=== PATIENT | female | born 1965 | race Caucasian/White ===

== ENCOUNTER 2018-03-20 07:45 | Outpatient (RCR) | payer SELFPAY ==
--- NOTE | 2018-03-21 08:28 | HP.OTFCE_ITS ---
HP OT Functional Capacity Eval - Task Lift Floor (Occasional 1-33% of Day): 30# Floor (Frequent 34-66% of Day): 15# Floor (Constant 67-100% of Day): 6# Floor PDL: Light-Medium Knee (Occasional 1-33% of Day): 30# Knee (Frequent 34-66% of Day): 15# Knee (Constant 67-100% of Day): 6# Knee PDL: Light-Medium Waist (Occasional 1-33% of Day): 30# Waist (Frequent 34-66% of Day): 15# Waist (Constant 67-100% of Day): 6# Waist PDL: Light-Medium Shoulder (Occasional 1-33% of Day): 20# Shoulder (Frequent 34-66% of Day): 10# Shoulder (Constant 67-100% of Day): NA Shoulder PDL: Light Overhead (Occasional 1-33% of Day): 15# Overhead (Frequent 34-66% of Day): 10# Overhead (Constant 67-100% of Day): NA Overhead PDL: Light Comments: pt demo with poor lifting mechanics, small base of support, and curved back while lifting from lower levels. - Work Activity/Posture Bending: Occasional Ability (1-33% of day) Squatting: Occasional Ability (1-33% of day) Kneeling: Occasional Ability (1-33% of day) Reaching out: Occasional Ability (1-33% of day) Reaching up: Occasional Ability (1-33% of day) Sitting: Frequent Ability (34-66% of day) Walking: Occasional Ability (1-33% of day) Standing: Occasional Ability (1-33% of day) - Reference Duration Sedentary Sedentary Light Light Light Medium Medium Medium Heavy Very Heavy Heavy Occasional (0-33% of day) Frequent (34-66% of day) Constant (67-100% of day) 10 # Negligible Negligible 15 # 8 # Negligible 20 # 10# Negli. 35 # 18 # 7 # 50 # 25 # 10 # 75 # 100 # >100 # 38 # 50 # >50 # 15 # 20 # >20 # - Patient Information Height: 1.57 m Weight:: 90.718 kg Hand Dominance: Right - Medical History Medical History Including Restrictions: Pt states 2013 she had a rotator cuff sx followed with physical therapy. Pt states she could not return to work- Pt states she was dx in 2015 Fibromyalgia. 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 Pt states she was seeing pain mtg from [id number] for injection for neck and back pain. Pt states she lost her medical insurance throught the school and could no longer get her pain injections. Pts pain is mtg by family doctor Dr. Murillo. Pt states her pain mtg dr. mcdowell put her on a lift restriction of no more than 25#. pt does not exercise on a regular basis. - Diagnoses Diagnoses: Lumbago M54.5. Cirvicalgia M54.2 dx. 2012. Fibromyalgia M79.7 - Symptoms Symptoms: LE swelling. Back pain. Neck pain. Bilateral shoulder pain. Dizzy. Tired. Sore muscles - Pain Pain: Pt reports her current pain is 7/10 with pain medication. 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 Pt states she was driving buses for eight and half years. pt states she was unable to return to driving bus following a right shoulder sx. Pt states she was unable to open the bus doors following sx. 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 - Behavioral Behavioral: pt was cooroperative throughout assessment- demo flat affect throughout. - ADLS ADLS: Pt states she lives with her spouse and two sons (ages 18 &16) in a ranch home with a basement. Pt states she has two entry steps. Pt states she can go up and down the basement steps but rarly does because it it such a challenge.Pt states she drives ind. Pt states she is ind. with bathing. pt states she does have trouble getting shirts over her head that required her dtr to help her. Pt states in the last two weeks she has needed her dtrs help about 6 times with dressing. Pt states her family helps with laundry and she will sit and fold the laundry. Pt states her 16 and 18 year old sons and help her with cooking. pt states dtr does the cleaning. Pt states her spouse does the grocery shopping. - Physical Examination ROM: Pt demo with all ROM WFL grossly throughout. Strength: Pt was inconsistan with MMT- testing same UB/LB between 4-/5 and 4+/5 Right Property Assistant Strength Average: 24.00 Right Property Assistant Strength Percentile: <.2% Left Property Assistant Strength Average: 13.33 Left Property Assistant Strength Percentile: <.2% Right Lateral Pinch Average: 4.00 Right Lateral Pinch Percentile: <10% Left Lateral Pinch Average: 3.33 Left Lateral Pinch Percentile: <10% Right Tripod Pinch Average: 4.66 Right Tripod Pinch Percentile: <10% Left Tripod Pinch Average: 4.66 Left Tripod Pinch Percentile: <10% Comments: pt demo a weak delivery associate and pinch strength Sensation: Did not report sensation deficit Fine Motor: right 9 hole peg 30 sec,. left 9 hole peg 28 sec. Balance: No loss of balance. - Non Material Handling Activities Bending: Pt demo the ability to bend forward three times, ten times and ten times rapidly. pt states she felt sore in her legs and back. Pt reported 7/ 10.pt can bend forward on a occasional basis. Squatting: pt demo the ability to squat three times with external support- pt did completed ten times and ten times rapidly (no increase in pace) with poor tyler. and utilized UB more than LE- pt can squat on a low occasional basis. Kneeling: pt demo the ability to kneel three times, ten times and ten times rapidly. pt did use external support to perform this task. Pt also switched LE with task. pt can kneel on a occasional basis with use of external support. Reaching out/up: Pt demo the ability to reach out/up three times, ten times and ten times rapidly. pt performed task sitting. pt can reach up/out on a occasional basis. Pt reported she felt exhausted following. Walking: Pt demo the abilty to ambulate for 9 min. with a slow antalgic gait. Pt reported body hurts everywhere, 8/10 pain. Pt demo the ability to amb on a occasional basis. Standing: PT demo the ability to stand for 4 min using counter top to lean on. pt can stand on a low occasional basis. Sitting: Pt demo the ability to sit for 45 min with no expressed or apparent discomfort. pt can sit on a frequent basis. Climbing Stairs: pt demo the ability to ascend/descend ten steps using bilateral hand rails and a reciprical step pattern. - Dynamic Occasional Lifting Capacity Floor Lift: pt demo the ability to lift 30# maximally from this level. Knee Lift: pt demo the ability to lift 30# maximally from this level. Waist Lift: pt demo the ability to lift 30# maximally from this level. Shoulder Lift: pt demo the ability to lift 20# maximally from this level. Overhead Lift: pt demo the ability to lift 15# maximally from this level. Carrying: pt demo the ability to carry 15 # for 40 feet. 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 Pt stated her back was killling her following the lifting tasks. Pt reported back pain 03/30.
== END 2018-03-20 19:00 | disposition home or self-care (01) ==
LOC: OT 07:45
PROVIDERS: Family Provider Internal Medicine; PCP Internal Medicine; Visit Provider Internal Medicine
DX: M54.5 Low back pain (principal); M54.2 Cervicalgia; M79.7 Fibromyalgia
CPT/HCPCS: 97750

== ENCOUNTER 2019-04-28 21:00 | Emergency (ER) | payer SELFPAY ==
[2019-04-28 21:00] VITALS: BP 112/82; PULSE 88; RESP 16; TEMP 36.6; O2SAT 97; BMI 38.6
[2019-04-28 21:14] VITALS: BP 112/82; PULSE 88; RESP 16; O2SAT 97
--- NOTE | 2019-04-28 21:17 | ED.DCSUM_ITS ---
- ER Visit Summary Date of Service: 04/28/19 Chief Complaint: Back pain History of Present Illness: The patient is a 53 F with history of chronic back pain. She has back pain in her lower left lumbar region that radiates down her leg. This has been going on for 3 days. Worse with gardening. Nothing seemed to make it better. She normally is prescribed fentanyl patches, but she says she ran out because sweat makes them fall off. Denies any urinary or bowel symptoms. Denies any weakness. Denies fevers or recent illness. Denies any direct trauma. Physical Examination: Afebrile and vital signs unremarkable. Left lower lumbar region is tender to palpation. Straight leg raise negative. Good strength and sensation. Legs unremarkable. Abdomen soft and nontender. Test Results: None indicated Emergency Department Course and Treatment: There is no indication for imaging or diagnostic testing. I advised that I cannot refill her fentanyl patches. She needs to follow-up with her physician if there is a problem with her prescriptions. We will treat her with Littcarr and a shot of Kenalog here today. She may use aead-owk-jkubvop remedies at home. We will not prescribe controlled substances. Treatment Plan: As above Disposition: Discharge Impression: 1. Left sciatica This note was generated with [employer] dictation software. It may contain incorrect words, spelling, and punctuation that were not noted in review of the chart prior to signing ED Disposition - Plan for ED Patient: Referrals: Jabari Murillo MD [Primary Care Provider] -
--- NOTE | 2019-04-28 21:18 | ED.DEP ---
ED Disposition - Plan for ED Patient: Instructions: BACK PAIN w/ SCIATICA Referrals: Jabari Murillo MD [Primary Care Provider] -
[2019-04-28] MEDS: Triamcinolone Acetonide 40 MG/ML Vial IM (21:28)
[2019-04-28] MEDS: HYDROcodone Bitartrate/Apap 5/325 Tablet PO (21:28)
== END 2019-04-28 21:47 | disposition home or self-care (01) ==
LOC: ED 21:27
PROVIDERS: Emergency Provider Emergency Medicine; Family Provider Internal Medicine; PCP Internal Medicine
DX: M54.42 Lumbago with sciatica, left side (principal)
CPT/HCPCS: 96372; 99283

== ENCOUNTER → 2020-05-11 12:05 | Outpatient (CLI) | payer MEDICAID, SELFPAY ==
[2020-05-11 12:35] LABS: Hematocrit 35.3 % (37-47); Hemoglobin 10.4 g/dL (12.0-15.0); Mean Corp Hgb Conc 29.5 g/dL (32-36); Mean Corpuscular Volume 81.5 fL (81-99); Mean Platelet Vol. 9.1 fl (6.2-12.0); Platelet Count 288 K/mm3 (150-450); RBC Distribution Width CV 15.1 % (11.6-14.6); RBC Distribution Width SD 44.5 fl (35.1-43.9); Red Blood Count 4.33 M/mm3 (4.2-5.4); White Blood Count 9.5 K/mm3 (4.4-11.0)
[2020-05-11 12:53] LABS: ALB/GLOB Ratio 0.9 RATIO (0.9-2.4); AST(SGOT) 43 U/L (15-37); Alanine Aminotransfer ALT/SGPT 40 U/L (13-56); Albumin, Serum 3.4 g/dL (3.2-5.0); Alkaline Phosphatase 185 U/L (45-117); Amylase 25 U/L (25-115); Anion Gap 7 (5-15); BUN 11 mg/dL (7-18); BUN/Creat Ratio 11.9 RATIO (10-20); Calcium,Total 9.5 mg/dL (8.5-10.1); Chloride 107 mmol/L (98-107); Creatinine, Serum 0.93 mg/dL (0.55-1.02); EST Glomerular Filtration Rate 67 mL/min (>60); Est Glom Filt Rate - Afr Amer 81 mL/min (>60); Globulin 3.8 g/dL (2.2-4.2); Glucose 155 mg/dL (74-106); Lipase 42 U/L (73-393); Potassium 3.9 mmol/L (3.5-5.1); Protein, Total 7.2 g/dL (6.4-8.2); Sodium Level 141 mmol/L (136-145)
== END ==
PROVIDERS: PCP Internal Medicine; Visit Provider Nurse Practitioner
DX: R10.11 Right upper quadrant pain (principal)
CPT/HCPCS: 36415; 80053; 82150; 83690; 85027

== ENCOUNTER → 2020-06-10 17:47 | Outpatient (CLI) | payer MEDICAID, SELFPAY ==
[2020-05-19 10:08] VITALS: BMI 38.6
== END ==
PROVIDERS: PCP Internal Medicine; Referring Provider Internal Medicine; Visit Provider Internal Medicine
DX: R68.89 Other general symptoms and signs (principal)
CPT/HCPCS: 87635; 87804; C9803; U0003

== ENCOUNTER 2020-06-17 14:15 | Emergency (ER) | payer MEDICAID, SELFPAY ==
[2020-05-19 10:08] VITALS: BMI 38.6
[2020-06-17 14:15] VITALS: BP 155/110; PULSE 90; RESP 18; TEMP 36.5; O2SAT 96; BMI 38.9
--- NOTE | 2020-06-17 14:41 | ED.DCSUM_ITS ---
- ER Visit Summary Date of Service: 06/17/20 Chief Complaint: Shortness of breath History of Present Illness: The patient is a 55 F who presents with shortness of breath that has been getting worse over the past 9 days. Patient states her breathing is worse with any exertion. Patient admits to a cough with some brown sputum. Patient also admits to a sore throat, rhinorrhea, and right ear pain. Patient states she was diagnosed with COVID-19 1 week ago. Patient admits to a fever of 102 at home. Patient admits to loss of taste and smell. Patient denies any chest pain. Patient does admit to some myalgias and back pain. Patient admits to some mild nausea but denies any vomiting. Physical Examination: Vital signs are stable. Patient is afebrile. Patient is in no acute distress. Oral mucosa is pink and moist. Neck is supple. Trachea is midline. There is no JVD noted. Heart was regular rate and rhythm. Lungs showed rales in the left base. Abdomen is soft. Bowel sounds are normal. There is no tenderness. There is no rebound or guarding noted. Skin is warm d ry. Cranial nerves II through XII are intact. There are no focal motor or sensory deficits noted. Extremities are intact. There is no calf tenderness or edema. Test Results: CBC and comprehensive metabolic profile were essentially within normal limits. Portable chest x-ray shows diffuse pulmonary infiltrates with consolidation in the left lung base consistent with pneumonia. Emergency Department Course and Treatment: Patient was given albuterol inhaler here. Patient was feeling better on reevaluation. Patient was given her first dose of Zithromax here. Patient was given a prescription for Zithromax. Patient was instructed to follow-up with her primary care physician in 5 to 7 days. Patient was instructed to return if worse in any way. Patient understood and was agreeable with the plan. All questions were answered. Disposition: Discharge home Impression: 1. Pneumonia 2. COVID-19 This note was generated with [employer] dictation software. It may contain incorrect words, spelling, and punctuation that were not noted in review of the chart prior to signing ED Disposition - Plan for ED Patient: Disposition: Home or Assisted Living Diagnosis: Pneumonia, COVID-19 Instructions: ED PNEUMONITIS Adult Prescriptions: Azithromycin [Zithromax] 250 mg PO DAILY #4 tab Transmission Status: Pending to As Seen on TV #30 Referrals: Jabari Murillo MD [Primary Care Provider] - 5-7 Days
[2020-06-17 14:51] VITALS: O2SAT 100
--- NOTE | 2020-06-17 14:55 | RAD_ITS ---
STUDY: X-RAY CHEST REASON FOR EXAM: Female, 55 years old. Worsening shortness of breath. Diagnosed with COVID 19 10 days ago. TECHNIQUE: Single AP portable view of the chest. COMPARISON: None. FINDINGS: The lungs are hypoexpanded. There is diffuse interstitial changes in both lungs were evidence of consolidation in the lateral left lung base. There is no demonstrated pleural abnormality. Normal size heart. Normal mediastinum and kristy. Normal visualized pulmonary arteries. Normal visualized aortic arch and descending thoracic aorta. There is mild dextroscoliosis and degenerative changes of the thoracic spine. Normal visualized ribs, clavicles, and shoulders. There is no demonstrated abnormality of the visualized soft tissue structures of the upper abdomen. RAD/Chest 1 View (Portable) IMPRESSION: Diffuse pulmonary infiltrates with consolidation at the left lung base consistent with pneumonia. Electronically Signed: Nitin Rushing DO at 16:32 EDT Tel [phone], Service support ,
[2020-06-17 15:09] LABS: Absolute Lymphocyte Count 0.71 X10^3/uL (0.83-4.51); Absolute Neutrophil Count 3.7 X10^3/uL (2.0-7.7); Basophil# 0.01 X10^3/uL; Basophil% 0.2 % (0-1); Eosinophil# 0.04 X10^3/uL; Eosinophils% 0.8 % (0-5); Hematocrit 33.8 % (37-47); Hemoglobin 10.1 g/dL (12.0-15.0); Lymphocyte # 0.71 X10^3/ul (4.0); Lymphocyte % 14.4 % (19-41); Mean Corp Hgb Conc 29.9 g/dL (32-36); Mean Corpuscular Hgb 24.3 pg (27.0-32.0); Mean Corpuscular Volume 81.4 fL (81-99); Mean Platelet Vol. 8.7 fl (6.2-12.0); Monocyte# 0.44 X10^3/uL; Monocyte% 8.9 % (0-10); NRBC Flagged by Analyzer 0 % (0-5); Neutrophil # 3.69 X10^3/uL (2.7-7.7); Neutrophil % 74.7 % (47-70); Platelet Count 226 K/mm3 (150-450); Red Blood Count 4.15 M/mm3 (4.2-5.4); White Blood Count 4.9 K/mm3 (4.4-11.0)
[2020-06-17 15:19] LABS: ALB/GLOB Ratio 0.7 RATIO (0.9-2.4); AST(SGOT) 29 U/L (15-37); Alanine Aminotransfer ALT/SGPT 29 U/L (13-56); Albumin, Serum 2.9 g/dL (3.2-5.0); Alkaline Phosphatase 199 U/L (45-117); Anion Gap 6 (5-15); BUN 8 mg/dL (7-18); BUN/Creat Ratio 10.3 RATIO (10-20); Chloride 108 mmol/L (98-107); Creatinine, Serum 0.78 mg/dL (0.55-1.02); EST Glomerular Filtration Rate 82 mL/min (>60); Est Glom Filt Rate - Afr Amer 99 mL/min (>60); Globulin 4.4 g/dL (2.2-4.2); Glucose 143 mg/dL (74-106); Potassium 4.1 mmol/L (3.5-5.1); Protein, Total 7.3 g/dL (6.4-8.2); Sodium Level 141 mmol/L (136-145)
[2020-06-17 16:16] VITALS: BP 111/71; PULSE 103; RESP 21; TEMP 36.6; O2SAT 95
[2020-06-17 17:06] VITALS: BP 111/72; PULSE 106; RESP 18; TEMP 36.7; O2SAT 97
[2020-06-17 17:07] VITALS: BP 111/72; PULSE 106; RESP 18; O2SAT 97
[2020-06-17] MEDS: Azithromycin 250 MG Tablet 500 MG PO (17:11)
== END 2020-06-17 17:12 | disposition home or self-care (01) ==
PROVIDERS: Emergency Provider Emergency Medicine; PCP Internal Medicine
DX: U07.1 COVID-19 (principal); J12.89 Other viral pneumonia
CPT/HCPCS: 71045; 80053; 83605; 85025; 87040; 99283; A4216

== ENCOUNTER → 2020-07-30 13:27 | Outpatient (CLI) | payer MEDICAID, SELFPAY ==
--- NOTE | 2020-07-30 13:33 | RAD_ITS ---
STUDY: X-RAY - LUMBAR SPINE REASON FOR EXAM: Female, 55 years old. CHRONIC PAIN TECHNIQUE: 3 view(s) of the lumbar spine were obtained. COMPARISON: None FINDINGS: Normal lumbar lordosis. There is no substantial scoliosis. There is multilevel endplate spondylosis of the lumbar vertebrae. There is multi-level degenerative disc disease with multi-level disc space narrowing. RAD/Lumbar Spine 2 or 3 Views IMPRESSION: Multi-level degenerative disc disease with multi-level disc space narrowing. Electronically Signed: Megha Andres MD at 11:06 EST Tel , Service support ,
--- NOTE | 2020-07-30 13:33 | RAD_ITS ---
STUDY: X-RAY - CERVICAL SPINE REASON FOR EXAM: Female, 55 years old. Chronic pain. Fall this morning. TECHNIQUE: 3 view(s) of the cervical spine were obtained. COMPARISON: None FINDINGS: Normal anterior atlantoaxial articulation. Normal odontoid process. Normal cervical lordosis. Diffuse uncovertebral and facet sclerosis. Diffuse intervertebral disc space narrowing with osteophyte formation most marked at C3-4, C5-6 and C6-7. The soft tissue structures are unremarkable. RAD/Cerv Spine 2 or 3 Views IMPRESSION: Diffuse moderate to marked cervical spondylosis as described. No acute finding. Electronically Signed: Marin Landaverde MD at 13:22 EST , Service support ,
== END ==
PROVIDERS: PCP Internal Medicine; Referring Provider Anesthesiology Pain Medicine; Visit Provider Anesthesiology Pain Medicine
DX: M54.9 Dorsalgia, unspecified (principal); M54.2 Cervicalgia
CPT/HCPCS: 72040; 72100

== ENCOUNTER → 2024-09-11 | Outpatient (CLI) | payer OTHER, SELFPAY ==
--- NOTE | 2024-09-11 12:36 | RAD_ITS ---
EXAM: XR CERVICAL SPINE, 2 OR 3 VIEWS CLINICAL INDICATION: PAIN TECHNIQUE: Frontal and lateral views of the cervical spine. COMPARISON: 07/30/2020. FINDINGS: VERTEBRAE: No acute or remote fractures of the vertebral bodies and posterior osseous elements. No lytic or blastic lesions. DISC SPACES: More pronounced degenerative disc space narrowing with increased vertebral endplate sclerosis at C3-C4 disc space level. Moderate disc space narrowing at C5-C6 and C6-C7 disc space levels with anterior marginal spurs are unchanged. Moderate C7-T1 disc space narrowing is a new finding. No acute fractures. SOFT TISSUES: Unremarkable. No prevertebral soft tissue widening. LUNG APICES: Clear. RAD/Cerv Spine 2 or 3 Views IMPRESSION: 1. More pronounced degenerative disc space with increased endplate sclerosis at C3-C4 disc space level. 2. Moderate C7-T1 disc space height narrowing is a new finding. 3. Moderate C5-C6 and C6-C7 disc space narrowing are unchanged. Electronically Signed: Deangelo Conn MD at 16:09 EST ,
--- NOTE | 2024-09-11 12:36 | RAD_ITS ---
EXAM: XR THORACIC SPINE, 3 VIEWS CLINICAL INDICATION: PAIN TECHNIQUE: Frontal, lateral and swimmer''s views of the thoracic spine. COMPARISON: 02/13/2012. FINDINGS: VERTEBRAE: Mild old anterior wedge compression fractures involving T7, T8 and T9 vertebral bodies are unchanged. No spondylolisthesis. Preservation of the normal thoracic kyphosis. No significant facet arthropathy. DISC SPACES: Unremarkable. Disc spaces are maintained. RAD/Thoracic Spine 3 Views IMPRESSION: 1. No suspicious acute fractures of the thoracic spine. 2. Mild old anterior wedge compression fractures involving T7, T8 and T9 are unchanged. Electronically Signed: Deangelo Conn MD at 16:11 EST ,
== END | disposition home or self-care (01) ==
LOC: RAD 12:32
PROVIDERS: PCP Internal Medicine; Referring Provider Anesthesiology Pain Medicine; Visit Provider Anesthesiology Pain Medicine
DX: M54.9 Dorsalgia, unspecified (principal)
CPT/HCPCS: 72040; 72072

== ENCOUNTER 2025-03-20 10:30 | Outpatient (RCR) | payer OTHER, SELFPAY ==
--- NOTE | 2025-02-03 09:12 | HP.PTEVAL_ITS ---
Patient's Visit Information Visit Information Visit Information: CHICA SHAH is a 59 year old F referred to Physical Therapy by Dr. Hemalatha Negro MD with a diagnosis of Back pain, neck pain. Date of Evaluation: 02/03/25 Physical Therapist: Schuyler Conway, DPT, OCS, CSCS Visit Plan Frequency: 2x /Week Duration: 4-6 Weeks Plan: 2x/weeek for 4-6 for aquatic based therapy for: core , postural and UE/LE strength to I pool or HEP. ext bias lumbar ROM, postural correction. IE: pool intro and policies, postural education, activitiy modification with position in car and overdoing gardening at home. Subjective Subjective: Neck and cervical and b/w shoulder blades and into LB. They have hurt for years. [place] up [place] Lots of work. Neck shoulder blade pain to 10 and some days 0, took pain pills this am. Pulling weeds makes it worse. somebody's got to do it. LB 0-9/10 and keeps her up at night, was in garden a lot yesterday. Weak in legs. Feet an get numb. These are worse later in day. 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 No regular ex. Basic ADLs, all I sometimes hurt. Pain Neck, shoulder baldes.: Pain Intensity (Out of 10): 1 Pain Intensity Range: 0 and 10 LBP: Pain Intensity (Out of 10): 1 Pain Intensity Range: 0 and 10 Objective Objective: Walks back to PT slow but I. Trasnfers with UE I chair and table. Lumb ar aROM ext mod limtid and painful centrally, flexiona dn SB fulla nd painfree today. cervical aROM 45 rotation B without pain, ext 40 . Posture is forward head and protractd scap B, postural kyphosis. reflexes 1/3 patella and achilles and bi and tri sensation UE and LE WNL to gross light touch B UE and L. strength UE 3+ shoulder elbow, shoulder rotations and wrist, LE strngth 3 flexion abd, ext hips, ext knees and 3+ HS, ankles 4-. no pain just not hard contraactions. core strength flexion 3 and ext 3. Obvious instability with seated testing. 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 Goal Time Frame: 4-6 Weeks Goal 5:: 14 or less oswestry Goal Time Frame: 4-6 Weeks Rehabilitation Potential Physical Therapy Diagnosis: back and nec weeakness and pain limiting comfortable funciton Rehabilitation Potential: Fair Anticipated Interventions Patient/Client Instruction: Educate patient on: Condition and Plan of Care For the Purpose of:: To decrease pain, To increase ROM, To improve nutrient delivery to tissue and To improve muscle performance and motor function Therapeutic Exercise to Include: Strength training, In an aquatic setting, Passive ROM, Active ROM and Dynamic Lumbar Stabilization For the Purpose of:: To decrease pain, To increase ROM, To improve muscle performance and motor function, To increase tolerance to activity/condition/position and To improve ability of physical actions for home/community/work/leisure Text: Thank you for the opportunity to evaluate your patient. For Medicare and Medicare HMO plans, please review the plan of care and approve it. It will need to be FAXED BACK to us at [phone] for Medicare purposes. For Medicare only, by signing this I certify the plan of care. Please let me know if there are questions or concerns regarding this plan of care. Physician Signature: Date:
--- NOTE | 2025-03-20 10:48 | HP.PTDCSUM ---
Discharge Summary D/C summary: It has been my pleasure to treat CHICA SHAH referred by Dr. Hemalatha Negro MD, with the diagnosis of Back pain, neck pain for a total of 6 visit(s). Discharge Date: 03/20/25 Please see the following information for a summary of their discharge status. Subjective Subjective: Not doing much better pain lorenzo, saw Gavinoantony last week adn is putting in for injections in neck and LB. Pain is about the same 5-8/10. LB is killer 9/10 at times. Was daniel last night sitting and it was hurting pretty good. Did up to 8 hours worth. HEP at counter: hurt a little. Pool can hurt LB but feeels better in the water. Pain Neck, shoulder baldes.: Pain Intensity (Out of 10): 5 LBP: Pain Intensity (Out of 10): 5 Overall Improvement % Improvement: 0 Objective Objective/Function: Lumb ar AROM ext min limited and painful. SB without increaseed pain, flexion slow but not painful, just stretchy. Walks into PT without antalgia and stiff but I with gait and transfers. 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 d/c sentence: If there are questions or concerns regarding this patient's physical therapy, please feel free to call me at [phone]. Thank you for the referral of this patient. Sincerely, Schuyler Conway, DPT, OCS, CSCS Balance/Gait/Functional tests Balance/Special Test Scores Oswestry Low Back Score: 25 Improvement % Improvement: 0
== END 2025-03-20 12:26 | disposition home or self-care (01) ==
LOC: PT 10:30
PROVIDERS: PCP Internal Medicine; Referring Provider Anesthesiology Pain Medicine; Visit Provider Anesthesiology Pain Medicine
DX: M54.2 Cervicalgia (principal)
CPT/HCPCS: 97113; 97161; 97164

== ENCOUNTER → 2025-05-12 | Outpatient (CLI) | payer OTHER, SELFPAY ==
[2025-05-12 11:19] LABS: AST(SGOT) 27 U/L (<=31); Alanine Aminotransfer ALT/SGPT 24 U/L (<=34); Albumin, Serum 4.3 g/dL (3.4-4.8); Alkaline Phosphatase 157 U/L (35-104); Anion Gap 12 (5-15); BUN 11 mg/dL (4-19); BUN/Creat Ratio 15.6 RATIO (10-20); Calcium,Total 9.3 mg/dL (7.6-11.0); Carbon Dioxide 23.1 mmol/L (21.0-32.0); Chloride 108 mmol/L (98-108); Globulin 2.4 g/dL (2.2-4.2); Glucose 81 mg/dL (70-99); Potassium 4.0 mmol/L (3.3-5.1)
== END | disposition home or self-care (01) ==
PROVIDERS: PCP Internal Medicine; Referring Provider Nurse Practitioner; Visit Provider Nurse Practitioner
DX: E11.69 Type 2 diabetes mellitus with other specified complication (principal); E66.9 Obesity, unspecified; E03.9 Hypothyroidism, unspecified
CPT/HCPCS: 36415; 80053; 83036; 84443

== ENCOUNTER → 2025-05-15 | Outpatient (CLI) | payer OTHER, SELFPAY ==
--- NOTE | 2025-05-15 15:09 | MRI_ITS ---
PROCEDURE: SPINE CERVICAL (ROUTINE) 05/15/2025 REASON FOR EXAM: RADICULOPATHY CERVICAL REGION TECHNIQUE: Procedure Code: MRISPC Modality: MR Procedure: SPINE CERVICAL (ROUTINE) Multiplanar and multisequence images were obtained without IV contrast administration. COMPARISON: None available. FINDINGS: The visualized posterior fossa contents appear within normal limits. The normal cervical lordosis is maintained. The atlantooccipital and atlantoaxial joints appear normally aligned. The cervical vertebral bodies are normal in height. The cervical vertebral bodies are normal in alignment. The cervical bone marrow signal is within normal limits. Multilevel disc desiccation and intervertebral disc space height loss. There is questionable trace T2/STIR hyperintensity of the cord at C3-C4. The remaining cervical spinal cord signal is otherwise within normal limits. C2-C3: No significant spinal canal stenosis. Facet arthrosis and uncovertebral spurring contribute to moderate left neural foraminal narrowing. Intact right neural foramen. C3-C4: Posterior disc osteophyte complex formation, bilateral facet arthrosis, uncovertebral spurring and ligamentum flavum hypertrophy contribute to moderate to severe spinal canal stenosis with indentation of the cord. Moderate bilateral neural foraminal narrowing. C4-C5: Posterior disc osteophyte complex formation, bilateral facet arthrosis, uncovertebral spurring, and ligamentum flavum hypertrophy contribute to moderate spinal canal stenosis with indentation of the ventral cord. Moderate right and severe left neural foraminal narrowing. C5-C6: Central disc protrusion, bilateral facet arthrosis, uncovertebral spurring, and ligamentum flavum hypertrophy contribute to moderate spinal canal stenosis. Moderate bilateral neural foraminal narrowing. C6-C7: Central disc protrusion, bilateral facet arthrosis, and uncovertebral spurring contribute to moderate spinal canal stenosis. Moderate bilateral neural foraminal narrowing. C7-T1: Central disc protrusion, bilateral facet arthrosis, and uncovertebral spurring contribute to mild spinal canal stenosis. Mild bilateral neural foraminal narrowing. MRI/Spine Cervical (Routine) IMPRESSION: Advanced multilevel cervical spondylosis most marked at C3-C4 where there is mo [id number] spinal canal stenosis with impingement of the cord. Questionable trace edematous cord signal change at th is level. The remaining cervical spinal cord signal is within normal limits. In compliance with [place] State Law Act 112, an automated letter has been sent to this patient notifying them that there are findings on this exam that warrant further discussion with their healthcare provider. Communication Alert The findings in the impression above were relayed directly by Dr. America Goddard by telephone to Dr. Hemalatha Negro on 05/19/2025 at 9:37 am with readback verification. Reading Location: [id number]
== END | disposition home or self-care (01) ==
LOC: MRI 15:00
PROVIDERS: PCP Internal Medicine; Referring Provider Anesthesiology Pain Medicine; Visit Provider Anesthesiology Pain Medicine
DX: M54.12 Radiculopathy, cervical region (principal)
CPT/HCPCS: 72141

== ENCOUNTER → 2025-06-30 | Outpatient (CLI) | payer OTHER, SELFPAY ==
--- NOTE | 2025-06-30 12:45 | RAD_ITS ---
PROCEDURE: CERV SPINE 4 OR 5 VIEWS 06/30/2025 REASON FOR EXAM: NECK PAIN TECHNIQUE: Procedure Code: [facility] Modality: DX Procedure: CERV SPINE 4 OR 5 VIEWS COMPARISON: 05/15/2025. 09/11/2024. FINDINGS: No evidence of acute fracture or dislocation. Severe degenerative changes of the visualized spine. Vertebral body heights are maintained. Normal alignment. RAD/Cerv Spine 4 or 5 Views IMPRESSION: Severe spondylosis. Disclaimer: Reading Location: [id number]
== END | disposition home or self-care (01) ==
LOC: RAD 12:19
PROVIDERS: PCP Internal Medicine; Referring Provider Student in an Organized Health Care Education/Training Program; Visit Provider Student in an Organized Health Care Education/Training Program
DX: M54.2 Cervicalgia (principal)
CPT/HCPCS: 72050

== ENCOUNTER 2025-07-30 14:44 | Observation (INO) | payer OTHER, SELFPAY ==
--- NOTE | 2025-07-29 12:36 | EKG12_ITS ---
Test Reason : PREOP Blood Pressure : */* mmHG Vent. Rate : 100 BPM Atrial Rate : 100 BPM P-R Int : 118 ms QRS Dur : 76 ms QT Int : 340 ms P-R-T Axes : 59 22 20 degrees QTcB Int : 438 ms Normal sinus rhythm Normal ECG Confirmed by Elpidio Norman ([id number]), society editor AMANDEEP MANN ([id number]) on 07/30/2025 11:39:13 AM Referred By: Frank Hong Confirmed By: Elpidio Norman
[2025-07-29 13:36] LABS: Hematocrit 36.7 % (37-47); Hemoglobin 11.9 g/dL (12.0-15.0); Immature Granulocytes Count 0.030 X10^3/uL (0.0-0.0); Mean Corp Hgb Conc 32.4 g/dL (32-36); Mean Corpuscular Volume 85.3 fL (81-99); Mean Platelet Vol. 9.1 fl (6.2-12.0); NRBC Flagged by Analyzer 0 % (0-5); Platelet Count 266 K/mm3 (150-450); RBC Distribution Width CV 13.6 % (11.6-14.6); RBC Distribution Width SD 42.2 fl (35.1-43.9); Red Blood Count 4.30 M/mm3 (4.2-5.4); White Blood Count 8.0 K/mm3 (4.4-11.0)
[2025-07-29 14:07] LABS: Anion Gap 11 (5-15); BUN 9 mg/dL (4-19); BUN/Creat Ratio 12.3 RATIO (10-20); Calcium,Total 10.0 mg/dL (7.6-11.0); Carbon Dioxide 26.5 mmol/L (21.0-32.0); Chloride 105 mmol/L (98-108); Glucose 112 mg/dL (70-99); Potassium 4.2 mmol/L (3.3-5.1)
[2025-07-29 14:52] LABS: Magnesium 2.1 mg/dL (1.5-2.2)
[2025-07-30] VITALS (15 sets, daily range): BP systolic 117–175; BP diastolic 66–115; PULSE 73–125; RESP 16–18; TEMP 36–37.3; O2SAT 95–100; BMI 27.1
--- OUTSIDE RECORDS SUMMARY | 2025-07-30 05:52 | XMS RPT_ITS | CCD ---
Author Organization [facility] Care Team Providers Care Umbrella Mender Name Role Phone Jabari Murillo MD Primary Care Provider [phone] CHIDI BLUM, DR SMITH Primary Care Physician Jabari Murillo MD Primary Care Provider SUKHDEV BURRELL, AUDELIA Dejesus Attending Unavailable PHYSICIAN, NONE Primary Care Unavailable SUKHDEV BURRELL, AUDELIA Dejesus Attending Unavailable DR JABARI MURILLO MD Primary Care Unavailjennifer SANTIZO DPM, AUDELIA Dejesus Attending Unavailable DR JABARI MURILLO MD Primary Care Unavailjennifer Soni MD, Yrn Unavailable Zachariah BLUM, Yrn Unavailable Zachariah BLUM, Yrn Unavailable Jabari Murillo MD Primary Care Provider [phone] LIZ LECHUGA Attending Unavailable ALYCIA ROJAS Referring Unavailable Chad MRI MANAGER.Cecilia VOGEL Unavailable [phone] Dr. Jabari Murillo MD Primary Care Provider Dr. Hemalatha Negro MD Attending Provider Dr. Hemalatha Negro MD Referring Provider JABARI MURILLO Referring Unavailable JABARI MURILLO Primary Care Unavailable CECILIA WHITLOCK Attending Unavailable JABARI MURILLO Referring Unavailable JABARI MURILLO Primary Care Unavailable CECILIA WHITLOCK Referring Unavailable JABARI MURILLO Primary Care Unavailable CECLIIA WHITLOCK Attending Unavailable JABARI MURILLO Referring Unavailable JABARI MURILLO Primary Care Unavailable MURILLO, LUBNA Attending Unavailable MURILLO, LUBNA Referring Unavailable MURILLO, LUBNA Primary Care Unavailable MURILLO, LUBNA Referring Unavailable MURILLO, LUBNA Primary Care Unavailable Murillo, Jabari Primary Care Unavailable Murillo, Jabari Referring Unavailable Juliet, Didi Attending Unavailable Murillo, Jabari Primary Care Unavailable Basali, Ayman Attending Unavailable Basali, Ayman Referring Unavailable Chad GEOSPATIAL SCIENTIST, Cecilia Attending Unavailable Chad GEOSPATIAL SCIENTIST, Cecilia Referring Unavailable Murillo, Jabari Primary Care Unavailable Murillo, Jabari Primary Care Unavailable Basali, Ayman Attending Unavailable Basali, Ayman Referring Unavailable Murillo, Jabari Primary Care Unavailable Basali, Ayman Attending Unavailable Basali, Ayman Referring Unavailable Murillo, Jabari Primary Care Unavailable Juliet, Didi Attending Unavailable Juliet, Didi Referring Unavailable Allergies Allergy Classification Reported Allergen(s) Allergy Type Date of Onset Reaction(s) Facility (20 sources) celecoxib; Translations: [CELECOXIB] Drug Allergy 1 Rash [facility] (20 sources) Latex; Translations: [LATEX] Propensity to adverse reactions 0 Intolerance [facility] Work Phone: (19 sources) Non-steroidal anti-inflammato ry agent; Translations: [NSAIDS (NON-STEROIDAL ANTI-INFLAMMATO RY DRUG)] Propensity to adverse reactions to drug 4 Other: See Comments [facility] (20 sources) Non-steroidal anti-inflammato ry agent Propensity to adverse reactions to drug 4 Other: See Comments [facility] (1 source) ALLERGIES NOT ON FILE; Translations: [ALLERGIES NOT ON FILE] Propensity to adverse reactions (disorder) [facility] 2 Repository Medications Current Medications Medication Drug Class(es) Dates Sig (Normalized) Sig (Original) amLODIPine 5 mg oral tablet (20 sources) Dihydropyridine Calcium Channel Diana Start: 12-06-2023 End: 11-20-2024 take 1 tablet by mouth once daily amLODIPine (NORVASC) 5 mg tablet Indications: Primary hypertension Take 1 tablet by mouth once daily. 90 tablet 1 11/20/2024 Active Start: 11-06-2023 End: 12-06-2023 take 1 tablet by mouth once daily amLODIPine (NORVASC) 2.5 mg tablet Take 1 tablet by mouth once daily. 30 tablet 1 11/06/2023 12/06/2023 Discontinued Comment on above: Take 1 tablet by mayelin once daily. amoxicillin 500 mg / clavulanate 125 mg oral tablet (3 sources) Penicillin-class Antibacterial Start: End: take 1 tablet by mouth every twelve hours amoxicillin-clavul anate potassium (AUGMENTIN) 500-125 mg per tablet Take 1 tablet by mouth every 12 hours for 7 days. 14 tablet 11/01/2024 11/08/2024 Active Start: 06-24-2020 End: 07-01-2020 take 1 tablet by mouth twice daily amoxicillin-clavulanic acid (AUGMENTIN) 875-125 mg per tablet Take 1 tablet by mouth twice daily for 7 days. 14 tablet 06/24/2020 07/01/2020 atorvastatin 20 mg oral tablet (20 sources) HMG-CoA Reductase Inhibitor Start: 09-27-2021 End: 04-02-2024 take 1 tablet by mouth three times weekly atorvastatin (LIPITOR) 20 mg tablet Indications: Hyperlipidemia, unspecified hyperlipidemia type Take 1 tablet by mouth three times a week. 36 tablet 3 04/02/2024 Active Comment on above: Take 1 tablet by mayelin three times a week. azithromycin 250 mg oral tablet (1 source) Macrolide Antimicrobial Start: 06-17-2020 take 1 tablet by mouth once daily Azithromycin 250 MG tablet Active 250 mg PO DAILY 4 0 June 17, 2020 12:00am biotin 5 mg oral capsule (20 sources) Start: 05-28-2014 take 1 capsule by mouth once daily Biotin 5 MG capsule Active 5 mg PO DAILY May 28, 2014 12:00am End: 04-27-2023 take 1 tablet by mouth once daily Biotin 1 mg tab Take 1 tablet by mouth once daily. 04/27/2023 Discontinued Comment on above: Take 1 tablet by mayelin once daily. calcium citrate 1500 mg / cholecalciferol 250 unt oral tablet (1 source) Vitamin D Start: 2013 Calcium Citrate-Vitamin D3 1 EACH tablet Active 1 NMA PO DAILY May 28, 2014 12:00am cholecalciferol 0.05 mg oral tablet (1 source) Vitamin D Start: 2013 Cholecalciferol (Vitamin D3) (Vitamin D) 2,000 UNIT tablet Active 5000 U PO DAILY May 28, 2014 12:00am dextromethorphan hydrobromide 30 mg / pyrilamine maleate 30 mg oral tablet (10 sources) Uncompetitive K-dvyrkf-K-aspartate Receptor Antagonist, Sigma-1 Agonist Start: 2024 take 1 tablet by mouth every six hours as needed pyrilamine-dextrometh orphan (CAPRON DMT) 30-30 mg tab Take 1 tablet by mouth every 6 hours as needed. 30 tablet 11/01/2024 Active diclofenac sodium 0.01 mg/mg topical gel (20 sources) Nonsteroidal Anti-inflammatory Drug Start: 2019 apply 2 g topically four times daily as needed for pain diclofenac sodium (VOLTAREN) 1 % topical gel Indications: Cervicalgia , Chronic low back pain, unspecified back pain laterality, unspecified whether sciatica present Apply 2 g to affected area four times daily as needed (pain.). 100 g 2 12/11/2019 Active Comment on above: Apply 2 g to affecte d area four times daily as needed (pain.). diphenhydrAMINE (20 sources) Histamine-1 Receptor Antagonist take 2 capsules by mouth once daily at bedtime diphenhydramine HCl (BENADRYL ALLERGY ORAL) Take 2 capsules by mouth daily at bedtime. Active take 2 capsules by m outh once daily at bedtime diphenhydramine HCl (BENADRYL ALLERGY OR AL) Take 2 capsules by mouth daily at bedtime. 0 Active Comment on above: Take 2 capsules by m outh daily at bedtime. docusate sodium 100 mg oral capsule (2 sources) Start: 06-10-20 take 1 capsule by mouth twice daily as needed for constipation Docusate Sodium (Colace) 100 MG capsule Active 100 mg PO TWICE DAILY NEEDED as needed for Constipation 10 September 09, 2014 1:00am doxycycline hyclate 100 mg oral tablet (4 sources) Tetracycline-clas s Drug Start: 08-03-20 End: 08-10-20 23 take 1 tablet by mouth twice daily doxycycline (VIBRA-TABS) 100 mg tablet Indications: Cellulitis of back except buttock Take 1 tablet by mouth two times a day for 7 days. 14 tablet 0 08/03/2023 08/10/2023 Active Start: 06-20-2023 End: 07-04-2023 take 1 tablet by mouth twice daily doxycycline (VIBRA-TABS) 100 mg tablet Take 1 tablet by mouth two times a day for 14 days. 28 tablet 0 06/20/2023 07/04/2023 Active Comment on above: Take 1 tablet by mayelin th two times a day for 14 days. Take 1 tablet by mayelin th two times a day for 7 days. dulaglutide (TRULICITY) 4.5 mg/0.5 mL pen injector (20 sources) Start: 02-26-20 inject 4.5 mg by subcutaneous injection every week dulaglutide (TRULICITY) 4.5 mg/0.5 mL pen injector Inject 4.5 mg subcutaneously one time a week. 2 mL 11 02/25/2025 Active Start: 04-23-2024 End: 02-25-2025 inject 4.5 mg by subcutaneous injection every week dulaglutide (TRULICITY) 4.5 mg/0.5 mL pen injector Inject 4.5 mg subcutaneously one time a week. 2 mL 04/23/2024 02/25/2025 Discontinued Start: 04-23-2024 inject 4.5 mg by sub cutaneous injection every week dulaglutide (TRULICITY) 4.5 mg/0.5 mL pen injector Inject 4.5 mg subcutaneously one time a week. 2 mL 11 04/23/2024 Active Start: 02-12-2024 End: 04-23-2024 inject 4.5 mg by subcutaneous injection every week dulaglutide (TRULICITY) 4.5 mg/0.5 mL pen injector Inject 4.5 mg subcutaneously one time a week. 4 mL 2 02/12/2024 04/23/2024 Discontinued Start: 02-12-2024 inject 4.5 mg by sub cutaneous injection every week dulaglutide (TRULICITY) 4.5 mg/0.5 mL pen injector Inject 4.5 mg subcutaneously one time a week. 4 mL 2 02/12/2024 Active Start: 09-15-2023 End: 11-22-2023 inject 4.5 mg by subcutaneous injection every week dulaglutide (TRULICITY) 4.5 mg/0.5 mL pen injector Inject 4.5 mg subcutaneously one time a week. 2 mL 5 09/15/2023 11/22/2023 Discontinued (Availability) Start: 09-15-2023 inject 4.5 mg by sub cutaneous injection every week dulaglutide (TRULICITY) 4.5 mg/0.5 mL pen injector Inject 4.5 mg subcutaneously one time a week. 2 mL 5 09/15/2023 Active Start: 06-30-2023 inject 4.5 mg by sub cutaneous injection every week dulaglutide (TRULICITY) 4.5 mg/0.5 mL pen injector Inject 4.5 mg subcutaneously one time a week. 2 mL 2 06/30/2023 Active Start: 04-04-2023 inject 4.5 mg by sub cutaneous injection every week dulaglutide (TRULICITY) 4.5 mg/0.5 mL pen injector Inject 4.5 mg subcutaneously one time a week. 2 mL 2 04/04/2023 Active Comment on above: Inject 4.5 mg subcut aneously one time a week. DULoxetine 20 mg delayed release oral capsule (20 sources) Serotonin and Norepinephrine Reuptake Inhibitor Start: 11-21-19 take 1 capsule by mouth once daily DULoxetine (CYMBALTA) 20 mg capsule Indications: Fibromyalgia Take 1 capsule by mouth once daily. Added to 60 mg capsule. 90 capsule 1 11/20/2024 Active Start: 11-17-2021 End: 11-20-2024 take 1 capsule by mouth once daily DULoxetine (CYMBALTA) 60 mg capsule Indications: Fibromyalgia Take 1 capsule by mouth once daily. 90 capsule 1 11/20/2024 Active Start: 02-17-2020 End: 08-17-2020 take 1 capsule by mouth once daily DULoxetine (CYMBALTA) 60 mg capsule Indications: Fibromyalgia Take 1 capsule by mouth once daily. 90 capsule 1 02/17/2020 08/17/2020 Discontinued Comment on above: Take 1 capsule by [facility] once daily. 2 ml dupilumab 150 mg/ml prefilled syringe (20 sources) Interleukin-4 Receptor alpha Antagonist dupilumab 300 mg/2 m L subcutaneous syringe (DUPIXENT) Inject subcutaneously. Active ergocalciferol 1.25 mg oral capsule (20 sources) Provitamin D2 Compound Start: 04-04-20 End: 11-02-19 take 1 capsule by mouth every week ergocalciferol 50,000 unit capsule (VITAMIN D2, DRISDOL) Take 1 capsule by mouth one time a week. 12 capsule 11/01/2024 Active Comment on above: Take 1 capsule by mo [facility] one time a week. 72 hr fentaNYL 0.05 mg/hr transdermal system (2 sources) Opioid Agonist Start: 06-10-20 Fentanyl 50 MCG patch Active 50 ug TRANSDERM. Q72H 7 0 June 10, 2014 12:00am Start: 05-28-2014 Fentanyl 25 MC G patch Active 25 ug TRANSDERM. Q72H May 28, 2014 12:00am gabapentin 300 mg oral capsule (20 sources) Anti-epileptic Agent Start: 02-12-2024 End: 08-13-2025 take 3 capsules by mouth twice daily gabapentin (NEURONTIN) 300 mg capsule Indications: Fibromyalgia , Cervicalgia Take 3 capsules by mouth two times a day for 180 days. 180 capsule 5 02/14/2025 08/13/2025 Active Start: 10-19-2023 End: 04-16-2024 take 2 capsules by mouth twice daily gabapentin (NEURONTIN) 300 mg capsule Indications: Fibromyalgia , Cervicalgia , Chronic low back pain, unspecified back pain laterality, unspecified whether sciatica present Take 2 capsules by mouth two times a day for 180 days. 360 capsule 1 10/19/2023 02/12/2024 Discontinued Start: 04-04-2023 End: 10-17-2023 take 2 capsules by mouth twice daily gabapentin (NEURONTIN) 300 mg capsule Indications: Fibromyalgia , Cervicalgia , Chronic low back pain, unspecified back pain laterality, unspecified whether sciatica present Take 2 capsules by mouth twice daily for 180 days. 360 capsule 1 04/04/2023 10/17/2023 Discontinued Start: 05-28-2021 End: 05-08-2023 gabapentin (NEURONTIN) 300 m g capsule Indications: Cervicalgia , Fibromyalgia , Chronic low back pain, unspecified back pain laterality, unspecified whether sciatica present One capsule in AM. Two capsules at bedtime. 90 capsule 5 12/03/2021 06/13/2022 Discontinued Start: 05-08-2020 End: 11-12-2020 gabapentin (NEURONTIN) 300 m g capsule Indications: Cervicalgia , Fibromyalgia , Chronic low back pain, unspecified back pain laterality, unspecified whether sciatica present One capsule in AM. Two capsules at bedtime. 90 capsule 5 05/08/2020 11/12/2020 Discontinued Comment on above: One capsule in AM. T wo capsules at bedtime. Take 2 capsules by m outh twice daily for 180 days. Take 2 capsules by m outh two times a day for 180 days. HYDROmorphone hydrochloride 2 mg oral tablet (1 source) Opioid Agonist Start: 09-09-19 take 1 tablet by mouth every six hours as needed for pain Hydromorphone 2 MG tablet Active 2 mg PO EVERY 6 HOURS as needed for Pain 60 September 09, 2014 1:00am levothyroxine sodium 0.088 mg oral tablet (20 sources) l-Thyroxine Start: 09-06-19 take 1 tablet by mouth once daily before breakfast levothyroxine 88 mcg (0.088 mg) oral tablet Take 1 tablet by mouth daily before breakfast. Start Date: 09/06/22 Status: Ordered Start: 11-17-2021 End: 11-20-2024 take 1 tablet by mouth once daily before breakfast levothyroxine (SYNTHROID) 88 mcg tablet Indications: Hypothyroidism, unspecified type Take 1 tablet by mouth daily before breakfast. 90 tablet 1 11/20/2024 Active Start: 05-28-2014 End: 10-23-2020 take 1 tablet by mouth once daily before breakfast levothyroxine (SYNTHROID) 88 mcg tablet Take 1 tablet by mouth daily before breakfast. 90 tablet 3 10/09/2019 10/23/2020 Discontinued Comment on above: Take 1 tablet by mayelin th daily before breakfast. losartan potassium 25 mg oral tablet (19 sources) Angiotensin 2 Receptor Diana Start: 2023 End: 2023 take 1 tablet by mouth once daily losartan (COZAAR) 25 mg tablet Take 1 tablet by mouth once daily. 90 tablet 3 05/21/2024 Active methylPREDNISolone 4 mg oral tablet (1 source) Corticosteroid Start: 2014 Methylprednisolone 4 MG tablet Active 4 mg PO DIRECTED 1 September 09, 2014 1:00am miglitol 25 mg oral tablet (20 sources) alpha-Glucosidase Inhibitor Start: 2022 End: 2024 take 1 tablet by mouth every eight hours as needed miglitol (GLYSET) 25 mg tablet Take 1 tablet by mouth three times a day as needed (with meals as directed.). 90 tablet 11/01/2024 Active Comment on above: Take 1 tablet by mayelin three times daily as needed (with meals as directed.). Multivitamin With Folic Acid (Thera) 1 TABLET tablet (1 source) Start: 2013 take 1 tablet by mouth once daily Multivitamin With Folic Acid (Thera) 1 TABLET tablet Active 1 {tbl} PO DAILY May 28, 2014 12:00am nirmatrelvir tablet 300 mg (150 mg x 2) and ritonavir tablet 100 mg in a dose pack (PAXLOVID) (1 source) Start: 2022 End: 2022 nirmatrelvir tablet 300 mg (150 mg x 2) and ritonavir tablet 100 mg in a dose pack (PAXLOVID) Indications: COVID Administer TWO pink nirmatrelvir 150 mg tablets and ONE white ritonavir 100 mg tablet for a total of three tablets twice daily. 30 tablet 0 05/08/2023 05/13/2023 Active Comment on above: Administer TWO pink nirmatrelvir 150 mg tablets and ONE white ritonavir 100 mg tablet for a total of three tablets twice daily. nortriptyline 50 mg oral capsule (20 sources) Tricyclic Antidepressant Start: 2021 End: 2022 take 1 capsule by mouth once daily at bedtime nortriptyline (PAMELOR) 50 mg capsule Indications: Fibromyalgia , Cervicalgia , Chronic low back pain, unspecified back pain laterality, unspecified whether sciatica present , Insomnia due to medical condition Take 1 capsule by mouth daily at bedtime. 90 capsule 1 10/24/2022 11/23/2022 Discontinued (Clinical Decision) Start: 03-26-2020 End: 09-23-2020 take 1 capsule by mouth once daily at bedtime nortriptyline (PAMELOR) 50 mg capsule Indications: Cervicalgia , Fibromyalgia , Chronic low back pain, unspecified back pain laterality, unspecified whether sciatica present , Insomnia due to medical condition Take 1 capsule by mouth daily at bedtime. 30 capsule 5 03/26/2020 09/23/2020 Discontinued Comment on above: Take 1 capsule by mo [facility] daily at bedtime. nystatin 100 unt/mg / triamcinolone acetonide 0.001 mg/mg topical ointment (20 sources) Polyene Antifungal, Corticosteroid Start: 10-07-19 End: 07-26-20 nystatin-triamcino lone (MYCOLOG) ointment Indications: Intertrigo Apply sparingly to skin area with rash twice daily as needed. 60 g 1 10/24/2022 Active Comment on above: Apply sparingly to s kin area with rash twice daily as needed. omeprazole 40 mg delayed release oral capsule (20 sources) Proton Pump Inhibitor Start: 08-09-20 End: 11-21-19 take 1 capsule by mouth once daily for obesity omeprazole (PRILOSEC) 40 mg capsule Indications: Gastric bypass status for obesity Take 1 capsule by mouth once daily. 90 capsule 1 11/20/2024 Active Start: 11-03-2021 End: 09-29-2022 take 1 capsule by mouth once daily omeprazole (PRILOSEC) 40 mg capsule Take 1 capsule by mouth once daily. 30 capsule 11 11/03/2021 09/29/2022 Discontinued Start: 05-22-2020 End: 11-12-2020 take 1 capsule by mouth once daily omeprazole (PRILOSEC) 40 mg capsule Take 1 capsule by mouth once daily. 30 capsule 2 07/09/2020 11/12/2020 Discontinued Comment on above: Take 1 capsule by [facility] once daily. promethazine hydrochloride 25 mg oral tablet (1 source) Phenothiazine Start: 09-09-19 15 take 1 tablet by mouth every four hours as needed for nausea Promethazine 25 MG tablet Active 25 mg PO EVERY 4 HOURS NEEDED as needed for Nausea 10 September 09, 2014 1:00am tiZANidine 4 mg oral tablet (20 sources) Central alpha-2 Adrenergic Agonist Start: 04-15-20 take 2 tablets by mouth every eight hours as needed for muscle spasms tiZANidine (ZANAFLEX) 4 mg tablet Indications: Fibromyalgia , Cervicalgia Take 2 tablets by mouth every 8 hours as needed (muscle spasms). 180 tablet 2 04/15/2025 Active Start: 02-12-2024 End: 04-14-2025 take 2 tablets by mouth every eight hours as needed for muscle spasms tiZANidine (ZANAFLEX) 4 mg tablet Indications: Fibromyalgia , Cervicalgia Take 2 tablets by mouth every 8 hours as needed (muscle spasms). 180 tablet 1 02/14/2025 04/14/2025 Discontinued Start: 12-06-2023 End: 02-12-2024 take 1 tablet by mouth every six hours as needed for muscle spasms tiZANidine (ZANAFLEX) 4 mg tablet Indications: Fibromyalgia , Cervicalgia , Chronic low back pain, unspecified back pain laterality, unspecified whether sciatica present Take 1 tablet by mouth every 6 hours as needed (muscle spasms). Patient should start on December 06, 2023. 120 tablet 5 12/06/2023 02/12/2024 Discontinued Start: 12-06-2023 take 1 tablet by mayelin th every six hours as needed for muscle spasms tiZANidine (ZANAFLEX) 4 mg tablet Indications: Fibromyalgia , Cervicalgia , Chronic low back pain, unspecified back pain laterality, unspecified whether sciatica present Take 1 tablet by mouth every 6 hours as needed (muscle spasms). Patient should start on December 06, 2023. 120 tablet 5 12/06/2023 Active Start: 12-06-2023 take 1 tablet by mayelin th every six hours as needed for muscle spasms tiZANidine (ZANAFLEX) 4 mg tablet Indications: Fibromyalgia , Cervicalgia , Chronic low back pain, unspecified back pain laterality, unspecified whether sciatica present Take 1 tablet by mouth every 6 hours as needed (muscle spasms). Patient should start on December 06, 2023. 120 tablet 5 12/06/2023 Active Start: 12-06-2023 take 1 tablet by mayelin th every six hours as needed for muscle spasms tiZANidine (ZANAFLEX) 4 mg tablet Indications: Fibromyalgia , Cervicalgia , Chronic low back pain, unspecified back pain laterality, unspecified whether sciatica present Take 1 tablet by mouth every 6 hours as needed (muscle spasms). Patient should start on December 06, 2023. 120 tablet 5 12/06/2023 Active Start: 09-11-2023 End: 12-05-2023 take 1 tablet by mouth every six hours as needed for muscle spasms tiZANidine (ZANAFLEX) 4 mg tablet Indications: Cervicalgia , Chronic low back pain, unspecified back pain laterality, unspecified whether sciatica present , Fibromyalgia Take 1 tablet by mouth every 6 hours as needed (muscle spasms). Patient should start on November 05, 2023. 120 tablet 0 11/05/2023 11/06/2023 Discontinued Start: 04-27-2023 take 1 tablet by mayelin th every six hours as needed for muscle spasms tiZANidine (ZANAFLEX) 4 mg tablet Indications: Cervicalgia , Chronic low back pain, unspecified back pain laterality, unspecified whether sciatica present , Fibromyalgia Take 1 tablet by mouth every 6 hours as needed (muscle spasms). 120 tablet 5 04/27/2023 Active Start: 06-13-2022 End: 04-27-2023 take 1 tablet by mouth every eight hours as needed for muscle spasms tiZANidine (ZANAFLEX) 4 mg tablet Indications: Fibromyalgia Take 1 tablet by mouth every 8 hours as needed (muscle spasms). 270 tablet 1 04/04/2023 04/27/2023 Discontinued Start: 10-18-2021 End: 06-13-2022 take 1 tablet by mouth twice daily as needed for muscle spasms tiZANidine (ZANAFLEX) 4 mg tablet Indications: Fibromyalgia Take 1 tablet by mouth twice daily as needed (muscle spasms). 180 tablet 1 04/11/2022 06/13/2022 Discontinued Comment on above: Take 1 tablet by mayelin th twice daily as needed (muscle spasms). Take 1 tablet by mayelin th every 8 hours as needed (muscle spasms). Take 1 tablet by mayelin th every 6 hours as needed (muscle spasms). Take 1 tablet by mayelin th every 6 hours as needed (muscle spasms). Patient should start on November 05, 2023. Take 1 tablet by mayelin th every 6 hours as needed (muscle spasms). Patient should start on December 06, 2023. triamcinolone acetonide 0.001 mg/mg topical ointment (20 sources) Corticosteroid Start: 06-22-2023 triamcinolone acetonide (KENALOG) 0.1 % ointment Indications: Impetiginization of other dermatoses Apply to affected area two times a day. 454 g 06/22/2023 Active Comment on above: Apply to affected ar ea two times a day. vitamin b12 1 mg/ml injectable solution (20 sources) Vitamin B12 Start: 04-04-2023 End: 11-20-2024 cyanocobalamin 1,000 mcg/mL Indications: Vitamin B12 deficiency Inject once a week on Tuesdays for 3 weeks, then once a month 4 mL 3 11/20/2024 Active Start: 04-04-2023 End: 04-04-2023 cyanocobalamin 1,000 mcg inj ection Start: 04-04-2023 End: 04-04-2023 cyanocobalamin 1,000 mcg inj ection Comment on above: Inject once a week o n Tuesdays for 3 weeks, then once a month Zinc Oxide (20 sources) ZINC OXIDE TOPIC AL Apply to affected area. Active ZINC OXIDE TOPIC AL Apply to affected area. 0 Active Completed/Discontinued Medications Medication Drug Class(es) Dates Sig (Normalized) Sig (Original) [id number] 200 actuat albuterol 0.09 mg/actuat metered dose inhaler (2 sources) beta2-Adrenergic Agonist Start: 0 End: 2 take 2 puff(s) by inhalation every six hours as needed albuterol HFA (PROVENTIL HFA, VENTOLIN HFA) 90 mcg/actuation inhaler Inhale 2 Puffs as instructed every 6 hours as needed. 18 g 07/09/2020 10/27/2021 Discontinued bisacodyl 5 mg delayed release oral tablet (1 source) Stimulant Laxative Start: 0 End: 0 Bisacodyl (DULCOLAX) 5 mg tab Use as directed for Miralax / Gatorade Bowel Prep Kit 4 tablet 06/23/2020 07/09/2020 Discontinued celecoxib 100 mg oral capsule (3 sources) Nonsteroidal Anti-inflammatory Drug Start: 0 End: 1 take 1 capsule by mouth twice daily celecoxib (CELEBREX) 100 mg capsule Indications: Cervicalgia , Fibromyalgia , Chronic low back pain, unspecified back pain laterality, unspecified whether sciatica present Take 1 capsule by mouth twice daily. 60 capsule 5 03/26/2020 09/23/2020 Discontinued cetirizine hydrochloride 10 mg oral tablet (2 sources) Histamine-1 Receptor Antagonist Start: 3 End: 3 take 1 tablet by mouth once daily cetirizine (ZYRTEC) 10 mg tablet Indications: Impetiginization of other dermatoses Take 1 tablet by mouth once daily. 30 tablet 0 06/22/2023 08/03/2023 Discontinued (Discontinued by Patient) Comment on above: Take 1 tablet by mayelin once daily. cyclobenzaprine hydrochloride 10 mg oral tablet (3 sources) Muscle Relaxant Start: 0 End: 1 take 1 tablet by mouth twice daily as needed cyclobenzaprine (FLEXERIL) 10 mg tablet Indications: Cervicalgia , Fibromyalgia Take 1 tablet by mouth twice daily as needed. 60 tablet 5 07/09/2020 02/26/2021 Discontinued dicyclomine hydrochloride 10 mg oral capsule (3 sources) Anticholinergic Start: 0 End: 1 take 1 capsule by mouth at bedtime dicyclomine (BENTYL) 10 mg capsule Indications: Chronic RUQ pain Take 1 capsule by mouth before meals and at bedtime. 120 capsule 1 06/23/2020 01/21/2021 Discontinued (Course of therapy completed) 0.5 ml dulaglutide 3 mg/ml auto-injector (20 sources) GLP-1 Receptor Agonist Start: 4 End: 4 dulaglutide (TRULICITY) 1.5 mg/0.5 mL pen injector Inject 1.5 mg subcutaneously one time a week. Take with Trulicity 3 mg to= 4.5 mg weekly 2 mL 5 11/22/2023 01/08/2024 Discontinued Start: 09-06-2022 inject 3 mg by subcu taneous injection every week Trulicity Pen 3 mg/0.5 mL subcutaneous solution Inject 3 mg subcutaneously one time a week. Start Date: 09/06/22 Status: Ordered Start: 09-08-2021 End: 09-02-2022 inject 1.5 mg by subcutaneous injection every week dulaglutide (TRULICITY) 1.5 mg/0.5 mL pen injector Indications: Diabetes mellitus type 2 in obese Inject 1.5 mg subcutaneously one time a week. 4 Each 5 09/08/2021 09/02/2022 Discontinued (Dosage adjustment) Comment on above: Inject 1.5 mg subcut aneously one time a week. Inject 1.5 mg subcut aneously one time a week. Take with Trulicity 3 mg to= 4.5 mg weekly dulaglutide (TRULICITY) 3 mg/0.5 mL pen injector (9 sources) Start: 023 inject 3 mg by subcutaneous injection every week dulaglutide (TRULICITY) 3 mg/0.5 mL pen injector Inject 3 mg subcutaneously one time a week. 2 mL 5 10/24/2022 Active Start: 09-02-2022 End: 10-24-2022 inject 3 mg by subcutaneous injection every week dulaglutide (TRULICITY) 3 mg/0.5 mL pen injector Inject 3 mg subcutaneously one time a week. 2 mL 2 09/02/2022 10/24/2022 Discontinued Start: 09-02-2022 inject 3 mg by subcu taneous injection every week dulaglutide (TRULICITY) 3 mg/0.5 mL pen injector Inject 3 mg subcutaneously one time a week. 2 mL 2 09/02/2022 Active Start: 06-13-2022 End: 09-01-2022 inject 3 mg by subcutaneous injection every week dulaglutide (TRULICITY) 3 mg/0.5 mL pen injector Inject 3 mg subcutaneously one time a week. 2 mL 2 06/13/2022 09/01/2022 Discontinued Start: 06-13-2022 inject 3 mg by subcu taneous injection every week dulaglutide (TRULICITY) 3 mg/0.5 mL pen injector Inject 3 mg subcutaneously one time a week. 2 mL 2 06/13/2022 Active Comment on above: Inject 3 mg subcutan eously one time a week. dulaglutide (TRULICITY) 3 mg/0.5 mL pen injector (15 sources) Start: 01-08-2024 End: 04-02-2024 dulaglutide (TRULICITY) 3 mg/0.5 mL pen injector Inject 3 mg subcutaneously one time a week. Take with Trulicity 1.5 mg to= 4.5 mg weekly 2 mL 5 01/08/2024 04/02/2024 Discontinued (Duplicate Entry) Start: 01-08-2024 dulaglutide (T RULICITY) 3 mg/0.5 mL pen injector Inject 3 mg subcutaneously one time a week. Take with Trulicity 1.5 mg to= 4.5 mg weekly 2 mL 5 01/08/2024 Active Start: 11-22-2023 End: 01-08-2024 dulaglutide (TRULICITY) 3 mg /0.5 mL pen injector Inject 3 mg subcutaneously one time a week. Take with Trulicity 1.5 mg to= 4.5 mg weekly 2 mL 5 11/22/2023 01/08/2024 Discontinued Start: 11-22-2023 dulaglutide (T RULICITY) 3 mg/0.5 mL pen injector Inject 3 mg subcutaneously one time a week. Take with Trulicity 1.5 mg to= 4.5 mg weekly 2 mL 5 11/22/2023 Active Comment on above: Inject 3 mg subcutan eously one time a week. Take with Trulicity 1.5 mg to= 4.5 mg weekly ferrous sulfate 325 mg oral tablet (1 source) Start: 05-22-20 End: 07-09-20 take 1 tablet by mouth every other day ferrous sulfate 325 mg (65 mg iron) tablet Take 1 tablet by mouth every other day. 15 tablet 2 05/22/2020 07/09/2020 Discontinued fexofenadine hydrochloride 180 mg oral tablet (1 source) Histamine-1 Receptor Antagonist Start: 12-06-19 End: 07-09-20 take 1 tablet by mouth once daily fexofenadine (DEIRDRE) 180 mg tablet Indications: Urticaria Take 1 tablet by mouth once daily. 30 tablet 0 12/05/2012 07/09/2020 Discontinued Gatorade Sports Drink (1 source) Start: 06-23-20 End: 07-09-20 Gatorade Sports Drink Use as directed for Miralax / Gatorade Bowel Prep Kit 64 oz 06/23/2020 07/09/2020 Discontinued Inhalational Spacing Device (1 source) Start: 07-09-20 End: 07-09-20 Inhalational Spacing Device 1 Device one time only for 1 dose. 1 Each 07/09/2020 07/09/2020 meloxicam 15 mg oral tablet (20 sources) Nonsteroidal Anti-inflammatory Drug Start: 04-04-20 23 End: 03-01-20 24 take 1 tablet by mouth once daily meloxicam (MOBIC) 15 mg tablet Take 1 tablet by mouth once daily. 30 tablet 1 11/06/2023 01/01/2024 Discontinued End: 04-04-2023 take 1 tablet by mouth once daily meloxicam (MOBIC) 7.5 mg tablet Take 7.5 mg by mouth once daily. 0 04/04/2023 Discontinued Comment on above: Take 1 tablet by mayelin th once daily. Take 7.5 mg by mouth once daily. metFORMIN hydrochloride 500 mg oral tablet (20 sources) Biguanide Start: 07-02-20 End: 04-27-20 take 2 tablets by mouth twice daily at mealtime metFORMIN (GLUCOPHAGE) 500 mg tablet Indications: Diabetes mellitus type 2 in obese Take 2 tablets by mouth twice daily with meals. . 120 tablet 5 12/03/2021 06/13/2022 Discontinued Comment on above: Take 2 tablets by mo [facility] twice daily with meals. . naproxen 500 mg oral tablet (7 sources) Nonsteroidal Anti-inflammatory Drug Start: 05-15-20 End: 08-03-20 take 1 tablet by mouth twice daily as needed for pain naproxen (NAPROSYN) 500 mg tablet Indications: Olecranon bursitis of right elbow Take 1 tablet by mouth twice daily as needed (for pain/inflammation). Take with food. 15 tablet 0 05/15/2023 08/03/2023 Discontinued Comment on above: Take 1 tablet by mayelin twice daily as needed (for pain/inflammation). Take with food. oxyCODONE hydrochloride 5 mg oral tablet (3 sources) Opioid Agonist Start: 07-04-20 End: 07-30-20 take 1 tablet by mouth every six hours as needed for pain oxyCODONE IR (ROXICODONE) 5 mg immediate release tablet Indications: Cervicalgia , Fibromyalgia , Chronic low back pain, unspecified back pain laterality, unspecified whether sciatica present Take 1 tablet by mouth every 6 hours as needed for Pain (Not more than 4 tablets per day.) for up to 30 days. Do not start before July 04, 2020. 120 tablet 07/04/2020 07/30/2020 Discontinued Start: 06-04-2020 End: 06-26-2020 take 1 tablet by mouth every six hours as needed for pain, then take 4 tablets by mouth once daily as needed for pain oxyCODONE IR (ROXICODONE) 5 mg immediate release tablet Indications: Cervicalgia , Fibromyalgia , Chronic low back pain, unspecified back pain laterality, unspecified whether sciatica present Take 1 tablet by mouth every 6 hours as needed for Pain (Not more than 4 tablets per day.) for up to 30 days. 120 tablet 06/04/2020 06/26/2020 Discontinued pediatric multivitamins with iron (FLINTSTONES PLUS IRON) chewable tablet (1 source) Start: 01-25-2012 End: 07-09-2020 pediatric multivitamins with iron (FLINTSTONES PLUS IRON) chewable tablet 1 tablet by OROGASTRIC route once daily. 0 01/25/2012 07/09/2020 Discontinued polyethylene glycol 3350 19318 mg powder for oral solution (1 source) Osmotic Laxative Start: 06-23-2020 End: 07-09-2020 polyethylene glycol 3350 (MIRALAX, GLYCOLAX) 17 gram/dose powder Use as directed for Miralax / Gatorade Bowel Prep Kit 238 g 06/23/2020 07/09/2020 Discontinued predniSONE 20 mg oral tablet (2 sources) Start: 06-22-2023 End: 08-03-2023 predniSONE (DELTASONE) 20 mg tablet Indications: Impetiginization of other dermatoses Take 40 mg (2 tabs) daily x5 days, then 20 mg (1 tab) daily x5 days. 15 tablet 0 06/22/2023 08/03/2023 Discontinued (Course of therapy completed) Comment on above: Take 40 mg (2 tabs) daily x5 days, then 20 mg (1 tab) daily x5 days. TRULICITY 3 mg/0.5 mL pen injector (5 sources) Start: 11-23-2022 End: 04-04-2023 inject 1 mL by subcutaneous injection every week TRULICITY 3 mg/0.5 mL pen injector INJECT THE CONTENTS OF 1 PEN UNDER THE SKIN ONCE A WEEK. 2 mL 2 11/23/2022 04/04/2023 Discontinued (Dosage adjustment) Start: 11-23-2022 inject 1 mL by subcu taneous injection every week TRULICITY 3 mg/0.5 mL pen injector INJECT THE CONTENTS OF 1 PEN UNDER THE SKIN ONCE A WEEK. 2 mL 2 11/23/2022 Active Comment on above: INJECT THE CONTENTS OF 1 PEN UNDER THE SKIN ONCE A WEEK. Problems Active Problems Problem Classification Problem Date Documented Da te Episodic/Chronic Aortic; peripheral; and visceral artery aneurysms (20 sources) Ascending aorta dilatation; Translations: [Thoracic aortic ectasia] Onset: 08-19-2023 08-19-2023 Chronic Complications of surgical procedures or medical care (20 sources) Menopausal flushing; Translations: [Symptomatic postprocedural ovarian failure] Onset: 11-17-2010 Resolved: 12-02-2011 01-25-2012 Chronic Diabetes mellitus with complications (20 sources) Type 2 diabetes mellitus in obese; Translations: [Type 2 diabetes mellitus with other specified complication] Onset: 07-20-2011 Chronic Disorders of lipid metabolism (20 sources) Hyperlipidemia; Translations: [Hyperlipidemia, unspecified] Onset: 07-20-2011 Chronic Essential hypertension (20 sources) Essential hypertension; Translations: [Essential (primary) hypertension] Onset: 12-17-2007 11-06-2023 Chronic Genitourinary symptoms and ill-defined conditions (20 sources) Female stress incontinence; Translations: [Stress incontinence (female) (male)] Onset: 12-02-2011 12-02-2011 Chronic Immunizations and screening for infectious disease (10 sources) Patient encounter status; Translations: [Encounter for immunization] Episodic Nutritional deficiencies (20 sources) Vitamin D deficiency; Translations: [Vitamin D deficiency, unspecified] Onset: 02-17-2011 02-17-2011 Chronic Other and unspecified benign neoplasm (3 sources) Lipoma of back; Translations: [Benign lipomatous neoplasm of skin and subcutaneous tissue of trunk] Episodic Other and unspecified benign neoplasm (1 source) Lipoma of trunk; Translations: [Benign lipomatous neoplasm of skin and subcutaneous tissue of trunk] Episodic Other circulatory disease (2 sources) Orthostatic hypotension; Translations: [Orthostatic hypotension] 04-10-2023 Episodic Other connective tissue disease (20 sources) Fibromyalgia; Translations: [Fibromyalgia] Onset: 06-03-2014 Episodic Other connective tissue disease (2 sources) Pain in finger of right hand; Translations: [Pain in right finger(s)] Episodic Other connective tissue disease (2 sources) Pain in hallux; Translations: [Pain in right toe(s)] 02-12-2024 Episodic Other gastrointestinal disorders (20 sources) History of bypass of stomach; Translations: [Bariatric surgery status] 08-24-2011 Episodic Other injuries and conditions due to external causes (2 sources) Injury of toe of right foot; Translations: [Unspecified injury of right foot, initial encounter] 02-12-2024 Episodic Other liver diseases (20 sources) Steatosis of liver; Translations: [Fatty (change of) liver, not elsewhere classified] Onset: 07-20-2011 07-20-2011 Chronic Other liver diseases (1 source) Alkaline phosphatase raised; Translations: [Abnormal levels of other serum enzymes] 11-06-2023 Episodic Other lower respiratory disease (1 source) Cough; Translations: [Acute cough] 11-01-2024 Episodic Other nervous system disorders (1 source) Other chronic pain; Translations: [Chronic neck pain] Onset: 05-12-2025 Chronic Other nervous system disorders (2 sources) Abnormal sensation; Translations: [Other disturbances of skin sensation] Episodic Other nervous system disorders (2 sources) Paresthesia of upper limb; Translations: [Anesthesia of skin] 12-06-2023 Episodic Other nervous system disorders (2 sources) Numbness of upper limb; Translations: [Anesthesia of skin] 01-08-2024 Episodic Other nutritional; endocrine; and metabolic disorders (12 sources) Obese class II; Translations: [Obesity, unspecified] Onset: 05-28-2021 05-28-2021 Chronic Other nutritional; endocrine; and metabolic disorders (20 sources) Obese class I; Translations: [Obesity, unspecified] Onset: 06-13-2022 Chronic Other nutritional; endocrine; and metabolic disorders (1 source) Obesity, unspecified; Translations: [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)] Onset: 04-23-2024 Chronic Other screening for suspected conditions (not mental disorders or infectious disease) (1 source) Encounter for screening mammogram for malignant neoplasm of breast; Translations: [Encounter for screening mammogram for breast cancer] Onset: 05-12-2025 Episodic Other skin disorders (2 sources) Mass of subcutaneous tissue; Translations: [Localized swelling, mass and lump, unspecified] Episodic Other skin disorders (1 source) Eruption; Translations: [Rash and other nonspecific skin eruption] 06-20-2023 Episodic Other upper respiratory disease (1 source) Pain of nose; Translations: [Other specified disorders of nose and nasal sinuses] 11-06-2023 Episodic Other upper respiratory infections (1 source) Acute maxillary sinusitis; Translations: [Acute maxillary sinusitis, unspecified] 11-01-2024 Episodic Pneumonia (except that caused by tuberculosis or sexually transmitted disease) (2 sources) Pneumonia; Translations: [Pneumonia, unspecified organism] 06-29-2020 Episodic Residual codes; unclassified (20 sources) Insomnia co-occurrent and due to medical condition; Translations: [Insomnia due to medical condition] Onset: 08-10-2018 08-10-2018 Chronic Residual codes; unclassified (2 sources) Treatment not available; Translations: [Procedure and treatment not carried out for other reasons] 05-05-2023 Episodic Skin and subcutaneous tissue infections (3 sources) Cellulitis; Translations: [Cellulitis, unspecified] Onset: 05-12-2025 06-20-2023 Episodic Spondylosis; intervertebral disc disorders; other back problems (20 sources) Neck pain; Translations: [Cervicalgia] Onset: 12-22-2008 Resolved: 06-12-2012 Episodic Superficial injury; contusion (1 source) Contusion of face; Translations: [Contusion of other part of head, initial encounter] 11-20-2024 Episodic Thyroid disorders (20 sources) Hypothyroidism; Translations: [Hypothyroidism, unspecified] Onset: 06-10-2008 Resolved: 11-17-2010 05-01-2017 Chronic Unclassified (1 source) Low back pain, unspecified; Translations: [Low back pain, unspecified] Onset: 03-20-2025 Past or Other Problems Problem Classification Problem Date Documented Da te Episodic/Chronic Administrative/social admission (20 sources) Adopted; Translations: [Encounter for adoption services] Onset: 11-17-2010 Resolved: 11-09-2018 11-09-2018 Episodic Biliary tract disease (20 sources) Biliary calculus; Translations: [Calculus of gallbladder without cholecystitis without obstruction] Onset: 07-20-2011 Resolved: 11-09-2018 11-09-2018 Episodic Cardiac dysrhythmias (20 sources) Multiple premature ventricular complexes; Translations: [Ventricular premature depolarization] Onset: 07-20-2011 Resolved: 04-23-2015 04-23-2015 Chronic Cardiac dysrhythmias (20 sources) Palpitations; Translations: [Palpitations] Onset: 08-03-2023 Resolved: 11-20-2024 Episodic Fracture of upper limb (20 sources) Fracture of base of fifth metacarpal; Translations: [Displaced fracture of base of fifth metacarpal bone, right hand, subsequent encounter for fracture with routine healing] Onset: 02-11-2016 Resolved: 12-08-2016 12-08-2016 Episodic Gastrointestinal hemorrhage (20 sources) Rectal hemorrhage; Translations: [Hemorrhage of anus and rectum] Onset: 11-17-2010 Resolved: 12-02-2011 12-02-2011 Episodic Headache; including migraine (20 sources) Refractory migraine without aura; Translations: [Migraine without aura, intractable, without status migrainosus] Onset: 09-02-2008 Resolved: 01-29-2010 01-29-2010 Chronic Headache; including migraine (20 sources) Generalized headache; Translations: [Generalized headaches] Onset: 01-29-2010 Resolved: 12-02-2011 12-02-2011 Episodic Nonmalignant breast conditions (20 sources) Pain of breast; Translations: [Mastodynia] Onset: 11-17-2010 Resolved: 12-02-2011 12-02-2011 Episodic Nutritional deficiencies (11 sources) Cobalamin deficiency; Translations: [Deficiency of other specified B group vitamins] Onset: 11-20-2024 04-04-2023 Episodic Other circulatory disease (20 sources) Elevated blood pressure; Translations: [Elevated blood-pressure reading, without diagnosis of hypertension] Onset: 08-03-2023 06-20-2023 Episodic Other connective tissue disease (20 sources) Muscle weakness; Translations: [Muscle weakness (generalized)] Onset: 05-28-2021 Resolved: 11-20-2024 05-28-2021 Episodic Other connective tissue disease (20 sources) Recurrent falls ; Translations: [Repeated falls] Onset: 05-28-2021 05-28-2021 Episodic Other connective tissue disease (20 sources) Intersection syndrome; Translations: [Other synovitis and tenosynovitis, unspecified forearm] Onset: 12-30-2013 Resolved: 04-23-2015 04-23-2015 Episodic Other connective tissue disease (20 sources) Swelling of left upper limb; Translations: [Other specified soft tissue disorders] Onset: 12-30-2013 Resolved: 04-23-2015 04-23-2015 Episodic Other connective tissue disease (20 sources) Pain in left arm; Translations: [Pain in left arm] Onset: 12-30-2013 Resolved: 04-23-2015 04-23-2015 Episodic Other connective tissue disease (1 source) Fibromyalgia; Translations: [Fibromyalgia] Onset: 06-03-2014 Episodic Other gastrointestinal disorders (1 source) Bariatric surgery status; Translations: [Gastric bypass status for obesity] Onset: 08-24-2011 Episodic Other inflammatory condition of skin (20 sources) Intertrigo; Translations: [Erythema intertrigo] Onset: 10-24-2022 Episodic Other non-traumatic joint disorders (20 sources) Arthralgia of the pelvic region and thigh; Translations: [Pain in unspecified hip] Onset: 03-14-2008 Resolved: 04-23-2015 04-23-2015 Episodic Other non-traumatic joint disorders (20 sources) Pain in unspecified knee; Translations: [Pain in joint, lower leg] Onset: 12-06-2010 Resolved: 06-12-2012 06-12-2012 Episodic Other nutritional; endocrine; and metabolic disorders (20 sources) Obesity; Translations: [Obesity, unspecified] Onset: 12-17-2007 Resolved: 07-25-2012 07-25-2012 Chronic Other nutritional; endocrine; and metabolic disorders (20 sources) Metabolic syndrome X; Translations: [Dysmetabolic syndrome X] Onset: 03-14-2008 Resolved: 12-03-2021 12-03-2021 Chronic Other nutritional; endocrine; and metabolic disorders (20 sources) Morbid obesity; Translations: [Morbid (severe) obesity due to excess calories] Onset: 02-15-2011 Resolved: 07-25-2012 07-25-2012 Chronic Other nutritional; endocrine; and metabolic disorders (20 sources) Body mass index 40+ - severely obese; Translations: [Morbid (severe) obesity due to excess calories] Onset: 09-23-2020 Resolved: 05-28-2021 05-28-2021 Chronic Other skin disorders (20 sources) Acne; Translations: [Acne, unspecified] Onset: 01-29-2010 Resolved: 12-02-2011 12-02-2011 Episodic Residual codes; unclassified (20 sources) Edema; Translations: [Edema, unspecified] Onset: 12-17-2007 Resolved: 12-22-2008 12-22-2008 Episodic Spondylosis; intervertebral disc disorders; other back problems (20 sources) Cervical spondylosis without myelopathy; Translations: [Spondylosis without myelopathy or radiculopathy, cervical region] Onset: 05-19-2015 Resolved: 02-12-2018 02-12-2018 Chronic Sprains and strains (20 sources) Sprain of left shoulder; Translations: [Unspecified sprain of left shoulder joint, initial encounter] Onset: 12-06-2010 Resolved: 12-02-2011 12-02-2011 Episodic Syncope (20 sources) Syncope; Translations: [Syncope and collapse] Onset: 08-03-2023 Episodic Viral infection (20 sources) Disease caused by 2019-nCoV; Translations: [COVID-19] Onset: 06-12-2020 Resolved: 05-28-2021 05-08-2023 Episodic Results Test Name Value Interpretation Reference Range Facility Cerv Spine 4 or 5 Viewson Cerv Spine 4 or [address] [facility] Imaging Services [address] [place] [address] [id number] Cerv Spine 4 or 5 Views MR#: [id number] Acct: [id number] Name: CHICA SHAH Rep #: [id number] : 1965 F 60 From: Alexander Eagle MD PCP: Dr. Jabari Murillo MD Status: REG CLI Study: Cerv Spine 4 or 5 Views Date of Exam: 06/30/25 Exam# [id number] Ordering Dr: Didi Chung PROCEDURE: CERV SPINE 4 OR 5 VIEWS 06/30/2025 REASON FOR EXAM: NECK PAIN TECHNIQUE: Procedure Code: RADSP Modality: DX Procedure: CERV SPINE 4 OR 5 VIEWS COMPARISON: 05/15/2025. 09/11/2024. FINDINGS: No evidence of acute fracture or dislocation. Severe degenerative changes of the visualized spine. Vertebral body heights are maintained. Normal alignment. RAD/Cerv Spine 4 or 5 Views IMPRESSION: Severe spondylosis. Disclaimer: Reading Location: [id number] CC: ALEX Dee; Dr. Jabari Murillo MD Shift Engineer: Signed Normal [facility] 06-24-2025 [facility] Telephone (INTMWS) CHICA SHAH ([id number]) 1965 F T Date Time Provider Department 06/24/25 JABARI MURILLO INTMWS During your visit today, we recorded the following information about you: Jaime HarrisViviana 06/24/2025 8:56 AM Signed Chica is calling Jabari Murillo MD today with concern regarding Medication Problem (tizanidine) Patient called yesterday for a refill as she is completely out. A refill to begin 07-15-25 was sent, but patient needs it now. When speaking to her she relayed she has been using more than prescribed. Please call patient to discuss. Patient has been identified by name and birthdate. Duration of symptoms: N/A Person calling: self Call patient at: at home [phone] (home) [phone] (cell) Was an appointment scheduled: No Closing statement: Viviana Wilson [facility] Azalia Haas LPN 06/24/2025 10:17 AM Signed Chica is taking 2 tablets every 4-5 hours for back pain, it's the only thing that helps with the back pain, I did not sleep at all last night. Patient sees Dr. Negro, he is recommending back surgery. Amparo Hui LPN, LPN 06/24/2025 4:02 PM Signed Patient calling back she is out of medication. Aware PCP is out this afternoon. Patient said she it is the only thing getting her through with her back pain until she can have back surgery. Jabari Murillo MD 06/25/2025 1:13 PM Signed Early refill not appropriate. Taking more than prescribed, which I recall was discussed in the past. Consider having her pain management take over this medication. . Lauryn Alvarenga MA 06/25/2025 1:20 PM Signed Patient was notified Lauryn Alvarenga MA Allergies As of Date: 06/24/2025 Noted Allergy Reaction CELEBREX (CELECOXIB) 12/02/2020 2 - Rash LATEX 01/29/2010 5 - Intolerance Comments: burning feeling NSAIDS (NON-STEROIDAL ANTI-INFLAM*12/31/19 14 14 - Other: See Comments Comments: Avoid due to Gastric Bypass Date Reviewed: 05/12/2025 Reviewed by: Cecilia Whitlock APRN.BOBTAIL DRIVER - Fully Assessed Reason for Visit: Medication Problem [65] Cmt: tizanidine Prescriptions as of 06/25/2025 - tiZANidine (ZANAFLEX) 4 mg tablet Take 2 tablets by mouth every 8 hours as needed (muscle spasms). Patient should start on July 15, 2025. - amLODIPine (NORVASC) 5 mg tablet Take 1 tablet by mouth once daily. - atorvastatin (LIPITOR) 20 mg tablet Take 1 tablet by mouth three times a week. - DULoxetine DR (CYMBALTA) 20 mg capsule Take 1 capsule by mouth once daily. Added to 60 mg capsule. - DULoxetine DR (CYMBALTA) 60 mg capsule Take 1 capsule by mouth once daily. - ergocalciferol 50,000 unit capsule (VITAMIN D2, DRISDOL) Take 1 capsule by mouth one time a week. - levothyroxine (SYNTHROID) 88 mcg tablet Take 1 tablet by mouth daily before breakfast. - losartan (COZAAR) 25 mg tablet Take 1 tablet by mouth once daily. - omeprazole (PRILOSEC) 40 mg capsule Take 1 capsule by mouth once daily. - dulaglutide (TRULICITY) 4.5 mg/0.5 mL pen injector Inject 4.5 mg subcutaneously one time a week. - gabapentin (NEURONTIN) 300 mg capsule Take 3 capsules by mouth two times a day for 180 days. - blood sugar diagnostic (BLOOD GLUCOSE TEST) test strip Test blood sugar(s) 2 times daily. Dx: Type 2 DM - Uncontrolled E11.65 Insulin: No - cyanocobalamin 1,000 mcg/mL Inject once a week on Tuesdays for 3 weeks, then once a month - Lancets Test 3 times weekly, Insulin Dep? No E11.9 DM 2 - Syringe with Needle, Disp, (SYRINGE 3CC/25GX1) 3 mL 25 gauge x 1 For B12 injections - dupilumab 300 mg/2 mL subcutaneous syringe ([employer]) Inject subcutaneously. - ZINC OXIDE TOPICAL Apply to affected area. - triamcinolone acetonide (KENALOG) 0.1 % ointment Apply to affected area two times a day. - diclofenac sodium (VOLTAREN) 1 % topical gel Apply 2 g to affected area four times daily as needed (pain.). - diphenhydramine HCl (BENADRYL ALLERGY ORAL) Take 2 capsules by mouth daily at bedtime. Problem List As Of Date 06/24/2025 Noted Resolved EDEMA [R60.9] 12/17/2007 12/22/2008 Routine general medical examination at [facility]12/17/2007 02/28/2012 Primary hypertension [I10] 12/17/2007 Obesity, unspecified [E66.9] 12/17/2007 07/25/2012 Dysmetabolic syndrome X [E88.810] 03/14/2008 12/03/2021 PAIN HIP JOINT [M25.559] 03/14/2008 04/23/2015 Hypothyroidism [E03.9] 06/10/2008 Mgrn Wo Aura w Intrc Mgrn [G43.019] 09/02/2008 01/29/2010 Chronic low back pain [M54.50, G89.29] 12/22/2008 Generalized headaches [R51.9] 01/29/2010 12/02/2011 Acne [L70.9] 01/29/2010 12/02/2011 Hypothyroidism [E03.9] 11/17/2010 Rectal bleeding [K62.5] 11/17/2010 12/02/2011 Hot flashes due to surgical menopause [E89.41] 11/17/2010 12/02/2011 Mastalgia [N64.4] 11/17/2010 12/02/2011 Adopted [Z78.9] 11/17/2010 11/09/2018 Knee pain [M25.569] 12/06/201005/22 (more content not included)... Normal [facility] Spine Cervical (Routine)on 0 05-15-2025 Spine Cervical (Routine) [facility] Imaging Services [address] [place] [address] Spine Cervical (Routine) MR#: [id number] Acct: [id number] Name: CHICA SHAH Rep #: [id number] : 1965 F 59 From: America Goddard MD PCP: Dr. Jabari Murillo MD Status: REG CLI Study: Spine Cervical (Routine) Date of Exam: Exam# [id number] Ordering Dr: Hemalatha Negro MD PROCEDURE: SPINE CERVICAL (ROUTINE) 05/15/2025 REASON FOR EXAM: RADICULOPATHY CERVICAL REGION TECHNIQUE: Procedure Code: MRISP Modality: MR Procedure: SPINE CERVICAL (ROUTINE) Multiplanar and multisequence images were obtained without IV contrast administration. COMPARISON: None available. FINDINGS: The visualized posterior fossa contents appear within normal limits. The normal cervical lordosis is maintained. The atlantooccipital and atlantoaxial joints appear normally aligned. The cervical vertebral bodies are normal in height. The cervical vertebral bodies are normal in alignment. The cervical bone marrow signal is within normal limits. Multilevel disc desiccation and intervertebral disc space height loss. There is questionable trace T2/STIR hyperintensity of the cord at C3-C4. The remaining cervical spinal cord signal is otherwise within normal limits. C2-C3: No significant spinal canal stenosis. Facet arthrosis and uncovertebral spurring contribute to moderate left neural foraminal narrowing. Intact right neural foramen. C3-C4: Posterior disc osteophyte complex formation, bilateral facet arthrosis, uncovertebral spurring and ligamentum flavum hypertrophy contribute to moderate to severe spinal canal stenosis with indentation of the cord. Moderate bilateral neural foraminal narrowing. C4-C5: Posterior disc osteophyte complex formation, bilateral facet arthrosis, uncovertebral spurring, and ligamentum flavum hypertrophy contribute to moderate spinal canal stenosis with indentation of the ventral cord. Moderate right and severe left neural foraminal narrowing. C5-C6: Central disc protrusion, bilateral facet arthrosis, uncovertebral spurring, and ligamentum flavum hypertrophy contribute to moderate spinal canal stenosis. Moderate bilateral neural foraminal narrowing. C6-C7: Central disc protrusion, bilateral facet arthrosis, and uncovertebral spurring contribute to moderate spinal canal stenosis. Moderate bilateral neural foraminal narrowing. C7-T1: Central disc protrusion, bilateral facet arthrosis, and uncovertebral spurring contribute to mild spinal canal stenosis. Mild bilateral neural foraminal narrowing. MRI/Spine Cervical (Routine) IMPRESSION: Advanced multilevel cervical spondylosis most marked at C3-C4 where there is gwxuwnth-uf-yrwrck spinal canal stenosis with impingement of the cord. Questionable trace edematous cord signal change at this level. The remaining cervical spinal cord signal is within normal limits. In compliance with [place] State Law Act 112, an automated letter has been sent to this patient notifying them that there are findings on this exam that warrant further discussion with their healthcare provider. Communication Alert The findings in the impression above were relayed directly by Dr. America Goddard by telephone to Dr. Hemalatha Negro on 05/19/2025 at 9:37 am with readback verification. Reading Location: [facility] CC: Dr. Hemalatha Negro MD; Dr. Jabari Murillo MD Shift Engineer: Signed [facility] 05-13-2025 [facility] Telephone (INTMWS) CHICA SHAH ([id number]) 1965 F T Date Time Provider Department 05/13/25 JABARI MURILLO INTWS During your visit today, we recorded the following information about you: Lauryn Alvarenga MA 05/13/2025 5:26 PM Signed Please see lab results you ordered View External Labs - Chemistry [ID [id number]] View External Labs - Chemistry [ID [id number]] VICTORINA Black Naz M, APRN.BOBTAIL DRIVER 05/14/2025 7:32 AM Signed Please let the patient know her HgbA1c was 6.3, diabetes well controlled. TSH and chemistry profile were normal. Cecilia Whitlock APRN.Azalia Galloway LPN 05/14/2025 9:36 AM Signed Patient notified, verbalized understanding. Azalia Haas LPN Allergies As of Date: 05/13/2025 Noted Allergy Reaction CELEBREX (CELECOXIB) 12/02/2020 2 - Rash LATEX 01/29/2010 5 - Intolerance Comments: burning feeling NSAIDS (NON-STEROIDAL ANTI-INFLAM*12/31/19 14 14 - Other: See Comments Comments: Avoid due to Gastric Bypass Date Reviewed: 05/12/2025 Reviewed by: Cecilia Whitlock APRN.BOBTAIL DRIVER - Fully Assessed Reason for Visit: Order(s):HEMOGLOBIN A1C (EXTERNAL) [9943260] Order #: [id number] CMP (EXTERNAL) [[id number]] Order #: [id number] TSH (EXTERNAL) [[id number]] Order #: [id number] Prescriptions as of 05/14/2025 - amLODIPine (NORVASC) 5 mg tablet Take 1 tablet by mouth once daily. - atorvastatin (LIPITOR) 20 mg tablet Take 1 tablet by mouth three times a week. - DULoxetine DR (CYMBALTA) 20 mg capsule Take 1 capsule by mouth once daily. Added to 60 mg capsule. - DULoxetine DR (CYMBALTA) 60 mg capsule Take 1 capsule by mouth once daily. - ergocalciferol 50,000 unit capsule (VITAMIN D2, DRISDOL) Take 1 capsule by mouth one time a week. - levothyroxine (SYNTHROID) 88 mcg tablet Take 1 tablet by mouth daily before breakfast. - losartan (COZAAR) 25 mg tablet Take 1 tablet by mouth once daily. - omeprazole (PRILOSEC) 40 mg capsule Take 1 capsule by mouth once daily. - doxycycline monohydrate 100 mg tablet Take 1 tablet by mouth two times a day for 5 days. - tiZANidine (ZANAFLEX) 4 mg tablet Take 2 tablets by mouth every 8 hours as needed (muscle spasms). - dulaglutide (TRULICITY) 4.5 mg/0.5 mL pen injector Inject 4.5 mg subcutaneously one time a week. - gabapentin (NEURONTIN) 300 mg capsule Take 3 capsules by mouth two times a day for 180 days. - blood sugar diagnostic (BLOOD GLUCOSE TEST) test strip Test blood sugar(s) 2 times daily. Dx: Type 2 DM - Uncontrolled E11.65 Insulin: No - cyanocobalamin 1,000 mcg/mL Inject once a week on Tuesdays for 3 weeks, then once a month - Lancets Test 3 times weekly, Insulin Dep? No E11.9 DM 2 - Syringe with Needle, Disp, (SYRINGE 3CC/25GX1) 3 mL 25 gauge x 1 For B12 injections - dupilumab 300 mg/2 mL subcutaneous syringe ([employer]) Inject subcutaneously. - ZINC OXIDE TOPICAL Apply to affected area. - triamcinolone acetonide (KENALOG) 0.1 % ointment Apply to affected area two times a day. - diclofenac sodium (VOLTAREN) 1 % topical gel Apply 2 g to affected area four times daily as needed (pain.). - diphenhydramine HCl (BENADRYL ALLERGY ORAL) Take 2 capsules by mouth daily at bedtime. Problem List As Of Date 05/13/2025 Noted Resolved EDEMA [R60.9] 12/17/2007 12/22/2008 [facility] at [facility]12/17/2007 02/28/2012 Primary hypertension [I10] 12/17/2007 Obesity, unspecified [E66.9] 12/17/2007 07/25/2012 Dysmetabolic syndrome X [E88.810] 03/14/2008 12/03/2021 PAIN HIP JOINT [M25.559] 03/14/2008 04/23/2015 Hypothyroidism [E03.9] 06/10/2008 Mgrn Wo Aura w Intrc Mgrn [G43.019] 09/02/2008 01/29/2010 Chronic low back pain [M54.50, G89.29] 12/22/2008 Generalized headaches [R51.9] 01/29/2010 12/02/2011 Acne [L70.9] 01/29/2010 12/02/2011 Hypothyroidism [E03.9] 11/17/2010 Rectal bleeding [K62.5] 11/17/2010 12/02/2011 Hot flashes due to surgical menopause [E89.41] 11/17/2010 12/02/2011 Mastalgia [N64.4] 11/17/2010 12/02/2011 Adopted [Z78.9] 11/17/2010 11/09/2018 Knee pain [M25.569] 12/06/2010 06/12/2012 Sprain of left shoulder [S43.402A] 12/06/2010 12/02/2011 Morbid obesity [E66.01] 02/15/2011 07/25/2012 Vitamin D deficiency [E55.9] 02/17/2011 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) (H*07/20/2011 Hyperlipidemia [E78.5] 07/20/2011 Fatty liver [K76.0] 07/20/2011 Cholelithiasis [K80.20] 07/20/2011 11/09/2018 PVC (premature ventricular contraction) [I49.3] 07/20/2011 04/23/2015 Gastric bypass status for obesity [Z98.84] Urine, incontinence, stress female [N39.3] 12/02/2011 Hot flashes due to surgical menopause [E89.41] 01/25/2012 Upper back pain on right side [M54.9] 02/11/2012 06/12/2012 Extensor intersection syndrome [M65.839] 12/30/2013 04/23/2015 Left arm swelling [M79.89] 12/30/2013 04/23/2015 Left arm pain [M79.602] 12/30/2013 04/23/2015 Fi (more content not included)... Normal [facility] CNOVon 05-12-2025 CNOV Office Visit (INTMWS) CHICA SHAH ([id number]) 1965 F CHT Date Time Provider Department 05/12/25 8:20 AM CECILIA WHITLOCK INTMWS During your visit today, we recorded the following information about you: Pulse Respiration Blood pressure Weight 84/minute 12/minute 122/72 64.4 kg Cecilia Whitlock, MRI MANAGER.BOBTAIL DRIVER 05/12/2025 8:59 AM Signed CC: Patient presents with: Follow Up: 6 months HPI Recording using ambient Dragon Army software for draft documentation of the visit was discussed with the patient/authorized customer engagement representative; all questions welcomed and answered. Patient/authorized customer engagement representative agreed to proceed The patient is a 59-year-old female with HTN, T2DM, hyperlipidemia, fibromyalgia, hypothyroidism, and GERD, presenting for medication refills and evaluation of an infected abdominal cat scratch. Abdominal Wound: - Sustained a scratch on the abdomen near her belly button from a cat, which has become infected. - Reports malodor and drainage from the wound. - Describes the wound as kind of painful but not severe. - Applying triple antibiotic ointment to the wound. Hypertension: - Managed with amlodipine and losartan. - Denies checking blood pressure at home. - Denies side effects of medication Hyperlipidemia: - Managed with atorvastatin; denies side effects. - Last cholesterol check in November. Fibromyalgia: - Managed with Cymbalta 60 mg daily; previously took an additional 20 mg daily, which provided additional relief. - Reports persistent neck pain. - Dissatisfied with current pain management provider, Dr. Negro - Uses tizanidine PRN for shoulder pain and leg cramps, which also aids sleep. Hypothyroidism: - Managed with levothyroxine; taking daily on an empty stomach. GERD: - Managed with omeprazole; denies heartburn, reflux, abdominal pain or dysphagia. Diabetes Mellitus: - Managed with Trulicity; denies side effects. - Previously took Glyset 25 mg PRN, but no longer uses it. - Monitors blood glucose at home; readings range from 60 to 152 mg/dL. - Experiences occasional hypoglycemia around 60 mg/dL, managed with candy intake. Review of Systems Constitutional: Negative for chills, diaphoresis, fatigue, fever and unexpected weight change. Respiratory: Negative for cough, shortness of breath and wheezing. Cardiovascular: Negative for chest pain, palpitations and leg swelling. Neurological: Negative for dizziness, syncope, weakness, light-headedness and headaches. PAST MEDICAL HISTORY Diagnosis Date Ascending aorta dilation 08/19/2023 COVID-19 virus infection 06/12/2020 Diabetes mellitus type 2 in obese 06/01/2011 Displaced fracture of base of fifth metacarpal bone of right hand with routine healing 02/11/2016 DJD (degenerative joint disease) left knee, hips Dysmetabolic syndrome X 03/14/2008 impaired fasting glucose Extensor intersection syndrome 12/30/2013 Fatty liver 07/20/2011 VIRGEN Fibromyalgia 06/03/2014 Gastric bypass status for obesity 07/2011 Hot flashes due to surgical menopause 11/17/2010 Hyperlipidemia 07/20/2011 Hypothyroidism Knee pain 12/06/2010 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 05/19/2015 Syncope 08/03/2023 Unspecified essential hypertension Urine, incontinence, stress female 12/02/2011 Vitamin D deficiency PAST SURGICAL HISTORY Procedure Laterality Date BUNIONECTOMY, LAPIDUS-TYPE Right 09/16/2022 Dr. Santizo DELIVERY ONLY 08/21/2000 , low transverse COLONOSCOPY - DIAGNOSTIC 10/29/2020 EGD 10/29/2020 GASTRIC BYPASS, SHASHA-EN-Y 08/16/2011 laparoscopic, [facility] HYSTERECTOMY HX 08/21/2007 Menorrhagia, Vaginal hysterectomy LAPAROSCOPIC CHOLECYSTECTOMY 12/02/2020 ROTATOR CUFF REPAIR 06/10/2014 Dr. Hansen, Right shoulder ROTATOR CUFF REPAIR 09/09/2014 Redo, right shoulder. SALPINGO-OOPHORECTOM Y COMPL/PRTL UNI/BI SPX 08/21/2008 b/l due to pain TONSILLECTOMY HX 08/21/2005 ALLERGIES Celebrex [Celecoxib], Latex, and Nsaids (Non-Steroidal Anti-Inflammatory Drug) MEDICATIONS amLODIPine (NORVASC) 5 mg tablet Take 1 tablet by mouth once daily. atorvastatin (LIPITOR) 20 mg tablet Take 1 tablet by mouth three times a week. DULoxetine DR (CYMBALTA) 20 mg capsule Take 1 capsule by mouth once daily. Added to [address] (CYMBALTA) 60 mg capsule Take 1 capsule by mouth once daily. ergocalciferol 50,000 unit capsule (VITAMIN D2, DRISDOL) Take 1 capsule by mouth one time a week. levothyroxine (SYNTHROID) 88 mcg tablet Take 1 tablet by mouth daily before breakfast. losartan (COZAAR) 25 mg tablet Take 1 tablet by mouth once daily. omeprazole (PRILOSEC) 40 mg capsule Take 1 capsule by mouth once daily. doxycycline monohydrate 100 mg tablet Take 1 tablet by mouth two times a day for 5 days. tiZANidine (ZANAFLEX) 4 mg tablet Take 2 tablets by mouth every 8 hour (more content not included)... Normal [facility] Metabolic Prof ruthie 05-12-2025 Albumin [Mass/Vol] 4.3 g/dL Normal 3.4-4.8 [place] Comment on above: Performed By: #### L 501.9942, L501.9520, L500.4050 #### [facility] [address] [place], [address] Albumin/Globulin [Mass ratio] 1.8 {ratio} Normal 0.9-2.4 [facility] Comment on above: Performed By: #### L 501.9985, L501.9520, L500.4050 #### [facility] [address] [place], [address] ALK PHOS 157 U/L High 35-104 [facility] Comment on above: Performed By: #### L 501.9985, L501.9520, L500.4050 #### [facility] [address] [place], [address] ALT [Catalytic activity/Vol] 24 U/L Normal <=34 [facility] Comment on above: Performed By: #### L 501.9985, L501.9520, L500.4050 #### [facility] [address] [place], [address] AST [Catalytic activity/Vol] 27 U/L Normal <=31 [facility] Comment on above: Performed By: #### L 501.9985, L501.9520, L500.4050 #### [facility] [address] [place], [address] Bilirubin [Mass/Vol] 0.24 mg/dL Normal 0.00-1.30 [facility] Comment on above: Performed By: #### L 501.9985, L501.9520, L500.4050 #### [facility] [address] [place], [address] BUN/CRE 15.6 RATIO Normal 10-20 [facility] Comment on above: Performed By: #### L 501.9985, L501.9520, L500.4050 #### [facility] [address] [place], [address] Calcium [Mass/Vol] 9.3 mg/dL Normal 7.6-11.0 [place] Comment on above: Performed By: #### L 501.9985, L501.9520, L500.4050 #### [facility] [address] [place], [address] Chloride [Moles/Vol] 108 mmol/L Normal 98-108 [facility] Comment on above: Performed By: #### L 501.9985, L501.9520, L500.4050 #### [facility] [address] [place], [address] CO2 [Moles/Vol] 23.1 mmol/L Normal 21.0-32.0 [facility] Comment on above: Performed By: #### L 501.9985, L501.9520, L500.4050 #### [facility] [address] [place], [address] Creatinine [Mass/Vol] 0.68 mg/dL Low 0.70-1.20 [facility] Comment on above: Performed By: #### L 501.9985, L501.9520, L500.4050 #### [facility] [address] [place], [address] GAP 12 Normal 5-15 [facility] Comment on above: Performed By: #### L 501.9985, L501.9520, L500.4050 #### [facility] [address] [place], [address] GFR/1.73 sq M.predicted among non-blacks MDRD (S/P/Bld) [Vol rate/Area] 100 mL/min/{1.73_m2} Normal >60 [facility] Comment on above: Result Comment: mL/m in/1.73m2 CKD-EPI Creatinine Equation (2020) Performed By: #### L 501.9985, L501.9520, L500.4050 #### [facility] [address] [place], [address] Globulin (S) [Mass/Vol] 2.4 g/dL Normal 2.2-4.2 [facility] Comment on above: Performed By: #### L 501.9985, L501.9520, L500.4050 #### [facility] [address] [place], [address] Glucose [Mass/Vol] 81 mg/dL Normal 70-99 [place] Comment on above: Performed By: #### L 501.9985, L501.9520, L500.4050 #### [facility] [address] [place], [address] Potassium [Moles/Vol] 4.0 mmol/L Normal 3.3-5.1 [facility] Comment on above: Performed By: #### L 501.9985, L501.9520, L500.4050 #### [facility] [address] [place], [address] Sodium [Moles/Vol] 142 mmol/L Normal 133-145 [place] Comment on above: Performed By: #### L 501.9985, L501.9520, L500.4050 #### [facility] [address] [place], [address] T PROT 6.8 g/dL Normal 5.9-8.4 [facility] Comment on above: Performed By: #### L 501.9985, L501.9520, L500.4050 #### [facility] [address] [place], [address] Urea nitrogen [Mass/Vol] 11 mg/dL Normal 4-19 [facility] Comment on above: Performed By: #### L 501.9985, L501.9520, L500.4050 #### [facility] [address] [place], [address] Hemoglobin A1con 05-12-2025 HbA1c (Bld) [Mass fraction] 6.3 % High <=5.6 [facility] Comment on above: Result Comment: Norm al < 5.7 % Prediabetic 5.7 - 6.4 % Diabetic >or= 6.5 % Please note range changes. Performed By: #### L 501.9985, L501.9520, L500.4050 #### [facility] [address] [place], [address] Thyroid Stim Hormone (TSH)on 05-12-2025 TSH 0.352 uIU/mL Normal 0.300-4.200 [facility] Comment on above: Performed By: #### L 501.9985, L501.9520, L500.4050 #### [facility] [address] [place], [address] PT D/C Summary (1)on 025 PT D/C Summary (1) [facility] [place] [address] / REHABILITATION SERVICES DISCHARGE SUMMARY MR#: [id number] Acct: [id number] Name: CHICA SHAH Rep #: [id number] : 1965 59 From: Schuyler Conway DPT, OCS, CSCS Referring Dr.: Dr. Hemalatha Negro MD Status: REG R Insurance: [employer] SEL[employer] PAY INSURANCE Discharge Summary D/C summary: It has been my pleasure to treat CHICA SHAH referred by Dr. Hemalatha Negro MD, with the diagnosis of Back pain, neck pain for a total of 6 visit(s). Discharge Date: 03/20/25 Please see the following information for a summary of their discharge status. Subjective Subjective: Not doing much better pain lorenzo, saw Sruthi last week adn is putting in for injections in neck and LB. Pain is about the same 5-8/10. LB is killer 9/10 at times. Was daniel last night sitting and it was hurting pretty good. Did up to 8 hours worth. HEP at counter: hurt a little. Pool can hurt LB but feeels better in the water. Pain Neck, shoulder baldes.: Pain Intensity (Out of 10): 5 LBP: Pain Intensity (Out of 10): 5 Overall Improvement % Improvement: 0 Objective Objective/Function: Lumb ar AROM ext min limited and painful. SB without increaseed pain, flexion slow but not painful, just stretchy. Walks into PT without antalgia and stiff but I with gait and transfers. 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 d/c sentence: If there are questions or concerns regarding this patient's physical therapy, please feel free to call me at [phone]. Thank you for the referral of this patient. Sincerely, Schuyler Conway, DPT, OCS, CSCS Balance/Gait/Functio nal tests Balance/Special Test Scores Oswestry Low Back Score: 25 Improvement % Improvement: 0 03/20/25 1048 CC: Dr. Hemalatha Negro MD; Dr. Jabrai Murillo MD EBG Signed Normal [facility] Inital Evaluation (1) - PTon 02-03-2025 Inital Evaluation (1) - PT [facility] [place] [address] / REHABILITATION SERVICES INITIAL EVALUATION MR#: [id number] Acct: [id number] Name: CHICA SHAH Rep #: [id number] : 1965 59 From: Schuyler Conway DPT, OCS, CSCS Referring Dr.: Dr. Hemalatha Negro MD Status: REG RCR Insurance: [employer] SELF PAY INSURANCE Patient's Visit Information Visit Information Visit Information: CHICA SHAH is a 59 year old F referred to Physical Therapy by Dr. Hemalatha Negro MD with a diagnosis of Back pain, neck pain. Date of Evaluation: 02/03/25 Physical Therapist: Schuyler Conway DPT, OCS, CSCS Visit Plan Frequency: 2x /Week Duration: 4-6 Weeks Plan: 2x/weeek for 4-6 for aquatic based therapy for: core , postural and UE/LE strength to I pool or HEP. ext bias lumbar ROM, postural correction. IE: pool intro and policies, postural education, activitiy modification with position in car and overdoing gardening at home. Subjective Subjective: Neck and cervical and b/w shoulder blades and into LB. They have hurt for years. [place] Lots of work. Neck shoulder blade pain to 10 and some days 0, took pain pills this am. Pulling weeds makes it worse. somebody's got to do it. LB 0-9/10 and keeps her up at night, was in garden a lot yesterday. Weak in legs. Feet an get numb. These are worse later in day. 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 No regular ex. Basic ADLs, all I sometimes hurt. Pain Neck, shoulder baldes.: Pain Intensity (Out of 10): 1 Pain Intensity Range: 0 and 10 LBP: Pain Intensity (Out of 10): 1 Pain Intensity Range: 0 and 10 Objective Objective: Walks back to PT slow but I. Trasnfers with UE I chair and table. Lumb ar aROM ext mod limtid and painful centrally, flexiona dn SB fulla nd painfree today. cervical aROM 45 rotation B without pain, ext 40 . Posture is forward head and protractd scap B, postural kyphosis. reflexes 1/3 patella and achilles and bi and tri sensation UE and LE WNL to gross light touch B UE and L. strength UE 3+ shoulder elbow, shoulder rotations and wrist, LE strngth 3 flexion abd, ext hips, ext knees and 3+ HS, ankles 4-. no pain just not hard contraactions. core strength flexion 3 and ext 3. Obvious instability with seated testing. 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 Goal Time Frame: 4-6 Weeks Goal 5:: 14 or less oswestry Goal Time Frame: 4-6 Weeks Rehabilitation Potential Physical Therapy Diagnosis: back and nec weeakness and pain limiting comfortable funciton Rehabilitation Potential: Fair Anticipated Interventions Patient/Client Instruction: Educate patient on: Condition and Plan of Care For the Purpose of:: To decrease pain, To increase ROM, To improve nutrient delivery to tissue and To improve muscle performance and motor function Therapeutic Exercise to Include: Strength training, In an aquatic setting, Passive ROM, Active ROM and Dynamic Lumbar Stabilization For the Purpose of:: To decrease pain, To increase ROM, To improve muscle performance and motor function, To increase tolerance to activity/condition/p osition and To improve ability of physical actions for home/community/work/ leisure Text: Thank you for the opportunity to evaluate your patient. For Medicare and Medicare HMO plans, please review the plan of care and approve it. It will need to be FAXED BACK to us at [phone] for Medicare purposes. For Medicare only, by signing this I certify the plan of care. Please let me know if there are questions or concerns regarding this plan of care. Physician Signature: D ate: 02/03/25 0912 CC: Dr. Hemalatha Negro MD; Dr. Jabari Murillo MD EBG Signed Normal [facility] ECHOon 12-03-2024 Echocardiography Echocardiography Report: Transthoracic Echo [facility] Date of service: 12/03/2024 7:53:48 AM COUNSEL Ordering physician: JABARI MURILLO Indication: Syncope Technologist: Christianne Goode [facility] Interpreting physician: Bre Carlos MD PATIENT: Name: MRS. CHICA SHAH : 1965 Age: 59 years Gender: F History of diabetes mellitus and dyslipidemia. Primary rhythm: sinus. Height: 157.50 cm BSA: 1.72 m Weight: 67.80 kg BMI: 27.3 kg/m Heart rate 75 bpm Blood pressure 119/81 mmHg Color Doppler was utilized to interrogate the cardiac valves assessed and spectral Doppler was utilized to determine the flow velocities and pressure gradients reported in this exam. Myocardial strain analysis was performed in this exam to aid in the assessment of cardiac function. MEASUREMENTS: Value Indexed Normal Max aortic dimension 3.3 cm Ao < 3.8 Left atrial volume 34 ml (4ch A-L) 20 ml/m Jonathan <= 34 LV ID (diastole) 4.2 cm (2D) 2.45 cm/m LV ID (systole) 2.8 cm (2D) 1.61 cm/m IVS, leaflet tips 0.8 cm (2D) Posterior wall thickness 1.0 cm (2D) Left ventricular mass 124 g (2D) 72 g/m Global peak long strain -17.5 % LV stroke volume 50 ml (2D biplane) LV end diastolic volume 89 ml (2D biplane) 51.9 ml/m 29<=EDVi<62 LV end systolic volume 39 ml (2D biplane) 22.8 ml/m Ejection Fraction 56 % (2D biplane) EF > 54 FINDINGS: LEFT VENTRICLE The left ventricle is normal in size. Left ventricular systolic function is normal. Global LV myocardial strain is normal. Grade I left ventricular diastolic dysfunction. Mitral annular lateral E/e': 4.5. Mitral annular septal E/e': 7.1. Wall Motion: All scored segments are normal. RIGHT VENTRICLE The right ventricle is normal in size. Right ventricular systolic function is normal. RV systolic tissue Doppler velocity is 10.0 cm/s. Tricuspid annular displacement is 1.7 cm. Estimated right ventricular systolic pressure is not reported due to an insufficient tricuspid regurgitation signal. Estimated right atrial pressure is 3 mmHg (although IVC not seen). LEFT ATRIUM The left atrial cavity is normal in size. RIGHT ATRIUM The right atrial cavity is normal in size. Inferior Vena Cava: The inferior vena cava appears normal measuring 1.3 cm. MITRAL VALVE The mitral valve leaflets are structurally normal. There is no mitral valve regurgitation. The pressure half time is 47 msec. The peak mitral E/A ratio is 0.66. The average mitral E/e' ratio is 5.8. The mitral flow deceleration time is 164 msec. TRICUSPID VALVE The tricuspid valve leaflets are structurally normal. There is trace tricuspid valve regurgitation. AORTIC VALVE The aortic valve cusps are structurally normal. There is no aortic valve regurgitation. Tricuspid aortic valve. The peak gradient is 5 mmHg (peak velocity = 113.1 cm/s). PULMONIC VALVE The pulmonic valve cusps are structurally normal. There is trace (trace - 1+) pulmonic valve regurgitation. AORTA The visualized aorta is normal in size. Measurements - Mid ascending aorta 3.3 cm. INTERATRIAL SEPTUM There is no evidence of intracardiac shunting as detected by Doppler. PERICARDIUM There is no pericardial effusion. CONCLUSIONS: - Exam indication: Syncope - The left ventricle is normal in size. Left ventricular systolic function is normal. EF = 56 5% (2D biplane) Grade I left ventricular diastolic dysfunction. - The right ventricle is normal in size. Right ventricular systolic function is normal. - There are no significant valvular abnormalities. - Exam was compared with the prior echocardiographic exam performed on 08/18/2023, no significant change. * * * Final * * * [employer] : [id number]. [id number] DynamicsSISUID Normal [facility] Dee 11-26-2024 AME Telephone (INTMWS) CHICA SHAH ([id number]) 1965 F T Date Time Provider Department 11/26/24 JABARI MURILLO During your visit today, we recorded the following information about you: Brooke Ramos RN 11/26/2024 1:00 PM Signed WHOOP phoned to report Prior Auth of Heart has been approved from 11-25-24 to 12-24-24. Authorization # [id number] Allergies As of Date: 11/26/2024 Noted Allergy Reaction CELEBREX (CELECOXIB) 12/02/2020 2 - Rash LATEX 01/29/2010 5 - Intolerance Comments: burning feeling NSAIDS (NON-STEROIDAL ANTI-INFLAM*12/31/19 14 14 - Other: See Comments Comments: Avoid due to Gastric Bypass Date Reviewed: 11/20/2024 Reviewed by: Azalia Haas LPN - Fully Assessed Reason for Visit: of [facility] approved [Other] Prescriptions as of 12/26/2024 - tiZANidine (ZANAFLEX) 4 mg tablet Take 2 tablets by mouth every 8 hours as needed (muscle spasms). - amLODIPine (NORVASC) 5 mg tablet Take 1 tablet by mouth once daily. - blood sugar diagnostic (BLOOD GLUCOSE TEST) test strip Test blood sugar(s) 2 times daily. Dx: Type 2 DM - Uncontrolled E11.65 Insulin: No - cyanocobalamin 1,000 mcg/mL Inject once a week on Tuesdays for 3 weeks, then once a month - DULoxetine (CYMBALTA) 60 mg capsule Take 1 capsule by mouth once daily. - Lancets Test 3 times weekly, Insulin Dep? No E11.9 DM 2 - levothyroxine (SYNTHROID) 88 mcg tablet Take 1 tablet by mouth daily before breakfast. - omeprazole (PRILOSEC) 40 mg capsule Take 1 capsule by mouth once daily. - Syringe with Needle, Disp, (SYRINGE 3CC/25GX1) 3 mL 25 gauge x 1 For B12 injections - DULoxetine (CYMBALTA) 20 mg capsule Take 1 capsule by mouth once daily. Added to 60 mg capsule. - miglitol (GLYSET) 25 mg tablet Take 1 tablet by mouth three times a day as needed (with meals as directed.). - ergocalciferol 50,000 unit capsule (VITAMIN D2, DRISDOL) Take 1 capsule by mouth one time a week. - pyrilamine-dextromet horphan (CAPRON DMT) 30-30 mg tab Take 1 tablet by mouth every 6 hours as needed. - gabapentin (NEURONTIN) 300 mg capsule Take 3 capsules by mouth two times a day for 180 days. - losartan (COZAAR) 25 mg tablet Take 1 tablet by mouth once daily. - dulaglutide (TRULICITY) 4.5 mg/0.5 mL pen injector Inject 4.5 mg subcutaneously one time a week. - atorvastatin (LIPITOR) 20 mg tablet Take 1 tablet by mouth three times a week. - dupilumab 300 mg/2 mL subcutaneous syringe (DUPIXENT) Inject subcutaneously. - ZINC OXIDE TOPICAL Apply to affected area. - triamcinolone acetonide (KENALOG) 0.1 % ointment Apply to affected area two times a day. - nystatin-triamcinolo ne (MYCOLOG) ointment Apply sparingly to skin area with rash twice daily as needed. - diclofenac sodium (VOLTAREN) 1 % topical gel Apply 2 g to affected area four times daily as needed (pain.). - diphenhydramine HCl (BENADRYL ALLERGY ORAL) Take 2 capsules by mouth daily at bedtime. Problem List As Of Date 11/26/2024 Noted Resolved EDEMA [R60.9] 12/17/2007 12/22/2008 Routine general medical examination at [facility]*12/17/2007 02/28/2012 Primary hypertension [I10] 12/17/2007 Obesity, unspecified [E66.9] 12/17/2007 07/25/2012 Dysmetabolic syndrome X [E88.810] 03/14/2008 12/03/2021 PAIN HIP JOINT [M25.559] 03/14/2008 04/23/2015 Hypothyroidism [E03.9] 06/10/2008 Mgrn Wo Aura w Intrc Mgrn [G43.019] 09/02/2008 01/29/2010 Chronic low back pain [M54.50, G89.29] 12/22/2008 Generalized headaches [R51.9] 01/29/2010 12/02/2011 Acne [L70.9] 01/29/2010 12/02/2011 Hypothyroidism [E03.9] 11/17/2010 Rectal bleeding [K62.5] 11/17/2010 12/02/2011 Hot flashes due to surgical menopause [E89.41] 11/17/2010 12/02/2011 Mastalgia [N64.4] 11/17/2010 12/02/2011 Adopted [Z78.9] 11/17/2010 11/09/2018 Knee pain [M25.569] 12/06/2010 06/12/2012 Sprain of left shoulder [S43.402A] 12/06/2010 12/02/2011 Morbid obesity [E66.01] 02/15/2011 07/25/2012 Vitamin D deficiency [E55.9] 02/17/2011 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) (H*07/20/2011 Hyperlipidemia [E78.5] 07/20/2011 Fatty liver [K76.0] 07/20/2011 Cholelithiasis [K80.20] 07/20/2011 11/09/2018 PVC (premature ventricular contraction) [I49.3] 07/20/2011 04/23/2015 Gastric bypass status for obesity [Z98.84] Urine, incontinence, stress female [N39.3] 12/02/2011 Hot flashes due to surgical menopause [E89.41] 01/25/2012 Upper back pain on right side [M54.9] 02/11/2012 06/12/2012 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 Normal [facility] 25(OH)D3 [facility]on 2024 25-hydroxyvitamin D3 [Mass/Vol] 65.8 ng/mL Normal 31.0-80.0 [facility] Comment on above: Order Comment: Luma pineda Type: BLOOD SPECIMEN Ordering Facility: [facility] Address: [address] [place] [address] Result Comment: Clas sification of 25 OH Vitamin D status: Deficiency/Insufficiency: < or = 30 ng/ml. Sufficiency/Optimal Levels: 31-80 ng/mL Toxicity: > 100 ng/mL. Test performed by chemiluminescent immunoassay. Performed By: #### 1 989-3 #### [facility] CLIA [id number] [address] [place] [address] OF [place] ALBUMIN/CREATININE RATIO, INE 11-20-2024 Albumin DL <= 20 mg/L (U) [Mass/Vol] mg/dL Normal [facility] Comment on above: Order Comment: Luma pineda Type: BLOOD SPECIMEN Ordering Facility: [facility] Address: [address] [place] [address] Performed By: #### 2 4323-8, 59079-1, 2132-04, 6-3 #### [facility] CLIA [id number] [address] [place] [address] [place] Albumin/Creatinine (U) [Mass ratio] <7 Normal <30 [facility] Comment on above: Order Comment: Luma pineda Type: BLOOD SPECIMEN Ordering Facility: [facility] Address: [address] [place] [address] Result Comment: Adul t Male and Female Nephrotic Criteria: <30 mg/g is considered normal to mildly increased 30-300 mg/g is considered moderately increased >300 mg/g is considered severely increased KDIGO. (2013). KDIGO 2012 Clinical Practice Guideline for the Evaluation and Management of Chronic Kidney Disease. Official Journal of the International Society of Nephrology, 3(1), 1-150. Performed By: #### 2 4323-8, 95133-5, 9, 6-3 #### [facility] CLIA [id number] [address] [place], [place] [id number] [place] Creatinine (U) [Mass/Vol] 169.3 mg/dL Normal 20.0-300.0 [facility] Comment on above: Order Comment: Speci men Type: BLOOD SPECIMEN Ordering Facility: [facility] Address: [address] [place] [address] Performed By: #### 2 4323-8, 28715-2, 2132-04, 6-3 #### [facility] CLIA [id number] [address] [place], [place] [id number] [place] CBC panel Auto (Bld)on 11-20 Erythrocyte distribution width (RBC) [Ratio] 13.6 % Normal 11.5-15.0 [facility] Comment on above: Order Comment: Speci men Type: BLOOD SPECIMEN Ordering Facility: [facility] Address: [address] [place] [address] Performed By: #### 2 4323-8, 66768-1, 2132-04, 6-3 #### [facility] CLIA [id number] [address] [place] [address] [place] Hematocrit (Bld) [Volume fraction] 36.4 % Normal 36.0-46.0 [facility] Comment on above: Order Comment: Speci men Type: BLOOD SPECIMEN Ordering Facility: [facility] Address: [address] [place] [address] Performed By: #### 2 4323-8, 43354-5, 2132-04, 6-3 #### [facility] CLIA [id number] [address] [place], [place] [id number] [place] Hemoglobin (Bld) [Mass/Vol] 11.4 g/dL Low 11.5-15.5 [facility] Comment on above: Order Comment: Speci men Type: BLOOD SPECIMEN Ordering Facility: [facility] Address: [address] [place] [address] Performed By: #### 2 4323-8, 07601-5, 2132-04, 3015-3 #### [facility] CLIA [id number] [address] [place] [address] [place] MCH (RBC) [Entitic mass] 27.3 pg Normal 26.0-34.0 [facility] Comment on above: Order Comment: Speci men Type: BLOOD SPECIMEN Ordering Facility: [facility] Address: [address] [place] [address] Performed By: #### 2 4323-8, 47953-8, 2132-04, 3015-3 #### [facility] CLIA [id number] [address] [place] [address] [place] MCHC (RBC) [Mass/Vol] 31.3 g/dL Normal 30.5-36.0 [facility] Comment on above: Order Comment: Speci men Type: BLOOD SPECIMEN Ordering Facility: [facility] Address: [address] [place] [address] Performed By: #### 2 4323-8, 26172-4, 2132-04, 3 #### [facility] CLIA [id number] [address] [place] [address] [place] MCV (RBC) [Entitic vol] 87.1 fL Normal 80.0-100.0 [facility] Comment on above: Order Comment: Speci men Type: BLOOD SPECIMEN Ordering Facility: [facility] Address: [address] [place] [address] Performed By: #### 2 4323-8, 50669-4, 2132-04, 3 #### [facility] CLIA [id number] [address] [place] [address] [place] Nucleated RBC (Bld) [#/Vol] 10*3/uL Normal <0.01 [facility] Comment on above: Order Comment: Speci men Type: BLOOD SPECIMEN Ordering Facility: [facility] Address: [address] [place] [address] Performed By: #### 2 4323-8, 20761-9, 9, 6-3 #### [facility] CLIA [id number] [address] [place] [address] [place] Platelet mean volume (Bld) [Entitic vol] 9.8 fL Normal 9.0-12.7 [facility] Comment on above: Order Comment: Speci men Type: BLOOD SPECIMEN Ordering Facility: [facility] Address: [address] [place] [address] Performed By: #### 2 4323-8, 15535-5, 2132-04, 6-3 #### [facility] CLIA [id number] [address] [place] [address] [place] Platelets (Bld) [#/Vol] 301 10*3/uL Normal 150-400 [facility] Comment on above: Order Comment: Speci men Type: BLOOD SPECIMEN Ordering Facility: [facility] Address: [address] [place] [address] Performed By: #### 2 4323-8, 51592-4, 2132-04, 6-3 #### [facility] CLIA [id number] [address] [place] [address] [place] RBC (Bld) [#/Vol] 4.18 10*6/uL Normal 3.90-5.20 [facility] Comment on above: Order Comment: Speci men Type: BLOOD SPECIMEN Ordering Facility: [facility] Address: [address] [place] [address] Performed By: #### 2 4323-8, 16895-1, 9, 6-3 #### [facility] CLIA [id number] [address] [place] [address] [place] WBC (Bld) [#/Vol] 7.32 10*3/uL Normal 3.70-11.00 [facility] Comment on above: Order Comment: Speci men Type: BLOOD SPECIMEN Ordering Facility: [facility] Address: [address] [place] [address] Performed By: #### 2 4323-8, 08970-1, 2132-9, 3016-3 #### [facility] CLIA [id number] [address] [place] [address] [place] [address] [place] CNOVon 11-20-2024 CNOV Office Visit (INTMWS) CHICA SHAH ([id number]) 1965 F CHT Date Time Provider Department 11/20/24 8:40 AM JABARI MURILLO INTMWS During your visit today, we recorded the following information about you: Temperature Pulse Respiration Blood pressure 97.6 degrees 80/minute 16/minute 122/72 Weight 67.8 kg Jabari Murillo MD 11/20/2024 9:30 AM Signed This note was created using [employer]. Subjective Chica Shah is a 59 year old female. She was here for follow up. She was having more chronic pains, especially of her right hip and leg. She was interested in a higher dose of duloxetine, which was effective for her chronic pains and fibromyalgia. She used tizanidine on a regular basis, and we reviewed the risks of this medication. She was asking for a refill, but I informed her she still had refills. She had another syncope 1 week ago, and was here with a bruised left periorbital area. She denied domestic abuse. She had been referred for tilt table testing in the past but was unable to do the test. She was due for labs. Her diabetes mellitus, hypertension and lipids were historically controlled. Review of Systems Constitutional: Negative for fatigue, fever and unexpected weight change. HENT: Negative for congestion. Eyes: Negative for visual disturbance. Respiratory: Negative for chest tightness and shortness of breath. Cardiovascular: Positive for leg swelling. Negative for chest pain and palpitations. Genitourinary: Negative. Musculoskeletal: Positive for arthralgias and myalgias. Negative for gait problem. Skin: Negative for wound. Neurological: Positive for syncope. Negative for dizziness, weakness, numbness and headaches. Psychiatric/Behavior al: Negative. 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) Hyperlipidemia Fatty Liver Gastric Bypass Status for Obesity Urine, Incontinence, Stress Female Hot Flashes Due to Surgical Menopause Fibromyalgia Cervicalgia Insomnia Due to Medical Condition Muscular Weakness Falls Frequently Obesity, Class I, Bmi 30-34.9 Intertrigo Syncope Tachycardia Ascending Aorta Dilation Social History Tobacco Use Smoking status: Never Passive exposure: Current Smokeless tobacco: Never Vaping Use Vaping status: Never Used Substance Use Topics Alcohol use: No Drug use: No Current Outpatient Medications Medication Sig miglitol (GLYSET) 25 mg tablet Take 1 tablet by mouth three times a day as needed (with meals as directed.). ergocalciferol 50,000 unit capsule (VITAMIN D2, DRISDOL) Take 1 capsule by mouth one time a week. pyrilamine-dextromet horphan (CAPRON DMT) 30-30 mg tab Take 1 tablet by mouth every 6 hours as needed. tiZANidine (ZANAFLEX) 4 mg tablet Take 2 tablets by mouth every 8 hours as needed (muscle spasms). gabapentin (NEURONTIN) 300 mg capsule Take 3 capsules by mouth two times a day for 180 days. DULoxetine (CYMBALTA) 60 mg capsule Take 1 capsule by mouth once daily. omeprazole (PRILOSEC) 40 mg capsule Take 1 capsule by mouth once daily. amLODIPine (NORVASC) 5 mg tablet Take 1 tablet by mouth once daily. levothyroxine (SYNTHROID) 88 mcg tablet Take 1 tablet by mouth daily before breakfast. losartan (COZAAR) 25 mg tablet Take 1 tablet by mouth once daily. cyanocobalamin 1,000 mcg/mL Inject once a week on Tuesdays for 3 weeks, then once a month Syringe with Needle, Disp, (SYRINGE 3CC/25GX1) 3 mL 25 gauge x 1 For B12 injections dulaglutide (TRULICITY) 4.5 mg/0.5 mL pen injector Inject 4.5 mg subcutaneously one time a week. atorvastatin (LIPITOR) 20 mg tablet Take 1 tablet by mouth three times a week. dupilumab 300 mg/2 mL subcutaneous syringe ([employer]) Inject subcutaneously. ZINC OXIDE TOPICAL Apply to affected area. triamcinolone acetonide (KENALOG) 0.1 % ointment Apply to affected area two times a day. blood sugar diagnostic (BLOOD GLUCOSE TEST) test strip Test blood sugar(s) 2 times daily. Dx: Type 2 DM - Uncontrolled E11.65 Insulin: No Lancets lancets Test 3 times weekly, Insulin Dep? No E11.9 DM 2 nystatin-triamcinolo ne (MYCOLOG) ointment Apply sparingly to skin area with rash twice daily as needed. diclofenac sodium (VOLTAREN) 1 % topical gel Apply 2 g to affected area four times daily as needed (pain.). diphenhydramine HCl (BENADRYL ALLERGY ORAL) Take 2 capsules by mouth daily at bedtime. No current facility-administere d medications for this visit. Objective BP 122/72 (BP Site: Left Arm, BP Position: Sitting, BP Cuff Size: Large Adult) Pulse 80 Temp 36.4 ?C (97.6 ?F) (Temporal) Resp 16 Wt 67.8 kg (149 lb 7.6 oz) LMP 11/21/2007 BMI 27.34 kg/m? Physical Exam Constitutional: General: She is not in acute distress. HENT: Nose: Nose normal. Eyes: (more content not included)... Normal [facility] Comprehensive metabolic 2000 panelon 11-20-2024 Albumin [Mass/Vol] 4.4 g/dL Normal 3.9-4.9 [facility] Comment on above: Order Comment: Luma pineda Type: BLOOD SPECIMEN Ordering Facility: [facility] Address: [address] [place] [address] Performed By: #### 2 4323-8, 53446-3, 2132-9, 3016-3 #### [facility] CLIA [id number] [address] [place] [address] [place] [address] [place] ALP [Catalytic activity/Vol] 180 U/L High 34-123 [facility] Comment on above: Order Comment: Luma pineda Type: BLOOD SPECIMEN Ordering Facility: [facility] Address: [address] [place] [address] Performed By: #### 2 4323-8, 97473-1, 2132-04, 3015-3 #### [facility] CLIA [id number] [address] [place] [address] [place] ALT [Catalytic activity/Vol] 53 U/L High 7-38 [facility] Comment on above: Order Comment: Speci men Type: BLOOD SPECIMEN Ordering Facility: [facility] Address: [address] [place] [address] Performed By: #### 2 4323-8, 96205-4, 2132-04, 3015-3 #### [facility] CLIA [id number] [address] [place] [address] [place] Anion gap [Moles/Vol] 8 mmol/L Normal 8-15 [facility] Comment on above: Order Comment: Speci men Type: BLOOD SPECIMEN Ordering Facility: [facility] Address: [address] [place] [address] Performed By: #### 2 4323-8, 40173-7, 2132-04, 3015-3 #### [facility] CLIA [id number] [address] [place] [address] [place] AST [Catalytic activity/Vol] 39 U/L High 13-35 [facility] Comment on above: Order Comment: Speci men Type: BLOOD SPECIMEN Ordering Facility: [facility] Address: [address] [place] [address] Performed By: #### 2 4323-8, 93174-4, 2132-04, 3015-3 #### [facility] CLIA [id number] [address] [place] [address] [place] Bilirubin [Mass/Vol] 0.3 mg/dL Normal 0.2-1.3 [facility] Comment on above: Order Comment: Speci men Type: BLOOD SPECIMEN Ordering Facility: [facility] Address: [address] [place], [place] [address] Performed By: #### 2 4323-8, 71713-6, 2132-04, 6-3 #### [facility] CLIA [id number] [address] [place], [place] [id number] [place] Calcium [Mass/Vol] 9.6 mg/dL Normal 8.5-10.2 [facility] Comment on above: Order Comment: Speci men Type: BLOOD SPECIMEN Ordering Facility: [facility] Address: [address] [place], [place] [address] Performed By: #### 2 4323-8, 69022-7, 2132-04, 3015-3 #### [facility] CLIA [id number] [address] [place] [address] [place] Chloride [Moles/Vol] 102 mmol/L Normal 98-107 [facility] Comment on above: Order Comment: Speci men Type: BLOOD SPECIMEN Ordering Facility: [facility] Address: [address] [place] [address] Performed By: #### 2 4323-8, 25148-1, 2132-04, 3015-3 #### [facility] CLIA [id number] [address] [place] [address] [place] CO2 [Moles/Vol] 27 mmol/L Normal 22-30 [facility] Comment on above: Order Comment: Speci men Type: BLOOD SPECIMEN Ordering Facility: [facility] Address: [address] [place], [place] [address] Performed By: #### 2 4323-8, 18099-4, 2132-04, 3015-3 #### [facility] CLIA [id number] [address] [place], [place] [id number] [place] Creatinine [Mass/Vol] 0.71 mg/dL Normal 0.58-0.96 [facility] Comment on above: Order Comment: Speci men Type: BLOOD SPECIMEN Ordering Facility: [facility] Address: [address] [place], [place] [address] Performed By: #### 2 4323-8, 67993-0, 2-9, 6-3 #### [facility] CLIA [id number] [address] [place] [address] [place] Creatinine and Glomerular filtration rate.predicted panel (S/P/Bld) 97 mL/min/1.73m??? Normal >=60 [facility] Comment on above: Order Comment: Luma pineda Type: BLOOD SPECIMEN Ordering Facility: [facility] Address: [address] [place] [address] Result Comment: Jayne mated Glomerular Filtration Rate (eGFR) is calculated using the 2020 CKD-EPI creatinine equation. This equation utilizes serum creatinine, sex, and age as parameters. The creatinine assay has traceable calibration to isotope dilution-mass spectrometry. Refer to KDIGO guidelines for clinical interpretation. In patients with unstable renal function, e.g. those with acute kidney injury, the eGFR may not accurately reflect actual GFR. Performed By: #### 2 4323-8, 19766-5, 2-9, 6-3 #### [facility] CLIA [id number] [address] [place], [place] [address] [place] Glucose [Mass/Vol] 88 mg/dL Normal 74-99 [facility] Comment on above: Order Comment: Luma pineda Type: BLOOD SPECIMEN Ordering Facility: [facility] Address: [address] [place] [address] Result Comment: The [place] Diabetes Association (ADA) provides guidance for cutoff values for fasting glucose and random glucose. The ADA defines fasting as no caloric intake for at least 8 hours. Fasting plasma glucose results between 100 to 125 mg/dL indicate increased risk for diabetes (prediabetes). Fasting plasma glucose results greater than or equal to 126 mg/dL meet the criteria for diagnosis of diabetes. In the absence of unequivocal hyperglycemia, results should be confirmed by repeat testing. In a patient with classic symptoms of hyperglycemia or hyperglycemic crisis, random plasma glucose results greater than or equal to 200 mg/dL meet the criteria for diagnosis of diabetes. Reference: Standards of Medical Care in Diabetes 2016, [place] Diabetes Association. Diabetes Care. 2016.39(Suppl 1). Performed By: #### 2 4323-8, 81715-3, 2132-04, 3015-3 #### [facility] CLIA [id number] [address] [place] [address] [place] Potassium [Moles/Vol] 4.4 mmol/L Normal 3.7-5.1 [facility] Comment on above: Order Comment: Speci men Type: BLOOD SPECIMEN Ordering Facility: [facility] Address: [address] [place], [place] [address] Performed By: #### 2 4323-8, 84412-7, 2132-04, 3015-3 #### [facility] CLIA [id number] [address] [place], [place] [address] [place] Protein [Mass/Vol] 6.7 g/dL Normal 6.3-8.0 [facility] Comment on above: Order Comment: Speci men Type: BLOOD SPECIMEN Ordering Facility: [facility] Address: [address] [place], [place] [address] Performed By: #### 2 4323-8, 75393-8, 2132-04, 3015-3 #### [facility] CLIA [id number] [address] [place] [address] [place] Sodium [Moles/Vol] 137 mmol/L Normal 136-144 [facility] Comment on above: Order Comment: Speci men Type: BLOOD SPECIMEN Ordering Facility: [facility] Address: [address] [place] [address] Performed By: #### 2 4323-8, 94008-7, 2132-04, 3015-3 #### [facility] CLIA [id number] [address] [place] [address] [place] Urea nitrogen [Mass/Vol] 11 mg/dL Normal 7-21 [facility] Comment on above: Order Comment: Speci men Type: BLOOD SPECIMEN Ordering Facility: [facility] Address: [address] [place] [address] Performed By: #### 2 4323-8, 15646-4, 2132-04, 3 #### [facility] CLIA [id number] [address] [place] [address] [place] HbA1c (Bld)on 11-20-2024 Average glucose Estimated from glycated hemoglobin (Bld) [Mass/Vol] 137 mg/dL Normal [facility] Comment on above: Order Comment: Luma pineda Type: BLOOD SPECIMEN Ordering Facility: [facility] Address: [address] [place] [address] Result Comment: eAG: (Estimated average glucose) is a calculated value from HgbA1c and is customer engagement representative of the average blood glucose level in the last 2-3 month period. Performed By: #### 2 4323-8, 78262-2, 2132-04, 3 #### [facility] CLIA [id number] [address] [place] [address] [place] HbA1c (Bld) [Mass fraction] 6.4 % High 4.3-5.6 [facility] Comment on above: Order Comment: Luma pineda Type: BLOOD SPECIMEN Ordering Facility: [facility] Address: [address] [place] [address] Result Comment: [place] Diabetes Association guidelines indicate that patients with HgbA1c in the range 5.7-6.4% are at increased risk for development of diabetes, and intervention by lifestyle modification may be beneficial. HgbA1c greater or equal to 6.5% is considered diagnostic of diabetes. Performed By: #### 2 4323-8, 34989-4, 2132-04, 3 #### [facility] CLIA [id number] [address] [place] [address] [place] Lipid 1996 panelon 5 Cholesterol [Mass/Vol] 151 mg/dL Normal <200 [facility] Comment on above: Order Comment: Luma pineda Type: BLOOD SPECIMEN Ordering Facility: [facility] Address: [address] [place], [place] [address] Result Comment: <200 mg/dL, Desirable 200-239 mg/dL, Borderline high >239 mg/dL, High Performed By: #### 2 4323-8, 92476-2, 2132-04, 3015-3 #### [facility] CLIA [id number] [address] [place], [place] [address] [place] Cholesterol in HDL [Mass/Vol] 49 mg/dL Normal >39 [facility] Comment on above: Order Comment: Luma pineda Type: BLOOD SPECIMEN Ordering Facility: [facility] Address: [address] [place] [address] Result Comment: 40-5 9 mg/dL, Acceptable >59 mg/dL, High: Negative risk factor for coronary heart disease <40 mg/dL, Low: Positive risk factor for coronary heart disease Performed By: #### 2 4323-8, 04969-0, 2132-04, 3015-3 #### [facility] CLIA [id number] [address] [place], [place] [address] [place] Cholesterol in LDL [Mass/Vol] 80 mg/dL Normal <100 [facility] Comment on above: Order Comment: Luma pineda Type: BLOOD SPECIMEN Ordering Facility: [facility] Address: [address] [place] [address] Result Comment: <100 mg/dL, Optimal 100-129 mg/dL, Near optimal/above optimal 130-159 mg/dL, Borderline high 160-189 mg/dL, High >189 mg/dL, Very high Secondary prevention optimal LDL Cholesterol levels are recommended to be < 70 mg/dL Performed By: #### 2 4323-8, 61436-5, 2132-04, 6-3 #### [facility] CLIA [id number] [address] [place], [place] [address] [place] Cholesterol in LDL/Cholesterol in HDL [Mass ratio] 1.63 {ratio} Normal <2.54 [facility] Comment on above: Order Comment: Luma men Type: BLOOD SPECIMEN Ordering Facility: [facility] Address: [address] [place] [address] Result Comment: Chelle ruano: 1. National Cholesterol Education Program ATP III Guideline At-A-Glance Quick Desk Reference: National Heart, Lung, and Blood [place]. National Institutes of Health. 2001: NIH Publication No. 01-3305. 2. An International Atherosclerosis Society position paper: global recommendations for the management of dyslipidemia: executive summary, Atherosclerosis. 2014: 232(2):410-413. Performed By: #### 2 4323-8, 31795-5, 2132-04, 3015-3 #### [facility] CLIA [id number] [address] [place] [address] [place] Cholesterol in VLDL [Mass/Vol] 22 mg/dL Normal <30 [facility] Comment on above: Order Comment: Speci men Type: BLOOD SPECIMEN Ordering Facility: [facility] Address: [address] [place] [address] Performed By: #### 2 4323-8, 16830-7, 2132-04, 3015-3 #### [facility] CLIA [id number] [address] [place] [address] [place] Cholesterol non HDL [Mass/Vol] 102 mg/dL Normal <130 [facility] Comment on above: Order Comment: Speci men Type: BLOOD SPECIMEN Ordering Facility: [facility] Address: [address] [place] [address] Result Comment: <130 mg/dL, Optimal 130-159 mg/dL, Near optimal/above optimal 160-189 mg/dL, Borderline high 190-219 mg/dL, High >219 mg/dL, Very high Secondary prevention optimal non HDL Cholesterol levels are recommended to be <100 mg/dL Performed By: #### 2 4323-8, 57441-9, 2132-04, 6-3 #### [facility] CLIA [id number] [address] [id number] [place] Cholesterol.total/Cho lesterol in HDL [Mass ratio] 3.08 {ratio} Normal <5.10 [facility] Comment on above: Order Comment: Speci men Type: BLOOD SPECIMEN Ordering Facility: [facility] Address: [address] [place] [address] Performed By: #### 2 4323-8, 05957-0, 2132-04, 3 #### [facility] CLIA [id number] [address] [place] [address] [place] FASTING TIME 12 hrs Normal [facility] Comment on above: Order Comment: Speci men Type: BLOOD SPECIMEN Ordering Facility: [facility] Address: [address] [place] [address] Performed By: #### 2 4323-8, 83011-4, 2132-04, 3 #### [facility] CLIA [id number] [address] [place] [address] [place] Triglyceride [Mass/Vol] 109 mg/dL Normal <150 [facility] Comment on above: Order Comment: Speci men Type: BLOOD SPECIMEN Ordering Facility: [facility] Address: [address] [place] [address] Result Comment: <150 mg/dL, Normal 150-199 mg/dL, Borderline high 200-499 mg/dL, High >499 mg/dL, Very high Performed By: #### 2 4323-8, 86012-8, 2132-04, 3 #### [facility] CLIA [id number] [address] [place] [address] [place] TSH SerPl-aCncon 11-20-2024 TSH Qn 0.840 m[IU]/L Normal 0.270-4.200 [facility] Comment on above: Order Comment: Speci men Type: BLOOD SPECIMEN [facility]ing Facility: [facility] Address: [address] [place] [address] Performed By: #### 2 4323-8, 70413-3, 2132-04, 3 #### [facility] CLIA [id number] [address] [place] [address] [place] Vit B12 SerPl-mCncon 025 Cobalamin (Vitamin B12) [Mass/Vol] 540 pg/mL Normal 232-1245 [facility] Comment on above: Order Comment: Speci men Type: BLOOD SPECIMEN Ordering Facility: [facility] Address: [address] [place] [address] Performed By: #### 2 4323-8, 63027-6, 2132-9, 3016-3 #### [facility] CLIA [id number] [address] [place] [address] [place] CNOVon 11-01-2024 CNOV Office Visit (INTMWS) CHICA SHAH ([id number]) 1965 F T Date Time Provider Department 11/01/24 8:00 AM CECILIA WHITLOCK INTMWS During your visit today, we recorded the following information about you: Temperature Pulse Respiration Blood pressure 97.9 degrees 100/minute 14/minute 120/78 Weight 67.7 kg Cecilia Whitlock, MRI MANAGER.BOBTAIL DRIVER 11/01/2024 8:27 AM Signed CC: Patient presents with: URI: X 1 month HPI Chica is a 59-year-old female presenting for evaluation of a respiratory infection with associated symptoms. The patient consented to the use of [employer] software for draft documentation of the visit consistent with [facility]?s Notice of Privacy Practices. Respiratory Infection: - Symptoms x1 month, including: - Persistent cough, productive of green-yellow sputum. - Dyspnea, especially with exertion (e.g., climbing stairs). - Wheezing. - Chills, no fever. - Headache. - Facial pain/pressure localized to cheekbones - Sore throat. - Rhinorrhea and nasal congestion, with green-yellow discharge and occasional blood tinged - Symptoms initially improved but worsened on Monday. - Taking OTC cold and sinus medication with temporary relief. - Denies dental pain. - History of pneumonia. - Seasonal/environment al allergies, managed with Benadryl 2 tablets nightly. - Negative COVID-19 test at symptom onset. - Denies smoking history. Review of Systems See HPI PAST MEDICAL HISTORY Diagnosis Date Ascending aorta dilation (HCC) 08/19/2023 COVID-19 virus infection 06/12/2020 Diabetes mellitus type 2 in obese 06/01/2011 Displaced fracture of base of fifth metacarpal bone of right hand with routine healing 02/11/2016 DJD (degenerative joint disease) left knee, hips Dysmetabolic syndrome X 03/14/2008 impaired fasting glucose Extensor intersection syndrome 12/30/2013 Fatty liver 07/20/2011 VIRGEN Fibromyalgia 06/03/2014 Gastric bypass status for obesity 07/2011 Hot flashes due to surgical menopause 11/17/2010 Hyperlipidemia 07/20/2011 Hypothyroidism Knee pain 12/06/2010 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 05/19/2015 Unspecified essential hypertension Urine, incontinence, stress female 12/02/2011 Vitamin D deficiency PAST SURGICAL HISTORY Procedure Laterality Date BUNIONECTOMY, LAPIDUS-TYPE Right 09/16/2022 Dr. Santizo DELIVERY ONLY 08/21/2000 , low transverse COLONOSCOPY - DIAGNOSTIC 10/29/2020 EGD 10/29/2020 GASTRIC BYPASS, SHASHA-EN-Y 08/16/2011 laparoscopic, [facility] HYSTERECTOMY HX 08/21/2007 Menorrhagia, Vaginal hysterectomy LAPAROSCOPIC CHOLECYSTECTOMY 12/02/2020 ROTATOR CUFF REPAIR 06/10/2014 Dr. Hansen, Right shoulder ROTATOR CUFF REPAIR 09/09/2014 Redo, right shoulder. SALPINGO-OOPHORECTOM Y COMPL/PRTL UNI/BI SPX 08/21/2008 b/l due to pain TONSILLECTOMY HX 08/21/2005 ALLERGIES Celebrex [Celecoxib], Latex, and Nsaids (Non-Steroidal Anti-Inflammatory Drug) MEDICATIONS tiZANidine (ZANAFLEX) 4 mg tablet Take 2 tablets by mouth every 8 hours as needed (muscle spasms). gabapentin (NEURONTIN) 300 mg capsule Take 3 capsules by mouth two times a day for 180 days. DULoxetine (CYMBALTA) 60 mg capsule Take 1 capsule by mouth once daily. omeprazole (PRILOSEC) 40 mg capsule Take 1 capsule by mouth once daily. amLODIPine (NORVASC) 5 mg tablet Take 1 tablet by mouth once daily. levothyroxine (SYNTHROID) 88 mcg tablet Take 1 tablet by mouth daily before breakfast. losartan (COZAAR) 25 mg tablet Take 1 tablet by mouth once daily. cyanocobalamin 1,000 mcg/mL Inject once a week on Tuesdays for 3 weeks, then once a month dulaglutide (TRULICITY) 4.5 mg/0.5 mL pen injector Inject 4.5 mg subcutaneously one time a week. atorvastatin (LIPITOR) 20 mg tablet Take 1 tablet by mouth three times a week. dupilumab 300 mg/2 mL subcutaneous syringe ([employer]) Inject subcutaneously. ZINC OXIDE TOPICAL Apply to affected area. triamcinolone acetonide (KENALOG) 0.1 % ointment Apply to affected area two times a day. blood sugar diagnostic (BLOOD GLUCOSE TEST) test strip Test blood sugar(s) 2 times daily. Dx: Type 2 DM - Uncontrolled E11.65 Insulin: No Lancets lancets Test 3 times weekly, Insulin Dep? No E11.9 DM 2 diclofenac sodium (VOLTAREN) 1 % topical gel Apply 2 g to affected area four times daily as needed (pain.). diphenhydramine HCl (BENADRYL ALLERGY ORAL) Take 2 capsules by mouth daily at bedtime. miglitol (GLYSET) 25 mg tablet Take 1 tablet by mouth three times a day as needed (with meals as directed.). ergocalciferol 50,000 unit capsule (VITAMIN D2, DRISDOL) Take 1 capsule by mouth one time a week. amoxicillin-clavulan ate potassium (AUGMENTIN) 500-125 mg per tablet Take 1 tablet by mouth every 12 hours for 7 days. pyrilamine-dextromet horphan (CAPRON DMT) 30-30 mg tab Take 1 tablet by mouth (more content not included)... Normal [facility] Cerv Spine 2 or 3 Viewson Cerv Spine 2 or [address] [facility] Imaging Services [address] [place] [address] Cerv Spine 2 or 3 Views MR#: [id number] Acct: [id number] Name: CHICA SHAH Rep #: [id number] : 1965 F 59 From: Deangelo Conn MD PCP: Dr. Jabari Murillo MD Status: REG CLI Study: Cerv Spine 2 or 3 Views Date of Exam: 09/11/24 Exam# [id number] Ordering Dr: Hemalatha Negro MD [id number] EXAM: XR CERVICAL SPINE, 2 OR 3 VIEWS CLINICAL INDICATION: PAIN TECHNIQUE: Frontal and lateral views of the cervical spine. COMPARISON: 07/30/2020. FINDINGS: VERTEBRAE: No acute or remote fractures of the vertebral bodies and posterior osseous elements. No lytic or blastic lesions. DISC SPACES: More pronounced degenerative disc space narrowing with increased vertebral endplate sclerosis at C3-C4 disc space level. Moderate disc space narrowing at C5-C6 and C6-C7 disc space levels with anterior marginal spurs are unchanged. Moderate C7-T1 disc space narrowing is a new finding. No acute fractures. SOFT TISSUES: Unremarkable. No prevertebral soft tissue widening. LUNG APICES: Clear. RAD/Cerv Spine 2 or 3 Views IMPRESSION: 1. More pronounced degenerative disc space with increased endplate sclerosis at C3-C4 disc space level. 2. Moderate C7-T1 disc space height narrowing is a new finding. 3. Moderate C5-C6 and C6-C7 disc space narrowing are unchanged. Electronically Signed: Deangelo Conn MD at 16:09 EST Reading Location ID and State: [id number] , Service support , CC: Dr. Hemalatha Negro MD; Dr. Jabari Murillo MD Shift Engineer: Signed Normal [facility] Thoracic Spine 3 Viewson Thoracic Spine [address] [facility] Imaging Services [address] [place] [address] Thoracic Spine 3 Views MR#: [id number] Acct: [id number] Name: CHICA SHAH Rep #: [id number] : 1965 F 59 From: Deangelo Conn MD PCP: Dr. Jabari Murillo MD Status: REG CLI Study: Thoracic Spine 3 Views Date of Exam: 09/11/24 Exam# [id number] Ordering Dr: Hemalatha Negro MD [id number] EXAM: XR THORACIC SPINE, 3 VIEWS CLINICAL INDICATION: PAIN TECHNIQUE: Frontal, lateral and swimmer''s views of the thoracic spine. COMPARISON: 02/13/2012. FINDINGS: VERTEBRAE: Mild old anterior wedge compression fractures involving T7, T8 and T9 vertebral bodies are unchanged. No spondylolisthesis. Preservation of the normal thoracic kyphosis. No significant facet arthropathy. DISC SPACES: Unremarkable. Disc spaces are maintained. RAD/Thoracic Spine 3 Views IMPRESSION: 1. No suspicious acute fractures of the thoracic spine. 2. Mild old anterior wedge compression fractures involving T7, T8 and T9 are unchanged. Electronically Signed: Deangelo Conn MD at 16:11 EST , CC: Dr. Hemalatha Negro MD; Dr. Jabari Murillo MD Shift Engineer: Signed Normal [facility] JORDAN SCREENING W TOMOon 08-08 JORDAN SCREENING W DENEEN * * *Final Report* * * DATE OF EXAM: Aug 08 2024 7:48AM [id number] - JORDAN SCREENING W DENEEN / PROCEDURE REASON: Encounter for screening mammogram for breast cancer * * * * Physician Interpretation * * * * RESULT: [place] [address] #[id number] - JORDAN SCREENING W DENEEN HISTORY: Patient is 59 years old and is seen for screening and is asymptomatic in both breasts. Patient states no personal history of breast cancer. Patient states no personal history of other cancers. COMPARISON STUDIES: The present examination has been compared to prior imaging studies dated 01/11/2016 (mammogram), 10/20/2020 (ultrasound) and 10/20/2020 (mammogram). MAMMOGRAM TECHNIQUE: The study was acquired using full field digital technology and interpreted from soft copy. Digital Breast Tomosynthesis (DBT) images were obtained and used to assist in the interpretation of this examination. Computer-aided detection was utilized by the radiologist in the interpretation of this examination. MAMMOGRAM FINDINGS: There are scattered areas of fibroglandular density. No suspicious masses, calcifications or other abnormalities are seen in either breast. There are no significant interval changes. IMPRESSION: There is no mammographic evidence of malignancy in either breast. Routine screening mammogram is recommended. Annual mammogram will be due in 1 year. BI-RADS Category 1: Negative RISK: Based on the Tyrer-Cuzick (TC) risk assessment model, this patient has a 4.0% lifetime risk of developing breast cancer, meaning they are at average risk for developing breast cancer. However, this is only an estimate based on available history provided on the patient's questionnaire. We encourage all patients to talk with their providers about these results, further recommendations for managing breast health, and appropriate supplemental screening options if the patient has dense breast tissue. Interpreting Radiologist: Omid Alba M.D. Electronically signed on: 08/09/2024 Shift Engineer: DAMIAN Transcribe Date/Time: Aug 08 2024 7:38A Dictated by: OMID ALBA MD This examination was interpreted and the report reviewed and electronically signed by: OMID ALBA MD on Aug 09 2024 7:22AM EST [id number] Normal [facility] HEMOGLOBIN A1C (POC)on 04-23 HbA1c (Bld) [Mass fraction] 5.8 % Abnormal 4.3 - 5.6 % [facility] Comment on above: Location:[address], [address] Point of care (POC) Hemoglobin A1c (HGBA1C) testing is intended to assess glucose control and provide a management tool for patients known to have diabetes and their healthcare providers. Target HGBA1C levels may depend on specific clinical circumstances. POC HGBA1C is not intended for use as a diagnostic or screening test; laboratory-based testing should be used for diagnostic purposes. The following information is supplemental and may not be applicable to specific diabetes management situations: The POC device ditching machine engineer provides a normal range of 4.2% to 6.5% for the HGBA1C POC test. However, the [place] [employer] guidelines indicate that patients with HGBA1C in the range of 5.7% to 6.4% are at increased risk for development of diabetes and that intervention by lifestyle modification may be beneficial. A HGBA1C level greater than or equal to 6.5% is considered diagnostic of diabetes, pending confirmatory testing. Use of HGBA1C testing to evaluate glucose control may not be appropriate for patients with hemoglobin variants or other conditions (e.g. anemia) that alter red blood cell lifespan. Interpretation and review of laboratory results Abnormal [facility] EMG(NEURO/NI)on 02-14-2024 Results can be seen in attached scanned documents. If you are a patient reviewing this test result, call the doctor who ordered the test with any questions. [facility] XR Toes - right 3 Viewson IMPRESSION: Possible nondisplaced fracture of the base of the distal phalanx of the right first Shift Engineer: MIAH Transcribe Date/Time: Feb 12 2024 9:13A Dictated by : ZOË ABDUL MD This examination was interpreted and the report reviewed and electronically signed by: ZOË ABDUL MD on Feb 12 2024 9:17AM [facility] DIVISION OF RADIOLOGY * * *Final Report* * * DATE OF EXAM: Feb 12 2024 9:08AM WOX 5269 - XR TOE 3V AP/LAT/OBL RT / PROCEDURE REASON: multiple diagnoses * * * * Physician Interpretation * * * * EXAMINATION: XR TOE 3V AP/LAT/OBL RT CLINICAL HISTORY: Right first toe pain after trauma Technique: XR TOE 3V AP/LAT/OBL RT -- RIGHT with 3 views on 3 images Comparison: None RESULT: Postoperative changes from right first metatarsal osteotomy and bunionectomy. Possible nondisplaced fracture of the base of the distal phalanx of the right first toe. No dislocation. Joint spaces are maintained. DIVISION OF RADIOLOGY Provider, [facility] [place] - 02/12/2024 * * *Final Report* * * DATE OF EXAM: Feb 12 2024 9:08AM WOX 5269 - XR TOE 3V AP/LAT/OBL RT / PROCEDURE REASON: multiple diagnoses * * * * Physician Interpretation * * * * EXAMINATION: XR TOE 3V AP/LAT/OBL RT CLINICAL HISTORY: Right first toe pain after trauma Technique: XR TOE 3V AP/LAT/OBL RT -- RIGHT with 3 views on 3 images Comparison: None RESULT: Postoperative changes from right first metatarsal osteotomy and bunionectomy. Possible nondisplaced fracture of the base of the distal phalanx of the right first toe. No dislocation. Joint spaces are maintained. IMPRESSION IMPRESSION: Possible nondisplaced fracture of the base of the distal phalanx of the right first Shift Engineer: PSCB Transcribe Date/Time: Feb 12 2024 9:13A Dictated by : ZOË ABDUL MD This examination was interpreted and the report reviewed and electronically signed by: ZOË ABDUL MD on Feb 12 2024 9:17AM EST [facility] Radiology Study observation (narrative) [facility] XR Toes - right 3 ViewsOrder ed By: [facility] Provider on 02-12-2024 [facility] XR Cervical spine AP and Lat eralon 12-06-2023 IMPRESSION: MODERATE DEGENERATIVE CHANGE AND DISC SPACE NARROWING. SIMILAR TO PREVIOUS. Shift Engineer: PSCB Transcribe Date/Time: Dec 06 2023 2:42P Dictated by : GENARO MAYA MD This examination was interpreted and the report reviewed and electronically signed by: GENARO MAYA MD on Dec 06 2023 2:44PM [facility] DIVISION OF RADIOLOGY * * *Final Report* * * DATE OF EXAM: Dec 05 2023 11:51AM WOX 5308 - XR CERVICAL 2V AP/LAT / PROCEDURE REASON: M54.12 * * * * Physician Interpretation * * * * Examination: XR CERVICAL 2V AP/LAT History: M54.12 . Left arm numbness Technique: XR CERVICAL 2V AP/LAT Comparison: 10/14/2019 RESULT: Moderate degenerative change and osteophytosis throughout the cervical spine. Most pronounced at C3-4, C5-6 and C6-7. Moderate disc space narrowing at these same levels. No fracture or prevertebral swelling. Normal lordosis. Alignment is normal. DIVISION OF RADIOLOGY Provider, [facility] [place] - 12/06/2023 * * *Final Report* * * DATE OF EXAM: Dec 05 2023 11:51AM WOX 5308 - XR CERVICAL 2V AP/LAT / PROCEDURE REASON: M54.12 * * * * Physician Interpretation * * * * Examination: XR CERVICAL 2V AP/LAT History: M54.12 . Left arm numbness Technique: XR CERVICAL 2V AP/LAT Comparison: 10/14/2019 RESULT: Moderate degenerative change and osteophytosis throughout the cervical spine. Most pronounced at C3-4, C5-6 and C6-7. Moderate disc space narrowing at these same levels. No fracture or prevertebral swelling. Normal lordosis. Alignment is normal. IMPRESSION IMPRESSION: MODERATE DEGENERATIVE CHANGE AND DISC SPACE NARROWING. SIMILAR TO PREVIOUS. Shift Engineer: PSCB Transcribe Date/Time: Dec 06 2023 2:42P Dictated by : GENARO MAYA MD This examination was interpreted and the report reviewed and electronically signed by: GENARO MAYA MD on Dec 06 2023 2:44PM EST [facility] XR Cervical spine AP and Lat eralOrdered By: [facility] Provider on 12-06-2023 [facility] XR Cervical spine AP and Lat eralon 12-05-2023 Radiology Study observation (narrative) [facility] US ABD RIGHT UPPER QUADRANTo n 06-28-2023 [facility] EPIL EEG ROUTINEon [facility], [facility] EPIL EEG Routine [[id number]] Patient name: CHICA SHAH Date of test: 12/14/2022 Duration: 0 hr 23 min Requested By: JABARI MURILLO Staff Physician: Trever Casanova EEG Fellow or [place]: Simon Mcmullen History: 57 year old female presents with episodes of Syncope. Onset: a year ago. Frequency : sporadic. Duration from one to two minutes.. Description: LOC , urinary incontinence, confusion after.. Last episode: November. EEG to evaluate. Conditions: Awake Sleep Photic Stimulation Auditory Stimulation Diagnosis: Primary: R55 Syncope and collapse Classifications: Abnormal I (10-20 Scalp Electrodes, Anterior Temporal Electrodes, Awake, Sleep, Photic Stimulation, Auditory Stimulation) Interictal: Intermittent Slow, Generalized, Impression: This EEG is suggestive of mild diffuse encephalopathy. No epileptiform discharges or EEG seizures were seen during this recording. Interpreted and electronically signed by Trever Casanova Date of signin12/14/2022 00:00 NEUROLOGY [facility] Basic metabolic 2000 panelon 10-24-2022 Anion gap [Moles/Vol] 12 mmol/L 9 - 18 mmol/L [facility] Calcium [Mass/Vol] 10.0 mg/dL 8.5 - 10. 2 mg/dL [facility] Chloride [Moles/Vol] 101 mmol/L 97 - 10 5 mmol/L [facility] CO2 [Moles/Vol] 24 mmol/L 22 - 30 mmol/L [facility] Creatinine [Mass/Vol] 0.78 mg/dL 0.58 - 0.96 mg/dL [facility] Estimated Glomerular Filtration Rate 88 mL/min/1.73m >=60 mL/min/1.73m [facility] Glucose [Mass/Vol] 95 mg/dL 74 - 99 mg/dL [facility] Potassium [Moles/Vol] 4.5 mmol/L 3.7 - 5.1 mmol/L [facility] Sodium [Moles/Vol] 137 mmol/L 136 - 144 mmol/L [facility] Urea nitrogen [Mass/Vol] 6 mg/dL Low 7 - 21 mg/dL [facility] CBC panel Auto (Bld)on 10-24 Erythrocyte distribution width (RBC) [Ratio] 13.9 % 11.5 - 15.0 % [facility] Hematocrit (Bld) [Volume fraction] 41.1 % 36.0 - 46.0 % [facility] Hemoglobin (Bld) [Mass/Vol] 13.3 g/dL 11.5 - 15.5 g/dL [facility] MCH (RBC) [Entitic mass] 28.7 pg 26.0 - 34.0 pg [facility] MCHC (RBC) [Mass/Vol] 32.4 g/dL 30.5 - 36.0 g/dL [facility] MCV (RBC) [Entitic vol] 88.8 fL 80.0 - 100.0 fL [facility] Nucleated RBC (Bld) [#/Vol] <0.01 k/uL [facility] Platelet mean volume (Bld) [Entitic vol] 9.5 fL 9.0 - 12.7 fL [facility] Platelets (Bld) [#/Vol] 331 10*3/uL 150 - 400 k/uL [facility] RBC (Bld) [#/Vol] 4.63 10*6/uL 3.90 - 5.2 0 m/uL [facility] WBC (Bld) [#/Vol] 11.70 10*3/uL High 3.70 - 11 .00 k/uL [facility] Cholesterol in LDL Direct as say [Mass/Vol]on 10-24-2022 Cholesterol in LDL [Mass/Vol] 75 mg/dL <100 mg/dL [facility] HbA1c (Bld)on 10-24-2022 Average glucose Estimated from glycated hemoglobin (Bld) [Mass/Vol] 120 mg/dL [facility] HbA1c (Bld) [Mass fraction] 5.8 % High 4.3 - 5.6 % [facility] TSH BLDon 10-24-2022 TSH Qn 1.200 m[IU]/L 0.270 - 4.200 mIU/L [facility] LABORATORYOrdered By: Bradly clark on 09-16-2022 Glucose [Mass/Vol] 86 mg/dL Invalid Interpretation Code 70 - 110 mg/dL [facility] XR FOOT MINIMUM 3 VIEWS LEFT on 09-16-2022 XR FOOT MINIMUM 3 VIEWS LEFT ORIGINAL EXAMINATION: THREE XRAY VIEWS OF THE LEFT FOOT09/16/2022 11:51 am COMPARISON: None HISTORY: ORDERING SYSTEM PROVIDED HISTORY: Reason for Exam: fall/injury at home FINDINGS: There is no acute fracture or dislocation. There is moderate soft tissue swelling dorsally over the metatarsals. There is slight flattening of the 2nd metatarsal head, which can be seen with Freiberg's infraction. There is no radiopaque foreign body. The articulations are intact. IMPRESSION: Soft tissue swelling, without acute fracture or dislocation. Interpreted by: Elpidio Carter DO Preliminary Report By: Elpidio Carter DO Electronically signed By Elpidio Carter DO Dictated Date: 09/16/2022 12:21:52 PM Prelim Date: 09/16/2022 12:23:59 PM Sign Date: 09/16/2022 12:23:59 PM Ordering Provider: AUDELIA SANTIZO Normal [facility] ([place]) .GFRon 08-30-2022 GFR 102 ml/min/1.73sqm Normal [facility] ([place]) Comment on above: Result Comment: GFR Population mean for , Non- Americans Ages 20-29 = 116 mL/min/1.73 sq.m. Ages 30-39 = 107 mL/min/1.73 sq.m. Ages 40-49 = 99 mL/min/1.73 sq.m. Ages 50-59 = 93 mL/min/1.73 sq.m. Ages 60-69 = 85 mL/min/1.73 sq.m. Ages 70+ = 75 mL/min/1.73 sq.m. Chronic Kidney Disease: Less than 60 mL/min/1.73 square meters End Stage Renal Disease: Less than 15 mL/min/1.73 square meters Performed By: #### B MP, GFR, A1C #### [address] [address] GFR Non- 85 ml/min/1.73sqm Normal [facility] ([place]) Comment on above: Result Comment: GFR Population mean for , Non- Americans Ages 20-29 = 116 mL/min/1.73 sq.m. Ages 30-39 = 107 mL/min/1.73 sq.m. Ages 40-49 = 99 mL/min/1.73 sq.m. Ages 50-59 = 93 mL/min/1.73 sq.m. Ages 60-69 = 85 mL/min/1.73 sq.m. Ages 70+ = 75 mL/min/1.73 sq.m. Chronic Kidney Disease: Less than 60 mL/min/1.73 square meters End Stage Renal Disease: Less than 15 mL/min/1.73 square meters Performed By: #### B MP, GFR, A1C #### [address] [address] A1Con 08-30-2022 HbA1c (Bld) [Mass fraction] 5.9 % Normal 4.3-6.4 [facility] ([place]) Comment on above: Performed By: #### B MP, GFR, A1C #### [address] [address] BMPon 08-30-2022 BUN/Creatinine Ratio 13 ratio Normal 7-27 [facility] ([place]) Comment on above: Performed By: #### B MP, GFR, A1C #### [address] [address] Calcium [Mass/Vol] 9.6 mg/dL Normal 8.4-10.2 [facility] ([place]) Comment on above: Performed By: #### B MP, GFR, A1C #### [address] [address] Chloride [Moles/Vol] 103 mmol/L Normal 98-107 [facility] ([place]) Comment on above: Performed By: #### B MP, GFR, A1C #### [address] [address] CO2 [Moles/Vol] 31 mmol/L High 22-29 [facility] ([place]) Comment on above: Performed By: #### B MP, GFR, A1C #### [address] [address] Creatinine [Mass/Vol] 0.71 mg/dL Normal 0.55-1.02 [facility] ([place]) Comment on above: Performed By: #### B MP, GFR, A1C #### [address] [address] Electrolyte Balance 6.0 mEq/L Normal 4.0-15.0 [facility] ([place]) Comment on above: Performed By: #### B MP, GFR, A1C #### [address] [address] Glucose [Mass/Vol] 89 mg/dL Normal 70-105 [facility] ([place]) Comment on above: Performed By: #### B MP, GFR, A1C #### [address] [address] Potassium [Moles/Vol] 5.0 mmol/L Normal 3.5-5.1 [facility] ([place]) Comment on above: Performed By: #### B MP, GFR, A1C #### [address] [address] Sodium [Moles/Vol] 140 mmol/L Normal 136-145 [facility] ([place]) Comment on above: Performed By: #### B MP, GFR, A1C #### [facility] [address] [place], [place] [address] Urea nitrogen [Mass/Vol] 9 mg/dL Normal 7-18 [facility] ([place]) Comment on above: Performed By: #### B MP, GFR, A1C #### [facility] [address] [place], [place] [address] SURGICAL PATHOLOGYon 022 Case Report Surgical Pathology Report Case: [id number] Authorizing Provider: Kera Richmond MD Collected: 02/23/2022 01:17 PM Ordering Location: General Surgery Received: 02/23/2022 01:56 PM Pathologist: Sayra Morales MD Specimen: SKIN EXCISION [facility] Clinical History Subcutaneous Mass of Mid Back [facility] FINAL DIAGNOSIS Skin, mid back, excision: - Angiolipoma. SR/CK/rw 02/25/2022 [facility] Gross Description A. SKIN EXCISION. Received in formalin, labeled as skin excision is a single white-gonzales, lobulated segment of tissue measuring 1.5 x 1.1 x 1.1 cm. Serially sectioning reveals homogenous white-gonzales surfaces. The specimen is entirely submitted in one cassette. CG/MLG February 24, 2022 9:46 AM Gross examination performed at [facility], [address] [place] [address] Performing Lab Diagnostic interpretation performed at [facility], [address] [place] [address] CLIA# [id number] Electronics Engineer: Julito Hall M.D. [facility] XR HAND GENERAL 3V PA/LAT/OB L RIGHTon 01-06-2022 [facility] XR Hand - right PA and Later al and Obliqueon 01-06-2022 * * *Final Report* * * DATE OF EXAM: Jan 06 2022 10:52AM WOX 5346 - XR HAND 3V PA/LAT/OBL RT / PROCEDURE REASON: Finger pain, right * * * * Physician Interpretation * * * * Indication: Right hand middle finger pain Comparison: None PA, lateral and oblique views of the right hand are obtained. There is normal architecture and mineralization of the bones. There is no acute fracture or dislocation. Joint spaces are maintained. No destructive osseous lesion. No radiodense foreign body. Impression: 1. No acute fracture or dislocation. Shift Engineer: [facility] Transcribe Date/Time: Jan 06 2022 10:57A Dictated by : ZËO ABDUL MD This examination was interpreted and the report reviewed and electronically signed by: ZOË ABDUL MD on Jan 06 2022 10:59AM EST [id number]_ DIVISION OF RADIOLOGY Provider, [facility] [place] - 01/06/2022 * * *Final Report* * * DATE OF EXAM: Jan 06 2022 10:52AM WOX 5346 - XR HAND 3V PA/LAT/OBL RT / PROCEDURE REASON: Finger pain, right * * * * Physician Interpretation * * * * Indication: Right hand middle finger pain Comparison: None PA, lateral and oblique views of the right hand are obtained. There is normal architecture and mineralization of the bones. There is no acute fracture or dislocation. Joint spaces are maintained. No destructive osseous lesion. No radiodense foreign body. Impression: 1. No acute fracture or dislocation. Shift Engineer: [facility] Transcribe Date/Time: Jan 06 2022 10:57A Dictated by : ZOË ABDUL MD This examination was interpreted and the report reviewed and electronically signed by: ZOË ABDUL MD on Jan 06 2022 10:59AM EST [facility] Radiology Study observation (narrative) [facility] XR Hand - right PA and Later al and ObliqueOrdered By: [facility] Provider on 01-06-2022 [facility] HEMOGLOBIN A1C (POC)on 12-03 HbA1c (Bld) [Mass fraction] 5.8 % 4.2 - 5.6 % [facility] SURGICAL PATHOLOGYon 022 CASE REPORT Normal [facility] Comment on above: Order Comment: Speci men Type: TISSUE SPECIMEN Ordering Facility: [facility] Address: [address] [place] [address] [place] [address] Result Comment: Surg ica Pathology Report Case: [id number] Authorizing Provider: Kera Richmond MD Collected: 10/21/2021 10:35 AM Ordering Location: [facility] SURGERY Received: 10/21/2021 11:17 AM Pathologist: Fernando Mayers MD Specimen: LIPOMA, upper back Performed By: #### S #### [facility] CLIA [id number] [address] [place] [address] FINAL DIAGNOSIS Normal [facility] Comment on above: Order Comment: Speci men Type: TISSUE SPECIMEN Ordering Facility: [facility] Address: [address] [place] [address] Result Comment: A. S oft tissue, upper back, excision: -Mature adipose tissue consistent with lipoma. Performed By: #### S #### [facility] CLIA [id number] [address] [place] [address] FINAL PERFORMING LAB Normal [facility] Comment on above: Order Comment: Speci men Type: TISSUE SPECIMEN Ordering Facility: [facility] Address: [address] [place] [address] Result Comment: Diag nostic interpretation performed at [facility], [address] [place] [address] CLIA# [id number] Electronics Engineer: Schuyler Marin M.D. Performed By: #### S #### [facility] CLIA [id number] [address] [place] [address] GROSS DESCRIPTION A. LIPOMA. Normal [facility] Comment on above: Order Comment: Speci men Type: TISSUE SPECIMEN Ordering Facility: [facility] Address: [address] [place] [address] Result Comment: A. R eceived in form labeled lipoma upper back are multiple yellow fatty segments of tissue aggregating to 4.0 x 3.4 x 1.2 cm. Upon sectioning the specimen is display a yellow fatty cut surface. Insurance Follow Up Representative sections are submitted in formalin in 3 cassettes. Gross examination performed at [facility], [address] [place] [address] KVB October 22, 2021 10:19 AM Performed By: #### S #### [facility] [id number] [address] OF [facility] ANES POSTPROC EVALon 021 ANES POSTPROC EVAL HNO ID: [id number] Author: Schuyler Hoang Service: Anesthesiology Author Type: Anesthesiologist Type: Anesthesia Postprocedure Evaluation Filed: 12/02/2020 2:40 PM Note Text: POST ANESTHESIA EVALUATION NOTE : 1965 Procedure Summary Date: 12/02/20 Room / Location: [facility] OR / [facility] OR Anesthesia Start: 910 Anesthesia Stop: 1047 Procedure: LAPAROSCOPIC CHOLECYSTECTOMY WITH GRAMS (N/A Gallbladder) Diagnosis: Abnormal ultrasound of gallbladder RUQ abdominal pain Surgeons: Julio Rae Responsible Provider: Schuyler Hoang Anesthesia Type: general ASA Status: 3 Anesthesia Type: general Last vitals Vitals Value Taken Time BP 105/50 12/02/20 1315 Temp 36.2 ?C (97.2 ?F) 12/02/20 1235 Pulse 73 12/02/20 1319 Resp 18 12/02/20 1319 SpO2 99 % 12/02/20 1319 Vitals shown include unvalidated device data. Post Anesthesia Patient Status Patient Evaluation: PACU. PACU/ICU Patient Condition: stable. Anticipated Disposition: phase 2 then home. Neurological Status: aware and responsive. Pulmonary Status: breathing comfortably on room air Airway Control: returned to baseline unsupported. Cardiovascular Status: stable. Pain Management: clinically adequate - multimodal analgesia pain management approach Postoperative Hydration: acceptable. Intraoperative Events: no significant anesthesia events Recommendation: continue current plan of care. No complications documented. SIGNATURE: Schuyler Hoang MD PATIENT NAME: Chica Shah DATE: December 02, 2020 TIME: 2:40 PM CSN: [id number] [facility] ANES PRE-OPon 12-02-2020 ANES PRE-OP HNO ID: [id number] Author: Schuyler Hoang Service: Anesthesiology Author Type: Anesthesiologist Type: Anesthesia Preprocedure Evaluation Filed: 12/02/2020 9:00 AM Note Text: ANESTHESIOLOGY DAY OF SURGERY NOTE : 1965 Procedure(s) (LRB): LAPAROSCOPIC CHOLECYSTECTOMY WITH GRAMS (N/A) Surgeon(s): Julio Rae Estimated body mass index is 40.97 kg/m? as calculated from the following: Height as of 11/16/20: 157.5 cm (5' 2). Weight as of 11/16/20: 101.6 kg (224 lb). Most recent hematocrit and potassium results: Hematocrit 38.0 11/12/2020 Potassium 4.7 09/23/2020 Relevant Problems ENDO (+) Hypothyroidism -RENAL (+) Fatty liver I - PHYSICAL EVALUATION AIRWAY Patient intubated: No. Mallampati: III. TM distance: >3 FB. Neck ROM: full ROM without neurological symptoms. Mouth opening: adequate. Short neck: no. Thick neck: no DENTAL Dental findings: teeth intact. Dentures, upper: complete. Dentures, lower: complete. Additional exam findings: no II - ANESTHESIA PLAN ASA Score: 3 Anesthetic Plan: general Airway type: ETT NPO Status: adequate Monitoring plan: Standard ASA. Postoperative analgesic plan: parenteral or oral opioids and multimodal analgesia. Anesthetic Risks, Benefits, Alternatives, Personnel Discussed. Consent obtained from: patient.Patient / Surrogate agrees to blood products: yes DNR status not reviewed with patient and/or family prior to surgery. Significant changes in the patient condition since the History and Physical, not otherwise documented in primary service progress note: no. Potential Anesthesia issues that may suggest increased risk of complications or contraindication to planned procedure: none. Vitals Value Taken Time BP 122/73 12/02/20 0833 Pulse Resp 16 12/02/20 0833 Temp 36.2 ?C (97.2 ?F) 12/02/20 0833 SpO2 97 % 12/02/20 0833 Facility-Administere d Medications as of 12/02/2020 Medication Dose Route Frequency - lactated ringers iv infusion 30 mL/hr INTRAVENOUS CONTINUOUS - ceFAZolin iv piggyback 2 g in D5W (iso-osmotic) 100 mL (ANCEF) 2 g INTRAVENOUS Pre-Op Once Outpatient Medications as of 12/02/2020 Medication Sig - gabapentin (NEURONTIN) 300 mg capsule One capsule in AM. Two capsules at bedtime. - omeprazole (PRILOSEC) 40 mg capsule Take 1 capsule by mouth once daily. - levothyroxine (SYNTHROID) 88 mcg tablet Take 1 tablet by mouth daily before breakfast. - nortriptyline (PAMELOR) 50 mg capsule Take 1 capsule by mouth daily at bedtime. - DULoxetine (CYMBALTA) 60 mg capsule Take 1 capsule by mouth once daily. - cyclobenzaprine (FLEXERIL) 10 mg tablet Take 1 tablet by mouth twice daily as needed. - diphenhydramine HCl (BENADRYL ALLERGY ORAL) Take 2 capsules by mouth daily at bedtime. - meloxicam (MOBIC) 7.5 mg tablet Take 7.5 mg by mouth once daily. - albuterol HFA (PROVENTIL HFA, VENTOLIN HFA) 90 mcg/actuation inhaler Inhale 2 Puffs as instructed every 6 hours as needed. - dicyclomine (BENTYL) 10 mg capsule Take 1 capsule by mouth before meals and at bedtime. - diclofenac sodium (VOLTAREN) 1 % topical gel Apply 2 g to affected area four times daily as needed (pain.). - nystatin-triamcinolo ne (MYCOLOG) ointment Apply sparingly to skin area with rash twice daily as needed. - BIOTIN ORAL Take by mouth once daily. (Patient not taking: Reported on 11/12/2020 ) I have interviewed and examined the patient. I have reviewed the medical record and/or the pre-anesthesia evaluation, pertinent labs, and test results. This contains updated information obtained within 48 hours of Surgery/Procedure. SIGNATURE: Schuyler Hoang MD PATIENT NAME: Chica Shah DATE: December 02, 2020 TIME: 8:59 AM CSN: [id number] [facility] BRIEF OP NOTon 12-02-2020 BRIEF OP NOT HNO ID: [id number] Author: Julio Rae Service: General Surgery Author Type: Physician Type: Brief Op Note Filed: 12/02/2020 10:45 AM Note Text: BRIEF OPERATIVE NOTATION FOR SURGICAL PROCEDURE. Chica Shah 1965 [id number] female LOG ID: [id number] Surgery/Procedure Date: 12/02/2020 Incision/Procedure Start Time: 9:36 AM Incision Close/Procedure End Time: 10:38 AM Surgeon(s)/Procedura list(s) and Training Intern(s): Surgeon(s) and Role: * Julio Rae - Primary Physician Training Intern: Martha Snowden (Pa) REFERRING PHYSICIAN: Outpatient DEPT: [facility] PROVIDER: Minor POS: [id number] ANESTHESIA: General ASA CLASS: 3 - Severe DIAGNOSIS: RUQ pain PROCEDURE: LAPAROSCOPIC CHOLECYSTECTOMY WITH INTRAOPERATIVE CHOLEANGIOGRAM - [id number] IVF: 800 EBL: 10 Specimens: gallbladder ADDITIONAL DIAGNOSES: FINDINGS: fatty liver, normal IOC COMPLICATIONS: None PMHx - PAST MEDICAL HISTORY Diagnosis Date - COVID-19 virus infection 06/12/2020 - Displaced fracture of base of fifth metacarpal bone of right hand with routine healing 02/11/2016 - DJD (degenerative joint disease) left knee, hips - Dysmetabolic syndrome X 03/14/2008 impaired fasting glucose - 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 - [id number] Julio Rae MD [facility] HISTORY PHYSICALon HISTORY PHYSICAL HNO ID: [id number] Author: Julio Rae Service: General Surgery Author Type: Physician Type: HANDP Filed: 12/02/2020 8:47 AM Note Text: HISTORY AND PHYSICAL ? Chica Shah 1965 ? ? REFERRING PHYSICIAN: Malena Patel APRN.C* ? CHIEF COMPLAINT: Consult and Abdominal Pain ? HPI: The patient is a 55 year old female she presents with complaint of severe RUQ abdominal pain She has noted this in the past, but it as intermittent and fleeting However, in the past few weeks, the pain has been more frequent and more severe in intensity. She had undergone upper and lower endoscopy on 10/29/2020 with no major findings causing her pain. She feels that this is gallbladder pain. She is s/p bariatric gastric surgery ? US gallbladder 05/12/2020 IMPRESSION: Fatty liver. ?Focal fatty sparing. Gallbladder sludge. ?Common duct is normal in caliber. ?No gallbladder distention, wall thickening or pericholecystic fluid. ? HIDA scan 05/21/2020 IMPRESSION: NO SCINTIGRAPHIC EVIDENCE OF ACUTE CHOLECYSTITIS. NORMAL GALLBLADDER RESPONSE TO CCK WITHOUT SCINTIGRAPHIC EVIDENCE FOR CHRONIC CHOLECYSTITIS. ? ? PAST MEDICAL HISTORY Diagnosis Date - COVID-19 virus infection 06/12/2020 - Displaced fracture of base of fifth metacarpal bone of right hand with routine healing 02/11/2016 - DJD (degenerative joint disease) ? ? left knee, hips - Dysmetabolic syndrome X 03/14/2008 ? impaired fasting glucose - Extensor intersection syndrome 12/30/2013 - Fatty liver 07/20/2011 ? VIRGEN - Fibromyalgia 06/03/2014 - Gastric bypass status for obesity 07/2011 - Hot flashes due to surgical menopause 11/17/2010 - Hyperlipidemia 07/20/2011 - Hypothyroidism ? - Knee pain 12/06/2010 - 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 05/19/2015 - Unspecified essential hypertension ? - Urine, incontinence, stress female 12/02/2011 - Vitamin D deficiency ? ? PAST SURGICAL HISTORY Procedure Laterality Date - DELIVERY ONLY ? 08/21/2000 ? , low transverse - COLONOSCOPY - DIAGNOSTIC ? 10/29/2020 - EGD ? 10/29/2020 - GASTRIC BYPASS, SHASHA-EN-Y ? 08/16/2011 ? laparoscopic, [facility] - HYSTERECTOMY HX ? 08/21/2007 ? Menorrhagia, Vaginal hysterectomy - REMOVAL OF OVARY/TUBE(S) ? 08/21/2008 ? b/l due to pain - ROTATOR CUFF REPAIR ? 06/10/2014 ? Dr. Hansen, Right shoulder - ROTATOR CUFF REPAIR ? 09/09/2014 ? Redo, right shoulder. - TONSILLECTOMY HX ? 08/21/2005 ? ? Current Outpatient Medications Medication Sig - gabapentin (NEURONTIN) 300 mg capsule One capsule in AM. Two capsules at bedtime. - omeprazole (PRILOSEC) 40 mg capsule Take 1 capsule by mouth once daily. - levothyroxine (SYNTHROID) 88 mcg tablet Take 1 tablet by mouth daily before breakfast. - meloxicam (MOBIC) 7.5 mg tablet Take 7.5 mg by mouth once daily. - nortriptyline (PAMELOR) 50 mg capsule Take 1 capsule by mouth daily at bedtime. - DULoxetine (CYMBALTA) 60 mg capsule Take 1 capsule by mouth once daily. - cyclobenzaprine (FLEXERIL) 10 mg tablet Take 1 tablet by mouth twice daily as needed. - albuterol HFA (PROVENTIL HFA, VENTOLIN HFA) 90 mcg/actuation inhaler Inhale 2 Puffs as instructed every 6 hours as needed. - dicyclomine (BENTYL) 10 mg capsule Take 1 capsule by mouth before meals and at bedtime. - diclofenac sodium (VOLTAREN) 1 % topical gel Apply 2 g to affected area four times daily as needed (pain.). - nystatin-triamcinolo ne (MYCOLOG) ointment Apply sparingly to skin area with rash twice daily as needed. - diphenhydramine HCl (BENADRYL ALLERGY ORAL) Take 2 capsules by mouth daily at bedtime. - BIOTIN ORAL Take by mouth once daily. (Patient not taking: Reported on 11/12/2020 ? ? ALLERGIES: Cymbalta [Duloxetine], Latex, and Nsaids (Non-Steroidal Anti-Inflammatory Drug) ? PERSONAL HISTORY: Social History ? Tobacco Use - Smoking status: Never Smoker - Smokeless tobacco: Never Used Vaping Use - Vaping Use: Never used Substance Use Topics - Alcohol use: No - Drug use: No ? FAMILY HISTORY Adopted: Yes Problem Relation Age of Onset - Diabetes Father ? ? at age 46 - Diabetes Sister ? - Diabetes Sister ? - Hypertension Sister ? - Hypertension Sister ? ? ? REVIEW OF SYSTEMS: GENERAL:?No weight loss, malaise or fevers RESPIRATORY:?Pneumon ia + COVID, SOB CARDIOVASCULAR:?Hype rtension GI:?History of gastric bypass.?The patient states that?her?appetite has been fair.??She?does not?get hungry. There has been some?nausea, no?vomiting. She?denies?dysphagia and denies?odynophagia. There has partially?been indigestion without?heartburn. There has not?been regurgitation. Bowel habits have been irregular. There?has partially?been diarrhea. There has not?been constipation. The patient denies?rectal bleeding. There has not?been melena. No?new or worsening?abdominal pain. MUSCULOSKELETAL:?Pos itive for joint pain or swel (more content not included)... Normal [facility] OPERATIVE NOon 12-02-2020 OPERATIVE NO HNO ID: [id number] Author: Julio Rae Service: General Surgery Author Type: Physician Type: Operative Report Filed: 12/04/2020 7:45 AM Note Text: [facility] - Operative Report CHICA SHAH : 1965 AGE: 55. SEX: F PATIENT TYPE: A HOSP C: [facility] LOCATION: [facility] ATTENDING PHYSICIAN: Julio Rae M.D. CSN NUMBER: [id number] DATE OF SURGERY/PROCEDURE: 12/02/2020 INCISION/PROCEDURE START TIME: 9:36 a.m. INCISION CLOSE/PROCEDURE END TIME: 10:38 a.m. PREOPERATIVE DIAGNOSIS: Right upper quadrant pain, equivocal studies. POSTOPERATIVE DIAGNOSIS: Right upper quadrant pain, normal cholangiogram, few adhesions to the liver likely from her previous gastric bypass surgery. SURGEON: Julio Rae M.D. VETERINARY DENTIST: Martha Snowden PA-C. SURGERY/PROCEDURE: Laparoscopic cholecystectomy with intraoperative cholangiogram. ANESTHESIA: General endotracheal. LOG ID#: [id number]. ASA: 3. INTRAVENOUS FLUIDS: 800 mL. ESTIMATED BLOOD LOSS: 10 mL. URINE OUTPUT: No catheter. FINDINGS: As described above. SPECIMENS: Gallbladder. DRAINS: None. COMPLICATIONS: None. DISPOSITION: Patient taken to PACU in stable condition. DESCRIPTION OF PROCEDURE: The patient was brought to the operative suite. Sign-in was performed verifying patient, site, procedure, position, critical nursing information, VTE and antibiotic prophylaxis. Patient received 2 g of Ancef. Sequential compression devices were placed. Following induction of general anesthetic, patient's abdomen was prepped and draped in usual sterile fashion. Time- out was performed verifying patient, site, procedure, position. Local anesthetic was injected above the umbilicus. Incision was made, dissection was carried down to the fascia, 2 stay sutures were placed in the fascia, incision was made through the fascia and peritoneum was entered under direct visualization. Jahaira trocar was inserted through a stay suture. Pneumoperitoneum with 15 mmHg was insufflated. Two 5 mm ports were placed in position. Visual inspection revealed adhesions to the liver and of the transverse colon. These were taken down sharply. At this point, the gallbladder was grasped, retracted upward outward. There were additional adhesions not actually to the gallbladder but to the liver. These were taken down using electrocautery. Once this was completed, the gallbladder was retracted upward outward and dissection was carried out in Calot triangle. As dissection was continued, a critical view of the neck of the gallbladder performed and the cystic duct with no signs of aberrant structures seen. A clip was placed in the gallbladder cystic junction and a partial ductotomy was made. Percutaneous cholangiocath was inserted with a clip. Intraoperative cholangiogram showed filling of the cystic duct, filling of the common bile duct, filling of the secondary biliary radicals and emptying into the duodenum without obstruction. Clip and catheter were removed from the cystic duct, the cystic duct divided. Dissection was continued. The cystic artery was identified, double clipped proximally, singly distally, and divided. The gallbladder was dissected free from gallbladder fossa, placed in the bag, and removed through the port site. 0 PDS [id number] suture was placed on the umbilical port site defect. The gallbladder fossa was checked for hemostasis. With good hemostasis, the area was irrigated and aspirated until clear. 5 ports were removed under direct visualization. No signs of bleeding. Pneumoperitoneum was released. The umbilical trocar was removed. The umbilical fascia was secured. Skin was closed with interrupted 4-0 Monocryl subcu sutures. Steri-Strips dressings were applied. The patient tolerated procedure well and brought to recovery room in stable condition. Martha Snowden was my tax accounting assistant. She assisted in visualization, retraction, help from subcuticular closure. There were no surgeons or qualified residents available. Julio Rae M.D. RG:[id number] /[id number] [facility] SURGICAL PATHOLOGYon 14-2 021 SURGICAL PATHOLOGY Specimen originated from [facility] Specimen #: [id number] Submitting Physician: Julio Rae M.D. FINAL DIAGNOSIS Gallbladder, cholecystectomy - Mild chronic cholecystitis. SR/RB/rw 12/04/2020 Jesse Kruse MD, Ph.D. (Electronic Signature) SPECIMEN SUBMITTED A: GALLBLADDER CLINICAL DATA ABNORMAL ULTRASOUND OF GALLBLADDER, LMP: HISTORY HYSTERECTOMY GROSS DESCRIPTION A. Received is a 7 x 5 x 5 cm intact gallbladder with an attached 0.7 cm segment of cystic duct. There is no attached lymph node. The serosa is pink to pandey and smooth. The hepatic bed demonstrates minimal attached soft, gonzales tissue. The gallbladder contains bile and no calculi. The wall measures 0.2 cm in uniform thickness and the mucosa is bile-stained and velvety. Insurance Follow Up Representative sections including the cystic duct margin are submitted in one cassette. STS/km 12/03/2020 Gross examination performed at [facility], [address] [place] [address] Date of Report: 12/04/2020 Date of Procedure: 12/02/2020 Date of Receipt: 12/02/2020 Submitted by: Julio Rae M.D. Location: [facility] Diagnostic interpretation performed at [facility], [address] [place] [address]. IA Number: [id number] [facility] XR CHOLANGIOGRAM INTRAOPon 0 12-02-2020 XR CHOLANGIOGRAM INTRAOP * * *Final Report* * * DATE OF EXAM: Dec 02 2020 10:05AM MDR [id number] - XR CHOLANGIOGRAM INTRAOP / PROCEDURE REASON: PAIN * * * * Physician Interpretation * * * * INDICATION: PAIN TECHNIQUE: Cine run(s) performed in the operating room by the surgeon. Fluoroscopic Radiation Summary: Plane A, Air Kerma: 4.6 mGy Plane B, Air Kerma: 0.0 mGy Dose Area Product (DAP): 1495.6 mGy*cm^2 Fluoro time: 0:14 min:sec FINDINGS: There is satisfactory opacification of the extrahepatic biliary tree. No persistent filling defects, strictures, or obstruction are seen. Contrast drains freely into the duodenum. IMPRESSION: Negative Shift Engineer: MIAH Transcribe Date/Time: Dec 02 2020 11:17A Dictated by : LAURYN HUSSEIN MD This examination was interpreted and the report reviewed and electronically signed by: LAURYN HUSSEIN MD on Dec 02 2020 11:18AM EST [id number] Normal [facility] SURGICAL PATHOLOGYon CASE REPORT Normal [facility] Comment on above: Order Comment: Speci men Type: TISSUE SPECIMEN Result Comment: Surg ica Pathology Report Case: [id number] Authorizing Provider: Kera Richmond Collected: 10/29/2020 10:23 AM Ordering Location: SURGERY Received: 10/30/2020 07:34 AM Pathologist: Janine Purdy Specimens: A) - STOMACH BIOPSY, s/p bariatric surgery B) - COLON BIOPSY, random mucosal colon biopsy Performed By: #### S #### [facility] CLIA [id number] [address] [place] [address] FINAL DIAGNOSIS Normal [facility] Comment on above: Order Comment: Speci men Type: TISSUE SPECIMEN Result Comment: Nayan jordan, biopsy - Gastric mucosa with no pathologic diagnosis. - No morphologic evidence of Helicobacter pylori. B. Colon, random, biopsy - Benign colonic mucosa with no pathologic diagnosis. - No active colitis, collagenous colitis, or lymphocytic colitis is seen. Performed By: #### S #### [facility] CLIA [id number] [address] [place] [address] FINAL PERFORMING LAB Normal [facility] Comment on above: Order Comment: Speci men Type: TISSUE SPECIMEN Result Comment: Diag nostic interpretation performed at [facility], [address] [place] [address] CLIA# [id number] Electronics Engineer: Schuyler Marin M.D. Performed By: #### S #### [facility] CLIA [id number] [address] [place] [address] GROSS DESCRIPTION Normal [facility] Comment on above: Order Comment: Speci men Type: TISSUE SPECIMEN Result Comment: A. S TOMACH BIOPSY. Received in formalin labeled stomach biopsy is a gonzales soft segment of tissue measuring 0.3 x 0.2 x 0.1 cm. The specimen is totally submitted in formalin in 1 cassette. B. COLON BIOPSY. Received in formalin labeled random mucosal colon biopsy are multiple gonzales soft segments of tissue aggregating to 0.8 x 0.5 x 0.1 cm. The specimens are totally submitted in formalin in 1 cassette. KVB/nguyễn Gross examination performed at [facility], [address] [place] [address] CLIA# [id number] Performed By: #### S #### [facility] CLIA [id number] [address] [place] [address] No Panel Informationon 07-31 Radiology Study observation (narrative) [facility] XR Pelvis and Hip - right AP and Lateral frogon 07-31-2020 IMPRESSION: Unremarkable hip. No acute fracture or dislocation. Shift Engineer: [facility] Transcribe Date/Time: Jul 31 2020 12:38P Dictated by : AMPARO JENKINS MD This examination was interpreted and the report reviewed and electronically signed by: AMPARO JENKINS MD on Jul 31 2020 12:39PM [facility] DIVISION OF RADIOLOGY * * *Final Report* * * DATE OF EXAM: Jul 31 2020 12:32PM WOX 5352 - XR HIP 3V PELV+ AP/LAT RT / PROCEDURE REASON: Hip injury, right, initial encounter * * * * Physician Interpretation * * * * EXAMINATION: XR HIP 3V PELV+ AP/LAT RT HISTORY: Pt fell last night. Right lateral hip pain. Hip injury, right, initial encounter. TECHNIQUE: XR HIP 3V PELV+ AP/LAT RT Laterality: RIGHT Number of different views (projections): 3 M: XB_1 COMPARISON: Comparison is made to prior hip study dated 03/14/2008 RESULT: Supine radiograph of the pelvis as well as AP and frogleg views of the right hip demonstrate the bony pelvic ring intact. The hips are bilaterally symmetric without fracture or dislocation. Mild degenerative change of both SI joints again noted. No acute bony process is noted. The soft tissues are unremarkable. DIVISION OF RADIOLOGY Provider, [facility] [place] - 07/31/2020 * * *Final Report* * * DATE OF EXAM: Jul 31 2020 12:32PM WOX 5352 - XR HIP 3V PELV+ AP/LAT RT / PROCEDURE REASON: Hip injury, right, initial encounter * * * * Physician Interpretation * * * * EXAMINATION: XR HIP 3V PELV+ AP/LAT RT HISTORY: Pt fell last night. Right lateral hip pain. Hip injury, right, initial encounter. TECHNIQUE: XR HIP 3V PELV+ AP/LAT RT Laterality: RIGHT Number of different views (projections): 3 M: XB_1 COMPARISON: Comparison is made to prior hip study dated 03/14/2008 RESULT: Supine radiograph of the pelvis as well as AP and frogleg views of the right hip demonstrate the bony pelvic ring intact. The hips are bilaterally symmetric without fracture or dislocation. Mild degenerative change of both SI joints again noted. No acute bony process is noted. The soft tissues are unremarkable. IMPRESSION IMPRESSION: Unremarkable hip. No acute fracture or dislocation. Shift Engineer: [facility] Transcribe Date/Time: Jul 31 2020 12:38P Dictated by : AMPARO JENKINS MD This examination was interpreted and the report reviewed and electronically signed by: AMPARO JENKINS MD on Jul 31 2020 12:39PM [facility] XR Shoulder - right 3 Viewso n 07-31-2020 IMPRESSION: No acute fracture or dislocation. Shift Engineer: [facility] Transcribe Date/Time: Jul 31 2020 12:34P Dictated by : AMPARO JENKINS MD This examination was interpreted and the report reviewed and electronically signed by: AMPARO JENKINS MD on Jul 31 2020 12:38PM [facility] DIVISION OF RADIOLOGY * * *Final Report* * * DATE OF EXAM: Jul 31 2020 12:32PM WOX 5253 - XR SHLDR >/=3V AP/EVIE AP/OTHR RT / PROCEDURE REASON: Shoulder injury, right, initial encounter * * * * Physician Interpretation * * * * EXAMINATION: XR SHLDR >/=3V AP/EVIE AP/OTHR RT HISTORY: Pt fell last night. Anterior and proximal right humeral pain. Shoulder injury, right, initial encounter. TECHNIQUE: XR SHLDR >/=3V AP/EVIE AP/OTHR RT Laterality: RIGHT Number of different views (projections): 3 M: XB_1 COMPARISON: Comparison is made to right shoulder dated 04 March 2010 RESULT: 3 views of the right shoulder show no acute osseous, articular or soft tissue process. Joint spaces are preserved. Chronic well-corticated subtle defect near the greater tuberosity may represent sequela of prior trauma to include dislocation. It is unchanged from 2009. DIVISION OF RADIOLOGY Provider, [facility] [place] - 07/31/2020 * * *Final Report* * * DATE OF EXAM: Jul 31 2020 12:32PM WOX 5253 - XR SHLDR >/=3V AP/EVIE AP/OTHR RT / PROCEDURE REASON: Shoulder injury, right, initial encounter * * * * Physician Interpretation * * * * EXAMINATION: XR SHLDR >/=3V AP/EVIE AP/OTHR RT HISTORY: Pt fell last night. Anterior and proximal right humeral pain. Shoulder injury, right, initial encounter. TECHNIQUE: XR SHLDR >/=3V AP/EVIE AP/OTHR RT Laterality: RIGHT Number of different views (projections): 3 M: XB_1 COMPARISON: Comparison is made to right shoulder dated 04 March 2010 RESULT: 3 views of the right shoulder show no acute osseous, articular or soft tissue process. Joint spaces are preserved. Chronic well-corticated subtle defect near the greater tuberosity may represent sequela of prior trauma to include dislocation. It is unchanged from 2009. IMPRESSION IMPRESSION: No acute fracture or dislocation. Shift Engineer: MIAH Transcribe Date/Time: Jul 31 2020 12:34P Dictated by : AMPARO JENKINS MD This examination was interpreted and the report reviewed and electronically signed by: AMPARO JENKINS MD on Jul 31 2020 12:38PM EST [facility] XR Shoulder - right 3 ViewsO rdered By: [facility] Provider on 07-31-2020 [facility] XR Chest PA and Lateralon IMPRESSION: Interval improvement of patchy and nodular opacities in the bilateral lungs. Shift Engineer: MIAH Transcribe Date/Time: Jul 09 2020 12:24P Dictated by : MARTIN PATINO MD This examination was interpreted and the report reviewed and electronically signed by: MARTIN PATINO MD on Jul 09 2020 12:25PM [facility] DIVISION OF RADIOLOGY * * *Final Report* * * DATE OF EXAM: Jul 09 2020 11:04AM WOX 5291 - XR CHEST 2V FRONTAL/LAT / PROCEDURE REASON: multiple diagnoses * * * * Physician Interpretation * * * * EXAMINATION: CHEST RADIOGRAPH (2 VIEW FRONTAL & LATERAL) CLINICAL HISTORY: Pneumonia due to COVID-19 virus Pneumonia due to COVID-19 virus MQ: XC2_6 EXAM DATE/TIME: 07/09/2020 11:04 AM COMPARISON: Chest x-ray on 06/29/2020. RESULT: Lines, tubes, and devices: None. Lungs and pleura: Interval improvement of patchy and nodular opacities in bilateral lungs. No mass lesions seen. No pleural effusions or pneumothorax. Cardiomediastinal silhouette: Stable cardiac silhouette and mediastinal contour. Bones and soft tissues: There are degenerative changes in the spine. DIVISION OF RADIOLOGY Provider, [facility] - 07/09/2020 * * *Final Report* * * DATE OF EXAM: Jul 09 2020 11:04AM WOX 5291 - XR CHEST 2V FRONTAL/LAT / PROCEDURE REASON: multiple diagnoses * * * * Physician Interpretation * * * * EXAMINATION: CHEST RADIOGRAPH (2 VIEW FRONTAL & LATERAL) CLINICAL HISTORY: Pneumonia due to COVID-19 virus Pneumonia due to COVID-19 virus MQ: XC2_6 EXAM DATE/TIME: 07/09/2020 11:04 AM COMPARISON: Chest x-ray on 06/29/2020. RESULT: Lines, tubes, and devices: None. Lungs and pleura: Interval improvement of patchy and nodular opacities in bilateral lungs. No mass lesions seen. No pleural effusions or pneumothorax. Cardiomediastinal silhouette: Stable cardiac silhouette and mediastinal contour. Bones and soft tissues: There are degenerative changes in the spine. IMPRESSION IMPRESSION: Interval improvement of patchy and nodular opacities in the bilateral lungs. Shift Engineer: MIAH Transcribe Date/Time: Jul 09 2020 12:24P Dictated by : MARTIN PATINO MD This examination was interpreted and the report reviewed and electronically signed by: MARTIN PATINO MD on Jul 09 2020 12:25PM [facility] Radiology [facility]ative[facility] and LateralOrder ed By: [facility] Provider on 07-09-2020 [facility] XR Chest PA and Lateralon IMPRESSION: Bilateral patchy pulmonary densities, nonspecific, but possibly pneumonia. Shift Engineer: MIAH Transcribe Date/Time: Jun 29 2020 2:22P Dictated by : VINNY SILVESTRE MD This examination was interpreted and the report reviewed and electronically signed by: VINNY SILVESTRE MD on Jun 29 2020 2:23PM [facility] DIVISION OF RADIOLOGY * * *Final Report* * * DATE OF EXAM: Jun 29 2020 2:17PM WOX 5291 - XR CHEST 2V FRONTAL/LAT / PROCEDURE REASON: Pneumonia of left lung due to infectious organism, unspecified part of lung * * * * Physician Interpretation * * * * EXAMINATION: CHEST RADIOGRAPH (2 VIEW FRONTAL & LATERAL), 06/29/2020 CLINICAL HISTORY: Pneumonia of left lung due to infectious organism, unspecified part of lung MQ: XC2_6 EXAM DATE/TIME: 06/29/2020 2:17 PM COMPARISON: PA and lateral chest 11/15/2013. RESULT: Lines, tubes, and devices: None. Lungs and pleura: Suboptimal inspiration. Bilateral patchy pulmonary densities. No pleural fluid or pneumothorax. Cardiomediastinal silhouette: Normal cardiomediastinal silhouette. Bones and soft tissues: Mild curvature in the lower thoracic spine, convex to the right. Degenerative changes in the spine. Other: Surgical clips in the included abdomen. DIVISION OF RADIOLOGY Provider, [facility] [place] - 06/29/2020 * * *Final Report* * * DATE OF EXAM: Jun 29 2020 2:17PM WOX [id number] - XR CHEST 2V FRONTAL/LAT / PROCEDURE REASON: Pneumonia of left lung due to infectious organism, unspecified part of lung * * * * Physician Interpretation * * * * EXAMINATION: CHEST RADIOGRAPH (2 VIEW FRONTAL & LATERAL), 06/29/2020 CLINICAL HISTORY: Pneumonia of left lung due to infectious organism, unspecified part of lung MQ: [id number] EXAM DATE/TIME: 06/29/2020 2:17 PM COMPARISON: PA and lateral chest 11/15/2013. RESULT: Lines, tubes, and devices: None. Lungs and pleura: Suboptimal inspiration. Bilateral patchy pulmonary densities. No pleural fluid or pneumothorax. Cardiomediastinal silhouette: Normal cardiomediastinal silhouette. Bones and soft tissues: Mild curvature in the lower thoracic spine, convex to the right. Degenerative changes in the spine. Other: Surgical clips in the included abdomen. IMPRESSION IMPRESSION: Bilateral patchy pulmonary densities, nonspecific, but possibly pneumonia. Shift Engineer: MIAH Transcribe Date/Time: Jun 29 2020 2:22P Dictated by : VINNY SILVESTRE MD This examination was interpreted and the report reviewed and electronically signed by: VINNY SILVESTRE MD on Jun 29 2020 2:23PM EST [facility] Radiology Study observation (narrative) [facility] XR Chest PA and LateralOrder ed By: [facility] Provider on 06-29-2020 [facility] CNPNon 05-08-2020 CNPN Telephone (AGSPHWG) CHICA SHAH ([id number]) 1965 F Date Time Provider Department 05/08/20 STEVENSON CABAN AGSP[facility] During your visit today, we recorded the following information about you: Jazmin Santana 05/08/2020 10:46 AM Signed LVM TO CALL BACK AND SCHEDULE NEW PATIENT SPOT WITH DR MEE Santana Allergies As of Date: 05/08/2020 Noted Allergy Reaction LATEX 01/29/2010 5 - Intolerance Comments: burning feeling NSAIDS (NON-STEROIDAL ANTI-INFLAM*12/31/19 14 14 - Other: See Comments Comments: Avoid due to Gastric Bypass Date Reviewed: 03/26/2020 Reviewed by: Azalia Haas LPN - Fully Assessed Reason for Visit: New Patient [172] Prescriptions as of 05/08/2020 Sig: OXYCODONE 5 MG TABLET Take 1 tablet by mouth every * NORTRIPTYLINE 50 MG CAPSULE Take 1 capsule by mouth daily* CELECOXIB 100 MG CAPSULE Take 1 capsule by mouth twice* CYCLOBENZAPRINE 10 MG TABLET Take 1 tablet by mouth twice * DULOXETINE 60 MG CAPSULE,LAURA* Take 1 capsule by mouth once * DICLOFENAC 1 % TOPICAL GEL Apply 2 g to affected area fo* GABAPENTIN 300 MG CAPSULE One capsule in AM. Two capsu* LEVOTHYROXINE 88 MCG TABLET Take 1 tablet by mouth daily * NYSTATIN-TRIAMCINOLO NE 100,00* Apply sparingly to skin area * BENADRYL ALLERGY ORAL Take 2 capsules by mouth jossy* FEXOFENADINE 180 MG TABLET Take 1 tablet by mouth once d* * PEDIATRIC MULTIVITAMIN-IRON C* 1 tablet by OROGASTRIC route * Patient not taking: Reported on 03/26/2020 * BIOTIN ORAL Take by mouth once daily. Problem List As Of Date 05/08/2020 Noted Resolved EDEMA [R60.9] 12/17/2007 12/22/2008 Routine general medical examination at [facility]*12/17/2007 02/28/2012 Unspecified essential hypertension [I10] 12/17/2007 06/12/2012 Obesity, unspecified [E66.9] 12/17/2007 07/25/2012 DYSMETABOLIC SYNDROME X [E88.81] 03/14/2008 PAIN HIP JOINT [M25.559] 03/14/2008 04/23/2015 More... Hypothyroidism [E03.9] 06/10/2008 More... Mgrn Wo Aura w [facility] Mgrn [G43.019] 09/02/2008 01/29/2010 PAIN BACK, LOW [M54.5] 12/22/2008 More... 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 Diabetes mellitus type 2 in obese [E11.69, E66.*07/20/2011 06/12/2012 More... Hyperlipidemia [E78.5] 07/20/2011 Fatty liver [K76.0] 07/20/2011 Cholelithiasis [K80.20] 07/20/2011 11/09/2018 PVC (premature ventricular contraction) [I49.3] 07/20/2011 04/23/2015 Gastric bypass status for obesity [Z98.84] More... 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 myelopath*05/19/2015 02/12/2018 Displaced fracture of base of fifth metacarpal *02/11/2016 12/08/2016 Insomnia due to medical condition [G47.01] 08/10/2018 Obesity, Class II, BMI 35-39.9 [E66.9] 11/09/2018 Encounter Status:Closed by JAZMIN SANTANA on 05/08/20 Normal [facility] 04-16-2020 CNCO Letter Text Normal [facility] 03-26-2020 CNCO Letter Text Normal [facility] Vital Signs Date Time Vital Sign Value Performing Clinician Facility 11-20-2024 08:37-0400 Body mass index (BMI) [Ratio] 27.34 kg/m2 Jabari Murillo MD Work Phone: [facility] 11-20-2024 08:37-0400 Body temperature 97.59 [degF] Jabari Murillo MD Work Phone: [facility] 11-20-2024 08:37-0400 Body weight 67.8 kg Jabari Murillo MD Work Phone: [facility] 11-20-2024 08:37-0400 Diastolic blood pressure 72 mm[Hg] Jabari Murillo MD Work Phone: [facility] 11-20-2024 08:37-0400 Heart rate 80 /min Jabari Murillo MD Work Phone: [facility] 11-20-2024 08:37-0400 Respiratory rate 16 /min Jabari Murillo MD Work Phone: [facility] 11-20-2024 08:37-0400 Systolic blood pressure 122 mm[Hg] Jabari Murillo MD Work Phone: [facility] 11-01-2024 08:06-0400 Body mass index (BMI) [Ratio] 27.3 kg/m2 Cecilia Whitlock MRI MANAGER.BOBTAIL DRIVER Work Phone: [facility] 11-01-2024 08:06-0400 Body temperature 97.9 [degF] Cecilia RaymondChad MRI MANAGER.BOBTAIL DRIVER Work Phone: [facility] 11-01-2024 08:06-0400 Body weight 67.7 kg Cecilia Whitlock MRI MANAGER.BOBTAIL DRIVER Work Phone: [facility] 11-01-2024 08:06-0400 Diastolic blood pressure 78 mm[Hg] Cecilia RaymondChad MRI MANAGER.BOBTAIL DRIVER Work Phone: [facility] 11-01-2024 08:06-0400 Heart rate 100 /min Cecilia RaymondChad MRI MANAGER.BOBTAIL DRIVER Work Phone: [facility] 11-01-2024 08:06-0400 Respiratory rate 14 /min Cecilia RaymondChad MRI MANAGER.BOBTAIL DRIVER Work Phone: [facility] 11-01-2024 08:06-0400 SaO2% (BldA) [Mass fraction] 100 % Cecilia Chad MRI MANAGER.BOBTAIL DRIVER Work Phone: [facility] 11-01-2024 08:06-0400 Systolic blood pressure 120 mm[Hg] Cecilia Chad MRI MANAGER.BOBTAIL DRIVER Work Phone: [facility] 05-21-2024 08:02-0400 Body mass index (BMI) [Ratio] 26.69 kg/m2 Cecilia Chad MRI MANAGER.BOBTAIL DRIVER Work Phone: [facility] 05-21-2024 08:02-0400 Body weight 66.2 kg Cecilia RaymondChad MRI MANAGER.BOBTAIL DRIVER Work Phone: [facility] 05-21-2024 08:02-0400 Diastolic blood pressure 72 mm[Hg] Cecilia Chad MRI MANAGER.BOBTAIL DRIVER Work Phone: [facility] 05-21-2024 08:02-0400 Heart rate 83 /min Cecilia ArmentaChad MRI MANAGER.BOBTAIL DRIVER Work Phone: [facility] 05-21-2024 08:02-0400 Respiratory rate 16 /min Cecilia RaymondChad MRI MANAGER.BOBTAIL DRIVER Work Phone: [facility] 05-21-2024 08:02-0400 SaO2% (BldA) [Mass fraction] 100 % Cecilia RaymondChad MRI MANAGER.BOBTAIL DRIVER Work Phone: [facility] 05-21-2024 08:02-0400 Systolic blood pressure 106 mm[Hg] Cecilia Chad MRI MANAGER.BOBTAIL DRIVER Work Phone: [facility] 04-23-2024 12:05-0400 Diastolic blood pressure 106 mm[Hg] Cecilia Chad MRI MANAGER.BOBTAIL DRIVER Work Phone: [facility] Comment on above: bp evie average 04-23-2024 12:05-0400 Heart rate 92 /min Cecilia ArmentaChad MRI MANAGER.BOBTAIL DRIVER Work Phone: [facility] 04-23-2024 12:05-0400 Systolic blood pressure 152 mm[Hg] Cecilia Chad MRI MANAGER.BOBTAIL DRIVER Work Phone: [facility] Comment on above: bp evie average 04-23-2024 11:27-0400 Body mass index (BMI) [Ratio] 27.06 kg/m2 Cecilia Chad MRI MANAGER.BOBTAIL DRIVER Work Phone: [facility] 04-23-2024 11:27-0400 Body weight 67.1 kg Cecliia Chad MRI MANAGER.BOBTAIL DRIVER Work Phone: [facility] 04-23-2024 11:27-0400 Respiratory rate 16 /min Cecilia Chad MRI MANAGER.BOBTAIL DRIVER Work Phone: [facility] 03-13-2024 12:44-0400 Body height 157.5 cm Alycia Rojas MRI MANAGER.BOBTAIL DRIVER Work Phone: [facility] 03-13-2024 12:44-0400 Body mass index (BMI) [Ratio] 27.42 kg/m2 Alycia Rojas MRI MANAGER.BOBTAIL DRIVER Work Phone: [facility] 03-13-2024 12:44-0400 Body weight 68 kg Alycia Rojas MRI MANAGER.BOBTAIL DRIVER Work Phone: [facility] 02-12-2024 08:50-0400 Diastolic blood pressure 90 mm[Hg] Cecilia Chad MRI MANAGER.BOBTAIL DRIVER Work Phone: [facility] 02-12-2024 08:50-0400 Systolic blood pressure 138 mm[Hg] Cecilia Chad MRI MANAGER.BOBTAIL DRIVER Work Phone: [facility] 02-12-2024 08:14-0400 Body mass index (BMI) [Ratio] 27.8 kg/m2 Cecilia Chad MRI MANAGER.BOBTAIL DRIVER Work Phone: [facility] 02-12-2024 08:14-0400 Body weight 68.95 kg Cecilia Chad MRI MANAGER.BOBTAIL DRIVER Work Phone: [facility] 02-12-2024 08:14-0400 Heart rate 98 /min Cecilia Chad MRI MANAGER.BOBTAIL DRIVER Work Phone: [facility] 02-12-2024 08:14-0400 Respiratory rate 14 /min Cecilia Chad MRI MANAGER.BOBTAIL DRIVER Work Phone: [facility] 02-12-2024 08:14-0400 SaO2% (BldA) [Mass fraction] 100 % Cecilia Chad MRI MANAGER.BOBTAIL DRIVER Work Phone: [facility] 01-08-2024 08:40-0400 Body mass index (BMI) [Ratio] 28.17 kg/m2 Marimar Villar MRI MANAGER.ELECTROLYSIS INVESTIGATOR Work Phone: [facility] 01-08-2024 08:40-0400 Body weight 69.85 kg Marimar Villar MRI MANAGER.ELECTROLYSIS INVESTIGATOR Work Phone: [facility] 01-08-2024 08:40-0400 Diastolic blood pressure 74 mm[Hg] Marimar Villar MRI MANAGER.ELECTROLYSIS INVESTIGATOR Work Phone: [facility] 01-08-2024 08:40-0400 Heart rate 79 /min Marimar Villar MRI MANAGER.ELECTROLYSIS INVESTIGATOR Work Phone: [facility] 01-08-2024 08:40-0400 Respiratory rate 16 /min Marimar Villar MRI MANAGER.ELECTROLYSIS INVESTIGATOR Work Phone: [facility] 01-08-2024 08:40-0400 Systolic blood pressure 113 mm[Hg] Marimar Villar MRI MANAGER.ELECTROLYSIS INVESTIGATOR Work Phone: [facility] 12-06-2023 08:32-0400 Body weight 70.76 kg Cecilia Chad MRI MANAGER.BOBTAIL DRIVER Work Phone: [facility] 12-06-2023 08:32-0400 Diastolic blood pressure 90 mm[Hg] Cecilia Chad MRI MANAGER.BOBTAIL DRIVER Work Phone: [facility] 12-06-2023 08:32-0400 Heart rate 86 /min Cecilia Chad MRI MANAGER.BOBTAIL DRIVER Work Phone: [facility] 12-06-2023 08:32-0400 Respiratory rate 14 /min Cecilia Chad MRI MANAGER.BOBTAIL DRIVER Work Phone: [facility] 12-06-2023 08:32-0400 SaO2% (BldA) [Mass fraction] 97 % Cecilia Whitlock MRI MANAGER.BOBTAIL DRIVER Work Phone: [facility] 12-06-2023 08:32-0400 Systolic blood pressure 132 mm[Hg] Cecilia RaymondChad MRI MANAGER.BOBTAIL DRIVER Work Phone: [facility] 11-06-2023 09:52-0400 Diastolic blood pressure 98 mm[Hg] Cecilia RaymondChad MRI MANAGER.BOBTAIL DRIVER Work Phone: [facility] 11-06-2023 09:52-0400 Heart rate 94 /min Cecilia Whitlock MRI MANAGER.BOBTAIL DRIVER Work Phone: [facility] 11-06-2023 09:52-0400 Systolic blood pressure 147 mm[Hg] Cecilia Whitlock MRI MANAGER.BOBTAIL DRIVER Work Phone: [facility] 11-06-2023 09:26-0400 Body weight 70.31 kg Cecilia Whitlock MRI MANAGER.BOBTAIL DRIVER Work Phone: [facility] 11-06-2023 09:26-0400 Respiratory rate 14 /min Cecilia Whitlock MRI MANAGER.BOBTAIL DRIVER Work Phone: [facility] 08-03-2023 10:21-0500 Diastolic blood pressure 104 mm[Hg] Jabari Murillo MD Work Phone: [facility] 08-03-2023 10:21-0500 Systolic blood pressure 147 mm[Hg] Jabari Murillo MD Work Phone: [facility] 08-03-2023 10:11-0500 Body temperature 98.1 [degF] Jabari Murillo MD Work Phone: [facility] 08-03-2023 10:11-0500 Body weight 71.76 kg Jabari Murillo MD Work Phone: [facility] 08-03-2023 10:11-0500 Heart rate 113 /min Jabari Murillo MD Work Phone: [facility] 08-03-2023 10:11-0500 Respiratory rate 18 /min Jabari Murillo MD Work Phone: [facility] 08-03-2023 10:11-0500 SaO2% (BldA) [Mass fraction] 98 % Jabari Murillo MD Work Phone: [facility] 06-20-2023 10:54-0400 Diastolic blood pressure 127 mm[Hg] Cecilia Older MRI MANAGER.BOBTAIL DRIVER Work Phone: [facility] 06-20-2023 10:54-0400 Heart rate 95 /min Cecilia Older MRI MANAGER.BOBTAIL DRIVER Work Phone: [facility] 06-20-2023 10:54-0400 Systolic blood pressure 171 mm[Hg] Cecilia Older MRI MANAGER.BOBTAIL DRIVER Work Phone: [facility] 06-20-2023 10:45-0400 Body temperature 98.4 [degF] Cecilia Older MRI MANAGER.BOBTAIL DRIVER Work Phone: [facility] 06-20-2023 10:45-0400 Body weight 71.22 kg Cecilia Older MRI MANAGER.BOBTAIL DRIVER Work Phone: [facility] 06-20-2023 10:45-0400 Respiratory rate 14 /min Cecilia Older MRI MANAGER.BOBTAIL DRIVER Work Phone: [facility] 06-07-2023 08:16-0400 Diastolic blood pressure 93 mm[Hg] Yrn Soni MD Work Phone: [facility] 06-07-2023 08:16-0400 Heart rate 74 /min Yrn Soni MD Work Phone: [facility] 06-07-2023 08:16-0400 Systolic blood pressure 130 mm[Hg] Yrn Soni MD Work Phone: [facility] 04-04-2023 08:50-0400 Diastolic blood pressure 100 mm[Hg] Cecilia Older MRI MANAGER.BOBTAIL DRIVER Work Phone: [facility] 04-04-2023 08:50-0400 Systolic blood pressure 148 mm[Hg] Cecilia Older MRI MANAGER.BOBTAIL DRIVER Work Phone: [facility] 04-04-2023 08:33-0400 Body weight 73.94 kg Cecilia Older MRI MANAGER.BOBTAIL DRIVER Work Phone: [facility] 04-04-2023 08:33-0400 Heart rate 87 /min Cecilia Older MRI MANAGER.BOBTAIL DRIVER Work Phone: [facility] 04-04-2023 08:33-0400 Respiratory rate 14 /min Cecilia Older MRI MANAGER.BOBTAIL DRIVER Work Phone: [facility] 11-23-2022 08:06-0400 Body weight 77.56 kg Jabari Murillo MD Work Phone: [facility] 11-23-2022 08:06-0400 Diastolic blood pressure 82 mm[Hg] Jabari Murillo MD Work Phone: [facility] 11-23-2022 08:06-0400 Heart rate 100 /min Jabari Murillo MD Work Phone: [facility] 11-23-2022 08:06-0400 Respiratory rate 16 /min Jabari Murillo MD Work Phone: [facility] 11-23-2022 08:06-0400 Systolic blood pressure 120 mm[Hg] Jabari Murillo MD Work Phone: [facility] 10-24-2022 13:49-0500 Body weight 77.56 kg Jabari Murillo MD Work Phone: [facility] 10-24-2022 13:49-0500 Diastolic blood pressure 82 mm[Hg] Jabari Murillo MD Work Phone: [facility] 10-24-2022 13:49-0500 Heart rate 88 /min Jabari Murillo MD Work Phone: [facility] 10-24-2022 13:49-0500 Respiratory rate 16 /min Jabari Murillo MD Work Phone: [facility] 10-24-2022 13:49-0500 Systolic blood pressure 130 mm[Hg] Jabari Murillo MD Work Phone: [facility] 09-16-2022 13:36-0500 Diastolic Blood Pressure Non-Invasive 86 1 AUDELIA SUPPAN DPM [facility] 09-16-2022 13:36-0500 Heart rate 85 /min AUDELIA SUPPAN DPM [facility] 09-16-2022 13:36-0500 Respiratory rate 16 /min AUDELIA SUPPAN DPM [facility] 09-16-2022 13:36-0500 Systolic Blood Pressure Non-Invasive 125 1 AUDELIA SUPPAN DPM [facility] 09-16-2022 13:23-0500 Diastolic Blood Pressure Non-Invasive 82 1 AUDELIA SUPPAN DPM [facility] 09-16-2022 13:23-0500 Heart rate 89 /min AUDELIA SUPPAN DPM [facility] 09-16-2022 13:23-0500 Respiratory rate 17 /min AUDELIA SUPPAN DPM [facility] 09-16-2022 13:23-0500 Systolic Blood Pressure Non-Invasive 113 1 AUDELIA SUPPAN DPM [facility] 09-16-2022 13:20-0500 Respiratory Rate - Anes 0 br/min AUDELIA SUPPAN DPM [facility] 09-16-2022 13:15-0500 Diastolic Blood Pressure Non-Invasive 63 1 AUDELIA SUPPAN DPM [facility] 09-16-2022 13:15-0500 Heart rate 90 /min AUDELIA SUPPAN DPM [facility] 09-16-2022 13:15-0500 Respiratory Rate - Anes 12 br/min AUDELIA SUPPAN DPM [facility] 09-16-2022 13:15-0500 Systolic Blood Pressure Non-Invasive 88 1 AUDELIA SUPPAN DPM [facility] 09-16-2022 13:10-0500 Respiratory Rate - Anes 13 br/min AUDELIA SUPPAN DPM [facility] 09-16-2022 11:11-0500 Body height 157.5 cm AUDELIA SUPPAN DPM [facility] 09-16-2022 11:11-0500 Body weight 78.8 kg AUDELIA SUPPAN DPM [facility] 09-16-2022 11:09-0500 Body temperature 97.34 [degF] AUDELIA SUPPAN DPM [facility] 09-16-2022 11:09-0500 Heart rate 95 /min AUDELIA SUPPAN DPM [facility] 09-16-2022 11:09-0500 Respiratory rate 18 /min AUDELIA SUPPAN DPM [facility] 09-06-2022 11:31-0500 Blood Pressure Cuff Size AUDELIA SUPPAN DPM [facility] 09-06-2022 11:31-0500 Blood Pressure Location AUDELIA SUPPAN DPM [facility] 09-06-2022 11:31-0500 Blood Pressure Method AUDELIA SUPPAN DPM [facility] 09-06-2022 11:31-0500 Body height 157.5 cm AUDELIA SUPPAN DPM [facility] 09-06-2022 11:31-0500 Body weight 78.8 kg AUDELIA SUPPAN DPM [facility] 09-06-2022 11:31-0500 Body weight 31.77 kg/m2 AUDELIA SUPPAN DPM [facility] 09-06-2022 11:31-0500 Diastolic Blood Pressure Non-Invasive 90 1 AUDELIA SUPPAN DPM [facility] 09-06-2022 11:31-0500 Heart rate 104 /min AUDELIA SUPPAN DPM [facility] 09-06-2022 11:31-0500 Systolic Blood Pressure Non-Invasive 158 1 AUDELIA SUPPAN DPM [facility] 06-13-2022 13:23-0400 Diastolic blood pressure 84 mm[Hg] Cecilia Older MRI MANAGER.BOBTAIL DRIVER Work Phone: [facility] 06-13-2022 13:23-0400 Systolic blood pressure 122 mm[Hg] Cecilia Older MRI MANAGER.BOBTAIL DRIVER Work Phone: [facility] 06-13-2022 13:04-0400 Body weight 81.19 kg Cecilia Older MRI MANAGER.BOBTAIL DRIVER Work Phone: [facility] 06-13-2022 13:04-0400 Heart rate 94 /min Cecilia Older MRI MANAGER.BOBTAIL DRIVER Work Phone: [facility] 06-13-2022 13:04-0400 Respiratory rate 18 /min Cecilia Older MRI MANAGER.BOBTAIL DRIVER Work Phone: [facility] 03-14-2022 08:16-0400 Body height 157.5 cm Kera Richmond MD Work Phone: [facility] 03-14-2022 08:16-0400 Body weight 79.83 kg Kera Richmond MD Work Phone: [facility] 01-06-2022 10:12-0400 Body temperature 97.81 [degF] Filomena Praisler-Wood MRI MANAGER.BOBTAIL DRIVER Work Phone: [facility] 01-06-2022 10:12-0400 Body weight 82.28 kg Filomena Praisler-Wood MRI MANAGER.BOBTAIL DRIVER Work Phone: [facility] 01-06-2022 10:12-0400 Diastolic blood pressure 84 mm[Hg] Filomena Praisler-Wood MRI MANAGER.BOBTAIL DRIVER Work Phone: [facility] 01-06-2022 10:12-0400 Heart rate 90 /min Filomena Praisler-Wood MRI MANAGER.BOBTAIL DRIVER Work Phone: [facility] 01-06-2022 10:12-0400 Respiratory rate 18 /min Filomena Praisler-Wood MRI MANAGER.BOBTAIL DRIVER Work Phone: [facility] 01-06-2022 10:12-0400 SaO2% (BldA) [Mass fraction] 98 % Filomena Praisler-Wood MRI MANAGER.BOBTAIL DRIVER Work Phone: [facility] 01-06-2022 10:12-0400 Systolic blood pressure 136 mm[Hg] Filomena Praisler-Wood MRI MANAGER.BOBTAIL DRIVER Work Phone: [facility] 12-03-2021 08:18-0400 Body temperature 97 [degF] Jabari Murillo MD Work Phone: [facility] 12-03-2021 08:18-0400 Body weight 81.65 kg Jabari Murillo MD Work Phone: [facility] 12-03-2021 08:18-0400 Diastolic blood pressure 68 mm[Hg] Jabari Murillo MD Work Phone: [facility] 12-03-2021 08:18-0400 Heart rate 72 /min Jabari Murillo MD Work Phone: [facility] 12-03-2021 08:18-0400 Respiratory rate 18 /min Jabari Murillo MD Work Phone: [facility] 12-03-2021 08:18-0400 SaO2% (BldA) [Mass fraction] 100 % Jabari Murillo MD Work Phone: [facility] 12-03-2021 08:18-0400 Systolic blood pressure 122 mm[Hg] Jabari Murillo MD Work Phone: [facility] Encounters Encounter Date Encounter Type Care Provider Facility Start: 07-04-2025 ambulatory Jabari Arce ty:[facility] [place] [place] Start: 06-30-2025 ambulatory Jabari Arce ty:[facility] Start: 05-15-2025 End: 05-15-2025 ambulatory Jabari Murillo Facility:[facility] Start: 05-12-2025 End: 05-12-2025 ambulatory CECILIA WHITLOCK Facility:[facility] Start: 05-12-2025 End: 05-12-2025 ambulatory Cecilia Whitlock GEOSPATIAL SCIENTIST Facility:[facility] Start: 04-14-2025 End: 04-15-2025 Refill Jabari Murillo MD Work Phone: [facility] Comment on above: Refill Request Start: 03-20-2025 End: 03-20-[address] Jabari Murillo MD Work Phone: -Physical Therapy Start: 03-20-2025 End: 03-20-[address] Hemalatha Negro MD -Physical Therapy Work Phone: Start: 02-25-2025 End: 02-25-2025 Refill Jabari Murillo MD Work Phone: [facility] Comment on above: Refill Request Start: 02-13-2025 End: 02-14-2025 Refill Jabari Murillo MD Work Phone: [address] [place] [address] Comment on above: Refill Request Start: 01-22-2025 End: 01-22-2025 Refill Jabari Murillo MD Work Phone: Internal Medicine [place] Comment on above: Refill Request Start: 12-23-2024 End: 12-23-2024 Refill Jabari Murillo MD Work Phone: Internal Medicine [place] Comment on above: Refill Request Start: 12-03-2024 End: 12-03-2024 ambulatory JABARI MURILLO Facility:[facility] Start: 11-26-2024 End: 12-26-2024 Telephone encounter Jabari Murillo MD Work Phone: Internal Medicine [place] Comment on above: US of heart approved Start: 11-23-2024 End: 11-23-2024 Follow-up encounter Jabari Murillo MD Work Phone: Internal Medicine [place] Start: 11-20-2024 End: 11-20-2024 ambulatory JABARI MURILLO Facility:[facility] Start: 11-20-2024 End: 11-20-2024 Patient encounter procedure Jabari Murillo MD Work Phone: Internal Medicine [place] Comment on above: Syncope, unspecified syncope type (Primary Dx); Fibromyalgia; Screening for depression; Encounter for screening examination for other mental health and behavioral disorders; Contusion of face, initial encounter; 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); Vitamin D deficiency; Primary hypertension; Hypothyroidism, unspecified type; Vitamin B12 deficiency; Ascending aorta dilation; Need for COVID-19 vaccine; Gastric bypass status for obesity Start: 11-01-2024 End: 11-01-2024 Refill Cecilia Whitlock APRN.BOBTAIL DRIVER Work Phone: Internal Medicine [place] Comment on above: Med Change Request Start: 11-01-2024 End: 11-01-2024 ambulatory CECILIA WHITLOCK Facility:[facility] Start: 11-01-2024 End: 11-01-2024 Patient encounter procedure Cecilia Whitlock MRI MANAGER.BOBTAIL DRIVER Work Phone: Internal Medicine [place] Comment on above: Acute non-recurrent maxillary sinusitis (Primary Dx); Acute cough; Hypothyroidism, unspecified type; Diabetes mellitus type 2 in obese (HCC) Start: 10-29-2024 End: 10-29-2024 Refill Jabari Murillo MD Work Phone: [address] [place] [address] Comment on above: Refill Request Start: 09-11-2024 End: 09-11-2024 ambulatory Jabari Murillo Facility:[facility] Start: 08-30-2024 End: 08-30-2024 Refill Jabari Murillo MD Work Phone: Internal [facility] Comment on above: Refill Request Start: 08-08-2024 End: 08-08-2024 ambulatory CECILIA WHITLOCK Facility:[facility] Start: 08-08-2024 End: 08-08-2024 Subsequent hospital visit by physician Screen Mammo [facility] Comment on above: Encounter for screen ing mammogram for breast cancer [Z12.31] Start: 07-02-2024 End: 07-03-2024 Refill Jabari Murillo MD Work Phone: [facility] Comment on above: Refill Request Start: 05-21-2024 End: 05-21-2024 Patient encounter procedure Cecilia Whitlock MRI MANAGER.BOBTAIL DRIVER Work Phone: Internal [facility] Comment on above: Primary hypertension (Primary Dx); Encounter for screening mammogram for breast cancer; Encounter for immunization Start: 04-30-2024 End: 05-06-2024 Telephone encounter Jabari Murillo MD Work Phone: Internal [facility] Comment on above: Trulicity 4.5 Prior Auth Start: 04-29-2024 End: 04-30-2024 Refill Jabari Murillo MD Work Phone: Internal Medicine [place] Comment on above: Refill Request Start: 04-23-2024 End: 04-23-2024 Patient encounter procedure Cecilia Whitlock MRI MANAGER.BOBTAIL DRIVER Work Phone: Internal Medicine [place] Comment on above: Primary hypertension (Primary Dx); 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) (HCC) Start: 04-09-2024 End: 04-09-2024 Telephone encounter Lara Rosales MRI MANAGER.BOBTAIL DRIVER Work Phone: Neurology Comment on above: Outpatient Testing Denial Letter <9> Start: 04-02-2024 Refill Jabari blake MD Work Phone: Internal Medicine [place] Comment on above: Refill Request Start: 03-25-2024 End: 03-25-2024 ambulatory LIZ Dejesus [facility] Start: 03-13-2024 End: 03-13-2024 Patient encounter procedure Alycia Rojas MRI MANAGER.BOBTAIL DRIVER Work Phone: [facility] [place] Comment on above: Cervicalgia (Primary Dx); Cervical radiculopathy; DDD (degenerative disc disease), cervical Start: 03-01-2024 Refill Jabari blake MD Work Phone: Internal Medicine [place] Start: 02-26-2024 Telephone encounter Chas martin MD Work Phone: Pain Management Comment on above: Appointment Start: 02-14-2024 End: 02-14-2024 ambulatory Emg 400) Neurology Start: 02-14-2024 End: 02-14-2024 Patient encounter procedure Emg 2 Neur [facility] (Max Weight: 400) Neurology Start: 02-12-2024 End: 02-12-2024 Patient encounter procedure Cecilia Whitlock MRI MANAGER.BOBTAIL DRIVER Work Phone: Internal Medicine [place] Comment on above: Cervicalgia (Primary Dx); Injury of toe on right foot, initial encounter; Fibromyalgia; Great toe pain, right Refill Request Start: 02-12-2024 End: 02-12-2024 Subsequent hospital visit by physician Xr [facility] [place] Work Phone: Radiology Comment on above: Injury of toe on rig ht foot, initial encounter [S99.921A] Start: 01-08-2024 End: 01-08-2024 Office outpatient visit 25 minutes Marimar Villar MRI MANAGER.ELECTROLYSIS INVESTIGATOR Work Phone: Internal Medicine [place] Comment on above: Left arm numbness (P rimary Dx); Primary hypertension; Cervicalgia; Numbness and tingling of left upper extremity Start: 12-18-2023 Telephone encounter Jabari townsend MD Work Phone: Family Medicine [place] Comment on above: Medication Problem ( Trulicity 1.5 mg) Start: 12-13-2023 Refill Jabari blake MD Work Phone: Internal Medicine [place] Comment on above: Rx Refills Start: 12-06-2023 End: 12-06-2023 Patient encounter procedure Cecilia Whitlock APRN.BOBTAIL DRIVER Work Phone: Internal Medicine [place] Comment on above: Primary hypertension (Primary Dx); Numbness and tingling of left upper extremity; Cervicalgia Start: 12-05-2023 End: 12-05-2023 Subsequent hospital visit by physician Xr [facility] [place] Work Phone: Radiology Comment on above: M54.12 Start: 11-21-2023 Telephone encounter Jabari townsend MD Work Phone: Internal Medicine [place] Comment on above: Medication Problem Start: 11-07-2023 ambulatory Lara De La Garza i, APRN.BOBTAIL DRIVER Work Phone: Neurology Comment on above: Tilt table test with cardiology Start: 11-06-2023 End: 11-06-2023 Patient encounter procedure Cecilia Whitlock APRN.BOBTAIL DRIVER Work Phone: Internal Medicine [place] Comment on above: Primary hypertension (Primary Dx); Nasal pain; Fibromyalgia; Cervicalgia; Chronic low back pain, unspecified back pain laterality, unspecified whether sciatica present; Syncope, unspecified syncope type; Hypothyroidism, unspecified type; Elevated alkaline phosphatase level; Hyperlipidemia, unspecified hyperlipidemia type Start: 11-03-2023 Orders Only Lara De La Garza i, APRN.BOBTAIL DRIVER Work Phone: Neurology Comment on above: Transient loss of co nsciousness (Primary Dx); Orthostatic intolerance Tilt table test with cardiology Start: 10-30-2023 Refill Jabari blake MD Work Phone: Internal Medicine [place] Comment on above: Refill Request Start: 10-17-2023 Refill Jabari blake MD Work Phone: Family [facility] Comment on above: Refill Request Start: 10-04-2023 Refill Jabari blake MD Work Phone: Family [facility] [place] Comment on above: Refill Request Start: 09-20-2023 Telephone encounter Jabari townsend MD Work Phone: Internal Medicine [place] Comment on above: Medication Request Start: 08-03-2023 End: 08-03-2023 Patient encounter procedure Jabari Murillo MD Work Phone: Internal Medicine [place] Comment on above: Syncope, unspecified syncope type (Primary Dx); Tachycardia; Elevated blood pressure reading; Cellulitis of back except buttock; Need for COVID-19 vaccine; Hypothyroidism, unspecified type; Diabetes mellitus type 2 in obese (HCC) Start: 06-28-2023 End: 06-28-2023 Subsequent hospital visit by physician [facility] [place] [place] [facility] Work Phone: Radiology Comment on above: Fatty liver [K76.0] Start: 06-21-2023 ambulatory Cecilia Older MRI MANAGER .BOBTAIL DRIVER Work Phone: Internal Medicine [place] Comment on above: lab results Start: 06-21-2023 E-mail encounter isabelle m caregiver Cecilia Older MRI MANAGER.BOBTAIL DRIVER Work Phone: [facility] Start: 06-20-2023 End: 06-20-2023 Patient encounter procedure Cecilia Older MRI MANAGER.BOBTAIL DRIVER Work Phone: Internal Medicine [place] Comment on above: Rash and nonspecific skin eruption (Primary Dx); Cellulitis, unspecified cellulitis site; Elevated blood pressure reading; Fatty liver Start: 06-07-2023 End: 06-07-2023 Patient encounter procedure Yrn Soni MD Work Phone: Pain Management Comment on above: Fibromyalgia (Primar y Dx); Cervicalgia; Chronic low back pain, unspecified back pain laterality, unspecified whether sciatica present Start: 06-06-2023 Telephone encounter Yrn valle MD Work Phone: Pain Management Comment on above: Appointment Start: 05-19-2023 E-mail encounter isabelle wilson caregiver [facility] Provider [facility] Start: 05-19-2023 Patient encounter procedure [facility] Pain Management Comment on above: Instructions for [facility] Appointment Start: 05-08-2023 Telephone encounter Jabari townsend MD Work Phone: Internal Medicine [place] Comment on above: Covid Positive Start: 05-08-2023 End: 05-08-2023 ambulatory Yani Charlton MRI MANAGER.BOBTAIL DRIVER Work Phone: Internal Medicine [place] Comment on above: COVID (Primary Dx); Diabetes mellitus type 2 in obese (HCC) Start: 05-08-2023 End: 05-08-2023 Telemedicine consultation with patient Yani Charlton MRI MANAGER.BOBTAIL DRIVER Work Phone: [facility] Start: 05-05-2023 End: 05-05-2023 ambulatory Rohit Kumar MRI MANAGER.BOBTAIL DRIVER Work Phone: Telemedicine Comment on above: Treatment not availa ble (Primary Dx) Start: 05-05-2023 End: 05-05-2023 ambulatory Debby Maxwell MRI MANAGER.BOBTAIL DRIVER Work Phone: Telemedicine Comment on above: Treatment not availa ble (Primary Dx) Start: 04-27-2023 End: 04-27-2023 Patient encounter procedure Jabari Murillo MD Work Phone: Internal Medicine [place] Comment on above: Diabetes mellitus ty pe 2 in obese (HCC) (Primary Dx); Encounter for screening mammogram for malignant neoplasm of breast; Syncope, unspecified syncope type; Cervicalgia; Chronic low back pain, unspecified back pain laterality, unspecified whether sciatica present; Fibromyalgia Start: 04-17-2023 Telephone encounter Jabari townsend MD Work Phone: Family Medicine [place] Comment on above: Patient Question Start: 04-04-2023 Telephone encounter Jabari townsend MD Work Phone: Internal Medicine [place] Comment on above: Insurance Authorizat ion Start: 04-04-2023 End: 04-04-2023 Patient encounter procedure Cecilia Barry MRI MANAGER.BOBTAIL DRIVER Work Phone: Internal Medicine [place] Comment on above: Cervicalgia (Primary Dx); Chronic low back pain, unspecified back pain laterality, unspecified whether sciatica present; Vitamin B12 deficiency; Vitamin D deficiency; Fibromyalgia Start: 03-01-2023 Orders Only Laratai De La Garza i MRI MANAGER.BOBTAIL DRIVER Work Phone: Neurology Comment on above: Orthostatic intolera nce (Primary Dx); Neck pain Start: 02-15-2023 Refill Jabari blake MD Work Phone: Internal Medicine [place] Comment on above: Refill Request Start: 12-16-2022 ambulatory [facility] Provider Internal M edicine [place] Comment on above: results Start: 12-16-2022 E-mail encounter fro m caregiver [facility] Start: 12-14-2022 End: 12-14-2022 Patient encounter procedure Neur [facility] Work Phone: Neurology Comment on above: Syncope, unspecified syncope type Start: 11-25-2022 Orders Only Cecilia Barry APRN .BOBTAIL DRIVER Work Phone: Internal Medicine [place] Comment on above: Syncope, unspecified syncope type (Primary Dx) Start: 11-23-2022 End: 11-23-2022 Patient encounter procedure Jabari Murillo MD Work Phone: Internal Medicine [place] Comment on above: Syncope, unspecified syncope type (Primary Dx); Fibromyalgia; Cervicalgia; Chronic low back pain, unspecified back pain laterality, unspecified whether sciatica present; Insomnia due to medical condition Start: 11-17-2022 Telephone encounter Jabari townsend MD Work Phone: Internal Medicine [place] Comment on above: patient update with happenings; Patient Question Start: 10-24-2022 End: 10-24-2022 Patient encounter procedure Jabari Murillo MD Work Phone: Internal Medicine [place] Comment on above: Syncope, unspecified syncope type (Primary Dx); Hypothyroidism, unspecified type; Fibromyalgia; Hyperlipidemia, unspecified hyperlipidemia type; Diabetes mellitus type 2 in obese (HCC); Cervicalgia; Chronic low back pain, unspecified back pain laterality, unspecified whether sciatica present; Insomnia due to medical condition; Intertrigo; Palpitations Start: 09-29-2022 Telephone encounter Jabari townsend MD Work Phone: Internal Medicine [place] Comment on above: Insurance Authorizat ion Start: 09-16-2022 End: 09-16-2022 ambulatory AUDELIA N SUPPAN DPM Facility:B Start: 09-16-2022 End: 09-16-2022 SAME DAY STAY AUDELIA N SUPPAN DPM [facility] Start: 09-06-2022 End: 09-07-2022 ambulatory AUDELIA N SUPPAN DPM Facility:[facility] Start: 09-06-2022 End: 09-06-2022 Admission to establishment AUDELIA N SUPPAN DPM [facility] Start: 09-01-2022 Refill Cecilia Older MRI MANAGER .BOBTAIL DRIVER Work Phone: Internal Medicine [place] Comment on above: Refill Request Start: 08-30-2022 End: 08-31-2022 ambulatory AUDELIA N SUPPAN DPM Facility:[facility] Start: 07-28-2022 ambulatory Jabari blake MD Work Phone: Internal Medicine [place] Start: 07-22-2022 Refill [facility](Historical) I nternal Medicine [place] Comment on above: Refill Request Start: 06-13-2022 End: 06-13-2022 Patient encounter procedure Cecilia Older MRI MANAGER.BOBTAIL DRIVER Work Phone: Internal Medicine [place] Comment on above: Diabetes mellitus ty pe 2 in obese (HCC) (Primary Dx); Hypothyroidism, unspecified type; Fibromyalgia; Hyperlipidemia, unspecified hyperlipidemia type; Chronic low back pain, unspecified back pain laterality, unspecified whether sciatica present; Cervicalgia; Encounter for immunization; Obesity, Class I, BMI 30-34.9 Start: 04-26-2022 End: 04-26-2022 Patient encounter procedure Kera Richmond MD Work Phone: General Surgery Comment on above: Lipoma of back (Prim dawn Dx); Dysesthesia Start: 04-19-2022 End: 04-19-2022 Patient encounter procedure Kera Richmond MD Work Phone: General Surgery Comment on above: Subcutaneous mass (P rimary Dx) Start: 03-14-2022 End: 03-14-2022 Patient encounter procedure Kera Richmond MD Work Phone: General Surgery Comment on above: Subcutaneous mass (P rimary Dx) Start: 03-10-2022 Telephone encounter Jabari townsend MD Work Phone: Internal Medicine [place] Comment on above: Appointment Start: 02-23-2022 End: 02-23-2022 Patient encounter procedure Kera Richmond MD Work Phone: General Surgery Comment on above: Lipoma of torso (Jemima ludwin Dx) Start: 01-06-2022 End: 01-06-2022 Subsequent hospital visit by physician Xr [facility] [place] Work Phone: Radiology Comment on above: Finger pain, right [ M79.644] Start: 01-06-2022 End: 01-06-2022 Patient encounter procedure Filomena Couch APRN.CNP Work Phone: [place] [facility] Comment on above: Finger pain, right ( Primary Dx) Start: 12-20-2021 Telephone encounter Jabari townsend MD Work Phone: Family [facility] Comment on above: Results Start: 12-08-2021 End: 12-08-2021 Patient encounter procedure Kera Richmond MD Work Phone: General Surgery Comment on above: Lipoma of back (Prim dawn Dx); Dysesthesia Refill Request Start: 12-03-2021 End: 12-03-2021 Patient encounter procedure Kera Richmond MD Work Phone: General Surgery Comment on above: Lipoma of back (Prim dawn Dx) Start: 12-03-2021 End: 12-03-2021 Patient encounter procedure Jabari Murillo MD Work Phone: Internal Medicine [place] Comment on above: Hyperlipidemia, unsp ecified hyperlipidemia type; Diabetes mellitus type 2 in obese (HCC); Cervicalgia; Fibromyalgia; Chronic low back pain, unspecified back pain laterality, unspecified whether sciatica present Start: 01-26-2021 ambulatory Jabari blake MD Work Phone: Internal Medicine [place] Comment on above: Covid19 Concern Start: 07-31-2020 End: 07-31-2020 Subsequent hospital visit by physician Xr [facility] [place] Work Phone: Radiology Comment on above: Shoulder injury, rig ht, initial encounter [S49.91XA] Start: 07-09-2020 End: 07-09-2020 Subsequent hospital visit by physician Xr [facility] [place] Work Phone: Radiology Comment on above: Pneumonia due to COV ID-19 virus [U07.1, J12.89] Start: 06-29-2020 End: 06-29-2020 Subsequent hospital visit by physician Xr [facility] [place] Work Phone: Radiology Comment on above: Pneumonia of left boston ng due to infectious organism, unspecified part of lung [J18.9] Start: 12-17-2007 End: 02-28-2012 Patient encounter status Neur Testing Work Phone: [facility] Work Phone: Procedures Date Procedure Procedure Detail Performing Clinician Start: 11-20-2024 PFIZER-BIONTECH COVI D-19 VACCINE AGE 12+ YR (COMIRNATY) Jabari Murillo MD Work Phone: Start: 11-20-2024 Adult depression scr eening assessment Jabari Murillo MD Work Phone: Start: 04-23-2024 Hemoglobin A1c/Hemoglobin.total in Blood Cecilia Whitlock MRI MANAGER.BOBTAIL DRIVER Work Phone: Start: 02-14-2024 Nerve conduction may dies 5-6 studies Marimar Villar MRI MANAGER.ELECTROLYSIS INVESTIGATOR Work Phone: Start: 02-12-2024 Radex toe minimum 2 views Cecilia Whitlock MRI MANAGER.BOBTAIL DRIVER Work Phone: Start: 12-05-2023 Radex spine cervical 2 or 3 views [facility] Start: 11-06-2023 Adult depression scr eening assessment Jabari Murillo MD Work Phone: Start: 06-28-2023 Us abdominal real ti me w/image limited Cecilia Older MRI MANAGER.BOBTAIL DRIVER Work Phone: Start: 12-14-2022 Electroencephalogram w/rec awake&drowsy Jabari Murillo MD Work Phone: Start: 10-24-2022 Ecg routine ecg w/le ast 12 lds i&r only [facility] Provider Start: 06-13-2022 [employer] COVI D-19 BIVALENT BOOSTER VACCINE, AGE 12+ YR Cecilia Older MRI MANAGER.BOBTAIL DRIVER Work Phone: Start: 02-23-2022 SURGICAL PATHOLOGY Michael Richmond MD Work Phone: Start: 01-06-2022 Radex hand minimum 3 views Filomena Couch MRI MANAGER.BOBTAIL DRIVER Work Phone: Start: 12-03-2021 Hemoglobin A1c/Hemoglobin.total in Blood Jabari Murillo MD Work Phone: Start: 05-28-2021 Adult depression scr eening assessment Jabari Murillo MD Work Phone: Start: 10-29-2020 Colonoscopy Jabari Amaya MD Work Phone: Start: 07-31-2020 Radex shoulder compl ete minimum 2 views Jeff Selby MRI MANAGER.BOBTAIL DRIVER Work Phone: Start: 07-09-2020 Radiologic exam chest 2 views Jabari Murillo MD Work Phone: Start: 06-29-2020 Radiologic exam chest 2 views Cecilia Whitlock MRI MANAGER.BOBTAIL DRIVER Work Phone: Start: 02-16-2017 Mammography Jabari Amaya MD Work Phone: Cholecystectomy AUDELIA SANTIZO DPM Esophagogastrostomy, antesternal or antethoracic AUDELIA SANTIZO DPM Comment on above: 2010 Excision of bunion AUDELIA SOFIA TOTH DPM Comment on above: BILATERAL Hysterectomy AUDELIA SANTIZO DP M Neoplasm (morphologi c abnormality) AUDELIA SANTIZO DPM Comment on above: FATTY TUMORS TO NECK REMOVED Plan of Treatment Date Care Activity Detail Author Start: 2039 RSV Vaccine (1 - 1-dose 75+ series) RSV Vaccine (1 - 1-dose 75+ series) [facility] Start: 05-21-2034 Urine microalbumin profile DTaP,Tdap,Td Vaccine (2 - Td or Tdap) [facility] Start: 10-29-2030 Colonoscopy COLONOSCOPY [facility] Start: 10-29-2030 COLORECTAL CANCER SCREENING COLORECTAL CANCER SCREENING [facility] Start: 10-29-2030 Screening for malignant neoplasm of colon [facility] Start: 11-20-2025 Annual PCP Team Chronic Disease Visit Annual PCP Team Chronic Disease Visit [facility] Start: 11-20-2025 Anxiety Screening Anxiety Screening [facility] Start: 11-20-2025 BP Controlled (<130/80) BP Controlled (<130/80) [facility] Start: 11-20-2025 Depression Screening Depression Screening [facility] Start: 11-20-2025 Diabetic foot examination Diabetic Foot Exam [facility] Start: 11-20-2025 Hepatitis B screening Urine Albumin:Creatinine Ratio [facility] Start: 11-20-2025 Hepatitis B surface antibody level LDL Cholesterol [facility] Start: 11-01-2025 Annual PCP Team Chronic Disease Visit Annual PCP Team Chronic Disease Visit [facility] Start: 11-01-2025 BP Controlled (<130/80) BP Controlled (<130/80) [facility] Start: 08-08-2025 Screening for malignant neoplasm of breast Mammogram Screening [facility] Start: 05-22-2025 Hemoglobin A1c measurement HbA1C [facility] Start: 05-21-2025 Annual PCP Team Chronic Disease Visit Annual PCP Team Chronic Disease Visit [facility] Start: 05-21-2025 BP Controlled (<130/80) BP Controlled (<130/80) [facility] Start: 05-12-2025 End: 05-12-2025 Patient encounter procedure 05/12/2025 8:20 AM EDT Office Visit [facility] [place] [address] [place] [id number] Cecilia Whitlock, MRI MANAGER.BOBTAIL DRIVER [address] [place] [id number] 6 month follow up [facility] [place] Comment on above: 6 month follow up Start: 04-23-2025 Annual PCP Team Chronic Disease Visit Annual PCP Team Chronic Disease Visit [facility] Start: 02-11-2025 Annual PCP Team Chronic Disease Visit Annual PCP Team Chronic Disease Visit [facility] Start: 01-31-2025 End: 05-02-2025 CBC panel - Blood by Automated count COMPLETE BLOOD COUNT Lab Routine Diabetes mellitus type 2 in obese (HCC) Expected: 01/31/2025, Expires: 05/02/2025 [facility] Comment on above: Expected: 01/31/2025, Expires: Start: 01-31-2025 End: 05-02-2025 Comprehensive metabolic 2000 panel - Serum or Plasma COMPREHENSIVE METABOLIC PANEL Lab Routine Diabetes mellitus type 2 in obese (HCC) Expected: 01/31/2025, Expires: 05/02/2025 [facility] Comment on above: Expected: 01/31/2025, Expires: Start: 01-31-2025 End: 05-02-2025 Hemoglobin A1c in Blood HEMOGLOBIN A1C Lab Routine Diabetes mellitus type 2 in obese (HCC) Expected: 01/31/2025, Expires: 05/02/2025 [facility] Comment on above: Expected: 01/31/2025, Expires: Start: 01-31-2025 End: 05-02-2025 Lipid 1996 panel - Serum or Plasma LIPID PANEL BASIC Lab Routine Diabetes mellitus type 2 in obese (HCC) Expected: 01/31/2025, Expires: 05/02/2025 [facility] Comment on above: Expected: 01/31/2025, Expires: Start: 01-31-2025 End: 05-02-2025 Microalbumin/Creatinine [Mass Ratio] in Urine ALBUMIN/CREATININE RATIO, URINE Lab Routine Diabetes mellitus type 2 in obese (HCC) Expected: 01/31/2025, Expires: 05/02/2025 [facility] Comment on above: Expected: 01/31/2025, Expires: Start: 01-31-2025 End: 05-02-2025 Thyrotropin [Units/volume] in Serum or Plasma THYROID STIMULATING HORMONE Lab Routine Hypothyroidism, unspecified type Expected: 01/31/2025, Expires: 05/02/2025 [facility] Work Phone: Comment on above: Expected: 01/31/2025, Expires: Start: 01-07-2025 BP Controlled (<130/80) BP Controlled (<130/80) [facility] Start: 12-10-2024 End: 12-10-2024 Patient encounter procedure 12/10/2024 8:30 AM EDT Office Visit [facility] [address] [place] [address] Inderjit Gomez MD [address] [place] [id number] 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) [E11.69, E66.9] Ophthalmology Comment on above: Type 2 diabetes mellitus with obesity (H CC) [E11.69, E66.9] Start: 12-05-2024 Annual PCP Team Chronic Disease Visit Annual PCP Team Chronic Disease Visit [facility] Start: 12-03-2024 End: 12-03-2024 Patient encounter procedure 12/03/2024 8:00 AM EDT Office Visit Cardiology [address] [place] [address] Ascending aorta dilation [I77.810] Cardiology Comment on above: Ascending aorta dilation [I77.810] Start: 11-20-2024 End: 02-19-2025 25-hydroxyvitamin D3 [Mass/volume] in Serum or Plasma [facility] Comment on above: Expected: 11/20/2024, Expires: Start: 11-20-2024 End: 02-19-2025 CBC panel - Blood by Automated count [facility] Comment on above: Expected: 11/20/2024, Expires: Start: 11-20-2024 End: 02-19-2025 Cobalamin (Vitamin B12) [Mass/volume] in Serum or Plasma [facility] Comment on above: Expected: 11/20/2024, Expires: Start: 11-20-2024 End: 02-19-2025 Comprehensive metabolic 2000 panel - Serum or Plasma [facility] Comment on above: Expected: 11/20/2024, Expires: Start: 11-20-2024 End: 02-19-2025 Hemoglobin A1c in Blood [facility] Comment on above: Expected: 11/20/2024, Expires: Start: 11-20-2024 End: 02-19-2025 Lipid 1996 panel - Serum or Plasma [facility] Comment on above: Expected: 11/20/2024, Expires: Start: 11-20-2024 End: 02-19-2025 Microalbumin/Creatinine [Mass Ratio] in Urine [facility] Work Phone: Comment on above: Expected: 11/20/2024, Expires: Start: 11-20-2024 End: 02-19-2025 Thyrotropin [Units/volume] in Serum or Plasma [facility] Comment on above: Expected: 11/20/2024, Expires: Start: 11-19-2024 End: 11-19-2024 Patient encounter procedure 11/19/2024 8:40 AM EDT Office Visit Internal Medicine [place] [address] [place] [address] Jabari Murillo MD [address] [place] [address] 6 month follow up Internal Medicine [facility] Comment on above: 6 month follow up Start: 11-05-2024 Annual PCP Team Chronic Disease Visit Annual PCP Team Chronic Disease Visit [facility] Start: 11-05-2024 Anxiety Screening Anxiety Screening [facility] Start: 11-05-2024 Depression Screening Depression Screening [facility] Start: 11-05-2024 Diabetic foot examination Diabetic Foot Exam [facility] Start: 10-21-2024 Hemoglobin A1c measurement HbA1C [facility] Start: 10-06-2024 Hepatitis B screening Urine Albumin:Creatinine Ratio [facility] Start: 10-06-2024 Hepatitis B surface antibody level LDL Cholesterol [facility] Start: 08-08-2024 End: 08-08-2024 Patient encounter procedure 08/08/2024 8:10 AM EST Appointment Mammogram [address] [place] [address] Encounter for screening mammogram for breast cancer Mammogram Comment on above: Encounter for screening mammogram for br east cancer Start: 08-03-2024 Annual PCP Team Chronic Disease Visit Annual PCP Team Chronic Disease Visit [facility] Start: 08-03-2024 Screening for malignant neoplasm of breast Mammogram Screening [facility] Start: 06-20-2024 Annual PCP Team Chronic Disease Visit Annual PCP Team Chronic Disease Visit [facility] Start: 05-21-2024 End: 05-21-2024 Patient encounter procedure 05/21/2024 8:00 AM EDT Office Visit Internal Medicine [place] [address] [place] [address] Cecilia Whitlock, MRI MANAGER.BOBTAIL DRIVER [address] [place] [address] bp check [facility] [place] Comment on above: bp check Start: 05-15-2024 End: 05-15-2024 Patient encounter procedure Pain Management Comment on above: follow up [employer]IOSK FLAG - SEE FYI AND REFERRAL NOTES Start: 05-08-2024 Annual PCP Team Chronic Disease Visit Annual PCP Team Chronic Disease Visit [facility] Start: 04-27-2024 ANNUAL PCP TEAM CHRONIC DISEASE VISIT ANNUAL PCP TEAM CHRONIC DISEASE VISIT [facility] Start: 04-25-2024 Hepatitis B surface antibody level LDL CHOLESTEROL [facility] Start: 04-21-2024 Covid-19 Vaccine ( season) Covid-19 Vaccine () [facility] Start: 04-21-2024 Covid-19 Vaccine () Covid-19 Vaccine () [facility] Start: 04-15-2024 End: 04-15-2024 Patient encounter procedure 04/15/2024 8:40 AM EDT Office Visit Internal Medicine [place] [address] [place], [place] [id number] Cecilia Whitlock, MRI MANAGER.BOBTAIL DRIVER [address] [place] [address] 2 month follow up Internal Medicine [place] Comment on above: 2 month follow up Start: 04-05-2024 Hemoglobin A1c measurement HbA1C [facility] Start: 04-04-2024 ANNUAL PCP TEAM CHRONIC DISEASE VISIT ANNUAL PCP TEAM CHRONIC DISEASE VISIT [facility] Start: 03-13-2024 End: 03-13-2024 Patient encounter procedure 03/13/2024 12:45 PM EDT Office Visit [facility] [address] [place] [address] [address] [place], [place] [id number] Alycia Rojas, MRI MANAGER.BOBTAIL DRIVER [address] [place] [address] Cervicalgia [M54.2] [facility] Comment on above: Cervicalgia [M54.2] Start: 02-14-2024 End: 02-14-2024 ambulatory 02/14/2024 9:25 AM EDT Procedure Neurology [address] [place] [address] r L UE Neurology Comment on above: r L UE Start: 02-12-2024 End: 02-12-2024 Patient encounter procedure 02/12/2024 8:40 AM EDT Office Visit Internal Medicine [place] [address] [place] [address] Cecilia Whitlock, MRI MANAGER.BOBTAIL DRIVER [address] [place] [address] follow up Internal Medicine [facility] Comment on above: follow up Start: 02-01-2024 End: 02-01-2024 Patient encounter procedure 02/01/2024 8:00 AM EDT Appointment Cardiology Lab [address] [place] [address] Dx: Transient loss of consciousness [R55 (ICD-10-CM)]; Orthostatic intolerance [I95.1 (ICD-10-CM)] Cardiology Lab Comment on above: Dx: Transient loss of consciousness [R55 (ICD-10-CM)]; Orthostatic intolerance [I95.1 (ICD-10-CM)] Start: 01-29-2024 End: 01-29-2024 ambulatory 01/29/2024 8:15 AM EDT Procedure Neurology [address] [place] [address] Left arm numbness [R20.0] Neurology Comment on above: Left arm numbness [R20.0] Start: 01-23-2024 End: 01-23-2024 Patient encounter procedure 01/23/2024 9:30 AM EDT Office Visit Dermatology [address] [place], [place] [id number] Janine Mendes V, MD [address] [place], [place] [id number] Rash and nonspecific skin eruption [R21] follow up Dermatology Comment on above: Rash and nonspecific skin eruption [R21] follow up Start: 01-18-2024 End: 01-18-2024 Patient encounter procedure 01/18/2024 8:45 AM EDT Office Visit Otolaryngology [address] [address] Alexander High MD [address] [address] Nasal pain [J34.89] Otolaryngology Comment on above: Nasal pain [J34.89] Start: 01-08-2024 End: 01-08-2024 Patient encounter procedure 01/08/2024 8:00 AM EDT Office Visit Internal Medicine [place] [address] [place] [address] Cecilia Whitlock, MRI MANAGER.BOBTAIL DRIVER [address] [place] [address] 4 week follow up Internal Medicine [place] Comment on above: 4 week follow up Start: 12-27-2023 Hemoglobin A1c measurement HbA1C [facility] Start: 12-27-2023 Hemoglobin A1c/Hemoglobin.total in Blood HbA1C [facility] Start: 11-24-2023 ANNUAL PCP TEAM CHRONIC DISEASE VISIT ANNUAL PCP TEAM CHRONIC DISEASE VISIT [facility] Start: 11-02-2023 End: 02-01-2024 ALBUMIN/CREAT RATIO RND UR ALBUMIN/CREAT RATIO RND UR Lab Routine Diabetes mellitus type 2 in obese (HCC) Expected: 11/02/2023, Expires: 02/01/2024 [facility] Work Phone: Comment on above: Expected: 11/02/2023, Expires: Start: 11-02-2023 End: 02-01-2024 CBC panel - Blood by Automated count CBC Lab Routine Tachycardia Expected: 11/02/2023, Expires: 02/01/2024 [facility] Work Phone: Comment on above: Expected: 11/02/2023, Expires: Start: 11-02-2023 End: 02-01-2024 Comprehensive metabolic 2000 panel - Serum or Plasma COMP METABOLIC PANEL Lab Routine Diabetes mellitus type 2 in obese (HCC) Expected: 11/02/2023, Expires: 02/01/2024 [facility] Work Phone: Comment on above: Expected: 11/02/2023, Expires: Start: 11-02-2023 End: 02-01-2024 Hemoglobin A1c in Blood HGB A1C Lab Routine Diabetes mellitus type 2 in obese (HCC) Expected: 11/02/2023, Expires: 02/01/2024 [facility] Work Phone: Comment on above: Expected: 11/02/2023, Expires: Start: 11-02-2023 End: 02-01-2024 Lipid 1996 panel - Serum or Plasma LIPID PANEL BASIC Lab Routine Diabetes mellitus type 2 in obese (HCC) Expected: 11/02/2023, Expires: 02/01/2024 [facility] Work Phone: Comment on above: Expected: 11/02/2023, Expires: 4 Start: 11-02-2023 End: 02-01-2024 Thyrotropin [Units/volume] in Serum or Plasma TSH BLD Lab Routine Hypothyroidism, unspecified type Expected: 11/02/2023, Expires: 02/01/2024 [facility] Work Phone: Comment on above: Expected: 11/02/2023, Expires: 4 Start: 10-25-2023 3 comp foot exam completed DIABETIC FOOT EXAM [facility] Start: 10-25-2023 ANNUAL PCP TEAM CHRONIC DISEASE VISIT ANNUAL PCP TEAM CHRONIC DISEASE VISIT [facility] Start: 10-25-2023 Diabetic foot examination Diabetic Foot Exam [facility] Start: 10-25-2023 Hepatitis B screening URINE ALBUMIN:CREATININE RATIO [facility] Start: 10-25-2023 Hepatitis B surface antibody level LDL CHOLESTEROL [facility] Start: 10-24-2023 Hemoglobin A1c/Hemoglobin.total in Blood HBA1C [facility] Start: 08-21-2023 Behavioral Health Screening Behavioral Health Screening [facility] Start: 08-21-2023 Depression Assessment Depression Assessment [facility] Start: 07-27-2023 End: 09-26-2023 Basic metabolic 2000 panel - Serum or Plasma BASIC METABOLIC PNL Lab Routine Diabetes mellitus type 2 in obese (HCC) Expected: 07/27/2023, Expires: 09/26/2023 [facility] Work Phone: Comment on above: Expected: 07/27/2023, Expires: 4 Start: 07-27-2023 End: 09-26-2023 Hemoglobin A1c in Blood HGB A1C Lab Routine Diabetes mellitus type 2 in obese (HCC) Expected: 07/27/2023, Expires: 09/26/2023 [facility] Work Phone: Comment on above: Expected: 07/27/2023, Expires: 4 Start: 07-05-2023 End: 09-04-2023 25-hydroxyvitamin D3 [Mass/volume] in Serum or Plasma VITAMIN D 25 HYDROXY Lab Routine Vitamin D deficiency Expected: 07/05/2023 (Approximate), Expires: 09/04/2023 [facility] Work Phone: Comment on above: Expected: 07/05/2023 (Approximate), Expi res: 09/04/2023 Start: 07-05-2023 End: 09-04-2023 Cobalamin (Vitamin B12) [Mass/volume] in Serum or Plasma VITAMIN B12 BLOOD Lab Routine Vitamin B12 deficiency Expected: 07/05/2023 (Approximate), Expires: 09/04/2023 [facility] Work Phone: Comment on above: Expected: 07/05/2023 (Approximate), Expi res: 09/04/2023 Start: 06-20-2023 End: 09-19-2023 Comprehensive metabolic 2000 panel - Serum or Plasma [facility] Work Phone: Comment on above: Expected: 06/20/2023, Expires: Start: 06-20-2023 End: 09-19-2023 Gamma glutamyl transferase [Enzymatic activity/volume] in Serum or Plasma [facility] Work Phone: Comment on above: Expected: 06/20/2023, Expires: Start: 06-13-2023 ANNUAL PCP TEAM CHRONIC DISEASE VISIT ANNUAL PCP TEAM CHRONIC DISEASE VISIT [facility] Start: 06-13-2023 HEPATITIS B (1 of 3 - 3-dose series) HEPATITIS B (1 of 3 - 3-dose series) [facility] Comment on above: Postponed from 1964 (Declined at t his time) Start: 06-13-2023 Hepatitis B surface antibody level LDL CHOLESTEROL [facility] Start: 06-13-2023 Hepatitis B Vaccine (1 of 3 - 3-dose series) Hepatitis B Vaccine (1 of 3 - 3-dose series) [facility] Comment on above: Postponed from 1964 (Declined at t his time) Start: 06-13-2023 SHINGRIX VACCINE (1 of 2) SHINGRIX VACCINE (1 of 2) [facility] Comment on above: Postponed from 2014 (Declined at t his time) Start: 06-13-2023 Urine microalbumin profile [facility] Comment on above: Postponed from 07/07/2009 (Declined at t his time) Start: 05-06-2023 Glaucoma screening Dilated Retinal Exam [facility] Start: 05-06-2023 Hepatitis C antibody, confirmatory test DILATED RETINAL EXAM [facility] Start: 04-26-2023 Hemoglobin A1c/Hemoglobin.total in Blood HBA1C [facility] Start: 04-21-2023 Covid-19 Vaccine () Covid-19 Vaccine () [facility] Start: 12-12-2022 Hemoglobin A1c/Hemoglobin.total in Blood HBA1C [facility] Start: 12-03-2022 ANNUAL PCP TEAM CHRONIC DISEASE VISIT ANNUAL PCP TEAM CHRONIC DISEASE VISIT [facility] Start: 10-24-2022 End: 12-24-2022 ALBUMIN/CREAT RATIO RND UR [facility] Work Phone: Comment on above: Expected: 10/24/2022, Expires: Start: 09-08-2022 3 comp foot exam completed DIABETIC FOOT EXAM [facility] Start: 09-08-2022 Hepatitis B surface antibody level LDL CHOLESTEROL [facility] Start: 09-08-2022 ONE PNEUMOVAX PRIOR TO AGE 65 ONE PNEUMOVAX PRIOR TO AGE 65 [facility] Comment on above: Postponed from 1980 (Declined at t his time) Start: 09-08-2022 PNEUMOCOCCAL (1 - PCV) PNEUMOCOCCAL (1 - PCV) [facility] Comment on above: Postponed from 1970 (Declined at t his time) Start: 09-02-2022 Hepatitis B screening URINE ALBUMIN:CREATININE RATIO [facility] Start: 08-21-2022 DEPRESSION ASSESSMENT DEPRESSION ASSESSMENT [facility] Start: 06-04-2022 End: 08-04-2022 Comprehensive metabolic 2000 panel - Serum or Plasma COMP METABOLIC PANEL Lab Routine Diabetes mellitus type 2 in obese (HCC) Expected: 06/04/2022, Expires: 08/04/2022 [facility] Work Phone: Comment on above: Expected: 06/04/2022, Expires: Start: 06-04-2022 End: 08-04-2022 Hemoglobin A1c/Hemoglobin.total in Blood [facility] Work Phone: Comment on above: Expected: 06/04/2022, Expires: 2 Start: 06-04-2022 End: 08-04-2022 LIPID PANEL BASIC LIPID PANEL BASIC Lab Routine Hyperlipidemia, unspecified hyperlipidemia type Expected: 06/04/2022, Expires: 08/04/2022 [facility] Work Phone: Comment on above: Expected: 06/04/2022, Expires: 2 Start: 05-28-2022 Adult depression screening assessment DEPRESSION SCREENING [facility] Start: 05-19-2022 Hepatitis C antibody, confirmatory test DILATED RETINAL EXAM [facility] Start: 03-22-2022 COVID-19 VACCINE (3 - Booster for Pfizer series) COVID-19 VACCINE (3 - Booster for Pfizer series) [facility] Start: 05-24-2021 FECAL OCCULT BLOOD FECAL OCCULT BLOOD [facility] Start: 05-24-2021 Screening for malignant neoplasm of colon Fecal Occult Blood [facility] Start: 02-16-2018 Mammography [facility] Start: 02-16-2018 Screening for malignant neoplasm of breast Mammogram Screening [facility] Start: 2014 SHINGRIX VACCINE (1 of 2) SHINGRIX VACCINE (1 of 2) [facility] Start: 07-07-2009 Urine microalbumin profile [facility] Start: 2009 COLOGUARD (FIT-DNA) COLOGUARD (FIT-DNA) [facility] Start: [address] COLONOGRAPHY [facility] Start: 2009 Screening for malignant neoplasm of colon [facility] Start: 2009 SIGMOIDOSCOPY SIGMOIDOSCOPY [facility] Start: 1983 HEPATITIS B (1 of 3 - Risk 3-dose series) HEPATITIS B (1 of 3 - Risk 3-dose series) [facility] Start: 1983 Pneumococcal Vaccine: 50+ (1 of 2 - PCV) Pneumococcal Vaccine: 50+ (1 of 2 - PCV) [facility] Start: 1982 Anxiety Screening Anxiety Screening [facility] Start: 1982 BP Controlled (<130/80) BP Controlled (<130/80) [facility] Start: 1982 Depression Screening Depression Screening [facility] Start: 1970 PNEUMOCOCCAL (1 - PCV) PNEUMOCOCCAL (1 - PCV) [facility] Start: 1964 HEPATITIS B (1 of 3 - 3-dose series) HEPATITIS B (1 of 3 - 3-dose series) [facility] Start: 1964 Hepatitis B Vaccine (1 of 3 - 3-dose series) Hepatitis B Vaccine (1 of 3 - 3-dose series) [facility] Cardiovascular funct ion eval w/tilt table w/mntr TILT TABLE EVALUATION Cardiology Routine Orthostatic intolerance 1 Occurrences starting 04/10/2023 [facility] Work Phone: Comment on above: 1 Occurrences starting 04/10/2023 Cardiovascular funct ion eval w/tilt table w/mntr TILT TABLE EVALUATION Cardiology Routine Transient loss of consciousness Orthostatic intolerance 1 Occurrences starting 11/03/2023 [facility] Work Phone: Comment on above: 1 Occurrences starting 11/03/2023 End: 06-20-2025 DBT Breast - bilateral screening JORDAN SCREENING W DENEEN Radiology Routine Encounter for screening mammogram for breast cancer 1 Occurrences starting 05/21/2024 until 06/20/2025 [facility] Work Phone: Comment on above: 1 Occurrences starting 05/21/2024 until 06/20/2025 DBT Breast - bilater al screening JORDAN SCREENING W DENEEN Radiology Routine Encounter for screening mammogram for breast cancer 08/08/2024 7:48 AM EST [facility] Work Phone: End: 10-25-2023 ECG COMPLETE ECG COMPLETE ECG Routine Syncope, unspecified syncope type Palpitations 1 Occurrences starting 10/24/2022 until 10/25/2023 [facility] Work Phone: Comment on above: 1 Occurrences starting 10/24/2022 until 10/25/2023 ECG COMPLETE ECG COMPLETE ECG 10/24/2022 2:11 PM EST [facility] ECG COMPLETE ECG COMPLETE ECG Routine Syncope, unspecified syncope type Tachycardia Ordered: 08/03/2023 [facility] Work Phone: Comment on above: Ordered: 08/03/2023 End: 08-03-2024 Echocardiography ECHO Cardiology Routine Syncope, unspecified syncope type 1 Occurrences starting 08/03/2023 until 08/03/2024 [facility] Work Phone: Comment on above: 1 Occurrences starting 08/03/2023 until 08/03/2024 End: 11-20-2025 Echocardiography ECHO Cardiology Routine Ascending aorta dilation 1 Occurrences starting 11/20/2024 until 11/20/2025 [facility] Comment on above: 1 Occurrences starting 11/20/2024 until 11/20/2025 Eeg w/o vid tech ea incr 12-26 hr cont r-t mntr EEG W/O VID TECH EA INCR 12-26 HR CONT R-T MNTR Procedures Routine Syncope, unspecified syncope type Ordered: 11/23/2022 [facility] Work Phone: Comment on above: Ordered: 11/23/2022 Eeg w/o vid tech ea incr 12-26 hr cont r-t mntr EEG W/O VID TECH EA INCR 12-26 HR CONT R-T MNTR Procedures Routine Syncope, unspecified syncope type Ordered: 11/25/2022 [facility] Work Phone: Comment on above: Ordered: 11/25/2022 End: 01-07-2025 EMG(NEURO/NI) EMG(NEURO/NI) EMG Routine Left arm numbness 1 Occurrences starting 01/08/2024 until 01/07/2025 [facility] Work Phone: Comment on above: 1 Occurrences starting 01/08/2024 until 01/07/2025 End: 04-10-2024 EPIL EEG W PROCEDURE EPIL EEG W PROCEDURE NEUROLOGY Routine Orthostatic intolerance 1 Occurrences starting 04/10/2023 until 04/10/2024 [facility] Work Phone: Comment on above: 1 Occurrences starting 04/10/2023 until 04/10/2024 End: 11-02-2024 EPIL EEG W PROCEDURE EPIL EEG W PROCEDURE NEUROLOGY Routine Transient loss of consciousness Orthostatic intolerance 1 Occurrences starting 11/03/2023 until 11/02/2024 [facility] Work Phone: Comment on above: 1 Occurrences starting 11/03/2023 until 11/02/2024 End: 08-27-2023 JORDAN SCREENING JORDAN SCREENING Radiology Routine Encounter for screening mammogram for breast cancer 1 Occurrences starting 07/28/2022 until 08/27/2023 [facility] Work Phone: Comment on above: 1 Occurrences starting 07/28/2022 until 08/27/2023 End: 05-26-2024 JORDAN SCREENING W DENEEN JORDAN SCREENING W DENEEN Radiology Routine Encounter for screening mammogram for malignant neoplasm of breast 1 Occurrences starting 04/27/2023 until 05/26/2024 [facility] Work Phone: Comment on above: 1 Occurrences starting 04/27/2023 until 05/26/2024 OUTSIDE VENDOR CARDI AC OUTPATIENT EXTENDED RHYTHM RECORDING (WITHOUT TELEMETRY) OUTSIDE VENDOR CARDIAC OUTPATIENT EXTENDED RHYTHM RECORDING (WITHOUT TELEMETRY) Holter Routine Syncope, unspecified syncope type Palpitations Ordered: 10/24/2022 [facility] Work Phone: Comment on above: Ordered: 10/24/2022 [employer] COVI D-19 VACCINE ( SEASON) AGE 12+ YR PFIZER-BIONTECH COVID-19 VACCINE ( SEASON) AGE 12+ YR Immunization/Injection Routine Need for COVID-19 vaccine Ordered: 08/03/2023 [facility] Work Phone: Comment on above: Ordered: 08/03/2023 SURGICAL PATHOLOGY SURGICAL PATH OLOGY Lab Routine Lipoma of back 12/03/2021 2:06 PM EDT [facility] Work Phone: SURGICAL PATHOLOGY SURGICAL PATH OLOGY Lab Routine Lipoma of back 12/08/2021 3:47 PM EDT [facility] Work Phone: SURGICAL PATHOLOGY SURGICAL PATH OLOGY Lab Routine Subcutaneous mass 03/14/2022 8:36 AM EDT [facility] Work Phone: SURGICAL PATHOLOGY SURGICAL PATH OLOGY Lab Routine Subcutaneous mass 04/19/2022 8:32 AM EDT [facility] Work Phone: SURGICAL PATHOLOGY SURGICAL PATH OLOGY Lab Routine Lipoma of back 04/26/2022 8:19 AM EDT [facility] Work Phone: End: 07-20-2024 US ABD RIGHT UPPER QUADRANT US ABD RIGHT UPPER QUADRANT Radiology Routine Fatty liver 1 Occurrences starting 06/21/2023 until 07/20/2024 [facility] Work Phone: Comment on above: 1 Occurrences starting 06/21/2023 until 07/20/2024 End: 02-05-2023 XR DIGIT GENERAL 3V FRONTAL/LAT/OBL RIGHT XR DIGIT GENERAL 3V FRONTAL/LAT/OBL RIGHT Radiology STAT Finger pain, right 1 Occurrences starting 01/06/2022 until 02/05/2023 [facility] Work Phone: Comment on above: 1 Occurrences starting 01/06/2022 until 02/05/2023 [facility] Immunizations Immunization Date Immunization Notes Care Provider [facility] 11-20-2024 COVID-19 vaccine, ag e 12+ yr (PFIZER-BIONTECH [facility]) Jabari Murillo MD Work Phone: [facility] 05-21-2024 tetanus toxoid, reduced diphtheria toxoid, and acellular pertussis vaccine, adsorbed Cecilia Chad MRI MANAGER.BOBTAIL DRIVER Work Phone: [facility] 06-13-2022 COVID-19 booster vaccine, age 12+ yr, bivalent (PFIZER-BIONTECH) Cecilia Asha MRI MANAGER.BOBTAIL DRIVER Work Phone: [facility] 10-20-2021 COVID-19 vaccine, ag e 12+ yr (PFIZER-BIONTECH - SIMS TOP) Jabari Murillo MD Work Phone: [facility] Work Phone: 01-21-2021 COVID-19 vaccine, ag e 12+ yr (PFIZER-BIONTECH - PURPLE TOP) Jabari Murillo MD Work Phone: [facility] 07-06-2009 tetanus and diphtheria toxoids, adsorbed, preservative free, for adult use (2 Lf of tetanus toxoid and 2 Lf of diphtheria toxoid) Jabari Murillo MD Work Phone: [facility] Work Phone: NEGATED: Highlighted row has not occurred!08-03-2023 COVID-19 vaccine, age 12+ yr, season (PFIZER-BIONTECH) Jabari Murillo MD Work Phone: [facility] Work Phone: Comment on above: Deferred: Postponed Payers Date Payer Category Payer Self-pay [address] [facility] ROLY JOHNSON [facility] Address: [address] [place] [address] [id number] 2024 Unknown [id number] 2024 Unknown [id number] 2022 Unknown [id number] 2022 Unknown [id number] 2020 Medicaid [place] [employer] [employer] [id number] 2020-Present [phone] [address] [place] [address] Medicaid [id number] 2020 Medicaid [id number] 1965 Unknown [id number]. 627 1965 Unknown [id number]. 627 1965 Unknown [id number]. 627 1964 Unknown [id number]. 1243 Unknown [id number]. 462 Unknown [id number]. 462 Unknown [id number] [id number]. 462 Unknown [id number]. 462 Unknown [id number]. 462 Unknown [id number] 462 Social History Date Type Detail Facility Start: 01-03-2011 End: 02-28-2023 Tobacco smoking status PAIS Never smoked tobacco [facility] Start: 12-03-2021 End: 11-20-2024 Alcohol intake Current non-drinker of alcohol (finding) [facility] Start: 1965 Sex Assigned At Not on file [facility] Start: 05-30-2020 End: 12-14-2022 Exposure to SARS-CoV-2 (event) Not sure [facility] Start: 02-26-2022 End: 04-15-2022 Exposure to SARS-CoV-2 (event) Unable to assess [facility] Work Phone: Start: 01-03-2011 End: 02-28-2023 Tobacco use and exposure Smokeless tobacco non-user [facility] Work Phone: Start: 1965 Sex Assigned At Female A [facility] History of tobacco use Passive smoker [facility] Start: 04-04-2023 End: 08-08-2024 [facility] Work Phone: Start: 04-04-2023 End: 08-08-2024 Tobacco use panel [facility] Work Phone: Start: 07-22-2012 Adult Depression Scr eening Assessment 0 [facility] Work Phone: Has the [place], or [place] threatened to shut off services in your home in past 12Mo No [facility] Do you belong to any clubs or organizations such as druze groups, unions, fraternal or athletic groups, or school groups? Yes [facility] Are you now , , , , never or living with a partner? [facility] How often to you hav e a drink containing alcohol? Never [facility] How hard is it for y ou to pay for the very basics like food, housing, medical care, and heating Somewhat hard [facility] (I/We) worried wheth er (my/our) food would run out before (I/we) got money to buy more. Never true [facility] Medical Equipment Procedure Code Equipment Code Equipment Original Text Equipment Identifier Dates Wire Екатерина .045in Stainless Steel 5.5in Fixation Trocar Smooth Guide - [id number] Start: 01-05-2016 [id number], [id number], [id number], [id number], [id number], [id number], [id number], [id number], [id number] Start: 06-23-2021 End: 11-20-2024 Comment on above: Test blood sugar(s) 2 times daily. Dx: Type 2 DM - Uncontrolled E11.65 Insulin: No Test 3 times weekly, Insulin Dep? No E11.9 DM 2 For B12 injections Functional Status Date Assessment Result Facility 09-16-2022 Functional Status ice chips and sips take n [facility] 09-16-2022 Functional Status [facility] 09-06-2022 Functional Status Sensory Deficits None A [facility] 09-10-2014 Are you deaf, or do you have serious difficulty hearing No 09/10/2014 11:33 AM Monica Nicolas LPN No [facility] 09-10-2014 Are you blind, or do you have serious difficulty seeing, even when wearing glasses No 09/10/2014 11:33 AM Monica Nicolas LPN No [facility] 09-10-2014 Do you have serious difficulty walking or climbing stairs No 09/10/2014 11:33 AM Monica Nicolas LPN No [facility] 09-10-2014 Do you have difficul ty dressing or bathing No 09/10/2014 11:33 AM Monica Nicolas LPN No [facility] 09-10-2014 Because of a physica l, mental, or emotional condition, do you have difficulty doing errands alone such as visiting a physician's office or shopping No 09/10/2014 11:33 AM Monica Nicolas LPN No [facility] Mental Status Date Assessment Result Facility 09-16-2022 Mental Status Oriented x 4 [facility] 09-16-2022 Mental Status [facility] 09-10-2014 Because of a physica l, mental, or emotional condition, do you have serious difficulty concentrating, remembering, or making decisions Yes 09/10/2014 11:33 AM Monica Nicolas LPN Yes [facility] Clinical Notes 06-29-2020 to 05-12-2025 Telephone Encounter - Winifred Gallego - 04/14/2025 9:26 AM EDTTelephone Encounter - Chico Gallegodi - 04/14/2025 9:26 AM EDT Note Date & Type Note Facility 05-12-2025 Note HNO ID: [id number] Author: CECILIA WHITLOCK APRN.BOBTAIL DRIVER Service: ? Author Type: Nurse Practitioner Type: Progress Notes Filed: 05/12/2025 08:59 Note Text: CC: Patient presents with: Follow Up: 6 months HPI Recording using [employer] software for draft documentation of the visit was discussed with the patient/authorized customer engagement representative; all questions welcomed and answered. Patient/authorized customer engagement representative agreed to proceed The patient is a 59-year-old female with HTN, T2DM, hyperlipidemia, fibromyalgia, hypothyroidism, and GERD, presenting for medication refills and evaluation of an infected abdominal cat scratch. Abdominal Wound: - Sustained a scratch on the abdomen near her belly button from a cat, which has become infected. - Reports malodor and drainage from the wound. - Describes the wound as kind of painful but not severe. - Applying triple antibiotic ointment to the wound. Hypertension: - Managed with amlodipine and losartan. - Denies checking blood pressure at home. - Denies side effects of medication Hyperlipidemia: - Managed with atorvastatin; denies side effects. - Last cholesterol check in November. Fibromyalgia: - Managed with Cymbalta 60 mg daily; previously took an additional 20 mg daily, which provided additional relief. - Reports persistent neck pain. - Dissatisfied with current pain management provider, Dr. Negro - Uses tizanidine PRN for shoulder pain and leg cramps, which also aids sleep. Hypothyroidism: - Managed with levothyroxine; taking daily on an empty stomach. GERD: - Managed with omeprazole; denies heartburn, reflux, abdominal pain or dysphagia. Diabetes Mellitus: - Managed with Trulicity; denies side effects. - Previously took Glyset 25 mg PRN, but no longer uses it. - Monitors blood glucose at home; readings range from 60 to 152 mg/dL. - Experiences occasional hypoglycemia around 60 mg/dL, managed with candy intake. Review of Systems Constitutional: Negative for chills, diaphoresis, fatigue, fever and unexpected weight change. Respiratory: Negative for cough, shortness of breath and wheezing. Cardiovascular: Negative for chest pain, palpitations and leg swelling. Neurological: Negative for dizziness, syncope, weakness, light-headedness and headaches. PAST MEDICAL HISTORY Diagnosis Date Ascending aorta dilation 08/19/2023 COVID-19 virus infection 06/12/2020 Diabetes mellitus type 2 in obese 06/01/2011 Displaced fracture of base of fifth metacarpal bone of right hand with routine healing 02/11/2016 DJD (degenerative joint disease) left knee, hips Dysmetabolic syndrome X 03/14/2008 impaired fasting glucose Extensor intersection syndrome 12/30/2013 Fatty liver 07/20/2011 VIRGEN Fibromyalgia 06/03/2014 Gastric bypass status for obesity 07/2011 Hot flashes due to surgical menopause 11/17/2010 Hyperlipidemia 07/20/2011 Hypothyroidism Knee pain 12/06/2010 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 05/19/2015 Syncope 08/03/2023 Unspecified essential hypertension Urine, incontinence, stress female 12/02/2011 Vitamin D deficiency PAST SURGICAL HISTORY Procedure Laterality Date BUNIONECTOMY, LAPIDUS-TYPE Right 09/16/2022 Dr. Santizo DELIVERY ONLY 08/21/2000 , low transverse COLONOSCOPY - DIAGNOSTIC 10/29/2020 EGD 10/29/2020 GASTRIC BYPASS, SHASHA-EN-Y 08/16/2011 laparoscopic, [facility] HYSTERECTOMY HX 08/21/2007 Menorrhagia, Vaginal hysterectomy LAPAROSCOPIC CHOLECYSTECTOMY 12/02/2020 ROTATOR CUFF REPAIR 06/10/2014 Dr. Hansen, Right shoulder ROTATOR CUFF REPAIR 09/09/2014 Redo, right shoulder. SALPINGO-OOPHORECTOMY COMPL/PRTL UNI/BI SPX 08/21/2008 b/l due to pain TONSILLECTOMY HX 08/21/2005 ALLERGIES Celebrex [Celecoxib], Latex, and Nsaids (Non-Steroidal Anti-Inflammatory Drug) MEDICATIONS amLODIPine (NORVASC) 5 mg tablet Take 1 tablet by mouth once daily. atorvastatin (LIPITOR) 20 mg tablet Take 1 tablet by mouth three times a week. DULoxetine DR (CYMBALTA) 20 mg capsule Take 1 capsule by mouth once daily. Added to [address] (CYMBALTA) 60 mg capsule Take 1 capsule by mouth once daily. ergocalciferol 50,000 unit capsule (VITAMIN D2, DRISDOL) Take 1 capsule by mouth one time a week. levothyroxine (SYNTHROID) 88 mcg tablet Take 1 tablet by mouth daily before breakfast. losartan (COZAAR) 25 mg tablet Take 1 tablet by mouth once daily. omeprazole (PRILOSEC) 40 mg capsule Take 1 capsule by mouth once daily. doxycycline monohydrate 100 mg tablet Take 1 tablet by mouth two times a day for 5 days. tiZANidine (ZANAFLEX) 4 mg tablet Take 2 tablets by mouth every 8 hours as needed (muscle spasms). dulaglutide (TRULICITY) 4.5 mg/0.5 mL pen injector Inject 4.5 mg subcutaneously one time a week. gabapentin (NEURONTIN) 300 mg capsule Take 3 capsules by mouth two times a day for 180 days. blood sugar diagnostic (BLOOD GLUCOSE TRICE (more content not included)... [facility] 04-14-2025 Miscellaneous Notes Prescription Refill Information The patient has been identified by name and date of : Yes Caregiver verified no other encounters exist for this prescription request: Yes Caregiver confirmed with patient/requestor that no other refills are due, in the near future, with this provider at this time: Yes The last office visit in the department: 11/20/2024 Does the patient have a future office visit with this provider/department: Yes Requested Prescriptions Pending Prescriptions Disp Refills tiZANidine (ZANAFLEX) 4 mg tablet 180 tablet 1 Sig: Take 2 tablets by mouth every 8 hours as needed (muscle spasms). Winifred Doyle April 14, 2025 9:26 AM documented in this encounter [facility] 04-14-2025 Telephone encounter Note Prescription Refill Information The patient has been identified by name and date of : Yes Caregiver verified no other encounters exist for this prescription request: Yes Caregiver confirmed with patient/requestor that no other refills are due, in the near future, with this provider at this time: Yes The last office visit in the department: 11/20/2024 Does the patient have a future office visit with this provider/department: Yes Requested Prescriptions Pending Prescriptions Disp Refills tiZANidine (ZANAFLEX) 4 mg tablet 180 tablet 1 Sig: Take 2 tablets by mouth every 8 hours as needed (muscle spasms). Winifred Doyle April 14, 2025 9:26 AM [facility] 03-20-2025 Discharge summary [facility] 03-20-2025 Discharge summary Note Date/Time March 20, 2025 12:26pm [facility] [address] [place] [address] / REHABILITATION SERVICES DISCHARGE SUMMARY MR#: [id number] Acct: [id number] Name: CHICA SHAH Rep #: [id number] : 1965 59 From: Schuyler Conway DPT, OCS, CSCS Referring Dr.: Dr. Hemalatha Negro MD Status: REG RCR Insurance: [employer] INSURANCE Discharge Summary D/C summary: It has been my pleasure to treat CHICA SHAH referred by Dr. Hemalatha Negro MD, with the diagnosis of Back pain, neck pain for a total of 6 visit(s). Discharge Date: 03/20/25 Please see the following information for a summary of their discharge status. Subjective Subjective: Not doing much better pain lorenzo, saw Sruthi last week adn is puttingin for injections in neck and LB. Pain is about the same 5-8/10. LB is killer 9/10 at times. Was daniel last night sitting and it was hurting pretty good. Did up to 8 hours worth. HEP at counter: hurt a little. Pool can hurt LB but feeels better in the water. Pain Neck, shoulder baldes.: Pain Intensity (Out of 10): 5 LBP: Pain Intensity (Out of 10): 5 Overall Improvement % Improvement: 0 Objective Objective/Function: Lumb ar AROM ext min limited and painful. SB without increaseed pain, flexion slow but not painful, just stretchy. Walks into PT without antalgia and stiff but I with gait and transfers. 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 d/c sentence: If there are questions or concerns regarding this patient's physical therapy, please feel free to call me at [phone]. Thank you for the referral of thispatient. Sincerely, Schuyler Conway, DPT, OCS, CSCS Balance/Gait/Functional tests Balance/Special Test Scores Oswestry Low Back Score: 25 Improvement % Improvement: 0 <Electronically signed by Schuyler JACKSONT, OCS, CSCS> 03/20/25 1048 CC: Dr. Hemalatha Negro MD; Dr. Jabari Murillo MD ~ EBG Signed [facility] Work Phone: [phone]) 919-525407-08-2025 Telephone encounter Note* Telephone Encounter - Kimmie Braswell LPN - 02/25/2025 12:24 PM EDT Pt calls to report that insurance is requiring the rx to trulicity to be sent to [facility] in order for it to be covered. Prescription Refill Information The patient has been identified by name and date of : Yes Caregiver verified no other encounters exist for this prescription request: Yes Caregiver confirmed with patient/requestor that no other refills are due, in the near future, with this provider at this time: Yes The last office visit in the department: 11/20/24 Does the patient have a future office visit with this provider/department: Yes 05/12/25 Requested Prescriptions Pending Prescriptions Disp Refills dulaglutide (TRULICITY) 4.5 mg/0.5 mL pen injector 2 mL 11 Sig: Inject 4.5 mg subcutaneously one time a week. Kimmie Braswell LPN February 25, 2025 12:26 PM [facility]07-08-2025 Miscellaneous Notes* Telephone Encounter - Kimmie Braswell LPN - 02/25/2025 12:24 PM EDT Pt calls to report that insurance is requiring the rx to trulicity to be sent to [facility] in order for it to be covered. Prescription Refill Information The patient has been identified by name and date of : Yes Caregiver verified no other encounters exist for this prescription request: Yes Caregiver confirmed with patient/requestor that no other refills are due, in the near future, with this provider at this time: Yes The last office visit in the department: 11/20/24 Does the patient have a future office visit with this provider/department: Yes 05/12/25 Requested Prescriptions Pending Prescriptions Disp Refills dulaglutide (TRULICITY) 4.5 mg/0.5 mL pen injector 2 mL 11 Sig: Inject 4.5 mg subcutaneously one time a week. Kimmie Braswell LPN February 25, 2025 12:26 PM [facility] Telephone encounter Note * Telephone Encounter - Azalia Haas LPN - 02/13/2025 10:25 AM EDT Patient has refill for Omeprazole. Patient has been identified by name and date of : Yes Patient phones for refill(s): Requested Prescriptions Pending Prescriptions Disp Refills gabapentin (NEURONTIN) 300 mg capsule 180 capsule 5 Sig: Take 3 capsules by mouth two times a day for 180 days. tiZANidine (ZANAFLEX) 4 mg tablet 180 tablet 1 Sig: Take 2 tablets by mouth every 8 hours as needed (muscle spasms). Date of last office visit in primary care: 11/20/2024 Date of next office visit in primary care: 05/12/2025 Please advise. Thank you. Azalia Haas LPN. [facility]06-26-2025 Miscellaneous Notes* Telephone Encounter - Azalia Haas LPN - 02/13/2025 10:25 AM EDT Patient has refill for Omeprazole. Patient has been identified by name and date of : Yes Patient phones for refill(s): Requested Prescriptions Pending Prescriptions Disp Refills gabapentin (NEURONTIN) 300 mg capsule 180 capsule 5 Sig: Take 3 capsules by mouth two times a day for 180 days. tiZANidine (ZANAFLEX) 4 mg tablet 180 tablet 1 Sig: Take 2 tablets by mouth every 8 hours as needed (muscle spasms). Date of last office visit in primary care: 11/20/2024 Date of next office visit in primary care: 05/12/2025 Please advise. Thank you. Azalia Haas LPN. * Telephone Encounter - Zoë Rincon - 02/13/2025 10:05 AM EDT Prescription Refill Information The patient has been identified by name and date of : Yes Caregiver verified no other encounters exist for this prescription request: Yes Caregiver confirmed with patient/requestor that no other refills are due, in the near future, with this provider at this time: Yes The last office visit in the department: 11/20/24 Does the patient have a future office visit with this provider/department: Yes Requested Prescriptions Pending Prescriptions Disp Refills omeprazole (PRILOSEC) 40 mg capsule 90 capsule 1 Sig: Take 1 capsule by mouth once daily. gabapentin (NEURONTIN) 300 mg capsule 180 capsule 5 Sig: Take 3 capsules by mouth two times a day for 180 days. tiZANidine (ZANAFLEX) 4 mg tablet 180 tablet 1 Sig: Take 2 tablets by mouth every 8 hours as needed (muscle spasms). Zoë Rincon February 13, 2025 10:06 AM documented in [facility] Telephone encounter Note * Telephone Encounter - Zoë Rincon - 02/13/2025 10:05 AM EDT Prescription Refill Information The patient has been identified by name and date of : Yes Caregiver verified no other encounters exist for this prescription request: Yes Caregiver confirmed with patient/requestor that no other refills are due, in the near future, with this provider at this time: Yes The last office visit in the department: 11/20/24 Does the patient have a future office visit with this provider/department: Yes Requested Prescriptions Pending Prescriptions Disp Refills omeprazole (PRILOSEC) 40 mg capsule 90 capsule 1 Sig: Take 1 capsule by mouth once daily. gabapentin (NEURONTIN) 300 mg capsule 180 capsule 5 Sig: Take 3 capsules by mouth two times a day for 180 days. tiZANidine (ZANAFLEX) 4 mg tablet 180 tablet 1 Sig: Take 2 tablets by mouth every 8 hours as needed (muscle spasms). Zoë Rincon February 13, 2025 10:06 AM [facility]06-04-2025 Telephone encounter Note* Telephone Encounter - Azalia Haas LPN - 01/22/2025 2:33 PM EDT Patient does have RX on file at [facility], pharmacy will get ready for pickup. Azalia Haas LPN [facility]06-04-2025 Miscellaneous Notes* Telephone Encounter - Azalia Haas LPN - 01/22/2025 2:33 PM EDT Patient does have RX on file at [facility], pharmacy will get ready for pickup. Azalia Haas LPN * Telephone Encounter - Cassie Soriano - 01/22/2025 2:10 PM EDT Prescription Refill Information The patient has been identified by name and date of : Yes Caregiver verified no other encounters exist for this prescription request: Yes Caregiver confirmed with patient/requestor that no other refills are due, in the near future, with this provider at this time: Yes The last office visit in the department: 11-20-24 Does the patient have a future office visit with this provider/department: Yes Requested Prescriptions Pending Prescriptions Disp Refills DULoxetine (CYMBALTA) 20 mg capsule 90 capsule 1 Sig: Take 1 capsule by mouth once daily. Added to 60 mg capsule. Cassie Harris January 22, 2025 2:12 PM documented in [facility] Telephone encounter Note * Telephone Encounter - Cassie Soriano - 01/22/2025 2:10 PM EDT Prescription Refill Information The patient has been identified by name and date of : Yes Caregiver verified no other encounters exist for this prescription request: Yes Caregiver confirmed with patient/requestor that no other refills are due, in the near future, with this provider at this time: Yes The last office visit in the department: 11-20-24 Does the patient have a future office visit with this provider/department: Yes Requested Prescriptions Pending Prescriptions Disp Refills DULoxetine (CYMBALTA) 20 mg capsule 90 capsule 1 Sig: Take 1 capsule by mouth once daily. Added to 60 mg capsule. Cassie Harris January 22, 2025 2:12 PM [facility]05-05-2025 Telephone encounter Note* Telephone Encounter - Lauryn Alvarenga MA - 12/23/2024 11:37 AM EDT Patient has been identified by name and date of : yes Patient phones for refill(s): Requested Prescriptions Pending Prescriptions Disp Refills tiZANidine (ZANAFLEX) 4 mg tablet 180 tablet 1 Sig: Take 2 tablets by mouth every 8 hours as needed (muscle spasms). Date of last office visit in primary care: 11/20/2024 Date of next office visit in primary care: 05/12/2025 Please advise. Thank you. Lauryn Alvarenga MA. [facility]05-05-2025 Miscellaneous Notes* Telephone Encounter - Lauryn Alvarenga MA - 12/23/2024 11:37 AM EDT Patient has been identified by name and date of : yes Patient phones for refill(s): Requested Prescriptions Pending Prescriptions Disp Refills tiZANidine (ZANAFLEX) 4 mg tablet 180 tablet 1 Sig: Take 2 tablets by mouth every 8 hours as needed (muscle spasms). Date of last office visit in primary care: 11/20/2024 Date of next office visit in primary care: 05/12/2025 Please advise. Thank you. Lauryn Alvarenga MA. * Telephone Encounter - Christianne Liu - 12/23/2024 9:10 AM EDT Patient has been identified by name and date of : Yes, Provider Dr. Murillo Date 12/23/24 [id number] Patient phones for refill(s): Requested Prescriptions Pending Prescriptions Disp Refills tiZANidine (ZANAFLEX) 4 mg tablet 180 tablet 1 Sig: Take 2 tablets by mouth every 8 hours as needed (muscle spasms). Date of last office visit in primary care: 11/20/2024 Date of next office visit in primary care: 05/12/2025 Please advise. Thank you. Christianne Liu. documented in this encounter[facility] Telephone encounter Note * Telephone Encounter - Christianne Liu - 12/23/2024 9:10 AM EDT Patient has been identified by name and date of : Yes, Provider Dr. Murillo Date 12/23/24 [id number] Patient phones for refill(s): Requested Prescriptions Pending Prescriptions Disp Refills tiZANidine (ZANAFLEX) 4 mg tablet 180 tablet 1 Sig: Take 2 tablets by mouth every 8 hours as needed (muscle spasms). Date of last office visit in primary care: 11/20/2024 Date of next office visit in primary care: 05/12/2025 Please advise. Thank you. Christianne Liu. [facility]04-08-2025 Telephone encounter Note* Telephone Encounter - Brooke Ramos RN - 11/26/2024 12:59 PM EDT [facility] [employer] phoned to report Prior Auth of [place] [employer] has been approved from 11-25-24 to 12-24-24. Authorization # [id number] [facility]04-08-2025 Miscellaneous Notes* Telephone Encounter - Brooke Ramos RN - 11/26/2024 12:59 PM EDT [facility] [employer] phoned to report Prior Auth of [employer] has been approved from 11-25-24 to 12-24-24. Authorization # [id number] documented in [facility] NoteHNO ID: [id number] Author: JABARI MURILLO MD Service: ? Author Type: Physician Type: Progress Notes Filed: 11/20/2024 09:30 Note Text: This note was created using [employer]. Subjective Chica Shah is a 59 year old female. She was here for follow up. She was having more chronic pains, especially of her right hip and leg. She was interested in a higher dose of duloxetine, which was effective for her chronic pains and fibromyalgia. She used tizanidine on a regular basis, and we reviewed the risks of this medication. She was asking for a refill, but I informed her she still had refills. She had another syncope 1 week ago, and was here with a bruised left periorbital area. She denied domestic abuse. She had been referred for tilt table testing in the past but was unable to do the test. She was due for labs. Her diabetes mellitus, hypertension and lipids were historically controlled. Review of Systems Constitutional: Negative for fatigue, fever and unexpected weight change. HENT: Negative for congestion. Eyes: Negative for visual disturbance. Respiratory: Negative for chest tightness and shortness of breath. Cardiovascular: Positive for leg swelling. Negative for chest pain and palpitations. Genitourinary: Negative. Musculoskeletal: Positive for arthralgias and myalgias. Negative for gait problem. Skin: Negative for wound. Neurological: Positive for syncope. Negative for dizziness, weakness, numbness and headaches. Psychiatric/Behavioral: Negative. 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) Hyperlipidemia Fatty Liver Gastric Bypass Status for Obesity Urine, Incontinence, Stress Female Hot Flashes Due to Surgical Menopause Fibromyalgia Cervicalgia Insomnia Due to Medical Condition Muscular Weakness Falls Frequently Obesity, Class I, Bmi 30-34.9 Intertrigo Syncope Tachycardia Ascending Aorta Dilation Social History Tobacco Use Smoking status: Never Passive exposure: Current Smokeless tobacco: Never Vaping Use Vaping status: Never Used Substance Use Topics Alcohol use: No Drug use: No Current Outpatient Medications Medication Sig miglitol (GLYSET) 25 mg tablet Take 1 tablet by mouth three times a day as needed (with meals as directed.). ergocalciferol 50,000 unit capsule (VITAMIN D2, DRISDOL) Take 1 capsule by mouth one time a week. pyrilamine-dextromethorphan (CAPRON DMT) 30-30 mg tab Take 1 tablet by mouth every 6 hours as needed. tiZANidine (ZANAFLEX) 4 mg tablet Take 2 tablets by mouth every 8 hours as needed (muscle spasms). gabapentin (NEURONTIN) 300 mg capsule Take 3 capsules by mouth two times a day for 180 days. DULoxetine (CYMBALTA) 60 mg capsule Take 1 capsule by mouth once daily. omeprazole (PRILOSEC) 40 mg capsule Take 1 capsule by mouth once daily. amLODIPine (NORVASC) 5 mg tablet Take 1 tablet by mouth once daily. levothyroxine (SYNTHROID) 88 mcg tablet Take 1 tablet by mouth daily before breakfast. losartan (COZAAR) 25 mg tablet Take 1 tablet by mouth once daily. cyanocobalamin 1,000 mcg/mL Inject once a week on Tuesdays for 3 weeks, then once a month Syringe with Needle, Disp, (SYRINGE 3CC/25GX1) 3 mL 25 gauge x 1 For B12 injections dulaglutide (TRULICITY) 4.5 mg/0.5 mL pen injector Inject 4.5 mg subcutaneously one time a week. atorvastatin (LIPITOR) 20 mg tablet Take 1 tablet by mouth three times a week. dupilumab 300 mg/2 mL subcutaneous syringe ([employer]) Inject subcutaneously. ZINC OXIDE TOPICAL Apply to affected area. triamcinolone acetonide (KENALOG) 0.1 % ointment Apply to affected area two times a day. blood sugar diagnostic (BLOOD GLUCOSE TEST) test strip Test blood sugar(s) 2 times daily. Dx: Type 2 DM - Uncontrolled E11.65 Insulin: No Lancets lancets Test 3 times weekly, Insulin Dep? No E11.9 DM 2 nystatin-triamcinolone (MYCOLOG) ointment Apply sparingly to skin area with rash twice daily as needed. diclofenac sodium (VOLTAREN) 1 % topical gel Apply 2 g to affected area four times daily as needed (pain.). diphenhydramine HCl (BENADRYL ALLERGY ORAL) Take 2 capsules by mouth daily at bedtime. No current facility-administered medications for this visit. Objective BP 122/72 (BP Site: Left Arm, BP Position: Sitting, BP Cuff Size: Large Adult) Pulse 80 Temp 36.4 ?C (97.6 ?F) (Temporal) Resp 16 Wt 67.8 kg (149 lb 7.6 oz) LMP 11/21/2007 BMI 27.34 kg/m? Physical Exam Constitutional: General: She is not in acute distress. HENT: Nose: Nose normal. Eyes: Extraocular Movements: Extraocular movements intact. Conjunctiva/sclera: Conjunctivae normal. Comments: Ecchymosis left periorbital area. Cardiovascular: Rate and Rhythm: Normal rate and regular rhythm. Heart sounds: No murmur heard. No gallop. Pulmonary: Breath sounds: Normal breath sound (more content not included)...[facility]04-02-2025 History of Present illness Narrative* Jabari Murillo MD - 11/20/2024 8:45 AM EDT This note was created using NoteWriter. Subjective Chica Shah is a 59 year old female. She was here for follow up. She was having more chronic pains, especially of her right hip and leg.She was interested in a higher dose of duloxetine, which was effective for her chronic pains and fibromyalgia. She used tizanidine on a regular basis, and we reviewed the risks of this medication. She was asking for a refill, but I informed her she still had refills. She had another syncope 1 week ago, and was here with a bruised left periorbital area. She denied domestic abuse. She had been referred for tilt table testing in the past but was unable to do the test. She was due for labs. Her diabetes mellitus, hypertension and lipids were historically controlled. Review of Systems Constitutional: Negative for fatigue, fever and unexpected weight change. HENT: Negative for congestion. Eyes: Negative for visual disturbance. Respiratory: Negative for chest tightness and shortness of breath. Cardiovascular: Positive for leg swelling. Negative for chest pain and palpitations. Genitourinary: Negative. Musculoskeletal: Positive for arthralgias and myalgias. Negative for gait problem. Skin: Negative for wound. Neurological: Positive for syncope. Negative for dizziness, weakness, numbness and headaches. Psychiatric/Behavioral: Negative. 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) Hyperlipidemia Fatty Liver Gastric Bypass Status for Obesity Urine, Incontinence, Stress Female Hot Flashes Due to Surgical Menopause Fibromyalgia Cervicalgia Insomnia Due to Medical Condition Muscular Weakness Falls Frequently Obesity, Class I, Bmi 30-34.9 Intertrigo Syncope Tachycardia Ascending Aorta Dilation Social History Tobacco Use Smoking status: Never Passive exposure: Current Smokeless tobacco: Never Vaping Use Vaping status: Never Used Substance Use Topics Alcohol use: No Drug use: No Current Outpatient Medications Medication Sig miglitol (GLYSET) 25 mg tablet Take 1 tablet by mouth three times a day as needed (with meals as directed.). ergocalciferol 50,000 unit capsule (VITAMIN D2, DRISDOL) Take 1 capsule by mouth one time a week. pyrilamine-dextromethorphan (CAPRON DMT) 30-30 mg tab Take 1 tablet by mouth every 6 hours as needed. tiZANidine (ZANAFLEX) 4 mg tablet Take 2 tablets by mouth every 8 hours as needed (muscle spasms). gabapentin (NEURONTIN) 300 mg capsule Take 3 capsules by mouth two times a day for 180 days. DULoxetine (CYMBALTA) 60 mg capsule Take 1 capsule by mouth once daily. omeprazole (PRILOSEC) 40 mg capsule Take 1 capsule by mouth once daily. amLODIPine (NORVASC) 5 mg tablet Take 1 tablet by mouth once daily. levothyroxine (SYNTHROID) 88 mcg tablet Take 1 tablet by mouth daily before breakfast. losartan (COZAAR) 25 mg tablet Take 1 tablet by mouth once daily. cyanocobalamin 1,000 mcg/mL Inject once a week on Tuesdays for 3 weeks, then once a month Syringe with Needle, Disp, (SYRINGE 3CC/25GX1) 3 mL 25 gauge x 1 For B12 injections dulaglutide (TRULICITY) 4.5 mg/0.5 mL pen injector Inject 4.5 mg subcutaneously one time a week. atorvastatin (LIPITOR) 20 mg tablet Take 1 tablet by mouth three times a week. dupilumab 300 mg/2 mL subcutaneous syringe ([employer]) Inject subcutaneously. ZINC OXIDE TOPICAL Apply to affected area. triamcinolone acetonide (KENALOG) 0.1 % ointment Apply to affected area two times a day. blood sugar diagnostic (BLOOD GLUCOSE TEST) test strip Test blood sugar(s) 2 times daily. Dx: Type 2 DM - Uncontrolled E11.65 Insulin: No Lancets lancets Test 3 times weekly, Insulin Dep? No E11.9 DM 2 nystatin-triamcinolone (MYCOLOG) ointment Apply sparingly to skin area with rash twice daily as needed. diclofenac sodium (VOLTAREN) 1 % topical gel Apply 2 g to affected area four times daily as needed (pain.). diphenhydramine HCl (BENADRYL ALLERGY ORAL) Take 2 capsules by mouth daily at bedtime. No current facility-administered medications for this visit. Objective BP 122/72 (BP Site: Left Arm, BP Position: Sitting, BP Cuff Size: Large Adult) Pulse 80 Temp 36.4 C (97.6 F) (Temporal) Resp 16 Wt 67.8 kg (149 lb 7.6 oz) LMP 11/21/2007 BMI 27.34 kg/m Physical Exam Constitutional: General: She is not in acute distress. HENT: Nose: Nose normal. Eyes: Extraocular Movements: Extraocular movements intact. Conjunctiva/sclera: Conjunctivae normal. Comments: Ecchymosis left periorbital area. Cardiovascular: Rate and Rhythm: Normal rate and regular rhythm. Heart sounds: No murmur heard. No gallop. Pulmonary: Breath sounds: Normal breath sounds. Abdominal: Tenderness: There is no abdominal tenderness. Musculoskeletal: General: No tenderness. Right lower leg: No edema. Left lower leg: No edema. Neurological: General: No focal deficit present. Mental Status: She is alert. Gait: Gait normal. Feet:Shoes and socks removed, No deformities, ulcers, calluses, normal distal pulses, and sensitiveto 10 gm monofilament. Assessment and Plan 1. Syncope, unspecified syncope type - ICD9: 780.2, ICD10: R55 (primary diagnosis) Intermittent. She was unable to do - COMPRESSION STOCKINGS. We agreed to trial compression and see if these can be prevented. She needs to use this daily. 2. Fibromyalgia - ICD9: 729.1, ICD10: M79.7 Shared medical decision making was done. Dose increased to 80 mg daily total. - DULOXETINE 60 MG CAPSULE,DELAYED RELEASE - DULOXETINE 20 MG CAPSULE,DELAYED RELEASE 3. Screening for depression - ICD9: V79.0, ICD10: Z13.31 - DEPRESSION SCREENING 4. Encounter for screening examination for other mental health and behavioral disorders - ICD9: V79.8, ICD10: Z13.39 - ANXIETY SCREENING 5. Contusion of face, initial encounter - ICD9: 920, ICD10: S00.83XA - Resolving. 6. 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) - ICD9: 250.00, 278.00, ICD10: E11.69, E66.9 - Control undetermined, due for labs - Continue current medications - BLOOD SUGAR DIAGNOSTIC STRIPS - LANCETS - ALBUMIN/CREATININE RATIO, URINE - COMPREHENSIVE METABOLIC PANEL - LIPID PANEL, FASTING - HEMOGLOBIN A1C - CONSULT TO OPHTHALMOLOGY 7. Vitamin D deficiency - ICD9: 268.9, ICD10: E55.9 Recheck. - VITAMIN D 25 HYDROXY 8. Primary hypertension - ICD9: 401.9, ICD10: I10 - Controlled - Continue current medications - AMLODIPINE 5 MG TABLET 9. Hypothyroidism, unspecified type - ICD9: 244.9, ICD10: E03.9 - continue current dose of Synthroid - LEVOTHYROXINE 88 MCG TABLET - THYROID STIMULATING HORMONE 10. Vitamin B12 deficiency - ICD9: 266.2, ICD10: E53.8 Recheck. - CYANOCOBALAMIN (VIT B-12) 1,000 MCG/ML INJECTION SOLUTION - SYRINGE 3 ML 25 GAUGE X 1 - COMPLETE BLOOD COUNT - VITAMIN B12 11. Ascending aorta dilation - ICD9: 447.71, ICD10: I77.810 Recheck. Patient indicated understanding and willingness to follow recommendations. - ECHO - PERFLUTREN LIPID MICROSPHERES 1.1 MG/ML INJECTION IN NS 10 ML - SODIUM CHLORIDE 0.9 % (FLUSH) INJECTION SYRINGE 12. Need for COVID-19 vaccine - ICD9: V04.89, ICD10: Z23 - PFIZER-BIONTECH COVID-19 VACCINE AGE 12+ YR (COMIRNATY) 13. Gastric bypass status for obesity - ICD9: V45.86, ICD10: Z98.84 - OMEPRAZOLE 40 MG CAPSULE,DELAYED RELEASE Jabari Murillo MD documented in this encounterMet[facility] NoteHNO ID: [id number] Author: CECILIA WHITLOCK APRN.BOBTAIL DRIVER Service: ? Author Type: Nurse Practitioner Type: Progress Notes Filed: 11/01/2024 08:27 Note Text: CC: Patient presents with: URI: X 1 month HPI Chica is a 59-year-old female presenting for evaluation of a respiratory infection with associated symptoms. The patient consented to the use of [employer] software for draft documentation of the visit consistent with [facility]?s Notice of Privacy Practices. Respiratory Infection: - Symptoms x1 month, including: - Persistent cough, productive of green-yellow sputum. - Dyspnea, especially with exertion (e.g., climbing stairs). - Wheezing. - Chills, no fever. - Headache. - Facial pain/pressure localized to cheekbones - Sore throat. - Rhinorrhea and nasal congestion, with green-yellow discharge and occasional blood tinged - Symptoms initially improved but worsened on Monday. - Taking OTC cold and sinus medication with temporary relief. - Denies dental pain. - History of pneumonia. - Seasonal/environmental allergies, managed with Benadryl 2 tablets nightly. - Negative COVID-19 test at symptom onset. - Denies smoking history. Review of Systems See HPI PAST MEDICAL HISTORY Diagnosis Date Ascending aorta dilation (HCC) 08/19/2023 COVID-19 virus infection 06/12/2020 Diabetes mellitus type 2 in obese 06/01/2011 Displaced fracture of base of fifth metacarpal bone of right hand with routine healing 02/11/2016 DJD (degenerative joint disease) left knee, hips Dysmetabolic syndrome X 03/14/2008 impaired fasting glucose Extensor intersection syndrome 12/30/2013 Fatty liver 07/20/2011 VIRGEN Fibromyalgia 06/03/2014 Gastric bypass status for obesity 07/2011 Hot flashes due to surgical menopause 11/17/2010 Hyperlipidemia 07/20/2011 Hypothyroidism Knee pain 12/06/2010 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 05/19/2015 Unspecified essential hypertension Urine, incontinence, stress female 12/02/2011 Vitamin D deficiency PAST SURGICAL HISTORY Procedure Laterality Date BUNIONECTOMY, LAPIDUS-TYPE Right 09/16/2022 Dr. Santizo DELIVERY ONLY 08/21/2000 , low transverse COLONOSCOPY - DIAGNOSTIC 10/29/2020 EGD 10/29/2020 GASTRIC BYPASS, SHASHA-EN-Y 08/16/2011 laparoscopic, [facility] HYSTERECTOMY HX 08/21/2007 Menorrhagia, Vaginal hysterectomy LAPAROSCOPIC CHOLECYSTECTOMY 12/02/2020 ROTATOR CUFF REPAIR 06/10/2014 Dr. Hansen, Right shoulder ROTATOR CUFF REPAIR 09/09/2014 Redo, right shoulder. SALPINGO-OOPHORECTOMY COMPL/PRTL UNI/BI SPX 08/21/2008 b/l due to pain TONSILLECTOMY HX 08/21/2005 ALLERGIES Celebrex [Celecoxib], Latex, and Nsaids (Non-Steroidal Anti-Inflammatory Drug) MEDICATIONS tiZANidine (ZANAFLEX) 4 mg tablet Take 2 tablets by mouth every 8 hours as needed (muscle spasms). gabapentin (NEURONTIN) 300 mg capsule Take 3 capsules by mouth two times a day for 180 days. DULoxetine (CYMBALTA) 60 mg capsule Take 1 capsule by mouth once daily. omeprazole (PRILOSEC) 40 mg capsule Take 1 capsule by mouth once daily. amLODIPine (NORVASC) 5 mg tablet Take 1 tablet by mouth once daily. levothyroxine (SYNTHROID) 88 mcg tablet Take 1 tablet by mouth daily before breakfast. losartan (COZAAR) 25 mg tablet Take 1 tablet by mouth once daily. cyanocobalamin 1,000 mcg/mL Inject once a week on Tuesdays for 3 weeks, then once a month dulaglutide (TRULICITY) 4.5 mg/0.5 mL pen injector Inject 4.5 mg subcutaneously one time a week. atorvastatin (LIPITOR) 20 mg tablet Take 1 tablet by mouth three times a week. dupilumab 300 mg/2 mL subcutaneous syringe ([employer]) Inject subcutaneously. ZINC OXIDE TOPICAL Apply to affected area. triamcinolone acetonide (KENALOG) 0.1 % ointment Apply to affected area two times a day. blood sugar diagnostic (BLOOD GLUCOSE TEST) test strip Test blood sugar(s) 2 times daily. Dx: Type 2 DM - Uncontrolled E11.65 Insulin: No Lancets lancets Test 3 times weekly, Insulin Dep? No E11.9 DM 2 diclofenac sodium (VOLTAREN) 1 % topical gel Apply 2 g to affected area four times daily as needed (pain.). diphenhydramine HCl (BENADRYL ALLERGY ORAL) Take 2 capsules by mouth daily at bedtime. miglitol (GLYSET) 25 mg tablet Take 1 tablet by mouth three times a day as needed (with meals as directed.). ergocalciferol 50,000 unit capsule (VITAMIN D2, DRISDOL) Take 1 capsule by mouth one time a week. amoxicillin-clavulanate potassium (AUGMENTIN) 500-125 mg per tablet Take 1 tablet by mouth every 12 hours for 7 days. pyrilamine-dextromethorphan (CAPRON DMT) 30-30 mg tab Take 1 tablet by mouth every 6 hours as needed. Syringe with Needle, Disp, (SYRINGE 3CC/25GX1) 3 mL 25 gauge x 1 For B12 injections nystatin-triamcinolone (MYCOLOG) ointment Apply sparingly to skin area with rash twice daily as needed. FAMILY HISTORY Adopted: Yes Problem Relation Age of Onset Diabetes Mot (more content not included)...[facility]03-14-2025 History of Present illness Narrative* Cecilia Whitlock, MRI MANAGER.BOBTAIL DRIVER - 11/01/2024 8:22 AM EDT CC: Patient presents with: URI: X 1 month HPI Chica is a 59-year-old female presenting for evaluation of a respiratory infection with associated symptoms. The patient consented to the use of [employer] software for draft documentation of the visit consistent with [facility] s Notice of Privacy Practices. Respiratory Infection: - Symptoms x1 month, including: - Persistent cough, productive of green-yellow sputum. - Dyspnea, especially with exertion (e.g., climbing stairs). - Wheezing. - Chills, no fever. - Headache. - Facial pain/pressure localized to cheekbones - Sore throat. - Rhinorrhea and nasal congestion, with green-yellow discharge and occasional blood tinged - Symptoms initially improved but worsened on Monday. - Taking OTC cold and sinus medication with temporary relief. - Denies dental pain. - History of pneumonia. - Seasonal/environmental allergies, managed with Benadryl 2 tablets nightly. - Negative COVID-19 test at symptom onset. - Denies smoking history. Review of Systems See HPI PAST MEDICAL HISTORY Diagnosis Date Ascending aorta dilation (HCC) 08/19/2023 COVID-19 virus infection 06/12/2020 Diabetes mellitus type 2 in obese 06/01/2011 Displaced fracture of base of fifth metacarpal bone of right hand with routine healing 02/11/2016 DJD (degenerative joint disease) left knee, hips Dysmetabolic syndrome X 03/14/2008 impaired fasting glucose Extensor intersection syndrome 12/30/2013 Fatty liver 07/20/2011 VIRGEN Fibromyalgia 06/03/2014 Gastric bypass status for obesity 07/2011 Hot flashes due to surgical menopause 11/17/2010 Hyperlipidemia 07/20/2011 Hypothyroidism Knee pain 12/06/2010 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 05/19/2015 Unspecified essential hypertension Urine, incontinence, stress female 12/02/2011 Vitamin D deficiency PAST SURGICAL HISTORY Procedure Laterality Date BUNIONECTOMY, LAPIDUS-TYPE Right 09/16/2022 Dr. Santizo DELIVERY ONLY 08/21/2000 , low transverse COLONOSCOPY - DIAGNOSTIC 10/29/2020 EGD 10/29/2020 GASTRIC BYPASS, SHASHA-EN-Y 08/16/2011 laparoscopic, [facility] HYSTERECTOMY HX 08/21/2007 Menorrhagia, Vaginal hysterectomy LAPAROSCOPIC CHOLECYSTECTOMY 12/02/2020 ROTATOR CUFF REPAIR 06/10/2014 Dr. Hansen, Right shoulder ROTATOR CUFF REPAIR 09/09/2014 Redo, right shoulder. SALPINGO-OOPHORECTOMY COMPL/PRTL UNI/BI SPX 08/21/2008 b/l due to pain TONSILLECTOMY HX 08/21/2005 ALLERGIES Celebrex [Celecoxib], Latex, and Nsaids (Non-Steroidal Anti- Inflammatory Drug) MEDICATIONS tiZANidine (ZANAFLEX) 4 mg tablet Take 2 tablets by mouth every 8 hours as needed (muscle spasms). gabapentin (NEURONTIN) 300 mg capsule Take 3 capsules by mouth two times a day for 180 days. DULoxetine (CYMBALTA) 60 mg capsule Take 1 capsule by mouth once daily. omeprazole (PRILOSEC) 40 mg capsule Take 1 capsule by mouth once daily. amLODIPine (NORVASC) 5 mg tablet Take 1 tablet by mouth once daily. levothyroxine (SYNTHROID) 88 mcg tablet Take 1 tablet by mouth daily before breakfast. losartan (COZAAR) 25 mg tablet Take 1 tablet by mouth once daily. cyanocobalamin 1,000 mcg/mL Inject once a week on Tuesdays for 3 weeks, then once a month dulaglutide (TRULICITY) 4.5 mg/0.5 mL pen injector Inject 4.5 mg subcutaneously one time a week. atorvastatin (LIPITOR) 20 mg tablet Take 1 tablet by mouth three times a week. dupilumab 300 mg/2 mL subcutaneous syringe ([employer]) Inject subcutaneously. ZINC OXIDE TOPICAL Apply to affected area. triamcinolone acetonide (KENALOG) 0.1 % ointment Apply to affected area two times a day. blood sugar diagnostic (BLOOD GLUCOSE TEST) test strip Test blood sugar(s) 2 times daily. Dx: Type 2 DM - Uncontrolled E11.65 Insulin: No Lancets lancets Test 3 times weekly, Insulin Dep? No E11.9 DM 2 diclofenac sodium (VOLTAREN) 1 % topical gel Apply 2 g to affected area four times daily as needed (pain.). diphenhydramine HCl (BENADRYL ALLERGY ORAL) Take 2 capsules by mouth daily at bedtime. miglitol (GLYSET) 25 mg tablet Take 1 tablet by mouth three times a day as needed (with meals as directed.). ergocalciferol 50,000 unit capsule (VITAMIN D2, DRISDOL) Take 1 capsule by mouth one time a week. amoxicillin-clavulanate potassium (AUGMENTIN) 500-125 mg per tablet Take 1 tablet by mouth every 12hours for 7 days. pyrilamine-dextromethorphan (CAPRON DMT) 30-30 mg tab Take 1 tablet by mouth every 6 hours as needed. Syringe with Needle, Disp, (SYRINGE 3CC/25GX1) 3 mL 25 gauge x 1 For B12 injections nystatin-triamcinolone (MYCOLOG) ointment Apply sparingly to skin area with rash twice daily as needed. FAMILY HISTORY Adopted: Yes Problem Relation Age of Onset Diabetes Mother Cancer Mother Stroke Mother Diabetes Father at age 46 Diabetes Sister Diabetes Sister Hypertension Sister Hypertension Sister Social History Tobacco Use Smoking status: Never Passive exposure: Current Smokeless tobacco: Never Vaping Use Vaping status: Never Used Substance Use Topics Alcohol use: No Drug use: No BP 120/78 Pulse 100 Temp 36.6 C (97.9 F) Resp 14 Wt 67.7 kg (149 lb 4 oz) LMP 11/21/2007 SpO2 100% BMI 27.30 kg/m Physical Exam Vitals reviewed. Constitutional: General: She is not in acute distress. Appearance: She is ill-appearing. She is not toxic-appearing. HENT: Head: Normocephalic and atraumatic. Right Ear: Tympanic membrane normal. Left Ear: Tympanic membrane normal. Nose: Right Sinus: Maxillary sinus tenderness present. No frontal sinus tenderness. Left Sinus: Maxillary sinus tenderness present. No frontal sinus tenderness. Mouth/Throat: Mouth: Mucous membranes are moist. Pharynx: Oropharynx is clear. Eyes: Conjunctiva/sclera: Conjunctivae normal. Cardiovascular: Rate and Rhythm: Normal rate and regular rhythm. Heart sounds: Normal heart sounds. No murmur heard. Pulmonary: Effort: Pulmonary effort is normal. Breath sounds: Normal breath sounds. No wheezing, rhonchi or rales. Lymphadenopathy: Cervical: No cervical adenopathy. Skin: General: Skin is warm and dry. 1. Acute non-recurrent maxillary sinusitis (J01.00) - Prescribed Augmentin 875 mg orally twice daily for 7 days; advised to complete the full course even if symptoms improve. - Prescribed [place] DM, 1 tablet every 6 hours as needed for cough. - Discussed that cough and sinus symptoms may persist but should improve with treatment. - Advised on low contagiousness at this stage; recommended covering cough and considering mask use if concerned about transmission. - follow-up in 2-3 days if no improvement or sooner if worsening 2. Acute cough (R05.1) As above 3. Hypothyroidism, unspecified type (E03.9) Labs ordered 4. 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) (HCC) (E11.69) - Routine follow-up scheduled with Dr. Edmond on 11/19. - Ordered fasting blood work to be done a few days before the appointment to check cholesterol levels. Prescription instructions reviewed with patient as applicable. Potential red flag symptoms discussed with the patient. Reviewed appropriate action plan to take if red flag symptoms occur. Patient agreeable to treatment plan. Cecilia Whitlock APRN.CNP Medical Decision Making: Problems: Moderate: Acute illness with systemic symptoms Data: Unique test(s) ordered: 1 Risk: Low: Low risk from testing/treatment Moderate: Drug management Medical Decision Making Level: 4 - Moderate documented in [facility] encounter[facility] Instructions* Patient Instructions* Cecilia Whitlock APRN.CNP - 11/01/2024 8:22 AM EDT - Take Augmentin 1 tablet twice a day for 7 days; make sure to complete the full course even if youstart feeling better. - Take [place] 1 tablet every 6 hours as needed for cough. - Continue taking Benadryl 2 tablets every night for allergies. - Keep your routine follow-up appointment with Dr. Edmond on 11/19. - Complete fasting blood work a few days before your appointment with Dr. Edmond. documented in this encounterMet[facility]03-11-2025 Telephone encounter Note * Telephone Encounter - Qian Light - 10/29/2024 3:26 PM EDT Prescription Refill Information The patient has been identified by name and date of : Yes Caregiver verified no other encounters exist for this prescription request: Yes Caregiver confirmed with patient/requestor that no other refills are due, in the near future, with this provider at this time: Yes The last office visit in the department: Does the patient have a future office visit with this provider/department: Yes Requested Prescriptions Pending Prescriptions Disp Refills tiZANidine (ZANAFLEX) 4 mg tablet 180 tablet 1 Sig: Take 2 tablets by mouth every 8 hours as needed (muscle spasms). Qian Harris October 29, 2024 3:26 PM [facility]03-11-2025 Miscellaneous Notes* Telephone Encounter - Qian Light - 10/29/2024 3:26 PM EDT Prescription Refill Information The patient has been identified by name and date of : Yes Caregiver verified no other encounters exist for this prescription request: Yes Caregiver confirmed with patient/requestor that no other refills are due, in the near future, with this provider at this time: Yes The last office visit in the department: Does the patient have a future office visit with this provider/department: Yes Requested Prescriptions Pending Prescriptions Disp Refills tiZANidine (ZANAFLEX) 4 mg tablet 180 tablet 1 Sig: Take 2 tablets by mouth every 8 hours as needed (muscle spasms). Qian Harris October 29, 2024 3:26 PM documented in this encounterMet[facility]01-10-2025 Telephone encounter Note * Telephone Encounter - Viviana Richardson - 08/30/2024 11:36 AM EST Prescription Refill Information The patient has been identified by name and date of : Yes Caregiver verified no other encounters exist for this prescription request: Yes Caregiver confirmed with patient/requestor that no other refills are due, in the near future, with this provider at this time: Yes The last office visit in the department: 05-21-24 Does the patient have a future office visit with this provider/department: Yes Requested Prescriptions Pending Prescriptions Disp Refills gabapentin (NEURONTIN) 300 mg capsule 180 capsule 5 Sig: Take 3 capsules by mouth two times a day for 180 days. tiZANidine (ZANAFLEX) 4 mg tablet 180 tablet 1 Sig: Take 2 tablets by mouth every 8 hours as needed (muscle spasms). Viviana Harris August 30, 2024 11:37 AM [facility]01-10-2025 Miscellaneous Notes* Telephone Encounter - Viviana Richardson - 08/30/2024 11:36 AM EST Prescription Refill Information The patient has been identified by name and date of : Yes Caregiver verified no other encounters exist for this prescription request: Yes Caregiver confirmed with patient/requestor that no other refills are due, in the near future, with this provider at this time: Yes The last office visit in the department: 05-21-24 Does the patient have a future office visit with this provider/department: Yes Requested Prescriptions Pending Prescriptions Disp Refills gabapentin (NEURONTIN) 300 mg capsule 180 capsule 5 Sig: Take 3 capsules by mouth two times a day for 180 days. tiZANidine (ZANAFLEX) 4 mg tablet 180 tablet 1 Sig: Take 2 tablets by mouth every 8 hours as needed (muscle spasms). Viviana Harris August 30, 2024 11:37 AM documented in this encounterMet[facility]12-19-2024 History of Present illness Narrative* Snehal Clark Mammo Tech - 08/08/2024 8:10 AM EST Radiology Service Progress Note PATIENT NAME: Chica Shah DATE OF SERVICE: August 08, 2024 TIME: 7:54 AM PATIENT IDENTITY VERIFICATION COMPLETED USING TWO (2) IDENTIFIERS: Name and Date of confirmedby patient verbally. FALL SCREENING: Has the patient had 2 falls in the last year or 1 fall with injury or currently using an Ambulatory Assistive Device (Walker, Cane, Wheelchair, Crutches, etc.)? No PATIENT GENDER DATA: Female. status: : No status: NO. PATIENT RELEVANT IMPLANT DATA REVIEWED: Not Applicable PATIENT PRESENTS WITH AN IMPLANTABLE OR ATTACHED RADIOLOGY THERAPIST: No RADIOLOGY DEPARTMENT: Mammography PERIPHERAL IV DATA: Not applicable SIGNED BY: Alysia Son August 08, 2024 7:54 AM documented in this encounterMet[facility]12-19-2024 NoteHNO ID: [id number] Author: SNEHAL CLARK Mammo Tech Service: ? Author Type: District Administrator Type: Progress Notes Filed: 08/08/2024 07:54 Note Text: Radiology Service Progress Note PATIENT NAME: Chica Shah DATE OF SERVICE: August 08, 2024 TIME: 7:54 AM PATIENT IDENTITY VERIFICATION COMPLETED USING TWO (2) IDENTIFIERS: Name and Date of confirmed by patient verbally. FALL SCREENING: Has the patient had 2 falls in the last year or 1 fall with injury or currently using an Ambulatory Assistive Device (Walker, Cane, Wheelchair, Crutches, etc.)? No PATIENT GENDER DATA: Female. status: : No status: NO. PATIENT RELEVANT IMPLANT DATA REVIEWED: Not Applicable PATIENT PRESENTS WITH AN IMPLANTABLE OR ATTACHED RADIOLOGY THERAPIST: No RADIOLOGY DEPARTMENT: Mammography PERIPHERAL IV DATA: Not applicable SIGNED BY: Alysia Son August 08, 2024 7:54 [facility]11-12-2024 Telephone encounter Note* Telephone Encounter - Adele Esteves - 07/02/2024 9:21 AM EST Patient aware some listed have 1 refill left, but would like refills sent in again on them. Patient has been identified by name and date of : Yes, Patient phones for refill(s): Requested Prescriptions Pending Prescriptions Disp Refills tiZANidine (ZANAFLEX) 4 mg tablet 180 tablet 2 Sig: Take 2 tablets by mouth every 8 hours as needed (muscle spasms). DULoxetine (CYMBALTA) 60 mg capsule 90 capsule 1 Sig: Take 1 capsule by mouth once daily. omeprazole (PRILOSEC) 40 mg capsule 30 capsule 11 Sig: Take 1 capsule by mouth once daily. amLODIPine (NORVASC) 5 mg tablet 90 tablet 1 Sig: Take 1 tablet by mouth once daily. levothyroxine (SYNTHROID) 88 mcg tablet 90 tablet 1 Sig: Take 1 tablet by mouth daily before breakfast. Date of last office visit in primary care: 05/21/2024 Date of next office visit in primary care: 11/19/2024 Please advise. Thank you. Adele Esteves. [facility]11-12-[facility] Miscellaneous Notes* Telephone Encounter - Adele Esteves - 07/02/2024 9:21 AM EST Patient aware some listed have 1 refill left, but would like refills sent in again on them. Patient has been identified by name and date of : Yes, Patient phones for refill(s): Requested Prescriptions Pending Prescriptions Disp Refills tiZANidine (ZANAFLEX) 4 mg tablet 180 tablet 2 Sig: Take 2 tablets by mouth every 8 hours as needed (muscle spasms). DULoxetine (CYMBALTA) 60 mg capsule 90 capsule 1 Sig: Take 1 capsule by mouth once daily. omeprazole (PRILOSEC) 40 mg capsule 30 capsule 11 Sig: Take 1 capsule by mouth once daily. amLODIPine (NORVASC) 5 mg tablet 90 tablet 1 Sig: Take 1 tablet by mouth once daily. levothyroxine (SYNTHROID) 88 mcg tablet 90 tablet 1 Sig: Take 1 tablet by mouth daily before breakfast. Date of last office visit in primary care: 05/21/2024 Date of next office visit in primary care: 11/19/2024 Please advise. Thank you. Adele Esteves. documented in this encounterMet[facility]10-01-2024 History of Present illness Narrative* Cecilia Whitlock, MRI MANAGER.BOBTAIL DRIVER - 05/21/2024 8:00 AM EDT CC Patient presents with: Blood Pressure HPI Chica Shah is a 58 year old female who presents to the office for blood pressure. Her visit today is for follow-up. Patient was last seen for this approximately 1 month ago. Medication changes: Yes she was started on Losartan 25 mg daily. Norvasc 5 mg daily was not increased due to intermittent ankle edema Taking all medications as prescribed: Yes Side effects: No Home BP's: No Denies: headache, chest pain, palpitations, dyspnea, and peripheral edema. Last 4 Encounter BP Readings: Date: BP: 04/23/2024 152/106[bp evie average[ 02/12/2024 138/90 01/08/2024 113/74 12/06/2023 132/90 Last 3 Encounter Wt Readings: Date: Wt: 04/23/2024 67.1 kg (147 lb 14.9 oz) 03/13/2024 68 kg (149 lb 14.6 oz) 02/12/2024 68.9 kg (152 lb) Review of Systems See HPI PAST MEDICAL HISTORY Diagnosis Date Ascending aorta dilation (HCC) 08/19/2023 COVID-19 virus infection 06/12/2020 Diabetes mellitus type 2 in obese 06/01/2011 Displaced fracture of base of fifth metacarpal bone of right hand with routine healing 02/11/2016 DJD (degenerative joint disease) left knee, hips Dysmetabolic syndrome X 03/14/2008 impaired fasting glucose Extensor intersection syndrome 12/30/2013 Fatty liver 07/20/2011 VIRGEN Fibromyalgia 06/03/2014 Gastric bypass status for obesity 07/2011 Hot flashes due to surgical menopause 11/17/2010 Hyperlipidemia 07/20/2011 Hypothyroidism Knee pain 12/06/2010 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 05/19/2015 Unspecified essential hypertension Urine, incontinence, stress female 12/02/2011 Vitamin D deficiency PAST SURGICAL HISTORY Procedure Laterality Date BUNIONECTOMY, LAPIDUS-TYPE Right 09/16/2022 Dr. Santizo DELIVERY ONLY 08/21/2000 , low transverse COLONOSCOPY - DIAGNOSTIC 10/29/2020 EGD 10/29/2020 GASTRIC BYPASS, SHASHA-EN-Y 08/16/2011 laparoscopic, [facility] HYSTERECTOMY HX 08/21/2007 Menorrhagia, Vaginal hysterectomy LAPAROSCOPIC CHOLECYSTECTOMY 12/02/2020 ROTATOR CUFF REPAIR 06/10/2014 Dr. Hansen, Right shoulder ROTATOR CUFF REPAIR 09/09/2014 Redo, right shoulder. SALPINGO-OOPHORECTOMY COMPL/PRTL UNI/BI SPX 08/21/2008 b/l due to pain TONSILLECTOMY HX 08/21/2005 ALLERGIES Celebrex [Celecoxib], Latex, and Nsaids (Non-Steroidal Anti- Inflammatory Drug) MEDICATIONS DULoxetine (CYMBALTA) 60 mg capsule Take 1 capsule by mouth once daily. dulaglutide (TRULICITY) 4.5 mg/0.5 mL pen injector Inject 4.5 mg subcutaneously one time a week. ergocalciferol 50,000 unit capsule (VITAMIN D2, DRISDOL) Take 1 capsule by mouth one time a week. levothyroxine (SYNTHROID) 88 mcg tablet Take 1 tablet by mouth daily before breakfast. losartan (COZAAR) 25 mg tablet Take 1 tablet by mouth once daily. tiZANidine (ZANAFLEX) 4 mg tablet Take 2 tablets by mouth every 8 hours as needed (muscle spasms). atorvastatin (LIPITOR) 20 mg tablet Take 1 tablet by mouth three times a week. gabapentin (NEURONTIN) 300 mg capsule Take 3 capsules by mouth two times a day for 180 days. dupilumab 300 mg/2 mL subcutaneous syringe (DUPIXMitomics) Inject subcutaneously. ZINC OXIDE TOPICAL Apply to affected area. amLODIPine (NORVASC) 5 mg tablet Take 1 tablet by mouth once daily. cyanocobalamin 1,000 mcg/mL Inject once a week on Tuesdays for 3 weeks, then once a month Syringe with Needle, Disp, (SYRINGE 3CC/25GX1) 3 mL 25 gauge x 1 For B12 injections omeprazole (PRILOSEC) 40 mg capsule Take 1 capsule by mouth once daily. triamcinolone acetonide (KENALOG) 0.1 % ointment Apply to affected area two times a day. miglitol (GLYSET) 25 mg tablet Take 1 tablet by mouth three times daily as needed (with meals as directed.). blood sugar diagnostic (BLOOD GLUCOSE TEST) test strip Test blood sugar(s) 2 times daily. Dx: Type 2 DM - Uncontrolled E11.65 Insulin: No Lancets lancets Test 3 times weekly, Insulin Dep? No E11.9 DM 2 nystatin-triamcinolone (MYCOLOG) ointment Apply sparingly to skin area with rash twice daily as needed. diclofenac sodium (VOLTAREN) 1 % topical gel Apply 2 g to affected area four times daily as needed (pain.). diphenhydramine HCl (BENADRYL ALLERGY ORAL) Take 2 capsules by mouth daily at bedtime. FAMILY HISTORY Adopted: Yes Problem Relation Age of Onset Diabetes Mother Cancer Mother Stroke Mother Diabetes Father at age 46 Diabetes Sister Diabetes Sister Hypertension Sister Hypertension Sister Social History Tobacco Use Smoking status: Never Passive exposure: Current Smokeless tobacco: Never Vaping Use Vaping status: Never Used Substance Use Topics Alcohol use: No Drug use: No BP 106/72 Pulse 83 Resp 16 Wt 66.2 kg (145 lb 15.1 oz) LMP 11/21/2007 SpO2 100% BMI 26.69 kg/m Physical Exam Vitals reviewed. Constitutional: Appearance: Normal appearance. Cardiovascular: Rate and Rhythm: Normal rate and regular rhythm. Pulmonary: Effort: Pulmonary effort is normal. Breath sounds: Normal breath sounds. Neurological: Mental Status: She is alert. Psychiatric: Mood and Affect: Mood normal. ASSESSMENT/PLAN: 1. Primary hypertension - ICD9: 401.9, ICD10: I10 (primary diagnosis) - Controlled - Continue current medications - Recommend home blood pressure monitoring, to bring results to next visit - Encouraged sodium restriction, DASH or Mediterranean diet - Recommend regular aerobic exercise 2. Encounter for screening mammogram for breast cancer - ICD9: V76.12, ICD10: Z12.31 - JORDAN SCREENING W DENEEN 3. Encounter for immunization - ICD9: V03.89, ICD10: Z23 - TDAP VACCINE, AGE 7+ YR (ADACEL, BOOSTRIX) Prescription instructions reviewed with patient as applicable. Potential red flag symptoms discussed with the patient. Reviewed appropriate action plan to take if red flag symptoms occur. Patient agreeable to treatment plan Cecilia Whitlock APRN.BOBTAIL DRIVER documented in this encounterMet[facility]09-16-2024 Telephone encounter Note * Telephone Encounter - Faye Lewis LPN - 05/06/2024 9:51 AM EDT Fax rec'd Appeal reviewed and the trulicity 4.5mg has been approved from 05/06/24 to 05/06/25. Pt notified via my chart. [facility] Miscellaneous Notes* Telephone Encounter - Faye Lewis LPN - 05/06/2024 9:51 AM EDT Fax rec'd Appeal reviewed and the trulicity 4.5mg has been approved from 05/06/24 to 05/06/25. Pt notified via my chart. * Telephone Encounter - Faye Lewis LPN - 05/03/2024 2:09 PM EDT Pt has been taking trulicity since 2020. Appeal requested for review. * Telephone Encounter - Faye Lewis LPN - 05/03/2024 8:16 AM EDT Confidential UM Information for: Member Name: CHICA SHAH Date of : 1965 Date Created:05/01/2024 Reference Number: [id number] Medication: TRULICITY 4.5 MG/0.5 ML PEN Provider: Cecilia Whitlock Denial Reason: Medical Necessity Important information about the request you or your doctor asked us to review. [employer] provides utilization management services for [facility]. Dear Cecilia Whitlock: Recently, you or your doctor asked us to review a request for medication. We reviewed the request and it is not approved. We d like to explain why. We denied your request because we did not see what we need to approve the drug you asked for, (Trulicity). We may be able to approve this drug when we see certain records (if documentation is provided that your diagnosis has been verified by history of at least one of the following: hemoglobin A1c [A1C] greaterthan or equal to 6.5%; fasting plasma glucose [FPG] greater than or equal to 126 milligrams per deciliter [mg/dL] after fasting for at least 8 hours; two hour plasma glucose greater than or equal to 200 mg/dL as part of an oral glucose tolerance test [75 grams oral glucose after fasting for at least 8 hours];or symptoms of hyperglycemia [including polyuria, polydipsia, polyphagia] and a random plasma glucose greater than or equal to 200 mg/dL). We based this decision on your health plan s prior authorization clinical criteria named Glucagon-Like Peptide-1 (GLP-1) Receptor Agonist * Telephone Encounter - Faye Lewis LPN - 05/01/2024 9:22 AM EDT PA completed and waiting for review. * Telephone Encounter - Faye Lewis LPN - 05/01/2024 8:34 AM EDT Electronic PA requested. * Telephone Encounter - Brooke Ramos RN - 04/30/2024 11:43 AM EDT Prior Authorization Documentation Prior authorization requested for the following medication: Medication: Trulicity 4.5 Provider: [place] Name: [email or web address] Phone number: [phone] Patient ID number: [id number] Pharmacy Name: [facility] Telephone number: [phone] documented in this encounterMet[facility]09-13-2024 Telephone encounter Note * Telephone Encounter - Faye Lewis LPN - 05/03/2024 2:09 PM EDT Pt has been taking trulicity since 2020. Appeal requested for review. [facility]09-13-[facility] Telephone encounter Note* Telephone Encounter - Faye Lewis LPN - 05/03/2024 8:16 AM EDT Confidential UM Information for: Member Name: CHICA SHAH Date of : 1965 Date Created:05/01/2024 Reference Number: [id number] Medication: TRULICITY 4.5 MG/0.5 ML PEN Provider: Cecilia Whitlock Denial Reason: Medical Necessity Important information about the request you or your doctor asked us to review. [employer] provides utilization management services for [facility]. Dear Cecilia Whitlcok: Recently, you or your doctor asked us to review a request for medication. We reviewed the request and it is not approved. We d like to explain why. We denied your request because we did not see what we need to approve the drug you asked for, (Trulicity). We may be able to approve this drug when we see certain records (if documentation is provided that your diagnosis has been verified by history of at least one of the following: hemoglobin A1c [A1C] greaterthan or equal to 6.5%; fasting plasma glucose [FPG] greater than or equal to 126 milligrams per deciliter [mg/dL] after fasting for at least 8 hours; two hour plasma glucose greater than or equal to 200 mg/dL as part of an oral glucose tolerance test [75 grams oral glucose after fasting for at least 8 hours];or symptoms of hyperglycemia [including polyuria, polydipsia, polyphagia] and a random plasma glucose greater than or equal to 200 mg/dL). We based this decision on your health plan s prior authorization clinical criteria named Glucagon-Like Peptide-1 (GLP-1) Receptor Agonist T [facility]09-11-2024 Telephone encounter Note* Telephone Encounter - Faye Lewis LPN - 05/01/2024 9:22 AM EDT PA completed and waiting for review. [facility] Telephone encounter Note* Telephone Encounter - Faye Lewis LPN - 05/01/2024 8:34 AM EDT Electronic PA requested. T [facility]09-10-2024 Telephone encounter Note* Telephone Encounter - Brooke Ramos RN - 04/30/2024 11:43 AM EDT Prior Authorization Documentation Prior authorization requested for the following medication: Medication: Trulicity 4.5 Provider: [employer] Company Name: [email or web address] Phone number: [phone] Patient ID number: [id number] Pharmacy Name: [facility] Telephone number: [phone] [facility] Telephone encounter Note* Telephone Encounter - Caridad Palacios - 04/29/2024 1:26 PM EDT Prescription Refill Information The patient has been identified by name and date of : Yes Caregiver verified no other encounters exist for this prescription request: Yes Caregiver confirmed with patient/requestor that no other refills are due, in the near future, with this provider at this time: Yes The last office visit in the department: 04/23/2025 Does the patient have a future office visit with this provider/department: Yes Requested Prescriptions Pending Prescriptions Disp Refills DULoxetine (CYMBALTA) 60 mg capsule 90 capsule 1 Sig: Take 1 capsule by mouth once daily. Caridad Palacios April 29, 2024 1:27 PM [facility] Miscellaneous Notes* Telephone Encounter - Caridad Palacios - 04/29/2024 1:26 PM EDT Prescription Refill Information The patient has been identified by name and date of : Yes Caregiver verified no other encounters exist for this prescription request: Yes Caregiver confirmed with patient/requestor that no other refills are due, in the near future, with this provider at this time: Yes The last office visit in the department: 04/23/2025 Does the patient have a future office visit with this provider/department: Yes Requested Prescriptions Pending Prescriptions Disp Refills DULoxetine (CYMBALTA) 60 mg capsule 90 capsule 1 Sig: Take 1 capsule by mouth once daily. Caridad Palacios April 29, 2024 1:27 PM documented in this encounterMetro[facility]09-03-2024 History of Present illness Narrative* Cecilia Whitlock APRN.[facility] - 04/23/2024 11:38 AM EDT CC: Patient presents with: 2 month follow up HPI Chica Shah is a 58 year old female who presents today for above. HTN-Medication changes:Yes Norvasc increased to 5 mg daily Taking all medications as prescribed: Yes Side effects: yes, intermittent swelling in the ankles Home BP's: No Denies: headache, chest pain, palpitations, dyspnea Last 3 Encounter BP Readings: Date: BP: 04/23/2024 155/108 02/12/2024 138/90 01/08/2024 113/74 Review of Systems See HPI PAST MEDICAL HISTORY 08/19/2023: Ascending aorta dilation (HCC) 06/12/2020: COVID-19 virus infection 06/01/2011: Diabetes mellitus type 2 in obese 02/11/2016: Displaced fracture of base of fifth metacarpal bone of right hand with routine healing No date: DJD (degenerative joint disease) Comment: left knee, hips 03/14/2008: Dysmetabolic syndrome X Comment: impaired fasting glucose 12/30/2013: Extensor intersection syndrome 07/20/2011: Fatty liver Comment: VIRGEN 06/03/2014: Fibromyalgia 07/2011: Gastric bypass status for obesity 11/17/2010: Hot flashes due to surgical menopause 07/20/2011: Hyperlipidemia No date: Hypothyroidism 12/06/2010: Knee pain 05/19/2015: 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 No date: Unspecified essential hypertension 12/02/2011: Urine, incontinence, stress female No date: Vitamin D deficiency PAST SURGICAL HISTORY 09/16/2022: BUNIONECTOMY, LAPIDUS-TYPE; Right Comment: Dr. Santizo 08/21/2000: DELIVERY ONLY Comment: , low transverse 10/29/2020: COLONOSCOPY - DIAGNOSTIC 10/29/2020: EGD 08/16/2011: GASTRIC BYPASS, SHASHA-EN-Y Comment: laparoscopic, [facility] 08/21/2007: HYSTERECTOMY HX Comment: Menorrhagia, Vaginal hysterectomy 12/02/2020: LAPAROSCOPIC CHOLECYSTECTOMY Comment: 06/10/2014: ROTATOR CUFF REPAIR Comment: Dr. Hansen, Right shoulder 09/09/2014: ROTATOR CUFF REPAIR Comment: Redo, right shoulder. 08/21/2008: SALPINGO-OOPHORECTOMY COMPL/PRTL UNI/BI SPX Comment: b/l due to pain 08/21/2005: TONSILLECTOMY HX ALLERGIES Celebrex [Celecoxib], Latex, and Nsaids (Non-Steroidal Anti- Inflammatory Drug) MEDICATIONS tiZANidine (ZANAFLEX) 4 mg tablet Take 2 tablets by mouth every 8 hours as needed (muscle spasms). atorvastatin (LIPITOR) 20 mg tablet Take 1 tablet by mouth three times a week. gabapentin (NEURONTIN) 300 mg capsule Take 3 capsules by mouth two times a day for 180 days. dulaglutide (TRULICITY) 4.5 mg/0.5 mL pen injector Inject 4.5 mg subcutaneously one time a week. dupilumab 300 mg/2 mL subcutaneous syringe (DUPIXENT) Inject subcutaneously. ZINC OXIDE TOPICAL Apply to affected area. amLODIPine (NORVASC) 5 mg tablet Take 1 tablet by mouth once daily. DULoxetine (CYMBALTA) 60 mg capsule Take 1 capsule by mouth once daily. levothyroxine (SYNTHROID) 88 mcg tablet Take 1 tablet by mouth daily before breakfast. ergocalciferol 50,000 unit capsule (VITAMIN D2, DRISDOL) Take 1 capsule by mouth one time a week. cyanocobalamin 1,000 mcg/mL Inject once a week on Tuesdays for 3 weeks, then once a month Syringe with Needle, Disp, (SYRINGE 3CC/25GX1) 3 mL 25 gauge x 1 For B12 injections omeprazole (PRILOSEC) 40 mg capsule Take 1 capsule by mouth once daily. triamcinolone acetonide (KENALOG) 0.1 % ointment Apply to affected area two times a day. miglitol (GLYSET) 25 mg tablet Take 1 tablet by mouth three times daily as needed (with meals as directed.). blood sugar diagnostic (BLOOD GLUCOSE TEST) test strip Test blood sugar(s) 2 times daily. Dx: Type 2 DM - Uncontrolled E11.65 Insulin: No Lancets lancets Test 3 times weekly, Insulin Dep? No E11.9 DM 2 nystatin-triamcinolone (MYCOLOG) ointment Apply sparingly to skin area with rash twice daily as needed. diclofenac sodium (VOLTAREN) 1 % topical gel Apply 2 g to affected area four times daily as needed (pain.). diphenhydramine HCl (BENADRYL ALLERGY ORAL) Take 2 capsules by mouth daily at bedtime. FAMILY HISTORY Adopted: Yes Problem Relation Age of Onset Diabetes Mother Cancer Mother Stroke Mother Diabetes Father at age 46 Diabetes Sister Diabetes Sister Hypertension Sister Hypertension Sister Social History Tobacco Use Smoking status: Never Passive exposure: Current Smokeless tobacco: Never Vaping Use Vaping status: Never Used Substance Use Topics Alcohol use: No Drug use: No BP 152/106 Pulse 92 Resp 16 Wt 67.1 kg (147 lb 14.9 oz) LMP 11/21/2007 BMI 27.06 kg/m Physical Exam Vitals reviewed. Cardiovascular: Rate and Rhythm: Normal rate and regular rhythm. Pulmonary: Effort: Pulmonary effort is normal. Breath sounds: Normal breath sounds. No wheezing, rhonchi or rales. Musculoskeletal: Right lower leg: No edema. Left lower leg: No edema. Neurological: Mental Status: She is alert. Health maintenance reviewed with patient: Depression Screening Never done Anxiety Screening Never done BP Controlled (<130/80) Never done DTaP,Tdap,Td Vaccine(1 - Tdap) due on 07/07/2009 Shingrix Vaccine(1 of 2) Never done Dilated Retinal Exam due on 05/06/2023 HbA1C due on 04/05/2024 Covid-19 Vaccine() due on 04/21/2024 Mammogram Screening due on 08/03/2024 Urine Albumin:Creatinine Ratio due on 10/06/2024 LDL Cholesterol due on 10/06/2024 Diabetic Foot Exam due on 11/05/2024 Annual PCP Team Chronic Disease Visit due on 02/11/2025 Colorectal Cancer Screening due on 10/29/2030 Hepatitis C Screening Completed HIV Screening Completed Cervical Cancer Screening Discontinued Influenza Vaccine Discontinued Pneumococcal Vaccine Discontinued DATA REVIEWED: Most recent labs ASSESSMENT/PLAN: 1. Primary hypertension - ICD9: 401.9, ICD10: I10 (primary diagnosis) - Uncontrolled. Factors affecting control include chronic pain and she also just had an argument with her daughter before coming to the appointment - Continue current medications, will avoid increasing Norvasc to 10 mg due to swelling - Start Losartan 25 mg daily - Recommend home blood pressure monitoring, to bring results to next visit - Encouraged sodium restriction, DASH or Mediterranean diet - Follow up in 4 weeks for hypertension visit 2. 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) (HCC) - ICD9: 250.00, 278.00, ICD10: E11.69, E66.9 - Controlled - Continue current medications - HEMOGLOBIN A1C (POC) today 5.8 Prescription instructions reviewed with patient as applicable. Potential red flag symptoms discussed with the patient. Reviewed appropriate action plan to take if red flag symptoms occur. Patient agreeable to treatment plan. Cecilia Whitlock APRN.BOBTAIL DRIVER [facility] Telephone encounter Note * Telephone Encounter - No Conway - 04/09/2024 3:46 PM EDT Received Medication denial letter for Outpatient Testing from [facility]. In scanned documents for review. [facility] Miscellaneous Notes* Telephone Encounter - No Conway - 04/09/2024 3:46 PM EDT Received Medication denial letter for Outpatient Testing from [facility]. In scanned documents for review. documented in this [facility] Telephone encounter Note * Telephone Encounter - Jabari Murillo MD - 04/02/2024 11:04 AM EDT The following approved medication requests have been transmitted electronically. Requested Prescriptions Signed Prescriptions Disp Refills tiZANidine (ZANAFLEX) 4 mg tablet 180 tablet 2 Sig: Take 2 tablets by mouth every 8 hours as needed (muscle spasms). Authorizing Provider: JABARI MURILLO atorvastatin (LIPITOR) 20 mg tablet 36 tablet 3 Sig: Take 1 tablet by mouth three times a week. Authorizing Provider: JABARI MURILLO MD [facility]08-13-[facility]24 Miscellaneous Notes* Telephone Encounter - Jabari Murillo MD - 04/02/2024 11:04 AM EDT The following approved medication requests have been transmitted electronically. Requested Prescriptions Signed Prescriptions Disp Refills tiZANidine (ZANAFLEX) 4 mg tablet 180 tablet 2 Sig: Take 2 tablets by mouth every 8 hours as needed (muscle spasms). Authorizing Provider: JABARI MURILLO atorvastatin (LIPITOR) 20 mg tablet 36 tablet 3 Sig: Take 1 tablet by mouth three times a week. Authorizing Provider: JABARI MURILLO MD * Telephone Encounter - Cassie Soriano - 04/02/2024 8:07 AM EDT Prescription Refill Information The patient has been identified by name and date of : Yes Caregiver verified no other encounters exist for this prescription request: Yes Caregiver confirmed with patient/requestor that no other refills are due, in the near future, with this provider at this time: Yes The last office visit in the department: 02-12-24 Does the patient have a future office visit with this provider/department: Yes Requested Prescriptions Pending Prescriptions Disp Refills tiZANidine (ZANAFLEX) 4 mg tablet 120 tablet 0 Sig: Take 2 tablets by mouth every 8 hours as needed (muscle spasms). atorvastatin (LIPITOR) 20 mg tablet 15 tablet 5 Sig: Take 1 tablet by mouth three times a week. Cassie Harris April 02, 2024 8:09 AM documented in this encounter[facility] Telephone encounter Note * Telephone Encounter - Cassie Soriano - 04/02/2024 8:07 AM EDT Prescription Refill Information The patient has been identified by name and date of : Yes Caregiver verified no other encounters exist for this prescription request: Yes Caregiver confirmed with patient/requestor that no other refills are due, in the near future, with this provider at this time: Yes The last office visit in the department: 02-12-24 Does the patient have a future office visit with this provider/department: Yes Requested Prescriptions Pending Prescriptions Disp Refills tiZANidine (ZANAFLEX) 4 mg tablet 120 tablet 0 Sig: Take 2 tablets by mouth every 8 hours as needed (muscle spasms). atorvastatin (LIPITOR) 20 mg tablet 15 tablet 5 Sig: Take 1 tablet by mouth three times a week. Cassie Harris April 02, 2024 8:09 AM [facility] Instructions* Patient Instructions* Alycia Rojas APRN.BOBTAIL DRIVER - 03/13/2024 1:04 PM EDT Images from the original note were not included. Acute Neck Pain Overview: Neck pain is common - about 3 out of 4 [place] adults will experience an episode of neck pain. Neck pain is also common after motor vehicle accidents ( whiplash ). The exact cause of acute neck pain is often not identified but most people recover with simple treatment in a few weeks. Serious (cancer, fracture, infection) causes of neck pain are rare and can be detected by a carefulexamination. X-rays or scans (MR or CT) are not recommended in most people with acute neck pain unless significant trauma has occurred. Treatment: Acute neck pain without severe trauma is almost always successfully treated with conservative (non-surgical) measures Brief use of a cervical collar (less than 72 hours) may be helpful in relieving pain but prolonged use may delay healing. Simple pain relievers are recommended - acetaminophen (Tylenol) or medications such as ibuprofen ornaproxen. Muscle relaxants may be helpful for up to two weeks. Stronger opioid (narcotic) pain relievers are not recommended and may delay recovery. Simple home exercises are recommended to speed recovery and restore normal neck motion. Remaining as active as possible and resuming normal activities as soon as tolerated is recommended. Follow Up: See your health care provider if: The pain doesn't improve or worsens within 2 weeks The pain moves from your neck into your arm You notice difficulty using your hands (buttoning, picking up coins) You notice weakness in your arms or legs You experience problems with balance or walking You notice difficulty passing your urine or controlling your bowels You develop fever Alycia Rojas APRN.[facility] Chica Shah, [id number] March 13, 2024 Chronic Cervical Radiculopathy (Arm Pain) Overview: Symptoms of a pinched nerve in the neck (cervical radiculopathy) include arm pain, numbness, tingling and even weakness. Arm pain is usually worse than neck pain. The cause of nerve impingement may include a protruding (herniated) disc, bony or joint overgrowth or both. Chronic cervical radiculopathy refers to symptoms that have been present longer than 12 weeks. The prognosis for a full recovery with conservative (non-surgical) treatment is good in most persons. X-rays or scans (MRI or CT) are not required in most patients before starting treatment but may be performed if symptoms aren't improving after about 6 weeks despite medical treatment. Surgical treatment is reserved for persons with intolerable arm pain despite good medical treatmentor when increasing weakness is developing in the arm. Surgery is also considered when spinal cord compression is suspected. Treatment: Pain-relieving anti-inflammatory medications such as ibuprofen or naproxen are recommended. Acetaminophen (Tylenol) is recommended if you cannot take anti- inflammatory medications. Medications effective for nerve pain such as gabapentin (Neurontin), pregabalin (Lyrica) or some antidepressants may be helpful for arm pain. A short course of oral steroids (prednisone or Medrol) may help alleviate severe, acute inflammation. For persistent pain despite oral medications and physical therapy, an epidural corticosteroid injection (block) may be recommended if an MRI or CT scan confirms nerve impingement (pinched nerve). Remaining as active as possible and resuming normal activities are recommended to speed recovery. Physical therapy is recommended for development of an active exercise treatment program. If weakness is developing in the affected arm or if pain is severe despite medical treatment, a surgical consultation may be recommended if an MRI or CT scan confirms nerve impingement. Spinal manipulation is not recommended for cervical radiculopathy and rarely causes severe injury. Follow Up See your health care provider if: The pain doesn't improve or worsens You notice increasing weakness in the arm You notice difficulty using your hands (buttoning, picking up coins) You experience problems with balance or walking You notice numbness or tingling below your waist or in your legs You notice difficulty passing urine or controlling your bowels These are warning signs or red flags that require prompt, urgent medical attention. SIGNATURE: Alycia Rojas APRN.CNP PATIENT NAME: Chica Shah DATE: March 13, 2024 TIME: 1:04 PM documented in this encounterMet[facility] History of Present illness Narrative* Alycia Rojas APRN.CNP - 03/13/2024 12:45 PM EDT Images from the original note were not included. [facility] Path Neck Pain - Chronic (> 12 weeks) Initial Exam SUBJECTIVE HISTORY OF PRESENT ILLNESS: Chica Shah is a 58 year old female who presents with a chief complaint of neck and arm pain and is seen in consultation requested by Dr. Marimar Villar for an opinion regarding cervicalgia. My final recommendations will be communicated back to the requesting physician by way of shared medical record or letter via US mail. Patient presents with neck and arm pain for months even years. Denies accident/injury Patients mother in law present with patient consent Prior to today's appointment she has been evaluated by her internal medicine provider with x-ray cervical spine and EMG testing completed. She has also been evaluated by pain management in the past with referral to chronic pain and rehabilitation program ordered at most recent evaluation. 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 Pain rated 8/10 Pain worse with driving, holding the stearing wheel, gardening Pain improved with Rest,heat Interventions: medications, heat, ice , chiropractor - in [place] - twice- spinal decompression therapy, Medications: Cymbalta, gabapentin, tizanidine , dual action tylenol/ aleve Past medications: meloxicam, diclofenac gel, naproxen, Physical Therapy: None Treating Physicians: Dr Murillo - PCP Marimar Villar [facility] - Internal Medicine - Referring Provider Dr Soni - Pain Management - 2022 - [facility] - did not scheduled Dr Webber - Pain Management - 2019 Lara Rosales [facility] - Neurology Dr Richmond -General Surgery Dr. Gan - Pain management - 2014 History of Spine Injections/Surgery: Cervical spine injections years ago not effective 2013 Rt shoulder surgery Gastric bypass Other Issues Addressed at the Visit Today: None. Precipitating Event: None PAIN EVALUATION 03/06/2024 1500 03/13/2024 1245 Pain Level: 7 8 Pain Location: -- Neck radiates to L arm Description: Aching;Burning;Dull;Itching Aching;Numbness;Tingling Duration Units: Weeks Months getting worse Frequency: Continuous Continuous Intervention/Comfort measure: Heat;Pillow support -- Comments: Neck constant burning aches -- Litigation: No Workers' Compensation: No YELLOW & BLUE FLAGS No-Neg Attitude; Back Pain is Disabling No-Avoiding Activity (for Fear of Pain) No-Depression or Anxiety Disorders No-Social Problems No-Substance Use Disorder No-Job Dissatisfaction No-Financial Disincentives Patient Entered Questionnaires 03/06/2024 Spine Questions Pain Location: Neck Pain Duration: More than 5 years Pain over last 6 months: Every day or nearly every day in the past 6 months Symptoms from neck/cervical spine: Yes Employment Status: Disabled due to back pain, permanently or temporarily Off work 1 month or more due to back/neck pain: Yes Applied for/receive disability/WC due to low back/neck pain No Involved in law suit/legal claim: No 03/06/2024 Spine Red Flags Any type of cancer: No Unexplained fever: No Bowel or bladder disfunction: No Unintentional weight loss: No Osteoporosis: No 03/06/2024 Neck Questionnaires Benzel Modified BRIAN Score 15 (Mild Myelopathy Symptoms) PROMIS Score Percentiles 03/06/2024 Physical Health Physical Function Percentile 7 Sleep Percentile 0 Fatigue Percentile 4 Pain Interference Percentile 4 03/06/2024 PROMIS SOCIAL ROLE SCORE Social Role Satisfaction Percentile 2 05/08/2023 01/08/2024 PROMIS Global Health Scale Physical Health Percentile 15 10 10 Mental Health Percentile 63 43 43 Percentiles provide an indication of how the patient's score ranks in relation to the general population. Higher percentile rankings indicate better function/quality of life. 50th percentile is the average of the general population and indicates half of respondents had a worse score. Depression Screenin04/10/2013 10/14/2019 03/06/2024 PHQ-9 Score 8 14 12 04/10/2013 10/14/2019 03/06/2024 PHQ-9 Self-harm Question Question 9 Not at all Not at all Not at all PHQ-9 Self-Harm (Item 9) response options: 0 Not at all 1 Several days 2 More than half the days 3 Nearly every day PHQ-9 Levels: 0-4 No - mild depression 5-9 Mild depression 10-14 Moderate depression 15-19 Moderately severe depression 20-27 Severe depression ACTIVE PROBLEM LIST Primary Hypertension Hypothyroidism Chronic Low Back Pain Vitamin D Deficiency Diabetes mellitus type 2 in obese (HCC) Hyperlipidemia Fatty Liver Gastric Bypass Status for Obesity Urine, Incontinence, Stress Female Hot Flashes Due to Surgical Menopause Fibromyalgia Cervicalgia Insomnia Due to Medical Condition Muscular Weakness Falls Frequently Obesity, Class I, Bmi 30-34.9 Intertrigo Syncope Elevated Blood Pressure Reading Tachycardia Ascending Aorta Dilation (Hcc) PAST MEDICAL HISTORY Diagnosis Date Ascending aorta dilation (HCC) 08/19/2023 COVID-19 virus infection 06/12/2020 Diabetes mellitus type 2 in obese 06/01/2011 Displaced fracture of base of fifth metacarpal bone of right hand with routine healing 02/11/2016 DJD (degenerative joint disease) left knee, hips Dysmetabolic syndrome X 03/14/2008 impaired fasting glucose Extensor intersection syndrome 12/30/2013 Fatty liver 07/20/2011 VIRGEN Fibromyalgia 06/03/2014 Gastric bypass status for obesity 07/2011 Hot flashes due to surgical menopause 11/17/2010 Hyperlipidemia 07/20/2011 Hypothyroidism Knee pain 12/06/2010 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 05/19/2015 Unspecified essential hypertension Urine, incontinence, stress female 12/02/2011 Vitamin D deficiency PAST SURGICAL HISTORY Procedure Laterality Date BUNIONECTOMY, LAPIDUS-TYPE Right 09/16/2022 Dr. Santizo DELIVERY ONLY 08/21/2000 , low transverse COLONOSCOPY - DIAGNOSTIC 10/29/2020 EGD 10/29/2020 GASTRIC BYPASS, SHASHA-EN-Y 08/16/2011 laparoscopic, [facility] HYSTERECTOMY HX 08/21/2007 Menorrhagia, Vaginal hysterectomy LAPAROSCOPIC CHOLECYSTECTOMY 12/02/2020 ROTATOR CUFF REPAIR 06/10/2014 Dr. Hansen, Right shoulder ROTATOR CUFF REPAIR 09/09/2014 Redo, right shoulder. SALPINGO-OOPHORECTOMY COMPL/PRTL UNI/BI SPX 08/21/2008 b/l due to pain TONSILLECTOMY HX 08/21/2005 Social History Tobacco Use Smoking status: Never Passive exposure: Current Smokeless tobacco: Never Vaping Use Vaping Use: Never used Substance Use Topics Alcohol use: No Drug use: No FAMILY HISTORY Adopted: Yes Problem Relation Age of Onset Diabetes Mother Cancer Mother Stroke Mother Diabetes Father at age 46 Diabetes Sister Diabetes Sister Hypertension Sister Hypertension Sister ALLERGIES Allergen Reactions Celebrex [Celecoxib] Rash Latex Intolerance burning feeling Nsaids (Non-Steroid* Other: See Comments Avoid due to Gastric Bypass CURRENT MEDICATIONS: gabapentin (NEURONTIN) 300 mg capsule Take 3 capsules by mouth two times a day for 180 days. tiZANidine (ZANAFLEX) 4 mg tablet Take 2 tablets by mouth every 8 hours as needed (muscle spasms). dulaglutide (TRULICITY) 4.5 mg/0.5 mL pen injector Inject 4.5 mg subcutaneously one time a week. dupilumab 300 mg/2 mL subcutaneous syringe (DUPIXENT) Inject subcutaneously. ZINC OXIDE TOPICAL Apply to affected area. dulaglutide (TRULICITY) 3 mg/0.5 mL pen injector Inject 3 mg subcutaneously one time a week. Take with Trulicity 1.5 mg to= 4.5 mg weekly dulaglutide (TRULICITY) 1.5 mg/0.5 mL pen injector Inject 1.5 mg subcutaneously one time a week. Take with Trulicity 3 mg to= 4.5 mg weekly amLODIPine (NORVASC) 5 mg tablet Take 1 tablet by mouth once daily. DULoxetine (CYMBALTA) 60 mg capsule Take 1 capsule by mouth once daily. levothyroxine (SYNTHROID) 88 mcg tablet Take 1 tablet by mouth daily before breakfast. atorvastatin (LIPITOR) 20 mg tablet Take 1 tablet by mouth three times a week. ergocalciferol 50,000 unit capsule (VITAMIN D2, DRISDOL) Take 1 capsule by mouth one time a week. cyanocobalamin 1,000 mcg/mL Inject once a week on Tuesdays for 3 weeks, then once a month Syringe with Needle, Disp, (SYRINGE 3CC/25GX1) 3 mL 25 gauge x 1 For B12 injections omeprazole (PRILOSEC) 40 mg capsule Take 1 capsule by mouth once daily. triamcinolone acetonide (KENALOG) 0.1 % ointment Apply to affected area two times a day. miglitol (GLYSET) 25 mg tablet Take 1 tablet by mouth three times daily as needed (with meals as directed.). blood sugar diagnostic (BLOOD GLUCOSE TEST) test strip Test blood sugar(s) 2 times daily. Dx: Type 2 DM - Uncontrolled E11.65 Insulin: No Lancets lancets Test 3 times weekly, Insulin Dep? No E11.9 DM 2 nystatin-triamcinolone (MYCOLOG) ointment Apply sparingly to skin area with rash twice daily as needed. diclofenac sodium (VOLTAREN) 1 % topical gel Apply 2 g to affected area four times daily as needed (pain.). diphenhydramine HCl (BENADRYL ALLERGY ORAL) Take 2 capsules by mouth daily at bedtime. REVIEW OF SYSTEMS: PAIN ASSESSMENT: See HPI. GENERAL: Denies fever, chills malaise and weight loss. HEENT: No recent change in vision or hearing. CARDIOVASCULAR: Hypertension AAA, hyperlipidemia RESPIRATORY: Denies SOB, sputum production, and hemoptysis. GI: Fatty Liver : Denies change in frequency or urgency, kidney disease, and burning with urination. MUSCULOSKELETAL: Positive for See HPI SKIN: Denies rash or itching. PSYCHOLOGICAL: Denies uncontrolled depression or anxiety. NEURO: Numbness ENDOCRINE: Positive for on trulicity, hypothyroid HEMATOLOGY/LYMPHOLOGY: Denies cancer, bleeding or clotting disorders, anemia,and DVT's. ALLERGIC/IMMUNOLOGICAL: Denies risks for infection, or recent MRSA infections. OBJECTIVE: PHYSICAL EXAM Ht 157.5 cm (5' 2) Wt 68 kg (149 lb 14.6 oz) LMP 11/21/2007 BMI 27.42 kg/m GENERAL APPEARANCE: Well appearing, well-hydrated, well nourished and alert SKIN: Head, neck, trunk, and extremities dry, multiple scabs t/o bilateral upper extremities - follows with dermatology outside [facility], is on dupexia for treatment LUNGS: even and non-labored breathing, normal chest excursion NEURO/PSYCH: oriented to time, place, and person, speech normal, mental status intact GAIT: normal, toe walking normal, heel walking normal, able to tandem gait POSTURE: Posture and spinal curves are normal PALPATION: no palpable masses, tenderness, or spasm, no palpable subluxation or step-off, no point tenderness over the spine MUSCULOSKELETAL: Extended Low Back & Leg Exam Lumbar Range of Motion Flexion To knees Extension Restricted RIGHT LEFT Lateral Bending Limited Limited Oblique Extension Decreased Decreased DTRs Knee Normal Normal Ankle Normal Normal Babinski normal normal Strength of Lower Extremities Extensor Hallux Longus 5/5 5/5 Ankle Dorsiflexion 5/5 5/5 Ankle Plantarflexion 5/5 5/5 Knee Extension 5/5 5/5 Saranya's Exam: Superficial non-anatomic tenderness: Yes Overreaction: Yes Pain on simulated maneuvers: Yes Straight Leg Raise test discrepancy: No Give-way weakness: No Non-dermatomal sensory loss: No @[id number]@ Cervical Range of Motion Flexion Restricted With pain Extension Normal With pain RIGHT LEFT Rotation Limited ROM with pain Limited ROM with pain Lateral Bend Limited ROM with pain Limited ROM with pain Upper Body Reflex Exam RIGHT LEFT Reflex Status Reflex Status Biceps 2+ Normal 2+ Normal Triceps 2+ Normal 2+ Normal Brachioradialis 2+ Normal 2+ Normal Inverted Radial 2+ Normal 2+ Normal Yin's Sign absent absent Upper Extremity Strength RIGHT LEFT Strength (MMT) Strength (MMT) Shoulder Abduction 5/5 5/5 Biceps 5/5 5/5 Triceps 5/5 5/5 Resisted Suppination 5/5 5/5 Wrist Extension 5/5 5/5 Interossei 5/5 5/5 Shoulder Range of Motion RIGHT LEFT Flexion Normal Normal Extension Normal Normal Abduction Normal Normal Adduction Normal Normal Internal Rotation Normal Normal External Rotation Normal Normal Shoulder Tests Neer Impingement Sign - Negative Empty Can Test - Negative Hawkin's-Stephan Test - Negative Speed's Test - Negative NEUROSENSORY: Soft touch; Within Normal Limits Lhermitte's test: Negative Spurling test: Negative Tinel's test: Negative Phalen's test: Negative Neuro Tests: None Data Review: [facility] reviewed Images independently reviewed with the patient Hemoglobin A1C (%) Date Value 10/06/2023 6.3 06/28/2023 6.4 04/25/2023 6.1 10/24/2022 5.8 06/13/2022 6.0 09/02/2021 7.8 05/28/2021 9.3 10/07/2019 7.8 04/04/2014 5.6 06/29/2013 5.4 Hemoglobin A1C (POCT) (%) Date Value 12/03/2021 5.8 EMG 02/14/2024: Extensive electrodiagnostic examination of the left upper extremity reveals the following changes: 1, Left median, ulnar and radial studies are normal. 2. Chronic motor axon loss changes consistent with intraspinal canal lesions/process affecting the left C5 root or segment (i.e, motor radiculopathy), mild in degree electrically, without being accompanied by evidence of active or ongoing motor fiber loss. Limited contralateral limb NEE reveals similar changes affecting the right C5 root/segment. XR CERVICAL - 12/05/2023 Moderate degenerative change and osteophytosis throughout the cervical spine. Most pronounced at C3-4, C5-6 and C6-7. Moderate disc space narrowing at these same levels. No fracture or prevertebral swelling. Normal lordosis. Alignment is normal. XR CERVICAL - 10/14/2019 Diffuse osteopenia. Endplate osteophyte formation at multiple levels in the cervical spine. Multilevel bilateral neural foraminal stenosis, more prominent on the right compared to the left. Facet hypertrophy is seen at multiple levels. No fracture. Prevertebral soft tissues are within normal limits. Imaged lung apices are clear. ASSESSMENT/PLAN Cervicalgia (primary encounter diagnosis) Cervical radiculopathy Ddd (degenerative disc disease), cervical Chica Shah is a 58 year old female with chronic neck and arm pain with numbness and tingling. HX Fibromyalgia: HTN, DM type II, AAA, fatty liver disease, hyperlipidemia, gastric bypass. EMG 02/14/2024: Extensive electrodiagnostic examination of the left upper extremity reveals the following changes: 1, Left median, ulnar and radial studies are normal. 2. Chronic motor axon loss changes consistent with intraspinal canal lesions/process affecting the left C5 root or segment (i.e, motor radiculopathy), mild in degree electrically, without being accompanied by evidence of active or ongoing motor fiber loss. Limited contralateral limb NEE reveals similar changes affecting the right C5 root/segment. XR CERVICAL - 12/05/2023: Moderate degenerative change and osteophytosis throughout the cervical spine. Most pronounced at C3-4, C5-6 and C6-7. Recently completed EMG and most recent cervical spine x-ray reviewed at time of today's appointmentalong with treatment considerations. Reviewed attending physical therapy with [facility] she has not attended recent physical therapy. She was agreeable. Order was signed and given as patient will be attending at [facility] as facility is closer to her residence. Chronic pain and rehabilitation program consultation was previously ordered by pain management, shehas not attended. Program was reviewed in detail and she is encouraged to attend. Medications indicated for use reviewed, no changes made to current regimen. At end of today's appointment patient states that she would like to return to the care of Dr. Webber and pain management. She was assisted at end of appointment with scheduling. She is aware that she will need to request release of care from Dr. Soni prior to Dr. Webber appointment. Medications indicated for use reviewed, no changes made to current regimen. 1. Imaging: None 2. Physical Therapy: Consult to w/ [facility] - signed and given 3. Medication:No changes 4. Referrals: PT 5. Considerations: MRI Cervical 6. Follow up: Request to follow up with Pain management - Dr. Webber Imaging Ordered: None SIGNATURE: Alycia Rojas APRN.CNP PATIENT NAME: Chica Shah DATE:March 13, 2024 TIME: 12:43 PM documented in this encounter[facility] Telephone encounter Note * Telephone Encounter - Jabari Murillo MD - 03/01/2024 10:13 AM EDT Patient requested MELOXICAM refill (at 's appointment). I explained risk of marginal ulceration due to her gastric bypass. Any oral NSAID is not recommended (ibuprofen, naproxen, meloxicam, etc.). Patient indicated understanding and willingness to follow recommendations. [facility]07-12-[facility] Miscellaneous Notes* Telephone Encounter - Jabari Murillo MD - 03/01/2024 10:13 AM EDT Patient requested MELOXICAM refill (at 's appointment). I explained risk of marginal ulceration due to her gastric bypass. Any oral NSAID is not recommended (ibuprofen, naproxen, meloxicam, etc.). Patient indicated understanding and willingness to follow recommendations. documented in this encounterMet[facility]-08-2024 Telephone encounter Note * Telephone Encounter - Viviana Christina - 02/26/2024 4:20 PM EDT Pt is scheduled on 03/13/24 with Spine [facility] Miscellaneous Notes* Telephone Encounter - Viviana Christina - 02/26/2024 4:20 PM EDT Pt is scheduled on 03/13/24 with Spine * Telephone Encounter - Frida Engle LPN - 02/26/2024 2:22 PM EDT Call patient and schedule with spine * Telephone Encounter - Frida Engle LPN - 02/26/2024 2:19 PM EDT Called patient name and confirmed regarding upcoming appt. Per patient I want to see spine not pain my appt is suppose to be with spine not pain management. Patient aware previously treated by pain mgmt Dr. Soni 05/2023 Patient aware appt with Dr Giang will be cancelled. documented in this encounterMet[facility] Telephone encounter Note * Telephone Encounter - Frida Engle LPN - 02/26/2024 2:22 PM EDT Call patient and schedule with spine [facility] Telephone encounter Note* Telephone Encounter - Frida Engle LPN - 02/26/2024 2:19 PM EDT Called patient name and confirmed regarding upcoming appt. Per patient I want to see spine not pain my appt is suppose to be with spine not pain management. Patient aware previously treated by pain mgmt Dr. Soni 05/2023 Patient aware appt with Dr Giang will be cancelled. [facility] History of Present illness Narrative* Wilder Rahman MD - 02/14/2024 10:05 AM EDT UNIVERSAL PROTOCOL / SAFETY CHECKLIST Procedure to be Performed: EMG Sign In: A Moment of CARE was completed. Personnel directly involved with the procedure wore the appropriate PPE (Personal Protective Equipment). Patient/Surrogate Stated/Verified: PATIENT VERIFIED(optional for EMERGENT procedures): Patient name, Date of , Relevant allergies, and The intended procedure Time Out Communication: Intended patient and procedure match the source documents. Correct side/site marked and visible. Sign Out: SIGN OUT (optional for EMERGENT procedures): Post-procedure follow-up management communicated and Plan of Care Visit completed when applicable. Danielle Levin EMG Tech Wilder Ramhan MD documented in this encounterMet[facility]06-24-[facility]24 Telephone encounter Note * Telephone Encounter - Jaimie Shah LPN - 02/12/2024 12:06 PM EDT Left a detailed message that medication was called to the pharmacy. Jaimie Shah LPN [facility] Miscellaneous Notes* Telephone Encounter - Jaimie Shah LPN - 02/12/2024 12:06 PM EDT Left a detailed message that medication was called to the pharmacy. Jaimie Shah LPN * Telephone Encounter - Brooke Ramos RN - 02/12/2024 10:30 AM EDT Patient reports [facility] has 2 boxes of 4.5 mg trulicity and that is all they can get. Asking Cecilia to send new Rx toña, so she can get these. Pended but unsure what ml's to order. Last ov: 02-12-24. documented in this encounterMet[facility]06-24-2024 Telephone encounter Note * Telephone Encounter - Brooke Ramos RN - 02/12/2024 10:30 AM EDT Patient reports [facility] has 2 boxes of 4.5 mg trulicity and that is all they can get. Asking Cecilia to send new Rx toña, so she can get these. Pended but unsure what ml's to order. Last ov: 02-12-24. [facility] History of Present illness Narrative* Urszula Hassan, RT(R) - 02/12/2024 9:00 AM EDT Radiology Service Progress Note PATIENT NAME: Chica Shah DATE OF SERVICE: February 12, 2024 TIME: 8:59 AM PATIENT IDENTITY VERIFICATION COMPLETED USING TWO (2) IDENTIFIERS: Name and Date of confirmedby patient verbally. FALL SCREENING: Has the patient had 2 falls in the last year or 1 fall with injury or currently using an Ambulatory Assistive Device (Walker, Cane, Wheelchair, Crutches, etc.)? No PATIENT GENDER DATA: Female. status: : No status: NO. PATIENT RELEVANT IMPLANT DATA REVIEWED: Yes PATIENT PRESENTS WITH AN IMPLANTABLE OR ATTACHED RADIOLOGY THERAPIST: No RADIOLOGY DEPARTMENT: General X-ray: Exam(s) Completed: Lower Extremity X- Ray(s): Toes, Right great PERIPHERAL IV DATA: Not applicable SIGNED BY: RT Antonia(R) February 12, 2024 8:59 AM documented in this encounterMet[facility]06-24-2024 History of Present illness Narrative* Cecilia Whitlock, MRI MANAGER.[facility] - 02/12/2024 8:18 AM EDT CC: Patient presents with: Follow Up HPI Chica Shah is a 58 year old female who presents today for above. Patient is requesting to increase doses of Gabapentin and Zanaflex which she takes for radicular neck pain and fibromyalgia. Neckpain is worsening along with numbness and tingling sensations in the left arm. She is scheduled forEMG this week. Denies any new symptoms. [place] right [place] Occurred during a syncopal episode so she is unclear on the mechanics of the injury. Reports swelling and pain of the entire toe down into the foot that is gradually improving. She is currently being worked up for syncopal episodes by cardiology. Review of Systems See HPI PAST MEDICAL HISTORY Diagnosis Date Ascending aorta dilation (HCC) 08/19/2023 COVID-19 virus infection 06/12/2020 Diabetes mellitus type 2 in obese 06/01/2011 Displaced fracture of base of fifth metacarpal bone of right hand with routine healing 02/11/2016 DJD (degenerative joint disease) left knee, hips Dysmetabolic syndrome X 03/14/2008 impaired fasting glucose Extensor intersection syndrome 12/30/2013 Fatty liver 07/20/2011 VIRGEN Fibromyalgia 06/03/2014 Gastric bypass status for obesity 07/2011 Hot flashes due to surgical menopause 11/17/2010 Hyperlipidemia 07/20/2011 Hypothyroidism Knee pain 12/06/2010 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 05/19/2015 Unspecified essential hypertension Urine, incontinence, stress female 12/02/2011 Vitamin D deficiency PAST SURGICAL HISTORY Procedure Laterality Date BUNIONECTOMY, LAPIDUS-TYPE Right 09/16/2022 Dr. Santizo DELIVERY ONLY 08/21/2000 , low transverse COLONOSCOPY - DIAGNOSTIC 10/29/2020 EGD 10/29/2020 GASTRIC BYPASS, SHASHA-EN-Y 08/16/2011 laparoscopic, [facility] HYSTERECTOMY HX 08/21/2007 Menorrhagia, Vaginal hysterectomy LAPAROSCOPIC CHOLECYSTECTOMY 12/02/2020 ROTATOR CUFF REPAIR 06/10/2014 Dr. Hansen, Right shoulder ROTATOR CUFF REPAIR 09/09/2014 Redo, right shoulder. SALPINGO-OOPHORECTOMY COMPL/PRTL UNI/BI SPX 08/21/2008 b/l due to pain TONSILLECTOMY HX 08/21/2005 ALLERGIES Celebrex [Celecoxib], Latex, and Nsaids (Non-Steroidal Anti- Inflammatory Drug) MEDICATIONS dupilumab 300 mg/2 mL subcutaneous syringe ([employer]) Inject subcutaneously. ZINC OXIDE TOPICAL Apply to affected area. dulaglutide (TRULICITY) 3 mg/0.5 mL pen injector Inject 3 mg subcutaneously one time a week. Take with Trulicity 1.5 mg to= 4.5 mg weekly dulaglutide (TRULICITY) 1.5 mg/0.5 mL pen injector Inject 1.5 mg subcutaneously one time a week. Take with Trulicity 3 mg to= 4.5 mg weekly meloxicam (MOBIC) 15 mg tablet Take 1 tablet by mouth once daily. amLODIPine (NORVASC) 5 mg tablet Take 1 tablet by mouth once daily. DULoxetine (CYMBALTA) 60 mg capsule Take 1 capsule by mouth once daily. levothyroxine (SYNTHROID) 88 mcg tablet Take 1 tablet by mouth daily before breakfast. atorvastatin (LIPITOR) 20 mg tablet Take 1 tablet by mouth three times a week. ergocalciferol 50,000 unit capsule (VITAMIN D2, DRISDOL) Take 1 capsule by mouth one time a week. cyanocobalamin 1,000 mcg/mL Inject once a week on Tuesdays for 3 weeks, then once a month Syringe with Needle, Disp, (SYRINGE 3CC/25GX1) 3 mL 25 gauge x 1 For B12 injections tiZANidine (ZANAFLEX) 4 mg tablet Take 1 tablet by mouth every 6 hours as needed (muscle spasms). Patient should start on December 06, 2023. gabapentin (NEURONTIN) 300 mg capsule Take 2 capsules by mouth two times a day for 180 days. omeprazole (PRILOSEC) 40 mg capsule Take 1 capsule by mouth once daily. triamcinolone acetonide (KENALOG) 0.1 % ointment Apply to affected area two times a day. miglitol (GLYSET) 25 mg tablet Take 1 tablet by mouth three times daily as needed (with meals as directed.). blood sugar diagnostic (BLOOD GLUCOSE TEST) test strip Test blood sugar(s) 2 times daily. Dx: Type 2 DM - Uncontrolled E11.65 Insulin: No Lancets lancets Test 3 times weekly, Insulin Dep? No E11.9 DM 2 nystatin-triamcinolone (MYCOLOG) ointment Apply sparingly to skin area with rash twice daily as needed. diclofenac sodium (VOLTAREN) 1 % topical gel Apply 2 g to affected area four times daily as needed (pain.). diphenhydramine HCl (BENADRYL ALLERGY ORAL) Take 2 capsules by mouth daily at bedtime. FAMILY HISTORY Adopted: Yes Problem Relation Age of Onset Diabetes Mother Cancer Mother Stroke Mother Diabetes Father at age 46 Diabetes Sister Diabetes Sister Hypertension Sister Hypertension Sister Social History Tobacco Use Smoking status: Never Passive exposure: Current Smokeless tobacco: Never Vaping Use Vaping Use: Never used Substance Use Topics Alcohol use: No Drug use: No BP 138/90 Pulse 98 Resp 14 Wt 68.9 kg (152 lb) LMP 11/21/2007 SpO2 100% BMI 27.80 kg/m Physical Exam Vitals reviewed. Constitutional: Appearance: Normal appearance. Cardiovascular: Rate and Rhythm: Normal rate and regular rhythm. Pulmonary: Effort: Pulmonary effort is normal. Breath sounds: Normal breath sounds. Musculoskeletal: Comments: Right great toe ecchymotic and swollen, tender with palpation. Skin: General: Skin is warm and dry. Neurological: Mental Status: She is alert. Psychiatric: Mood and Affect: Mood normal. ASSESSMENT/PLAN: 1. Cervicalgia - ICD9: 723.1, ICD10: M54.2 (primary diagnosis) Worsening symptoms, pain is not well controlled with current doses. Okay to increase Gabapentin to 900 mg BID and Tizanidine to 8 mg every hours as needed. Follow-up pending results of EMG - GABAPENTIN 300 MG CAPSULE - TIZANIDINE 4 MG TABLET 2. Injury of toe on right foot, initial encounter - ICD9: 959.7, ICD10: S99.921A Possible fracture - XR TOE AP/LAT/OBL RIGHT 3. Fibromyalgia - ICD9: 729.1, ICD10: M79.7 See #1 - GABAPENTIN 300 MG CAPSULE - TIZANIDINE 4 MG TABLET 4. Great toe pain, right - ICD9: 729.5, ICD10: M79.674 See #2 - XR TOE AP/LAT/OBL RIGHT Prescription instructions reviewed with patient as applicable. Potential red flag symptoms discussed with the patient. Reviewed appropriate action plan to take if red flag symptoms occur. Patient agreeable to treatment plan. Cecilia Whitlock APRN.BOBTAIL DRIVER documented in this encounterMet[facility]05-20-[facility]24 History of Present illness Narrative* Marimar Villar APRN.ELECTROLYSIS INVESTIGATOR - 01/08/2024 9:03 AM EDT SUBJECTIVE: DTaP,Tdap,Td Vaccine(1 - Tdap) due on 07/07/2009 Shingrix Vaccine(1 of 2) Never done Covid-19 Vaccine(4 - season) due on 04/21/2023 Dilated Retinal Exam due on 05/06/2023 Behavioral Health Screening Never done HPI Chica Shah is a 58 year old female. PMH significant for ACTIVE PROBLEM LIST Primary Hypertension Hypothyroidism Chronic Low Back Pain Vitamin D Deficiency Diabetes mellitus type 2 in obese (HCC) Hyperlipidemia Fatty Liver Gastric Bypass Status for Obesity Urine, Incontinence, Stress Female Hot Flashes Due to Surgical Menopause Fibromyalgia Cervicalgia Insomnia Due to Medical Condition Muscular Weakness Falls Frequently Obesity, Class I, Bmi 30-34.9 Intertrigo Syncope Elevated Blood Pressure Reading Tachycardia Ascending Aorta Dilation (Hcc) Presents today for recheck. HTN: Without report of headache, chest pain, palpitations, dyspnea, peripheral edema, orthopnea, fatigue, and PND.No AEs noted with amlodipine. Last 3 Encounter BP Readings: Date: BP: 01/08/2024 113/74 12/06/2023 132/90 11/06/2023 147/98[bp evie average[ She notes getting workup for syncopal episodes. She continues to note numbness in the left arm unchanged. Present for greater than 3 weeks. Seeing chiropractor for neck pain. Prior imaging and chiropractor without concerning findings. She notes seeing progressive care manager, being treated with Dupixent. She reports pharmacy will only fill prescription for dulaglutide if sent in monthly. Review of Systems Constitutional: Negative. Musculoskeletal: Positive for neck pain. Neurological: Positive for numbness (left arm). Objective BP 113/74 Pulse 79 Resp 16 Wt 69.9 kg (154 lb) LMP 11/21/2007 BMI 28.17 kg/m Physical Exam Vitals and nursing note reviewed. Constitutional: Appearance: Normal appearance. HENT: Head: Normocephalic and atraumatic. Eyes: Conjunctiva/sclera: Conjunctivae normal. Neck: Thyroid: No thyromegaly. Cardiovascular: Rate and Rhythm: Normal rate and regular rhythm. Heart sounds: Normal heart sounds. Pulmonary: Effort: Pulmonary effort is normal. Breath sounds: Normal breath sounds. Musculoskeletal: Cervical back: Tenderness present. Right lower leg: No edema. Left lower leg: No edema. Skin: General: Skin is warm and dry. Neurological: General: No focal deficit present. Mental Status: She is alert and oriented to person, place, and time. ALLERGIES Allergen Reactions Celebrex [Celecoxib] Rash Latex Intolerance burning feeling Nsaids (Non-Steroid* Other: See Comments Avoid due to Gastric Bypass Medications dupilumab 300 mg/2 mL subcutaneous syringe ([employer]) Inject subcutaneously. ZINC OXIDE TOPICAL Apply to affected area. meloxicam (MOBIC) 15 mg tablet Take 1 tablet by mouth once daily. amLODIPine (NORVASC) 5 mg tablet Take 1 tablet by mouth once daily. DULoxetine (CYMBALTA) 60 mg capsule Take 1 capsule by mouth once daily. levothyroxine (SYNTHROID) 88 mcg tablet Take 1 tablet by mouth daily before breakfast. atorvastatin (LIPITOR) 20 mg tablet Take 1 tablet by mouth three times a week. ergocalciferol 50,000 unit capsule (VITAMIN D2, DRISDOL) Take 1 capsule by mouth one time a week. cyanocobalamin 1,000 mcg/mL Inject once a week on Tuesdays for 3 weeks, then once a month Syringe with Needle, Disp, (SYRINGE 3CC/25GX1) 3 mL 25 gauge x 1 For B12 injections tiZANidine (ZANAFLEX) 4 mg tablet Take 1 tablet by mouth every 6 hours as needed (muscle spasms). Patient should start on December 06, 2023. gabapentin (NEURONTIN) 300 mg capsule Take 2 capsules by mouth two times a day for 180 days. omeprazole (PRILOSEC) 40 mg capsule Take 1 capsule by mouth once daily. triamcinolone acetonide (KENALOG) 0.1 % ointment Apply to affected area two times a day. miglitol (GLYSET) 25 mg tablet Take 1 tablet by mouth three times daily as needed (with meals as directed.). blood sugar diagnostic (BLOOD GLUCOSE TEST) test strip Test blood sugar(s) 2 times daily. Dx: Type 2 DM - Uncontrolled E11.65 Insulin: No Lancets lancets Test 3 times weekly, Insulin Dep? No E11.9 DM 2 nystatin-triamcinolone (MYCOLOG) ointment Apply sparingly to skin area with rash twice daily as needed. diclofenac sodium (VOLTAREN) 1 % topical gel Apply 2 g to affected area four times daily as needed (pain.). diphenhydramine HCl (BENADRYL ALLERGY ORAL) Take 2 capsules by mouth daily at bedtime. dulaglutide (TRULICITY) 3 mg/0.5 mL pen injector Inject 3 mg subcutaneously one time a week. Take with Trulicity 1.5 mg to= 4.5 mg weekly dulaglutide (TRULICITY) 1.5 mg/0.5 mL pen injector Inject 1.5 mg subcutaneously one time a week. Take with Trulicity 3 mg to= 4.5 mg weekly PAST MEDICAL HISTORY Diagnosis Date Ascending aorta dilation (HCC) 08/19/2023 COVID-19 virus infection 06/12/2020 Diabetes mellitus type 2 in obese 06/01/2011 Displaced fracture of base of fifth metacarpal bone of right hand with routine healing 02/11/2016 DJD (degenerative joint disease) left knee, hips Dysmetabolic syndrome X 03/14/2008 impaired fasting glucose Extensor intersection syndrome 12/30/2013 Fatty liver 07/20/2011 VIRGEN Fibromyalgia 06/03/2014 Gastric bypass status for obesity 07/2011 Hot flashes due to surgical menopause 11/17/2010 Hyperlipidemia 07/20/2011 Hypothyroidism Knee pain 12/06/2010 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 05/19/2015 Unspecified essential hypertension Urine, incontinence, stress female 12/02/2011 Vitamin D deficiency Social History Tobacco Use Smoking status: Never Passive exposure: Current Smokeless tobacco: Never Vaping Use Vaping Use: Never used Substance Use Topics Alcohol use: No Drug use: No Medical Decision Making: Problems: Moderate: 2+ stable chronic illnesses Data: Unique test(s) ordered: 1 Risk: Moderate: Drug management Medical Decision Making Level: 4 - Moderate documented in this encounterMet[facility] Telephone encounter Note * Telephone Encounter - Araceli Mendez - 01/01/2024 8:13 AM EDT Patient has been identified by name and date of : Yes, Provider Chidi Patient phones for refill(s): Requested Prescriptions Pending Prescriptions Disp Refills meloxicam (MOBIC) 15 mg tablet 30 tablet 1 Sig: Take 1 tablet by mouth once daily. Date of last office visit in primary care: 12/06/2023 Date of next office visit in primary care: 01/08/2024 Please advise. Thank you. Araceli Harris. [facility]05-13-2024 Miscellaneous Notes* Telephone Encounter - Araceli Mendez - 01/01/2024 8:13 AM EDT Patient has been identified by name and date of : Yes, Provider Chidi Patient phones for refill(s): Requested Prescriptions Pending Prescriptions Disp Refills meloxicam (MOBIC) 15 mg tablet 30 tablet 1 Sig: Take 1 tablet by mouth once daily. Date of last office visit in primary care: 12/06/2023 Date of next office visit in primary care: 01/08/2024 Please advise. Thank you. Araceli Harris. documented in this encounterMet[facility]04-30-2024 Telephone encounter Note * Telephone Encounter - Lauryn Alvarenga MA - 12/19/2023 4:33 PM EDT Spoke to Kraig at [facility] who advised medication not going through since insurance had 2 paid claims. Not sure how both trulicity 1.5 and 3 were covered since all past Pa for quantity over ride with medicaid are denied. Called [facility] and three way call [facility] an can be filled. Patient had 1.5 mg transferred to another pharmacy so in order to attemptto push that through would need to re-send rx. [facility] rep not sure if auth will go through since 3mg was accepted. Patient agreed to just do 3 mg till 4.5 is back in stock. Will call office if she changes her mind. Lauryn Alvarenga MA [facility]04-30-[facility]24 Miscellaneous Notes* Telephone Encounter - Lauryn Alvarenga MA - 12/19/2023 4:33 PM EDT Spoke to Kraig at [facility] who advised medication not going through since insurance had 2 paid claims. Not sure how both trulicity 1.5 and 3 were covered since all past [place] for quantity over ride with medicaid are denied. Called [facility] and three way call [facility] done with [facility] which 3 mg was [facility]through an can be filled. Patient had 1.5 mg transferred to another pharmacy so in order to attemptto push that through would need to re-send rx. [facility] kahn not sure if auth will go through since 3mg was accepted. Patient agreed to just do 3 mg till 4.5 is back in stock. Will call office if she changes her mind. Lauryn Alvarenga MA * Telephone Encounter - Dianne Grimaldo LPN - 12/19/2023 9:04 AM EDT Spoke with Kraig/Pharmacist at [facility] [facility]. Needing PA sent in due to Trulicity 4mg/0.5ml is on back order. [place] to have Trulicity 3.0mg and 1.5mg approved instead. Needing an EMERGENCY request due to pt leaving the country on 12/19. Request was faxed by Pharmacy on 12/17 per Ryan. Dianne Grimaldo LPN * Telephone Encounter - Baylee Hutchinson - 12/18/2023 5:02 PM EDT Chica is calling Jabari Murillo MD today to request the Nurse call Kraig at [facility] [place]. She stated there is problem with the Trulicity medication 1.5 mg and she needs this done by today or tomorrow. She is going out of town on Monday. Please call the Pharmacy as soon as possible. Please call the patient. Patient has been identified by name and birthdate. Duration of symptoms: N/A Person calling: self Call patient at: on cell [phone] (home) [phone] (cell) Was an appointment scheduled: No Closing statement: Results or non-symptom based questions: Thank you for calling [facility], your call will be returned within the next business day. Baylee Harris documented in this encounterMet[facility]04-30-2024 Telephone encounter Note * Telephone Encounter - Dianne Grimaldo LPN - 12/19/2023 9:04 AM EDT Spoke with Kraig/Pharmacist at [facility]. Needing PA sent in due to Trulicity 4mg/0.5ml is on back order. [place] to have Trulicity 3.0mg and 1.5mg approved instead. Needing an EMERGENCY request due to pt leaving the country on 12/19. Request was faxed by Pharmacy on 12/17 per Kraig. Dianne Grimaldo LPN [facility]04-29-2024 Telephone encounter Note* Telephone Encounter - Simms Baylee Harris - 12/18/2023 5:02 PM EDT Chica is calling Jabari Murillo MD today to request the Nurse call Kraig at [facility] [place]. She stated there is problem with the Trulicity medication 1.5 mg and she needs this done by today or tomorrow. She is going out of town on Monday. Please call the Pharmacy as soon as possible. Please call the patient. Patient has been identified by name and birthdate. Duration of symptoms: N/A Person calling: self Call patient at: on cell [phone] (home) [phone] (cell) Was an appointment scheduled: No Closing statement: Results or non-symptom based questions: Thank you for calling [facility], your call will be returned within the next business day. Baylee Farias Pss [facility]04-17-2024 Instructions* Patient Instructions* Cecilia Whitlock APRN.CNP - 12/06/2023 8:44 AM EDT Norvasc 5 mg daily documented in this encounterMetrohealth [facility]04-17-2024 History of Present illness Narrative* Cecilia Whitlock APRN.CNP - 12/06/2023 8:36 AM EDT CC Patient presents with: Follow Up: Blood pressure ; c/o left arm numbness and tingling couple weeks HPI Chica Shah is a 58 year old female who presents to the office for blood pressure. Her visit today is for follow-up. Patient was last seen for this approximately 1 month ago. Hypertension newly diagnosed and she was started on Norvasc 2.5 mg daily Taking all medications as prescribed: Yes Side effects: No Home BP's: No Denies: headache, chest pain, palpitations, dyspnea, and peripheral edema. Last 4 Encounter BP Readings: Date: BP: 12/06/2023 132/90 11/06/2023 147/98[bp evie average[ 08/03/2023 147/104[TruBP Average[ 06/20/2023 171/127[bp evie average[ Last 3 Encounter Wt Readings: Date: Wt: 12/06/2023 70.8 kg (156 lb) 11/06/2023 70.3 kg (155 lb) 08/03/2023 71.8 kg (158 lb 3.2 oz) Numbness/tingling entire left arm x 3 weeks. Painful, constant. Does not interfere with sleep or daily activities. 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 She has chronic neck pain, no worse than usual. Her chiropractor ordered an x-ray of her neck that did not reveal any acute findings. Review of Systems Constitutional: Negative for chills, diaphoresis, fatigue, fever and unexpected weight change. Respiratory: Negative for cough, shortness of breath and wheezing. Cardiovascular: Negative for chest pain, palpitations and leg swelling. Neurological: Negative for tremors. PAST MEDICAL HISTORY Diagnosis Date Ascending aorta dilation (HCC) 08/19/2023 COVID-19 virus infection 06/12/2020 Diabetes mellitus type 2 in obese 06/01/2011 Displaced fracture of base of fifth metacarpal bone of right hand with routine healing 02/11/2016 DJD (degenerative joint disease) left knee, hips Dysmetabolic syndrome X 03/14/2008 impaired fasting glucose Extensor intersection syndrome 12/30/2013 Fatty liver 07/20/2011 VIRGEN Fibromyalgia 06/03/2014 Gastric bypass status for obesity 07/2011 Hot flashes due to surgical menopause 11/17/2010 Hyperlipidemia 07/20/2011 Hypothyroidism Knee pain 12/06/2010 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 05/19/2015 Unspecified essential hypertension Urine, incontinence, stress female 12/02/2011 Vitamin D deficiency PAST SURGICAL HISTORY Procedure Laterality Date BUNIONECTOMY, LAPIDUS-TYPE Right 09/16/2022 Dr. Santizo DELIVERY ONLY 08/21/2000 , low transverse COLONOSCOPY - DIAGNOSTIC 10/29/2020 EGD 10/29/2020 GASTRIC BYPASS, SHASHA-EN-Y 08/16/2011 laparoscopic, [facility] HYSTERECTOMY HX 08/21/2007 Menorrhagia, Vaginal hysterectomy LAPAROSCOPIC CHOLECYSTECTOMY 12/02/2020 ROTATOR CUFF REPAIR 06/10/2014 Dr. Hansen, Right shoulder ROTATOR CUFF REPAIR 09/09/2014 Redo, right shoulder. SALPINGO-OOPHORECTOMY COMPL/PRTL UNI/BI SPX 08/21/2008 b/l due to pain TONSILLECTOMY HX 08/21/2005 ALLERGIES Celebrex [Celecoxib], Latex, and Nsaids (Non-Steroidal Anti- Inflammatory Drug) MEDICATIONS dulaglutide (TRULICITY) 1.5 mg/0.5 mL pen injector Inject 1.5 mg subcutaneously one time a week. Take with Trulicity 3 mg to= 4.5 mg weekly dulaglutide (TRULICITY) 3 mg/0.5 mL pen injector Inject 3 mg subcutaneously one time a week. Take with Trulicity 1.5 mg to= 4.5 mg weekly DULoxetine (CYMBALTA) 60 mg capsule Take 1 capsule by mouth once daily. levothyroxine (SYNTHROID) 88 mcg tablet Take 1 tablet by mouth daily before breakfast. atorvastatin (LIPITOR) 20 mg tablet Take 1 tablet by mouth three times a week. meloxicam (MOBIC) 15 mg tablet Take 1 tablet by mouth once daily. ergocalciferol 50,000 unit capsule (VITAMIN D2, DRISDOL) Take 1 capsule by mouth one time a week. cyanocobalamin 1,000 mcg/mL Inject once a week on Tuesdays for 3 weeks, then once a month Syringe with Needle, Disp, (SYRINGE 3CC/25GX1) 3 mL 25 gauge x 1 For B12 injections amLODIPine (NORVASC) 2.5 mg tablet Take 1 tablet by mouth once daily. tiZANidine (ZANAFLEX) 4 mg tablet Take 1 tablet by mouth every 6 hours as needed (muscle spasms). Patient should start on December 06, 2023. gabapentin (NEURONTIN) 300 mg capsule Take 2 capsules by mouth two times a day for 180 days. omeprazole (PRILOSEC) 40 mg capsule Take 1 capsule by mouth once daily. triamcinolone acetonide (KENALOG) 0.1 % ointment Apply to affected area two times a day. miglitol (GLYSET) 25 mg tablet Take 1 tablet by mouth three times daily as needed (with meals as directed.). blood sugar diagnostic (BLOOD GLUCOSE TEST) test strip Test blood sugar(s) 2 times daily. Dx: Type 2 DM - Uncontrolled E11.65 Insulin: No Lancets lancets Test 3 times weekly, Insulin Dep? No E11.9 DM 2 nystatin-triamcinolone (MYCOLOG) ointment Apply sparingly to skin area with rash twice daily as needed. diclofenac sodium (VOLTAREN) 1 % topical gel Apply 2 g to affected area four times daily as needed (pain.). diphenhydramine HCl (BENADRYL ALLERGY ORAL) Take 2 capsules by mouth daily at bedtime. FAMILY HISTORY Adopted: Yes Problem Relation Age of Onset Diabetes Mother Cancer Mother Stroke Mother Diabetes Father at age 46 Diabetes Sister Diabetes Sister Hypertension Sister Hypertension Sister Social History Tobacco Use Smoking status: Never Passive exposure: Current Smokeless tobacco: Never Vaping Use Vaping Use: Never used Substance Use Topics Alcohol use: No Drug use: No BP 132/90 Pulse 86 Resp 14 Wt 70.8 kg (156 lb) LMP 11/21/2007 SpO2 97% BMI 28.53 kg/m Physical Exam Vitals reviewed. Constitutional: Appearance: Normal appearance. Cardiovascular: Rate and Rhythm: Normal rate and regular rhythm. Pulses: Normal pulses. Heart sounds: Normal heart sounds. No murmur heard. Pulmonary: Effort: Pulmonary effort is normal. Breath sounds: Normal breath sounds. No wheezing, rhonchi or rales. Musculoskeletal: Cervical back: No edema, torticollis or crepitus. Pain with movement and muscular tenderness present. Normal range of motion. Comments: Upper extremities: normal ROM, no joint swelling or tenderness. Reflexes 2+ and symmetric. 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 No tremors. Pulses 2+. Cap refill < 2 seconds. Neurological: Mental Status: She is alert. DATA REVIEWED: Most recent labs ASSESSMENT/PLAN: 1. Primary hypertension - ICD9: 401.9, ICD10: I10 (primary diagnosis) - Improving control - Increase Norvasc to 5 mg daily - Recommend home blood pressure monitoring, to bring results to next visit - Encouraged sodium restriction, DASH or Mediterranean diet - Follow up in 4 weeks for hypertension visit 2. Numbness and tingling of left upper extremity - ICD9: 782.0, ICD10: R20.0, R20.2 No alarm symptoms or exam findings. Neurovascular exam normal. No symptoms concerning for cardiac cause. Suspect nerve impingement secondary to chronic neck issues. Follow-up if 4 weeks, if no improvement may need to consider EMG/NCT 3. Cervicalgia - ICD9: 723.1, ICD10: M54.2 Symptom management discussed. Follow-up as above Prescription instructions reviewed with patient as applicable. Potential red flag symptoms discussed with the patient. Reviewed appropriate action plan to take if red flag symptoms occur. Patient agreeable to treatment plan Cecilia Whitlock APRN.BOBTAIL DRIVER documented in this encounterMet[facility]04-16-2024 History of Present illness Narrative* Urszula Hassan RT(R) - 12/05/2023 11:40 AM EDT Radiology Service Progress Note PATIENT NAME: Chica Shah DATE OF SERVICE: December 05, 2023 TIME: 11:41 AM PATIENT IDENTITY VERIFICATION COMPLETED USING TWO (2) IDENTIFIERS: Name and Date of confirmedby patient verbally. FALL SCREENING: Has the patient had 2 falls in the last year or 1 fall with injury or currently using an Ambulatory Assistive Device (Walker, Cane, Wheelchair, Crutches, etc.)? No PATIENT GENDER DATA: Female. status: : No status: NO. PATIENT RELEVANT IMPLANT DATA REVIEWED: Yes PATIENT PRESENTS WITH AN IMPLANTABLE OR ATTACHED RADIOLOGY THERAPIST: No RADIOLOGY DEPARTMENT: General X-ray: Exam(s) Completed: Spine X-Ray(s): Cervical AP / LAT PERIPHERAL IV DATA: Not applicable SIGNED BY: RT Antonia(R) December 05, 2023 11:41 AM documented in this encounterMet[facility]04-03-2024 Miscellaneous Notes* Telephone Encounter - Azalia Haas LPN - 11/22/2023 1:54 PM EDT Patient notified RX sent to pharmacy. Azalia Haas LPN * Telephone Encounter - Sara Nath RN - 11/22/2023 12:31 PM EDT Patient calls to report she needs dose for tomorrow 11/23/2023. Sara Nath, RN * Telephone Encounter - Azalia Haas LPN - 11/22/2023 11:29 AM EDT [facility] has both Trulicity 3mg & 1.5mg. Azalia Haas LPN * Telephone Encounter - Jabari Murillo MD - 11/21/2023 5:08 PM EDT Please check with [facility] if Trulicity 3 mg pen and 1.5 mg pen are available to replace her 4.5 mg pen. * Telephone Encounter - Jaimie Shah LPN - 11/21/2023 10:55 AM EDT Pt calling to let you know she has checked all over and no one has Trulicity 4.5. Pt is asking if she could have a combination 3.0 and maybe 1.5, This medication is really working for her. Please advise pt. Jaimie Shah LPN documented in this encounterMet[facility]03-18-2024 History of Present illness Narrative* Cecilia Whitlock, MRI MANAGER.BOBTAIL DRIVER - 11/06/2023 9:31 AM EDT CC: Patient presents with: F/U 3 Month HPI Chica Shah is a 58 year old female who presents today for above. Patient has experienced multiple syncopal episodes over the past few months. She is currently under evaluation for this by neurology, needs to schedule Tilt Table testing. During her most recent syncopal episode last month she fell in her garden and a rock went up the right side of my nose. She now has a hole there that I can almost put my finger through. Area is very painful and tender. Denies swelling, redness, bleedingor purulent drainage. BP has been elevated at her last few office visits. She has a history of hypertension but treatmentwas stopped once she lost weight through gastric bypass. She is unable to check her BP at home. Shereports headaches and occasional palpitations. Denies chest pain, SOB, edema, malaise. She is requesting refill of Zanaflex for chronic neck and low back pain along with fibromyalgia. Takes Zanaflex up to four times a day, sometimes less on days that her pain is not as bad. She is on Cymbalta for chronic pain as well. Review of Systems See HPI PAST MEDICAL HISTORY Diagnosis Date Ascending aorta dilation (HCC) 08/19/2023 COVID-19 virus infection 06/12/2020 Diabetes mellitus type 2 in obese 06/01/2011 Displaced fracture of base of fifth metacarpal bone of right hand with routine healing 02/11/2016 DJD (degenerative joint disease) left knee, hips Dysmetabolic syndrome X 03/14/2008 impaired fasting glucose Extensor intersection syndrome 12/30/2013 Fatty liver 07/20/2011 VIRGEN Fibromyalgia 06/03/2014 Gastric bypass status for obesity 07/2011 Hot flashes due to surgical menopause 11/17/2010 Hyperlipidemia 07/20/2011 Hypothyroidism Knee pain 12/06/2010 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 05/19/2015 Unspecified essential hypertension Urine, incontinence, stress female 12/02/2011 Vitamin D deficiency PAST SURGICAL HISTORY Procedure Laterality Date BUNIONECTOMY, LAPIDUS-TYPE Right 09/16/2022 Dr. Santizo DELIVERY ONLY 08/21/2000 , low transverse COLONOSCOPY - DIAGNOSTIC 10/29/2020 EGD 10/29/2020 GASTRIC BYPASS, SHASHA-EN-Y 08/16/2011 laparoscopic, [facility] HYSTERECTOMY HX 08/21/2007 Menorrhagia, Vaginal hysterectomy LAPAROSCOPIC CHOLECYSTECTOMY 12/02/2020 ROTATOR CUFF REPAIR 06/10/2014 Dr. Hansen, Right shoulder ROTATOR CUFF REPAIR 09/09/2014 Redo, right shoulder. SALPINGO-OOPHORECTOMY COMPL/PRTL UNI/BI SPX 08/21/2008 b/l due to pain TONSILLECTOMY HX 08/21/2005 ALLERGIES Celebrex [Celecoxib], Latex, and Nsaids (Non-Steroidal Anti- Inflammatory Drug) MEDICATIONS tiZANidine (ZANAFLEX) 4 mg tablet Take 1 tablet by mouth every 6 hours as needed (muscle spasms). Patient should start on November 05, 2023. gabapentin (NEURONTIN) 300 mg capsule Take 2 capsules by mouth two times a day for 180 days. dulaglutide (TRULICITY) 4.5 mg/0.5 mL pen injector Inject 4.5 mg subcutaneously one time a week. omeprazole (PRILOSEC) 40 mg capsule Take 1 capsule by mouth once daily. triamcinolone acetonide (KENALOG) 0.1 % ointment Apply to affected area two times a day. miglitol (GLYSET) 25 mg tablet Take 1 tablet by mouth three times daily as needed (with meals as directed.). DULoxetine (CYMBALTA) 60 mg capsule Take 1 capsule by mouth once daily. levothyroxine (SYNTHROID) 88 mcg tablet Take 1 tablet by mouth daily before breakfast. atorvastatin (LIPITOR) 20 mg tablet Take 1 tablet by mouth three times a week. meloxicam (MOBIC) 15 mg tablet Take 1 tablet by mouth once daily. ergocalciferol 50,000 unit capsule (VITAMIN D2, DRISDOL) Take 1 capsule by mouth one time a week. cyanocobalamin 1,000 mcg/mL Inject once a week on Tuesdays for 3 weeks, then once a month Syringe with Needle, Disp, (SYRINGE 3CC/25GX1) 3 mL 25 gauge x 1 For B12 injections blood sugar diagnostic (BLOOD GLUCOSE TEST) test strip Test blood sugar(s) 2 times daily. Dx: Type 2 DM - Uncontrolled E11.65 Insulin: No Lancets lancets Test 3 times weekly, Insulin Dep? No E11.9 DM 2 nystatin-triamcinolone (MYCOLOG) ointment Apply sparingly to skin area with rash twice daily as needed. diclofenac sodium (VOLTAREN) 1 % topical gel Apply 2 g to affected area four times daily as needed (pain.). diphenhydramine HCl (BENADRYL ALLERGY ORAL) Take 2 capsules by mouth daily at bedtime. FAMILY HISTORY Adopted: Yes Problem Relation Age of Onset Diabetes Mother Cancer Mother Stroke Mother Diabetes Father at age 46 Diabetes Sister Diabetes Sister Hypertension Sister Hypertension Sister Social History Tobacco Use Smoking status: Never Passive exposure: Current Smokeless tobacco: Never Vaping Use Vaping Use: Never used Substance Use Topics Alcohol use: No Drug use: No BP 158/102 Pulse 96 Resp 14 Wt 70.3 kg (155 lb) LMP 11/21/2007 BMI 28.35 kg/m Physical Exam Vitals reviewed. Constitutional: Appearance: Normal appearance. HENT: Nose: Nasal tenderness (right nares) present. No nasal deformity. Right Nostril: No septal hematoma or occlusion. Left Nostril: No septal hematoma or occlusion. Right Turbinates: Not enlarged or swollen. Left Turbinates: Not enlarged or swollen. Comments: No obvious holes seen on exam of the right nares Cardiovascular: Rate and Rhythm: Normal rate and regular rhythm. Pulses: Dorsalis pedis pulses are 2+ on the right side and 2+ on the left side. Posterior tibial pulses are 2+ on the right side and 2+ on the left side. Heart sounds: Normal heart sounds. No murmur heard. Pulmonary: Effort: Pulmonary effort is normal. Breath sounds: Normal breath sounds. No wheezing, rhonchi or rales. Musculoskeletal: Right foot: No deformity. Left foot: No deformity. Feet: Right foot: Skin integrity: Skin integrity normal. Toenail Condition: Right toenails are normal. Left foot: Skin integrity: Skin integrity normal. Toenail Condition: Left toenails are normal. Comments: sensitive to 10 gm monofilament, vibratory perception normal, and no edema Skin: General: Skin is warm and dry. Neurological: Mental Status: She is alert. Psychiatric: Mood and Affect: Mood normal. Health maintenance reviewed with patient: DTaP,Tdap,Td Vaccine(1 - Tdap) due on 07/07/2009 Shingrix Vaccine(1 of 2) Never done Covid-19 Vaccine(4 - ) due on 04/21/2023 Dilated Retinal Exam due on 05/06/2023 Depression Assessment due on 08/21/2023 Diabetic Foot Exam due on 10/25/2023 HbA1C due on 04/05/2024 Mammogram Screening due on 08/03/2024 Annual PCP Team Chronic Disease Visit due on 08/03/2024 Urine Albumin:Creatinine Ratio due on 10/06/2024 LDL Cholesterol due on 10/06/2024 Colorectal Cancer Screening due on 10/29/2030 Hepatitis C Screening Completed HIV Screening Completed Pap Testing Discontinued HPV Testing Discontinued Influenza Vaccine Discontinued Pneumococcal Vaccine Discontinued DATA REVIEWED: Most recent labs Latest Ref Rng 10/06/2023 Protein, Total 6.3 - 8.0 g/dL 6.9 Albumin 3.9 - 4.9 g/dL 4.2 Calcium 8.5 - 10.2 mg/dL 10.3 (H) Bilirubin, Total 0.2 - 1.3 mg/dL 0.4 Alkaline Phosphatase 34 - 123 U/L 184 (H) AST 13 - 35 U/L 31 ALT 7 - 38 U/L 30 Glucose 74 - 99 mg/dL 93 BUN 7 - 21 mg/dL 10 Creatinine 0.58 - 0.96 mg/dL 0.79 Sodium 136 - 144 mmol/L 140 Potassium 3.7 - 5.1 mmol/L 4.9 Chloride 97 - 105 mmol/L 101 CO2 22 - 30 mmol/L 27 Anion Gap 9 - 18 mmol/L 12 eGFR >=60 mL/min/1.73m 86 WBC 3.70 - 11.00 k/uL 9.08 RBC 3.90 - 5.20 m/uL 4.58 Hemoglobin 11.5 - 15.5 g/dL 12.4 Hematocrit 36.0 - 46.0 % 40.0 MCV 80.0 - 100.0 fL 87.3 MCH 26.0 - 34.0 pg 27.1 MCHC 30.5 - 36.0 g/dL 31.0 RDW-CV 11.5 - 15.0 % 14.1 Platelet Count 150 - 400 k/uL 292 MPV 9.0 - 12.7 fL 10.1 Absolute nRBC <0.01 k/uL <0.01 Cholesterol, Total <200 mg/dL 154 Triglyceride <150 mg/dL 137 HDL Cholesterol >39 mg/dL 50 Non HDL Cholesterol <130 mg/dL 104 Fasting Time hrs 10 VLDL Cholesterol <30 mg/dL 27 TC:HDL Ratio <5.10 3.08 LDL Cholesterol <100 mg/dL 77 LDL:HDL Ratio <2.54 1.54 Creatinine, Ur Random (UCRR) 20.0 - 300.0 mg/dL 288.0 Albumin, Urine Random mg/L 34.0 Albumin/Creat Ratio <30 mg/g 12 Hemoglobin A1C 4.3 - 5.6 % 6.3 (H) Estimated Average Glucose mg/dL 134 TSH 0.270 - 4.200 mIU/L 1.990 Depression Screening PHQ-2 Score 11/06/2023 0 Depression screening tool completed and reviewed. Based on score and interview, patient is not at risk for depression. Screening tool discussed with patient, and I recommended no further interventionat this time. ASSESSMENT/PLAN: 1. Primary hypertension - ICD9: 401.9, ICD10: I10 (primary diagnosis) - New diagnosis - Start Norvasc 2.5 mg daily - Recommend home blood pressure monitoring, to bring results to next visit - Encouraged sodium restriction, DASH or Mediterranean diet - Follow up in 4 weeks for hypertension visit 2. Nasal pain - ICD9: 478.19, ICD10: J34.89 Unable to evaluate thoroughly due to equipment limitations. No obvious holes - CONSULT TO ENT 3. Fibromyalgia - ICD9: 729.1, ICD10: M79.7 stable - DULOXETINE 60 MG CAPSULE,DELAYED RELEASE - TIZANIDINE 4 MG TABLET 4. Cervicalgia - ICD9: 723.1, ICD10: M54.2 stable - TIZANIDINE 4 MG TABLET 5. Chronic low back pain, unspecified back pain laterality, unspecified whether sciatica present - ICD9: 724.2, 338.29, ICD10: M54.50, G89.29 stable - TIZANIDINE 4 MG TABLET 6. Syncope, unspecified syncope type - ICD9: 780.2, ICD10: R55 Under evaluation by neurology 7. Hypothyroidism, unspecified type - ICD9: 244.9, ICD10: E03.9 Patient taking levothyroxine as instructed. TSH indicating dosage of levothyroxine is therapeutic ,continue dose of levothyroxine. 8. Elevated alkaline phosphatase level - ICD9: 790.5, ICD10: R74.8 Chronic elevation, stable 9. Hyperlipidemia, unspecified hyperlipidemia type - ICD9: 272.4, ICD10: E78.5 - Controlled - Continue current medications Prescription instructions reviewed with patient as applicable. Potential red flag symptoms discussed with the patient. Reviewed appropriate action plan to take if red flag symptoms occur. Patient agreeable to treatment plan. Cecilia Whitlock APRN.JASPREET documented in this encounterMet[facility]03-15-2024 Miscellaneous Notes* Telephone Encounter - Lara Rosales APRN.CNP - 11/03/2023 3:01 PM EDT reorderd documented in this encounterMetro[facility]03-11-2024 Miscellaneous Notes* Telephone Encounter - Viviana King - 10/30/2023 1:31 PM EDT Understands this is not due until Monday. Patient has been identified by name and date of : Yes, Provider Jabari June MD Date 10/30/23 Time 1:32 on Patient phones for refill(s): Requested Prescriptions Pending Prescriptions Disp Refills tiZANidine (ZANAFLEX) 4 mg tablet 120 tablet 0 Sig: Take 1 tablet by mouth every 6 hours as needed (muscle spasms). Date of last office visit in primary care: 08/03/2023 Date of next office visit in primary care: 11/06/2023 Please advise. Thank you. Viviana King. documented in this encounterMet[facility]02-27-2024 Miscellaneous Notes* Telephone Encounter - Winifred Gallego - 10/17/2023 12:26 PM EST Patient has been identified by name and date of : Yes, Provider Jabari Ascencio MD Date 10/17/2023 Time 12:27 pm Patient phones for refill(s): Requested Prescriptions Pending Prescriptions Disp Refills gabapentin (NEURONTIN) 300 mg capsule 360 capsule 1 Sig: Take 2 capsules by mouth two times a day for 180 days. Date of last office visit in primary care: 08/03/2023 Date of next office visit in primary care: 11/03/2023 Please advise. Thank you. Winifred Doyle. documented in this encounterMetro[facility]02-16-2024 Miscellaneous Notes* Telephone Encounter - Jabari Murillo MD - 10/06/2023 9:12 AM EST Patient came with spouse's appointment. I cautioned her I will not continue to refill this early. Refill sent. * Telephone Encounter - Jabari Murillo MD - 10/04/2023 10:17 PM EST Requested Prescriptions Refused Prescriptions Disp Refills tiZANidine (ZANAFLEX) 4 mg tablet 120 tablet 0 Sig: Take 1 tablet by mouth every 6 hours as needed (muscle spasms). Refused By: JABARI MURILLO Reason for Refusal: Patient has requested refill too soon Refill next week. Jabari Murillo MD * Telephone Encounter - Ole Michel Ma - 10/04/2023 10:20 AM EST NOV: 11/03/2023 * Telephone Encounter - Alexia Leigh - 10/04/2023 10:04 AM EST Patient has been identified by name and date of : Yes, Provider Chidi Date 10/04/2023 Time 10/04/2023 Patient phones for refill(s): Requested Prescriptions Pending Prescriptions Disp Refills tiZANidine (ZANAFLEX) 4 mg tablet 120 tablet 0 Sig: Take 1 tablet by mouth every 6 hours as needed (muscle spasms). Date of last office visit in primary care: 08/03/2023 Date of next office visit in primary care: Visit date not found Please advise. Thank you. Alexia Leigh. documented [facility] this [facility] Miscellaneous Notes* Telephone Encounter - Ole Michel Ma - 09/22/2023 2:41 PM EST See phone note 09/20. * Telephone Encounter - Caridad Palacios - 09/20/2023 1:14 PM EST Chica is calling Jabari Murillo MD today requesting a refill on inhaler not listed under current medication list Albuterol Inhaler Patient has chest cold - caller was transferred to [facility] to discuss symptoms Drug Tyler Perdomo documented in this encounterMet[facility]12-14-[facility]23 History of Present illness Narrative* Jabari Murillo MD - 08/03/2023 10:31 AM EST This note was created using [employer]. Subjective Chica Shah is a 58 year old female. She had another syncopal attack more than 2 weeks ago. Shefell forward and bruised her nose, broke her glasses. She declined to be brought to the ER. She wasseen by neurology and scheduled for tilt table testing and video EEG in September. Her blood pressure had also been elevating, possibly from some coffee today. Diabetes was controlled. Weight was coming down on Trulicity. She picked on skin lesions on her upper back and these have inflamed. Review of Systems Constitutional: Negative for fever. Respiratory: Negative for cough and shortness of breath. Cardiovascular: Negative for chest pain, palpitations and leg swelling. Gastrointestinal: Negative for diarrhea, nausea and vomiting. Neurological: Positive for headaches. Negative for dizziness, facial asymmetry and weakness. ACTIVE PROBLEM LIST Hypothyroidism Chronic Low Back Pain Vitamin D Deficiency Diabetes mellitus type 2 in obese (HCC) Hyperlipidemia Fatty Liver Gastric Bypass Status for Obesity Urine, Incontinence, Stress Female Hot Flashes Due to Surgical Menopause Fibromyalgia Cervicalgia Insomnia Due to Medical Condition Muscular Weakness Falls Frequently Obesity, Class I, Bmi 30-34.9 Intertrigo Current Outpatient Medications Medication Sig dulaglutide (TRULICITY) 4.5 mg/0.5 mL pen injector Inject 4.5 mg subcutaneously one time a week. triamcinolone acetonide (KENALOG) 0.1 % ointment Apply to affected area two times a day. tiZANidine (ZANAFLEX) 4 mg tablet Take 1 tablet by mouth every 6 hours as needed (muscle spasms). miglitol (GLYSET) 25 mg tablet Take 1 tablet by mouth three times daily as needed (with meals as directed.). DULoxetine (CYMBALTA) 60 mg capsule Take 1 capsule by mouth once daily. levothyroxine (SYNTHROID) 88 mcg tablet Take 1 tablet by mouth daily before breakfast. atorvastatin (LIPITOR) 20 mg tablet Take 1 tablet by mouth three times a week. gabapentin (NEURONTIN) 300 mg capsule Take 2 capsules by mouth twice daily for 180 days. meloxicam (MOBIC) 15 mg tablet Take 1 tablet by mouth once daily. ergocalciferol 50,000 unit capsule (VITAMIN D2, DRISDOL) Take 1 capsule by mouth one time a week. cyanocobalamin 1,000 mcg/mL Inject once a week on Tuesdays for 3 weeks, then once a month Syringe with Needle, Disp, (SYRINGE 3CC/25GX1) 3 mL 25 gauge x 1 For B12 injections blood sugar diagnostic (BLOOD GLUCOSE TEST) test strip Test blood sugar(s) 2 times daily. Dx: Type 2 DM - Uncontrolled E11.65 Insulin: No Lancets lancets Test 3 times weekly, Insulin Dep? No E11.9 DM 2 nystatin-triamcinolone (MYCOLOG) ointment Apply sparingly to skin area with rash twice daily as needed. omeprazole (PRILOSEC) 40 mg capsule Take 1 capsule by mouth once daily. diclofenac sodium (VOLTAREN) 1 % topical gel Apply 2 g to affected area four times daily as needed (pain.). diphenhydramine HCl (BENADRYL ALLERGY ORAL) Take 2 capsules by mouth daily at bedtime. doxycycline (VIBRA-TABS) 100 mg tablet Take 1 tablet by mouth two times a day for 7 days. No current facility-administered medications for this visit. Objective BP 147/104 Pulse 113 Temp 36.7 C (98.1 F) Resp 18 Wt 71.8 kg (158 lb 3.2 oz) LMP 11/21/2007 SpO2 98% BMI 28.94 kg/m Physical Exam Constitutional: General: She is not in acute distress. Appearance: She is not ill-appearing. HENT: Head: Comments: Resolving ecchymosis of mid forehead. Nose: No nasal deformity. Comments: Few dried abrasions nasal bridge. Cardiovascular: Rate and Rhythm: Tachycardia present. Heart sounds: No murmur heard. No gallop. Pulmonary: Effort: No respiratory distress. Breath sounds: No wheezing or rales. Musculoskeletal: Right lower leg: No edema. Left lower leg: No edema. Skin: Comments: 3 ulcerated nodules of left posterior shoulder with surrounding skin erythematous, raised, warm. No drainage but ulcers moist. Neurological: General: No focal deficit present. Mental Status: She is alert and oriented to person, place, and time. Component Latest Ref Rng & Units 06/28/2023 Glucose 74 - 99 mg/dL 103 (H) BUN 7 - 21 mg/dL 15 Creatinine 0.58 - 0.96 mg/dL 0.81 Sodium 136 - 144 mmol/L 139 Potassium 3.7 - 5.1 mmol/L 4.3 Chloride 97 - 105 mmol/L 103 CO2 22 - 30 mmol/L 28 Anion Gap 9 - 18 mmol/L 8 (L) Calcium 8.5 - 10.2 mg/dL 9.1 eGFR >=60 mL/min/1.73m 84 Hemoglobin A1C 4.3 - 5.6 % 6.4 (H) Estimated Average Glucose mg/dL 137 EKG RESULTS: normal EKG, normal sinus rhythm Assessment and Plan 1. Syncope, unspecified syncope type - ICD9: 780.2, ICD10: R55 (primary diagnosis) Paroxysmal. - ECG COMPLETE - ECHO - PERFLUTREN LIPID MICROSPHERES 1.1 MG/ML INJECTION IN NS 10 ML - SODIUM CHLORIDE 0.9 % (FLUSH) INJECTION SYRINGE - EEG and tilt table test as scheduled in Sep. 2. Tachycardia - ICD9: 785.0, ICD10: R00.0 Resolving. - ECG COMPLETE - CBC 3. Elevated blood pressure reading - ICD9: 796.2, ICD10: R03.0 - Encouraged dietary sodium restriction/DASH diet - Reviewed risks of HTN and principles of treatment - Goal of BP <130/80 4. Cellulitis of back except buttock - ICD9: 682.2, ICD10: L03.312 - Avoid scratching. - DOXYCYCLINE HYCLATE 100 MG TABLET Discussed medication dosage, usage, goals of therapy, and side effects. 5. Need for COVID-19 vaccine - ICD9: V04.89, ICD10: Z23 - [employer] COVID-19 VACCINE (2022- SEASON) AGE 12+ YR (Not given- deferred to next follow up). 6. Hypothyroidism, unspecified type - ICD9: 244.9, ICD10: E03.9 - continue current dose of Synthroid - TSH BLD 7. Diabetes mellitus type 2 in obese (HCC) - ICD9: 250.00, 278.00, ICD10: E11.69, E66.9 - Controlled - Continue current medications - COMP METABOLIC PANEL - LIPID PANEL BASIC - HGB A1C - ALBUMIN/CREAT RATIO RND UR Jabari Murillo MD * Daphnie Orozco - 08/03/2023 10:22 AM EST Evie BP 139/90 143/104 146/97 158/134 Average 147/104 Pulse 108 documented in this encounterMet[facility]11-08-[facility]23 History of Present illness Narrative* Raisa Mcrae RDMS - 06/28/2023 8:30 AM EST Radiology Service Progress Note PATIENT NAME: Chica Shah DATE OF SERVICE: June 28, 2023 TIME: 11:11 AM PATIENT IDENTITY VERIFICATION COMPLETED USING TWO (2) IDENTIFIERS: Name and Date of confirmedby patient verbally. FALL SCREENING: Has the patient had 2 falls in the last year or 1 fall with injury or currently using an Ambulatory Assistive Device (Walker, Cane, Wheelchair, Crutches, etc.)? No PATIENT GENDER DATA: Female. status: : No status: NO. PATIENT RELEVANT IMPLANT DATA REVIEWED: Not Applicable RADIOLOGY DEPARTMENT: Ultrasound PERIPHERAL IV DATA: Not applicable SIGNED BY: Raisa Mcrae RDMS RVT June 28, 2023 11:11 AM documented in this encounterMet[facility]10-31-2023 History of Present illness Narrative* Cecilia Barry APRN.BOBTAIL DRIVER - 06/20/2023 10:53 AM EDT Images from the original note were not included. CC: Patient presents with: Rash: Back and neck HPI Chica Shah is a 58 year old female who presents today for rash. Patient reports rash to posterior neck and upper back has been present x 2 months. Has become much worse over the past two weeks. Itching or Pain: rash is very itchy and uncomfortable. Ever had a rash like this before: YES. History of skin problems: similar rash to both arms intermittently for years, flares up in the Spring when she works in the garden. Changes in soaps or detergents: No. New medications or foods: No. Exposure to others with rash: No. Environmental exposures: No Environmental/seasonal allergies: No Fever, chills, fatigue, joint pain/swelling: No. Treatments: benadryl cream without any relief PMH: type 2 diabetes well controlled, obesity, fibromyalgia BP is high today. She does not have a history of hypertension. She is very stressed and anxious about the rash, not getting much sleep. Denies headache, chest pain, blurred vision, flushing, dizziness, palpitations, SOB, edema, malaise. Review of Systems Gastrointestinal: Negative for abdominal pain and vomiting. Musculoskeletal: Negative for arthralgias. Skin: Negative for color change. Hematological: Negative for adenopathy. Does not bruise/bleed easily. PAST MEDICAL HISTORY Diagnosis Date COVID-19 virus infection 06/12/2020 Diabetes mellitus type 2 in obese (HCC) 06/01/2011 Displaced fracture of base of fifth metacarpal bone of right hand with routine healing 02/11/2016 DJD (degenerative joint disease) left knee, hips Dysmetabolic syndrome X 03/14/2008 impaired fasting glucose Extensor intersection syndrome 12/30/2013 Fatty liver 07/20/2011 VIRGEN Fibromyalgia 06/03/2014 Gastric bypass status for obesity 07/2011 Hot flashes due to surgical menopause 11/17/2010 Hyperlipidemia 07/20/2011 Hypothyroidism Knee pain 12/06/2010 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 05/19/2015 Unspecified essential hypertension Urine, incontinence, stress female 12/02/2011 Vitamin D deficiency PAST SURGICAL HISTORY Procedure Laterality Date BUNIONECTOMY, LAPIDUS-TYPE Right 09/16/2022 Dr. Santizo DELIVERY ONLY 08/21/2000 , low transverse COLONOSCOPY - DIAGNOSTIC 10/29/2020 EGD 10/29/2020 GASTRIC BYPASS, SHASHA-EN-Y 08/16/2011 laparoscopic, [facility] HYSTERECTOMY HX 08/21/2007 Menorrhagia, Vaginal hysterectomy LAPAROSCOPIC CHOLECYSTECTOMY 12/02/2020 ROTATOR CUFF REPAIR 06/10/2014 Dr. Hansen, Right shoulder ROTATOR CUFF REPAIR 09/09/2014 Redo, right shoulder. SALPINGO-OOPHORECTOMY COMPL/PRTL UNI/BI SPX 08/21/2008 b/l due to pain TONSILLECTOMY HX 08/21/2005 ALLERGIES Celebrex [Celecoxib], Latex, and Nsaids (Non-Steroidal Anti- Inflammatory Drug) MEDICATIONS naproxen (NAPROSYN) 500 mg tablet Take 1 tablet by mouth twice daily as needed (for pain/inflammation). Take with food. tiZANidine (ZANAFLEX) 4 mg tablet Take 1 tablet by mouth every 6 hours as needed (muscle spasms). miglitol (GLYSET) 25 mg tablet Take 1 tablet by mouth three times daily as needed (with meals as directed.). DULoxetine (CYMBALTA) 60 mg capsule Take 1 capsule by mouth once daily. levothyroxine (SYNTHROID) 88 mcg tablet Take 1 tablet by mouth daily before breakfast. atorvastatin (LIPITOR) 20 mg tablet Take 1 tablet by mouth three times a week. gabapentin (NEURONTIN) 300 mg capsule Take 2 capsules by mouth twice daily for 180 days. meloxicam (MOBIC) 15 mg tablet Take 1 tablet by mouth once daily. ergocalciferol 50,000 unit capsule (VITAMIN D2, DRISDOL) Take 1 capsule by mouth one time a week. dulaglutide (TRULICITY) 4.5 mg/0.5 mL pen injector Inject 4.5 mg subcutaneously one time a week. cyanocobalamin 1,000 mcg/mL Inject once a week on Tuesdays for 3 weeks, then once a month Syringe with Needle, Disp, (SYRINGE 3CC/25GX1) 3 mL 25 gauge x 1 For B12 injections blood sugar diagnostic (BLOOD GLUCOSE TEST) test strip Test blood sugar(s) 2 times daily. Dx: Type 2 DM - Uncontrolled E11.65 Insulin: No Lancets lancets Test 3 times weekly, Insulin Dep? No E11.9 DM 2 nystatin-triamcinolone (MYCOLOG) ointment Apply sparingly to skin area with rash twice daily as needed. omeprazole (PRILOSEC) 40 mg capsule Take 1 capsule by mouth once daily. diclofenac sodium (VOLTAREN) 1 % topical gel Apply 2 g to affected area four times daily as needed (pain.). diphenhydramine HCl (BENADRYL ALLERGY ORAL) Take 2 capsules by mouth daily at bedtime. FAMILY HISTORY Adopted: Yes Problem Relation Age of Onset Diabetes Mother Cancer Mother Stroke Mother Diabetes Father at age 46 Diabetes Sister Diabetes Sister Hypertension Sister Hypertension Sister Social History Tobacco Use Smoking status: Never Passive exposure: Current Smokeless tobacco: Never Vaping Use Vaping Use: Never used Substance Use Topics Alcohol use: No Drug use: No BP (!) 171/127 Pulse 95 Temp 36.9 C (98.4 F) (Temporal) Resp 14 Wt 71.2 kg (157 lb) LMP 11/21/2007 BMI 28.72 kg/m Physical Exam Vitals reviewed. Constitutional: General: She is not in acute distress. Appearance: She is not ill-appearing. Cardiovascular: Rate and Rhythm: Normal rate and regular rhythm. Pulses: Normal pulses. Heart sounds: No murmur heard. Pulmonary: Effort: Pulmonary effort is normal. Breath sounds: Normal breath sounds. No wheezing, rhonchi or rales. Lymphadenopathy: Cervical: No cervical adenopathy. Upper Body: Right upper body: No supraclavicular adenopathy. Left upper body: No supraclavicular adenopathy. Skin: General: Skin is warm and dry. Neurological: Mental Status: She is alert. Psychiatric: Mood and Affect: Mood is anxious. DATA REVIEWED: Most recent labs ASSESSMENT/PLAN: 1. Rash and nonspecific skin eruption - ICD9: 782.1, ICD10: R21 (primary diagnosis) Etiology unclear. Patient reports rash is new since April however she has similar lesions on her arms and scars from previous lesions. - CONSULT TO DERMATOLOGY for further evaluation and recommendations 2. Cellulitis, unspecified cellulitis site - ICD9: 682.9, ICD10: L03.90 A few lesions on upper back with possible secondary bacterial infection - Begin treatment with Doxycycline, see orders - No lymphangetic streaking, this was defined for patient to watch for and to seek medical care immediately if appears 3. Elevated blood pressure reading - ICD9: 796.2, ICD10: R03.0 No history of hypertension. Suspect due to anxiety, stress and pain from rash. No alarm symptoms orexam findings. - Recheck in 2 weeks, sooner if needed. 4. Fatty liver - ICD9: 571.8, ICD10: K76.0 Needs rechecked - COMP METABOLIC PANEL - GGT BLD Prescription instructions reviewed with patient as applicable. Potential red flag symptoms discussed with the patient. Reviewed appropriate action plan to take if red flag symptoms occur. Patient agreeable to treatment plan. Cecilia Barry APRN.CNP documented in this encounterMet[facility]10-18-2023 Instructions* Patient Instructions* Yrn Soni MD - 06/07/2023 8:47 AM EDT Thank you for taking the time to come and see me today! Please schedule an appointment for: [facility] Please follow up in about 3 months. documented in this encounterMet[facility]10-18-2023 History of Present illness Narrative* Yrn Soni MD - 06/07/2023 8:00 AM EDT [facility] Consultation Date: June 07, 2023 - 8:08 AM Referring physician: Dr.Victor Roberta Murillo, PCP [id number] [facility] [id number] Chica Shah is seen in consultation requested by Dr. Jabari Murillo, PCP for an opinion regarding Cervicalgia and Chronic low back pain, unspecified back pain laterality, unspecified whether sciatica present. My final recommendations will be communicated back to the requesting physician by way of shared medical record or via US mail. Chief Complaint: Patient presents with: Back Pain: Neck, and bilateral shoulders. SUBJECTIVE History of Present Illness Chica Shah is a 57 year old and presents with lower back pain, neck pain, and bilateral shoulders. Past medical history is significant for: PAST MEDICAL HISTORY Diagnosis Date COVID-19 virus infection 06/12/2020 Diabetes mellitus type 2 in obese (HCC) 06/01/2011 Displaced fracture of base of fifth metacarpal bone of right hand with routine healing 02/11/2016 DJD (degenerative joint disease) left knee, hips Dysmetabolic syndrome X 03/14/2008 impaired fasting glucose Extensor intersection syndrome 12/30/2013 Fatty liver 07/20/2011 VIRGEN Fibromyalgia 06/03/2014 Gastric bypass status for obesity 07/2011 Hot flashes due to surgical menopause 11/17/2010 Hyperlipidemia 07/20/2011 Hypothyroidism Knee pain 12/06/2010 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 05/19/2015 Unspecified essential hypertension Urine, incontinence, stress female 12/02/2011 Vitamin D deficiency Intensity of pain: 7 on a scale of 0-10. Duration of pain: (several) Years ago, with no precipitating event.. The pain is located Back and neck. radiates to the shoulder bilaterally. Pain Description: Itching, Burning, Radiating, Numbness, Stabbing Timing: constant Aggravating Factors: activity, standing, walking, lifting, twisting, flexion, driving/riding in car, sleeping, stairs, and pain is constant Alleviating Factors: Medication Interference with: physical activity. In the past 12 months, She completed 0 physical therapy sessions. Physical therapy is n/a. Not Litigation She describes burning pain in the middle of her lower neck with occasional pain in the bilateral hands in the third and fourth fingers on the palmar side which occurs when she is driving. She has lowback pain that she describes as a burning, aching all over her low back that she notes is continuous with her neck pain into her lumbar spine. Driving and climbing stairs makes her back pain worse aswell. She takes duloxetine, gabapentin, tizanidine, mobic. She notes that the tizanidine is the only thing that helps - She also notes that her fibromyalgia is not currently controlled. 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 The patient has not seen other pain providers. Possible Red Flag Chica Shah has no red flag symptoms. Past pain treatment has included massage therapy Past pain medications have included Cymbalta 60 mg, taken in the past, effective 0% Meloxicam 15 mg, taken in the past, effective 0% Diclofenac 1% gel, taken in the past, effective 0% She had relief from the following interventions: None She had relief from the following medications: Gabapentin 300 mg, currently taking, effective 0% Cymbalta 60 mg, currently taking, effective 0% Naproxen 500 mg, currently taking, effective 0% Tizanidine 4 mg, currently taking, effective 0% Review of Systems HENT: Negative. Eyes: Negative. Respiratory: Negative. Cardiovascular: Negative. Gastrointestinal: Negative. Genitourinary: Negative. Musculoskeletal: Positive for back pain, falls, joint pain and neck pain. Skin: Positive for itching. Neurological: Negative. Endo/Heme/Allergies: Negative. Psychiatric/Behavioral: The patient has insomnia. Viri Nuno MA OBJECTIVE Imaging Objective 07/30/2020-X-ray of Lumbar spine done at [facility] imaging services. See scanned documents 08/25/20 07/30/2020-X-ray of Cervical spine done at [facility] imaging services. See scanneddocuments 08/25/20 10/14/19 X-ray of Lumbar Spine/Cervical Spine Cervical spine RESULT: Diffuse osteopenia. Endplate osteophyte formation at multiple levels in the cervical spine. Multilevel bilateral neural foraminal stenosis, more prominent on the right compared to the left. Facet hypertrophy is seen at multiple levels. No fracture. Prevertebral soft tissues are within normal limits. Imaged lung apices are clear. Lumbar spine RESULT: For the purposes of this dictation the iliac crests are at the L4-5 level. There is lumbarization of L5. Endplate osteophyte formation at multiple levels in the lower thoracic and upper lumbar spine. No fracture identified. Subchondral sclerosis subjacent to the SI joints. Osteophyte extending off the acetabulum. Urine Drug toxicology 03/26/20 Oxycodone preliminary results-positive--appropriate 04/29/19 Opiates preliminary results-positive--appropriate 08/10/18 Fentanyl 26 high--appropriate 08/10/18 Norfentanyl quant, urine-276 high--appropriate 05/01/17 Oxycodone preliminary results-positive--appropriate 08/09/16 Oxycodone preliminary results-positive--appropriate Reports listed here were copy and pasted directly into the note after review of the complete reportand/or the images. Those areas highlighted in red are significant and specific to today's encounter. Physical Examination Physical Exam Vitals: BP 130/93 Pulse 74 LMP 11/21/2007 General: Well appearing, alert, in no acute distress, well-hydrated, well nourished. Mental Status: Alert and Oriented x3. Speech is normal. Affect: sad Skin: Skin color, texture, turgor normal, no suspicious rashes or lesions HEENT: Pupils equal, round, reactive to light. Not pinpoint. Pulmonary: Breathing easily without tachypnea or bradypnea. Cardiac: No LE edema. Abdomen: soft, not distended Ambulation: Gait is normal. Patient ambulates, unassisted. Neuro/Musculoskeletal: Left Extension/Rotation: restricted and reproduces pain Right Extension/Rotation: restricted and reproduces pain Left Rotation (normal 50): restricted and reproduces pain Right Rotation (normal 50): restricted and reproduces pain Spurling's Test: Right Negative; Left Negative Facet palpation: Right: tender; Left: tender Facet loading: Right non-tender; Left non-tender Diffusely tender the cervical paraspinals, trapezii, rhomboids bilaterally Shoulders ROM: Right full without pain; Left full without pain +Motor Strength Shoulder Abduction: 4/5 (against gravity/resistance) Biceps: 4/5 (against gravity/resistance) Triceps: 5/5 (full) Wrist Extension: 5/5 (full) Wrist Flexion: 5/5 (full) Interosseous: 5/5 (full) Riveter Helper Strength: preserved +Sensory Exam Right UE: Intact Left UE: Intact THORACIC SPINE : Tenderness of the thoracic paraspinals bilaterally flexion (normal 45): restricted and reproduces pain extension (normal 25): restricted and reproduces pain Facet Palpation: Right tender; Left tender Facet Loading: Right non-tender; Left non-tender Straight Leg Raise: Right Negative; Left Negative Palpation: Tenderness to the lumbar paraspinals bilaterally Palpation over PSIS: Right tender; Left tender +Motor Strength Iliopsoas: 5/5 (full) Quadriceps: 5/5 (full) Hamstrings: 5/5 (full) Ankle Dorsiflexion: 5/5 (full) Ankle Plantarflexion: 5/5 (full) +Sensory Exam Right LE: Intact Left LE: Intact Cory's with anterior pain bilaterally Excoriations noted in the posterior neck, arms bilaterally due to scratching due to pain Patient denies any red flag symptoms such as bowel/bladder dysfunction or sudden weakness. Assessment & Plan Assessment & Plan Date June 07, 2023 The primary encounter diagnosis was Fibromyalgia. Diagnoses of Cervicalgia and Chronic low back pain, unspecified back pain laterality, unspecified whether sciatica present were also pertinent to this visit. This is a 57 year old female with longstanding history of fibromyalgia, chronic neck and low back pain, gastric bypass who presents for complaints of allover body pain. Ms. Byers's that she has pain in her neck in all throughout her back in the midline with occasional radiation down her arms-she notes that this radiation occurs when she is driving. Upon further discussion she notes that she has pain pretty much everywhere including her shoulders, neck, trapezii, throughout her back, and into her hips. The pain waxes and wanes particularly with stress and changes in the weather and she is noted to have difficulty sleeping and problems with fatigue. 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 She has no one to talk to at home as her says that he suffers from pain to. Physical exam was notable for negative Spurling's diffuse tenderness to palpation of the cervical paraspinals, trapezii, rhomboids, thoracic and lumbar paraspinals as well as hips bilaterally. Spurling's was negative bilaterally, straight leg raise was negative bilaterally and the impression from physical exam was generalized tenderness to palpation and with generalized movement. Ms. Byers is on Cymbalta, gabapentin, tizanidine -appropriate medication for her fibromyalgia, however she notes that that is currently not controlled. We discussed the chronic pain recovery program might be able to help her improve from a biopsychosocial standpoint. She notes that she takes a lot of NSAIDs and I warned her that she should not do this with her history of gastric bypass. I would like her to get involved the chronic pain recovery program first and we will consider possible trigger points to her cervical paraspinals that are more tender in the future consider medication adjustments such as low-dose naltrexone in the future. Diagnostics/Referrals: -Chronic Pain Recovery Program referral 2. Pharmaceuticals: -No changes were made today. Pain medications were reviewed. Advised for the patient to discontinue use of NSAIDs due to history of gastric bypass -Consider use of low-dose naltrexone in the future 3. Procedures/Interventions: -Consider future trigger point injections in the cervical paraspinals. 4. Rehabilitation/Physical Therapy -Patient was instructed to perform a physical therapy routine on a daily basis. 5. Complementary and Alternative Therapies: -This was not discussed today, though patient would benefit from future optimization in this area. 6. Follow up: - Return to clinic in: 3 months The above plan and management options were discussed with patient. The patient is in agreement withthe above and verbalized understanding. Yrn Soni MD Electronic signature This office note has been dictated and may contain minor typographic errors that escaped review. I have confirmed and edited as necessary, the PFSH and ROS obtained by others. Relevant History from the Electronic Medical Record Questionnaires: Patient Entered Questionnaires PROMIS Score Percentiles PROMIS Global Health Scale 05/08/2023 Physical Health Percentile 15 Mental Health Percentile 63 Percentiles provide an indication of how the patient's score ranks in relation to the general population. Higher percentile rankings indicate better function/quality of life. 50th percentile is the average of the general population and indicates half of respondents had a worse score. Depression Screening: PHQ-9 04/10/2013 10/14/2019 Score 8 14 PHQ-9 Self-Harm (Item 9) response options: 0 Not at all 1 Several days 2 More than half the days 3 Nearly every day PHQ-9 Levels: 0-4 Minimal depression 5-9 Mild depression 10-14 Moderate depression 15-19 Moderately severe depression 20-27 Severe depression PHQ-9 Score 10/14/2019 14 04/10/2013 8 (0-4) minimal depression, (5-9) mild depression, (10-14) moderate depression, (15-19) moderately severe depression, (20-27) severe depression No flowsheet data found. No flowsheet data found. ALLERGIES Allergen Reactions Celebrex [Celecoxib] Rash Latex Intolerance burning feeling Nsaids (Non-Steroid* Other: See Comments Avoid due to Gastric Bypass Current Medications: naproxen (NAPROSYN) 500 mg tablet Take 1 tablet by mouth twice daily as needed (for pain/inflammation). Take with food. tiZANidine (ZANAFLEX) 4 mg tablet Take 1 tablet by mouth every 6 hours as needed (muscle spasms). miglitol (GLYSET) 25 mg tablet Take 1 tablet by mouth three times daily as needed (with meals as directed.). DULoxetine (CYMBALTA) 60 mg capsule Take 1 capsule by mouth once daily. levothyroxine (SYNTHROID) 88 mcg tablet Take 1 tablet by mouth daily before breakfast. atorvastatin (LIPITOR) 20 mg tablet Take 1 tablet by mouth three times a week. gabapentin (NEURONTIN) 300 mg capsule Take 2 capsules by mouth twice daily for 180 days. meloxicam (MOBIC) 15 mg tablet Take 1 tablet by mouth once daily. ergocalciferol 50,000 unit capsule (VITAMIN D2, DRISDOL) Take 1 capsule by mouth one time a week. dulaglutide (TRULICITY) 4.5 mg/0.5 mL pen injector Inject 4.5 mg subcutaneously one time a week. cyanocobalamin 1,000 mcg/mL Inject once a week on Tuesdays for 3 weeks, then once a month Syringe with Needle, Disp, (SYRINGE 3CC/25GX1) 3 mL 25 gauge x 1 For B12 injections blood sugar diagnostic (BLOOD GLUCOSE TEST) test strip Test blood sugar(s) 2 times daily. Dx: Type 2 DM - Uncontrolled E11.65 Insulin: No Lancets lancets Test 3 times weekly, Insulin Dep? No E11.9 DM 2 nystatin-triamcinolone (MYCOLOG) ointment Apply sparingly to skin area with rash twice daily as needed. omeprazole (PRILOSEC) 40 mg capsule Take 1 capsule by mouth once daily. diclofenac sodium (VOLTAREN) 1 % topical gel Apply 2 g to affected area four times daily as needed (pain.). diphenhydramine HCl (BENADRYL ALLERGY ORAL) Take 2 capsules by mouth daily at bedtime. PAST MEDICAL HISTORY Diagnosis Date COVID-19 virus infection 06/12/2020 Diabetes mellitus type 2 in obese (HCC) 06/01/2011 Displaced fracture of base of fifth metacarpal bone of right hand with routine healing 02/11/2016 DJD (degenerative joint disease) left knee, hips Dysmetabolic syndrome X 03/14/2008 impaired fasting glucose Extensor intersection syndrome 12/30/2013 Fatty liver 07/20/2011 VIRGEN Fibromyalgia 06/03/2014 Gastric bypass status for obesity 07/2011 Hot flashes due to surgical menopause 11/17/2010 Hyperlipidemia 07/20/2011 Hypothyroidism Knee pain 12/06/2010 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 05/19/2015 Unspecified essential hypertension Urine, incontinence, stress female 12/02/2011 Vitamin D deficiency PAST SURGICAL HISTORY Procedure Laterality Date BUNIONECTOMY, LAPIDUS-TYPE Right 09/16/2022 Dr. Santizo DELIVERY ONLY 08/21/2000 , low transverse COLONOSCOPY - DIAGNOSTIC 10/29/2020 EGD 10/29/2020 GASTRIC BYPASS, SHASHA-EN-Y 08/16/2011 laparoscopic, [facility] HYSTERECTOMY HX 08/21/2007 Menorrhagia, Vaginal hysterectomy LAPAROSCOPIC CHOLECYSTECTOMY 12/02/2020 ROTATOR CUFF REPAIR 06/10/2014 Dr. Hansen, Right shoulder ROTATOR CUFF REPAIR 09/09/2014 Redo, right shoulder. 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 [place]ARRS: PDMP website checked and validated and is consistent with medication report. *Information in italics was copied from the shared EMR Medical Decision Making: Problems: Moderate: 2+ stable chronic illnesses Data: Unique source(s) for external note(s) reviewed: 2 Unique test result(s) reviewed: 1 Risk: Low: Low risk from testing/treatment Medical Decision Making Level: 4 - Moderate [facility] Miscellaneous Notes* Telephone Encounter - Elle Mina RN - 06/06/2023 10:13 AM EDT Spoke to patient, gave her message below, she expressed understanding, also sent this message to her My chart per patient request. This is [facility] office calling with an appointment reminder. You are scheduled with Dr. Soni on Wednesday, June 07, 2023 at 8 am with an arrival time of 7:45 am. At [facility] building room 525. Please be advised that Dr. Soni is primarily an interventional pain management provider and does not take over Opioid/Narcotic pain medication regimen. If you have been evaluated by [facility] Provider currently or within the last 3 years , you will need to contact their offices to address switching care if recommended. Please bring any outside medical records to your appointment if they are not updated into the [facility]. Please be advised that the appointment with pain management will be for consultation only, any further recommendations will be provided to you at the end of the visit. If you have any question regarding your appointment , please contact the office appointment desk directly to discuss. ( [facility]: [phone] option 3). documented in this [facility]-18-[facility]23 Instructions* Patient Instructions* Yani Charlton APRN.JASPREET - 05/08/2023 11:53 AM EDT Images from the original note were not included. FACT SHEET FOR PATIENTS, PARENTS, AND CAREGIVERS EMERGENCY USE AUTHORIZATION (EUA) OF PAXLOVID FOR CORONAVIRUS DISEASE 2019 (COVID-19) You are being given this Fact Sheet because your healthcare provider believes it is necessary to provide you with PAXLOVID for the treatment of otnw-op-vuesvkbc coronavirus disease (COVID-19) caused by the SARS-CoV-2 virus. This Fact Sheet contains information to help you understand the risks and benefits of taking the PAXLOVID you may receive. This Fact Sheet also contains information about how t o take PAXLOVID and how to report side effects or problems with the appearance or packaging of PAXLOVID. The U.S. Food and Drug Administration (FDA) has issued an Emergency Use Authorization (EUA) to makePAXLOVID available for the treatment of xfui-um-hxaczdyr COVID-19 in adults and children 12 years of age and older weighing at least 88 pounds (40 kg) who are at high risk for progression to severe COVID-19, including hospitalization or (for more details about an EUA please see What is an Emergency Use Authorization? at the end of this document). Read this Fact Sheet for information about PAXLOVID. Talk to your healthcare provider about your options or if you have any questions. It is your choice to take PAXLOVID. What is COVID-19? COVID-19 is caused by a virus called a coronavirus. You can get COVID-19 through close contact withanother person who has the virus. COVID-19 illnesses have ranged from very fggj-yp-emxbpy, including illness resulting in . While information so far suggests that most COVID-19 illness is mild, serious illness can happen and maycause some of your other medical conditions to become worse. Older people and people of all ages with severe, long lasting (chronic) medical conditions like heart disease, lung disease, and diabetes,for example seem to be at higher risk of being hospitalized for COVID-19. What is PAXLOVID? PAXLOVID is a medicine that is available under EUA for the treatment of tbkq-ls-ouhzweis COVID-19 in adults and children 12 years of age and older weighing at least 88 pounds (40 kg) who are at high risk for progression to severe COVID-19, including hospitalization or . Although PAXLOVID is FDA- approved for the treatment of COVID-19 in certain adults (see section What other treatment choicesare there?), PAXLOVID use in children remains investigational because it is still being studied. There is limited information about the safety and effectiveness of using PAXLOVID to treat children with znmx-lz-cdqggwyp COVID-19. What is the most important information I should know about PAXLOVID? PAXLOVID can interact with other medicines causing severe or life-threatening side effects or . It is important to know the medicines that should not be taken with PAXLOVID. Do not take PAXLOVID if: you are taking any of the following medicines: o alfuzosin o amiodarone o apalutamide o carbamazepine o colchicine o dihydroergotamine o dronedarone o eletriptan o eplerenone o ergotamine o finerenone o flecainide o flibanserin o ivabradine o lomitapide o lovastatin o lumacaftor/ivacaftor o lurasidone o methylergonovine o midazolam (oral) o naloxegol o phenobarbital o phenytoin o pimozide o primidone o propafenone o quinidine o ranolazine o rifampin o rifapentine o Александр s Wort (hypericum perforatum) o sildenafil (Revatio ) for pulmonary arterial hypertension o silodosin o simvastatin o tolvaptan o triazolam o ubrogepant o voclosporin These are not the only medicines that may cause serious or life-threatening side effects if taken with PAXLOVID. PAXLOVID may increase or decrease the levels of multiple other medicines. It is very important to tell your healthcare provider about all of the medicines you are taking because additional laboratory tests or changes in the dose of your other medicines may be necessary during treatment with PAXLOVID. Your healthcare provider may also tell you about specific symptoms to watch out for that may indicate that you need to stop or decrease the dose of some of your other medicines. you are allergic to nirmatrelvir, ritonavir, or any of the ingredients in PAXLOVID. See the end of this leaflet for a complete list of ingredients in PAXLOVID. See What are the important possible side effects of PAXLOVID? for signs and symptoms of allergic reactions. What should I tell my healthcare provider before I take PAXLOVID? Tell your healthcare provider if you: have kidney problems. You may need a different dose of PAXLOVID. have liver problems, including hepatitis. have Human Immunodeficiency Virus 1 (HIV-1) infection. PAXLOVID may lead to some HIV-1 medicines not working as well in the future. are or plan to become . It is not known if PAXLOVID can harm your unborn baby. Tell your healthcare provider right away if you are or if you become . are or plan to breastfeed. It is not known if PAXLOVID can pass into your breast milk. Talk to your healthcare provider about the best way to feed your baby during treatment with PAXLOVID. Some medicines may interact with PAXLOVID and may cause serious side effects. Tell your healthcare provider about all the medicines you take, including prescription and ryoz-vsh-bjsitmw medicines, vitamins, and herbal supplements. Your healthcare provider can tell you if it is safe to take PAXLOVID with other medicines. You can ask your healthcare provider or pharmacist for a list of medicines that interact with PAXLOVID. Do not start taking a new medicine without telling your healthcare provider. Tell your healthcare provider if you are taking combined control (hormonal contraceptive). PAXLOVID may affect how your hormonal contraceptives work. Females who are able to become should use another effective alternative form of contraception or an additional barrier method of contraception during treatment with PAXLOVID. Talk to your healthcare provider if you have any questions about contraceptive methods that might be right for you. How do I take PAXLOVID? Take PAXLOVID exactly as your healthcare provider tells you to take it. PAXLOVID consists of 2 medicines: nirmatrelvir tablets and ritonavir tablets. The 2 medicines are taken together 2 times each day for 5 days. Nirmatrelvir is an oval, pink tablet. Ritonavir is a white or off-white tablet. PAXLOVID is available in 2 Dose Packs (see Figures A and B below). Your healthcare provider will prescribe the PAXLOVID Dose Pack that is right for you. If you have kidney disease, your healthcare provider may prescribe a lower dose (see Figure B). Talk to your healthcare provider to make sure you receive the correct Dose Pack. Do not remove your PAXLOVID tablets from the blister card before you are ready to take your dose. Take your first dose of PAXLOVID in the morning or evening, depending on when you pickling operator your prescription, or as your healthcare provider tells you to. Swallow the tablets whole. Do not chew, break, or crush the tablets. Take PAXLOVID with or without food. Do not stop taking PAXLOVID without talking to your healthcare provider, even if you feel better. If you miss a dose of PAXLOVID within 8 hours of the time it is usually taken, take it as soon as you remember. If you miss a dose by more than 8 hours, skip the missed dose and take the next dose atyour regular time. Do not take 2 doses of PAXLOVID at the same time. If you take too much PAXLOVID, call your healthcare provider or go to the nearest hospital emergency room right away. If you are taking a ritonavir- or cobicistat-containing medicine to treat hepatitis C or HIV-1 infection, you should continue to take your medicine as prescribed by your healthcare provider. Talk to your healthcare provider if you do not feel better or if you feel worse after 5 days. What are the important possible side effects of PAXLOVID? PAXLOVID may cause serious side effects, including: Allergic reactions, including severe allergic reactions (anaphylaxis) have happened during treatment with PAXLOVID. Stop taking PAXLOVID and get medical help right away if you get any of the following symptoms of an allergic reaction: o skin rash, hives, blisters or peeling skin o painful sores or ulcers in the mouth, nose, throat or genital area o swelling of the mouth, lips, tongue or face o trouble swallowing or breathing o throat tightness o hoarseness Liver Problems. Tell your healthcare provider right away if you get any of the following signs and symptoms of liver problems during treatment with PAXLOVID: o loss of appetite o yellowing of your skin and the white of eyes o dark-colored urine o pale colored stools o itchy skin o stomach-area (abdominal) pain The most common side effects of PAXLOVID include: altered sense of taste and diarrhea. Other possible side effects include: headache vomiting abdominal pain nausea high blood pressure feeling generally unwell These are not all the possible side effects of PAXLOVID. For more information, ask your healthcare provider or pharmacist. What other treatment choices are there? PAXLOVID is FDA-approved for the treatment of yhgx-ru-xtzmtgwa COVID-19 in certain adults; however,there are not sufficient quantities of the approved presentations (i.e., dose packs) of PAXLOVID atthis time. This EUA continues to authorize the emergency use of PAXLOVID for the approved patient population to ensure continued access in order to meet the public health need. VEKLURY (remdesivir) is FDA-approved for the treatment of wjdv-xy-hvmnhsca COVID-19 in certain adults and children. Talk with your healthcare provider to see if VEKLURY is appropriate for you. For information on the emergency use of other medicines that are authorized by FDA to treat people with COVID-19, please go to https://www.fda.gov/xdiilacxf-oqgrtsbmqtgb-fga-response/gqm-fidlw-ezmhgxg kho-jaj-twnypa-framework/xdumbtgtu-xhu-ciretiomcmmth. Your healthcare provider may talk with you about clinical trials for which you may be eligible. It is your choice to be treated or not to be treated with PAXLOVID. Should you decide not to receive it or for your child not to receive it, it will not change your standard medical care. What if I am or ? There is limited experience treating women or mothers with PAXLOVID. For a mother and unborn baby, the benefit of taking PAXLOVID may be greater than the risk from the treatment. If you are , discuss your options and specific situation with your healthcare provider. If you are , discuss your options and specific situation with your healthcare provider. How do I report side effects or problems with the appearance or packaging of PAXLOVID? Contact your healthcare provider if you have any side effects that bother you or do not go away. Report side effects or problems with the appearance or packaging of PAXLOVID (see Figures A and B above for examples of PAXLOVID Dose Packs) to FDA [employer] at www.fda.gov/medwatch or call 8-534-VBT-2680 or you can report side effects to [employer]. at the contact information provided below. How should I store PAXLOVID? Store PAXLOVID tablets at room temperature, between 68?F to 77?F (20?C to 25?C). Keep PAXLOVID and all medicines out of the reach of children. What if I have questions about the expiration date for my PAXLOVID? The FDA has extended the expiration date (shelf-life) for some lots of PAXLOVID. To find the extended expiration date, enter the lot number found on the side of carton or bottom of blister pack at this website: https://www.[employer]/ or talk with your healthcare provider. Information onthe authorized shelf-life extensions for PAXLOVID may also be found at https://www.fda.gov/emergency -bfdkfpjkvatd-oar-deejhqxw/dcp-hdira-qvrfyaooxb-skh-werwzk-vhfclpbbc/expiration- dating-extension. How can I learn more about COVID-19? Ask your healthcare provider. Visit https://www.cdc.gov/COVID19. Contact your local or state public health department. What is an Emergency Use Authorization (EUA)? The [place] FDA has made PAXLOVID available under an emergency access mechanism called an Emergency Use Authorization (EUA). The EUA is supported by a [place] of Health and Human Services (HHS) declaration that circumstances exist to justify the emergency use of drugs and biological products during the COVID-19 pandemic. In issuing an EUA, the FDA has determined, among other things, that based on the total amount of scientific evidence available including data from adequate and well-controlled clinical trials, if available, it is reasonable to believe that the product may be effective for diagnosing, treating, or preventing COVID-19, or a serious or life-threatening disease or condition caused by COVID-19; that the known and potential benefits of the product, when used to diagnose, treat, or prevent such disease or condition, outweigh the known and potential risks of such product; and that there are no adequate, approved, and available alternatives. All of these criteria must be met to allow for the product to be available under an EUA. The EUA for PAXLOVID is in effect for the duration of the COVID-19 declaration justifying emergency use of this product, unless the relevant EUA declaration is terminated or the EUA revoked (after which the products may no longer be used under the EUA). What are the ingredients in PAXLOVID? Active ingredient: nirmatrelvir and ritonavir Nirmatrelvir inactive ingredients: colloidal silicon dioxide, croscarmellose sodium, lactose monohydrate, microcrystalline cellulose, and sodium stearyl fumarate. Film-coating contains: hydroxy propyl methylcellulose, iron oxide red, polyethylene glycol, and titanium dioxide. Ritonavir inactive ingredients: anhydrous dibasic calcium phosphate, colloidal silicon dioxide, copovidone, sodium stearyl fumarate, and sorbitan monolaurate. The film coating may contain: colloidal anhydrous silica, colloidal silicon dioxide, hydroxypropyl cellulose, hypromellose, polyethylene glycol, polysorbate 80, talc, and titanium dioxide. Additional Information For general questions, visit the website or call the telephone number provided below. Website: [email or web address] Telephone number: (1-580-O39-EADY) Distributed by [employer] [place] [address] [id number] Revised: 12/2022 documented [facility] History of Present illness Narrative* Yani Charlton APRN.CNP - 05/08/2023 11:43 AM EDT VIRTUAL VISIT PROGRESS NOTE This is an encounter initiated for an established patient, parent or guardian not originating from a related Evaluation & Management service provided within the previous 7 days nor leading to an Evaluation & Management service or procedure within the next 24 hours or soonest available appointment. This is a virtual visit. It required patient-provider interaction for the medical decision making as documented below. Patient has consented to this telephone encounter. I have communicated my name and active licensure. The patient's identity and physical location wereverified at the time of this visit. Either the patient or their legal customer engagement representative has been informed of the risks and benefits of -- and alternatives to -- treatment through a remote evaluation andconsents to proceed with the evaluation remotely. Persons Present: patient Data Reviewed: most recent notes in chart Patient has consented to patient-provider interaction via telephone/virtual visit for the medical decision making documented in this telephone/virtual visit encounter. Total Time Spent: 16 minutes SUBJECTIVE Chica Shah is a 57 year old female here today for acute concern. Chief Complaint Patient presents with: Covid Positive HPI COVID positive, had this back in 2019. Tested positive on Monday. Started with symptoms on Monday. Did not feel great. At this point not feeling great, body aches, headache. Advil cold and sinus helping a little. No trouble breathing, no chest pain or chest tightness. Last labs 04/25 with normal kidney function and normal liver enzymes. Interested in COVID oral treatment. Her medications were reviewed today and her list is now up to date. Medications Current Outpatient Medications Medication Sig nirmatrelvir tablet 300 mg (150 mg x 2) and ritonavir tablet 100 mg in a dose pack (PAXLOVID) Administer TWO pink nirmatrelvir 150 mg tablets and ONE white ritonavir 100 mg tablet for a total of three tablets twice daily. tiZANidine (ZANAFLEX) 4 mg tablet Take 1 tablet by mouth every 6 hours as needed (muscle spasms). miglitol (GLYSET) 25 mg tablet Take 1 tablet by mouth three times daily as needed (with meals as directed.). DULoxetine (CYMBALTA) 60 mg capsule Take 1 capsule by mouth once daily. levothyroxine (SYNTHROID) 88 mcg tablet Take 1 tablet by mouth daily before breakfast. atorvastatin (LIPITOR) 20 mg tablet Take 1 tablet by mouth three times a week. gabapentin (NEURONTIN) 300 mg capsule Take 2 capsules by mouth twice daily for 180 days. meloxicam (MOBIC) 15 mg tablet Take 1 tablet by mouth once daily. ergocalciferol 50,000 unit capsule (VITAMIN D2, DRISDOL) Take 1 capsule by mouth one time a week. dulaglutide (TRULICITY) 4.5 mg/0.5 mL pen injector Inject 4.5 mg subcutaneously one time a week. cyanocobalamin 1,000 mcg/mL Inject once a week on Tuesdays for 3 weeks, then once a month Syringe with Needle, Disp, (SYRINGE 3CC/25GX1) 3 mL 25 gauge x 1 For B12 injections blood sugar diagnostic (BLOOD GLUCOSE TEST) test strip Test blood sugar(s) 2 times daily. Dx: Type 2 DM - Uncontrolled E11.65 Insulin: No Lancets lancets Test 3 times weekly, Insulin Dep? No E11.9 DM 2 nystatin-triamcinolone (MYCOLOG) ointment Apply sparingly to skin area with rash twice daily as needed. omeprazole (PRILOSEC) 40 mg capsule Take 1 capsule by mouth once daily. diclofenac sodium (VOLTAREN) 1 % topical gel Apply 2 g to affected area four times daily as needed (pain.). diphenhydramine HCl (BENADRYL ALLERGY ORAL) Take 2 capsules by mouth daily at bedtime. No current facility-administered medications for this visit. ALLERGIES Allergen Reactions Celebrex [Celecoxib] Rash Latex Intolerance burning feeling Nsaids (Non-Steroid* Other: See Comments Avoid due to Gastric Bypass ACTIVE PROBLEM LIST Intertrigo - 10/24/2022 Obesity, Class I, Bmi 30-34.9 - 06/13/2022 Muscular Weakness - 05/28/2021 Falls Frequently - 05/28/2021 Insomnia Due to Medical Condition - 08/10/2018 Cervicalgia - 04/23/2015 Fibromyalgia - 06/03/2014 Hot Flashes Due to Surgical Menopause - 01/25/2012 Urine, Incontinence, Stress Female - 12/02/2011 Gastric Bypass Status for Obesity Diabetes mellitus type 2 in obese (HCC) - 07/20/2011 Hyperlipidemia - 07/20/2011 Fatty Liver - 07/20/2011 Vitamin D Deficiency - 02/17/2011 Chronic Low Back Pain - 12/22/2008 Hypothyroidism - 06/10/2008 Social History Tobacco Use Smoking status: Never Passive exposure: Current Smokeless tobacco: Never Vaping Use Vaping Use: Never used Substance Use Topics Alcohol use: No Drug use: No Review of Systems Constitutional: Positive for fatigue. Respiratory: Negative. Cardiovascular: Negative. Musculoskeletal: Positive for arthralgias and myalgias. OBJECTIVE LMP 11/21/2007 Physical Exam Constitutional: General: She is awake. She is not in acute distress. Comments: During the virtual visit she is alert, oriented, breathing is quiet, not labored, no apparent distress. Neurological: Mental Status: She is alert. Psychiatric: Behavior: Behavior is cooperative. ASSESSMENT/PLAN: 1. COVID - ICD9: 079.89, ICD10: U07.1 (primary diagnosis) Due to her diabetes she meets criteria for treatment with Paxlovid. Advised to hold statin while taking this and restart 1-2 days after therapy complete. - NIRMATRELVIR 300 MG (150 MG X2)-RITONAVIR 100 MG TABLET,DOSE PACK 2. Diabetes mellitus type 2 in obese (HCC) - ICD9: 250.00, 278.00, ICD10: E11.69, E66.9 Patient verbalizes understanding of instructions from today's visit and in agreement with treatmentplan. Questions answered. Agrees to call the office if symptoms do not improve or if they worsen. Return if symptoms worsen or fail to improve, for Keep next scheduled appointment.. Patient has consented to patient-provider interaction via telephone/virtual visit for the medical decision making documented in this telephone/virtual visit encounter. Total Time Spent: 16 minutes Nirmatrelvir/Ritonavir (Paxlovid) Considerations Paxlovid is FDA-approved for treatment of mild to moderate COVID-19 in adults who are at high risk for progression to severe COVID-19. Consider use of Paxlovid in the following examples of high risk patients (list is not all inclusive): Age over 65 years Cardiovascular and cerebrovascular disease Chronic disease state (kidney, liver, lung) Diabetes (type 1 or type 2) Immunocompromised state (cancer, solid organ or blood stem cell transplant, HIV) Obesity Paxlovid warnings include serious drug interactions (co-administration with drugs highly dependent on CYP3A for clearance), hypersensitivity reactions, hepatotoxicity, and risk of HIV-1 resistance development. Ynai Charlton APRN.BOBTAIL DRIVER May 08, 2023 11:52 AM COVID-19 Oral Antiviral Review for TREATMENT of COVID-19: Paxlovid (nirmatrelvir/ritonavir) Paxlovid (nirmatrelvir/ritonavir) [x] 12 years and older (if 12-17 years, must weigh at least 40 kg) [x] Within 5 days of COVID-19 symptom onset [x] Not requiring hospitalization at any time for the management of COVID-19 [x] Not requiring supplemental oxygen or not requiring change in baseline supplemental oxygen (SpO2> 94% on room air or at baseline supplemental oxygen) [x] Not utilized for pre-exposure or post-exposure prophylaxis for prevention of COVID-19 [x] No severe renal impairment (eGFR < 30 mL/min) or severe hepatic impairment (Child-Martin ClassC) [x] No pertinent drug-drug interactions or drug-drug interactions appropriately addressed [x] Meets high-risk clinical criteria for progression to severe COVID-19 infection as defined in the COVID-19 treatment considerations Criteria Met: Yes If patient does not meet above criteria for COVID-19 oral antiviral therapy, notify ordering provider. Yani Charlton APRN.CNP May 08, 2023 11:55 AM documented in this encounterMet[facility] Miscellaneous Notes* Telephone Encounter - Alejandra Win RN - 05/08/2023 10:06 AM EDT Went over quarantine and isolation precautions. Went over red flags and when to go to the hospital. Beginning Home Isolation Isolation is used to separate people infected with SARS-CoV-2, the virus that causes COVID-19, frompeople who are not infected. People who are in isolation should stay home until it s safe for them to be around others. In the home, anyone sick or infected should separate themselves from others by staying in a specific sick room or area and using a separate bathroom (if available). Isolation or Quarantine: What's the difference? Quarantine keeps someone who might have been exposed to the virus away from others. Isolation keeps someone who is infected with the virus away from others, even in their home. Who needs to isolate People who have COVID-19 People who have symptoms of COVID-19 and are able to recover at home People who have no symptoms (are asymptomatic) but have tested positive for infection with SARS-CoV-2 Steps to take Stay home except to get medical care Monitor your symptoms. Stay in a separate room from other household members, if possible Use a separate bathroom, if possible Avoid contact with other members of the household and pets Don t share personal household items, like cups, towels, and utensils Wear a mask when around other people, if you are able to When to seek emergency medical attention Look for emergency warning signs* for COVID-19. If someone is showing any of these signs, seek emergency medical care immediately: Trouble breathing Persistent pain or pressure in the chest New confusion Inability to wake or stay awake Bluish lips or face *This list is not all possible symptoms. Please call your medical provider for any other symptoms that are severe or concerning to you. Call 911 or call ahead to your local emergency facility: Notify the electronic masking system operator that you are seeking care for someone who has or may have COVID-19. Ending Home Isolation - When you can be around others after you had or likely had COVID-19 When you can be around others after you had or likely had COVID-19 If You Test Positive for COVID-19 (Isolation) Everyone, regardless of vaccination status: Stay home for 5 days. Note: Day 0 is your first day of symptoms or the date of collection of a positive viral test if no symptoms. Day 1 is the first full day after symptoms developed or test specimen was collected. If you have no symptoms or your symptoms are resolving after 5 days, you can leave your house. Continue to wear a mask around others for 5 additional days. If you have a fever, continue to stay home until your fever resolves, even if it is longer than 5 days. If You Were Exposed to Someone with COVID-19 (Quarantine) If you: 1. Have been boosted OR 2. Completed the primary series of Pfizer or Moderna vaccine within the last 6 months OR 3. Completed the primary series of J&J vaccine within the last 2 months THEN: 1. Wear a mask around others for 10 days. 2. Test on day 5, if possible. If you develop symptoms get a test and stay home. If You Were Exposed to Someone with COVID-19 (Quarantine) If you: 1. Completed the primary series of Pfizer or Moderna vaccine over 6 months ago and are not boosted OR 2. Completed the primary series of J&J over 2 months ago and are not boosted OR 3. Are unvaccinated THEN: 1. Stay home for 5 days. After that continue to wear a mask around others for 5 additional days. 2. If you can't quarantine you must wear a mask for 10 days. 3. Test on day 5 if possible. If you develop symptoms get a test and stay home. I had COVID-19 or I tested positive for COVID-19 and I have a weakened immune system If you have a weakened immune system (immunocompromised) due to a health condition or medication, you might need to stay home and isolate longer than 10 days. Talk to your healthcare provider for more information. Your doctor may work with an infectious disease expert at your local health department to determinewhen you can be around others. documented in this encounterMet[facility]09-15-2023 History of Present illness Narrative* Rohit Kumar APRN.CNP - 05/05/2023 7:00 PM EDT This is an Express Care eVisit note for Chica Shah eVisit/Questionnaire reviewed The chief complaint for the visit - Patient presents with: Sinus Problem Recommendations/Treatment plan - See My Chart Message to patient; eVisit is incomplete. Rohit Kumar APRN.CNP I spent <5 minutes on this eVisit in chart review and coordination of care. documented in this encounterMet[facility]-15-2023 History of Present illness Narrative* Debby Maxwell APRN.CNP - 05/05/2023 2:54 PM EDT This is an Express Care eVisit note for Chica Shah eVisit/Questionnaire reviewed The chief complaint for the visit - Patient presents with: Covid19 Concern Recommendations/Treatment plan - See My Chart Message to patient Time spent <1 minute Debby Maxwell APRN.CNP documented in this encounterMet[facility]-07-[facility]23 History of Present illness Narrative* Jabari Murillo MD - 04/27/2023 10:35 AM EDT This note was created using NoteWriter. Subjective Chica Shah is a 57 year old female was here for follow up. She was having more chronic pain. Massage therapy did not help. Tizanidine helped, but she was taking more for benefit. She saw GEOSPATIAL SCIENTIST and gabapentin was increased with equivocal benefit. Syncope was evaluated by neurology, but tilt table with EEG was scheduled out to 2023. Compression stocking was recommended but not prescribed. Diabetes was fair, with high readings depending on certain foods. She stopped metformin in favor ofa supplement. She took metformin if her glucose gets high but only infrequently. Review of Systems Constitutional: Negative for unexpected weight change. Musculoskeletal: Positive for back pain, myalgias and neck pain. Neurological: Positive for headaches. ACTIVE PROBLEM LIST Hypothyroidism PAIN BACK, LOW Vitamin D Deficiency Diabetes mellitus type 2 in obese (HCC) Hyperlipidemia Fatty Liver Gastric Bypass Status for Obesity Urine, Incontinence, Stress Female Hot Flashes Due to Surgical Menopause Fibromyalgia Cervicalgia Insomnia Due to Medical Condition Muscular Weakness Falls Frequently Obesity, Class I, Bmi 30-34.9 Intertrigo Social History Tobacco Use Smoking status: Never Passive exposure: Current Smokeless tobacco: Never Vaping Use Vaping Use: Never used Substance Use Topics Alcohol use: No Drug use: No Current Outpatient Medications Medication Sig DULoxetine (CYMBALTA) 60 mg capsule Take 1 capsule by mouth once daily. tiZANidine (ZANAFLEX) 4 mg tablet Take 1 tablet by mouth every 8 hours as needed (muscle spasms). levothyroxine (SYNTHROID) 88 mcg tablet Take 1 tablet by mouth daily before breakfast. atorvastatin (LIPITOR) 20 mg tablet Take 1 tablet by mouth three times a week. gabapentin (NEURONTIN) 300 mg capsule Take 2 capsules by mouth twice daily for 180 days. meloxicam (MOBIC) 15 mg tablet Take 1 tablet by mouth once daily. ergocalciferol 50,000 unit capsule (VITAMIN D2, DRISDOL) Take 1 capsule by mouth one time a week. dulaglutide (TRULICITY) 4.5 mg/0.5 mL pen injector Inject 4.5 mg subcutaneously one time a week. cyanocobalamin 1,000 mcg/mL Inject once a week on Tuesdays for 3 weeks, then once a month Syringe with Needle, Disp, (SYRINGE 3CC/25GX1) 3 mL 25 gauge x 1 For B12 injections blood sugar diagnostic (BLOOD GLUCOSE TEST) test strip Test blood sugar(s) 2 times daily. Dx: Type 2 DM - Uncontrolled E11.65 Insulin: No Lancets lancets Test 3 times weekly, Insulin Dep? No E11.9 DM 2 nystatin-triamcinolone (MYCOLOG) ointment Apply sparingly to skin area with rash twice daily as needed. omeprazole (PRILOSEC) 40 mg capsule Take 1 capsule by mouth once daily. diclofenac sodium (VOLTAREN) 1 % topical gel Apply 2 g to affected area four times daily as needed (pain.). diphenhydramine HCl (BENADRYL ALLERGY ORAL) Take 2 capsules by mouth daily at bedtime. metFORMIN (GLUCOPHAGE) 500 mg tablet Take 2 tablets by mouth twice daily with meals. . (Patient nottaking: Reported on 04/27/2023) Biotin 1 mg tab Take 1 tablet by mouth once daily. (Patient not taking: Reported on 04/27/2023) No current facility-administered medications for this visit. Objective BP (P) 118/80 (BP Site: Left Arm, BP Position: Sitting, BP Cuff Size: Large Adult) Pulse (P) 72 Temp (P) 36.6 C (97.8 F) (Temporal) Resp (P) 16 Wt (P) 73 kg (161 lb) LMP 11/21/2007 BMI (P) 29.45 kg/m Physical Exam Constitutional: General: She is not in acute distress. Appearance: She is not ill-appearing. Neurological: Mental Status: She is alert. Component Latest Ref Rng & Units 04/25/2023 Protein, Total 6.3 - 8.0 g/dL 6.4 Albumin 3.9 - 4.9 g/dL 4.1 Calcium 8.5 - 10.2 mg/dL 9.8 Bilirubin, Total 0.2 - 1.3 mg/dL 0.5 Alkaline Phosphatase 34 - 123 U/L 150 (H) AST 13 - 35 U/L 20 ALT 7 - 38 U/L 21 Glucose 74 - 99 mg/dL 115 (H) BUN 7 - 21 mg/dL 10 Creatinine 0.58 - 0.96 mg/dL 0.84 Sodium 136 - 144 mmol/L 139 Potassium 3.7 - 5.1 mmol/L 4.7 Chloride 97 - 105 mmol/L 105 CO2 22 - 30 mmol/L 24 Anion Gap 9 - 18 mmol/L 10 eGFR >=60 mL/min/1.73m 81 WBC 3.70 - 11.00 k/uL 6.28 RBC 3.90 - 5.20 m/uL 4.35 Hemoglobin 11.5 - 15.5 g/dL 11.7 Hematocrit 36.0 - 46.0 % 38.0 MCV 80.0 - 100.0 fL 87.4 MCH 26.0 - 34.0 pg 26.9 MCHC 30.5 - 36.0 g/dL 30.8 RDW-CV 11.5 - 15.0 % 13.9 Platelet Count 150 - 400 k/uL 282 MPV 9.0 - 12.7 fL 11.6 Absolute nRBC <0.01 k/uL <0.01 Cholesterol, Total <200 mg/dL 122 Triglyceride <150 mg/dL 109 HDL Cholesterol >39 mg/dL 42 Non HDL Cholesterol <130 mg/dL 80 Fasting Time hrs 13 VLDL Cholesterol <30 mg/dL 22 TC:HDL Ratio <5.10 2.90 LDL Cholesterol <100 mg/dL 58 LDL:HDL Ratio <2.54 1.38 Hemoglobin A1C 4.3 - 5.6 % 6.1 (H) Estimated Average Glucose mg/dL 128 Glucose meter data or log was reviewed for the past month. Range: 59-298. Average: 147. Patient wastesting none to 3 times daily. Higher frequency of testing needed: yes. Reason: medication adjustment, uncontrolled DM, labile blood sugars. Assessment and Plan 1. Diabetes mellitus type 2 in obese (HCC) - ICD9: 250.00, 278.00, ICD10: E11.69, E66.9 (primary diagnosis) - Improving control - Continue current medications - Stop metformin ER per patient preference. - CONSULT TO OPHTHALMOLOGY - BASIC METABOLIC PNL - HGB A1C - MIGLITOL 25 MG TABLET. New medication. Take one (1) tablet three(3) times daily as needed. Take with meal anticipated to have high glycemic index. Discussed medication dosage, usage, goals of therapy, and side effects. 2. Encounter for screening mammogram for malignant neoplasm of breast - ICD9: V76.12, ICD10: Z12.31 - [facility] SCREENING W DENE[facility] 3. Syncope, unspecified syncope type - ICD9: 780.2, ICD10: R55 Evaluation pending. - COMPRESSION STOCKINGS 4. Cervicalgia - ICD9: 723.1, ICD10: M54.2 Chronic pain. - CONSULT TO PAIN MGT - TIZANIDINE 4 MG TABLET 5. Chronic low back pain, unspecified back pain laterality, unspecified whether sciatica present - ICD9: 724.2, 338.29, ICD10: M54.50, G89.29 Chronic pain. - CONSULT TO PAIN MGT - TIZANIDINE 4 MG TABLET 6. Fibromyalgia - ICD9: 729.1, ICD10: M79.7 Chronic pain. - TIZANIDINE 4 MG TABLET Time spent was all for discussion and care coordination. Jabari Murillo MD documented in this encounterMet[facility]08-31-2023 Miscellaneous Notes* Telephone Encounter - Azalia Haas LPN - 04/20/2023 8:43 AM EDT TC to , given below recommendation, verbalized understanding. Patient scheduled to Establish Care. Azalia Haas LPN * Telephone Encounter - Jabari Murillo MD - 04/19/2023 8:57 PM EDT Okay to schedule new patient. Express care or ER for worsening nosebleeds. * Telephone Encounter - Kimmie Braswell LPN - 04/17/2023 8:27 AM EDT Pt calls to ask if Dr. Bearden would be willing to take her Xavi on as a pt. used to seeDrNaty Saunders but had not been seen since 2016. Pt reports that has high blood pressure and has been experiencing bloody nose episodes. Please review and advise. Call pt with dr's message. Kimmie Braswell LPN documented in this encounterMet[facility]08-15-2023 Miscellaneous Notes* Telephone Encounter - Faye Lewis LPN - 04/04/2023 1:36 PM EDT CHICA SHAH Juarez: [id number] - [place] - Rx #: [id number] help? Call us at Outcome Approvedtoday Approved. This drug has been approved. Approved quantity: 2 units per 28 day(s). The drug has been approved from 03/21/2023 to 04/03/2024. Please call the pharmacy to process your prescription claim.Generic or biosimilar substitution may be required when available and preferred on the formulary. Drug Trulicity 4.5MG/0.5ML pen-injectors Form Shannon BROOKS Electronic Prior Authorization Form ([employer]) 2017 [facility] Original Claim Info 75 [place] RQRD. CALL plan LIMITATIONS EXCEEDEDTRANSMISSION FEE UP TO $0.31 MAY [id number]: Pharmacy notified. * Telephone Encounter - Faye Lewis LPN - 04/04/2023 1:31 PM EDT CHICA SHAH (Juarez: [id number]) - [id number] Trulicity 4.5MG/0.5ML pen-injectors Status: ALEX Request Created: April 04, 2023 Sent: April 04, 2023 documented in this encounterMet[facility]08-15-2023 Instructions* Patient Instructions* Cecilia Barry APRN.CNP - 04/04/2023 8:48 AM EDT Let me know in two weeks if your pain has not improved Recommend TENS unit (follow directions on packaging) documented in this encounterMet[facility]08-15-2023 History of Present illness Narrative* Cecilia Barry APRN.CNP - 04/04/2023 8:38 AM EDT CC: Patient presents with: neck and back pain: Also c/o right flank pain HPI Chica Shah is a 57 year old female who presents today for above. Worsening of chronic neck and back pain x 2 weeks. No injury or strenuous activities however she was traveling by car for hours. Neck pain is located on the sides and tops of her shoulder blades. Described as constant numb/burning sensation. Back pain is across the low back, worse on the right. Pain is aggravated by bending and twisting. Alleviated by massage, meloxicam, muscle relaxant and rest.Denies numbness, tingling, weakness in the extremities, bowel/bladder dysfunction, saddle anesthesia. She was going to pain management, stopped about one year ago. She is under evaluation by neurology for syncopal episodes. Tilt table testing ordered, she still needs to schedule. She had blood work last month that showed significant B12 and Vitamin D deficiency, advised to follow-up with PCP for treatment which she did not do. Reports malaise, fatigue, body aches. REVIEW OF SYSTEMS GENERAL: Negative for significant weight loss, fever, chills, night sweats RESPIRATORY: Negative for cough, wheezing and shortness of breath CARDIOVASCULAR: Negative for chest pain, leg swelling and palpitations : Negative for dysuria, frequency, hematuria, and hesitancy PAST MEDICAL HISTORY Diagnosis Date COVID-19 virus infection 06/12/2020 Diabetes mellitus type 2 in obese (HCC) 06/01/2011 Displaced fracture of base of fifth metacarpal bone of right hand with routine healing 02/11/2016 DJD (degenerative joint disease) left knee, hips Dysmetabolic syndrome X 03/14/2008 impaired fasting glucose Extensor intersection syndrome 12/30/2013 Fatty liver 07/20/2011 VIRGEN Fibromyalgia 06/03/2014 Gastric bypass status for obesity 07/2011 Hot flashes due to surgical menopause 11/17/2010 Hyperlipidemia 07/20/2011 Hypothyroidism Knee pain 12/06/2010 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 05/19/2015 Unspecified essential hypertension Urine, incontinence, stress female 12/02/2011 Vitamin D deficiency PAST SURGICAL HISTORY Procedure Laterality Date BUNIONECTOMY, LAPIDUS-TYPE Right 09/16/2022 Dr. Santizo DELIVERY ONLY 08/21/2000 , low transverse COLONOSCOPY - DIAGNOSTIC 10/29/2020 EGD 10/29/2020 GASTRIC BYPASS, SHASHA-EN-Y 08/16/2011 laparoscopic, [facility] HYSTERECTOMY HX 08/21/2007 Menorrhagia, Vaginal hysterectomy LAPAROSCOPIC CHOLECYSTECTOMY 12/02/2020 ROTATOR CUFF REPAIR 06/10/2014 Dr. Hansen, Right shoulder ROTATOR CUFF REPAIR 09/09/2014 Redo, right shoulder. SALPINGO-OOPHORECTOMY COMPL/PRTL UNI/BI SPX 08/21/2008 b/l due to pain TONSILLECTOMY HX 08/21/2005 ALLERGIES Celebrex [Celecoxib], Latex, and Nsaids (Non-Steroidal Anti- Inflammatory Drug) MEDICATIONS meloxicam (MOBIC) 7.5 mg tablet Take 7.5 mg by mouth once daily. blood sugar diagnostic (BLOOD GLUCOSE TEST) test strip Test blood sugar(s) 2 times daily. Dx: Type 2 DM - Uncontrolled E11.65 Insulin: No Lancets lancets Test 3 times weekly, Insulin Dep? No E11.9 DM 2 TRULICITY 3 mg/0.5 mL pen injector INJECT THE CONTENTS OF 1 PEN UNDER THE SKIN ONCE A WEEK. tiZANidine (ZANAFLEX) 4 mg tablet Take 1 tablet by mouth every 8 hours as needed (muscle spasms). levothyroxine (SYNTHROID) 88 mcg tablet Take 1 tablet by mouth daily before breakfast. DULoxetine (CYMBALTA) 60 mg capsule Take 1 capsule by mouth once daily. atorvastatin (LIPITOR) 20 mg tablet Take 1 tablet by mouth three times a week. metFORMIN (GLUCOPHAGE) 500 mg tablet Take 2 tablets by mouth twice daily with meals. . (Patient taking differently: Take 1,000 mg by mouth twice daily with meals. Per patient taking one tablet once or twice a week 04/04/2023) gabapentin (NEURONTIN) 300 mg capsule One capsule in AM. Two capsules at bedtime. nystatin-triamcinolone (MYCOLOG) ointment Apply sparingly to skin area with rash twice daily as needed. omeprazole (PRILOSEC) 40 mg capsule Take 1 capsule by mouth once daily. diclofenac sodium (VOLTAREN) 1 % topical gel Apply 2 g to affected area four times daily as needed (pain.). diphenhydramine HCl (BENADRYL ALLERGY ORAL) Take 2 capsules by mouth daily at bedtime. Biotin 1 mg tab Take 1 tablet by mouth once daily. FAMILY HISTORY Adopted: Yes Problem Relation Age of Onset Diabetes Mother Cancer Mother Stroke Mother Diabetes Father at age 46 Diabetes Sister Diabetes Sister Hypertension Sister Hypertension Sister Social History Tobacco Use Smoking status: Never Passive exposure: Current Smokeless tobacco: Never Vaping Use Vaping Use: Never used Substance Use Topics Alcohol use: No Drug use: No BP 148/100 Pulse 87 Resp 14 Wt 73.9 kg (163 lb) LMP 11/21/2007 BMI 29.81 kg/m Physical Exam Constitutional: Appearance: She is not ill-appearing. Cardiovascular: Rate and Rhythm: Normal rate and regular rhythm. Heart sounds: Heart sounds not distant. No murmur heard. Pulmonary: Effort: Pulmonary effort is normal. Breath sounds: Normal breath sounds. No wheezing, rhonchi or rales. Musculoskeletal: Cervical back: Pain with movement and muscular tenderness present. No spinous process tenderness. Thoracic back: Normal. Lumbar back: Normal range of motion. Comments: Lower Back: Normal to inspection. No spinal tenderness. Paraspinal muscles tender with palpation. Full ROM but painful. Neurological: Mental Status: She is alert. DATA REVIEWED: Most recent labs Component Latest Ref Rng & Units 03/10/2023 Vitamin B12 232 - 1,245 pg/mL <150 (L) MMA 79 - 376 nmol/L 844 (H) Copper 80 - 155 ug/dL 109 Vitamin B1 (TDP), Whole Blood 84.3 - 213.3 nmol/L 104.9 Vitamin B6, Plasma 20.0 - 125.0 nmol/L 28.0 Vitamin D 25 Hydroxy 31.0 - 80.0 ng/mL 19.3 (L) ASSESSMENT/PLAN: 1. Cervicalgia - ICD9: 723.1, ICD10: M54.2 (primary diagnosis) Worsening of chronic pain. No alarm symptoms or exam findings. Imaging not indicated at this time - Increase meloxicam to 15 mg daily - continue with massage therapy - Increase GABAPENTIN 300 MG CAPSULE to 600 mg BID - follow-up in 3 weeks as scheduled or sooner for any worsening symptoms 2. Chronic low back pain, unspecified back pain laterality, unspecified whether sciatica present - ICD9: 724.2, 338.29, ICD10: M54.50, G89.29 As above - GABAPENTIN 300 MG CAPSULE 3. Vitamin B12 deficiency - ICD9: 266.2, ICD10: E53.8 History of gastric bypass, will treat with B12 injections - VITAMIN B12 BLOOD in 3 months - CYANOCOBALAMIN (VIT B-12) 1,000 MCG/ML INJECTION SOLUTION once a week x 4 weeks, then once a month. Patient prefers to do injections herself after today, will send to her pharmacy 4. Vitamin D deficiency - ICD9: 268.9, ICD10: E55.9 Start Vitamin D 50,000 units weekly - VITAMIN D 25 HYDROXY in 3 months 5. Fibromyalgia - ICD9: 729.1, ICD10: M79.7 Refilled meds - DULOXETINE 60 MG CAPSULE,DELAYED RELEASE - TIZANIDINE 4 MG TABLET - GABAPENTIN 300 MG CAPSULE Prescription instructions reviewed with patient as applicable. Potential red flag symptoms discussed with the patient. Reviewed appropriate action plan to take if red flag symptoms occur. Patient agreeable to treatment plan. Cecilia Barry APRN.CNP [facility] Miscellaneous Notes* Telephone Encounter - Ijeoma Mendez - 02/15/2023 3:00 PM EDT Patient has been identified by name and date of : Yes Requested Prescriptions Pending Prescriptions Disp Refills blood sugar diagnostic (BLOOD GLUCOSE TEST) test strip 100 Strip 5 Sig: Test blood sugar(s) 2 times daily. Dx: Type 2 DM - Uncontrolled E11.65 Insulin: No Lancets lancets 200 Each 4 Sig: Test 3 times weekly, Insulin Dep? No E11.9 DM 2 RX INSTRUCTIONS: Patient aware RX will be sent to pharmacy. No need to notify patient. Ijeoma Mendez documented in this encounter[facility]23 Miscellaneous Notes* Telephone Encounter - Brooke Ramos RN - 02/10/2023 8:54 AM EDT Patient transferred to [facility] to schedule appt with neurology. documented in this [facility]23 Instructions* Patient Instructions* Jabari Murillo MD - 11/23/2022 9:01 AM EDT STOP NORTRIPTYLINE. documented in this [facility]04-05-2023 History of Present illness Narrative* Jabari Murillo MD - 11/23/2022 8:41 AM EDT This note was created using [employer]. Subjective Chica Shah is a 57 year old female. She gave a history of intermittent syncope for the past year. She had syncope again twice one week ago, at night, when getting up to let her cat out. This time she bruised her left eye. She did not go to the ER. She regained consciousness without confusion. She noted some urine incontinence. She was not aware of how long she loses consciousness. Review of Systems Constitutional: Negative for fatigue and fever. HENT: Negative for mouth sores. Eyes: Negative for pain and visual disturbance. Respiratory: Negative for shortness of breath. Cardiovascular: Negative for chest pain and palpitations. Gastrointestinal: Negative for diarrhea, nausea and vomiting. Neurological: Positive for syncope. Negative for dizziness, seizures, speech difficulty, light-headedness and headaches. Psychiatric/Behavioral: Negative for confusion. ACTIVE PROBLEM LIST Hypothyroidism PAIN BACK, LOW Vitamin D Deficiency Diabetes mellitus type 2 in obese (HCC) Hyperlipidemia Fatty Liver Gastric Bypass Status for Obesity Urine, Incontinence, Stress Female Hot Flashes Due to Surgical Menopause Fibromyalgia Cervicalgia Insomnia Due to Medical Condition Muscular Weakness Falls Frequently Obesity, Class I, Bmi 30-34.9 Intertrigo Social History Tobacco Use Smoking status: Never Smokeless tobacco: Never Vaping Use Vaping Use: Never used Substance Use Topics Alcohol use: No Drug use: No Current Outpatient Medications Medication Sig TRULICITY 3 mg/0.5 mL pen injector INJECT THE CONTENTS OF 1 PEN UNDER THE SKIN ONCE A WEEK. levothyroxine (SYNTHROID) 88 mcg tablet Take 1 tablet by mouth daily before breakfast. DULoxetine (CYMBALTA) 60 mg capsule Take 1 capsule by mouth once daily. atorvastatin (LIPITOR) 20 mg tablet Take 1 tablet by mouth three times a week. metFORMIN (GLUCOPHAGE) 500 mg tablet Take 2 tablets by mouth twice daily with meals. . gabapentin (NEURONTIN) 300 mg capsule One capsule in AM. Two capsules at bedtime. nortriptyline (PAMELOR) 50 mg capsule Take 1 capsule by mouth daily at bedtime. nystatin-triamcinolone (MYCOLOG) ointment Apply sparingly to skin area with rash twice daily as needed. omeprazole (PRILOSEC) 40 mg capsule Take 1 capsule by mouth once daily. tiZANidine (ZANAFLEX) 4 mg tablet Take 1 tablet by mouth every 8 hours as needed (muscle spasms). blood sugar diagnostic (BLOOD GLUCOSE TEST) test strip Test blood sugar(s) 2 times daily. Dx: Type 2 DM - Uncontrolled E11.65 Insulin: No Lancets lancets Test 3 times weekly, Insulin Dep? No E11.9 DM 2 diclofenac sodium (VOLTAREN) 1 % topical gel Apply 2 g to affected area four times daily as needed (pain.). diphenhydramine HCl (BENADRYL ALLERGY ORAL) Take 2 capsules by mouth daily at bedtime. Biotin 1 mg tab Take 1 tablet by mouth once daily. No current facility-administered medications for this visit. Objective BP 120/82 (BP Site: Right Arm, BP Position: Sitting, BP Cuff Size: Large Adult) Pulse 100 Resp 16 Wt 77.6 kg (171 lb) LMP 11/21/2007 BMI 31.28 kg/m Physical Exam Constitutional: General: She is not in acute distress. Appearance: She is not ill-appearing. HENT: Head: Normocephalic. Eyes: Extraocular Movements: Extraocular movements intact. Pupils: Pupils are equal, round, and reactive to light. Comments: Resolving periorbital ecchymosis. Cardiovascular: Rate and Rhythm: Regular rhythm. Tachycardia present. Heart sounds: No murmur heard. No gallop. Pulmonary: Breath sounds: Normal breath sounds. Musculoskeletal: Cervical back: Neck supple. Neurological: General: No focal deficit present. Mental Status: She is alert and oriented to person, place, and time. Cranial Nerves: No cranial nerve deficit. Motor: No weakness. Gait: Gait normal. Depression Screening 10/14/2019 05/28/2021 06/13/2022 11/23/2022 PHQ-2 Score 3 0 0 0 PHQ-9 Score 14 - - - Depression screening tool completed and reviewed. Based on score and interview, patient is at risk for depression. Screening tool discussed with patient, and I recommended continuing current plan of care. Assessment and Plan Zio non contributory. 1. Syncope, unspecified syncope type - ICD9: 780.2, ICD10: R55 (primary diagnosis) Recurrent for one year. - Discontinue NORTRIPTYLINE. Medication side effects, cumulative medication toxicities possible. - EEG W/O VID TECH EA INCR 12-26 HR CONT R-T MNTR - If EEG +, neurology. If EEG negative cardiology referral. 2. Fibromyalgia - ICD9: 729.1, ICD10: M79.7 Refilled. - TIZANIDINE 4 MG TABLET 3. Cervicalgia - ICD9: 723.1, ICD10: M54.2 Discontinue NORTRIPTYLINE. Continue other medications. 4. Chronic low back pain, unspecified back pain laterality, unspecified whether sciatica present - ICD9: 724.2, 338.29, ICD10: M54.50, G89.29 See above. 5. Insomnia due to medical condition - ICD9: 327.01, ICD10: G47.01 See above. Jabari Murillo MD documented in this [facility]31-2023 Miscellaneous Notes* Telephone Encounter - Ole Michel Ma - 11/18/2022 2:35 PM EDT Patient notified, verbalized understanding. * Telephone Encounter - Cecilia Barry APRN.CNP - 11/18/2022 2:25 PM EDT Only the preliminary results are back on the monitor. Nothing to necessarily explain the episodes of passing out. If it occurs again she needs to go to the ER, sometimes it is easier to determine thecause if worked up during the time of an episode or right after Cecilia Barry APRN.CNP * Telephone Encounter - Rosalia Mishra LPN - 11/18/2022 2:20 PM EDT Patient calling to check on message below. States that she passed out again last night. It is unusual for it to happen this close together. Please advise. * Telephone Encounter - Amparo Yanez LPN - 11/17/2022 10:56 AM EDT Patient said her heart monitor had fallen off on 11/04/2022 and she mailed it back on 11/05/2022. Patient said she had episodes of syncope on 11/09 and 11/16 during the night both times. On 11/16 she had gotten up to put the cat out to go to the bathroom and had fall in kitchen and hit her left eye, shedid not know how long she was out, was not at home. Patient has follow up appt scheduled on11/23/2022 with PCP, she plans to keep that appt. Patient was asking if heart monitor results were back? Please advise documented in this [facility] History of Present illness Narrative* Azalia Haas LPN - 10/24/2022 3:49 PM EST EVENT MONITOR DISPOSABLE PATCH INSTRUCTIONS Patient Name: Chica Shah Clinic Number: [id number] Skin prepped and cleansed with alcohol Patch secured to prepped area Monitor Activated Serial #: [id number] Patient Instructed: Prescribed order timeframe Bathing guidelines Usage of event button and diary documentation Return of monitor at the end of prescribed order Call with problems [phone] or [phone] ext. [phone] Patient expresses a good understanding of instructions Azalia Haas LPN * Jabari Murillo MD - 10/24/2022 1:55 PM EST This note was created using [employer]. Subjective Chica Shah is a 57 year old female. She complained of intermittent palpitations, mostly at night. On further discussion, she's had intermittent syncope at least 5 times last year with no pattern, no injury, but with fall and LOC for several minutes. Syncope only occurs at night, possibly 45 minutes after her evening medications. She did not discuss this before because she was eager last yearto travel. Review of Systems Constitutional: Negative for unexpected weight change. HENT: Negative for trouble swallowing. Eyes: Negative for visual disturbance. Respiratory: Negative for shortness of breath. Cardiovascular: Positive for palpitations. Negative for chest pain and leg swelling. Gastrointestinal: Negative for diarrhea, nausea and vomiting. Genitourinary: Negative. Neurological: Positive for dizziness and light-headedness. Negative for facial asymmetry, speech difficulty, weakness, numbness and headaches. Psychiatric/Behavioral: Negative for confusion. ACTIVE PROBLEM LIST Hypothyroidism PAIN BACK, LOW Vitamin D Deficiency Diabetes mellitus type 2 in obese (HCC) Hyperlipidemia Fatty Liver Gastric Bypass Status for Obesity Urine, Incontinence, Stress Female Hot Flashes Due to Surgical Menopause Fibromyalgia Cervicalgia Insomnia Due to Medical Condition Muscular Weakness Falls Frequently Obesity, Class I, Bmi 30-34.9 Social History Tobacco Use Smoking status: Never Smokeless tobacco: Never Vaping Use Vaping Use: Never used Substance Use Topics Alcohol use: No Drug use: No Current Outpatient Medications Medication Sig omeprazole (PRILOSEC) 40 mg capsule Take 1 capsule by mouth once daily. dulaglutide (TRULICITY) 3 mg/0.5 mL pen injector Inject 3 mg subcutaneously one time a week. tiZANidine (ZANAFLEX) 4 mg tablet Take 1 tablet by mouth every 8 hours as needed (muscle spasms). levothyroxine (SYNTHROID) 88 mcg tablet Take 1 tablet by mouth daily before breakfast. DULoxetine (CYMBALTA) 60 mg capsule Take 1 capsule by mouth once daily. atorvastatin (LIPITOR) 20 mg tablet Take 1 tablet by mouth three times a week. metFORMIN (GLUCOPHAGE) 500 mg tablet Take 2 tablets by mouth twice daily with meals. . gabapentin (NEURONTIN) 300 mg capsule One capsule in AM. Two capsules at bedtime. nortriptyline (PAMELOR) 50 mg capsule Take 1 capsule by mouth daily at bedtime. blood sugar diagnostic (BLOOD GLUCOSE TEST) test strip Test blood sugar(s) 2 times daily. Dx: Type 2 DM - Uncontrolled E11.65 Insulin: No Lancets lancets Test 3 times weekly, Insulin Dep? No E11.9 DM 2 nystatin-triamcinolone (MYCOLOG) ointment Apply sparingly to skin area with rash twice daily as needed. diclofenac sodium (VOLTAREN) 1 % topical gel Apply 2 g to affected area four times daily as needed (pain.). diphenhydramine HCl (BENADRYL ALLERGY ORAL) Take 2 capsules by mouth daily at bedtime. Biotin 1 mg tab Take 1 tablet by mouth once daily. No current facility-administered medications for this visit. Objective BP 130/82 (BP Site: Left Arm, BP Position: Sitting, BP Cuff Size: Large Adult) Pulse 88 Resp 16 Wt 77.6 kg (171 lb) LMP 11/21/2007 BMI 31.28 kg/m Physical Exam Constitutional: General: She is not in acute distress. Appearance: She is not ill-appearing. HENT: Head: Atraumatic. Cardiovascular: Rate and Rhythm: Normal rate and regular rhythm. Heart sounds: No murmur heard. No gallop. Pulmonary: Effort: Pulmonary effort is normal. Breath sounds: Normal breath sounds. Musculoskeletal: Right lower leg: No edema. Left lower leg: No edema. Neurological: General: No focal deficit present. Mental Status: She is alert and oriented to person, place, and time. Cranial Nerves: No cranial nerve deficit. Gait: Gait normal. Feet:Shoes and socks removed, No deformities, ulcers, calluses, normal distal pulses, sensitive to 10 gm monofilament, and bunionectomy site, right foot healing well. EKG RESULTS: normal EKG, normal sinus rhythm Assessment and Plan 1. Syncope, unspecified syncope type - ICD9: 780.2, ICD10: R55 (primary diagnosis) - ECG COMPLETE - CBC - OUTSIDE VENDOR CARDIAC OUTPATIENT EXTENDED RHYTHM RECORDING (WITHOUT TELEMETRY) - She may need cardiology. Further recommendations will depend on results. 2. Hypothyroidism, unspecified type - ICD9: 244.9, ICD10: E03.9 - continue current dose of Synthroid - LEVOTHYROXINE 88 MCG TABLET - TSH BLD 3. Fibromyalgia - ICD9: 729.1, ICD10: M79.7 Stable. - DULOXETINE 60 MG CAPSULE,DELAYED RELEASE - GABAPENTIN 300 MG CAPSULE - NORTRIPTYLINE 50 MG CAPSULE 4. Hyperlipidemia, unspecified hyperlipidemia type - ICD9: 272.4, ICD10: E78.5 - to be determined upon return of lab results - ATORVASTATIN 20 MG TABLET 5. Diabetes mellitus type 2 in obese (HCC) - ICD9: 250.00, 278.00, ICD10: E11.69, E66.9 - Controlled - Continue current medications - METFORMIN 500 MG TABLET - BASIC METABOLIC PNL - HGB A1C - ALBUMIN/CREAT RATIO RND UR - LDL CHOLESTEROL DIR 6. Cervicalgia - ICD9: 723.1, ICD10: M54.2 Controlled. - GABAPENTIN 300 MG CAPSULE - NORTRIPTYLINE 50 MG CAPSULE 7. Chronic low back pain, unspecified back pain laterality, unspecified whether sciatica present - ICD9: 724.2, 338.29, ICD10: M54.50, G89.29 Stable. - GABAPENTIN 300 MG CAPSULE - NORTRIPTYLINE 50 MG CAPSULE 8. Insomnia due to medical condition - ICD9: 327.01, ICD10: G47.01 Controlled. - NORTRIPTYLINE 50 MG CAPSULE 9. Intertrigo - ICD9: 695.89, ICD10: L30.4 Refilled. - NYSTATIN-TRIAMCINOLONE 100,000 UNIT/GRAM-0.1 % TOPICAL OINTMENT 10. Palpitations - ICD9: 785.1, ICD10: R00.2 See above. - ECG COMPLETE - OUTSIDE VENDOR CARDIAC OUTPATIENT EXTENDED RHYTHM RECORDING (WITHOUT TELEMETRY) Jabari Murillo MD documented in this encounter[facility]03-[facility]-2023 Instructions* Patient Instructions* Jabari Murillo MD - 10/24/2022 2:12 PM EST BLOOD WORK TODAY. documented in this encounterMet[facility]02-09-2023 Miscellaneous Notes* Telephone Encounter - Faye Lewis LPN - 09/29/2022 3:02 PM EST Approvedtoday Approved. This drug has been approved. Approved quantity: 2 units per 28 day(s). The drug has been approved from 09/15/2022 to 09/29/2023. Please call the pharmacy to process your prescription claim.Generic or biosimilar substitution may be required when available and preferred on the formular Pharmacy notified. * Telephone Encounter - Faye Lewis LPN - 09/29/2022 2:52 PM EST CHICA SHAH (Juarez: [id number]) - [id number] Trulicity 3MG/0.5ML pen-injectors Status: PA Request Created: September 29, 2022 Sent: September 29, 2022 documented in this encounter[facility]27-[facility]23 Hospital Discharge instructions Patient Education 09/16/2022 13:38:32 Bunion Surgery, Care After Bunion Surgery, Care After This sheet gives you information about how to care for yourself after your procedure. Your health care provider may also give you more specific instructions. If you have problems or questions, contact your health care provider. What can I expect after the procedure? After the procedure, it is common to have: Pain. Swelling. A small amount of fluid coming from your incision. Follow these instructions at home: If you have a post-operative brace, boot, or shoe: Wear the post-op (post-operative) brace, boot, or shoe as told by your health care provider. Removeit only as told by your health care provider. Loosen the brace, boot, or shoe if your toes tingle, become numb, or turn cold and blue. Keep the brace, boot, or shoe clean and dry. If you have a cast: Do not stick anything inside the cast to scratch your skin. Doing that increases your risk of infection. Check the skin around the cast every day. Tell your health care provider about any concerns. You may put lotion on dry skin around the edges of the cast. Do not put lotion on the skin underneath the cast. Keep the cast clean and dry. Bathing Do not take baths, swim, or use a hot tub until your health care provider approves. Ask your healthcare provider if you may take showers. If your brace, boot, shoe, or cast is not waterproof: ?Do not let it get wet. ?Cover it with a watertight covering when you take a bath or a shower. Keep your bandage (dressing) dry until your health care provider says it can be removed. Incision care The dressing holds your toe in the correct position. Do not change the dressing until your health care provider approves. Follow instructions from your health care provider about how to take care of your incision. Make sure you: ?Wash your hands with soap and water before you change your dressing. If soap and water are not available, use hand last chalker. ?Change your dressing as told by your health care provider. ?Leave stitches (sutures), skin glue, or adhesive strips in place. These skin closures may need to stay in place for 2 weeks or longer. If adhesive strip edges start to loosen and curl up, you may trim the loose edges. Do not remove adhesive strips completely unless your health care provider tells you to do that. Check your incision area every day for signs of infection. Check for: ?More redness, swelling, or pain. ?Blood or more fluid. ?Warmth. ?Pus or a bad smell. Managing pain, stiffness, and swelling If directed, put ice on the affected area. ?If you have a removable brace, boot, or shoe, remove it as told by your health care provider. ?Put ice in a plastic bag. ?Place a towel between your skin and the bag or between your cast and the bag. ?Leave the ice on for 20 minutes, 2 3 times a day. Move your toes often to avoid stiffness and to lessen swelling. Raise (elevate) your foot above the level of your heart while you are sitting or lying down. Driving Do not drive for 24 hours if you were given a medicine to help you relax (sedative) during your procedure. Do not drive or use heavy machinery while taking prescription pain medicine. Ask your health care provider when it is safe to drive if you have a brace, boot, shoe, or cast on your foot. Activity Return to your normal activities as told by your health care provider. Ask your health care provider what activities are safe for you. If physical therapy was prescribed, do exercises as told by your health care provider. Safety Do not use the affected leg to support (bear) your body weight until your health care provider saysthat you can. Follow weight-bearing restrictions as told. Use crutches, a cane, or a walker as toldby your health care provider. General instructions Do not use any products that contain nicotine or tobacco, such as cigarettes and e-cigarettes. These can delay bone healing. If you need help quitting, ask your health care provider. Take ncko-yak-brzavwg and prescription medicines only as told by your health care provider. If you are taking prescription pain medicine, take actions to prevent or treat constipation. Your health care provider may recommend that you: ?Drink enough fluid to keep your urine pale yellow. ?Eat foods that are high in fiber, such as fresh fruits and vegetables, whole grains, and beans. ?Limit foods that are high in fat and processed sugars, such as fried or sweet foods. ?Take an xevp-aph-auzzelz or prescription medicine for constipation. Do not wear high heels or tight-fitting shoes, even after you heal. Keep all follow-up visits as told by your health care provider. This is important. Contact a health care provider if: You have more redness, swelling, or pain around your incision. You have more fluid or blood coming from the incision. Your incision feels warm to the touch. There is pus or a bad smell coming from your incision. You have a fever or chills. Your dressing gets wet or it falls off. You have swelling in your lower leg. You have numbness or stiffness in your toes. Get help right away if: You have a rash. You have difficulty breathing. Summary Do not use the affected leg to support (bear) your body weight until your health care provider saysthat you can. Follow weight-bearing restrictions as told. Use crutches, a cane, or a walker as toldby your health care provider. If directed, put ice on the affected area. Leave the ice on for 20 minutes, 2 3 times a day. Do not drive or use heavy machinery while taking prescription pain medicine. This information is not intended to replace advice given to you by your health care provider. Make sure you discuss any questions you have with your health care provider. Document Released: 02/24/2006 Document Revised: 07/20/2018 Document Reviewed: 05/14/2018 [employer] Patient Education 2020 [employer]. 09/16/2022 13:38:06 Moderate Conscious Sedation, Adult, Care After Moderate Conscious Sedation, Adult, Care After These instructions provide you with information about caring for yourself after your procedure. Your health care provider may also give you more specific instructions. Your treatment has been plannedaccording to current medical practices, but problems sometimes occur. Call your health care provider if you have any problems or questions after your procedure. What can I expect after the procedure? After your procedure, it is common: To feel sleepy for several hours. To feel clumsy and have poor balance for several hours. To have poor judgment for several hours. To vomit if you eat too soon. Follow these instructions at home: For at least 24 hours after the procedure: Do not: ?Participate in activities where you could fall or become injured. ?Drive. ?Use heavy machinery. ?Drink alcohol. ?Take sleeping pills or medicines that cause drowsiness. ?Make important decisions or sign legal documents. ?Take care of children on your own. Rest. Eating and drinking Follow the diet recommended by your health care provider. If you vomit: ?Drink water, juice, or soup when you can drink without vomiting. ?Make sure you have little or no nausea before eating solid foods. General instructions Have a responsible adult stay with you until you are awake and alert. Take zvkf-giy-vrcikry and prescription medicines only as told by your health care provider. If you smoke, do not smoke without supervision. Keep all follow-up visits as told by your health care provider. This is important. Contact a health care provider if: You keep feeling nauseous or you keep vomiting. You feel light-headed. You develop a rash. You have a fever. Get help right away if: You have trouble breathing. This information is not intended to replace advice given to you by your health care provider. Make sure you discuss any questions you have with your health care provider. Document Released: 05/28/2014 Document Revised: 07/20/2018 Document Reviewed: 11/26/2016 [employer] Patient Education 2020 [employer] Follow Up Care 08/30/2022 09:19:02 With:AUDELIA SANTIZO DPM, Surgery Address: [address] [place] [address], [address] [facility] [place] [address]- When: Unknown Comments:Follow up in office 09/22/2022, @ 9:20 [facility] 01-27-2023 Nurse Progress note Going home instructions reviewed with teachback. Pt ambulated to with walker, dressed per self and discharged to home with . Digitally Signed by Maile Knott RN on 09/16/2022 02:14 PM [facility]01-27-2023 Evaluation + Plan noteExtracted from: Title:Clinical Document Author:AUDELIA SANTIZO PM Date:09/16/22 [place] ADMISSION HISTORY AN D PHYSICIAL CHIEF COMPLAINT: HISTORY OF PRESENT ILLNESS: Pt had a fall and now has pain and swelling in ipsilateral left foot REVIEW OF SYSTEMS: ACTIVE PROBLEMS: (5) Arthritis (8114340) Cirrhosis of liver (64956831) Diabetes (528820254) GERD (gastroesophageal reflux disease) (654460782) Hypothyroidism (22646719) MEDICATIONS: Active Inpt Meds: cefOXitin Start: 09/16/22 10:59:00 EST, Dose = 1 gram(s), IV Piggyback, PREOP pharm, Rate: 200 mL/hr, Infuse over: 30 minute(s), 0, 09/16/22 10:59:00 EST Active PRN Meds: None One Time Meds: None Active IV Meds: Lactated Ringers Infusion 1,000 mL (LR 1,000 mL) Start: 09/16/22 10:59:00 EST, Rate: 125 mL/hr, 09/16/22 10:59:00 EST ALLERGIES: (1) No Known Medication Allergies FAMILY HISTORY: SOCIAL HISTORY: PHYSICAL EXAM: VITALS: NhkqpvLmueILNdvauMFBzA4XBG9DnpbUl(kg) 09/16 11:0936.3--476525--12/27 78.8 24 Hr Tmax: 36.3 at 09/16 11:09 36 Hr Tmax: 36.3 at 09/16 11:09 Vital Signs are the last 5 in the past 48 hours. Weights display the last 5 within 7 days. Initial Wt: 09/16 78.8 kg 173 lb Current Wt: 09/16 78.8 kg 173 lb GENERAL: HEENT: CARDIOVASCULAR: RESPIRATORY: ABDOMEN: EXREMETIES: right foot bunion, left foot pain and swelling with substantial bruising over 2nd met shaft NEUROLOGICAL: PSYCHIATRIC: LABS: 36hr Labs 09/16 1123 Blood Glucose, Tytgtxknz06 Blood Glucose, Jqeabkjsr71 DIAGNOSTICS: IMPRESSION: PLAN:in addition to normal H and P/surgical foot, we will order plain films on left foot in case there is dislocation/fracture [facility] 01-27-2023 Summary of episode note Discharge Instructions Thank you for allowing [facility] to assist you with your healthcare needs. The following is importantdischarge information regarding your hospital visit. Your Care Team JABARI MURILLO MD What to do next Follow Up Appointments Follow Up with AUDELIA SANTIZO DPM, Surgery When Why: Follow up in office 09/22/2022, @ 9:20 Where: [address], [address] [facility] [place] [address]- The Following Activity and Diet Have Been Ordered for You Discharge Activity - Ordered -- Other, Follow the post-operative/post-procedure activity instructions provided by your physician's office., 09/16/22 13:25:00 EST No qualifying data available. The Following Equipment Has Been Ordered for You Discharge Home Equipment Discharge Wound Care - Ordered -- Follow the post-operative/post-procedure wound care instructions provided by your physician's office., 09/16/22 13:25:00 EST The Following Treatments Have Been Ordered for You Discharge Labs No qualifying data available. Discharge Radiology No qualifying data available. Other Therapies No qualifying data available. Post Acute Orders No qualifying data available. Someone Will Contact You Regarding These Home Health Referrals No home referrals have been ordered for you. No one will call you. Allergies No Known Medication Allergies Medications Please ask your primary doctor or pharmacist before taking any other medication not listed, including over the counter drugs, herbal medications, vitamins and or supplements as they may interact withyour home medications. What How Much When Instructions Last Dose Unchanged atorvastatin (atorvastatin 20 mg oral tablet) TAKE 1 TABLET BY MOUTH THREE TIMES WEEKLY Unchanged dulaglutide (Trulicity Pen 3 mg/ 0.5 mL subcutaneous solution) Inject 3 mg subcutaneously one time a week. Unchanged DULoxetine (DULoxetine 60 mg oral delayed release capsule) TAKE 1 CAPSULE BY MOUTH ONCE DAILY Unchanged gabapentin (gabapentin 300 mg oral capsule) 1 cap by mouth Two (2) times a day Unchanged levothyroxine (levothyroxine 88 mcg (0.088 mg) oral tablet) Take 1 tablet by mouth daily before breakfast. Unchanged metFORMIN (metFORMIN 500 mg oral tablet (IR)) TAKE 2 TABLETS BY MOUTH TWICE DAILY WITH MEALS Unchanged nortriptyline (nortriptyline 50 mg oral capsule) TAKE 1 CAPSULE BY MOUTH DAILY AT BEDTIME Unchanged omeprazole (omeprazole 40 mg oral delayed release capsule) TAKE 1 CAPSULE BY MOUTH EVERY DAY Unchanged tiZANidine (tiZANidine 4 mg oral tablet) Take 1 tablet by mouth every 8 hours as needed (muscle spasms). Please take this list to your next doctor s visit. Bring all medications you take, including over the counter medications, herbals and other supplements with you to your doctor s visit. Patients and families are reminded to discard old lists and to update any records with all medication providers or retail pharmacies. Education Materials Bunion Surgery, Care After This sheet gives you information about how to care for yourself after your procedure. Your health care provider may also give you more specific instructions. If you have problems or questions, contact your health care provider. What can I expect after the procedure? After the procedure, it is common to have: Pain. Swelling. A small amount of fluid coming from your incision. Follow these instructions at home: If you have a post-operative brace, boot, or shoe: Wear the post-op (post-operative) brace, boot, or shoe as told by your health care provider. Removeit only as told by your health care provider. Loosen the brace, boot, or shoe if your toes tingle, become numb, or turn cold and blue. Keep the brace, boot, or shoe clean and dry. If you have a cast: Do not stick anything inside the cast to scratch your skin. Doing that increases your risk of infection. Check the skin around the cast every day. Tell your health care provider about any concerns. You may put lotion on dry skin around the edges of the cast. Do not put lotion on the skin underneath the cast. Keep the cast clean and dry. Bathing Do not take baths, swim, or use a hot tub until your health care provider approves. Ask your healthcare provider if you may take showers. If your brace, boot, shoe, or cast is not waterproof: ? Do not let it get wet. ? Cover it with a watertight covering when you take a bath or a shower. Keep your bandage (dressing) dry until your health care provider says it can be removed. Incision care The dressing holds your toe in the correct position. Do not change the dressing until your health care provider approves. Follow instructions from your health care provider about how to take care of your incision. Make sure you: ? Wash your hands with soap and water before you change your dressing. If soap and water are not available, use hand last chalker. ? Change your dressing as told by your health care provider. ? Leave stitches (sutures), skin glue, or adhesive strips in place. These skin closures may need to stay in place for 2 weeks or longer. If adhesive strip edges start to loosen and curl up, you may trim the loose edges. Do not remove adhesive strips completely unless your health care provider tells you to do that. Check your incision area every day for signs of infection. Check for: ? More redness, swelling, or pain. ? Blood or more fluid. ? Warmth. ? Pus or a bad smell. Managing pain, stiffness, and swelling If directed, put ice on the affected area. ? If you have a removable brace, boot, or shoe, remove it as told by your health care provider. ? Put ice in a plastic bag. ? Place a towel between your skin and the bag or between your cast and the bag. ? Leave the ice on for 20 minutes, 2 3 times a day. Move your toes often to avoid stiffness and to lessen swelling. Raise (elevate) your foot above the level of your heart while you are sitting or lying down. Driving Do not drive for 24 hours if you were given a medicine to help you relax (sedative) during your procedure. Do not drive or use heavy machinery while taking prescription pain medicine. Ask your health care provider when it is safe to drive if you have a brace, boot, shoe, or cast on your foot. Activity Return to your normal activities as told by your health care provider. Ask your health care provider what activities are safe for you. If physical therapy was prescribed, do exercises as told by your health care provider. Safety Do not use the affected leg to support (bear) your body weight until your health care provider saysthat you can. Follow weight-bearing restrictions as told. Use crutches, a cane, or a walker as toldby your health care provider. General instructions Do not use any products that contain nicotine or tobacco, such as cigarettes and e-cigarettes. These can delay bone healing. If you need help quitting, ask your health care provider. Take nenc-cbg-pipxrrj and prescription medicines only as told by your health care provider. If you are taking prescription pain medicine, take actions to prevent or treat constipation. Your health care provider may recommend that you: ? Drink enough fluid to keep your urine pale yellow. ? Eat foods that are high in fiber, such as fresh fruits and vegetables, whole grains, and beans. ? Limit foods that are high in fat and processed sugars, such as fried or sweet foods. ? Take an iubn-wom-lgfktxt or prescription medicine for constipation. Do not wear high heels or tight-fitting shoes, even after you heal. Keep all follow-up visits as told by your health care provider. This is important. Contact a health care provider if: You have more redness, swelling, or pain around your incision. You have more fluid or blood coming from the incision. Your incision feels warm to the touch. There is pus or a bad smell coming from your incision. You have a fever or chills. Your dressing gets wet or it falls off. You have swelling in your lower leg. You have numbness or stiffness in your toes. Get help right away if: You have a rash. You have difficulty breathing. Summary Do not use the affected leg to support (bear) your body weight until your health care provider saysthat you can. Follow weight-bearing restrictions as told. Use crutches, a cane, or a walker as toldby your health care provider. If directed, put ice on the affected area. Leave the ice on for 20 minutes, 2 3 times a day. Do not drive or use heavy machinery while taking prescription pain medicine. This information is not intended to replace advice given to you by your health care provider. Make sure you discuss any questions you have with your health care provider. Document Released: 02/24/2006 Document Revised: 07/20/2018 Document Reviewed: 05/14/2018 [employer] Patient Education 2020 [employer] Moderate Conscious Sedation, Adult, Care After These instructions provide you with information about caring for yourself after your procedure. Your health care provider may also give you more specific instructions. Your treatment has been plannedaccording to current medical practices, but problems sometimes occur. Call your health care provider if you have any problems or questions after your procedure. What can I expect after the procedure? After your procedure, it is common: To feel sleepy for several hours. To feel clumsy and have poor balance for several hours. To have poor judgment for several hours. To vomit if you eat too soon. Follow these instructions at home: For at least 24 hours after the procedure: Do not: ? Participate in activities where you could fall or become injured. ? Drive. ? Use heavy machinery. ? Drink alcohol. ? Take sleeping pills or medicines that cause drowsiness. ? Make important decisions or sign legal documents. ? Take care of children on your own. Rest. Eating and drinking Follow the diet recommended by your health care provider. If you vomit: ? Drink water, juice, or soup when you can drink without vomiting. ? Make sure you have little or no nausea before eating solid foods. General instructions Have a responsible adult stay with you until you are awake and alert. Take nlrl-pmx-dqrggyt and prescription medicines only as told by your health care provider. If you smoke, do not smoke without supervision. Keep all follow-up visits as told by your health care provider. This is important. Contact a health care provider if: You keep feeling nauseous or you keep vomiting. You feel light-headed. You develop a rash. You have a fever. Get help right away if: You have trouble breathing. This information is not intended to replace advice given to you by your health care provider. Make sure you discuss any questions you have with your health care provider. Document Released: 05/28/2014 Document Revised: 07/20/2018 Document Reviewed: 11/26/2016 [employer] Patient Education 2020 [employer] Additional Information VACCINATE! IT SAVES LIVES! Members of the community who have not yet received the COVID-19 vaccine and would like to receive it can visit one of [facility] vaccine clinics. There are many vaccine clinic locations within the [facility]. For locations and available times, please visit [email or web address]/. It is important to note that some COVID mobile vaccine clinics are held outdoors and may be canceled in rainy or stormy conditions. To learn more about pediatric vaccinations (ages 5-11), we invite you to visit the [facility] webpage. [email or web address]/[email or web address] [email or web address].htmlTo learn more about the COVID-19 vaccine, we invite you to visit the [facility] website for a list of frequently asked questions. [email or web address] [facility] [employer] Patient Portal Access Instructions: Stay connected with your healthcare team and access your personal medical information anytime with the [facility] Patient Portal.If you would like a full copy of your medical records, please contact the [facility] Medical Records Department, Monday through Monday between 8a.m. and 4:30p.m. Please follow the directions below to access the portal: 1.Access the email account you provided upon registration to the [facility].2.Look for an invitation email from [facility].3.Open the email and access the invitation link: Accept Invitation to [facility]4.Fill in the required ingram to create your account. Sign into [email or web address] with your username and password that you created in the above steps to stay up to date. You can then view a summary of results, a summary of your visits, and the ability to download your summaries to your computer or send the information securely to a physician. Remember that your healthcare information is confidential, so carefully consider who you will allow to register on the [employer] [facility] Patient Portal for access to your information. You can also access the [employer] Patient Portal on the [employer]. Simply click on Health Records under [email or web address] and then click on the [employer] logo. HOW TO SAFELY DISPOSE OF PRESCRIPTION MEDICATIONS Please use one of the following methods to safely dispose of your unused medications. 1.Use a drug disposal kit: the drug disposal pouch allows you to safely discard your old and unuseddrugs. Ask your nurse to give you one when you are discharged.2.Visit a local take-back location: Many local pharmacies and police departments have programs that collect old and unwanted prescriptiondrugs. Call your local pharmacy or go to http://Alumni[employer]under.[employer]/1Y3Sh2z to find one close to you.3.Make use of household items: Use cat litter or old coffee grounds to dispose medications if other options arenot available. Mix your drugs with these household products, seal them in an airtight container andthrow it into the garbage. Call [facility]: [phone] to be sure your drugs can be disposed of in this way. Some medicines may require a different approach.4.Never flush your medications down the toilet. IF YOU HAVE BEEN PRESCRIBED AN OPIOID FOR PAIN If you have been prescribed an opioid (such as hydrocodone, oxycodone or morphine), it is critical to understand the possible side effects and risks of opioid pain medications. Even when taken as directed, opioids can have several side effects including: Tolerance, meaning you might need to take more of a medication for the same pain relief. Nausea, vomiting and/or constipation. Sleepiness, dizziness, dry mouth, confusion, depression or itching. Physical dependence, meaning you have withdrawal symptoms when a medication is stopped, can develop within a few days. KNOW YOUR RESPONSIBILITIES It is important to know exactly how much and how often to take the opioid pain medications you are prescribed. Never take opioids in higher amounts or more often than prescribed. Do not combine opioids with alcohol or other drugs that cause drowsiness, such as benzodiazepines, also known as benzos, including diazepam and alprazolam, muscle relaxants or sleep aids. Never sell or share prescription opioids. This is illegal. Store opioids in a secure place and out of reach of others (including children, family, friends and visitors). The last page of this document has been signed and retained as a CHART COPY. Signatures Patient Education Materials Bunion Surgery, Care After Moderate Conscious Sedation, Adult, Care After Medication Leaflets My discharge plan and instructions have been reviewed and explained to me and I,CHICA SHAH understand my current condition and have read and understand these discharge instructions. I have received a written copy of the plan/instructions. If I have questions, I am aware that I should contact my doctor. Patient/Insurance Follow Up Representative Signature: Date/Time: Relationship to Patient: Witness Name/Signature: Date/Time: [facility]01-27-2023 Anesthesiology Consult note Patient: CHICA SHAH Age: 57 years Sex: Female : 1965 Associated Diagnoses: None Author: JAKE JACKSON APRN-[employer] Preoperative Information Time of last food or liquid consumption: 09/16/2022 00:00:00 Anesthesia history Patient's history: negative. Family's history: negative. Health Status Allergies: Allergic Reactions (Selected) No Known Medication Allergies, Allergies (1) ActiveReaction No Known Medication AllergiesNone Documented Current medications: (Selected) Inpatient Medications Ordered LR 1,000 mL: 125 mL/hr, Intravenous cefOXitin: 1 gram(s), 200 mL/hr, IV Piggyback, PREOP pharm Documented Medications Documented DULoxetine 60 mg oral delayed release capsule: TAKE 1 CAPSULE BY MOUTH ONCE DAILY Trulicity Pen 3 mg/0.5 mL subcutaneous solution: Inject 3 mg subcutaneously one time a week. atorvastatin 20 mg oral tablet: TAKE 1 TABLET BY MOUTH THREE TIMES WEEKLY gabapentin 300 mg oral capsule: 300 mg, 1 cap(s), Oral, BID, 60 cap(s), 0 Refill(s) levothyroxine 88 mcg (0.088 mg) oral tablet: Take 1 tablet by mouth daily before breakfast. metFORMIN 500 mg oral tablet (IR): TAKE 2 TABLETS BY MOUTH TWICE DAILY WITH MEALS nortriptyline 50 mg oral capsule: TAKE 1 CAPSULE BY MOUTH DAILY AT BEDTIME omeprazole 40 mg oral delayed release capsule: TAKE 1 CAPSULE BY MOUTH EVERY DAY tiZANidine 4 mg oral tablet: Take 1 tablet by mouth every 8 hours as needed (muscle spasms)., Medications (2) Active Scheduled: (1) ceFOXitin 1 gram(s), IV Piggyback, PREOP pharm Continuous: (1) Lactated Ringers 1,000 mL 1,000 mL, Intravenous, 125 mL/hr PRN: (0) Problem list: Active Problems (5) Arthritis Cirrhosis of liver Diabetes GERD (gastroesophageal reflux disease) Hypothyroidism Histories Past Medical History: No active or resolved past medical history items have been selected or recorded. Family History: Cancer Mother () Diabetes Mother () Sister Procedure history: Cholecystectomy (83903750). Bunionectomy ([id number]). Comments: 09/06/2022 11:25 Yamini York RN BILATERAL Hysterectomy ([id number]). Tumor ([id number]). Comments: 09/06/2022 11:26 Yamini York RN FATTY TUMORS TO NECK REMOVED Gastric bypass operation ([id number]). Comments: 09/16/2022 11:08 Bradly Weber RN 2010 Social History Social & Psychosocial Habits Alcohol 09/06/2022 Use: Never Substance Abuse 09/06/2022 Use: Never Tobacco 09/06/2022 Tobacco Use: Never (less than 100 in l Home/Environment 09/06/2022 Domestic Concerns None Living situation: Home/Independent Nutrition/Health 09/16/2022 Type of diet: Regular Appetite Excellent Eating Difficulties None . Physical Examination Vital Signs 09/16/2022 12:50 EST Heart Rate Monitored 91 bpm bpm Respiratory Rate - Anes 14 br/min br/min Systolic Blood Pressure Non-Invasive 115 mmHg mmHg Diastolic Blood Pressure Non-Invasive 77 mmHg mmHg 09/16/2022 11:09 EST Temperature Temporal Artery 36.3 DegC Peripheral Pulse Rate 95 bpm Respiratory Rate 18 br/min Systolic Blood Pressure Non-Invasive 130 mmHg Diastolic Blood Pressure Non-Invasive 92 mmHg HI Vital Signs(last 24 hrs) Last Charted Heart Rate Jygflsalo93 bpm (SEP 16 12:50) Resp Rate 18 br/min (SEP 16 11:09) FTX678 mmHg (SEP 16 12:50) DBP77 mmHg (SEP 16 12:50) Measurements from flowsheet : Measurements 09/16/2022 11:11 EST Height 157.5 cm Admission Weight 78.8 kg [place] Body Weight 50.12 kg Admission Body Mass Index 31.77 m2 Pain assessment: Pain Assessment 09/16/2022 11:11 EST Primary Pain Location Foot Primary Pain Laterality Left Primary Pain Intensity 6 Pain Scale Type 0-10 Pain scale . General: Alert and oriented. Airway: Normal temporomandibular joint mobility, Normal mouth, Normal neck range of motion. Mallampati classification: II (soft palate, fauces, uvula visible). Dentition Evaluation: No teeth. Respiratory: Respirations are non-labored. Cardiovascular: Normal rate. Neurologic: Alert, Oriented. Review / Management Results review: No qualifying data available , Lab results 09/16/2022 12:58 EST SN - DRS - Site and Details RIGHT FOOT INCISION 09/16/2022 12:57 EST SN - CTm - Surgery Start 09/16/2022 12:55 09/16/2022 12:57 EST SN - CAt - Case Attendee SN - CAt - Case Attendee SN - CAt - Role Performed Configuration Management Consultant 1 09/16/2022 12:55 EST SN - Cul - Culture Type No Specimen per Surgeon 09/16/2022 12:55 EST SN - CAt - Case Attendee SN - CAt - Case Attendee 09/16/2022 12:50 EST Heart Rate Monitored 91 bpm bpm Respiratory Rate - Anes 14 br/min br/min Systolic Blood Pressure Non-Invasive 115 mmHg mmHg Diastolic Blood Pressure Non-Invasive 77 mmHg mmHg Oxygen Saturation 100 % % AOH MAIN OR Preop & Phase II Record AOH MAIN OR Preop & Phase II Record 09/16/2022 12:45 EST SN - CTm - Anesthesia Start Time Anesthesia Start 09/16/2022 12:37 EST SN - Proc - Anesthesia Type MAC SN - Proc - Actual Procedure ALEKSANDRA OSTEOTOMY RIGHT FOOT 09/16/2022 12:37 EST SN - SP - Prep Agents Chloraprep SN - SP - HR - Method N/A 09/16/2022 12:36 EST SN - CAt - Case Attendee SN - CAt - Case Attendee 09/16/2022 12:35 EST SN - PP - Body Position Supine Standard Intra-op 09/16/2022 12:35 EST SN - PTCare - Anti-thromboembolism Michelle Sequential Compression Device (SCD) 09/16/2022 12:34 EST SN - Assess - LOC Alert, Awake SN - Assess - Orientation Follows simple commands, Oriented X 3 SN - Assess - Post-op Skin Integrity Intact/Dry 09/16/2022 12:34 EST SN - NV - Medication MARCAINE BUPIVACAINE 0.5% 30ML SN - NV - Route of Administration Local SN - NV - By (Single) SN - NV - By (Single) 09/16/2022 12:33 EST SN - GCD - Post-operative Diagnosis HALLUX VALGUS, RIGHT SN - GCD - Case Level Level 4 09/16/2022 12:33 EST SN - CAt - Case Attendee SN - CAt - Case Attendee SN - CAt - Case Attendee SN - CAt - Case Attendee SN - CAt - Role Performed Primary Surgeon SN - CAt - Role Performed RAILWAY TRACTION LINE WORKER SN - CAt - Role Performed Street Superintendent 1 SN - CAt - Role Performed Scrub 1 09/16/2022 11:49 EST XR Foot Minimum 3 Views Left XR FOOT MINIMUM 3 VIEWS LEFT 09/16/2022 11:38 EST [place] History and Physical 09/16/2022 11:26 EST SN - Preop - CTm Pt in SDS Room 09/16/2022 11:00 SN - Preop - CTm Pt Ready for OR/Proced 09/16/2022 11:26 09/16/2022 11:26 EST SCD On/Re-applied left knee high 09/16/2022 11:24 EST Lactated Ringers Injection Begin Bag 1,000 mL mL 09/16/2022 11:23 EST Blood Glucose, Capillary 86 mg/dL Antecubital Left 09/16/2022 20 gauge Peripheral IV Activity: Insert new site Peripheral IV Dressing Condition: Clean, Dry, Intact Peripheral IV Dressing Activity: Applied Peripheral IV Line Status/Patency: Flushes easily Peripheral IV Site Condition: No complications Peripheral IV Equipment: Extension set Peripheral IV Number of Attempts: 1 09/16/2022 11:11 EST Height 157.5 cm Admission Weight 78.8 kg [place] Body Weight 50.12 kg Admission Body Mass Index 31.77 m2 Primary Pain Location Foot Primary Pain Laterality Left Primary Pain Intensity 6 Pain Scale Type 0-10 Pain scale Abdomen Description Non-distended, Symmetric Abdomen Palpation Non-Tender Bowel Sounds All Quadrants Present Urinary Elimination Voiding, no difficulties Skin Temperature Warm Skin Description Normal for ethnicity Skin Integrity Not intact Level of Consciousness Alert Strength All Extremities Strong Tone All Extremities Normal Sensation All Extremities Intact Affect/Behavior Appropriate, Calm, Cooperative Orientation Oriented x 4 Infectious Disease Symptoms Patient states no symptoms Allergies Yes Consent Form Signed Yes Patient Dressed In Hospital gown CHG Preoperative Wash/Wipe Night before procedure, Day of procedure History & Physical On Chart Yes Safety Brochure Information Reviewed Unable to complete [facility] Video Viewed No Teaching Evaluation Verbalizes/Nonverbally indicates understanding Activity Status ADL Awake, Resting NPO Status Maintained Standard Safety ID band on, Call device within reach, Bed in low position, Wheels locked, Upper/Half-Length side-rails up, Phone within reach, personal items within reach, Visitor at bedside, Safety level maintained Patient ID Band on and Verified Yes Implants Verified Yes Pacemaker/AICD Verified Yes Blood Consent Signed Yes Last Fluid Intake 09/16/2022 9:00 Last Food Intake 09/15/2022 19:00 Last Void 09/16/2022 10:45 Admission Note-Nursing Same Day Patient History (Modified) 09/16/2022 11:09 EST Temperature Temporal Artery 36.3 DegC Peripheral Pulse Rate 95 bpm Respiratory Rate 18 br/min Systolic Blood Pressure Non-Invasive 130 mmHg Diastolic Blood Pressure Non-Invasive 92 mmHg HI Heart Rhythm Regular Oxygen Saturation 98 % Belongings At Bedside Coat, Glasses, Pants, Shirt, Shoes, Undergarments . Assessment and Plan [place] [employer] (ASA) physical status classification: Class III. Anesthetic Preoperative Plan Anesthetic technique: MAC. Informed consent: signed by patient. Digitally Signed by JAKE JACKSON on 09/16/2022 12:59 PM [facility]01-27-2023 Note ORIGINAL EXAMINATION: THREE XRAY VIEWS OF THE LEFT FOOT09/16/2022 11:51 am COMPARISON: None HISTORY: ORDERING SYSTEM PROVIDED HISTORY: Reason for Exam: fall/injury at home FINDINGS: There is no acute fracture or dislocation. There is moderate soft tissue swelling dorsally over the metatarsals. There is slight flattening of the 2nd metatarsal head, which can be seen with Freiberg's infraction. There is no radiopaque foreign body. The articulations are intact. IMPRESSION: Soft tissue swelling, without acute fracture or dislocation. Interpreted by: Elpidio Carter DO Preliminary Report By: Elpidio Carter DO Electronically signed By Elpidio Carter DO Dictated Date: 09/16/2022 12:21:52 PM Prelim Date: 09/16/2022 12:23:59 PM Sign Date: 09/16/2022 12:23:59 PM Ordering Provider: AUDELIA SANTIZO [facility]01-27-2023 Note ORIGINAL EXAMINATION: THREE XRAY VIEWS OF THE LEFT FOOT09/16/2022 11:51 am COMPARISON: None HISTORY: ORDERING SYSTEM PROVIDED HISTORY: Reason for Exam: fall/injury at home FINDINGS: There is no acute fracture or dislocation. There is moderate soft tissue swelling dorsally over the metatarsals. There is slight flattening of the 2nd metatarsal head, which can be seen with Freiberg's infraction. There is no radiopaque foreign body. The articulations are intact. IMPRESSION: Soft tissue swelling, without acute fracture or dislocation. Interpreted by: Elpidio Carter DO Preliminary Report By: Elpidio Carter DO Electronically signed By Elpidio Carter DO Dictated Date: 09/16/2022 12:21:52 PM Prelim Date: 09/16/2022 12:23:59 PM Sign Date: 09/16/2022 12:23:59 PM Ordering Provider: [facility]01-27-2023 Note [place] ADMISSION HISTORY AND PHYSICIAL CHIEF COMPLAINT: HISTORY OF PRESENT ILLNESS: Pt had a fall and now has pain and swelling in ipsilateral left foot REVIEW OF SYSTEMS: ACTIVE PROBLEMS: (5) Arthritis (1207989) Cirrhosis of liver (84686235) Diabetes (286404311) GERD (gastroesophageal reflux disease) (475703340) Hypothyroidism (85391291) MEDICATIONS: Active Inpt Meds: cefOXitin Start: 09/16/22 10:59:00 EST, Dose = 1 gram(s), IV Piggyback, PREOP pharm, Rate: 200 mL/hr, Infuse over: 30 minute(s), 0, 09/16/22 10:59:00 EST Active PRN Meds: None One Time Meds: None Active IV Meds: Lactated Ringers Infusion 1,000 mL (LR 1,000 mL) Start: 09/16/22 10:59:00 EST, Rate: 125 mL/hr, 09/16/22 10:59:00 EST ALLERGIES: (1) No Known Medication Allergies FAMILY HISTORY: SOCIAL HISTORY: PHYSICAL EXAM: VITALS: [id number](kg) 09/16 11:0936.3--[id number]--59/27 78.8 24 Hr Tmax: 36.3 at 09/16 11:09 36 Hr Tmax: 36.3 at 09/16 11:09 Vital Signs are the last 5 in the past 48 hours. Weights display the last 5 within 7 days. Initial Wt: 09/16 78.8 kg 173 lb Current Wt: 09/16 78.8 kg 173 lb GENERAL: HEENT: CARDIOVASCULAR: RESPIRATORY: ABDOMEN: EXREMETIES: right foot bunion, left foot pain and swelling with substantial bruising over 2nd met shaft NEUROLOGICAL: PSYCHIATRIC: LABS: 36hr Labs 09/16 1123 Blood Glucose, [id number] Blood Glucose, [id number] DIAGNOSTICS: IMPRESSION: PLAN:in addition to normal H and P/surgical foot, we will order plain films on left foot in case there is dislocation/fracture Digitally Signed by AUDELIA SANTIZO DPM on 09/16/2022 11:39 AM [facility]01-12-2023 Miscellaneous Notes* Telephone Encounter - Azalia Haas LPN - 09/01/2022 4:33 PM EST Patient has been identified by name and date of : Yes Patient phones for refill(s): Requested Prescriptions Pending Prescriptions Disp Refills dulaglutide (TRULICITY) 3 mg/0.5 mL pen injector 2 mL 2 Sig: Inject 3 mg subcutaneously one time a week. Date of last office visit in primary care: 06/13/2022 4 month follow-up: 10/14/2022 Last 2 Encounter Wt Readings: Date: Wt: 06/13/2022 81.2 kg (179 lb) 03/14/2022 79.8 kg (176 lb) Previous labs/tests for medication: Diabetes: Hemoglobin A1C (%) Date Value 06/13/2022 6.0 09/02/2021 7.8 05/28/2021 9.3 Hemoglobin A1C (POCT) (%) Date Value 12/03/2021 5.8 Please advise. Thank you. Azalia Haas LPN * Telephone Encounter - Shelby Madrigal - 09/01/2022 4:08 PM EST Patient has been identified by name and date of : Yes, Provider OLDER, CECILIA Patient phones for refill(s): Requested Prescriptions Pending Prescriptions Disp Refills dulaglutide (TRULICITY) 3 mg/0.5 mL pen injector 2 mL 2 Sig: Inject 3 mg subcutaneously one time a week. Date of last office visit in primary care: 06/13/22 Last 2 Encounter Wt Readings: Date: Wt: 06/13/2022 81.2 kg (179 lb) 03/14/2022 79.8 kg (176 lb) Previous labs/tests for medication: Not applicable Please advise. Thank you. Shelby Madrigal documented [facility] Miscellaneous Notes* Telephone Encounter - Ole Michel Ma - 07/22/2022 2:43 PM EST Last refill: med update Patient's request for medication is as follows: Requested Prescriptions Pending Prescriptions Disp Refills tiZANidine (ZANAFLEX) 4 mg tablet Sig: Take 1 tablet by mouth every 8 hours as needed (muscle spasms). Please approve the above prescription(s) to electronically send to pharmacy. Ole Michel Ma * Telephone Encounter - Viviana King - 07/22/2022 8:16 AM EST Patient has been identified by name and date of : Yes Last office visit in this department: 06/13/2022 RX INSTRUCTIONS: Patient aware RX will be sent to pharmacy. No need to notify patient. Patient phones requesting refills as follows: Requested Prescriptions Pending Prescriptions Disp Refills tiZANidine (ZANAFLEX) 4 mg tablet Sig: Take 1 tablet by mouth every 8 hours as needed (muscle spasms). Please review and advise. Viviana King documented in this encounter[facility]10[facility]24-[facility] History of Present illness Narrative* Cecilia Older, MRI MANAGER.JASPREET - 06/13/2022 1:09 PM EDT CC: Patient presents with: F/U 6 months HPI Chica Shah is a 57 year old female who presents today for above. Fibromyalgia Pain controlled with Duloxetine and Zanaflex . Hypothyroidism Taking Levothyroxine daily on an empty stomach. TSH (uU/mL) Date Value 09/02/2021 1.900 09/23/2020 0.829 Diabetes mellitus type 2 in obese (HCC) Home blood sugar readings: average < 150 Hypoglycemia: No She is compliant with medication(s) and is tolerating med(s) without any side effects. Denies increased thirst, urinary frequency, nocturia, fatigue, unintentional weight loss, blurred vision, numbness, tingling or pain in extremities, ulcers or sores on feet Last Ophthalmology exam was this month. Patient's last HgA1C was Hemoglobin A1C (%) Date Value 09/02/2021 7.8 05/28/2021 9.3 Hemoglobin A1C (POCT) (%) Date Value 12/03/2021 5.8 REVIEW OF SYSTEMS General: no fevers, no chills, no night sweats, no change in energy, and no significant changes in weight Respiratory: no cough, no wheezing, no shortness of breath Cardiovascular: no chest pain, no chest pressure, no palpitations, and no swelling PAST MEDICAL HISTORY Diagnosis Date COVID-19 virus infection 06/12/2020 Diabetes mellitus type 2 in obese (HCC) 06/01/2011 Displaced fracture of base of fifth metacarpal bone of right hand with routine healing 02/11/2016 DJD (degenerative joint disease) left knee, hips Dysmetabolic syndrome X 03/14/2008 impaired fasting glucose Extensor intersection syndrome 12/30/2013 Fatty liver 07/20/2011 VIRGEN Fibromyalgia 06/03/2014 Gastric bypass status for obesity 07/2011 Hot flashes due to surgical menopause 11/17/2010 Hyperlipidemia 07/20/2011 Hypothyroidism Knee pain 12/06/2010 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 05/19/2015 Unspecified essential hypertension Urine, incontinence, stress female 12/02/2011 Vitamin D deficiency PAST SURGICAL HISTORY Procedure Laterality Date DELIVERY ONLY 08/21/2000 , low transverse COLONOSCOPY - DIAGNOSTIC 10/29/2020 EGD 10/29/2020 GASTRIC BYPASS, SHASHA-EN-Y 08/16/2011 laparoscopic, [facility] HYSTERECTOMY HX 08/21/2007 Menorrhagia, Vaginal hysterectomy LAPAROSCOPIC CHOLECYSTECTOMY 12/02/2020 ROTATOR CUFF REPAIR 06/10/2014 Dr. Hansen, Right shoulder ROTATOR CUFF REPAIR 09/09/2014 Redo, right shoulder. SALPINGO-OOPHORECTOMY COMPL/PRTL UNI/BI SPX 08/21/2008 b/l due to pain TONSILLECTOMY HX 08/21/2005 ALLERGIES Celebrex [Celecoxib], Latex, and Nsaids (Non-Steroidal Anti- Inflammatory Drug) MEDICATIONS nortriptyline (PAMELOR) 50 mg capsule Take 1 capsule by mouth daily at bedtime. tiZANidine (ZANAFLEX) 4 mg tablet Take 1 tablet by mouth twice daily as needed (muscle spasms). levothyroxine (SYNTHROID) 88 mcg tablet Take 1 tablet by mouth daily before breakfast. DULoxetine (CYMBALTA) 60 mg capsule Take 1 capsule by mouth once daily. atorvastatin (LIPITOR) 20 mg tablet Take 1 tablet by mouth three times a week. metFORMIN (GLUCOPHAGE) 500 mg tablet Take 2 tablets by mouth twice daily with meals. . gabapentin (NEURONTIN) 300 mg capsule One capsule in AM. Two capsules at bedtime. omeprazole (PRILOSEC) 40 mg capsule Take 1 capsule by mouth once daily. dulaglutide (TRULICITY) 1.5 mg/0.5 mL pen injector Inject 1.5 mg subcutaneously one time a week. blood sugar diagnostic (BLOOD GLUCOSE TEST) test strip Test blood sugar(s) 2 times daily. Dx: Type 2 DM - Uncontrolled E11.65 Insulin: No Lancets lancets Test 3 times weekly, Insulin Dep? No E11.9 DM 2 nystatin-triamcinolone (MYCOLOG) ointment Apply sparingly to skin area with rash twice daily as needed. diclofenac sodium (VOLTAREN) 1 % topical gel Apply 2 g to affected area four times daily as needed (pain.). diphenhydramine HCl (BENADRYL ALLERGY ORAL) Take 2 capsules by mouth daily at bedtime. Biotin 1 mg tab Take 1 tablet by mouth once daily. FAMILY HISTORY Adopted: Yes Problem Relation Age of Onset Diabetes Mother Cancer Mother Stroke Mother Diabetes Father at age 46 Diabetes Sister Diabetes Sister Hypertension Sister Hypertension Sister Social History Tobacco Use Smoking status: Never Smokeless tobacco: Never Vaping Use Vaping Use: Never used Substance Use Topics Alcohol use: No Drug use: No PHYSICAL EXAM BP 127/91 Pulse 94 Resp 18 Wt 81.2 kg (179 lb) LMP 11/21/2007 BMI 32.74 kg/m General Appearance: well appearing, in no acute distress, alert Pysch: mood and affect broad and appropriate Lungs: Lungs clear to auscultation. No wheezing, rhonchi, rales. Heart: RRR without murmur, gallop, or rubs. No ectopy Health maintenance reviewed with patient: HEPATITIS B(1 of 3 - 3-dose series) Never done DTAP,TDAP,TD(1 - Tdap) due on 07/07/2009 SHINGRIX VACCINE(1 of 2) Never done MAMMOGRAM due on 02/16/2018 DEPRESSION ASSESSMENT Never done COVID-19 VACCINE(3 - Booster for Pfizer series) due on 12/15/2021 HBA1C due on 06/04/2022 DILATED RETINAL EXAM due on 05/19/2022 PNEUMOCOCCAL(1 - PCV) due on 09/08/2022 URINE ALBUMIN:CREATININE RATIO due on 09/02/2022 LDL CHOLESTEROL due on 09/08/2022 DIABETIC FOOT EXAM due on 09/08/2022 ANNUAL PCP TEAM CHRONIC DISEASE VISIT due on 12/03/2022 COLORECTAL CANCER SCREENING due on 10/29/2030 HEPATITIS C SCREENING Completed HIV SCREENING Completed PAP TESTING Discontinued HPV TESTING Discontinued INFLUENZA Discontinued DATA REVIEWED: Most recent labs ASSESSMENT/PLAN: 1. Diabetes mellitus type 2 in obese (HCC) - ICD9: 250.00, 278.00, ICD10: E11.69, E66.9 (primary diagnosis) improved control, patient does not have meter with her today. HgbA1c has not resulted yet. She is disappointed that she hasn't lost more weight, will increase Trulicity - Continue current medications - Increase Trulicity to 3 mg weekly - METFORMIN 500 MG TABLET 2. Hypothyroidism, unspecified type - ICD9: 244.9, ICD10: E03.9 Continue current dose for now, waiting for results of TSH - LEVOTHYROXINE 88 MCG TABLET 3. Fibromyalgia - ICD9: 729.1, ICD10: M79.7 Stable - DULOXETINE 60 MG CAPSULE,DELAYED RELEASE - GABAPENTIN 300 MG CAPSULE - TIZANIDINE 4 MG TABLET 4. Hyperlipidemia, unspecified hyperlipidemia type - ICD9: 272.4, ICD10: E78.5 - to be determined upon return of lab results - Continue current medication. - ATORVASTATIN 20 MG TABLET 5. Chronic low back pain, unspecified back pain laterality, unspecified whether sciatica present - ICD9: 724.2, 338.29, ICD10: M54.50, G89.29 Stable - GABAPENTIN 300 MG CAPSULE 6. Cervicalgia - ICD9: 723.1, ICD10: M54.2 Stable - GABAPENTIN 300 MG CAPSULE 7. Encounter for immunization - ICD9: V03.89, ICD10: Z23 - [employer] COVID-19 BIVALENT BOOSTER VACCINE, AGE 12+ YR 8. Obesity, Class I, BMI 30-34.9 - ICD9: 278.00, ICD10: E66.9 Weight decreasing Prescription instructions reviewed with patient as applicable. Potential red flag symptoms discussed with the patient. Reviewed appropriate action plan to take if red flag symptoms occur. Patient agreeable to treatment plan. Cecilia Barry APRN.CNP documented in this encounter[facility]22 History of Present illness Narrative* Kera Richmond MD - 04/26/2022 6:58 PM EDT Patient presents with painful subcutaneous mass. Excision of this lesion reveals - subcutaneous lipoma 1.2 cm. Patient tolerated procedure well. Follow up as per needed. * Holly Jarrett - 04/26/2022 8:13 AM EDT UNIVERSAL PROTOCOL / SAFETY CHECKLIST Procedure to be Performed: Excision of Subcutaneous mass of Mid Back Sign In: A Moment of CARE was completed. Personnel directly involved with the procedure wore the appropriate PPE (Personal Protective Equipment). Patient/Surrogate Stated/Verified: PATIENT VERIFIED(optional for EMERGENT procedures): Patient name, Date of , Relevant allergies, and The intended procedure Time Out Communication: Intended patient and procedure match the source documents. Consent documented and matches the intended procedure. Sign Out: SIGN OUT (optional for EMERGENT procedures): All specimen containers correctly labeled. Holly Jarrett documented in this encounterMet[facility]-06-2022 Procedure note* Kera Richmond MD - 04/26/2022 6:58 PM EDTProcedure(s): EXCISION TUMOR SOFT TISSUE BACK/FLANK SUBQ <3CM Pre-Procedure Diagnose(s): Lipoma of torso; Dysesthesia Post-Procedure Diagnose(s): Lipoma of torso; Dysesthesia Description of procedure: After informed consent was obtained, patient was brought to the procedure room. Appropriate time out protocol was followed. Patient was placed in the prone position. The site of the lesion was then cleansed with a sterile surgical skin preparation. Appropriate sterile surgical drapes were placed. The skin and subcutaneous tissues at the site were then infiltrated with local anesthetic. A skin incision was made over the lesion with a 15 blade scalpel. The incision was carried down to the subcutaneous tissues. Dissection was done to separate the skin lesion from the surrounding subcutaneous tissues. The lesion was excised sharply down to the subcutaneous tissues. The lesion was 1.2 cm in size. It was consistent with a lipoma. The tissue was then removed and placed in formalin to be forwarded to pathology for analysis. Hemostasis was controlled by pressure. The skin edges were then reapproximated with interrupted 3-0 vicryl in a subcuticular fashion. Sterile dressing was applied. Patient tolerated procedure well. Complications: none EBL: minimal documented in this encounterMet[facility]09-06-2022 Instructions* Patient Instructions* Holly Jarrett - 04/26/2022 8:22 AM EDT The following instructions are important for you related to your office visit today with the [facility] General Surgeons. Instructions After SKIN EXCISION-SUTURES You can remove the dressing in two days. If the dressing becomes soaked or had significant drainage, the dressing should be changed. If there is minor bleeding from this skin edge, you should hold pressure on the incision until the bleeding stops. If there is continued bleeding, you should contact our office immediately. You do not need to leave a dressing on the wound after two days. If the wound shows signs of redness, inflammation, or purulent drainage, you should contact our office immediately. You should keep the wound dry for the first two days. After that time, you may wash the wound with gentle soap and water. The wound should not be immersed in a pool, bathtub, or even hot tub. If you note any additional difficulties, questions, or concerns, you should contact our office immediately @ [phone] and ask to be transferred to the General Surgery department. documented in this encounterMet[facility]08-30-2022 Procedure note* Kera Richmond MD - 04/19/2022 1:52 PM EDTProcedure(s): EXCISION TUMOR SOFT TISSUE BACK/FLANK SUBQ <3CM Pre-Procedure Diagnose(s): Lipoma of back; Dysesthesia Post-Procedure Diagnose(s): Lipoma of back; Dysesthesia Description of procedure: After informed consent was obtained, patient was brought to the procedure room. Appropriate time out protocol was followed. Patient pointed out the lesion and it was marked prior to procedure. Patient was placed in the prone position. The site of the lesion was then cleansed with a sterile surgical skin preparation. Appropriate sterile surgical drapes were placed. The skin and subcutaneous tissues at the site were then infiltrated with local anesthetic. A skin incision was made over the lesion with a 15 blade scalpel. The incision was carried down to the subcutaneous tissues. Dissection was done to separate the skin lesion from the surrounding subcutaneous tissues. The lesion was excised sharply down to the subcutaneous tissues. The lesion was 1.2 cm in size. The tissue was then removed and placed in formalin to be forwarded to pathology for analysis. Hemostasis was controlled by pressure. The skin edges were then reapproximated with interrupted 3-0 vicryl in a subcuticular fashion. Sterile dressing was applied. Patient tolerated procedure well. Complications - none EBL - minimal documented in this encounterMet[facility]08-30-2022 History of Present illness Narrative* Kera Richmond MD - 04/19/2022 1:51 PM EDT Chica is here for excision of superfical back lipoma that she states is causing her pain. She tolerated procedure well. She will follow up as per needed. * Jennifer Gentile RN - 04/19/2022 8:15 AM EDT UNIVERSAL PROTOCOL / SAFETY CHECKLIST Procedure to be Performed: Excision of lipoma of back. Sign In: A Moment of CARE was completed. Personnel directly involved with the procedure wore the appropriate PPE (Personal Protective Equipment). No special equipment needed. Patient/Surrogate Stated/Verified: PATIENT VERIFIED(optional for EMERGENT procedures): Patient name, Date of , Relevant allergies, and The intended procedure Time Out Communication: Intended patient and procedure match the source documents. Consent documented and matches the intended procedure. No relevant labs, photos, and/or imaging studies were applicable for review. Correct side/site marked and visible. Medications required for procedure verified. No fire risk assessment and interventions applicable. No implant(s) inserted. Sign Out: SIGN OUT (optional for EMERGENT procedures): No specimen collected. No instruments, equipment or retained foreign bodies applicable. Post-procedure follow-up management communicated and Plan of Care Visit completed when applicable. Jennifer Gentile RN documented in this encounterMet[facility]08-30-2022 Instructions* Patient Instructions* Jennifer Gentile RN - 04/19/2022 8:22 AM EDT The following instructions are important for you related to your office visit today with the [facility]. Instructions After SKIN EXCISION-SUTURES (ABSORBABLE) WITH STERI-STRIPS You can remove the dressing in five days. If the dressing becomes soaked or had significant drainage, the dressing should be changed. If there is minor bleeding from this skin edge, you should hold pressure on the incision until the bleeding stops. If there is continued bleeding, you should contactour office immediately. You do not need to leave a dressing on the wound after five days. If the wound shows signs of redness, inflammation, or purulent drainage, you should contact our office immediately. You should keep the wound dry for the first two days. After that time, you may wash the wound with gentle soap and water. The wound should not be immersed in a pool, bathtub, or even hot tub. You may take Tylenol or Ibuprofen as needed for pain. The steri-strips will fall off in 10-14 days. If you note any additional difficulties, questions, or concerns, you should contact our office immediately @ [phone] and ask to be transferred to the General Surgery department. documented in this encounterMet[facility]22 Procedure note* Kera Richmond MD - 03/15/2022 7:38 AM EDT Procedure(s): EXCISION TUMOR SOFT TISSUE BACK/FLANK SUBQ <3CM Pre-Procedure Diagnose(s): Lipoma of back Post-Procedure Diagnose(s): Lipoma of back Description of procedure: After informed consent was obtained, patient was brought to the procedure room. Appropriate time out protocol was followed. Patient was placed in the prone position. The site of the lesion was then cleansed with a sterile surgical skin preparation. This was marked by the patient herself prior to the procedure. Appropriate sterile surgical drapes were placed. The skin and subcutaneous tissues at the site were then infiltrated with local anesthetic. A skin incision was made at the site in over the lesion with a 15 blade scalpel. The incision was carried down to the subcutaneous tissues. Dissection was done to separate the skin lesion from the surrounding subcutaneous tissues. The lesion was excised sharply down to the subcutaneous tissues. The lesion was 1.2 cm in size. The tissue was then removed and placed in formalin to be forwarded to pathology for analysis. Hemostasis was controlled by pressure. The skin edges were then reapproximated with interrupted 3-0 vicryl in a subcuticular fashion. Sterile dressing was applied. Patient tolerated procedure well. Complications: none EBL: minimal documented in this encounterMet[facility]07-25-2022 Instructions* Patient Instructions* Holly Jarrett - 03/14/2022 8:40 AM EDT The following instructions are important for you related to your office visit today with the [facility] General Surgeons. Instructions After SKIN EXCISION-SUTURES You can remove the dressing in two days. If the dressing becomes soaked or had significant drainage, the dressing should be changed. If there is minor bleeding from this skin edge, you should hold pressure on the incision until the bleeding stops. If there is continued bleeding, you should contact our office immediately. You do not need to leave a dressing on the wound after two days. If the wound shows signs of redness, inflammation, or purulent drainage, you should contact our office immediately. You should keep the wound dry for the first two days. After that time, you may wash the wound with gentle soap and water. The wound should not be immersed in a pool, bathtub, or even hot tub. If you note any additional difficulties, questions, or concerns, you should contact our office immediately @ [phone] and ask to be transferred to the General Surgery department. documented in this encounterMet[facility]07[facility]22 History of Present illness Narrative* Kera Richmond MD - 03/14/2022 8:38 AM EDT Patient presents for excision of subcutaneous mass of upper back. This has been marked out prior to the procedure by the patient and her daughter. The patient requests removal because the lesion is causing her discomfort. Patient has been counseled as to the risks/benefits and she agrees to proceed. She tolerated procedure well. She wishes further lesions to be removed and can schedule for this. Patient acknowledges the above. * Holly Jarrett - 03/14/2022 8:15 AM EDT UNIVERSAL PROTOCOL / SAFETY CHECKLIST Procedure to be Performed: Excision of Subcutaneous mass of mid back Sign In: A Moment of CARE was completed. Personnel directly involved with the procedure wore the appropriate PPE (Personal Protective Equipment). Patient/Surrogate Stated/Verified: PATIENT VERIFIED(optional for EMERGENT procedures): Patient name, Date of , Relevant allergies and The intended procedure Time Out Communication: Intended patient and procedure match the source documents. Consent documented and matches the intended procedure. Sign Out: SIGN OUT (optional for EMERGENT procedures): All specimen containers correctly labeled. Holly Jarrett documented in this encounterMet[facility]07-21-2022 Miscellaneous Notes* Telephone Encounter - Azalia Haas LPN - 03/10/2022 5:07 PM EDT Chica is having bunyan removed from right foot, Dr. Santizo. Date has not been set. Patient wantedto schedule pre-op clearance, scheduled 03/18/2022 Azalia Haas LPN * Telephone Encounter - Yoanna Chicas - 03/10/2022 3:29 PM EDT [facility] me to book her for next Monday per the nurse. However, the nurse stated that it would need to be a 40min appt due to this regarding a surgery clearance. Please advise, Yoanna Chicas documented in this encounterMet[facility]07-09-2022 Procedure note* Kera Richmond MD - 02/26/2022 3:31 PM EDT Procedure(s): EXCISION TUMOR SOFT TISSUE BACK/FLANK SUBQ <3CM Pre-Procedure Diagnose(s): Lipoma of torso; Dysesthesia Post-Procedure Diagnose(s): Lipoma of torso; Dysesthesia Description of procedure: After informed consent was obtained, patient was brought to the procedure room. Appropriate time out protocol was followed. Patient was placed in the prone position. The lesion was at the mid left back. The site of the lesion was then cleansed with a sterile surgical skin preparation. Appropriate sterile surgical drapes were placed. The skin and subcutaneous tissues at the site were then infiltrated with local anesthetic. A skin incision was made at the site in over the lesion with a 15 blade scalpel. The incision was carried down to the subcutaneous tissues. Dissection was done to separate the skin lesion from the surrounding subcutaneous tissues. The lesion was excised sharply down to the subcutaneous tissues. The lesion was 1.5 cm in size. The tissue was then removed and placed in formalin to be forwarded to pathology for analysis. Hemostasis was controlled by pressure. The skin edges were then reapproximated with interrupted 3-0 vicryl in a subdermal fashion. Sterile dressing was applied. Patient tolerated procedure well. Complications: none EBL - minimal documented in this encounterMet[facility]07-06-2022 Instructions* Patient Instructions* Holly Jarrett - 02/23/2022 1:22 PM EDT The following instructions are important for you related to your office visit today with the [facility]. Instructions After SKIN EXCISION-SUTURES You can remove the dressing in two days. If the dressing becomes soaked or had significant drainage, the dressing should be changed. If there is minor bleeding from this skin edge, you should hold pressure on the incision until the bleeding stops. If there is continued bleeding, you should contact our office immediately. You do not need to leave a dressing on the wound after two days. If the wound shows signs of redness, inflammation, or purulent drainage, you should contact our office immediately. You should keep the wound dry for the first two days. After that time, you may wash the wound with gentle soap and water. The wound should not be immersed in a pool, bathtub, or even hot tub. Please make an appointment to return to our office in 1-2 weeks. The Stitches will dissolve. If you note any additional difficulties, questions, or concerns, you should contact our office immediately @ [phone] and ask to be transferred to the General Surgery department. documented in this encounterMet[facility]07-06-2022 History of Present illness Narrative* Kera Richmond MD - 02/23/2022 1:18 PM EDT Here for excision of subcutaneous mass of mid left back. It is causing her irritation and therefore she requests removal. She states that it is causing her pain. She tolerated procedure well. She has another lipoma for which she wants to have removed and will scheduled for another appointment * Holly Jarrett - 02/23/2022 1:12 PM EDT UNIVERSAL PROTOCOL / SAFETY CHECKLIST Procedure to be Performed: Excision of Subcutaneous Mass of Mid Back Sign In: A Moment of CARE was completed. Personnel directly involved with the procedure wore the appropriate PPE (Personal Protective Equipment). Patient/Surrogate Stated/Verified: PATIENT VERIFIED(optional for EMERGENT procedures): Patient name, Date of , Relevant allergies and The intended procedure Time Out Communication: Intended patient and procedure match the source documents. Consent documented and matches the intended procedure. Sign Out: SIGN OUT (optional for EMERGENT procedures): All specimen containers correctly labeled. Holly Jarrett documented in this encounterMet[facility]05-19-2022 Instructions* Patient Instructions* Filomena Couch APRN.BOBTAIL DRIVER - 01/06/2022 11:08 AM EDT Assessment and Plan ASSESSMENT/PLAN: 1. Finger pain, right - ICD9: 729.5, ICD10: M79.644 - XR DIGIT GENERAL 3V FRONTAL/LAT/OBL RIGHT - XR HAND GENERAL 3V PA/LAT/OBL RIGHT. My reading: negative. Radiology Impression: 1. No acute fracture or dislocation. Shift Engineer: MIAH Transcribe Date/Time: Jan 06 2022 10:57A Dictated by : ZOË ABDUL MD - Offered finger splint for comfort, patient declined. Offered Rx for ibuprofen, patient declined. - RICE therapy as described. - Follow-up with your PCP in 3-5 days if symptoms have not improved or sooner if symptoms worsen - Discussed red flags and need for immediate medical evaluation if any occur. - Discussed supportive care treatment with fluids, rest and analgesia. - Discussed expected course of illness Lashonda Mistryus TEACHING PROVIDER (Physician/PA/MRI MANAGER) NOTE OF PERSONAL INVOLVEMENT IN CARE: I have personally seen and examined the patient and performed the medical decision-making components. I have reviewed the Advanced Practice Registered Nurse (MRI MANAGER) Student's documentation and verified the findings in the note as written. Any additions or changes are noted in bold/italics. Signature: Filomena Couch Date: 01/06/2022 Time: 11:07 AM R.I.C.E. The general care of your injury includes the following: Resting, Icing, Compressing and Elevating the injured area. Remember this as RICE. REST: Limit the use of the injured body part. ICE: By applying ice to the affected area, swelling and pain can be reduced. Place some ice cubes in a re-sealable (Ziploc) bag and add some water. Put a thin washcloth between the bag and your skin.Apply the ice bag to the area for at least 20 minutes. Do this at least 4 times per day. Using the ice for longer times and more frequently is OK. NEVER APPLY ICE DIRECTLY TO THE SKIN. COMPRESS: Compression means to apply pressure around the injured area such as with a splint, cast or an angela bandage. Compression decreases swelling and improves comfort. Compression should be tight enough to relieve swelling but not so tight as to decrease circulation. Increasing pain, numbness, tingling, or change in skin color, are all signs of decreased circulation. ELEVATE: Elevate the injured part. For example, elevate your foot by placing it on a chair while sitting, or propping it up on pillows when lying down. documented in this encounterMet[facility]05-19-2022 History of Present illness Narrative* Filomena Couch APRN.JASPREET - 01/06/2022 10:46 AM EDT This note was created using NoteWriter. Subjective Chica Shah is a 56 year old female. 56 year old female with PMH of DM presents with c/o right middle finger injury Locate pain in right index finger down lateral side of hand States she tripped going up a step and hyperextended her finger Rates pain 6/10 tight and stiff decreased ROM Denies dizziness, weakness,LOC, head injury Utilized Advil yesterday with mild relief The history is provided by the patient. No spanish language lecturer was used. Musculoskeletal Problem This is a new problem. The current episode started in the past 7 days. The problem has been gradually improving. Associated symptoms include joint swelling. Pertinent negatives include no abdominal pain, chest pain, chills, congestion, fever, headaches, numbness or weakness. Associated symptoms comm ents: Right middle finger. The symptoms are aggravated by bending. She has tried NSAIDs for the symptoms. The treatment provided mild relief. PAST MEDICAL HISTORY Diagnosis Date COVID-19 virus infection 06/12/2020 Diabetes mellitus type 2 in obese (HCC) 06/01/2011 Displaced fracture of base of fifth metacarpal bone of right hand with routine healing 02/11/2016 DJD (degenerative joint disease) left knee, hips Dysmetabolic syndrome X 03/14/2008 impaired fasting glucose Extensor intersection syndrome 12/30/2013 Fatty liver 07/20/2011 VIRGEN Fibromyalgia 06/03/2014 Gastric bypass status for obesity 07/2011 Hot flashes due to surgical menopause 11/17/2010 Hyperlipidemia 07/20/2011 Hypothyroidism Knee pain 12/06/2010 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 05/19/2015 Unspecified essential hypertension Urine, incontinence, stress female 12/02/2011 Vitamin D deficiency PAST SURGICAL HISTORY Procedure Laterality Date DELIVERY ONLY 08/21/2000 , low transverse COLONOSCOPY - DIAGNOSTIC 10/29/2020 EGD 10/29/2020 GASTRIC BYPASS, SHASHA-EN-Y 08/16/2011 laparoscopic, [facility] HYSTERECTOMY HX 08/21/2007 Menorrhagia, Vaginal hysterectomy LAPAROSCOPIC CHOLECYSTECTOMY 12/02/2020 ROTATOR CUFF REPAIR 06/10/2014 Dr. Hansen, Right shoulder ROTATOR CUFF REPAIR 09/09/2014 Redo, right shoulder. SALPINGO-OOPHORECTOMY COMPL/PRTL UNI/BI SPX 08/21/2008 b/l due to pain TONSILLECTOMY HX 08/21/2005 ALLERGIES Celebrex [Celecoxib], Latex, and Nsaids (Non-Steroidal Anti- Inflammatory Drug) MEDICATIONS tiZANidine (ZANAFLEX) 4 mg tablet Take 1 tablet by mouth twice daily as needed (muscle spasms). atorvastatin (LIPITOR) 20 mg tablet Take 1 tablet by mouth three times a week. metFORMIN (GLUCOPHAGE) 500 mg tablet Take 2 tablets by mouth twice daily with meals. . gabapentin (NEURONTIN) 300 mg capsule One capsule in AM. Two capsules at bedtime. DULoxetine (CYMBALTA) 60 mg capsule Take 1 capsule by mouth once daily. levothyroxine (SYNTHROID) 88 mcg tablet Take 1 tablet by mouth daily before breakfast. omeprazole (PRILOSEC) 40 mg capsule Take 1 capsule by mouth once daily. dulaglutide (TRULICITY) 1.5 mg/0.5 mL pen injector Inject 1.5 mg subcutaneously one time a week. nortriptyline (PAMELOR) 50 mg capsule Take 1 capsule by mouth daily at bedtime. blood sugar diagnostic (BLOOD GLUCOSE TEST) test strip Test blood sugar(s) 2 times daily. Dx: Type 2 DM - Uncontrolled E11.65 Insulin: No Lancets lancets Test 3 times weekly, Insulin Dep? No E11.9 DM 2 nystatin-triamcinolone (MYCOLOG) ointment Apply sparingly to skin area with rash twice daily as needed. diclofenac sodium (VOLTAREN) 1 % topical gel Apply 2 g to affected area four times daily as needed (pain.). diphenhydramine HCl (BENADRYL ALLERGY ORAL) Take 2 capsules by mouth daily at bedtime. Biotin 1 mg tab Take 1 tablet by mouth once daily. FAMILY HISTORY Adopted: Yes Problem Relation Age of Onset Diabetes Mother Cancer Mother Stroke Mother Diabetes Father at age 46 Diabetes Sister Diabetes Sister Hypertension Sister Hypertension Sister Social History Tobacco Use Smoking status: Never Smoker Smokeless tobacco: Never Used Vaping Use Vaping Use: Never used Substance Use Topics Alcohol use: No Drug use: No Review of Systems Constitutional: Negative for activity change, appetite change, chills and fever. HENT: Negative for congestion, ear pain and hearing loss. Respiratory: Negative for chest tightness, shortness of breath and wheezing. Cardiovascular: Negative for chest pain. Gastrointestinal: Negative for abdominal distention and abdominal pain. Musculoskeletal: Positive for joint swelling. Allergic/Immunologic: Positive for immunocompromised state (DM). Negative for environmental allergies and food allergies. Neurological: Negative for dizziness, tremors, weakness, light-headedness, numbness and headaches. Psychiatric/Behavioral: Negative for agitation, behavioral problems and confusion. Objective BP 136/84 Pulse 90 Temp 36.6 C (97.8 F) (Tympanic) Resp 18 Wt 82.3 kg (181 lb 6.4 oz) LMP11/21/2007 SpO2 98% BMI 33.18 kg/m Physical Exam Constitutional: General: She is not in acute distress. Appearance: Normal appearance. She is normal weight. She is not ill-appearing, toxic-appearing or diaphoretic. HENT: Head: Normocephalic. Nose: Nose normal. Cardiovascular: Rate and Rhythm: Normal rate and regular rhythm. Pulses: Normal pulses. Heart sounds: Normal heart sounds. Pulmonary: Effort: Pulmonary effort is normal. Breath sounds: Normal breath sounds. Musculoskeletal: General: Swelling, tenderness and signs of injury present. Comments: Right middle finger/hand tenderness Skin: General: Skin is warm and dry. Capillary Refill: Capillary refill takes less than 2 seconds. Comments: Small abrasion to right knee s/p fall Neurological: General: No focal deficit present. Mental Status: She is alert and oriented to person, place, and time. Sensory: No sensory deficit. Motor: No weakness. Gait: Gait normal. Psychiatric: Mood and Affect: Mood normal. Behavior: Behavior normal. Assessment and Plan ASSESSMENT/PLAN: 1. Finger pain, right - ICD9: 729.5, ICD10: M79.644 - XR DIGIT GENERAL 3V FRONTAL/LAT/OBL RIGHT - XR HAND GENERAL 3V PA/LAT/OBL RIGHT. My reading: negative. Radiology Impression: 1. No acute fracture or dislocation. Shift Engineer: MIAH Transcribe Date/Time: Jan 06 2022 10:57A Dictated by : ZOË ABDUL MD - Offered finger splint for comfort, patient declined. Offered Rx for ibuprofen, patient declined. - RICE therapy as described. - Follow-up with your PCP in 3-5 days if symptoms have not improved or sooner if symptoms worsen - Discussed red flags and need for immediate medical evaluation if any occur. - Discussed supportive care treatment with fluids, rest and analgesia. - Discussed expected course of illness Lashonda Chambers TEACHING PROVIDER (Physician/PA/MRI MANAGER) NOTE OF PERSONAL INVOLVEMENT IN CARE: I have personally seen and examined the patient and performed the medical decision-making components. I have reviewed the Advanced Practice Registered Nurse (MRI MANAGER) Student's documentation and verified the findings in the note as written. Any additions or changes are noted in bold/italics. Signature: Filomena Couch Date: 01/06/2022 Time: 11:07 AM documented in this encounterMet[facility]05-19-2022 History of Present illness Narrative* Urszula Hassan RT(R) - 01/06/2022 10:40 AM EDT Radiology Service Progress Note PATIENT NAME: Chica Shah DATE OF SERVICE: January 06, 2022 TIME: 10:43 AM PATIENT IDENTITY VERIFICATION COMPLETED USING TWO (2) IDENTIFIERS: Name and Date of confirmedby patient verbally. FALL SCREENING: Has the patient had 2 falls in the last year or 1 fall with injury or currently using an Ambulatory Assistive Device (Walker, Cane, Wheelchair, Crutches, etc.)? No PATIENT GENDER DATA: Female. status: : No status: NO. 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 Results in [facility] Recs for pickling operator. Kimmie Braswell LPN documented in this encounterMetro[facility]04-20-2022 Procedure note* Kera Richmond MD - 12/08/2021 3:45 PM EDT Procedure(s): EXCISION TUMOR SOFT TISSUE BACK/FLANK SUBQ <3CM Pre-Procedure Diagnose(s): Lipoma of torso Post-Procedure Diagnose(s): Lipoma of torso Description of procedure: After informed consent was obtained, patient was brought to the procedure room. Appropriate time out protocol was followed. Patient was placed in the prone position. The site of the lesion was then cleansed with a sterile surgical skin preparation. Appropriate sterile surgical drapes were placed. The subcutaneous mass was pointed out by the patient and at the lower right back area and appropriately marked. The skin and subcutaneous tissues at the site were then infiltrated with local anesthetic. A skin incision was made at the site over the lesion with a 15 blade scalpel. The incision was carried down to the subcutaneous tissues. Dissection was done to separate the skin lesion from the surrounding subcutaneous tissues. The lesion was excised sharply down to the subcutaneous tissues. The lesion was 1.5 cm in size. It was consistent with a lipoma. The tissue was then removed and placed in formalin to be forwarded to pathology for analysis. Hemostasis was controlled by pressure. The skin edges were then reapproximated with interrupted 3-0 vicryl in a subcuticular fashion. Sterile dressing was applied. Patient tolerated procedure well. Complications: none EBL - minimal documented in this encounterMetro[facility]04-20-2022 History of Present illness Narrative* Kera Richmond MD - 12/08/2021 3:44 PM EDT Patient presents with painful subcutaneous lipomas and requests removal. She has had previous excision of such lipomas. 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 Patient now requests removal of painful subcutaneous mass of right lower back. Findings of subcutaneous lipoma, completely excised. Patient tolerated procedure well. She will follow up in the clinic in a few weeks for excision of additional lipomas. * Jennifer Gentile RN - 12/08/2021 3:28 PM EDT UNIVERSAL PROTOCOL / SAFETY CHECKLIST Procedure to be Performed: Excision of subcutaneous lipoma of lower back. Sign In: A Moment of CARE was completed. Personnel directly involved with the procedure wore the appropriate PPE (Personal Protective Equipment). No special equipment needed. Patient/Surrogate Stated/Verified: PATIENT VERIFIED(optional for EMERGENT procedures): Patient name, Date of , Relevant allergies and The intended procedure Time Out Communication: Intended patient and procedure match the source documents. Consent documented and matches the intended procedure. No relevant labs, photos, and/or imaging studies were applicable for review. Correct side/site marked and visible. Medications required for procedure verified. No fire risk assessment and interventions applicable. No implant(s) inserted. Sign Out: SIGN OUT (optional for EMERGENT procedures): All specimen containers correctly labeled. No instruments, equipment or retained foreign bodies applicable. Post-procedure follow-up management communicated and Plan of Care Visit completed when applicable. Jennifer Gentile RN documented in this encounterMetro[facility]04-20-2022 Instructions* Patient Instructions* Jennifer Gentile RN - 12/08/2021 3:41 PM EDT The following instructions are important for you related to your office visit today with the [facility]. Instructions After SKIN EXCISION-SUTURES You can remove the dressing in five days. If the dressing becomes soaked or had significant drainage, the dressing should be changed. If there is minor bleeding from this skin edge, you should hold pressure on the incision until the bleeding stops. If there is continued bleeding, you should contactour office immediately. You do not need to leave a dressing on the wound after five days. If the wound shows signs of redness, inflammation, or purulent drainage, you should contact our office immediately. You should keep the wound dry for the first five days. After that time, you may wash the wound withgentle soap and water. The wound should not be immersed in a pool, bathtub, or even hot tub. The sutures will absorb, so you will not have to come back to have them removed. The steri-strips will fall off in 10-14 days. If you note any additional difficulties, questions, or concerns, you should contact our office immediately @ [phone] and ask to be transferred to the General Surgery department. documented in this encounter[facility] Miscellaneous Notes* Telephone Encounter - Ole Michel Ma - 12/08/2021 2:53 PM EDT MANI: 12/03/2021 Last refill: 10/18/2021 QTY: 60 Refills: 2 * Telephone Encounter - Baylee Harris - 12/08/2021 2:15 PM EDT Patient has been identified by name and date of : Yes Pending Prescriptions Disp Refills TIZANIDINE 4 MG TABLET 180 tablet 1 Sig: Take 1 tablet by mouth twice daily as needed (muscle spasms). DERRICK: No RX INSTRUCTIONS: Patient requested 90 days, traveling to [place]. Patient aware RX will be sent to pharmacy. No need to notify patient. Baylee Farias Pss documented in this encounterMet[facility]04-16-2022 Procedure note* Kera Richmond MD - 12/04/2021 5:01 PM EDT Procedure(s): EXCISION TUMOR SOFT TISSUE BACK/FLANK SUBQ <3CM Pre-Procedure Diagnose(s): Lipoma of back Post-Procedure Diagnose(s): Lipoma of back Description of procedure: After informed consent was obtained, patient was brought to the procedure room. Appropriate time out protocol was followed. Patient was placed in the prone position. The site of the lesion was then cleansed with a sterile surgical skin preparation. Appropriate sterile surgical drapes were placed. The skin and subcutaneous tissues at the site were then infiltrated with local anesthetic. A skin incision was made at the site over the lesion with a 15 blade scalpel. The incision was carried down to the subcutaneous tissues. Dissection was done to separate the skin lesion from the surrounding subcutaneous tissues. The lesion was excised sharply down to the subcutaneous tissues. The lesion was 1.2 cm in size. The tissue was then removed and placed in formalin to be forwarded to pathology for analysis. Hemostasis was controlled by pressure. The skin edges were then reapproximated with interrupted 3-0 vicryl in a subcuticular fashion. Sterile dressing was applied. Patient tolerated procedure well. Complications: none EBL: minimal documented in this encounterMet[facility]22 History of Present illness Narrative* Kera Richmond MD - 12/04/2021 5:00 PM EDT Patient is here for excision of upper back lipoma. She tolerated procedure. She will return in the future for removal of additional lipomas. * Ludwin Chicas LPN - 12/03/2021 1:37 PM EDT UNIVERSAL PROTOCOL / SAFETY CHECKLIST Procedure to be Performed: Excision of subcutaneous mass of upper back Sign In: A Moment of CARE was completed. Personnel directly involved with the procedure wore the appropriate PPE (Personal Protective Equipment). Patient/Surrogate Stated/Verified: PATIENT VERIFIED(optional for EMERGENT procedures): Patient name, Date of , Relevant allergies and The intended procedure Time Out Communication: Intended patient and procedure match the source documents. Consent documented and matches the intended procedure. Medications required for procedure verified. No fire risk assessment and interventions applicable. No implant(s) inserted. Sign Out: SIGN OUT (optional for EMERGENT procedures): No specimen collected. No instruments, equipment or retained foreign bodies applicable. Post-procedure follow-up management communicated and Plan of Care Visit completed when applicable. Ludwin Chicas LPN documented in this encounterMet[facility]04-15-2022 Instructions* Patient Instructions* Kera Richmond MD - 12/03/2021 1:56 PM EDT The following instructions are important for you related to your office visit today with the [facility] General Surgeons. Instructions After SKIN EXCISION-SUTURES You can remove the dressing in two days. If the dressing becomes soaked or had significant drainage, the dressing should be changed. If there is minor bleeding from this skin edge, you should hold pressure on the incision until the bleeding stops. If there is continued bleeding, you should contact our office immediately. You do not need to leave a dressing on the wound after two days. If the wound shows signs of redness, inflammation, or purulent drainage, you should contact our office immediately. You should keep the wound dry for the first two days. After that time, you may wash the wound with gentle soap and water. The wound should not be immersed in a pool, bathtub, or even hot tub. We prefer to check the incision and remove the stitches in our office when ready. Please make an appointment to return to our office in 7 days. For additional lipoma removal. Please do not remove the stitches yourself without approval from our office. If you note any additional difficulties, questions, or concerns, you should contact our office immediately @ [phone] and ask to be transferred to the General Surgery department. documented in this encounterMet[facility]04-15-2022 Instructions* Patient Instructions* Jabari Murillo MD - 12/03/2021 8:36 AM EDT FASTING LABS IN 6 MONTHS. CONSIDER TETANUS BOOSTER AND SHINGLES VACCINE. YOU CAN GET THESE AT YOUR PHARMACY ALSO. documented in this encounterMet[facility]04-15-2022 History of Present illness Narrative* Jabari Murillo MD - 12/03/2021 8:23 AM EDT This note was created using [employer]. Subjective Chica Shah is a 56 year old female. She was doing well. She was scheduled to go to [place] for a tour, a gift from her sisters. Her highest glucose she recalled was 160. Lipomas were being excised. Review of Systems Constitutional: Negative. Respiratory: Negative. Cardiovascular: Negative. Gastrointestinal: Negative. ACTIVE PROBLEM LIST Dysmetabolic Syndrome X Hypothyroidism PAIN BACK, LOW Vitamin D Deficiency Diabetes mellitus type 2 in obese (HCC) Hyperlipidemia Fatty Liver Gastric Bypass Status for Obesity Urine, Incontinence, Stress Female Hot Flashes Due to Surgical Menopause Fibromyalgia Cervicalgia Insomnia Due to Medical Condition Obesity, Class II, Bmi 35-39.9 Muscular Weakness Falls Frequently Current Outpatient Medications Medication Sig DULoxetine (CYMBALTA) 60 mg capsule Take 1 capsule by mouth once daily. levothyroxine (SYNTHROID) 88 mcg tablet Take 1 tablet by mouth daily before breakfast. omeprazole (PRILOSEC) 40 mg capsule Take 1 capsule by mouth once daily. tiZANidine (ZANAFLEX) 4 mg tablet Take 1 tablet by mouth twice daily as needed (muscle spasms). atorvastatin (LIPITOR) 20 mg tablet Take 1 tablet by mouth three times a week. dulaglutide (TRULICITY) 1.5 mg/0.5 mL pen injector Inject 1.5 mg subcutaneously one time a week. nortriptyline (PAMELOR) 50 mg capsule Take 1 capsule by mouth daily at bedtime. blood sugar diagnostic (BLOOD GLUCOSE TEST) test strip Test blood sugar(s) 2 times daily. Dx: Type 2 DM - Uncontrolled E11.65 Insulin: No metFORMIN (GLUCOPHAGE) 500 mg tablet Take 2 tablets by mouth twice daily with meals. . Lancets lancets Test 3 times weekly, Insulin Dep? No E11.9 DM 2 gabapentin (NEURONTIN) 300 mg capsule One capsule in AM. Two capsules at bedtime. nystatin-triamcinolone (MYCOLOG) ointment Apply sparingly to skin area with rash twice daily as needed. diclofenac sodium (VOLTAREN) 1 % topical gel Apply 2 g to affected area four times daily as needed (pain.). diphenhydramine HCl (BENADRYL ALLERGY ORAL) Take 2 capsules by mouth daily at bedtime. Biotin 1 mg tab Take 1 tablet by mouth once daily. No current facility-administered medications for this visit. Objective BP 122/68 Pulse 72 Temp 36.1 C (97 F) (Temporal) Resp 18 Wt 81.6 kg (180 lb) LMP 11/21/2007 SpO2 100% BMI 32.92 kg/m Physical Exam Constitutional: Appearance: Normal appearance. Cardiovascular: Rate and Rhythm: Normal rate and regular rhythm. Heart sounds: No murmur heard. No gallop. Pulmonary: Effort: Pulmonary effort is normal. Breath sounds: Normal breath sounds. Musculoskeletal: Right lower leg: No edema. Left lower leg: No edema. Neurological: Mental Status: She is alert. Gait: Gait normal. Hemoglobin A1C (%) Date Value 09/02/2021 7.8 05/28/2021 9.3 Hemoglobin A1C (POCT) (%) Date Value 12/03/2021 5.8 ) Assessment and Plan 1. Hyperlipidemia, unspecified hyperlipidemia type - ICD9: 272.4, ICD10: E78.5 - good control - Continue current medication. - ATORVASTATIN 20 MG TABLET - LIPID PANEL BASIC 2. Diabetes mellitus type 2 in obese (HCC) - ICD9: 250.00, 278.00, ICD10: E11.69, E66.9 Controlled. - Continue current medications - METFORMIN 500 MG TABLET - HEMOGLOBIN A1C (POC) - COMP METABOLIC PANEL - HGB A1C 3. Cervicalgia - ICD9: 723.1, ICD10: M54.2 Controlled. - GABAPENTIN 300 MG CAPSULE 4. Fibromyalgia - ICD9: 729.1, ICD10: M79.7 Controlled. - GABAPENTIN 300 MG CAPSULE 5. Chronic low back pain, unspecified back pain laterality, unspecified whether sciatica present - ICD9: 724.2, 338.29, ICD10: M54.50, G89.29 Controlled. - GABAPENTIN 300 MG CAPSULE Jabari Murillo MD documented in this encounterMet[facility]06-08-[facility]21 Miscellaneous Notes* Telephone Encounter - Brooke Ramos RN - 01/26/2021 9:46 AM EDT Covid s/s after receiving 1st pfizer last . No known covid exposure. Patient unsure if she hascovid or experiencing side effects of vaccine. Symptoms improved today. Scheduled telephone visit with [facility] [employer] [facility]. Reason for Disposition [1] Has NOT completed COVID-19 vaccine series AND [2] COVID-19 exposure AND [2] AND [3] typical COVID-19 symptoms [1] COVID-19 infection suspected by caller or triager AND [2] mild symptoms (cough, fever, or others) AND [3] no complications or SOB Answer Assessment - Initial Assessment Questions 1. COVID-19 DIAGNOSIS No diagnoses 2. COVID-19 EXPOSURE: No 3. ONSET: 1 day after the covid vaccine 4. WORST SYMPTOM: Weakness today. Dry cough. 5. COUGH: Yes, worse when lays down. Non productive. 6. FEVER: No 7. RESPIRATORY STATUS: No SOB or wheeze. 8. [id number]: Better today than yesterday. Day after pfizer vaccine started with swollen sore arm (did not use icepack), terrible headache, body aches, fever, dry cough, nausea, vomiting, 2 blisters on corner of mouth, 2 blisters on buttock. Alternated advil with tylenol all weekend. 9. HIGH RISK DISEASE Chronic pain in body- see's pain management- fibromyalgia and maybe Rheumatoidarthritis. Obesity. 10. No. Hysterectomy. 11. OTHER SYMPTOMS: Had headache all weekend after vaccine. Cough, nausea, vomiting, body aches, fever, swollen arm. Is feeling a little stronger today- but still feeling weak. Answer Assessment - Initial Assessment Questions 1. MAIN CONCERN OR SYMPTOM: Weakness. Blisters on face- a couple- very sore- on corner of mouth- used alcohol on them yesterday- which helped. 2 blisters on buttock cheek- small. Left arm still swollen- smaller than it was. 2. VACCINE: 1st Pfizer vaccine received on . Today is day 5. 3. SYMPTOM ONSET: Monday morning was fine, but as day went on- started feeling bad- chills, body aches, arm swelled, nausea, vomited several times. 2 blisters developed on side of mouth, and 2 blisters on buttock that day. Bad headache all weekend. 4. SYMPTOM SEVERITY: Aches and pains gone except arm, still sore. Still a little weak. 5. FEVER: Not today. Alternated advil with tylenol all weekend. 6. PAST REACTIONS: Never 7. OTHER SYMPTOMS: Cough worse when lays down. No SOB. No fever. Weakness. Sore arm. Protocols used: CORONAVIRUS (COVID-19) VACCINE QUESTIONS AND [id number], CORONAVIRUS (COVID-19) DIAGNOSED OR [id number] documented in this encounterMet[facility]04-14-2021 NoteHNO ID: [id number] Author: Jesse Rutherford Service: ? Author Type: Nurse Infant Childcare Provider Type: Anesthesia Procedure Notes Filed: 12/02/2020 10:06 AM Note Text: ANESTHESIOLOGY PROCEDURE NOTE Airway General Information Procedure Start Time/Medication Administration: 12/02/2020 9:24 AM Patient location during procedure: OR Timeout Performed Pre-procedure: timeout performed Consent Obtained: Yes Patient identity confirmed: arm band and patient Staffing RAIL[employer]AY TRACTION LINE WORKER: Jesse Rutherford Performed by: PIPER Indications and Patient Condition Preoxygenated: yes Patient position: sniffing Manual In-Line Stabilization: No Difficult Mask: No Indications for airway management: anesthesia and airway protection anesthesia circuit Method: asleep Cricoid Pressure: No Final Airway Details Final airway type: endotracheal airway Final Endotracheal Airway: ETT Cuffed: yes Successful intubation technique: direct laryngoscopy Endotracheal tube insertion site: oral Blade: Candace Blade size: #3 ETT size (mm): 7.0 Measured from: lips Measurement (cm): 23 Placement verified by: capnometry Cormack-Lehane Classification: grade I - full view of glottis Number of attempts at approach: 1 Ventilation between attempts: BVM Failed airway: no Unrecognized esophageal intubation: no Airway not difficult SIGNATURE: Jesse Rutherford APRN.CRNA PATIENT NAME: Chica Shah DATE: December 02, 2020 TIME: 10:05 AM CSN: [id number] NoteHNO ID: [id number] Author: Jesse Rutherford Service: ? Author Type: Nurse Infant Childcare Provider Type: Anesthesia Procedure Notes Filed: 12/02/2020 9:51 AM Note Text: ANESTHESIOLOGY PROCEDURE NOTE PIV General Information Procedure Start Time/Medication Administration: 12/02/2020 9:45 AM Patient Location: OR Staffing RAILWAY TRACTION LINE WORKER: Viviana Kimball Performed by: PIPER Preparation Sterility Preparation: hand hygiene performed prior to procedure, surgical cap used, mask used, skin prep agent completely dried prior to procedure Site Prep: alcohol Procedure Details Indication: need for IV access Needle Size/Type: 20 gauge angiocath Orientation: Right Location: Hand Imaging Guidance Used: No SIGNATURE: Jesse Rutherford APRN.CRNA PATIENT NAME: Chica Shah DATE: December 02, 2020 TIME: 9:50 AM CSN: [id number] History of Past illness Narrative* Problem Noted Date Resolved Date Obesity, Class III, BMI >= 40 09/23/2020 COVID-19 virus infection 06/12/2020 021 Obesity, Class II, BMI 35-39.9 11/09/2018 0 01/21/2021 Displaced fracture of base o f fifth metacarpal bone of right hand with routine healing 02/11/2016 12/08/2016 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 05/19/2015 02/12/2018 Extensor intersection syndrome 12/30/2013 0 04/23/2015 Left arm swelling 12/30/2013 04/23/2015 Left arm pain 12/30/2013 04/23/2015 Upper back pain on right side 02/11/2012 Cholelithiasis 07/20/2011 11/09/2018 PVC (premature ventricular contraction) 07/20/20 11 04/23/2015 Morbid obesity 02/15/2011 07/25/2012 Knee pain 12/06/2010 06/12/2012 Sprain of left shoulder 12/06/2010 12/02/19 12 Rectal bleeding 11/17/2010 12/02/2011 Hot flashes due to surgical menopause 11/17/2010 12/02/2011 Mastalgia 11/17/2010 12/02/2011 Adopted 11/17/2010 11/09/2018 Generalized headaches 01/29/2010 12/02/2011 Acne 01/29/2010 12/02/2011 Migraine without aura, with intractable migraine, so stated, without mention of status migrainosus 09/02/2008 01/29/2010 Dysmetabolic syndrome X 03/14/2008 12/04/19 22 PAIN HIP JOINT 03/14/2008 04/23/2015 Last Assessment & Plan: Continues with nightly Rt sided hip pain. Unable to take NSAIDs due to gastric bypass. Takes tylenol prn. Encouraged to follow with Dr. Negro, or even ortho if significant worsening. Edema 12/17/2007 12/22/2008 Routine general medical exam ination at a health care facility 12/17/2007 02/28/2012 Unspecified essential hypertension 12/17/2007 06/12/2012 Obesity, unspecified 12/17/2007 07/25/2012 Hypothyroidism 11/17/2010 documented as of this encounter (statuses as of 12/03/2021) [facility] History of Past illness Narrative* Problem Noted Date Resolved Date Obesity, Class III, BMI >= 40 09/23/2020 COVID-19 virus infection 06/12/2020 021 Obesity, Class II, BMI 35-39.9 11/09/2018 0 01/21/2021 Displaced fracture of base o f fifth metacarpal bone of right hand with routine healing 02/11/2016 12/08/2016 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 05/19/2015 02/12/2018 Extensor intersection syndrome 12/30/2013 0 04/23/2015 Left arm swelling 12/30/2013 04/23/2015 Left arm pain 12/30/2013 04/23/2015 Upper back pain on right side 02/11/2012 Cholelithiasis 07/20/2011 11/09/2018 PVC (premature ventricular contraction) 07/20/20 11 04/23/2015 Morbid obesity 02/15/2011 07/25/2012 Knee pain 12/06/2010 06/12/2012 Sprain of left shoulder 12/06/2010 12/02/19 12 Rectal bleeding 11/17/2010 12/02/2011 Hot flashes due to surgical menopause 11/17/2010 12/02/2011 Mastalgia 11/17/2010 12/02/2011 Adopted 11/17/2010 11/09/2018 Generalized headaches 01/29/2010 12/02/2011 Acne 01/29/2010 12/02/2011 Migraine without aura, with intractable migraine, so stated, without mention of status migrainosus 09/02/2008 01/29/2010 Dysmetabolic syndrome X 03/14/2008 12/04/19 22 PAIN HIP JOINT 03/14/2008 04/23/2015 Last Assessment & Plan: Continues with nightly Rt sided hip pain. Unable to take NSAIDs due to gastric bypass. Takes tylenol prn. Encouraged to follow with Dr. Negro, or even ortho if significant worsening. Edema 12/17/2007 12/22/2008 Routine general medical exam ination at a health care facility 12/17/2007 02/28/2012 Unspecified essential hypertension 12/17/2007 06/12/2012 Obesity, unspecified 12/17/2007 07/25/2012 Hypothyroidism 11/17/2010 documented as of this encounter (statuses as of 12/04/2021) [facility] History of Past illness Narrative* Problem Noted Date Resolved Date Obesity, Class III, BMI >= 40 09/23/2020 COVID-19 virus infection 06/12/2020 021 Obesity, Class II, BMI 35-39.9 11/09/2018 0 01/21/2021 Displaced fracture of base o f fifth metacarpal bone of right hand with routine healing 02/11/2016 12/08/2016 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 05/19/2015 02/12/2018 Extensor intersection syndrome 12/30/2013 0 04/23/2015 Left arm swelling 12/30/2013 04/23/2015 Left arm pain 12/30/2013 04/23/2015 Upper back pain on right side 02/11/2012 Cholelithiasis 07/20/2011 11/09/2018 PVC (premature ventricular contraction) 07/20/20 11 04/23/2015 Morbid obesity 02/15/2011 07/25/2012 Knee pain 12/06/2010 06/12/2012 Sprain of left shoulder 12/06/2010 12/02/19 12 Rectal bleeding 11/17/2010 12/02/2011 Hot flashes due to surgical menopause 11/17/2010 12/02/2011 Mastalgia 11/17/2010 12/02/2011 Adopted 11/17/2010 11/09/2018 Generalized headaches 01/29/2010 12/02/2011 Acne 01/29/2010 12/02/2011 Migraine without aura, with intractable migraine, so stated, without mention of status migrainosus 09/02/2008 01/29/2010 Dysmetabolic syndrome X 03/14/2008 12/04/19 22 PAIN HIP JOINT 03/14/2008 04/23/2015 Last Assessment & Plan: Continues with nightly Rt sided hip pain. Unable to take NSAIDs due to gastric bypass. Takes tylenol prn. Encouraged to follow with Dr. Negro, or even ortho if significant worsening. Edema 12/17/2007 12/22/2008 Routine general medical exam ination at a health care facility 12/17/2007 02/28/2012 Unspecified essential hypertension 12/17/2007 06/12/2012 Obesity, unspecified 12/17/2007 07/25/2012 Hypothyroidism 11/17/2010 documented as of this encounter (statuses as of 12/08/2021) [facility] of Past illness Narrative* Problem Noted Date Resolved Date Obesity, Class III, BMI >= 40 09/23/2020 COVID-19 virus infection 06/12/2020 021 Obesity, Class II, BMI 35-39.9 11/09/2018 0 01/21/2021 Displaced fracture of base o f fifth metacarpal bone of right hand with routine healing 02/11/2016 12/08/2016 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 05/19/2015 02/12/2018 Extensor intersection syndrome 12/30/2013 0 04/23/2015 Left arm swelling 12/30/2013 04/23/2015 Left arm pain 12/30/2013 04/23/2015 Upper back pain on right side 02/11/2012 Cholelithiasis 07/20/2011 11/09/2018 PVC (premature ventricular contraction) 07/20/20 11 04/23/2015 Morbid obesity 02/15/2011 07/25/2012 Knee pain 12/06/2010 06/12/2012 Sprain of left shoulder 12/06/2010 12/02/19 12 Rectal bleeding 11/17/2010 12/02/2011 Hot flashes due to surgical menopause 11/17/2010 12/02/2011 Mastalgia 11/17/2010 12/02/2011 Adopted 11/17/2010 11/09/2018 Generalized headaches 01/29/2010 12/02/2011 Acne 01/29/2010 12/02/2011 Migraine without aura, with intractable migraine, so stated, without mention of status migrainosus 09/02/2008 01/29/2010 Dysmetabolic syndrome X 03/14/2008 12/04/19 22 PAIN HIP JOINT 03/14/2008 04/23/2015 Last Assessment & Plan: Continues with nightly Rt sided hip pain. Unable to take NSAIDs due to gastric bypass. Takes tylenol prn. Encouraged to follow with Dr. Negro, or even ortho if significant worsening. Edema 12/17/2007 12/22/2008 Routine general medical exam ination at a health care facility 12/17/2007 02/28/2012 Unspecified essential hypertension 12/17/2007 06/12/2012 Obesity, unspecified 12/17/2007 07/25/2012 Hypothyroidism 11/17/2010 documented as of this encounter (statuses as of 12/08/2021) [facility] History of Past illness Narrative* Problem Noted Date Resolved Date Obesity, Class III, BMI >= 40 09/23/2020 COVID-19 virus infection 06/12/2020 021 Obesity, Class II, BMI 35-39.9 11/09/2018 0 01/21/2021 Displaced fracture of base o f fifth metacarpal bone of right hand with routine healing 02/11/2016 12/08/2016 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 05/19/2015 02/12/2018 Extensor intersection syndrome 12/30/2013 0 04/23/2015 Left arm swelling 12/30/2013 04/23/2015 Left arm pain 12/30/2013 04/23/2015 Upper back pain on right side 02/11/2012 Cholelithiasis 07/20/2011 11/09/2018 PVC (premature ventricular contraction) 07/20/20 11 04/23/2015 Morbid obesity 02/15/2011 07/25/2012 Knee pain 12/06/2010 06/12/2012 Sprain of left shoulder 12/06/2010 12/02/19 12 Rectal bleeding 11/17/2010 12/02/2011 Hot flashes due to surgical menopause 11/17/2010 12/02/2011 Mastalgia 11/17/2010 12/02/2011 Adopted 11/17/2010 11/09/2018 Generalized headaches 01/29/2010 12/02/2011 Acne 01/29/2010 12/02/2011 Migraine without aura, with intractable migraine, so stated, without mention of status migrainosus 09/02/2008 01/29/2010 Dysmetabolic syndrome X 03/14/2008 12/04/19 22 PAIN HIP JOINT 03/14/2008 04/23/2015 Last Assessment & Plan: Continues with nightly Rt sided hip pain. Unable to take NSAIDs due to gastric bypass. Takes tylenol prn. Encouraged to follow with Dr. Negro, or even ortho if significant worsening. Edema 12/17/2007 12/22/2008 Routine general medical exam ination at a health care facility 12/17/2007 02/28/2012 Unspecified essential hypertension 12/17/2007 06/12/2012 Obesity, unspecified 12/17/2007 07/25/2012 Hypothyroidism 11/17/2010 documented as of this encounter (statuses as of 12/09/2021) [facility] of Past illness Narrative* Problem Noted Date Resolved Date Obesity, Class III, BMI >= 40 09/23/2020 COVID-19 virus infection 06/12/2020 021 Obesity, Class II, BMI 35-39.9 11/09/2018 0 01/21/2021 Displaced fracture of base o f fifth metacarpal bone of right hand with routine healing 02/11/2016 12/08/2016 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 05/19/2015 02/12/2018 Extensor intersection syndrome 12/30/2013 0 04/23/2015 Left arm swelling 12/30/2013 04/23/2015 Left arm pain 12/30/2013 04/23/2015 Upper back pain on right side 02/11/2012 Cholelithiasis 07/20/2011 11/09/2018 PVC (premature ventricular contraction) 07/20/20 11 04/23/2015 Morbid obesity 02/15/2011 07/25/2012 Knee pain 12/06/2010 06/12/2012 Sprain of left shoulder 12/06/2010 12/02/19 12 Rectal bleeding 11/17/2010 12/02/2011 Hot flashes due to surgical menopause 11/17/2010 12/02/2011 Mastalgia 11/17/2010 12/02/2011 Adopted 11/17/2010 11/09/2018 Generalized headaches 01/29/2010 12/02/2011 Acne 01/29/2010 12/02/2011 Migraine without aura, with intractable migraine, so stated, without mention of status migrainosus 09/02/2008 01/29/2010 Dysmetabolic syndrome X 03/14/2008 12/04/19 22 PAIN HIP JOINT 03/14/2008 04/23/2015 Last Assessment & Plan: Continues with nightly Rt sided hip pain. Unable to take NSAIDs due to gastric bypass. Takes tylenol prn. Encouraged to follow with Dr. Negro, or even ortho if significant worsening. Edema 12/17/2007 12/22/2008 Routine general medical exam ination at a health care facility 12/17/2007 02/28/2012 Unspecified essential hypertension 12/17/2007 06/12/2012 Obesity, unspecified 12/17/2007 07/25/2012 Hypothyroidism 11/17/2010 documented as of this encounter (statuses as of 12/20/2021) [facility]02-03-2021 History of Past illness Narrative* Problem Noted Date Resolved Date Obesity, Class III, BMI >= 40 09/23/2020 COVID-19 virus infection 06/12/2020 021 Obesity, Class II, BMI 35-39.9 11/09/2018 0 01/21/2021 Displaced fracture of base o f fifth metacarpal bone of right hand with routine healing 02/11/2016 12/08/2016 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 05/19/2015 02/12/2018 Extensor intersection syndrome 12/30/2013 0 04/23/2015 Left arm swelling 12/30/2013 04/23/2015 Left arm pain 12/30/2013 04/23/2015 Upper back pain on right side 02/11/2012 Cholelithiasis 07/20/2011 11/09/2018 PVC (premature ventricular contraction) 07/20/20 11 04/23/2015 Morbid obesity 02/15/2011 07/25/2012 Knee pain 12/06/2010 06/12/2012 Sprain of left shoulder 12/06/2010 12/02/19 12 Rectal bleeding 11/17/2010 12/02/2011 Hot flashes due to surgical menopause 11/17/2010 12/02/2011 Mastalgia 11/17/2010 12/02/2011 Adopted 11/17/2010 11/09/2018 Generalized headaches 01/29/2010 12/02/2011 Acne 01/29/2010 12/02/2011 Migraine without aura, with intractable migraine, so stated, without mention of status migrainosus 09/02/2008 01/29/2010 Dysmetabolic syndrome X 03/14/2008 12/04/19 22 PAIN HIP JOINT 03/14/2008 04/23/2015 Last Assessment & Plan: Continues with nightly Rt sided hip pain. Unable to take NSAIDs due to gastric bypass. Takes tylenol prn. Encouraged to follow with Dr. Negro, or even ortho if significant worsening. Edema 12/17/2007 12/22/2008 Routine general medical exam ination at a health care facility 12/17/2007 02/28/2012 Unspecified essential hypertension 12/17/2007 06/12/2012 Obesity, unspecified 12/17/2007 07/25/2012 Hypothyroidism 11/17/2010 documented as of this encounter (statuses as of 01/06/2022) [facility]21 History of Past illness Narrative* Problem Noted Date Resolved Date Obesity, Class III, BMI >= 40 09/23/2020 COVID-19 virus infection 06/12/2020 021 Obesity, Class II, BMI 35-39.9 11/09/2018 0 01/21/2021 Displaced fracture of base o f fifth metacarpal bone of right hand with routine healing 02/11/2016 12/08/2016 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 05/19/2015 02/12/2018 Extensor intersection syndrome 12/30/2013 0 04/23/2015 Left arm swelling 12/30/2013 04/23/2015 Left arm pain 12/30/2013 04/23/2015 Upper back pain on right side 02/11/2012 Cholelithiasis 07/20/2011 11/09/2018 PVC (premature ventricular contraction) 07/20/20 11 04/23/2015 Morbid obesity 02/15/2011 07/25/2012 Knee pain 12/06/2010 06/12/2012 Sprain of left shoulder 12/06/2010 12/02/19 12 Rectal bleeding 11/17/2010 12/02/2011 Hot flashes due to surgical menopause 11/17/2010 12/02/2011 Mastalgia 11/17/2010 12/02/2011 Adopted 11/17/2010 11/09/2018 Generalized headaches 01/29/2010 12/02/2011 Acne 01/29/2010 12/02/2011 Migraine without aura, with intractable migraine, so stated, without mention of status migrainosus 09/02/2008 01/29/2010 Dysmetabolic syndrome X 03/14/2008 12/04/19 22 PAIN HIP JOINT 03/14/2008 04/23/2015 Last Assessment & Plan: Continues with nightly Rt sided hip pain. Unable to take NSAIDs due to gastric bypass. Takes tylenol prn. Encouraged to follow with Dr. Negro, or even ortho if significant worsening. Edema 12/17/2007 12/22/2008 Routine general medical exam ination at a peoples hospital care facility 12/17/2007 02/28/2012 Unspecified essential hypertension 12/17/2007 06/12/2012 Obesity, unspecified 12/17/2007 07/25/2012 Hypothyroidism 11/17/2010 documented as of this encounter (statuses as of 02/26/2022) [facility]21 History of Past illness Narrative* Problem Noted Date Resolved Date Obesity, Class III, BMI >= 40 09/23/2020 COVID-19 virus infection 06/12/2020 021 Obesity, Class II, BMI 35-39.9 11/09/2018 0 01/21/2021 Displaced fracture of base o f fifth metacarpal bone of right hand with routine healing 02/11/2016 12/08/2016 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 05/19/2015 02/12/2018 Extensor intersection syndrome 12/30/2013 0 04/23/2015 Left arm swelling 12/30/2013 04/23/2015 Left arm pain 12/30/2013 04/23/2015 Upper back pain on right side 02/11/2012 Cholelithiasis 07/20/2011 11/09/2018 PVC (premature ventricular contraction) 07/20/20 11 04/23/2015 Morbid obesity 02/15/2011 07/25/2012 Knee pain 12/06/2010 06/12/2012 Sprain of left shoulder 12/06/2010 12/02/19 12 Rectal bleeding 11/17/2010 12/02/2011 Hot flashes due to surgical menopause 11/17/2010 12/02/2011 Mastalgia 11/17/2010 12/02/2011 Adopted 11/17/2010 11/09/2018 Generalized headaches 01/29/2010 12/02/2011 Acne 01/29/2010 12/02/2011 Migraine without aura, with intractable migraine, so stated, without mention of status migrainosus 09/02/2008 01/29/2010 Dysmetabolic syndrome X 03/14/2008 12/04/19 22 PAIN HIP JOINT 03/14/2008 04/23/2015 Last Assessment & Plan: Continues with nightly Rt sided hip pain. Unable to take NSAIDs due to gastric bypass. Takes tylenol prn. Encouraged to follow with Dr. Negro, or even ortho if significant worsening. Edema 12/17/2007 12/22/2008 Routine general medical exam ination at a health care facility 12/17/2007 02/28/2012 Unspecified essential hypertension 12/17/2007 06/12/2012 Obesity, unspecified 12/17/2007 07/25/2012 Hypothyroidism 11/17/2010 documented as of this encounter (statuses as of 03/10/2022) [facility]21 History of Past illness Narrative* Problem Noted Date Resolved Date Obesity, Class III, BMI >= 40 09/23/2020 COVID-19 virus infection 06/12/2020 021 Obesity, Class II, BMI 35-39.9 11/09/2018 0 01/21/2021 Displaced fracture of base o f fifth metacarpal bone of right hand with routine healing 02/11/2016 12/08/2016 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 05/19/2015 02/12/2018 Extensor intersection syndrome 12/30/2013 0 04/23/2015 Left arm swelling 12/30/2013 04/23/2015 Left arm pain 12/30/2013 04/23/2015 Upper back pain on right side 02/11/2012 Cholelithiasis 07/20/2011 11/09/2018 PVC (premature ventricular contraction) 07/20/20 11 04/23/2015 Morbid obesity 02/15/2011 07/25/2012 Knee pain 12/06/2010 06/12/2012 Sprain of left shoulder 12/06/2010 12/02/19 12 Rectal bleeding 11/17/2010 12/02/2011 Hot flashes due to surgical menopause 11/17/2010 12/02/2011 Mastalgia 11/17/2010 12/02/2011 Adopted 11/17/2010 11/09/2018 Generalized headaches 01/29/2010 12/02/2011 Acne 01/29/2010 12/02/2011 Migraine without aura, with intractable migraine, so stated, without mention of status migrainosus 09/02/2008 01/29/2010 Dysmetabolic syndrome X 03/14/2008 12/04/19 22 PAIN HIP JOINT 03/14/2008 04/23/2015 Last Assessment & Plan: Continues with nightly Rt sided hip pain. Unable to take NSAIDs due to gastric bypass. Takes tylenol prn. Encouraged to follow with Dr. Negro, or even ortho if significant worsening. Edema 12/17/2007 12/22/2008 Routine general medical exam ination at a health care facility 12/17/2007 02/28/2012 Unspecified essential hypertension 12/17/2007 06/12/2012 Obesity, unspecified 12/17/2007 07/25/2012 Hypothyroidism 11/17/2010 documented as of this encounter (statuses as of 03/15/2022) [facility]21 History of Past illness Narrative* Problem Noted Date Resolved Date Obesity, Class III, BMI >= 40 09/23/2020 COVID-19 virus infection 06/12/2020 021 Obesity, Class II, BMI 35-39.9 11/09/2018 0 01/21/2021 Displaced fracture of base o f fifth metacarpal bone of right hand with routine healing 02/11/2016 12/08/2016 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 05/19/2015 02/12/2018 Extensor intersection syndrome 12/30/2013 0 04/23/2015 Left arm swelling 12/30/2013 04/23/2015 Left arm pain 12/30/2013 04/23/2015 Upper back pain on right side 02/11/2012 Cholelithiasis 07/20/2011 11/09/2018 PVC (premature ventricular contraction) 07/20/20 11 04/23/2015 Morbid obesity 02/15/2011 07/25/2012 Knee pain 12/06/2010 06/12/2012 Sprain of left shoulder 12/06/2010 12/02/19 12 Rectal bleeding 11/17/2010 12/02/2011 Hot flashes due to surgical menopause 11/17/2010 12/02/2011 Mastalgia 11/17/2010 12/02/2011 Adopted 11/17/2010 11/09/2018 Generalized headaches 01/29/2010 12/02/2011 Acne 01/29/2010 12/02/2011 Migraine without aura, with intractable migraine, so stated, without mention of status migrainosus 09/02/2008 01/29/2010 Dysmetabolic syndrome X 03/14/2008 12/04/19 22 PAIN HIP JOINT 03/14/2008 04/23/2015 Last Assessment & Plan: Continues with nightly Rt sided hip pain. Unable to take NSAIDs due to gastric bypass. Takes tylenol prn. Encouraged to follow with Dr. Negro, or even ortho if significant worsening. Edema 12/17/2007 12/22/2008 Routine general medical exam ination at a health care facility 12/17/2007 02/28/2012 Unspecified essential hypertension 12/17/2007 06/12/2012 Obesity, unspecified 12/17/2007 07/25/2012 Hypothyroidism 11/17/2010 documented as of this encounter (statuses as of 04/20/2022) [facility]21 History of Past illness Narrative* Problem Noted Date Resolved Date Obesity, Class III, BMI >= 40 09/23/2020 COVID-19 virus infection 06/12/2020 021 Obesity, Class II, BMI 35-39.9 11/09/2018 0 01/21/2021 Displaced fracture of base o f fifth metacarpal bone of right hand with routine healing 02/11/2016 12/08/2016 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 05/19/2015 02/12/2018 Extensor intersection syndrome 12/30/2013 0 04/23/2015 Left arm swelling 12/30/2013 04/23/2015 Left arm pain 12/30/2013 04/23/2015 Upper back pain on right side 02/11/2012 Cholelithiasis 07/20/2011 11/09/2018 PVC (premature ventricular contraction) 07/20/20 11 04/23/2015 Morbid obesity 02/15/2011 07/25/2012 Knee pain 12/06/2010 06/12/2012 Sprain of left shoulder 12/06/2010 12/02/19 12 Rectal bleeding 11/17/2010 12/02/2011 Hot flashes due to surgical menopause 11/17/2010 12/02/2011 Mastalgia 11/17/2010 12/02/2011 Adopted 11/17/2010 11/09/2018 Generalized headaches 01/29/2010 12/02/2011 Acne 01/29/2010 12/02/2011 Migraine without aura, with intractable migraine, so stated, without mention of status migrainosus 09/02/2008 01/29/2010 Dysmetabolic syndrome X 03/14/2008 12/04/19 22 PAIN HIP JOINT 03/14/2008 04/23/2015 Last Assessment & Plan: Continues with nightly Rt sided hip pain. Unable to take NSAIDs due to gastric bypass. Takes tylenol prn. Encouraged to follow with Dr. Negro, or even ortho if significant worsening. Edema 12/17/2007 12/22/2008 Routine general medical exam ination at a health care facility 12/17/2007 02/28/2012 Unspecified essential hypertension 12/17/2007 06/12/2012 Obesity, unspecified 12/17/2007 07/25/2012 Hypothyroidism 11/17/2010 documented as of this encounter (statuses as of 04/26/2022) [facility]21 History of Past illness Narrative* Problem Noted Date Resolved Date Obesity, Class III, BMI >= 40 09/23/2020 COVID-19 virus infection 06/12/2020 021 Displaced fracture of base o f fifth metacarpal bone of right hand with routine healing 02/11/2016 12/08/2016 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 05/19/2015 02/12/2018 Extensor intersection syndrome 12/30/2013 0 04/23/2015 Left arm swelling 12/30/2013 04/23/2015 Left arm pain 12/30/2013 04/23/2015 Upper back pain on right side 02/11/2012 Cholelithiasis 07/20/2011 11/09/2018 PVC (premature ventricular contraction) 07/20/20 11 04/23/2015 Morbid obesity 02/15/2011 07/25/2012 Knee pain 12/06/2010 06/12/2012 Sprain of left shoulder 12/06/2010 12/02/19 12 Rectal bleeding 11/17/2010 12/02/2011 Hot flashes due to surgical menopause 11/17/2010 12/02/2011 Mastalgia 11/17/2010 12/02/2011 Adopted 11/17/2010 11/09/2018 Generalized headaches 01/29/2010 12/02/2011 Acne 01/29/2010 12/02/2011 Migraine without aura, with intractable migraine, so stated, without mention of status migrainosus 09/02/2008 01/29/2010 Dysmetabolic syndrome X 03/14/2008 12/04/19 22 PAIN HIP JOINT 03/14/2008 04/23/2015 Last Assessment & Plan: Continues with nightly Rt sided hip pain. Unable to take NSAIDs due to gastric bypass. Takes tylenol prn. Encouraged to follow with Dr. Negro, or even ortho if significant worsening. Edema 12/17/2007 12/22/2008 Routine general medical exam ination at a health care facility 12/17/2007 02/28/2012 Unspecified essential hypertension 12/17/2007 06/12/2012 Obesity, unspecified 12/17/2007 07/25/2012 Hypothyroidism 11/17/2010 documented as of this encounter (statuses as of 06/13/2022) [facility]21 History of Past illness Narrative* Problem Noted Date Resolved Date Obesity, Class III, BMI >= 40 09/23/2020 COVID-19 virus infection 06/12/2020 021 Displaced fracture of base o f fifth metacarpal bone of right hand with routine healing 02/11/2016 12/08/2016 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 05/19/2015 02/12/2018 Extensor intersection syndrome 12/30/2013 0 04/23/2015 Left arm swelling 12/30/2013 04/23/2015 Left arm pain 12/30/2013 04/23/2015 Upper back pain on right side 02/11/2012 Cholelithiasis 07/20/2011 11/09/2018 PVC (premature ventricular contraction) 07/20/20 11 04/23/2015 Morbid obesity 02/15/2011 07/25/2012 Knee pain 12/06/2010 06/12/2012 Sprain of left shoulder 12/06/2010 12/02/19 12 Rectal bleeding 11/17/2010 12/02/2011 Hot flashes due to surgical menopause 11/17/2010 12/02/2011 Mastalgia 11/17/2010 12/02/2011 Adopted 11/17/2010 11/09/2018 Generalized headaches 01/29/2010 12/02/2011 Acne 01/29/2010 12/02/2011 Migraine without aura, with intractable migraine, so stated, without mention of status migrainosus 09/02/2008 01/29/2010 Dysmetabolic syndrome X 03/14/2008 12/04/19 22 PAIN HIP JOINT 03/14/2008 04/23/2015 Last Assessment & Plan: Continues with nightly Rt sided hip pain. Unable to take NSAIDs due to gastric bypass. Takes tylenol prn. Encouraged to follow with Dr. Negro, or even ortho if significant worsening. Edema 12/17/2007 12/22/2008 Routine general medical exam ination at a health care facility 12/17/2007 02/28/2012 Unspecified essential hypertension 12/17/2007 06/12/2012 Obesity, unspecified 12/17/2007 07/25/2012 Hypothyroidism 11/17/2010 documented as of this encounter (statuses as of 07/22/2022) [facility]21 History of Past illness Narrative* Problem Noted Date Resolved Date Obesity, Class III, BMI >= 40 09/23/2020 COVID-19 virus infection 06/12/2020 021 Displaced fracture of base o f fifth metacarpal bone of right hand with routine healing 02/11/2016 12/08/2016 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 05/19/2015 02/12/2018 Extensor intersection syndrome 12/30/2013 0 04/23/2015 Left arm swelling 12/30/2013 04/23/2015 Left arm pain 12/30/2013 04/23/2015 Upper back pain on right side 02/11/2012 Cholelithiasis 07/20/2011 11/09/2018 PVC (premature ventricular contraction) 07/20/20 11 04/23/2015 Morbid obesity 02/15/2011 07/25/2012 Knee pain 12/06/2010 06/12/2012 Sprain of left shoulder 12/06/2010 12/02/19 12 Rectal bleeding 11/17/2010 12/02/2011 Hot flashes due to surgical menopause 11/17/2010 12/02/2011 Mastalgia 11/17/2010 12/02/2011 Adopted 11/17/2010 11/09/2018 Generalized headaches 01/29/2010 12/02/2011 Acne 01/29/2010 12/02/2011 Migraine without aura, with intractable migraine, so stated, without mention of status migrainosus 09/02/2008 01/29/2010 Dysmetabolic syndrome X 03/14/2008 12/04/19 22 PAIN HIP JOINT 03/14/2008 04/23/2015 Last Assessment & Plan: Continues with nightly Rt sided hip pain. Unable to take NSAIDs due to gastric bypass. Takes tylenol prn. Encouraged to follow with Dr. Negro, or even ortho if significant worsening. Edema 12/17/2007 12/22/2008 Routine general medical exam ination at a health care facility 12/17/2007 02/28/2012 Unspecified essential hypertension 12/17/2007 06/12/2012 Obesity, unspecified 12/17/2007 07/25/2012 Hypothyroidism 11/17/2010 documented as of this encounter (statuses as of 08/01/2022) [facility] History of Past illness Narrative* Problem Noted Date Resolved Date Obesity, Class III, BMI >= 40 09/23/2020 COVID-19 virus infection 06/12/2020 021 Displaced fracture of base o f fifth metacarpal bone of right hand with routine healing 02/11/2016 12/08/2016 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 05/19/2015 02/12/2018 Extensor intersection syndrome 12/30/2013 0 04/23/2015 Left arm swelling 12/30/2013 04/23/2015 Left arm pain 12/30/2013 04/23/2015 Upper back pain on right side 02/11/2012 Cholelithiasis 07/20/2011 11/09/2018 PVC (premature ventricular contraction) 07/20/20 11 04/23/2015 Morbid obesity 02/15/2011 07/25/2012 Knee pain 12/06/2010 06/12/2012 Sprain of left shoulder 12/06/2010 12/02/19 12 Rectal bleeding 11/17/2010 12/02/2011 Hot flashes due to surgical menopause 11/17/2010 12/02/2011 Mastalgia 11/17/2010 12/02/2011 Adopted 11/17/2010 11/09/2018 Generalized headaches 01/29/2010 12/02/2011 Acne 01/29/2010 12/02/2011 Migraine without aura, with intractable migraine, so stated, without mention of status migrainosus 09/02/2008 01/29/2010 Dysmetabolic syndrome X 03/14/2008 12/04/19 22 PAIN HIP JOINT 03/14/2008 04/23/2015 Last Assessment & Plan: Continues with nightly Rt sided hip pain. Unable to take NSAIDs due to gastric bypass. Takes tylenol prn. Encouraged to follow with Dr. Negro, or even ortho if significant worsening. Edema 12/17/2007 12/22/2008 Routine general medical exam ination at a health care facility 12/17/2007 02/28/2012 Unspecified essential hypertension 12/17/2007 06/12/2012 Obesity, unspecified 12/17/2007 07/25/2012 Hypothyroidism 11/17/2010 documented as of this encounter (statuses as of 09/02/2022) [facility] History of Past illness Narrative* Problem Noted Date Resolved Date Obesity, Class III, BMI >= 40 09/23/2020 COVID-19 virus infection 06/12/2020 021 Displaced fracture of base o f fifth metacarpal bone of right hand with routine healing 02/11/2016 12/08/2016 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 05/19/2015 02/12/2018 Extensor intersection syndrome 12/30/2013 0 04/23/2015 Left arm swelling 12/30/2013 04/23/2015 Left arm pain 12/30/2013 04/23/2015 Upper back pain on right side 02/11/2012 Cholelithiasis 07/20/2011 11/09/2018 PVC (premature ventricular contraction) 07/20/20 11 04/23/2015 Morbid obesity 02/15/2011 07/25/2012 Knee pain 12/06/2010 06/12/2012 Sprain of left shoulder 12/06/2010 12/02/19 12 Rectal bleeding 11/17/2010 12/02/2011 Hot flashes due to surgical menopause 11/17/2010 12/02/2011 Mastalgia 11/17/2010 12/02/2011 Adopted 11/17/2010 11/09/2018 Generalized headaches 01/29/2010 12/02/2011 Acne 01/29/2010 12/02/2011 Migraine without aura, with intractable migraine, so stated, without mention of status migrainosus 09/02/2008 01/29/2010 Dysmetabolic syndrome X 03/14/2008 12/04/19 22 PAIN HIP JOINT 03/14/2008 04/23/2015 Last Assessment & Plan: Continues with nightly Rt sided hip pain. Unable to take NSAIDs due to gastric bypass. Takes tylenol prn. Encouraged to follow with Dr. Negro, or even ortho if significant worsening. Edema 12/17/2007 12/22/2008 Routine general medical exam ination at a health care facility 12/17/2007 02/28/2012 Unspecified essential hypertension 12/17/2007 06/12/2012 Obesity, unspecified 12/17/2007 07/25/2012 Hypothyroidism 11/17/2010 documented as of this encounter (statuses as of 09/29/2022) [facility] History of Past illness Narrative* Problem Noted Date Resolved Date Obesity, Class III, BMI >= 40 09/23/2020 COVID-19 virus infection 06/12/2020 021 Displaced fracture of base o f fifth metacarpal bone of right hand with routine healing 02/11/2016 12/08/2016 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 05/19/2015 02/12/2018 Extensor intersection syndrome 12/30/2013 0 04/23/2015 Left arm swelling 12/30/2013 04/23/2015 Left arm pain 12/30/2013 04/23/2015 Upper back pain on right side 02/11/2012 Cholelithiasis 07/20/2011 11/09/2018 PVC (premature ventricular contraction) 07/20/20 11 04/23/2015 Morbid obesity 02/15/2011 07/25/2012 Knee pain 12/06/2010 06/12/2012 Sprain of left shoulder 12/06/2010 12/02/19 12 Rectal bleeding 11/17/2010 12/02/2011 Hot flashes due to surgical menopause 11/17/2010 12/02/2011 Mastalgia 11/17/2010 12/02/2011 Adopted 11/17/2010 11/09/2018 Generalized headaches 01/29/2010 12/02/2011 Acne 01/29/2010 12/02/2011 Migraine without aura, with intractable migraine, so stated, without mention of status migrainosus 09/02/2008 01/29/2010 Dysmetabolic syndrome X 03/14/2008 12/04/19 22 PAIN HIP JOINT 03/14/2008 04/23/2015 Last Assessment & Plan: Continues with nightly Rt sided hip pain. Unable to take NSAIDs due to gastric bypass. Takes tylenol prn. Encouraged to follow with Dr. Negro, or even ortho if significant worsening. Edema 12/17/2007 12/22/2008 Routine general medical exam ination at a health care facility 12/17/2007 02/28/2012 Unspecified essential hypertension 12/17/2007 06/12/2012 Obesity, unspecified 12/17/2007 07/25/2012 Hypothyroidism 11/17/2010 documented as of this encounter (statuses as of 10/24/2022) [facility] History of Past illness Narrative* Problem Noted Date Resolved Date Obesity, Class III, BMI >= 40 09/23/2020 COVID-19 virus infection 06/12/2020 021 Displaced fracture of base o f fifth metacarpal bone of right hand with routine healing 02/11/2016 12/08/2016 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 05/19/2015 02/12/2018 Extensor intersection syndrome 12/30/2013 0 04/23/2015 Left arm swelling 12/30/2013 04/23/2015 Left arm pain 12/30/2013 04/23/2015 Upper back pain on right side 02/11/2012 Cholelithiasis 07/20/2011 11/09/2018 PVC (premature ventricular contraction) 07/20/20 11 04/23/2015 Morbid obesity 02/15/2011 07/25/2012 Knee pain 12/06/2010 06/12/2012 Sprain of left shoulder 12/06/2010 12/02/19 12 Rectal bleeding 11/17/2010 12/02/2011 Hot flashes due to surgical menopause 11/17/2010 12/02/2011 Mastalgia 11/17/2010 12/02/2011 Adopted 11/17/2010 11/09/2018 Generalized headaches 01/29/2010 12/02/2011 Acne 01/29/2010 12/02/2011 Migraine without aura, with intractable migraine, so stated, without mention of status migrainosus 09/02/2008 01/29/2010 Dysmetabolic syndrome X 03/14/2008 12/04/19 22 PAIN HIP JOINT 03/14/2008 04/23/2015 Last Assessment & Plan: Continues with nightly Rt sided hip pain. Unable to take NSAIDs due to gastric bypass. Takes tylenol prn. Encouraged to follow with Dr. Negro, or even ortho if significant worsening. Edema 12/17/2007 12/22/2008 Routine general medical exam ination at a health care facility 12/17/2007 02/28/2012 Unspecified essential hypertension 12/17/2007 06/12/2012 Obesity, unspecified 12/17/2007 07/25/2012 Hypothyroidism 11/17/2010 documented as of this encounter (statuses as of 11/18/2022) [facility] History of Past illness Narrative* Problem Noted Date Resolved Date Obesity, Class III, BMI >= 40 09/23/2020 COVID-19 virus infection 06/12/2020 021 Displaced fracture of base o f fifth metacarpal bone of right hand with routine healing 02/11/2016 12/08/2016 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 05/19/2015 02/12/2018 Extensor intersection syndrome 12/30/2013 0 04/23/2015 Left arm swelling 12/30/2013 04/23/2015 Left arm pain 12/30/2013 04/23/2015 Upper back pain on right side 02/11/2012 Cholelithiasis 07/20/2011 11/09/2018 PVC (premature ventricular contraction) 07/20/20 11 04/23/2015 Morbid obesity 02/15/2011 07/25/2012 Knee pain 12/06/2010 06/12/2012 Sprain of left shoulder 12/06/2010 12/02/19 12 Rectal bleeding 11/17/2010 12/02/2011 Hot flashes due to surgical menopause 11/17/2010 12/02/2011 Mastalgia 11/17/2010 12/02/2011 Adopted 11/17/2010 11/09/2018 Generalized headaches 01/29/2010 12/02/2011 Acne 01/29/2010 12/02/2011 Migraine without aura, with intractable migraine, so stated, without mention of status migrainosus 09/02/2008 01/29/2010 Dysmetabolic syndrome X 03/14/2008 12/04/19 22 PAIN HIP JOINT 03/14/2008 04/23/2015 Last Assessment & Plan: Continues with nightly Rt sided hip pain. Unable to take NSAIDs due to gastric bypass. Takes tylenol prn. Encouraged to follow with Dr. Negro, or even ortho if significant worsening. Edema 12/17/2007 12/22/2008 Routine general medical exam ination at a health care facility 12/17/2007 02/28/2012 Unspecified essential hypertension 12/17/2007 06/12/2012 Obesity, unspecified 12/17/2007 07/25/2012 Hypothyroidism 11/17/2010 documented as of this encounter (statuses as of 11/23/2022) [facility]02-03-[facility]21 History of Past illness Narrative* Problem Noted Date Resolved Date Obesity, Class III, BMI >= 40 09/23/2020 COVID-19 virus infection 06/12/2020 021 Displaced fracture of base o f fifth metacarpal bone of right hand with routine healing 02/11/2016 12/08/2016 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 05/19/2015 02/12/2018 Extensor intersection syndrome 12/30/2013 0 04/23/2015 Left arm swelling 12/30/2013 04/23/2015 Left arm pain 12/30/2013 04/23/2015 Upper back pain on right side 02/11/2012 Cholelithiasis 07/20/2011 11/09/2018 PVC (premature ventricular contraction) 07/20/20 11 04/23/2015 Morbid obesity 02/15/2011 07/25/2012 Knee pain 12/06/2010 06/12/2012 Sprain of left shoulder 12/06/2010 12/02/19 12 Rectal bleeding 11/17/2010 12/02/2011 Hot flashes due to surgical menopause 11/17/2010 12/02/2011 Mastalgia 11/17/2010 12/02/2011 Adopted 11/17/2010 11/09/2018 Generalized headaches 01/29/2010 12/02/2011 Acne 01/29/2010 12/02/2011 Migraine without aura, with intractable migraine, so stated, without mention of status migrainosus 09/02/2008 01/29/2010 Dysmetabolic syndrome X 03/14/2008 12/04/19 22 PAIN HIP JOINT 03/14/2008 04/23/2015 Last Assessment & Plan: Continues with nightly Rt sided hip pain. Unable to take NSAIDs due to gastric bypass. Takes tylenol prn. Encouraged to follow with Dr. Negro, or even ortho if significant worsening. Edema 12/17/2007 12/22/2008 Routine general medical exam ination at a health care facility 12/17/2007 02/28/2012 Unspecified essential hypertension 12/17/2007 06/12/2012 Obesity, unspecified 12/17/2007 07/25/2012 Hypothyroidism 11/17/2010 documented as of this encounter (statuses as of 11/25/2022) [facility]21 History of Past illness Narrative* Problem Noted Date Resolved Date Obesity, Class III, BMI >= 40 09/23/2020 COVID-19 virus infection 06/12/2020 021 Displaced fracture of base o f fifth metacarpal bone of right hand with routine healing 02/11/2016 12/08/2016 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 05/19/2015 02/12/2018 Extensor intersection syndrome 12/30/2013 0 04/23/2015 Left arm swelling 12/30/2013 04/23/2015 Left arm pain 12/30/2013 04/23/2015 Upper back pain on right side 02/11/2012 Cholelithiasis 07/20/2011 11/09/2018 PVC (premature ventricular contraction) 07/20/20 11 04/23/2015 Morbid obesity 02/15/2011 07/25/2012 Knee pain 12/06/2010 06/12/2012 Sprain of left shoulder 12/06/2010 12/02/19 12 Rectal bleeding 11/17/2010 12/02/2011 Hot flashes due to surgical menopause 11/17/2010 12/02/2011 Mastalgia 11/17/2010 12/02/2011 Adopted 11/17/2010 11/09/2018 Generalized headaches 01/29/2010 12/02/2011 Acne 01/29/2010 12/02/2011 Migraine without aura, with intractable migraine, so stated, without mention of status migrainosus 09/02/2008 01/29/2010 Dysmetabolic syndrome X 03/14/2008 12/04/19 22 PAIN HIP JOINT 03/14/2008 04/23/2015 Last Assessment & Plan: Continues with nightly Rt sided hip pain. Unable to take NSAIDs due to gastric bypass. Takes tylenol prn. Encouraged to follow with Dr. Negro, or even ortho if significant worsening. Edema 12/17/2007 12/22/2008 Routine general medical exam ination at a health care facility 12/17/2007 02/28/2012 Unspecified essential hypertension 12/17/2007 06/12/2012 Obesity, unspecified 12/17/2007 07/25/2012 Hypothyroidism 11/17/2010 documented as of this encounter (statuses as of 02/10/2023) [facility]21 History of Past illness Narrative* Problem Noted Date Resolved Date Obesity, Class III, BMI >= 40 09/23/2020 COVID-19 virus infection 06/12/2020 021 Displaced fracture of base o f fifth metacarpal bone of right hand with routine healing 02/11/2016 12/08/2016 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 05/19/2015 02/12/2018 Extensor intersection syndrome 12/30/2013 0 04/23/2015 Left arm swelling 12/30/2013 04/23/2015 Left arm pain 12/30/2013 04/23/2015 Upper back pain on right side 02/11/2012 Cholelithiasis 07/20/2011 11/09/2018 PVC (premature ventricular contraction) 07/20/20 11 04/23/2015 Morbid obesity 02/15/2011 07/25/2012 Knee pain 12/06/2010 06/12/2012 Sprain of left shoulder 12/06/2010 12/02/19 12 Rectal bleeding 11/17/2010 12/02/2011 Hot flashes due to surgical menopause 11/17/2010 12/02/2011 Mastalgia 11/17/2010 12/02/2011 Adopted 11/17/2010 11/09/2018 Generalized headaches 01/29/2010 12/02/2011 Acne 01/29/2010 12/02/2011 Migraine without aura, with intractable migraine, so stated, without mention of status migrainosus 09/02/2008 01/29/2010 Dysmetabolic syndrome X 03/14/2008 12/04/19 22 PAIN HIP JOINT 03/14/2008 04/23/2015 Last Assessment & Plan: Continues with nightly Rt sided hip pain. Unable to take NSAIDs due to gastric bypass. Takes tylenol prn. Encouraged to follow with Dr. Negro, or even ortho if significant worsening. Edema 12/17/2007 12/22/2008 Routine general medical exam ination at a health care facility 12/17/2007 02/28/2012 Unspecified essential hypertension 12/17/2007 06/12/2012 Obesity, unspecified 12/17/2007 07/25/2012 Hypothyroidism 11/17/2010 documented as of this encounter (statuses as of 02/16/2023) [facility]21 History of Past illness Narrative* Problem Noted Date Diagnosed Date Resolved Date Obesity, Class III, BMI >= 40 09/23/2020 05/28/2021 COVID-19 virus infection 06/12/202003/2021 Displaced fracture of base o f fifth metacarpal bone of right hand with routine healing 02/11/2016 12/08/2016 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 05/19/2015 02/12/2018 Extensor intersection syndrome 12/30/2013 04/23/2015 Left arm swelling 12/30/2013 04/23/2015 Left arm pain 12/30/2013 04/23/2015 Upper back pain on right side 02/11/2012 06/12/2012 Cholelithiasis 07/20/2011 11/09/2018 PVC (premature ventricular contraction) 07/20/2011 04/23/2015 Morbid obesity 02/15/2011 07/25/2012 Knee pain 12/06/2010 06/12/2012 Sprain of left shoulder 12/06/201011/19 Rectal bleeding 11/17/2010 12/02/2011 Hot flashes due to surgical menopause 11/17/2010 12/02/2011 Mastalgia 11/17/2010 12/02/2011 Adopted 11/17/2010 11/09/2018 Generalized headaches 01/29/20102011 Acne 01/29/2010 12/02/2011 Migraine without aura, with intractable migraine, so stated, without mention of status migrainosus 09/02/2008 01/29/2010 Dysmetabolic syndrome X 03/14/200811/19 PAIN HIP JOINT 03/14/2008 04/23/2015 Last Assessment & Plan: Continues with nightly Rt sided hip pain. Unable to take NSAIDs due to gastric bypass. Takes tylenol prn. Encouraged to follow with Dr. Negro, or even ortho if significant worsening. Edema 12/17/2007 12/22/2008 Routine general medical exam ination at a health care facility 12/17/2007 02/28/2012 Unspecified essential hypertension 12/17/2007 06/12/2012 Obesity, unspecified 12/17/2007 012 Hypothyroidism 11/17/2010 documented as of this encounter (statuses as of 04/04/2023) [facility]21 History of Past illness Narrative* Problem Noted Date Diagnosed Date Resolved Date Obesity, Class III, BMI >= 40 09/23/2020 05/28/2021 COVID-19 virus infection 06/12/202003/2021 Displaced fracture of base o f fifth metacarpal bone of right hand with routine healing 02/11/2016 12/08/2016 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 05/19/2015 02/12/2018 Extensor intersection syndrome 12/30/2013 04/23/2015 Left arm swelling 12/30/2013 04/23/2015 Left arm pain 12/30/2013 04/23/2015 Upper back pain on right side 02/11/2012 06/12/2012 Cholelithiasis 07/20/2011 11/09/2018 PVC (premature ventricular contraction) 07/20/2011 04/23/2015 Morbid obesity 02/15/2011 07/25/2012 Knee pain 12/06/2010 06/12/2012 Sprain of left shoulder 12/06/201011/19 Rectal bleeding 11/17/2010 12/02/2011 Hot flashes due to surgical menopause 11/17/2010 12/02/2011 Mastalgia 11/17/2010 12/02/2011 Adopted 11/17/2010 11/09/2018 Generalized headaches 01/29/20102011 Acne 01/29/2010 12/02/2011 Migraine without aura, with intractable migraine, so stated, without mention of status migrainosus 09/02/2008 01/29/2010 Dysmetabolic syndrome X 03/14/200811/19 PAIN HIP JOINT 03/14/2008 04/23/2015 Last Assessment & Plan: Continues with nightly Rt sided hip pain. Unable to take NSAIDs due to gastric bypass. Takes tylenol prn. Encouraged to follow with Dr. Negro, or even ortho if significant worsening. Edema 12/17/2007 12/22/2008 Routine general medical exam ination at a health care facility 12/17/2007 02/28/2012 Unspecified essential hypertension 12/17/2007 06/12/2012 Obesity, unspecified 12/17/2007 012 Hypothyroidism 11/17/2010 documented as of this encounter (statuses as of 04/05/2023) [facility]21 History of Past illness Narrative* Problem Noted Date Diagnosed Date Resolved Date Obesity, Class III, BMI >= 40 09/23/2020 05/28/2021 COVID-19 virus infection 06/12/202003/2021 Displaced fracture of base o f fifth metacarpal bone of right hand with routine healing 02/11/2016 12/08/2016 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 05/19/2015 02/12/2018 Extensor intersection syndrome 12/30/2013 04/23/2015 Left arm swelling 12/30/2013 04/23/2015 Left arm pain 12/30/2013 04/23/2015 Upper back pain on right side 02/11/2012 06/12/2012 Cholelithiasis 07/20/2011 11/09/2018 PVC (premature ventricular contraction) 07/20/2011 04/23/2015 Morbid obesity 02/15/2011 07/25/2012 Knee pain 12/06/2010 06/12/2012 Sprain of left shoulder 12/06/201011/19 Rectal bleeding 11/17/2010 12/02/2011 Hot flashes due to surgical menopause 11/17/2010 12/02/2011 Mastalgia 11/17/2010 12/02/2011 Adopted 11/17/2010 11/09/2018 Generalized headaches 01/29/20102011 Acne 01/29/2010 12/02/2011 Migraine without aura, with intractable migraine, so stated, without mention of status migrainosus 09/02/2008 01/29/2010 Dysmetabolic syndrome X 03/14/200811/19 PAIN HIP JOINT 03/14/2008 04/23/2015 Last Assessment & Plan: Continues with nightly Rt sided hip pain. Unable to take NSAIDs due to gastric bypass. Takes tylenol prn. Encouraged to follow with Dr. Negro, or even ortho if significant worsening. Edema 12/17/2007 12/22/2008 Routine general medical exam ination at a health care facility 12/17/2007 02/28/2012 Unspecified essential hypertension 12/17/2007 06/12/2012 Obesity, unspecified 12/17/2007 012 Hypothyroidism 11/17/2010 documented as of this encounter (statuses as of 04/11/2023) [facility]21 History of Past illness Narrative* Problem Noted Date Diagnosed Date Resolved Date Obesity, Class III, BMI >= 40 09/23/2020 05/28/2021 COVID-19 virus infection 06/12/202003/2021 Displaced fracture of base o f fifth metacarpal bone of right hand with routine healing 02/11/2016 12/08/2016 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 05/19/2015 02/12/2018 Extensor intersection syndrome 12/30/2013 04/23/2015 Left arm swelling 12/30/2013 04/23/2015 Left arm pain 12/30/2013 04/23/2015 Upper back pain on right side 02/11/2012 06/12/2012 Cholelithiasis 07/20/2011 11/09/2018 PVC (premature ventricular contraction) 07/20/2011 04/23/2015 Morbid obesity 02/15/2011 07/25/2012 Knee pain 12/06/2010 06/12/2012 Sprain of left shoulder 12/06/201011/19 Rectal bleeding 11/17/2010 12/02/2011 Hot flashes due to surgical menopause 11/17/2010 12/02/2011 Mastalgia 11/17/2010 12/02/2011 Adopted 11/17/2010 11/09/2018 Generalized headaches 01/29/20102011 Acne 01/29/2010 12/02/2011 Migraine without aura, with intractable migraine, so stated, without mention of status migrainosus 09/02/2008 01/29/2010 Dysmetabolic syndrome X 03/14/200811/19 PAIN HIP JOINT 03/14/2008 04/23/2015 Last Assessment & Plan: Continues with nightly Rt sided hip pain. Unable to take NSAIDs due to gastric bypass. Takes tylenol prn. Encouraged to follow with Dr. Negro, or even ortho if significant worsening. Edema 12/17/2007 12/22/2008 Routine general medical exam ination at a health care facility 12/17/2007 02/28/2012 Unspecified essential hypertension 12/17/2007 06/12/2012 Obesity, unspecified 12/17/2007 012 Hypothyroidism 11/17/2010 documented as of this encounter (statuses as of 04/20/2023) [facility]21 History of Past illness Narrative* Problem Noted Date Diagnosed Date Resolved Date Obesity, Class III, BMI >= 40 09/23/2020 05/28/2021 COVID-19 virus infection 06/12/202003/2021 Displaced fracture of base o f fifth metacarpal bone of right hand with routine healing 02/11/2016 12/08/2016 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 05/19/2015 02/12/2018 Extensor intersection syndrome 12/30/2013 04/23/2015 Left arm swelling 12/30/2013 04/23/2015 Left arm pain 12/30/2013 04/23/2015 Upper back pain on right side 02/11/2012 06/12/2012 Cholelithiasis 07/20/2011 11/09/2018 PVC (premature ventricular contraction) 07/20/2011 04/23/2015 Morbid obesity 02/15/2011 07/25/2012 Knee pain 12/06/2010 06/12/2012 Sprain of left shoulder 12/06/201011/19 Rectal bleeding 11/17/2010 12/02/2011 Hot flashes due to surgical menopause 11/17/2010 12/02/2011 Mastalgia 11/17/2010 12/02/2011 Adopted 11/17/2010 11/09/2018 Generalized headaches 01/29/20102011 Acne 01/29/2010 12/02/2011 Migraine without aura, with intractable migraine, so stated, without mention of status migrainosus 09/02/2008 01/29/2010 Dysmetabolic syndrome X 03/14/200811/19 PAIN HIP JOINT 03/14/2008 04/23/2015 Last Assessment & Plan: Continues with nightly Rt sided hip pain. Unable to take NSAIDs due to gastric bypass. Takes tylenol prn. Encouraged to follow with Dr. Negro, or even ortho if significant worsening. Edema 12/17/2007 12/22/2008 Routine general medical exam ination at a health care facility 12/17/2007 02/28/2012 Unspecified essential hypertension 12/17/2007 06/12/2012 Obesity, unspecified 12/17/2007 012 Hypothyroidism 11/17/2010 documented as of this encounter (statuses as of 04/27/2023) [facility]21 History of Past illness Narrative* Problem Noted Date Diagnosed Date Resolved Date Obesity, Class III, BMI >= 40 09/23/2020 05/28/2021 COVID-19 virus infection 06/12/202003/2021 Displaced fracture of base o f fifth metacarpal bone of right hand with routine healing 02/11/2016 12/08/2016 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 05/19/2015 02/12/2018 Extensor intersection syndrome 12/30/2013 04/23/2015 Left arm swelling 12/30/2013 04/23/2015 Left arm pain 12/30/2013 04/23/2015 Upper back pain on right side 02/11/2012 06/12/2012 Cholelithiasis 07/20/2011 11/09/2018 PVC (premature ventricular contraction) 07/20/2011 04/23/2015 Morbid obesity 02/15/2011 07/25/2012 Knee pain 12/06/2010 06/12/2012 Sprain of left shoulder 12/06/201011/19 Rectal bleeding 11/17/2010 12/02/2011 Hot flashes due to surgical menopause 11/17/2010 12/02/2011 Mastalgia 11/17/2010 12/02/2011 Adopted 11/17/2010 11/09/2018 Generalized headaches 01/29/20102011 Acne 01/29/2010 12/02/2011 Migraine without aura, with intractable migraine, so stated, without mention of status migrainosus 09/02/2008 01/29/2010 Dysmetabolic syndrome X 03/14/200811/19 PAIN HIP JOINT 03/14/2008 04/23/2015 Last Assessment & Plan: Continues with nightly Rt sided hip pain. Unable to take NSAIDs due to gastric bypass. Takes tylenol prn. Encouraged to follow with Dr. Negro, or even ortho if significant worsening. Edema 12/17/2007 12/22/2008 Routine general medical exam ination at a health care facility 12/17/2007 02/28/2012 Unspecified essential hypertension 12/17/2007 06/12/2012 Obesity, unspecified 12/17/2007 012 Hypothyroidism 11/17/2010 documented as of this encounter (statuses as of 05/05/2023) [facility]21 History of Past illness Narrative* Problem Noted Date Diagnosed Date Resolved Date Obesity, Class III, BMI >= 40 09/23/2020 05/28/2021 COVID-19 virus infection 06/12/202003/2021 Displaced fracture of base o f fifth metacarpal bone of right hand with routine healing 02/11/2016 12/08/2016 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 05/19/2015 02/12/2018 Extensor intersection syndrome 12/30/2013 04/23/2015 Left arm swelling 12/30/2013 04/23/2015 Left arm pain 12/30/2013 04/23/2015 Upper back pain on right side 02/11/2012 06/12/2012 Cholelithiasis 07/20/2011 11/09/2018 PVC (premature ventricular contraction) 07/20/2011 04/23/2015 Morbid obesity 02/15/2011 07/25/2012 Knee pain 12/06/2010 06/12/2012 Sprain of left shoulder 12/06/201011/19 Rectal bleeding 11/17/2010 12/02/2011 Hot flashes due to surgical menopause 11/17/2010 12/02/2011 Mastalgia 11/17/2010 12/02/2011 Adopted 11/17/2010 11/09/2018 Generalized headaches 01/29/20102011 Acne 01/29/2010 12/02/2011 Migraine without aura, with intractable migraine, so stated, without mention of status migrainosus 09/02/2008 01/29/2010 Dysmetabolic syndrome X 03/14/200811/19 PAIN HIP JOINT 03/14/2008 04/23/2015 Last Assessment & Plan: Continues with nightly Rt sided hip pain. Unable to take NSAIDs due to gastric bypass. Takes tylenol prn. Encouraged to follow with Dr. Negro, or even ortho if significant worsening. Edema 12/17/2007 12/22/2008 Routine general medical exam ination at a health care facility 12/17/2007 02/28/2012 Unspecified essential hypertension 12/17/2007 06/12/2012 Obesity, unspecified 12/17/2007 012 Hypothyroidism 11/17/2010 documented as of this encounter (statuses as of 05/06/2023) [facility] History of Past illness Narrative* Problem Noted Date Diagnosed Date Resolved Date Obesity, Class III, BMI >= 40 09/23/2020 05/28/2021 COVID-19 virus infection 06/12/202003/2021 Displaced fracture of base o f fifth metacarpal bone of right hand with routine healing 02/11/2016 12/08/2016 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 05/19/2015 02/12/2018 Extensor intersection syndrome 12/30/2013 04/23/2015 Left arm swelling 12/30/2013 04/23/2015 Left arm pain 12/30/2013 04/23/2015 Upper back pain on right side 02/11/2012 06/12/2012 Cholelithiasis 07/20/2011 11/09/2018 PVC (premature ventricular contraction) 07/20/2011 04/23/2015 Morbid obesity 02/15/2011 07/25/2012 Knee pain 12/06/2010 06/12/2012 Sprain of left shoulder 12/06/201011/19 Rectal bleeding 11/17/2010 12/02/2011 Hot flashes due to surgical menopause 11/17/2010 12/02/2011 Mastalgia 11/17/2010 12/02/2011 Adopted 11/17/2010 11/09/2018 Generalized headaches 01/29/20102011 Acne 01/29/2010 12/02/2011 Migraine without aura, with intractable migraine, so stated, without mention of status migrainosus 09/02/2008 01/29/2010 Dysmetabolic syndrome X 03/14/200811/19 PAIN HIP JOINT 03/14/2008 04/23/2015 Last Assessment & Plan: Continues with nightly Rt sided hip pain. Unable to take NSAIDs due to gastric bypass. Takes tylenol prn. Encouraged to follow with Dr. Negro, or even ortho if significant worsening. Edema 12/17/2007 12/22/2008 Routine general medical exam ination at a health care facility 12/17/2007 02/28/2012 Unspecified essential hypertension 12/17/2007 06/12/2012 Obesity, unspecified 12/17/2007 012 Hypothyroidism 11/17/2010 documented as of this encounter (statuses as of 05/08/2023) [facility] History of Past illness Narrative* Problem Noted Date Diagnosed Date Resolved Date Obesity, Class III, BMI >= 40 09/23/2020 05/28/2021 COVID-19 virus infection 06/12/202003/2021 Displaced fracture of base o f fifth metacarpal bone of right hand with routine healing 02/11/2016 12/08/2016 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 05/19/2015 02/12/2018 Extensor intersection syndrome 12/30/2013 04/23/2015 Left arm swelling 12/30/2013 04/23/2015 Left arm pain 12/30/2013 04/23/2015 Upper back pain on right side 02/11/2012 06/12/2012 Cholelithiasis 07/20/2011 11/09/2018 PVC (premature ventricular contraction) 07/20/2011 04/23/2015 Morbid obesity 02/15/2011 07/25/2012 Knee pain 12/06/2010 06/12/2012 Sprain of left shoulder 12/06/201011/19 Rectal bleeding 11/17/2010 12/02/2011 Hot flashes due to surgical menopause 11/17/2010 12/02/2011 Mastalgia 11/17/2010 12/02/2011 Adopted 11/17/2010 11/09/2018 Generalized headaches 01/29/20102011 Acne 01/29/2010 12/02/2011 Migraine without aura, with intractable migraine, so stated, without mention of status migrainosus 09/02/2008 01/29/2010 Dysmetabolic syndrome X 03/14/200811/19 PAIN HIP JOINT 03/14/2008 04/23/2015 Last Assessment & Plan: Continues with nightly Rt sided hip pain. Unable to take NSAIDs due to gastric bypass. Takes tylenol prn. Encouraged to follow with Dr. Negro, or even ortho if significant worsening. Edema 12/17/2007 12/22/2008 Routine general medical exam ination at a health care facility 12/17/2007 02/28/2012 Unspecified essential hypertension 12/17/2007 06/12/2012 Obesity, unspecified 12/17/2007 012 Hypothyroidism 11/17/2010 documented as of this encounter (statuses as of 05/08/2023) [facility] History of Past illness Narrative* Problem Noted Date Diagnosed Date Resolved Date Obesity, Class III, BMI >= 40 09/23/2020 05/28/2021 COVID-19 virus infection 06/12/202003/2021 Displaced fracture of base o f fifth metacarpal bone of right hand with routine healing 02/11/2016 12/08/2016 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 05/19/2015 02/12/2018 Extensor intersection syndrome 12/30/2013 04/23/2015 Left arm swelling 12/30/2013 04/23/2015 Left arm pain 12/30/2013 04/23/2015 Upper back pain on right side 02/11/2012 06/12/2012 Cholelithiasis 07/20/2011 11/09/2018 PVC (premature ventricular contraction) 07/20/2011 04/23/2015 Morbid obesity 02/15/2011 07/25/2012 Knee pain 12/06/2010 06/12/2012 Sprain of left shoulder 12/06/201011/19 Rectal bleeding 11/17/2010 12/02/2011 Hot flashes due to surgical menopause 11/17/2010 12/02/2011 Mastalgia 11/17/2010 12/02/2011 Adopted 11/17/2010 11/09/2018 Generalized headaches 01/29/20102011 Acne 01/29/2010 12/02/2011 Migraine without aura, with intractable migraine, so stated, without mention of status migrainosus 09/02/2008 01/29/2010 Dysmetabolic syndrome X 03/14/200811/19 PAIN HIP JOINT 03/14/2008 04/23/2015 Last Assessment & Plan: Continues with nightly Rt sided hip pain. Unable to take NSAIDs due to gastric bypass. Takes tylenol prn. Encouraged to follow with Dr. Negro, or even ortho if significant worsening. Edema 12/17/2007 12/22/2008 Routine general medical exam ination at a health care facility 12/17/2007 02/28/2012 Unspecified essential hypertension 12/17/2007 06/12/2012 Obesity, unspecified 12/17/2007 012 Hypothyroidism 11/17/2010 documented as of this encounter (statuses as of 05/20/2023) [facility] History of Past illness Narrative* Problem Noted Date Diagnosed Date Resolved Date Obesity, Class III, BMI >= 40 09/23/2020 05/28/2021 COVID-19 virus infection 06/12/202003/2021 Displaced fracture of base o f fifth metacarpal bone of right hand with routine healing 02/11/2016 12/08/2016 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 05/19/2015 02/12/2018 Extensor intersection syndrome 12/30/2013 04/23/2015 Left arm swelling 12/30/2013 04/23/2015 Left arm pain 12/30/2013 04/23/2015 Upper back pain on right side 02/11/2012 06/12/2012 Cholelithiasis 07/20/2011 11/09/2018 PVC (premature ventricular contraction) 07/20/2011 04/23/2015 Morbid obesity 02/15/2011 07/25/2012 Knee pain 12/06/2010 06/12/2012 Sprain of left shoulder 12/06/201011/19 Rectal bleeding 11/17/2010 12/02/2011 Hot flashes due to surgical menopause 11/17/2010 12/02/2011 Mastalgia 11/17/2010 12/02/2011 Adopted 11/17/2010 11/09/2018 Generalized headaches 01/29/20102011 Acne 01/29/2010 12/02/2011 Migraine without aura, with intractable migraine, so stated, without mention of status migrainosus 09/02/2008 01/29/2010 Dysmetabolic syndrome X 03/14/200811/19 PAIN HIP JOINT 03/14/2008 04/23/2015 Last Assessment & Plan: Continues with nightly Rt sided hip pain. Unable to take NSAIDs due to gastric bypass. Takes tylenol prn. Encouraged to follow with Dr. Negro, or even ortho if significant worsening. Edema 12/17/2007 12/22/2008 Routine general medical exam ination at a health care facility 12/17/2007 02/28/2012 Unspecified essential hypertension 12/17/2007 06/12/2012 Obesity, unspecified 12/17/2007 012 Hypothyroidism 11/17/2010 documented as of this encounter (statuses as of 06/06/2023) [facility]02-03-[facility]21 History of Past illness Narrative* Problem Noted Date Diagnosed Date Resolved Date Obesity, Class III, BMI >= 40 09/23/2020 05/28/2021 COVID-19 virus infection 06/12/202003/2021 Displaced fracture of base o f fifth metacarpal bone of right hand with routine healing 02/11/2016 12/08/2016 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 05/19/2015 02/12/2018 Extensor intersection syndrome 12/30/2013 04/23/2015 Left arm swelling 12/30/2013 04/23/2015 Left arm pain 12/30/2013 04/23/2015 Upper back pain on right side 02/11/2012 06/12/2012 Cholelithiasis 07/20/2011 11/09/2018 PVC (premature ventricular contraction) 07/20/2011 04/23/2015 Morbid obesity 02/15/2011 07/25/2012 Knee pain 12/06/2010 06/12/2012 Sprain of left shoulder 12/06/201011/19 Rectal bleeding 11/17/2010 12/02/2011 Hot flashes due to surgical menopause 11/17/2010 12/02/2011 Mastalgia 11/17/2010 12/02/2011 Adopted 11/17/2010 11/09/2018 Generalized headaches 01/29/20102011 Acne 01/29/2010 12/02/2011 Migraine without aura, with intractable migraine, so stated, without mention of status migrainosus 09/02/2008 01/29/2010 Dysmetabolic syndrome X 03/14/200811/19 PAIN HIP JOINT 03/14/2008 04/23/2015 Last Assessment & Plan: Continues with nightly Rt sided hip pain. Unable to take NSAIDs due to gastric bypass. Takes tylenol prn. Encouraged to follow with Dr. Negro, or even ortho if significant worsening. Edema 12/17/2007 12/22/2008 Routine general medical exam ination at a health care facility 12/17/2007 02/28/2012 Unspecified essential hypertension 12/17/2007 06/12/2012 Obesity, unspecified 12/17/2007 012 Hypothyroidism 11/17/2010 documented as of this encounter (statuses as of 06/07/2023) [facility]21 History of Past illness Narrative* Problem Noted Date Diagnosed Date Resolved Date Obesity, Class III, BMI >= 40 09/23/2020 05/28/2021 COVID-19 virus infection 06/12/202003/2021 Displaced fracture of base o f fifth metacarpal bone of right hand with routine healing 02/11/2016 12/08/2016 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 05/19/2015 02/12/2018 Extensor intersection syndrome 12/30/2013 04/23/2015 Left arm swelling 12/30/2013 04/23/2015 Left arm pain 12/30/2013 04/23/2015 Upper back pain on right side 02/11/2012 06/12/2012 Cholelithiasis 07/20/2011 11/09/2018 PVC (premature ventricular contraction) 07/20/2011 04/23/2015 Morbid obesity 02/15/2011 07/25/2012 Knee pain 12/06/2010 06/12/2012 Sprain of left shoulder 12/06/201011/19 Rectal bleeding 11/17/2010 12/02/2011 Hot flashes due to surgical menopause 11/17/2010 12/02/2011 Mastalgia 11/17/2010 12/02/2011 Adopted 11/17/2010 11/09/2018 Generalized headaches 01/29/20102011 Acne 01/29/2010 12/02/2011 Migraine without aura, with intractable migraine, so stated, without mention of status migrainosus 09/02/2008 01/29/2010 Dysmetabolic syndrome X 03/14/200811/19 PAIN HIP JOINT 03/14/2008 04/23/2015 Last Assessment & Plan: Continues with nightly Rt sided hip pain. Unable to take NSAIDs due to gastric bypass. Takes tylenol prn. Encouraged to follow with Dr. Negro, or even ortho if significant worsening. Edema 12/17/2007 12/22/2008 Routine general medical exam ination at a health care facility 12/17/2007 02/28/2012 Unspecified essential hypertension 12/17/2007 06/12/2012 Obesity, unspecified 12/17/2007 012 Hypothyroidism 11/17/2010 documented as of this encounter (statuses as of 06/20/2023) [facility]21 History of Past illness Narrative* Problem Noted Date Diagnosed Date Resolved Date Obesity, Class III, BMI >= 40 09/23/2020 05/28/2021 COVID-19 virus infection 06/12/202003/2021 Displaced fracture of base o f fifth metacarpal bone of right hand with routine healing 02/11/2016 12/08/2016 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 05/19/2015 02/12/2018 Extensor intersection syndrome 12/30/2013 04/23/2015 Left arm swelling 12/30/2013 04/23/2015 Left arm pain 12/30/2013 04/23/2015 Upper back pain on right side 02/11/2012 06/12/2012 Cholelithiasis 07/20/2011 11/09/2018 PVC (premature ventricular contraction) 07/20/2011 04/23/2015 Morbid obesity 02/15/2011 07/25/2012 Knee pain 12/06/2010 06/12/2012 Sprain of left shoulder 12/06/201011/19 Rectal bleeding 11/17/2010 12/02/2011 Hot flashes due to surgical menopause 11/17/2010 12/02/2011 Mastalgia 11/17/2010 12/02/2011 Adopted 11/17/2010 11/09/2018 Generalized headaches 01/29/20102011 Acne 01/29/2010 12/02/2011 Migraine without aura, with intractable migraine, so stated, without mention of status migrainosus 09/02/2008 01/29/2010 Dysmetabolic syndrome X 03/14/200811/19 PAIN HIP JOINT 03/14/2008 04/23/2015 Last Assessment & Plan: Continues with nightly Rt sided hip pain. Unable to take NSAIDs due to gastric bypass. Takes tylenol prn. Encouraged to follow with Dr. Negro, or even ortho if significant worsening. Edema 12/17/2007 12/22/2008 Routine general medical exam ination at a health care facility 12/17/2007 02/28/2012 Unspecified essential hypertension 12/17/2007 06/12/2012 Obesity, unspecified 12/17/2007 012 Hypothyroidism 11/17/2010 documented as of this encounter (statuses as of 06/22/2023) [facility]21 History of Past illness Narrative* Problem Noted Date Diagnosed Date Resolved Date Obesity, Class III, BMI >= 40 09/23/2020 05/28/2021 COVID-19 virus infection 06/12/202003/2021 Displaced fracture of base o f fifth metacarpal bone of right hand with routine healing 02/11/2016 12/08/2016 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 05/19/2015 02/12/2018 Extensor intersection syndrome 12/30/2013 04/23/2015 Left arm swelling 12/30/2013 04/23/2015 Left arm pain 12/30/2013 04/23/2015 Upper back pain on right side 02/11/2012 06/12/2012 Cholelithiasis 07/20/2011 11/09/2018 PVC (premature ventricular contraction) 07/20/2011 04/23/2015 Morbid obesity 02/15/2011 07/25/2012 Knee pain 12/06/2010 06/12/2012 Sprain of left shoulder 12/06/201011/19 Rectal bleeding 11/17/2010 12/02/2011 Hot flashes due to surgical menopause 11/17/2010 12/02/2011 Mastalgia 11/17/2010 12/02/2011 Adopted 11/17/2010 11/09/2018 Generalized headaches 01/29/20102011 Acne 01/29/2010 12/02/2011 Migraine without aura, with intractable migraine, so stated, without mention of status migrainosus 09/02/2008 01/29/2010 Dysmetabolic syndrome X 03/14/200811/19 PAIN HIP JOINT 03/14/2008 04/23/2015 Last Assessment & Plan: Continues with nightly Rt sided hip pain. Unable to take NSAIDs due to gastric bypass. Takes tylenol prn. Encouraged to follow with Dr. Negro, or even ortho if significant worsening. Edema 12/17/2007 12/22/2008 Routine general medical exam ination at a health care facility 12/17/2007 02/28/2012 Unspecified essential hypertension 12/17/2007 06/12/2012 Obesity, unspecified 12/17/2007 012 Hypothyroidism 11/17/2010 documented as of this encounter (statuses as of 06/29/2023) [facility]21 History of Past illness Narrative* Problem Noted Date Diagnosed Date Resolved Date Obesity, Class III, BMI >= 40 09/23/2020 05/28/2021 COVID-19 virus infection 06/12/202003/2021 Displaced fracture of base o f fifth metacarpal bone of right hand with routine healing 02/11/2016 12/08/2016 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 05/19/2015 02/12/2018 Extensor intersection syndrome 12/30/2013 04/23/2015 Left arm swelling 12/30/2013 04/23/2015 Left arm pain 12/30/2013 04/23/2015 Upper back pain on right side 02/11/2012 06/12/2012 Cholelithiasis 07/20/2011 11/09/2018 PVC (premature ventricular contraction) 07/20/2011 04/23/2015 Morbid obesity 02/15/2011 07/25/2012 Knee pain 12/06/2010 06/12/2012 Sprain of left shoulder 12/06/201011/19 Rectal bleeding 11/17/2010 12/02/2011 Hot flashes due to surgical menopause 11/17/2010 12/02/2011 Mastalgia 11/17/2010 12/02/2011 Adopted 11/17/2010 11/09/2018 Generalized headaches 01/29/20102011 Acne 01/29/2010 12/02/2011 Migraine without aura, with intractable migraine, so stated, without mention of status migrainosus 09/02/2008 01/29/2010 Dysmetabolic syndrome X 03/14/200811/19 PAIN HIP JOINT 03/14/2008 04/23/2015 Last Assessment & Plan: Continues with nightly Rt sided hip pain. Unable to take NSAIDs due to gastric bypass. Takes tylenol prn. Encouraged to follow with Dr. Negro, or even ortho if significant worsening. Edema 12/17/2007 12/22/2008 Routine general medical exam ination at a health care facility 12/17/2007 02/28/2012 Unspecified essential hypertension 12/17/2007 06/12/2012 Obesity, unspecified 12/17/2007 012 Hypothyroidism 11/17/2010 documented as of this encounter (statuses as of 08/04/2023) [facility]21 History of Past illness Narrative* Problem Noted Date Diagnosed Date Resolved Date Obesity, Class III, BMI >= 40 09/23/2020 05/28/2021 COVID-19 virus infection 06/12/202003/2021 Displaced fracture of base o f fifth metacarpal bone of right hand with routine healing 02/11/2016 12/08/2016 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 05/19/2015 02/12/2018 Extensor intersection syndrome 12/30/2013 04/23/2015 Left arm swelling 12/30/2013 04/23/2015 Left arm pain 12/30/2013 04/23/2015 Upper back pain on right side 02/11/2012 06/12/2012 Cholelithiasis 07/20/2011 11/09/2018 PVC (premature ventricular contraction) 07/20/2011 04/23/2015 Morbid obesity 02/15/2011 07/25/2012 Knee pain 12/06/2010 06/12/2012 Sprain of left shoulder 12/06/201011/19 Rectal bleeding 11/17/2010 12/02/2011 Hot flashes due to surgical menopause 11/17/2010 12/02/2011 Mastalgia 11/17/2010 12/02/2011 Adopted 11/17/2010 11/09/2018 Generalized headaches 01/29/20102011 Acne 01/29/2010 12/02/2011 Migraine without aura, with intractable migraine, so stated, without mention of status migrainosus 09/02/2008 01/29/2010 Dysmetabolic syndrome X 03/14/200811/19 PAIN HIP JOINT 03/14/2008 04/23/2015 Last Assessment & Plan: Continues with nightly Rt sided hip pain. Unable to take NSAIDs due to gastric bypass. Takes tylenol prn. Encouraged to follow with Dr. Negro, or even ortho if significant worsening. Edema 12/17/2007 12/22/2008 Routine general medical exam ination at a health care facility 12/17/2007 02/28/2012 Unspecified essential hypertension 12/17/2007 06/12/2012 Obesity, unspecified 12/17/2007 012 Hypothyroidism 11/17/2010 documented as of this encounter (statuses as of 09/22/2023) [facility]21 History of Past illness Narrative* Problem Noted Date Diagnosed Date Resolved Date Obesity, Class III, BMI >= 40 09/23/2020 05/28/2021 COVID-19 virus infection 06/12/202003/2021 Displaced fracture of base o f fifth metacarpal bone of right hand with routine healing 02/11/2016 12/08/2016 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 05/19/2015 02/12/2018 Extensor intersection syndrome 12/30/2013 04/23/2015 Left arm swelling 12/30/2013 04/23/2015 Left arm pain 12/30/2013 04/23/2015 Upper back pain on right side 02/11/2012 06/12/2012 Cholelithiasis 07/20/2011 11/09/2018 PVC (premature ventricular contraction) 07/20/2011 04/23/2015 Morbid obesity 02/15/2011 07/25/2012 Knee pain 12/06/2010 06/12/2012 Sprain of left shoulder 12/06/201011/19 Rectal bleeding 11/17/2010 12/02/2011 Hot flashes due to surgical menopause 11/17/2010 12/02/2011 Mastalgia 11/17/2010 12/02/2011 Adopted 11/17/2010 11/09/2018 Generalized headaches 01/29/20102011 Acne 01/29/2010 12/02/2011 Migraine without aura, with intractable migraine, so stated, without mention of status migrainosus 09/02/2008 01/29/2010 Dysmetabolic syndrome X 03/14/200811/19 PAIN HIP JOINT 03/14/2008 04/23/2015 Last Assessment & Plan: Continues with nightly Rt sided hip pain. Unable to take NSAIDs due to gastric bypass. Takes tylenol prn. Encouraged to follow with Dr. Negro, or even ortho if significant worsening. Edema 12/17/2007 12/22/2008 Routine general medical exam ination at a health care facility 12/17/2007 02/28/2012 Unspecified essential hypertension 12/17/2007 06/12/2012 Obesity, unspecified 12/17/2007 012 Hypothyroidism 11/17/2010 documented as of this encounter (statuses as of 10/06/2023) [facility]21 History of Past illness Narrative* Problem Noted Date Diagnosed Date Resolved Date Obesity, Class III, BMI >= 40 09/23/2020 05/28/2021 COVID-19 virus infection 06/12/202003/2021 Displaced fracture of base o f fifth metacarpal bone of right hand with routine healing 02/11/2016 12/08/2016 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 05/19/2015 02/12/2018 Extensor intersection syndrome 12/30/2013 04/23/2015 Left arm swelling 12/30/2013 04/23/2015 Left arm pain 12/30/2013 04/23/2015 Upper back pain on right side 02/11/2012 06/12/2012 Cholelithiasis 07/20/2011 11/09/2018 PVC (premature ventricular contraction) 07/20/2011 04/23/2015 Morbid obesity 02/15/2011 07/25/2012 Knee pain 12/06/2010 06/12/2012 Sprain of left shoulder 12/06/201011/19 Rectal bleeding 11/17/2010 12/02/2011 Hot flashes due to surgical menopause 11/17/2010 12/02/2011 Mastalgia 11/17/2010 12/02/2011 Adopted 11/17/2010 11/09/2018 Generalized headaches 01/29/20102011 Acne 01/29/2010 12/02/2011 Migraine without aura, with intractable migraine, so stated, without mention of status migrainosus 09/02/2008 01/29/2010 Dysmetabolic syndrome X 03/14/200811/19 PAIN HIP JOINT 03/14/2008 04/23/2015 Last Assessment & Plan: Continues with nightly Rt sided hip pain. Unable to take NSAIDs due to gastric bypass. Takes tylenol prn. Encouraged to follow with Dr. Negro, or even ortho if significant worsening. Edema 12/17/2007 12/22/2008 Routine general medical exam ination at a health care facility 12/17/2007 02/28/2012 Unspecified essential hypertension 12/17/2007 06/12/2012 Obesity, unspecified 12/17/2007 012 Hypothyroidism 11/17/2010 documented as of this encounter (statuses as of 10/19/2023) [facility]21 History of Past illness Narrative* Problem Noted Date Diagnosed Date Resolved Date Obesity, Class III, BMI >= 40 09/23/2020 05/28/2021 COVID-19 virus infection 06/12/202003/2021 Displaced fracture of base o f fifth metacarpal bone of right hand with routine healing 02/11/2016 12/08/2016 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 05/19/2015 02/12/2018 Extensor intersection syndrome 12/30/2013 04/23/2015 Left arm swelling 12/30/2013 04/23/2015 Left arm pain 12/30/2013 04/23/2015 Upper back pain on right side 02/11/2012 06/12/2012 Cholelithiasis 07/20/2011 11/09/2018 PVC (premature ventricular contraction) 07/20/2011 04/23/2015 Morbid obesity 02/15/2011 07/25/2012 Knee pain 12/06/2010 06/12/2012 Sprain of left shoulder 12/06/201011/19 Rectal bleeding 11/17/2010 12/02/2011 Hot flashes due to surgical menopause 11/17/2010 12/02/2011 Mastalgia 11/17/2010 12/02/2011 Adopted 11/17/2010 11/09/2018 Generalized headaches 01/29/20102011 Acne 01/29/2010 12/02/2011 Migraine without aura, with intractable migraine, so stated, without mention of status migrainosus 09/02/2008 01/29/2010 Dysmetabolic syndrome X 03/14/200811/19 PAIN HIP JOINT 03/14/2008 04/23/2015 Last Assessment & Plan: Continues with nightly Rt sided hip pain. Unable to take NSAIDs due to gastric bypass. Takes tylenol prn. Encouraged to follow with Dr. Negro, or even ortho if significant worsening. Edema 12/17/2007 12/22/2008 Routine general medical exam ination at a health care facility 12/17/2007 02/28/2012 Unspecified essential hypertension 12/17/2007 06/12/2012 Obesity, unspecified 12/17/2007 012 Hypothyroidism 11/17/2010 documented as of this encounter (statuses as of 11/03/2023) [facility]21 History of Past illness Narrative* Problem Noted Date Diagnosed Date Resolved Date Obesity, Class III, BMI >= 40 09/23/2020 05/28/2021 COVID-19 virus infection 06/12/202003/2021 Displaced fracture of base o f fifth metacarpal bone of right hand with routine healing 02/11/2016 12/08/2016 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 05/19/2015 02/12/2018 Extensor intersection syndrome 12/30/2013 04/23/2015 Left arm swelling 12/30/2013 04/23/2015 Left arm pain 12/30/2013 04/23/2015 Upper back pain on right side 02/11/2012 06/12/2012 Cholelithiasis 07/20/2011 11/09/2018 PVC (premature ventricular contraction) 07/20/2011 04/23/2015 Morbid obesity 02/15/2011 07/25/2012 Knee pain 12/06/2010 06/12/2012 Sprain of left shoulder 12/06/201011/19 Rectal bleeding 11/17/2010 12/02/2011 Hot flashes due to surgical menopause 11/17/2010 12/02/2011 Mastalgia 11/17/2010 12/02/2011 Adopted 11/17/2010 11/09/2018 Generalized headaches 01/29/20102011 Acne 01/29/2010 12/02/2011 Migraine without aura, with intractable migraine, so stated, without mention of status migrainosus 09/02/2008 01/29/2010 Dysmetabolic syndrome X 03/14/200811/19 PAIN HIP JOINT 03/14/2008 04/23/2015 Last Assessment & Plan: Continues with nightly Rt sided hip pain. Unable to take NSAIDs due to gastric bypass. Takes tylenol prn. Encouraged to follow with Dr. Negro, or even ortho if significant worsening. Edema 12/17/2007 12/22/2008 Routine general medical exam ination at a health care facility 12/17/2007 02/28/2012 Unspecified essential hypertension 12/17/2007 06/12/2012 Obesity, unspecified 12/17/2007 012 Hypothyroidism 11/17/2010 documented as of this encounter (statuses as of 11/03/2023) [facility] History of Past illness Narrative* Problem Noted Date Diagnosed Date Resolved Date Obesity, Class III, BMI >= 40 09/23/2020 05/28/2021 COVID-19 virus infection 06/12/202003/2021 Displaced fracture of base o f fifth metacarpal bone of right hand with routine healing 02/11/2016 12/08/2016 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 05/19/2015 02/12/2018 Extensor intersection syndrome 12/30/2013 04/23/2015 Left arm swelling 12/30/2013 04/23/2015 Left arm pain 12/30/2013 04/23/2015 Upper back pain on right side 02/11/2012 06/12/2012 Cholelithiasis 07/20/2011 11/09/2018 PVC (premature ventricular contraction) 07/20/2011 04/23/2015 Morbid obesity 02/15/2011 07/25/2012 Knee pain 12/06/2010 06/12/2012 Sprain of left shoulder 12/06/201011/19 Rectal bleeding 11/17/2010 12/02/2011 Hot flashes due to surgical menopause 11/17/2010 12/02/2011 Mastalgia 11/17/2010 12/02/2011 Adopted 11/17/2010 11/09/2018 Generalized headaches 01/29/20102011 Acne 01/29/2010 12/02/2011 Migraine without aura, with intractable migraine, so stated, without mention of status migrainosus 09/02/2008 01/29/2010 Dysmetabolic syndrome X 03/14/200811/19 PAIN HIP JOINT 03/14/2008 04/23/2015 Last Assessment & Plan: Continues with nightly Rt sided hip pain. Unable to take NSAIDs due to gastric bypass. Takes tylenol prn. Encouraged to follow with Dr. Negro, or even ortho if significant worsening. Edema 12/17/2007 12/22/2008 Routine general medical exam ination at a health care facility 12/17/2007 02/28/2012 Unspecified essential hypertension 12/17/2007 06/12/2012 Obesity, unspecified 12/17/2007 012 Hypothyroidism 11/17/2010 documented as of this encounter (statuses as of 11/04/2023) [facility] History of Past illness Narrative* Problem Noted Date Diagnosed Date Resolved Date Obesity, Class III, BMI >= 40 09/23/2020 05/28/2021 COVID-19 virus infection 06/12/202003/2021 Displaced fracture of base o f fifth metacarpal bone of right hand with routine healing 02/11/2016 12/08/2016 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 05/19/2015 02/12/2018 Extensor intersection syndrome 12/30/2013 04/23/2015 Left arm swelling 12/30/2013 04/23/2015 Left arm pain 12/30/2013 04/23/2015 Upper back pain on right side 02/11/2012 06/12/2012 Cholelithiasis 07/20/2011 11/09/2018 PVC (premature ventricular contraction) 07/20/2011 04/23/2015 Morbid obesity 02/15/2011 07/25/2012 Knee pain 12/06/2010 06/12/2012 Sprain of left shoulder 12/06/201011/19 Rectal bleeding 11/17/2010 12/02/2011 Hot flashes due to surgical menopause 11/17/2010 12/02/2011 Mastalgia 11/17/2010 12/02/2011 Adopted 11/17/2010 11/09/2018 Generalized headaches 01/29/20102011 Acne 01/29/2010 12/02/2011 Migraine without aura, with intractable migraine, so stated, without mention of status migrainosus 09/02/2008 01/29/2010 Dysmetabolic syndrome X 03/14/200811/19 PAIN HIP JOINT 03/14/2008 04/23/2015 Last Assessment & Plan: Continues with nightly Rt sided hip pain. Unable to take NSAIDs due to gastric bypass. Takes tylenol prn. Encouraged to follow with Dr. Negro, or even ortho if significant worsening. Edema 12/17/2007 12/22/2008 Routine general medical exam ination at a health care facility 12/17/2007 02/28/2012 Unspecified essential hypertension 12/17/2007 06/12/2012 Obesity, unspecified 12/17/2007 012 Hypothyroidism 11/17/2010 documented as of this encounter (statuses as of 11/06/2023) [facility] History of Past illness Narrative* Problem Noted Date Diagnosed Date Resolved Date Obesity, Class III, BMI >= 40 09/23/2020 05/28/2021 COVID-19 virus infection 06/12/202003/2021 Displaced fracture of base o f fifth metacarpal bone of right hand with routine healing 02/11/2016 12/08/2016 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 05/19/2015 02/12/2018 Extensor intersection syndrome 12/30/2013 04/23/2015 Left arm swelling 12/30/2013 04/23/2015 Left arm pain 12/30/2013 04/23/2015 Upper back pain on right side 02/11/2012 06/12/2012 Cholelithiasis 07/20/2011 11/09/2018 PVC (premature ventricular contraction) 07/20/2011 04/23/2015 Morbid obesity 02/15/2011 07/25/2012 Knee pain 12/06/2010 06/12/2012 Sprain of left shoulder 12/06/201011/19 Rectal bleeding 11/17/2010 12/02/2011 Hot flashes due to surgical menopause 11/17/2010 12/02/2011 Mastalgia 11/17/2010 12/02/2011 Adopted 11/17/2010 11/09/2018 Generalized headaches 01/29/20102011 Acne 01/29/2010 12/02/2011 Migraine without aura, with intractable migraine, so stated, without mention of status migrainosus 09/02/2008 01/29/2010 Dysmetabolic syndrome X 03/14/200811/19 PAIN HIP JOINT 03/14/2008 04/23/2015 Last Assessment & Plan: Continues with nightly Rt sided hip pain. Unable to take NSAIDs due to gastric bypass. Takes tylenol prn. Encouraged to follow with Dr. Negro, or even ortho if significant worsening. Edema 12/17/2007 12/22/2008 Routine general medical exam ination at a health care facility 12/17/2007 02/28/2012 Unspecified essential hypertension 12/17/2007 06/12/2012 Obesity, unspecified 12/17/2007 012 Hypothyroidism 11/17/2010 documented as of this encounter (statuses as of 11/08/2023) [facility] History of Past illness Narrative* Problem Noted Date Diagnosed Date Resolved Date Obesity, Class III, BMI >= 40 09/23/2020 05/28/2021 COVID-19 virus infection 06/12/202003/2021 Displaced fracture of base o f fifth metacarpal bone of right hand with routine healing 02/11/2016 12/08/2016 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 05/19/2015 02/12/2018 Extensor intersection syndrome 12/30/2013 04/23/2015 Left arm swelling 12/30/2013 04/23/2015 Left arm pain 12/30/2013 04/23/2015 Upper back pain on right side 02/11/2012 06/12/2012 Cholelithiasis 07/20/2011 11/09/2018 PVC (premature ventricular contraction) 07/20/2011 04/23/2015 Morbid obesity 02/15/2011 07/25/2012 Knee pain 12/06/2010 06/12/2012 Sprain of left shoulder 12/06/201011/19 Rectal bleeding 11/17/2010 12/02/2011 Hot flashes due to surgical menopause 11/17/2010 12/02/2011 Mastalgia 11/17/2010 12/02/2011 Adopted 11/17/2010 11/09/2018 Generalized headaches 01/29/20102011 Acne 01/29/2010 12/02/2011 Migraine without aura, with intractable migraine, so stated, without mention of status migrainosus 09/02/2008 01/29/2010 Dysmetabolic syndrome X 03/14/200811/19 PAIN HIP JOINT 03/14/2008 04/23/2015 Last Assessment & Plan: Continues with nightly Rt sided hip pain. Unable to take NSAIDs due to gastric bypass. Takes tylenol prn. Encouraged to follow with Dr. Negro, or even ortho if significant worsening. Edema 12/17/2007 12/22/2008 Routine general medical exam ination at a health care facility 12/17/2007 02/28/2012 Unspecified essential hypertension 12/17/2007 06/12/2012 Obesity, unspecified 12/17/2007 012 Hypothyroidism 11/17/2010 documented as of this encounter (statuses as of 11/23/2023) [facility] History of Past illness Narrative* Problem Noted Date Diagnosed Date Resolved Date Obesity, Class III, BMI >= 40 09/23/2020 05/28/2021 COVID-19 virus infection 06/12/202003/2021 Displaced fracture of base o f fifth metacarpal bone of right hand with routine healing 02/11/2016 12/08/2016 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 05/19/2015 02/12/2018 Extensor intersection syndrome 12/30/2013 04/23/2015 Left arm swelling 12/30/2013 04/23/2015 Left arm pain 12/30/2013 04/23/2015 Upper back pain on right side 02/11/2012 06/12/2012 Cholelithiasis 07/20/2011 11/09/2018 PVC (premature ventricular contraction) 07/20/2011 04/23/2015 Morbid obesity 02/15/2011 07/25/2012 Knee pain 12/06/2010 06/12/2012 Sprain of left shoulder 12/06/201011/19 Rectal bleeding 11/17/2010 12/02/2011 Hot flashes due to surgical menopause 11/17/2010 12/02/2011 Mastalgia 11/17/2010 12/02/2011 Adopted 11/17/2010 11/09/2018 Generalized headaches 01/29/20102011 Acne 01/29/2010 12/02/2011 Migraine without aura, with intractable migraine, so stated, without mention of status migrainosus 09/02/2008 01/29/2010 Dysmetabolic syndrome X 03/14/200811/19 PAIN HIP JOINT 03/14/2008 04/23/2015 Last Assessment & Plan: Continues with nightly Rt sided hip pain. Unable to take NSAIDs due to gastric bypass. Takes tylenol prn. Encouraged to follow with Dr. Negro, or even ortho if significant worsening. Edema 12/17/2007 12/22/2008 Routine general medical exam ination at a peoples hospital care facility 12/17/2007 02/28/2012 Obesity, unspecified 12/17/2007 012 Hypothyroidism 11/17/2010 documented as of this encounter (statuses as of 12/06/2023) [facility] History of Present illness Narrative* Urszula Hassan (Rt), Tech - 07/31/2020 12:20 PM EST Radiology Service Progress Note PATIENT NAME: Chica Shah DATE OF SERVICE: July 31, 2020 TIME: 12:18 PM PATIENT IDENTITY VERIFICATION COMPLETED USING TWO (2) IDENTIFIERS: Name and Date of confirmedby patient verbally. FALL SCREENING: Has the patient had 2 falls in the last year or 1 fall with injury or currently using an Ambulatory Assistive Device (Walker, Cane, Wheelchair, Crutches, etc.)? Yes, Patient High Riskfor Falls What interventions were put in place to prevent falls during this visit? Offered Assistance with Transfers/Clothing and Increased Observations by Caregivers PATIENT GENDER DATA: Female. status: : No status: NO. PATIENT RELEVANT IMPLANT DATA REVIEWED: Yes RADIOLOGY DEPARTMENT: General X-ray: Exam(s) Completed: Pelvis X-Ray: Pelvis with Hip Right Upper Extremity X-Ray(s): Shoulder, AP / TRUE AP / AXILLARY right : PERIPHERAL IV DATA: Not applicable SIGNED BY: RT Antonia July 31, 2020 12:18 PM [facility] History of Present illness Narrative* Michelle Vargas (Rt), Tech - 07/09/2020 10:50 AM EST Radiology Service Progress Note PATIENT NAME: Chica Shah DATE OF SERVICE: July 09, 2020 TIME: 11:04 AM PATIENT IDENTITY VERIFICATION COMPLETED USING TWO (2) IDENTIFIERS: Name and Date of confirmedby patient verbally. FALL SCREENING: Has the patient had 2 falls in the last year or 1 fall with injury or currently using an Ambulatory Assistive Device (Walker, Cane, Wheelchair, Crutches, etc.)? No PATIENT GENDER DATA: Female. status: : No status: NO. PATIENT RELEVANT IMPLANT DATA REVIEWED: Not Applicable RADIOLOGY DEPARTMENT: General X-ray: Exam(s) Completed: Chest X-Ray PERIPHERAL IV DATA: Not applicable SIGNED BY: RT Paul July 09, 2020 11:04 AM [facility] History of Present illness Narrative* Urszula HassanRt)Shona - 06/29/2020 2:10 PM EST Radiology Service Progress Note PATIENT NAME: Chica Shah DATE OF SERVICE: June 29, 2020 TIME: 2:05 PM PATIENT IDENTITY VERIFICATION COMPLETED USING TWO (2) IDENTIFIERS: Name and Date of confirmedby patient verbally. FALL SCREENING: Has the patient had 2 falls in the last year or 1 fall with injury or currently using an Ambulatory Assistive Device (Walker, Cane, Wheelchair, Crutches, etc.)? No PATIENT GENDER DATA: Female. status: : No status: NO. PATIENT RELEVANT IMPLANT DATA REVIEWED: Yes RADIOLOGY DEPARTMENT: General X-ray: Exam(s) Completed: Chest X-Ray PERIPHERAL IV DATA: Not applicable SIGNED BY: RT Antonia June 29, 2020 2:05 PM [facility]* Diagnosis Hyperlipidemia, unspecified hyperlipidemia type Diabetes mellitus type 2 in obese (HCC) Type II or unspecified type diabetes mellitus without mention of complication, not stated as uncontrolled Cervicalgia Fibromyalgia Mylagia and myositis, unspecified Chronic low back pain, unspecified back pain laterality, unspecified whether sciatica present documented in this encounter [facility] note* Diagnosis Lipoma of back- Primary Lipoma of other specified sites documented in this encounter [facility]* Diagnosis Lipoma of back- Primary Lipoma of other specified sites Dysesthesia Disturbance of skin sensation Encounter for screening for COVID-19 documented in this encounter [facility] note* Diagnosis Fibromyalgia Mylagia and myositis, unspecified Encounter for screening for COVID-19 documented in this encounter [facility] note* Diagnosis Finger pain, right- Primary Pain in limb documented in this encounter [facility] note* Diagnosis Lipoma of torso- Primary documented in this encounter [facility]* Diagnosis Subcutaneous mass- Primary Localized superficial swelling, mass, or lump documented in this encounter [facility] note* Diagnosis Subcutaneous mass- Primary Localized superficial swelling, mass, or lump [facility] Diagnosis Lipoma of back- Primary Lipoma of other specified sites Dysesthesia Disturbance of skin sensation documented in this encounter [facility] note* Diagnosis Diabetes mellitus type 2 in obese (HCC)- Primary Type II or unspecified type diabetes mellitus without mention of complication, not stated as uncontrolled Hypothyroidism, unspecified type Fibromyalgia Mylagia and myositis, unspecified Hyperlipidemia, unspecified hyperlipidemia type Chronic low back pain, unspecified back pain laterality, unspecified whether sciatica present Cervicalgia Encounter for immunization Need for other specified prophylactic vaccination against single bacterial disease Obesity, Class I, BMI 30-34.9 Obesity, unspecified documented in this encounter [facility] note* Diagnosis Fibromyalgia Mylagia and myositis, unspecified documented in this encounter [facility] note* Diagnosis Encounter for screening mammogram for breast cancer documented in this encounter [facility] note* Diagnosis Syncope, unspecified syncope type- Primary Hypothyroidism, unspecified type Fibromyalgia Mylagia and myositis, unspecified Hyperlipidemia, unspecified hyperlipidemia type Diabetes mellitus type 2 in obese (HCC) Type II or unspecified type diabetes mellitus without mention of complication, not stated as uncontrolled Cervicalgia Chronic low back pain, unspecified back pain laterality, unspecified whether sciatica present Insomnia due to medical condition Insomnia due to medical condition classified elsewhere Intertrigo Other specified erythematous condition Palpitations documented in this encounter [facility] note* Diagnosis Syncope, unspecified syncope type- Primary Fibromyalgia Mylagia and myositis, unspecified Cervicalgia Chronic low back pain, unspecified back pain laterality, unspecified whether sciatica present Insomnia due to medical condition Insomnia due to medical condition classified elsewhere [facility] Syncope, unspecified syncope type- Primary [facility] Diagnosis Diabetes mellitus type 2 in obese (HCC) Type II or unspecified type diabetes mellitus without mention of complication, not stated as uncontrolled [facility] Diagnosis Cervicalgia- Primary Chronic low back pain, unspecified back pain laterality, unspecified whether sciatica present Vitamin B12 deficiency Other B-complex deficiencies Vitamin D deficiency Unspecified vitamin D deficiency Fibromyalgia Mylagia and myositis, unspecified [facility] Diagnosis Orthostatic intolerance- Primary Neck pain Cervicalgia [facility] this [facility]* Diagnosis Diabetes mellitus type 2 in obese (HCC)- Primary Type II or unspecified type diabetes mellitus without mention of complication, not stated as uncontrolled Encounter for screening mammogram for malignant neoplasm of breast Other screening mammogram Syncope, unspecified syncope type Cervicalgia Chronic low back pain, unspecified back pain laterality, unspecified whether sciatica present Fibromyalgia Mylagia and myositis, unspecified [facility] Diagnosis Treatment not available- Primary Procedure not carried out for other reasons [facility] COVID- Primary Diabetes mellitus type 2 in obese (HCC) Type II or unspecified type diabetes mellitus without mention of complication, not stated as uncontrolled [facility] Diagnosis Fibromyalgia- Primary Mylagia and myositis, unspecified Cervicalgia Chronic low back pain, unspecified back pain laterality, unspecified whether sciatica present [facility] Diagnosis Rash and nonspecific skin eruption- Primary Rash and other nonspecific skin eruption Cellulitis, unspecified cellulitis site Elevated blood pressure reading Elevated blood pressure reading without diagnosis of hypertension Fatty liver Other chronic nonalcoholic liver disease [facility] this encounter [facility] Diagnosis Fatty liver- Primary Other chronic nonalcoholic liver disease [facility] Diagnosis Fatty liver Other chronic nonalcoholic liver disease [facility] Diagnosis Syncope, unspecified syncope type- Primary Tachycardia Tachycardia, unspecified Elevated blood pressure reading Elevated blood pressure reading without diagnosis of hypertension Cellulitis of back except buttock Cellulitis and abscess of trunk Need for COVID-19 vaccine Hypothyroidism, unspecified type Diabetes mellitus type 2 in obese (HCC) Type II or unspecified type diabetes mellitus without mention of complication, not stated as uncontrolled [facility] this [facility] Diagnosis Cervicalgia Chronic low back pain, unspecified back pain laterality, unspecified whether sciatica present Fibromyalgia Mylagia and myositis, unspecified [facility]* Diagnosis Fibromyalgia Mylagia and myositis, unspecified Cervicalgia Chronic low back pain, unspecified back pain laterality, unspecified whether sciatica present [facility] Diagnosis Transient loss of consciousness- Primary Syncope and collapse Orthostatic intolerance [facility]* Diagnosis Cervicalgia Chronic low back pain, unspecified back pain laterality, unspecified whether sciatica present Fibromyalgia Mylagia and myositis, unspecified [facility]* Diagnosis Primary hypertension- Primary Unspecified essential hypertension Nasal pain Other diseases of nasal cavity and sinuses Fibromyalgia Mylagia and myositis, unspecified Cervicalgia Chronic low back pain, unspecified back pain laterality, unspecified whether sciatica present Syncope, unspecified syncope type Hypothyroidism, unspecified type Elevated alkaline phosphatase level Other nonspecific abnormal serum enzyme levels Hyperlipidemia, unspecified hyperlipidemia type [facility] in this encounter [facility] Diagnosis Primary hypertension- Primary Unspecified essential hypertension Numbness and tingling of left upper extremity Cervicalgia documented [facility] this [facility]* Diagnosis Syncope, unspecified syncope type documented [facility] this [facility]* Diagnosis Left arm numbness- Primary Disturbance of skin sensation Primary hypertension Unspecified essential hypertension Cervicalgia Numbness and tingling of left upper extremity documented [facility] this encounter [facility]* Diagnosis Cervicalgia- Primary Injury of toe on right foot, initial encounter Fibromyalgia Mylagia and myositis, unspecified Great toe pain, right Injury of toe on right foot, initial encounter Great toe pain, right [facility] Diagnosis Radiculopathy, cervical region [M54.12]- Primary Brachial neuritis or radiculitis nos Left arm numbness Disturbance of skin sensation [facility] this [facility]* Diagnosis Cervicalgia- Primary Cervical radiculopathy Brachial neuritis or radiculitis nos DDD (degenerative disc disease), cervical Degeneration of cervical intervertebral disc documented [facility] this [facility]* Diagnosis Hyperlipidemia, unspecified hyperlipidemia type- Primary Fibromyalgia Mylagia and myositis, unspecified Cervicalgia documented in this encounter [facility] note* Diagnosis HYPOTHYROIDISM NOS- Primary Unspecified hypothyroidism Vitamin D deficiency Unspecified vitamin D deficiency Gastric bypass status for obesity Bariatric surgery status PAIN HIP JOINT Pain in joint, pelvic region and thigh Diabetes mellitus type 2 in obese Type II or unspecified type diabetes mellitus without mention of complication, not stated as uncontrolled Diabetes mellitus type 2 in obese- Primary Type II or unspecified type diabetes mellitus without mention of complication, not stated as uncontrolled Hypothyroidism, unspecified type Fibromyalgia Mylagia and myositis, unspecified Hyperlipidemia, unspecified hyperlipidemia type Chronic low back pain, unspecified back pain laterality, unspecified whether sciatica present Cervicalgia Encounter for immunization Need for other specified prophylactic vaccination against single bacterial disease Obesity, Class I, BMI 30-34.9 Obesity, unspecified Primary hypertension- Primary Unspecified essential hypertension 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) (HCC) documented in this encounter [facility] note* Diagnosis HYPOTHYROIDISM NOS- Primary Unspecified hypothyroidism Vitamin D deficiency Unspecified vitamin D deficiency Gastric bypass status for obesity Bariatric surgery status PAIN HIP JOINT Pain in joint, pelvic region and thigh Diabetes mellitus type 2 in obese Type II or unspecified type diabetes mellitus without mention of complication, not stated as uncontrolled Diabetes mellitus type 2 in obese- Primary Type II or unspecified type diabetes mellitus without mention of complication, not stated as uncontrolled Hypothyroidism, unspecified type Fibromyalgia Mylagia and myositis, unspecified Hyperlipidemia, unspecified hyperlipidemia type Chronic low back pain, unspecified back pain laterality, unspecified whether sciatica present Cervicalgia Encounter for immunization Need for other specified prophylactic vaccination against single bacterial disease Obesity, Class I, BMI 30-34.9 Obesity, unspecified Injury of toe on right foot, initial encounter Great toe pain, right documented in this encounter [facility] note* Diagnosis HYPOTHYROIDISM NOS- Primary Unspecified hypothyroidism Vitamin D deficiency Unspecified vitamin D deficiency Gastric bypass status for obesity Bariatric surgery status PAIN HIP JOINT Pain in joint, pelvic region and thigh Diabetes mellitus type 2 in obese Type II or unspecified type diabetes mellitus without mention of complication, not stated as uncontrolled Diabetes mellitus type 2 in obese- Primary Type II or unspecified type diabetes mellitus without mention of complication, not stated as uncontrolled Hypothyroidism, unspecified type Fibromyalgia Mylagia and myositis, unspecified Hyperlipidemia, unspecified hyperlipidemia type Chronic low back pain, unspecified back pain laterality, unspecified whether sciatica present Cervicalgia Encounter for immunization Need for other specified prophylactic vaccination against single bacterial disease Obesity, Class I, BMI 30-34.9 Obesity, unspecified Fibromyalgia Mylagia and myositis, unspecified documented in this encounter [facility] note* Diagnosis HYPOTHYROIDISM NOS- Primary Unspecified hypothyroidism Vitamin D deficiency Unspecified vitamin D deficiency Gastric bypass status for obesity Bariatric surgery status PAIN HIP JOINT Pain in joint, pelvic region and thigh Diabetes mellitus type 2 in obese Type II or unspecified type diabetes mellitus without mention of complication, not stated as uncontrolled Finger pain, right Pain in limb Diabetes mellitus type 2 in obese- Primary Type II or unspecified type diabetes mellitus without mention of complication, not stated as uncontrolled Hypothyroidism, unspecified type Fibromyalgia Mylagia and myositis, unspecified Hyperlipidemia, unspecified hyperlipidemia type Chronic low back pain, unspecified back pain laterality, unspecified whether sciatica present Cervicalgia Encounter for immunization Need for other specified prophylactic vaccination against single bacterial disease Obesity, Class I, BMI 30-34.9 Obesity, unspecified documented in this encounter [facility] note* Diagnosis HYPOTHYROIDISM NOS- Primary Unspecified hypothyroidism Vitamin D deficiency Unspecified vitamin D deficiency Gastric bypass status for obesity Bariatric surgery status PAIN HIP JOINT Pain in joint, pelvic region and thigh Diabetes mellitus type 2 in obese Type II or unspecified type diabetes mellitus without mention of complication, not stated as uncontrolled Diabetes mellitus type 2 in obese- Primary Type II or unspecified type diabetes mellitus without mention of complication, not stated as uncontrolled Hypothyroidism, unspecified type Fibromyalgia Mylagia and myositis, unspecified Hyperlipidemia, unspecified hyperlipidemia type Chronic low back pain, unspecified back pain laterality, unspecified whether sciatica present Cervicalgia Encounter for immunization Need for other specified prophylactic vaccination against single bacterial disease Obesity, Class I, BMI 30-34.9 Obesity, unspecified Primary hypertension- Primary Unspecified essential hypertension Encounter for screening mammogram for breast cancer Encounter for immunization Need for other specified prophylactic vaccination against single bacterial disease documented in this encounter [facility]* Diagnosis HYPOTHYROIDISM NOS- Primary Unspecified hypothyroidism Vitamin D deficiency Unspecified vitamin D deficiency Gastric bypass status for obesity Bariatric surgery status PAIN HIP JOINT Pain in joint, pelvic region and thigh Diabetes mellitus type 2 in obese Type II or unspecified type diabetes mellitus without mention of complication, not stated as uncontrolled Pneumonia due to COVID-19 virus Diabetes mellitus type 2 in obese- Primary Type II or unspecified type diabetes mellitus without mention of complication, not stated as uncontrolled Hypothyroidism, unspecified type Fibromyalgia Mylagia and myositis, unspecified Hyperlipidemia, unspecified hyperlipidemia type Chronic low back pain, unspecified back pain laterality, unspecified whether sciatica present Cervicalgia Encounter for immunization Need for other specified prophylactic vaccination against single bacterial disease Obesity, Class I, BMI 30-34.9 Obesity, unspecified documented in this encounter [facility] note* Diagnosis HYPOTHYROIDISM NOS- Primary Unspecified hypothyroidism Vitamin D deficiency Unspecified vitamin D deficiency Gastric bypass status for obesity Bariatric surgery status PAIN HIP JOINT Pain in joint, pelvic region and thigh Diabetes mellitus type 2 in obese Type II or unspecified type diabetes mellitus without mention of complication, not stated as uncontrolled Pneumonia of left lung due to infectious organism, unspecified part of lung Diabetes mellitus type 2 in obese- Primary Type II or unspecified type diabetes mellitus without mention of complication, not stated as uncontrolled Hypothyroidism, unspecified type Fibromyalgia Mylagia and myositis, unspecified Hyperlipidemia, unspecified hyperlipidemia type Chronic low back pain, unspecified back pain laterality, unspecified whether sciatica present Cervicalgia Encounter for immunization Need for other specified prophylactic vaccination against single bacterial disease Obesity, Class I, BMI 30-34.9 Obesity, unspecified documented in this encounter [facility] note* Diagnosis HYPOTHYROIDISM NOS- Primary Unspecified hypothyroidism Vitamin D deficiency Unspecified vitamin D deficiency Gastric bypass status for obesity Bariatric surgery status PAIN HIP JOINT Pain in joint, pelvic region and thigh Diabetes mellitus type 2 in obese Type II or unspecified type diabetes mellitus without mention of complication, not stated as uncontrolled Diabetes mellitus type 2 in obese- Primary Type II or unspecified type diabetes mellitus without mention of complication, not stated as uncontrolled Hypothyroidism, unspecified type Fibromyalgia Mylagia and myositis, unspecified Hyperlipidemia, unspecified hyperlipidemia type Chronic low back pain, unspecified back pain laterality, unspecified whether sciatica present Cervicalgia Encounter for immunization Need for other specified prophylactic vaccination against single bacterial disease Obesity, Class I, BMI 30-34.9 Obesity, unspecified Fibromyalgia Mylagia and myositis, unspecified Cervicalgia documented in this encounter [facility] note* Diagnosis HYPOTHYROIDISM NOS- Primary Unspecified hypothyroidism Vitamin D deficiency Unspecified vitamin D deficiency Gastric bypass status for obesity Bariatric surgery status PAIN HIP JOINT Pain in joint, pelvic region and thigh Diabetes mellitus type 2 in obese Type II or unspecified type diabetes mellitus without mention of complication, not stated as uncontrolled Diabetes mellitus type 2 in obese- Primary Type II or unspecified type diabetes mellitus without mention of complication, not stated as uncontrolled Hypothyroidism, unspecified type Fibromyalgia Mylagia and myositis, unspecified Hyperlipidemia, unspecified hyperlipidemia type Chronic low back pain, unspecified back pain laterality, unspecified whether sciatica present Cervicalgia Encounter for immunization Need for other specified prophylactic vaccination against single bacterial disease Obesity, Class I, BMI 30-34.9 Obesity, unspecified Encounter for screening mammogram for breast cancer documented in this encounter [facility] note* Diagnosis HYPOTHYROIDISM NOS- Primary Unspecified hypothyroidism Vitamin D deficiency Unspecified vitamin D deficiency Gastric bypass status for obesity Bariatric surgery status PAIN HIP JOINT Pain in joint, pelvic region and thigh Diabetes mellitus type 2 in obese Type II or unspecified type diabetes mellitus without mention of complication, not stated as uncontrolled Diabetes mellitus type 2 in obese- Primary Type II or unspecified type diabetes mellitus without mention of complication, not stated as uncontrolled Hypothyroidism, unspecified type Fibromyalgia Mylagia and myositis, unspecified Hyperlipidemia, unspecified hyperlipidemia type Chronic low back pain, unspecified back pain laterality, unspecified whether sciatica present Cervicalgia Encounter for immunization Need for other specified prophylactic vaccination against single bacterial disease Obesity, Class I, BMI 30-34.9 Obesity, unspecified Fibromyalgia Mylagia and myositis, unspecified Cervicalgia documented in this encounter [facility] note* Diagnosis HYPOTHYROIDISM NOS- Primary Unspecified hypothyroidism Vitamin D deficiency Unspecified vitamin D deficiency Gastric bypass status for obesity Bariatric surgery status PAIN HIP JOINT Pain in joint, pelvic region and thigh Diabetes mellitus type 2 in obese Type II or unspecified type diabetes mellitus without mention of complication, not stated as uncontrolled Diabetes mellitus type 2 in obese- Primary Type II or unspecified type diabetes mellitus without mention of complication, not stated as uncontrolled Hypothyroidism, unspecified type Fibromyalgia Mylagia and myositis, unspecified Hyperlipidemia, unspecified hyperlipidemia type Chronic low back pain, unspecified back pain laterality, unspecified whether sciatica present Cervicalgia Encounter for immunization Need for other specified prophylactic vaccination against single bacterial disease Obesity, Class I, BMI 30-34.9 Obesity, unspecified Fibromyalgia Mylagia and myositis, unspecified [facility]ervicalgia [facility] Diagnosis HYPOTHYROIDISM NOS- Primary Unspecified hypothyroidism Vitamin D deficiency Unspecified vitamin D deficiency Gastric bypass status for obesity Bariatric surgery status PAIN HIP JOINT Pain in joint, pelvic region and thigh Diabetes mellitus type 2 in obese Type II or unspecified type diabetes mellitus without mention of complication, not stated as uncontrolled Diabetes mellitus type 2 in obese- Primary Type II or unspecified type diabetes mellitus without mention of complication, not stated as uncontrolled Hypothyroidism, unspecified type Fibromyalgia Mylagia and myositis, unspecified Hyperlipidemia, unspecified hyperlipidemia type Chronic low back pain, unspecified back pain laterality, unspecified whether sciatica present Cervicalgia Encounter for immunization Need for other specified prophylactic vaccination against single bacterial disease Obesity, Class I, BMI 30-34.9 Obesity, unspecified Acute non-recurrent maxillary sinusitis- Primary Acute cough Hypothyroidism, unspecified type Diabetes mellitus type 2 in obese (HCC) documented in this encounter [facility] note* Diagnosis HYPOTHYROIDISM NOS- Primary Unspecified hypothyroidism Vitamin D deficiency Unspecified vitamin D deficiency Gastric bypass status for obesity Bariatric surgery status PAIN HIP JOINT Pain in joint, pelvic region and thigh Diabetes mellitus type 2 in obese Type II or unspecified type diabetes mellitus without mention of complication, not stated as uncontrolled Diabetes mellitus type 2 in obese- Primary Type II or unspecified type diabetes mellitus without mention of complication, not stated as uncontrolled Hypothyroidism, unspecified type Fibromyalgia Mylagia and myositis, unspecified Hyperlipidemia, unspecified hyperlipidemia type Chronic low back pain, unspecified back pain laterality, unspecified whether sciatica present Cervicalgia Encounter for immunization Need for other specified prophylactic vaccination against single bacterial disease Obesity, Class I, BMI 30-34.9 Obesity, unspecified Syncope, unspecified syncope type- Primary Fibromyalgia Mylagia and myositis, unspecified Screening for depression Encounter for screening examination for other mental health and behavioral disorders Contusion of face, initial encounter 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) Vitamin D deficiency Unspecified vitamin D deficiency Primary hypertension Unspecified essential hypertension Hypothyroidism, unspecified type Vitamin B12 deficiency Other B-complex deficiencies Ascending aorta dilation Thoracic aortic ectasia Need for COVID-19 vaccine Gastric bypass status for obesity Bariatric surgery status documented in this encounter [facility] note* Diagnosis HYPOTHYROIDISM NOS- Primary Unspecified hypothyroidism Vitamin D deficiency Unspecified vitamin D deficiency Gastric bypass status for obesity Bariatric surgery status PAIN HIP JOINT Pain in joint, pelvic region and thigh Diabetes mellitus type 2 in obese Type II or unspecified type diabetes mellitus without mention of complication, not stated as uncontrolled Diabetes mellitus type 2 in obese- Primary Type II or unspecified type diabetes mellitus without mention of complication, not stated as uncontrolled Hypothyroidism, unspecified type Fibromyalgia Mylagia and myositis, unspecified Hyperlipidemia, unspecified hyperlipidemia type Chronic low back pain, unspecified back pain laterality, unspecified whether sciatica present Cervicalgia Encounter for immunization Need for other specified prophylactic vaccination against single bacterial disease Obesity, Class I, BMI 30-34.9 Obesity, unspecified Fibromyalgia Mylagia and myositis, unspecified Cervicalgia documented in this encounter [facility] note* Diagnosis HYPOTHYROIDISM NOS- Primary Unspecified hypothyroidism Vitamin D deficiency Unspecified vitamin D deficiency Gastric bypass status for obesity Bariatric surgery status PAIN HIP JOINT Pain in joint, pelvic region and thigh Diabetes mellitus type 2 in obese Type II or unspecified type diabetes mellitus without mention of complication, not stated as uncontrolled Diabetes mellitus type 2 in obese- Primary Type II or unspecified type diabetes mellitus without mention of complication, not stated as uncontrolled Hypothyroidism, unspecified type Fibromyalgia Mylagia and myositis, unspecified Hyperlipidemia, unspecified hyperlipidemia type Chronic low back pain, unspecified back pain laterality, unspecified whether sciatica present Cervicalgia Encounter for immunization Need for other specified prophylactic vaccination against single bacterial disease Obesity, Class I, BMI 30-34.9 Obesity, unspecified Fibromyalgia Mylagia and myositis, unspecified documented in this encounter [facility] note* Diagnosis HYPOTHYROIDISM NOS- Primary Unspecified hypothyroidism Vitamin D deficiency Unspecified vitamin D deficiency Gastric bypass status for obesity Bariatric surgery status PAIN HIP JOINT Pain in joint, pelvic region and thigh Diabetes mellitus type 2 in obese Type II or unspecified type diabetes mellitus without mention of complication, not stated as uncontrolled Diabetes mellitus type 2 in obese- Primary Type II or unspecified type diabetes mellitus without mention of complication, not stated as uncontrolled Hypothyroidism, unspecified type Fibromyalgia Mylagia and myositis, unspecified Hyperlipidemia, unspecified hyperlipidemia type Chronic low back pain, unspecified back pain laterality, unspecified whether sciatica present Cervicalgia Encounter for immunization Need for other specified prophylactic vaccination against single bacterial disease Obesity, Class I, BMI 30-34.9 Obesity, unspecified Gastric bypass status for obesity Bariatric surgery status Fibromyalgia Mylagia and myositis, unspecified Cervicalgia [facility] Work Phone: [facility] note* Diagnosis HYPOTHYROIDISM NOS- Primary Unspecified hypothyroidism Vitamin D deficiency Unspecified vitamin D deficiency Gastric bypass status for obesity Bariatric surgery status PAIN HIP JOINT Pain in joint, pelvic region and thigh Diabetes mellitus type 2 in obese Type II or unspecified type diabetes mellitus without mention of complication, not stated as uncontrolled Diabetes mellitus type 2 in obese- Primary Type II or unspecified type diabetes mellitus without mention of complication, not stated as uncontrolled Hypothyroidism, unspecified type Fibromyalgia Mylagia and myositis, unspecified Hyperlipidemia, unspecified hyperlipidemia type Chronic low back pain, unspecified back pain laterality, unspecified whether sciatica present Cervicalgia Encounter for immunization Need for other specified prophylactic vaccination against single bacterial disease Obesity, Class I, BMI 30-34.9 Obesity, unspecified Fibromyalgia Mylagia and myositis, unspecified Cervicalgia documented in this encounter [facility] course Narrative No data available for this section [facility] Discharge instructions No data available for this section [facility] Progress note No data available for this section [facility] Reason for referral (narrative)* Diagnostic Procedure Only (Urgent) - Closed Specialty Diagnoses / Procedures Referred By Contac t Referred To Contact XR IMAGING Diagnoses Finger pain, right Procedures XR HAND GENERAL 3V PA/LAT/OBL RIGHT RADEX HAND MINIMUM 3 VIEWS Filomena Couch APRN.CNP [address] [place] [address] X[facility] Imaging Referral ID Status Reason Start Date Expiration Date V isits Requested Visits Authorized [id number] Closed Auto-Generate d Referral 01/06/2022 02/05/2023 1 1 * Diagnostic Procedure Only (Urgent) - Closed Specialty Diagnoses / Procedures Referred By Contac t Referred To Contact XR IMAGING Diagnoses Finger pain, right Procedures XR DIGIT GENERAL 3V FRONTAL/LAT/OBL RIGHT RADEX FINGR MINIMUM 2 VIEWS Filomena Couch APRN.CNP [address] [place] [address] Xr Imaging Referral ID Status Reason Start Date Expiration Date V isits Requested Visits Authorized [id number] Closed Auto-Generate d Referral 01/06/2022 02/05/2023 1 1 [facility] for referral (narrative)* Diagnostic Procedure Only (Routine) - Pending Review Specialty Diagnoses / Procedures Referred By Melissa t Referred To Contact BR IMAGING Diagnoses Encounter for screening mammogram for breast cancer Procedures JORDAN SCREENING SCREENING MAMMOGRAPHY BI 2-VIEW BREAST INC CAD Jabari Murillo MD [address] [place] [address] [facility] [address] [place] [address] Referral ID Status Reason Start Date Expiration Date Visits Requested Visits Authorized [id number] Pending Review Auto-Generat ed Referral 07/28/2022 08/27/2023 1 1 [facility] for referral (narrative)* Outpatient Procedure (Routine) - Closed Specialty Diagnoses / Procedures Referred By Melissa rizo Referred To Contact [facility] Diagnoses Syncope, unspecified syncope type Palpitations Procedures ECG COMPLETE ECG ROUTINE ECG W/LEAST 12 LDS W/I&R Jabari Murillo MD [address] [place] [address] [facility] [address] [place] [address] Referral ID Status Reason Start Date Expiration Date V isits Requested Visits Authorized [id number] Closed Auto-Generate d Referral 10/24/2022 10/24/2023 1 1 [facility] for referral (narrative)* Outpatient Procedure (Routine) - Pending Review Specialty Diagnoses / Procedures Referred By Melissa t Referred To Contact [facility] Diagnoses Orthostatic intolerance Procedures EPIL EEG W PROCEDURE CARDIOVASCULAR FUNCTION EVAL W/TILT TABLE W/MNTR Lara Rosales APRN.BOBTAIL DRIVER [address] [place] [address] [facility] [address] [place] [id number] Referral ID Status Reason Start Date Expiration Date Visits Requested Visits Authorized [id number] Pending Review Auto-Generat ed Referral 04/10/2023 04/10/2024 1 1 [facility] for referral (narrative)* Diagnostic Procedure Only (Routine) - Pending Review Specialty Diagnoses / Procedures Referred By Contac t Referred To Contact US IMAGING Diagnoses Fatty liver Procedures US ABD RIGHT UPPER QUADRANT US ABDOMINAL REAL TIME W/IMAGE LIMITED Cecilia Barry APRN.BOBTAIL DRIVER [address] [place] [address] [place] [address] Referral ID Status Reason Start Date Expiration Date Visits Requested Visits Authorized [id number] Pending Review Auto-Generat ed Referral 06/21/2023 07/20/2024 1 1 [facility] for referral (narrative)* Diagnostic Procedure Only (Routine) - Closed Specialty Diagnoses / Procedures Referred By Contac t Referred To Contact US IMAGING Diagnoses Fatty liver Procedures US ABD RIGHT UPPER QUADRANT US ABDOMINAL REAL TIME W/IMAGE LIMITED Cecilia Barry APRN.BOBTAIL DRIVER [address] [place] [address] [place] [address] Referral ID Status Reason Start Date Expiration Date V isits Requested Visits Authorized [id number] Closed Auto-Generate d Referral 06/21/2023 07/20/2024 1 1 [facility] for referral (narrative)* Outpatient Procedure (Routine) - Additional Clinical Info Needed Specialty Diagnoses / Procedures Referred By Contac t Referred To Contact [facility] Diagnoses Syncope, unspecified syncope type Procedures ECHO ECHO TTHRC R-T 2D W/WOM-MODE COMPL SPEC&COLR D Jabari Murillo MD [address] [place] [address] [place] [id number] Referral ID Status Reason Start Date Expiration Date Visits Requested Visits Authorized [id number] Additional Clinical Info Needed Auto-Generat ed Referral 3 08/02/2024 1 1 * Outpatient Procedure (Routine) - Pending Review Specialty Diagnoses / Procedures Referred By Melissa t Referred To Contact [facility] Diagnoses Syncope, unspecified syncope type Tachycardia Procedures ECG COMPLETE ECG ROUTINE ECG W/LEAST 12 LDS W/I&R Jabari Murillo MD [address] [place] [address] [place] [id number] Referral ID Status Reason Start Date Expiration Date Visits Requested Visits Authorized [id number] Pending Review Auto-Generat ed Referral 3 08/02/2024 1 1 [facility] for referral (narrative)* Outpatient Procedure (Routine) - Pending Review Specialty Diagnoses / Procedures Referred By Melissa t Referred To Contact [facility] [place] Diagnoses Transient loss of consciousness Orthostatic intolerance Procedures EPIL EEG W PROCEDURE CARDIOVASCULAR FUNCTION EVAL W/TILT TABLE W/MNTR Lara Rosales, SHAWNA [address] [place] [address] [place] [address] Referral ID Status Reason Start Date Expiration Date Visits Requested Visits Authorized [id number] Pending Review Auto-Generat ed Referral 11/03/2023 11/02/2024 1 1 [facility] for referral (narrative)* Outpatient Procedure (Routine) - Authorized Specialty Diagnoses / Procedures Referred By Contac t Referred To Contact [facility] Diagnoses Left arm numbness Procedures EMG(NEURO/NI) NERVE CONDUCTION STUDIES 9-10 STUDIES Marimar Villar, MG.ELECTROLYSIS INVESTIGATOR [address] [place] [address] [facility] [address] [place] [address] Referral ID Status Reason Start Date Expiration Date Visits Requested Visits Authorized [id number] Authorized Auto-Generat ed Referral 01/08/2024 01/07/2025 1 1 [facility] for referral (narrative)* Diagnostic Procedure Only (Urgent) - Closed Specialty Diagnoses / Procedures Referred By Contac t Referred To Contact XR IMAGING Diagnoses Injury of toe on right foot, initial encounter Great toe pain, right Procedures XR TOE AP/LAT/OBL RIGHT RADEX TOE MINIMUM 2 VIEWS Cecilia Whitlock MRI MANAGER.BOBTAIL DRIVER [address] [place] [address] [place] [address] Referral ID Status Reason Start Date Expiration Date V isits Requested Visits Authorized [id number] Closed Auto-Generate d Referral 02/12/2024 03/13/2025 1 1 [facility] for referral (narrative)* Diagnostic Procedure Only (Urgent) - Closed Specialty Diagnoses / Procedures Referred By Contac t Referred To Contact XR IMAGING Diagnoses Injury of toe on right foot, initial encounter Great toe pain, right Procedures XR TOE AP/LAT/OBL RIGHT RADEX TOE MINIMUM 2 VIEWS Cecilia Whitlock APRN.BOBTAIL DRIVER [address] [place] [address] [place] [address] Referral ID Status Reason Start Date Expiration Date V isits Requested Visits Authorized [id number] Closed Auto-Generate d Referral 02/12/2024 03/13/2025 1 1 [facility] for referral (narrative)* Diagnostic Procedure Only (Urgent) - Closed Specialty Diagnoses / Procedures Referred By Contac t Referred To Contact XR IMAGING Diagnoses Finger pain, right Procedures XR HAND GENERAL 3V PA/LAT/OBL RIGHT RADEX HAND MINIMUM 3 VIEWS Filomena Couch APRN.BOBTAIL DRIVER [address] [place] [address] [place] [address] Referral ID Status Reason Start Date Expiration Date V isits Requested Visits Authorized [id number] Closed Auto-Generate d Referral 01/06/2022 02/05/2023 1 1 [facility] for referral (narrative)* Diagnostic Procedure Only (Routine) - Authorized Specialty Diagnoses / Procedures Referred By Daveac t Referred To Contact BR IMAG[facility] Diagnoses Encounter for screening mammogram for breast cancer Procedures JORDAN SCREENING W DENEEN SCREENING DIGITAL BREAST TOMOSYNTHESIS BI SCREENING MAMMOGRAPHY BI 2-VIEW BREAST INC CAD Cecilia Whitlock APRN.BOBTAIL DRIVER [address] [place] [address] [facility] [address] [place] [address] Referral ID Status Reason Start Date Expiration Date Visits Requested Visits Authorized [id number] Authorized OON/Self Pay Override 05/21/2024 06/20/2025 1 1 [facility] for referral (narrative)No reason for referral information availableWMartin Memorial Hospital Work Phone: Reason for visit Narrative* Outpatient Procedure (Routine) - Closed Specialty Diagnoses / Procedures Referred By Contac t Referred To Contact [facility] Diagnoses Syncope, unspecified syncope type Procedures EPIL EEG ROUTINE ELECTROENCEPHALOGRAM REC COMA/SLEEP ONLY Jabari Murillo MD [address] [place] [address] [facility] [address] [place] [address] Referral ID Status Reason Start Date Expiration Date V isits Requested Visits Authorized [id number] Closed Auto-Generate d Referral 11/28/2022 11/29/2023 1 1 [facility] for visit Narrative* Outpatient Procedure (Routine) - Closed Specialty Diagnoses / Procedures Referred By Contac t Referred To Contact [facility] Diagnoses Left arm numbness Procedures EMG(NEURO/NI) NERVE CONDUCTION STUDIES 9-10 STUDIES Marimar Villar, MRI MANAGER.ELECTROLYSIS INVESTIGATOR [address] [place] [id number] [facility] [address] [place], [place] [id number] Referral ID Status Reason Start Date Expiration Date V isits Requested Visits Authorized [id number] Closed Auto-Generate d Referral 01/08/2024 01/07/2025 1 1 [facility] for visit Narrative* Diagnostic Procedure Only (Urgent) - Closed Specialty Diagnoses / Procedures Referred By Contac t Referred To Contact XR IMAGING Diagnoses Injury of toe on right foot, initial encounter Great toe pain, right Procedures XR TOE AP/LAT/OBL RIGHT RADEX TOE MINIMUM 2 VIEWS Cecilia Whitlock, MRI MANAGER.BOBTAIL DRIVER [address] [place] [address] [place] [address] Referral ID Status Reason Start Date Expiration Date V isits Requested Visits Authorized [id number] Closed Auto-Generate d Referral 02/12/2024 03/13/2025 1 1 [facility] for visit Narrative* Diagnostic Procedure Only (Urgent) - Closed Specialty Diagnoses / Procedures Referred By Contac t Referred To Contact XR IMAGING Diagnoses Finger pain, right Procedures XR HAND GENERAL 3V PA/LAT/OBL RIGHT RADEX HAND MINIMUM 3 VIEWS Filomena Couch, MRI MANAGER.BOBTAIL DRIVER [address] [place] [address] [place] [address] Referral ID Status Reason Start Date Expiration Date V isits Requested Visits Authorized [id number] Closed Auto-Generate d Referral 01/06/2022 02/05/2023 1 1 [facility] Diagnostic Procedure Only (Routine) - Closed Specialty Diagnoses / Procedures Referred By Melissa t Referred To Contact BR IMAGING Diagnoses Encounter for screening mammogram for breast cancer Procedures JORDAN SCREENING W DENEEN SCREENING DIGITAL BREAST TOMOSYNTHESIS BI SCREENING MAMMOGRAPHY BI 2-VIEW BREAST INC Cecilia Mancuso, MRI MANAGER.BOBTAIL DRIVER [address] [place] [address] [facility] [address] [place] [address] Referral ID Status Reason Start Date Expiration Date V isits Requested Visits Authorized [id number] Closed OON/Self Pay Override 05/21/2024 06/20/2025 1 1 [facility] Summary Purpose Family History No Family History Records FoundNo Family History Records FoundNo Family History Records FoundNo Family History Records FoundNo Family History Records FoundNo Family History Records FoundNo Family History Records Found Advance Directives No Advanced Directives Records FoundDocuments on File Type Date Recorded Patient Insurance Follow Up Representative Expl anation Advance Directive(s) Advance Directive(s) 10/21/2021 7:48 AM Advance Directive(s) 12/02/2020 7:57 AM Advance Directive(s) 11/24/2020 3:21 PM Advance Directive(s) 10/29/2020 8:47 AM Advance Directive(s) 01/05/2016 1:55 PM Documents on File Type Date Recorded Patient Insurance Follow Up Representative Expl anation Advance Directive(s) Advance Directive(s) 10/21/2021 7:48 AM Advance Directive(s) 12/02/2020 7:57 AM Advance Directive(s) 11/24/2020 3:21 PM Advance Directive(s) 10/29/2020 8:47 AM Advance Directive(s) 01/05/2016 1:55 PM Advance Directive Response Recorded Date/ Time Advance Directives No September 05, 2014 4:01pm Health Concerns Infection Onset Date Last Indicated Resolved Time COVID-19 Rule-Out 12/08/2021 12/08/2021 Infection Onset Date Last Indicated Resolved Time COVID-19 Rule-Out 12/08/2021 12/08/2021 Infection Onset Date Last Indicated Resolved Time COVID-19 Rule-Out 03/31/2021 03/31/202104/0104/01/2021 5:15 AM EDT COVID-19 Rule-Out 08/17/2021 08/17/2021 08/18/2021 9:41 PM EST COVID-19 Rule-Out 12/08/2021 12/08/2021 Medications Administered Section Inactive Administered Medications - up to 3 most recent administrations Medication Order MAR Action Action Date Dose Rate Site cyanocobalamin 1,000 mcg injection 1,000 mcg, INTRAMUSCULAR, ONCE, 1 dose, On Mon04/04/23 at 0900 Given 04/04/2023 9:08 AM EDT 1,000 mcg Deltoid, Left Reason for Referral Specialty Diagnoses / Procedures Referred By Contac t Referred To Contact [facility] Diagnoses Cervicalgia Cervical radiculopathy DDD (degenerative disc disease), cervical Procedures CONSULT TO PHYSICAL THERAPY PHYSICAL THERAPY EVALUATION [facility] [place] 45 MINS Alycia Rojas APRN.BOBTAIL DRIVER [address] [place] [address] [facility] [address] [place] [address] Referral ID Status Reason Start Date Expiration Date Visits Requested Visits Authorized [id number] Pending Review Auto-Generat ed Referral 03/13/2024 03/13/2025 1 1 Specialty Diagnoses / Procedures Referred By Contac t Referred To Contact Ent - Otolaryngology Diagnoses Nasal pain Procedures CONSULT TO ENT OFFICE/OUTPATIENT [facility] 60 MINUTES Cecilia Whitlock MRI MANAGER.BOBTAIL DRIVER [address] [place] [address] Referral ID Status Reason Start Date Expiration Date Visits Requested Visits Authorized [id number] Authorized PCP Requested Referral 11/06/2023 11/05/2024 1 1 Specialty Diagnoses / Procedures Referred By Contac t Referred To Contact Cecilia Whitlock APRN.BOBTAIL DRIVER [address] [place] [address] Referral ID Status Reason Start Date Expiration Date Visits Re quested Visits Authorized [id number] Closed 1 1 Specialty Diagnoses / Procedures Referred By Contac t Referred To Contact Dermatology Diagnoses Rash and nonspecific skin eruption Procedures CONSULT TO DERMATOLOGY OFFICE/OUTPATIENT [facility] 60-74 MINUTES Cecilia Barry APRN.CNP [address] [place] [address] Referral ID Status Reason Start Date Expiration Date Visits Requested Visits Authorized [id number] Authorized PCP Requested Referral 3 06/19/2024 1 1 Specialty Diagnoses / Procedures Referred By Contac t Referred To Contact [facility] Diagnoses Fibromyalgia Procedures CONSULT TO [facility]IN) OFFICE/OUTPATIENT [facility] 60-74 MINUTES Yrn Soni MD [address] [place] [address] Referral ID Status Reason Start Date Expiration Date Visits Requested Visits Authorized [id number] Pending Review PCP Requested Referral 3 06/06/2024 1 1 Specialty Diagnoses / Procedures Referred By Contac t Referred To Contact Pain Management Diagnoses Cervicalgia Chronic low back pain, unspecified back pain laterality, unspecified whether sciatica present Procedures CONSULT TO PAIN MGT OFFICE/OUTPATIENT [facility] 60-74 MINUTES Jabari Murillo MD [address] [place] [address] Referral ID Status Reason Start Date Expiration Date Visits Requested Visits Authorized [id number] Authorized PCP Requested Referral 04/27/2023 04/26/2024 1 1 Specialty Diagnoses / Procedures Referred By Contac t Referred To Contact Ophthalmology Diagnoses Diabetes mellitus type 2 in obese (HCC) Procedures CONSULT TO OPHTHALMOLOGY OFFICE/OUTPATIENT [facility] 60-74 MINUTES Jabari Murillo MD [address] [place] [address] Referral ID Status Reason Start Date Expiration Date Visits Requested Visits Authorized [id number] Authorized PCP Requested Referral 04/27/2023 04/26/2024 1 1 Specialty Diagnoses / Procedures Referred By Contac t Referred To Contact [facility] Diagnoses Encounter for screening mammogram for malignant neoplasm of breast Procedures JORDAN SCREENING W DENEEN SCREENING DIGITAL BREAST TOMOSYNTHESIS BI SCREENING MAMMOGRAPHY BI 2-VIEW BREAST INC CAD Jabari Murillo MD [address] [place] [address] [facility] [address] [place] [address] Referral ID Status Reason Start Date Expiration Date Visits Requested Visits Authorized [id number] Authorized Auto-Generat ed Referral 04/27/2023 05/26/2024 1 1 Chief Complaint and Reason for Visit Chief Complaint Admit Date NECK AND BACK PAIN. RX HERE March 20, 2 025 10:30am Additional Source Comments INFORMATION SOURCE (unrecogn ized section and content) DATE CREATED AUTHOR 05/08/2020 [facility] DATE CREATED AUTHOR AUTHOR'S ORGANIZ ATION 12/08/2020 [facility] DATE CREATED AUTHOR AUTHOR'S ORGANIZ ATION 10/27/2021 [facility] DATE CREATED AUTHOR AUTHOR'S ORGANIZ ATION 12/01/2022 [facility] DATE CREATED AUTHOR AUTHOR'S ORGANIZ ATION 07/11/2024 [facility] DATE CREATED AUTHOR AUTHOR'S ORGANIZ ATION 06/27/2025 [facility] DATE CREATED AUTHOR AUTHOR'S ORGANIZ ATION 07/03/2025 [facility] Source Comments (unrecognize d section and content) In the event this informatio n is protected by the Federal Confidentiality of Alcohol and Drug Abuse Patient Records regulations: The Federal rules restrict any use of the information to criminally investigate or prosecute any alcohol or drug abuse patient.[facility] CenterIn the event this information is protected by the Federal Confidentiality of Alcohol and Drug Abuse Patient Records regulations: The Federal rules restrict any use of the information to criminally investigate or prosecute any alcohol or drug abuse patient.[facility] CenterIn the event this information is protected by the Federal Confidentiality of Alcohol and Drug Abuse Patient Records regulations: The Federal rules restrict any use of the information to criminally investigate or prosecute any alcohol or drug abuse patient.[facility] CenterIn the event this information is protected by the Federal Confidentiality of Alcohol and Drug Abuse Patient Records regulations: The Federal rules restrict any use of the information to criminally investigate or prosecute any alcohol or drug abuse patient.[facility] CenterIn the event this information is protected by the Federal Confidentiality of Alcohol and Drug Abuse Patient Records regulations: The Federal rules restrict any use of the information to criminally investigate or prosecute any alcohol or drug abuse patient.[facility] CenterIn the event this information is protected by the Federal Confidentiality of Alcohol and Drug Abuse Patient Records regulations: The Federal rules restrict any use of the information to criminally investigate or prosecute any alcohol or drug abuse patient.[facility] CenterIn the event this information is protected by the Federal Confidentiality of Alcohol and Drug Abuse Patient Records regulations: The Federal rules restrict any use of the information to criminally investigate or prosecute any alcohol or drug abuse patient.[facility] CenterIn the event this information is protected by the Federal Confidentiality of Alcohol and Drug Abuse Patient Records regulations: The Federal rules restrict any use of the information to criminally investigate or prosecute any alcohol or drug abuse patient.[facility] CenterIn the event this information is protected by the Federal Confidentiality of Alcohol and Drug Abuse Patient Records regulations: The Federal rules restrict any use of the information to criminally investigate or prosecute any alcohol or drug abuse patient.[facility] CenterIn the event this information is protected by the Federal Confidentiality of Alcohol and Drug Abuse Patient Records regulations: The Federal rules restrict any use of the information to criminally investigate or prosecute any alcohol or drug abuse patient.[facility] CenterIn the event this information is protected by the Federal Confidentiality of Alcohol and Drug Abuse Patient Records regulations: The Federal rules restrict any use of the information to criminally investigate or prosecute any alcohol or drug abuse patient.[facility] CenterIn the event this information is protected by the Federal Confidentiality of Alcohol and Drug Abuse Patient Records regulations: The Federal rules restrict any use of the information to criminally investigate or prosecute any alcohol or drug abuse patient.[facility] CenterIn the event this information is protected by the Federal Confidentiality of Alcohol and Drug Abuse Patient Records regulations: The Federal rules restrict any use of the information to criminally investigate or prosecute any alcohol or drug abuse patient.[facility] CenterIn the event this information is protected by the Federal Confidentiality of Alcohol and Drug Abuse Patient Records regulations: The Federal rules restrict any use of the information to criminally investigate or prosecute any alcohol or drug abuse patient.[facility] CenterIn the event this information is protected by the Federal Confidentiality of Alcohol and Drug Abuse Patient Records regulations: The Federal rules restrict any use of the information to criminally investigate or prosecute any alcohol or drug abuse patient.[facility] CenterIn the event this information is protected by the Federal Confidentiality of Alcohol and Drug Abuse Patient Records regulations: The Federal rules restrict any use of the information to criminally investigate or prosecute any alcohol or drug abuse patient.[facility] CenterIn the event this information is protected by the Federal Confidentiality of Alcohol and Drug Abuse Patient Records regulations: The Federal rules restrict any use of the information to criminally investigate or prosecute any alcohol or drug abuse patient.[facility] CenterIn the event this information is protected by the Federal Confidentiality of Alcohol and Drug Abuse Patient Records regulations: The Federal rules restrict any use of the information to criminally investigate or prosecute any alcohol or drug abuse patient.[facility] CenterIn the event this information is protected by the Federal Confidentiality of Alcohol and Drug Abuse Patient Records regulations: The Federal rules restrict any use of the information to criminally investigate or prosecute any alcohol or drug abuse patient.[facility] CenterIn the event this information is protected by the Federal Confidentiality of Alcohol and Drug Abuse Patient Records regulations: The Federal rules restrict any use of the information to criminally investigate or prosecute any alcohol or drug abuse patient.[facility] CenterIn the event this information is protected by the Federal Confidentiality of Alcohol and Drug Abuse Patient Records regulations: The Federal rules restrict any use of the information to criminally investigate or prosecute any alcohol or drug abuse patient.[facility] CenterIn the event this information is protected by the Federal Confidentiality of Alcohol and Drug Abuse Patient Records regulations: The Federal rules restrict any use of the information to criminally investigate or prosecute any alcohol or drug abuse patient.[facility] CenterIn the event this information is protected by the Federal Confidentiality of Alcohol and Drug Abuse Patient Records regulations: The Federal rules restrict any use of the information to criminally investigate or prosecute any alcohol or drug abuse patient.[facility] CenterIn the event this information is protected by the Federal Confidentiality of Alcohol and Drug Abuse Patient Records regulations: The Federal rules restrict any use of the information to criminally investigate or prosecute any alcohol or drug abuse patient.[facility] CenterIn the event this information is protected by the Federal Confidentiality of Alcohol and Drug Abuse Patient Records regulations: The Federal rules restrict any use of the information to criminally investigate or prosecute any alcohol or drug abuse patient.[facility] CenterIn the event this information is protected by the Federal Confidentiality of Alcohol and Drug Abuse Patient Records regulations: The Federal rules restrict any use of the information to criminally investigate or prosecute any alcohol or drug abuse patient.[facility] CenterIn the event this information is protected by the Federal Confidentiality of Alcohol and Drug Abuse Patient Records regulations: The Federal rules restrict any use of the information to criminally investigate or prosecute any alcohol or drug abuse patient.[facility] CenterIn the event this information is protected by the Federal Confidentiality of Alcohol and Drug Abuse Patient Records regulations: The Federal rules restrict any use of the information to criminally investigate or prosecute any alcohol or drug abuse patient.[facility] CenterIn the event this information is protected by the Federal Confidentiality of Alcohol and Drug Abuse Patient Records regulations: The Federal rules restrict any use of the information to criminally investigate or prosecute any alcohol or drug abuse patient.[facility] CenterIn the event this information is protected by the Federal Confidentiality of Alcohol and Drug Abuse Patient Records regulations: The Federal rules restrict any use of the information to criminally investigate or prosecute any alcohol or drug abuse patient.[facility] CenterIn the event this information is protected by the Federal Confidentiality of Alcohol and Drug Abuse Patient Records regulations: The Federal rules restrict any use of the information to criminally investigate or prosecute any alcohol or drug abuse patient.[facility] CenterIn the event this information is protected by the Federal Confidentiality of Alcohol and Drug Abuse Patient Records regulations: The Federal rules restrict any use of the information to criminally investigate or prosecute any alcohol or drug abuse patient.[facility] CenterIn the event this information is protected by the Federal Confidentiality of Alcohol and Drug Abuse Patient Records regulations: The Federal rules restrict any use of the information to criminally investigate or prosecute any alcohol or drug abuse patient.[facility] CenterIn the event this information is protected by the Federal Confidentiality of Alcohol and Drug Abuse Patient Records regulations: The Federal rules restrict any use of the information to criminally investigate or prosecute any alcohol or drug abuse patient.[facility] CenterIn the event this information is protected by the Federal Confidentiality of Alcohol and Drug Abuse Patient Records regulations: The Federal rules restrict any use of the information to criminally investigate or prosecute any alcohol or drug abuse patient.[facility] CenterIn the event this information is protected by the Federal Confidentiality of Alcohol and Drug Abuse Patient Records regulations: The Federal rules restrict any use of the information to criminally investigate or prosecute any alcohol or drug abuse patient.[facility] CenterIn the event this information is protected by the Federal Confidentiality of Alcohol and Drug Abuse Patient Records regulations: The Federal rules restrict any use of the information to criminally investigate or prosecute any alcohol or drug abuse patient.[facility] CenterIn the event this information is protected by the Federal Confidentiality of Alcohol and Drug Abuse Patient Records regulations: The Federal rules restrict any use of the information to criminally investigate or prosecute any alcohol or drug abuse patient.[facility] CenterIn the event this information is protected by the Federal Confidentiality of Alcohol and Drug Abuse Patient Records regulations: The Federal rules restrict any use of the information to criminally investigate or prosecute any alcohol or drug abuse patient.[facility] CenterIn the event this information is protected by the Federal Confidentiality of Alcohol and Drug Abuse Patient Records regulations: The Federal rules restrict any use of the information to criminally investigate or prosecute any alcohol or drug abuse patient.[facility] CenterIn the event this information is protected by the Federal Confidentiality of Alcohol and Drug Abuse Patient Records regulations: The Federal rules restrict any use of the information to criminally investigate or prosecute any alcohol or drug abuse patient.[facility] CenterIn the event this information is protected by the Federal Confidentiality of Alcohol and Drug Abuse Patient Records regulations: The Federal rules restrict any use of the information to criminally investigate or prosecute any alcohol or drug abuse patient.[facility] CenterIn the event this information is protected by the Federal Confidentiality of Alcohol and Drug Abuse Patient Records regulations: The Federal rules restrict any use of the information to criminally investigate or prosecute any alcohol or drug abuse patient.[facility] CenterIn the event this information is protected by the Federal Confidentiality of Alcohol and Drug Abuse Patient Records regulations: The Federal rules restrict any use of the information to criminally investigate or prosecute any alcohol or drug abuse patient.[facility] CenterIn the event this information is protected by the Federal Confidentiality of Alcohol and Drug Abuse Patient Records regulations: The Federal rules restrict any use of the information to criminally investigate or prosecute any alcohol or drug abuse patient.[facility] CenterIn the event this information is protected by the Federal Confidentiality of Alcohol and Drug Abuse Patient Records regulations: The Federal rules restrict any use of the information to criminally investigate or prosecute any alcohol or drug abuse patient.[facility] CenterIn the event this information is protected by the Federal Confidentiality of Alcohol and Drug Abuse Patient Records regulations: The Federal rules restrict any use of the information to criminally investigate or prosecute any alcohol or drug abuse patient.[facility] CenterIn the event this information is protected by the Federal Confidentiality of Alcohol and Drug Abuse Patient Records regulations: The Federal rules restrict any use of the information to criminally investigate or prosecute any alcohol or drug abuse patient.[facility] CenterIn the event this information is protected by the Federal Confidentiality of Alcohol and Drug Abuse Patient Records regulations: The Federal rules restrict any use of the information to criminally investigate or prosecute any alcohol or drug abuse patient.[facility] CenterIn the event this information is protected by the Federal Confidentiality of Alcohol and Drug Abuse Patient Records regulations: The Federal rules restrict any use of the information to criminally investigate or prosecute any alcohol or drug abuse patient.[facility] CenterIn the event this information is protected by the Federal Confidentiality of Alcohol and Drug Abuse Patient Records regulations: The Federal rules restrict any use of the information to criminally investigate or prosecute any alcohol or drug abuse patient.[facility] CenterIn the event this information is protected by the Federal Confidentiality of Alcohol and Drug Abuse Patient Records regulations: The Federal rules restrict any use of the information to criminally investigate or prosecute any alcohol or drug abuse patient.[facility] CenterIn the event this information is protected by the Federal Confidentiality of Alcohol and Drug Abuse Patient Records regulations: The Federal rules restrict any use of the information to criminally investigate or prosecute any alcohol or drug abuse patient.[facility] CenterIn the event this information is protected by the Federal Confidentiality of Alcohol and Drug Abuse Patient Records regulations: The Federal rules restrict any use of the information to criminally investigate or prosecute any alcohol or drug abuse patient.[facility] CenterIn the event this information is protected by the Federal Confidentiality of Alcohol and Drug Abuse Patient Records regulations: The Federal rules restrict any use of the information to criminally investigate or prosecute any alcohol or drug abuse patient.[facility] CenterIn the event this information is protected by the Federal Confidentiality of Alcohol and Drug Abuse Patient Records regulations: The Federal rules restrict any use of the information to criminally investigate or prosecute any alcohol or drug abuse patient.[facility] CenterIn the event this information is protected by the Federal Confidentiality of Alcohol and Drug Abuse Patient Records regulations: The Federal rules restrict any use of the information to criminally investigate or prosecute any alcohol or drug abuse patient.[facility] CenterIn the event this information is protected by the Federal Confidentiality of Alcohol and Drug Abuse Patient Records regulations: The Federal rules restrict any use of the information to criminally investigate or prosecute any alcohol or drug abuse patient.[facility] CenterIn the event this information is protected by the Federal Confidentiality of Alcohol and Drug Abuse Patient Records regulations: The Federal rules restrict any use of the information to criminally investigate or prosecute any alcohol or drug abuse patient.[facility] CenterIn the event this information is protected by the Federal Confidentiality of Alcohol and Drug Abuse Patient Records regulations: The Federal rules restrict any use of the information to criminally investigate or prosecute any alcohol or drug abuse patient.[facility] CenterIn the event this information is protected by the Federal Confidentiality of Alcohol and Drug Abuse Patient Records regulations: The Federal rules restrict any use of the information to criminally investigate or prosecute any alcohol or drug abuse patient.[facility] CenterIn the event this information is protected by the Federal Confidentiality of Alcohol and Drug Abuse Patient Records regulations: The Federal rules restrict any use of the information to criminally investigate or prosecute any alcohol or drug abuse patient.[facility] CenterIn the event this information is protected by the Federal Confidentiality of Alcohol and Drug Abuse Patient Records regulations: The Federal rules restrict any use of the information to criminally investigate or prosecute any alcohol or drug abuse patient.[facility] CenterIn the event this information is protected by the Federal Confidentiality of Alcohol and Drug Abuse Patient Records regulations: The Federal rules restrict any use of the information to criminally investigate or prosecute any alcohol or drug abuse patient.[facility] CenterIn the event this information is protected by the Federal Confidentiality of Alcohol and Drug Abuse Patient Records regulations: The Federal rules restrict any use of the information to criminally investigate or prosecute any alcohol or drug abuse patient.[facility] CenterIn the event this information is protected by the Federal Confidentiality of Alcohol and Drug Abuse Patient Records regulations: The Federal rules restrict any use of the information to criminally investigate or prosecute any alcohol or drug abuse patient.[facility] CenterIn the event this information is protected by the Federal Confidentiality of Alcohol and Drug Abuse Patient Records regulations: The Federal rules restrict any use of the information to criminally investigate or prosecute any alcohol or drug abuse patient.[facility] CenterIn the event this information is protected by the Federal Confidentiality of Alcohol and Drug Abuse Patient Records regulations: The Federal rules restrict any use of the information to criminally investigate or prosecute any alcohol or drug abuse patient.[facility] CenterIn the event this information is protected by the Federal Confidentiality of Alcohol and Drug Abuse Patient Records regulations: The Federal rules restrict any use of the information to criminally investigate or prosecute any alcohol or drug abuse patient.[facility] CenterIn the event this information is protected by the Federal Confidentiality of Alcohol and Drug Abuse Patient Records regulations: The Federal rules restrict any use of the information to criminally investigate or prosecute any alcohol or drug abuse patient.[facility] CenterIn the event this information is protected by the Federal Confidentiality of Alcohol and Drug Abuse Patient Records regulations: The Federal rules restrict any use of the information to criminally investigate or prosecute any alcohol or drug abuse patient.[facility] CenterIn the event this information is protected by the Federal Confidentiality of Alcohol and Drug Abuse Patient Records regulations: The Federal rules restrict any use of the information to criminally investigate or prosecute any alcohol or drug abuse patient.[facility] CenterIn the event this information is protected by the Federal Confidentiality of Alcohol and Drug Abuse Patient Records regulations: The Federal rules restrict any use of the information to criminally investigate or prosecute any alcohol or drug abuse patient.[facility] CenterIn the event this information is protected by the Federal Confidentiality of Alcohol and Drug Abuse Patient Records regulations: The Federal rules restrict any use of the information to criminally investigate or prosecute any alcohol or drug abuse patient.[facility] CenterIn the event this information is protected by the Federal Confidentiality of Alcohol and Drug Abuse Patient Records regulations: The Federal rules restrict any use of the information to criminally investigate or prosecute any alcohol or drug abuse patient.[facility] CenterIn the event this information is protected by the Federal Confidentiality of Alcohol and Drug Abuse Patient Records regulations: The Federal rules restrict any use of the information to criminally investigate or prosecute any alcohol or drug abuse patient.[facility] CenterIn the event this information is protected by the Federal Confidentiality of Alcohol and Drug Abuse Patient Records regulations: The Federal rules restrict any use of the information to criminally investigate or prosecute any alcohol or drug abuse patient.[facility] CenterIn the event this information is protected by the Federal Confidentiality of Alcohol and Drug Abuse Patient Records regulations: The Federal rules restrict any use of the information to criminally investigate or prosecute any alcohol or drug abuse patient.[facility] CenterIn the event this information is protected by the Federal Confidentiality of Alcohol and Drug Abuse Patient Records regulations: The Federal rules restrict any use of the information to criminally investigate or prosecute any alcohol or drug abuse patient.[facility] CenterIn the event this information is protected by the Federal Confidentiality of Alcohol and Drug Abuse Patient Records regulations: The Federal rules restrict any use of the information to criminally investigate or prosecute any alcohol or drug abuse patient.[facility] CenterIn the event this information is protected by the Federal Confidentiality of Alcohol and Drug Abuse Patient Records regulations: The Federal rules restrict any use of the information to criminally investigate or prosecute any alcohol or drug abuse patient.[facility] CenterIn the event this information is protected by the Federal Confidentiality of Alcohol and Drug Abuse Patient Records regulations: The Federal rules restrict any use of the information to criminally investigate or prosecute any alcohol or drug abuse patient.[facility] CenterIn the event this information is protected by the Federal Confidentiality of Alcohol and Drug Abuse Patient Records regulations: The Federal rules restrict any use of the information to criminally investigate or prosecute any alcohol or drug abuse patient.[facility] CenterIn the event this information is protected by the [facility] Confidentiality of Alcohol and Drug Abuse Patient Records regulations: The Federal rules restrict any use of the information to criminally investigate or prosecute any alcohol or drug abuse patient.[facility] CenterIn the event this information is protected by the Federal Confidentiality of Alcohol and Drug Abuse Patient Records regulations: The Federal rules restrict any use of the information to criminally investigate or prosecute any alcohol or drug abuse patient.[facility] Care Teams (unrecognized sec tion and content) Umbrella Mender Relationship Specialty Start Date End Date Jabari Murillo MD [address] [place], [place] [id number] PCP - General Internal Medicine 12/02/11 Umbrella Mender Relationship Specialty Start Date End Date Jabari Murillo MD [address] [place], [place] [id number] PCP - General Internal Medicine 12/02/11 Umbrella Mender Relationship Specialty Start Date End Date Jabari Murillo MD [address] [place], [place] [id number] PCP - General Internal Medicine 12/02/11 Umbrella Mender Relationship Specialty Start Date End Date Jabari Murillo MD [address] [facility] [place] [address] PCP - General Internal Medicine 12/02/11 Umbrella Mender Relationship Specialty Start Date End Date Jabari Murillo MD [address] [facility] [place] [address] PCP - General Internal Medicine 12/02/11 Umbrella Mender Relationship Specialty Start Date End Date Jabari Murillo MD [address] [facility] [place] [address] PCP - General Internal Medicine 12/02/11 Umbrella Mender Relationship Specialty Start Date End Date Jabrai Murillo MD [address] [facility] [place] [address] PCP - General Internal Medicine 12/02/11 Umbrella Mender Relationship Specialty Start Date End Date Jabari Murillo MD [address] [facility] [place] [address] PCP - General Internal Medicine 12/02/11 Umbrella Mender Relationship Specialty Start Date End Date Jabari Murillo MD [address] [facility] [place] [address] PCP - General Internal Medicine 12/02/11 Umbrella Mender Relationship Specialty Start Date End Date Jabari Murillo MD [address] [facility] [place] [address] PCP - General Internal Medicine 12/02/11 Umbrella Mender Relationship Specialty Start Date End Date Jabari Murillo MD [address] [facility] [place] [address] PCP - General Internal Medicine 12/02/11 Umbrella Mender Relationship Specialty Start Date End Date Jabari Murillo MD [address] [facility] [place] [address] PCP - General Internal Medicine 12/02/11 Umbrella Mender Relationship Specialty Start Date End Date Jabari Murillo MD [address] [facility] [place] [address] PCP - General Internal Medicine 12/02/11 Umbrella Mender Relationship Specialty Start Date End Date Jabari Murillo MD [address] [facility] [place] [address] PCP - General Internal Medicine 12/02/11 Umbrella Mender Relationship Specialty Start Date End Date Jabari Murillo MD [address] [facility] [place] [address] PCP - General Internal Medicine 12/02/11 Umbrella Mender Relationship Specialty Start Date End Date Jabari Murillo MD [address] [facility] [place] [address] PCP - General Internal Medicine 12/02/11 Umbrella Mender Relationship Specialty Start Date End Date Jabari Murillo MD [address] [facility] [place] [address] PCP - General Internal Medicine 12/02/11 Umbrella Mender Relationship Specialty Start Date End Date Jabari Murillo MD [address] [facility] [place] [address] PCP - General Internal Medicine 12/02/11 Umbrella Mender Relationship Specialty Start Date End Date Jabari Murillo MD [address] [facility] [place] [address] PCP - General Internal Medicine 12/02/11 Umbrella Mender Relationship Specialty Start Date End Date Jabari Murillo MD [address] [facility] [place] [address] PCP - General Internal Medicine 12/02/11 Umbrella Mender Relationship Specialty Start Date End Date Jabari Murillo MD [address] [facility] [place] [address] PCP - General Internal Medicine 12/02/11 Umbrella Mender Relationship Specialty Start Date End Date Jabari Murillo MD [address] [facility] [place] [address] PCP - General Internal Medicine 12/02/11 Umbrella Mender Relationship Specialty Start Date End Date Jabari Murillo MD [address] [facility] [place] [address] PCP - General Internal Medicine 12/02/11 Umbrella Mender Relationship Specialty Start Date End Date Jabari Murillo MD [address] [place] [address] PCP - General Internal Medicine 12/02/11 Umbrella Mender Relationship Specialty Start Date End Date Jabari Murillo MD [address] [facility] [place] [address] PCP - General Internal Medicine 12/02/11 Umbrella Mender Relationship Specialty Start Date End Date Jabari Murillo MD [address] [facility] [place] [address] PCP - General Internal Medicine 12/02/11 Umbrella Mender Relationship Specialty Start Date End Date Jabari Murillo MD [address] [facility] [place] [address] PCP - General Internal Medicine 12/02/11 Umbrella Mender Relationship Specialty Start Date End Date Jabari Murillo MD [address] [place] [address] PCP - General Internal Medicine 12/02/11 Yrn Soni MD [address] [place] [address] Pain Management 06/06/23 [place] [address] [address] Pain Management 06/06/23 Umbrella Mender Relationship Specialty Start Date End Date Jabari Murillo MD [address] [place] [address] PCP - General Internal Medicine 12/02/11 Yrn Soni MD [address] [place] [address] Pain Management 06/06/23 [place] [address] [address] [address] Pain Management 06/06/23 Umbrella Mender Relationship Specialty Start Date End Date Jabari Murillo MD [address] [place] [address] PCP - General Internal Medicine 12/02/11 Yrn Soni MD [address] [place] [address] Pain Management 06/06/23 [place] [address] [address] [address] Pain Management 06/06/23 Umbrella Mender Relationship Specialty Start Date End Date Jabari Murillo MD [address] [place] [address] PCP - General Internal Medicine 12/02/11 Yrn Soni MD [address] [place] [address] Pain Management 06/06/23 [place] [address] [address] [facility] [address] [place] [address] Pain Management 06/06/23 Umbrella Mender Relationship Specialty Start Date End Date Jabari Murillo MD [address] [place] [address] PCP - General Internal Medicine 12/02/11 Yrn Soni MD [address] [place] [address] Pain Management 06/06/23 [place] [address] [address] [address] Pain Management 06/06/23 Umbrella Mender Relationship Specialty Start Date End Date Jabari Murillo MD [address] [place] [address] PCP - General Internal Medicine 12/02/11 Yrn Soni MD [address] [place] [address] Pain Management 06/06/23 [place] [address] [address] [address] Pain Management 06/06/23 Umbrella Mender Relationship Specialty Start Date End Date Jabari Murillo MD [address] [place] [address] PCP - General Internal Medicine 12/02/11 Yrn Soni MD [address] [place] [address] Pain Management 06/06/23 [place] [address] [address] [address] Pain Management 06/06/23 Umbrella Mender Relationship Specialty Start Date End Date Jabari Murillo MD [address] [place] [address] PCP - General Internal Medicine 12/02/11 Yrn Soni MD [address] [place] [address] Pain Management 06/06/23 [place] [address] [address] [address] Pain Management 06/06/23 Umbrella Mender Relationship Specialty Start Date End Date Jabari Murillo MD [address] [place] [address] PCP - General Internal Medicine 12/02/11 Yrn Soni MD [address] [place] [address] Pain Management 06/06/23 [place] [address] [address] [address] Pain Management 06/06/23 Umbrella Mender Relationship Specialty Start Date End Date Jabari Murillo MD [address] [place] [address] PCP - General Internal Medicine 12/02/11 Yrn Soni MD [address] [place] [address] Pain Management 06/06/23 [place] [address] [address] [address] Pain Management 06/06/23 Umbrella Mender Relationship Specialty Start Date End Date Jabari Murillo MD [address] [place] [address] PCP - General Internal Medicine 12/02/11 Yrn Soni MD [address] [place] [address] Pain Management 06/06/23 [place] [address] [address] [address] Pain Management 06/06/23 Umbrella Mender Relationship Specialty Start Date End Date Jabari Murillo MD [address] [place] [address] PCP - General Internal Medicine 12/02/11 Yrn Soni MD [address] [place] [address] Pain Management 06/06/23 [place] [address] [address] [address] Pain Management 06/06/23 Umbrella Mender Relationship Specialty Start Date End Date Jabari Murillo MD [address] [place] [address] PCP - General Internal Medicine 12/02/11 Yrn Soni MD [address] [place] [address] Pain Management 06/06/23 [place] [address] [address] [address] Pain Management 06/06/23 Umbrella Mender Relationship Specialty Start Date End Date Jabari Murillo MD [address] [place] [address] PCP - General Internal Medicine 12/02/11 Yrn Soni MD [address] [place] [address] Pain Management 06/06/23 [place] [address] [address] [address] Pain Management 06/06/23 Umbrella Mender Relationship Specialty Start Date End Date Jabari Murillo MD [address] [place] [address] PCP - General Internal Medicine 12/02/11 Umbrella Mender Relationship Specialty Start Date End Date Jabari Murillo MD [address] [place] [address] PCP - General Internal Medicine 12/02/11 Yrn Soni MD [address] [place] [address] Pain Management 06/06/23 [place] [address] [address] [place] [address] Pain Management 06/06/23 Umbrella Mender Relationship Specialty Start Date End Date Jabari Murillo MD [address] [place] [address] PCP - General Internal Medicine 12/02/11 Yrn Soni MD [address] [place] [address] Pain Management 06/06/23 [place] [address] [address] [place] [address] Pain Management 06/06/23 Umbrella Mender Relationship Specialty Start Date End Date Jabari Murillo MD [address] [place] [address] PCP - General Internal Medicine 12/02/11 Yrn Soni MD [address] [place] [address] Pain Management 06/06/23 [place] [address] [address] [place] [address] Pain Management 06/06/23 Umbrella Mender Relationship Specialty Start Date End Date Jabari Murillo MD [address] [place] [address] PCP - General Internal Medicine 12/02/11 Yrn Soni MD [address] [place] [address] Pain Management 06/06/23 [place] [address] [address] [address] Pain Management 06/06/23 Umbrella Mender Relationship Specialty Start Date End Date Jabari Murillo MD [address] [place] [address] PCP - General Internal Medicine 12/02/11 Yrn Soni MD [address] [place] [address] Pain Management 06/06/23 [place] [address] [address] [address] Pain Management 06/06/23 Umbrella Mender Relationship Specialty Start Date End Date Jabari Murillo MD [address] [place] [address] PCP - General Internal Medicine 12/02/11 Yrn Soni MD [address] [place] [address] Pain Management 06/06/23 [place] [address] [address] [address] Pain Management 06/06/23 Umbrella Mender Relationship Specialty Start Date End Date Jabari Murillo MD [address] [place] [address] PCP - General Internal Medicine 12/02/11 Yrn Soni MD [address] [place] [address] Pain Management 06/06/23 [place] [address] [address] [address] Pain Management 06/06/23 Umbrella Mender Relationship Specialty Start Date End Date Jabari Murillo MD [address] [place] [address] PCP - General Internal Medicine 12/02/11 Yrn Soni MD [address] [place] [address] Pain Management 06/06/23 [place] [address] [address] [address] Pain Management 06/06/23 Umbrella Mender Relationship Specialty Start Date End Date Jabari Murillo MD [address] [place] [address] PCP - General Internal Medicine 12/02/11 Yrn Soni MD [address] [place] [address] Pain Management 06/06/23 [place] [address] [address] [address] Pain Management 06/06/23 Umbrella Mender Relationship Specialty Start Date End Date Jabari Murillo MD [address] [place] [address] PCP - General Internal Medicine 12/02/11 Yrn Soni MD [address] [place] [address] Pain Management 06/06/23 [place] [address] [address] [address] Pain Management 06/06/23 Umbrella Mender Relationship Specialty Start Date End Date Jabari Murillo MD [address] [place] [address] PCP - General Internal Medicine 12/02/11 Yrn Soni MD [address] [place] [address] Pain Management 06/06/23 [place] [address] [address] [address] Pain Management 06/06/23 Umbrella Mender Relationship Specialty Start Date End Date Jabari Murillo MD [address] [place] [address] PCP - General Internal Medicine 12/02/11 Yrn Soni MD [address] [place] [address] Pain Management 06/06/23 [place] [address] [address] [address] Pain Management 06/06/23 Umbrella Mender Relationship Specialty Start Date End Date Jabari Murillo MD [address] [place] [address] PCP - General Internal Medicine 12/02/11 Yrn Soni MD [address] [place] [address] Pain Management 06/06/23 [place] [address] [address] [address] Pain Management 06/06/23 Umbrella Mender Relationship Specialty Start Date End Date Jabari Murillo MD [address] [place] [address] PCP - General Internal Medicine 12/02/11 Umbrella Mender Relationship Specialty Start Date End Date Jabari Murillo MD [address] [place] [address] PCP - General Internal Medicine 12/02/11 Yrn Soni MD [address] [place] [address] Pain Management 06/06/23 [place] [address] [address] [address] Pain Management 06/06/23 Umbrella Mender Relationship Specialty Start Date End Date Jabari Murillo MD [address] [place] [address] PCP - General Internal Medicine 12/02/11 Umbrella Mender Relationship Specialty Start Date End Date Jabari Murillo MD [address] [place] [address] PCP - General Internal Medicine 12/02/11 Umbrella Mender Relationship Specialty Start Date End Date Jabari Murillo MD [address] [place] [address] PCP - General Internal Medicine 12/02/11 Umbrella Mender Relationship Specialty Start Date End Date Jabari Murillo MD [address] [place] [address] PCP - General Internal Medicine 12/02/11 Yrn Soni MD [address] [place] [address] Pain Management 06/06/23 [place] [address] [address] [address] Pain Management 06/06/23 Umbrella Mender Relationship Specialty Start Date End Date Jabari Murillo MD [address] [place], [place] [address] PCP - General Internal Medicine 12/02/11 Yrn Soni MD [address] [place] [address] Pain Management 06/06/23 [place] [address] [address] [facility] [address] [place] [address] Pain Management 06/06/23 Cecilia Whitlock, MRI MANAGER.BOBTAIL DRIVER [address] [place] [address] Ear Machine Operator Internal Medicine 07/29/24 Umbrella Mender Relationship Specialty Start Date End Date Jabari Murillo MD [address] [place] [address] PCP - General Internal Medicine 12/02/11 Yrn Soni MD [address] [place] [address] Pain Management 06/06/23 [place] [address] [address] [facility] [address] [place] [address] Pain Management 06/06/23 Cecilia Whitlock, MRI MANAGER.BOBTAIL DRIVER [address] [place] [address] Ear Machine Operator Internal Medicine 07/29/24 Umbrella Mender Relationship Specialty Start Date End Date Jabari Murillo MD [address] [place] [address] PCP - General Internal Medicine 12/02/11 Yrn Soni MD [address] [place] [address] Pain Management 06/06/23 [place] [address] [address] [address] Pain Management 06/06/23 Cecilia Whitlock, MRI MANAGER.BOBTAIL DRIVER [address] [place] [address] Ear Machine Operator Internal Medicine 07/29/24 Umbrella Mender Relationship Specialty Start Date End Date Jabari Murillo MD [address] [place] [address] PCP - General Internal Medicine 12/02/11 Yrn Soni MD [address] [place] [address] Pain Management 06/06/23 [place] [address] [address] [address] Pain Management 06/06/23 Cecilia Whitlock, MRI MANAGER.BOBTAIL DRIVER [address] [place] [address] Ear Machine Operator Internal Medicine 07/29/24 Umbrella Mender Relationship Specialty Start Date End Date Jabari Murillo MD [address] [place] [address] PCP - General Internal Medicine 12/02/11 Yrn Soni MD [address] [place] [address] Pain Management 06/06/23 [place] [address] [address] [address] Pain Management 06/06/23 Cecilia Whitlock, MRI MANAGER.BOBTAIL DRIVER [address] [place] [address] [facility] Internal [facility] 07/29/24 Umbrella Mender Relationship Specialty Start Date End Date Jabari Murillo MD [address] [place] [address] PCP - General Internal Medicine 12/02/11 Yrn Soni MD [address] [place] [address] Pain Management 06/06/23 [place] [address] [facility] [address] [place] [address] Pain Management 06/06/23 Cecilia Whitlock, MRI MANAGER.BOBTAIL DRIVER [address] [place] [address] [facility] Internal Medicine 07/29/24 Umbrella Mender Relationship Specialty Start Date End Date Jabari Murillo MD [address] [place] [address] PCP - General Internal Medicine 12/02/11 Yrn Soni MD [address] [place] [address] Pain Management 06/06/23 [place] [address] [address] [facility] [address] [place] [address] Pain Management 06/06/23 Cecilia Whitlock, MRI MANAGER.BOBTAIL DRIVER [address] [place] [address] Ear Machine Operator Internal Medicine 07/29/24 Umbrella Mender Relationship Specialty Start Date End Date Jabari Murillo MD [address] [place] [address] PCP - General Internal Medicine 12/02/11 Yrn Soni MD [address] [place] [address] Pain Management 06/06/23 [place] [address] [address] [address] Pain Management 06/06/23 Cecilia Whitlock, MRI MANAGER.BOBTAIL DRIVER [address] [place] [address] Ear Machine Operator Internal [facility] 07/29/24 Umbrella Mender Relationship Specialty Start Date End Date Jabari Murillo MD [address] [place] [address] PCP - General Internal Medicine 12/02/11 Yrn Soni MD [address] [place] [address] Pain Management 06/06/23 [place] [address] [address] [address] Pain Management 06/06/23 Cecilia Whitlock, MRI MANAGER.BOBTAIL DRIVER [address] [place] [address] Ear Machine Operator Internal Medicine 07/29/24 Umbrella Mender Relationship Specialty Start Date End Date Jabari Murillo MD [address] [place] [address] PCP - General Internal Medicine 12/02/11 Yrn Soni MD [address] [place] [address] Pain Management 06/06/23 [place] [address] [address] [address] Pain Management 06/06/23 Cecilia Whitlock, MRI MANAGER.BOBTAIL DRIVER [address] [place] [address] [facility] Internal Medicine 07/29/24 Umbrella Mender Relationship Specialty Start Date End Date Jabari Murillo MD [address] [place] [address] PCP - General Internal Medicine 12/02/11 Yrn Soni MD [address] [place] [address] Pain Management 06/06/23 [place] [address] [address] [address] Pain Management 06/06/23 Cecilia Whitlock, MRI MANAGER.BOBTAIL DRIVER [address] [place] [address] Ear Machine Operator Internal Medicine 07/29/24 Umbrella Mender Relationship Specialty Start Date End Date Jabari Murillo MD [address] [place], [place] [address] PCP - General Internal Medicine 12/02/11 Yrn Soni MD [address] [place] [address] Pain Management 06/06/23 [place] [address] [address] [facility] [address] [place] [address] Pain Management 06/06/23 Cecilia Whitlock, MRI MANAGER.BOBTAIL DRIVER [address] [place] [address] Ear Machine Operator Internal Medicine 07/29/24 Team Status: Active Member Role/Relationship Status Dates Dr. Jabari Murillo MD Primary Care Provider Active Team Status: Inactive Member Role/Relationship Status Dates Dr. Jabari Murillo MD Primary Care Provider Active Start: March 20, 2025 End: March 20, 2025 Dr. Hemalatha Negro MD Attending Provider Active Start: March 20, 2025 End: March 20, 2025 Dr. Hemalatha Negro MD Referring Provider Active Start: March 20, 2025 End: March 20, 2025 Umbrella Mender Relationship Specialty Start Date End Date Jabari Murillo MD [address] [place] [address] PCP - General Internal Medicine 12/02/11 Yrn Soni MD [address] [place] [address] Pain Management 06/06/23 [place] [address] [address] [facility] [address] [place] [address] Pain Management 06/06/23 Cecilia Whitlock, MG.BOBTAIL DRIVER [address] [place], [place] [address] Ear Machine Operator Internal Medicine 07/29/24 Reason for Visit (unrecogniz ed section and content) Reason Comments F/U 3 Month Specialty Diagnoses / Procedures Referred By Daveac t Referred To Contact Internal Medicine / INTERNAL MEDICINE Diagnoses Tachycardia 3 month F/U Procedures 4C EST Self Jabari Murillo MD [address] [place] [address] Referral ID Status Reason Start Date Expiration Date Visits Requested Visits Authorized [id number] Outside PCP Financial Clearance Required - OON Payor 11/03/2023 02/01/2024 1 0 Reason Comments Procedure Excision of subcutan eous mass of upper back Specialty Diagnoses / Procedures Referred By Melsisa rizo Referred To Contact General Surgery / GENERAL SURGERY Diagnoses lipoma excision Procedures SURGERY 40 Kera Richmond MD [address] [place] [address] Kera Richmond MD [address] [facility] [address] Referral ID Status Reason Start Date Expiration Date Visits Re quested Visits Authorized [id number] Closed 12/03/2021 02/01/2022 1 1 Specialty Diagnoses / Procedures Referred By Melissa rizo Referred To Contact General Surgery / GENERAL SURGERY Diagnoses lipoma excision Procedures SURGERY 40 Kera Richmond MD [address] [place] [address] Kera Richmond MD [address] [place] [address] Referral ID Status Reason Start Date Expiration Date Visits Re quested Visits Authorized [id number] Closed 12/08/2021 03/08/2022 1 1 Reason Onset Date Comments Refill Request 12/08/2021 Reason Onset Date Comments Covid19 Concern 01/26/2021 Reason Comments Results Reason Comments right finger and hand pain fell 2 days a go Reason Comments Procedure Excision of Subcutan eous Mass, Mid Back Specialty Diagnoses / Procedures Referred By Melissa t Referred To Contact GENERAL SURGERY Diagnoses Lipoma surgery Procedures EXCISION TUMOR SOFT TISSUE BACK/FLANK SUBQ <3CM surgery Kera Richmond MD [address] [place] [address] [facility] [address] [place] [address] Referral ID Status Reason Start Date Expiration Date Visits Re quested Visits Authorized [id number] Closed 12/16/2021 08/20/2022 1 1 Reason Comments Appointment Reason Comments Procedure Excision of Subcutan eous Mass of Mid Back Specialty Diagnoses / Procedures Referred By Melissa t Referred To Contact General Surgery / GENERAL SURGERY Diagnoses Skin Excision Right Upper Back Procedures REM LESION TRUNK,ARM, LEG <0.5 CM SURGERY 40 [place] [address] [place] [address] Kera Richmond MD [address] [place] [address] Referral ID Status Reason Start Date Expiration Date Visits Re quested Visits Authorized [id number] Closed 02/25/2022 08/20/2022 1 1 Specialty Diagnoses / Procedures Referred By Melissa t Referred To Contact General Surgery / GENERAL SURGERY Diagnoses Excision Subcutaneous Mass,Mid Back Procedures REM LESION TRUNK,ARM, LEG <0.5 CM SURGERY 40 Ty, Kera Carey MD [address] [place] [address] Referral ID Status Reason Start Date Expiration Date Visits Re quested Visits Authorized [id number] Closed 03/28/2022 08/20/2022 1 1 Reason Comments Procedure Excision Subcutaneou s Mass, Mid Back Specialty Diagnoses / Procedures Referred By Contac t Referred To Contact General Surgery / GENERAL SURGERY Diagnoses Excision Subcutaneous Mass,Mid Back Procedures INITIAL TX, FIRST DEGREE BURN, LOCAL TREATMENT SURGERY 40 Kera Richmond MD [address] [facility] [place] [address] Kera Richmond MD [address] [facility] [place] [address] Referral ID Status Reason Start Date Expiration Date Visits Re quested Visits Authorized [id number] Closed 04/26/2022 08/20/2022 1 1 Reason Comments F/U 6 months Reason Comments Refill Request Reason Onset Date Comments Refill Request 09/01/2022 Reason Comments Insurance Authorization Reason Comments patient update with happenings Patient Question Reason Onset Date Comments Refill Request 02/15/2023 Reason Comments neck and back pain Also c/o right flank pain Reason Comments Patient Question Reason Comments 2 month follow-up Reason Comments Covid19 Concern Reason Comments Sinus Problem Reason Comments Covid Positive Reason Comments Back Pain Neck, and bilateral shoulders. Specialty Diagnoses / Procedures Referred By Contac t Referred To Contact Pain Management Diagnoses Cervicalgia Chronic low back pain, unspecified back pain laterality, unspecified whether sciatica present Procedures CONSULT TO PAIN MGT OFFICE/OUTPATIENT [facility] 60-74 MINUTES Jabari Murillo MD [address] [place] [address] Referral ID Status Reason Start Date Expiration Date V isits Requested Visits Authorized [id number] Closed PCP Requested Referral 04/27/2023 04/26/2024 1 1 Reason Comments Rash Back and neck Reason Comments Radiology US Specialty Diagnoses / Procedures Referred By Contac t Referred To Contact US IMAGING Diagnoses Fatty liver Procedures US ABD RIGHT UPPER QUADRANT US ABDOMINAL REAL TIME W/IMAGE LIMITED Cecilia Barry APRN.BOBTAIL DRIVER [address] [place] [address] [place] [address] Referral ID Status Reason Start Date Expiration Date V isits Requested Visits Authorized [id number] Closed Auto-Generate d Referral 06/21/2023 07/20/2024 1 1 Reason Comments Medication Request Reason Onset Date Comments Refill Request 10/04/2023 Reason Comments Medication Problem Reason Comments Follow Up Blood pressure ; c/o left arm numbness and tingling couple weeks Reason Comments Medication Problem Trulicity 1.5 mg Reason Onset Date Comments Rx Refills 12/13/2023 Reason Comments Follow Up L are pain worse. Pr ickly feelingPassing out spells worseblood pressure Reason Comments Follow Up Reason Onset Date Comments Refill Request 02/12/2024 Reason Comments New Patient Neck pain radiates t o L arm Specialty Diagnoses / Procedures Referred By Contac t Referred To Contact [facility] [place] Diagnoses Cervicalgia EMG (electromyogram) abnormalities Procedures CONSULT TO [facility] OFFICE/OUTPATIENT NEW HIGH MDM 60 MINUTES Marimar Villar, MRI MANAGER.ELECTROLYSIS INVESTIGATOR [address] [place] [address] Referral ID Status Reason Start Date Expiration Date V isits Requested Visits Authorized [id number] Closed PCP Requested Referral 02/25/2024 02/24/2025 1 1 Reason Onset Date Comments Refill Request 04/02/2024 Reason Comments Outpatient Testing Denial Letter <9> Reason Comments 2 month follow up Specialty Diagnoses / Procedures Referred By Contac t Referred To Contact Internal Medicine / INTERNAL MEDICINE Diagnoses Thoracic aortic ectasia 2 month follow up Procedures OFFICE/OUTPATIENT ESTABLISHED MOD MDM 30 MIN 4C EST Self Self Referral ID Status Reason Start Date Expiration Date Visits Requested Visits Authorized [id number] Denied OON Notification Letter Clearance Not Met - Admin/Grinder Machine Knife Setter/D irector Advise to Postpone/Resched ule or Not Proceed 04/15/2024 07/14/2024 1 0 Reason Onset Date Comments Refill Request 04/29/2024 Reason Comments Trulicity 4.5 Prior Auth Reason Comments Blood Pressure Specialty Diagnoses / Procedures Referred By Contac t Referred To Contact INTERNAL MEDICINE Diagnoses bp check Procedures bp check Cecilia Whitlock, MRI MANAGER.BOBTAIL DRIVER [address] [place] [address] [facility] [address] [place] [address] Referral ID Status Reason Start Date Expiration Date Visits Requested Visits Authorized [id number] Pending Review OON/Self Pay Override 04/23/2024 08/01/2025 1 1 Reason Onset Date Comments Refill Request 07/02/2024 Reason Onset Date Comments Refill Request 08/30/2024 Reason Onset Date Comments Refill Request 10/29/2024 Reason Comments URI X 1 month Specialty Diagnoses / Procedures Referred By Contac t Referred To Contact INTERNAL MEDICINE Diagnoses PCP Follow up Procedures PCP Follow up Jabari Murillo MD [address] [place] [address] Phone: tel: fax: Internal Medicine [place] [address] [place] [address] Phone: tel: fax: Referral ID Status Reason Start Date Expiration Date Visits Requested Visits Authorized [id number] New Request OON/Self Pay Override 05/21/2024 02/17/2025 3 3 Reason Comments Med Change Request Reason Comments F/U 6 months Specialty Diagnoses / Procedures Referred By Contac t Referred To Contact INTERNAL MEDICINE Diagnoses PCP Follow up Procedures PCP Follow up Jabari Murillo MD [address] [place] [address] Phone: tel: fax: Internal Medicine [place] [address] [place] [address] Phone: tel: fax: Referral ID Status Reason Start Date Expiration Date Visits Requested Visits Authorized [id number] New Request OON/Self Pay Override 05/21/2024 05/23/2025 3 3 Reason Onset Date Comments Refill Request 12/23/2024 Reason Comments US of heart approved Reason Onset Date Comments Refill Request 01/22/2025 Reason Onset Date Comments Refill Request 02/13/2025 Reason Onset Date Comments Refill Request 02/25/2025 Care Team (unrecognized sect ion and content) Care Team Personnel Name: JABARI MURILLO MD Member Role: Primary Care Physician Address: Address: [address] [place] [address]- Care Team Related Persons Name: XAVI SHAH Address: Home [address] [place] [address] Name: MERI SHAH Care Team Personnel Name: JABARI MURILLO MD Member Role: Primary Care Physician Address: Address: [address] [place] [address] Care Team Related Persons Name: SHAHXAVI GOMEZ Address: Home [address] [place] [address] Name: MERI SHAH Goals (unrecognized section and content) Goals may be documented in a n alternate section FOR RECORDS PERTAINING TO PATIENTS WHO ARE OR HAVE BEEN ENROLLED IN A CHEMICAL DEPENDENCY/SUBSTANCEABUSE PROGRAM, SOME INFORMATION MAY BE OMITTED. This clinical summary was aggregated from multiple sources. Caution should be exercised in using it in the provision of clinical care. This summary normalizes information from multiple sources, and as a consequence, information in this document may materially change the coding, format and clinical context of patient data. In addition, data may be omitted in some cases. CLINICAL DECISIONS SHOULD BE BASED ON THE PRIMARY CLINICAL RECORDS. [facility] [employer] provides no warranty or guarantee of the accuracy or completeness of information in this document.
--- NOTE | 2025-07-30 06:34 | PCM.PRE.AN2 ---
ASA Classification* ASA Classification ASA Classification: 3 Assessment & Plan Anesthesia* Anesthesia Assessment Anesthesia Assessment: Discussed sedation and/or anesthesia options, risks, benefits, and alternatives with patient/parents/legal guardian/POA. Questions invited. The patient/parents/legal guardian/POA seems to understand and agrees to proceed with anesthesia plan. Reviewed the physical assessment, medical history, allergy history and patient home medications list prior to surgery/procedure/anesthetic and documented any changes. Performed airway and anesthesia risk assessments. Anesthesia Type Anesthesia Type: General History Source History Obtained from:: Patient and Chart Anesthesia Focused Assessment* Temperature: 96.8 F Pulse Rate: 82 Blood Pressure: 124/84 Respiratory Rate: 16 Pulse Ox: 98 Oxygen Delivery Method: Room Air Airway Assessment Mouth opens: >3 cm Mallampati Score: II Teeth Condition: Missing Labs Anesthesia Preop lab: CBC WBC, (4.4-11.0) 8.0 K/mm3 07/29/25, 13:13 RBC, (4.2-5.4) 4.30 M/mm3 07/29/25, 13:13 Hgb, (12.0-15.0) 11.9 g/dL L 07/29/25, 13:13 Hct, (37-47) 36.7 % L 07/29/25, 13:13 Plt Count, (150-450) 266 K/mm3 07/29/25, 13:13 CHEMISTRY Potassium, (3.3-5.1) 4.2 mmol/L 07/29/25, 13:13 Sodium, (133-145) 143 mmol/L 07/29/25, 13:13 Magnesium, (1.5-2.2) 2.1 mg/dL 07/29/25, 13:13 BUN, (4-19) 9 mg/dL 07/29/25, 13:13 Creatinine, (0.70-1.20) 0.72 mg/dL 07/29/25, 13:13 Glucose, (70-99) 112 mg/dL H 07/29/25, 13:13 TSH, (0.300-4.200) 0.167 uIU/mL L 07/29/25, 13:13 COAG Pre-Assessment Diagnosis/Proposed Procedure Planned Operative Procedure(s): ANTERIOR CERVICAL DISC FUSION AND POSTERIOR INSTRUMENTATION OF C3-C4, C4-5, C5-6, C6-7 Anesthesia History 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 When Was Last Pacemaker Check QUESTION #4 FULL TEXT: You/Your Family Experience fever (hyperthermia) with Anesthesia Last Oral Intake Last Oral intake: Last Oral Intake NPO since Meds taken in AM with sips of water? Meds patient instructed to take am of surgery PONV PONV - coal or ore controller: PONV - coal or ore controller Female Yes 07/29/25 10:51 HX of Motion Sickness No 07/29/25 10:51 HX of N/V After Surgery No 07/29/25 10:51 Non-Smoker Yes 07/29/25 10:51 Duration of Surgery greater Yes 07/29/25 10:51 than 60 minutes Number of Risk Factors 3 07/29/25 10:51 PONV Score Moderate Risk 07/29/25 10:51 Height & Weight Height & Weight: Anesthesia: Height & Weight Height 5 ft 2 in 07/04/25 07:59 Respiratory Assessment Respiratory Assessment - coal or ore controller: Respiratory Tract Infection Hx - coal or ore controller Hx Respiratory Tract Infection No 07/29/25 10:51 STOP Sleep Apnea STOP Sleep Apnea - coal or ore controller: STOP Sleep Apnea - coal or ore controller Hx Hypertension Yes 07/29/25 10:51 Hx Sleep Apnea No 07/29/25 10:51 CPAP No 09/09/14 09:01 BIPAP No 09/05/14 15:01 Do you snore loudly (louder No 07/29/25 10:51 than talking or can be heard Do you often feel tired/ No 07/29/25 10:51 fatigued/ sleepy during daytime? Has anyone observed you stop No 07/29/25 10:51 breathing during sleep? STOP Results Negative 07/29/25 10:51 QUESTION #5 FULL TEXT : Do you snore loudly (louder than talking or can be heard through closed doors)? 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 Specify any problems Hx of Preganancy in last 3 No 07/29/25 10:51 Months [facility] 07/29/25 10:51 & Questions: Date: 07/29/25 07/29/25 10:51 Time: 10:59 07/29/25 10:51 Patient unable to answer at this time (ie. confused, unrespo /Reproduction History /Reproductive History - coal or ore controller: /Reproductive Hx- coal or ore controller Hx Now Gestational Age (in weeks): EDC: Hx Hx Para Hx Section SAB Does the father of the baby or his family experience fever w Father of the baby Malignant Hypertension history comment Active Medications Active Medications: Current Medications Generic Name Dose Route Start Last Admin Trade Name Freq PRN Reason Stop Dose Admin Lactated Ringer's 1,000 mls @ 15 mls/hr 07/30/25 06:15 IV .Q48H CALISTA Cefazolin Sodium 2 gm/ Sodium 110 mls @ 200 mls/hr 07/30/25 07:00 Chloride IV 07/30/25 07:32 INTRAOP ONE PFSH Medical History Wears glasses Post-menopausal Bruising Arthritis Gastric reflux Non-smoker History of edema Diabetes High blood pressure Home Medications ?Medication ?Instructions ?Recorded ?Last Taken ?Type levothyroxine 88 mcg tablet 88 mcg PO DAILY 05/28/14 07/30/25 History amlodipine 5 mg tablet 5 mg PO QDAY 07/04/25 07/30/25 History dupilumab 300 mg/2 mL subcutaneous 300 mg subcut Q15D 07/04/25 07/25/25 History pen injector (Dupixent) gabapentin 300 mg capsule 900 mg PO BID 07/04/25 07/30/25 History losartan 25 mg tablet 25 mg PO QDAY 07/04/25 07/30/25 History omeprazole 40 mg capsule,delayed 40 mg PO QDAY 07/04/25 07/29/25 History release dulaglutide 4.5 mg/0.5 mL 4.5 mg subcut QWEEK 07/29/25 07/24/25 History subcutaneous pen injector (Trulicity) ergocalciferol (vitamin D2) 1,250 1,250 mcg PO QWEEK 07/29/25 07/29/25 History mcg (50,000 unit) capsule tizanidine 4 mg tablet 8 mg PO Q8H 07/29/25 07/29/25 History Allergy/AdvReac Type Severity Reaction Status Date / Time meloxicam Allergy Severe break out Verified 07/30/25 06:28 Surgical History History of gastric bypass H/O: hysterectomy H/O shoulder surgery Social History Smoking Status: Never smoker alcohol intake: current alcohol intake frequency: holidays/special occasions only Addt'l Information Additional Findings: EKG reviewed on chart Review of Systems (Anesthesia) ROS Narrative System reviewed and no additional complaints, except as documented. Physical Exam Const alert, oriented x3 and average body habitus Orientation / Consciousness: awake Neck General: normal visual inspection and trachea midline Resp normal respiratory effort and normal air movement Cardio regular rate and regular rhythm Neuro moves all extremities
[2025-07-30] MEDS: Lactated Ringers 1,000 ML 15 ML IV ×2 (07:01→16:13)
[2025-07-30] MEDS: Magnesium 1 GM over 15 mins IV (07:01)
--- NOTE | 2025-07-30 07:48 | HP.PCM_ITS ---
History and Physical Date of Admission: 07/30/25 MR#: [id number] Acct: [id number] Name: CHICA SHAH Rep #: [id number] : 1965 Provider: Dr. Frank Hong MD Age/Sex: 60/F [place] [facility] [place] Status: Signed Intake Vital Signs 07/04/2507:59 Height 5 ft 2 in Weight: 140 lb BMI 25.6 Intake Visit Reasons: cervical spine Chief Complaint: Cervical spine pre op Accompanied by: Self Allergies meloxicam Allergy (Severe, Verified 07/25/25 08:19) break out Medications ?Medication ?Instructions ?Recorded ?Confirmed ?Type cholecalciferol (vitamin D3) 50 5,000 unit PO DAILY 05/28/14 07/25/25 Hi story mcg (2,000 unit) tablet (Vitamin D3) levothyroxine 88 mcg tablet 88 mcg PO DAILY 05/28/14 07/25/25 Histor y amlodipine 5 mg tablet 5 mg PO QDAY 07/04/25 07/25/25 History dupilumab 300 mg/2 mL subcutaneous mg subcut 07/04/25 07/25/25 History pen injector (Dupixent) gabapentin 300 mg capsule 900 mg PO BID 07/04/25 07/25/25 History losartan 25 mg tablet 25 mg PO QDAY 07/04/25 07/25/25 History omeprazole 40 mg capsule,delayed 40 mg PO QDAY 07/04/25 07/25/25 History release tizanidine 4 mg tablet 4 mg PO QPM #30 tabs 07/04/25 07/25/25 R x PFSH Medical History Diabetes High blood pressure Surgical History H/O: hysterectomy H/O shoulder surgery Social History Smoking Status: Never smoker alcohol intake: current alcohol intake frequency: holidays/special occasions only HPI cervical spine Details: This documentation accurately reflects the service provided and the decisions made by me, Dr. Frank Hong MD 07/25/25 0811. Part of today?s visit was documented by [ ], acting as scribe. CHICA SHAH is a 60 year old F here today for pre operative visit for C3-7 ACDF and posterior instrumentation scheduled on 07-30-25. The patient is a 60-year-old female presenting for a preoperative consultation for cervical spine surgery scheduled for next Monday. She reports significant neck pain, headaches, and pain between the shoulder blades. She experiences numbness in both hands, which is more pronounced on the left side, and has been dropping items such as mugs, glasses, pills, keys, and utensils. She denies significant trouble with fine motor skills like tying shoelaces. The patient describes herself as clumsy and reports falling, noting that she can get back up afterward. She also reports passing out at night after taking her evening medications, which include gabapentin. Her past medical history is significant for a gastric bypass surgery in 2010, for which she was advised against taking Advil, although she has been taking it for her pain. She has a history of very high blood pressure, with a recent reading of 178/118 mmHg, and is on losartan and amlodipine but does not monitor her blood pressure at home. She denies any cardiac problems, does not smoke, and does not have diabetes, with a recent A1C of 4. The patient is on a high-dose prescription vitamin D gel cap. 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 She lives with her in a single-floor ranch house with stairs to the basement. - Constitutional: Reports syncope at night after taking medication. - Eyes: Reports a sensation of having a hair or eyelash in her left eye. - Cardiovascular: Denies cardiac problems. - Musculoskeletal: Reports neck pain and pain between the shoulder blades. - Neurological: Reports headaches, bilateral hand numbness greater on the left, dropping objects, and balance problems with falls. - Endocrine: Denies diabetes. - Gastrointestinal: Reports a history of gastric bypass surgery. Attestation: Documentation on this patient encounter was supported using ambient scribe technology/ voice AI technology. The patient consented to recording for the purpose of documenting the encounter. Provider reviewed content of the generated note prior to signature. 07/04/25: CHICA SHAH is a 60 year old F here today for cervical spine. Patient states that her pain is a 9 today. She is having pain in the back of the neck. The pain starts in the back of the neck, and then goes down in between the shoulder blades. She says that her pain makes it difficult for her to sleep at night. She also notices headaches at the base of her skull which has been worsening since the first of the year. Sometimes she will get numbness in both arms. The numbness is usually in the right arm. Primarily the numbness is in the hands. The right side is worse than the left. She gets a lot of shoulder blade/scapula pain and trapezius pain. This is bilateral. She feels a dull constant ache that makes her feel nauseous in the back of the neck. Patient states that this has been going on for a while. She states that the pain just came on one day, and has been gradually getting worse. Patient saw Dr. Sruthi sotelo in August 2024. The pain has been progressively getting worse and worse. Patient hasn't had any surgeries on her cervical spine. Patient states that when she goes about her normal day, the pain gets worse. Everything makes the pain worse, sitting, walking, movement. Patient hasn't had any injections. She states that her doesn't want her to get any injections in her neck. She did try physical therapy for her neck. The physical therapy made her pain worse. Patient does have diabetes last A1c was 6.3 in April, but doesn't have take blood thinners. No heart or lung issues. Patient doesn't smoke. Patient states that her balance is okay, it's not the best. She doesn't use a walker or a cane. Sometimes she will drop items out of her hands. She has dropped things out of her hands such as pens, cups. She believes that this has been a progressively worsening issue since the beginning of the year. The patient is right-hand dominant. Patient has taken gabapentin, tizanidine, Tylenol PM, Benadryl to help her sleep and the tizanidine seems to help her the best at sleeping. Ortho Exam General General: Yes no acute distress Neurologic: Yes alert and Yes oriented x3 Psychologic: Yes reasonable and appropriate Spine SPINE TESTING CERVICAL THORACIC LUMBAR Musculoskeletal Strength 0=absent - 5=normal Details: Neurological exam of the upper extremities shows grade 4 right burn center nurse strength, bilateral finger abduction, bilateral triceps, grade 4+ bilateral biceps. All other muscle groups show 5 power. Normal sensation across all dermatomes. No hyperreflexia. Pawel's negative. There is midline and paraspinal tenderness. Romberg's positive. Tandem gait shows no severe ataxia. Coding Level of Care Code Off vis,est,level 5 Diagnoses Cervical stenosis of spinal canal M48.02 Cervical myelopathy G95.9 Time Spent (min) 45 Assessment and Plan Assessment and Plan (1) Cervical stenosis of spinal canal: Status: Acute (2) Cervical myelopathy: Status: Acute Plan Cervical x-rays show multilevel disc height loss, straightening of the normal cervical lordosis. Degenerative changes are most noticeable at C3-4, C5-7. Reviewed cervical MRI from 05/15/2025. Cervical MRI showed C3-4 bilateral facet arthrosis and ligamentum flavum hypertrophy resulting in moderate to severe stenosis with indentation of the spinal cord. There is brightness of the spinal cord seen at C 3-5. There is moderate bilateral foraminal narrowing at this level. C4-5 moderate central canal stenosis with indentation of the cord. Moderate right and severe left foraminal narrowing. C5-6 disc height loss and central disc protrusion with facet arthropathy resulting in moderate central stenosis. And moderate bilateral foraminal stenosis. C6-7 central disc protrusion and facet arthropathy resulting in moderate central stenosis with moderate bilateral foraminal stenosis. 1. Cervical Stenosis with Myelopathy - The patient presents with significant myelopathic symptoms, including hand numbness, dropping objects, and balance issues, secondary to multilevel cervical spinal cord compression. - Imaging confirms severe pressure at C3-C5, moderate pressure at C5-C7, and mild changes at C7-T1. - The primary goal of surgery is to decompress the spinal cord to prevent progression of neurological deficits, with the understanding that some residual symptoms may remain. - Proceed with a four-level (C3-C7) anterior cervical discectomy and fusion with posterior fixation. - The procedure will involve an anterior approach to remove the discs and place grafts with a plate, and a posterior approach with small incisions for cages to enhance stability. - Intraoperative spinal cord monitoring will be utilized for safety. - Post-operatively, the patient will be hospitalized for one night, will have a drain in place, and must wear a cervical collar full-time for at least two weeks. - Activity will be restricted, with no heavy lifting for three months, and outpatient physical therapy will begin after weaning from the collar. - Risks of infection, bleeding, hematoma, nerve/spinal cord injury, hardware failure, nonunion, adjacent segment disease, and DVT/PE were discussed in detail. - A bone stimulator may be used post-operatively if approved by insurance. 2. Uncontrolled Hypertension - The patient has a history of severely elevated blood pressure, with a recent reading of 178/118 mmHg, despite being on losartan and amlodipine. - This poses a significant perioperative risk for stroke, intracerebral hemorrhage, and excessive surgical bleeding. - The patient must obtain medical clearance from her PCP, Dr. Edmond, the day before surgery. - The surgery will be postponed if her blood pressure is not adequately controlled. - Advised the patient to consider obtaining a home blood pressure monitor for better management. - The pre-admission testing team will provide specific instructions regarding her [id number] medications. 3. Health Maintenance and Surgical Optimization - The patient is a non-smoker and non-diabetic, which reduces surgical risk. - She takes prescription vitamin D, which is beneficial for bone healing. - She inappropriately uses Advil for pain, given her history of gastric bypass. - Discussed the importance of postoperative mobility to promote healing and prevent complications like DVT. - She should continue her prescription vitamin D. The patient was counseled on postoperative dysphagia and the need for a soft diet. - You must see your primary care doctor on Monday, the day before your surgery, to get your blood pressure checked and to get cleared for the procedure. - If your blood pressure is too high, your surgery may need to be postponed for your safety. - The pre-admission testing team will call you to tell you exactly which of your medications to take on the morning of surgery. - After surgery, you will stay in the hospital for one night. - You must wear your neck collar at all times, including while sleeping, for at least two weeks. - For the first week after surgery, it is best to sleep in a recliner or propped up on several pillows in bed to help reduce swelling. - Expect to have a sore throat and difficulty swallowing big pills for a while; stock up on soft foods. - It is very important to get up and walk around after surgery to speed up healing and prevent blood clots. - Avoid cracking your neck for the first three months. - Do not lift anything heavy for three months. - You can start driving short distances once you are no longer wearing the collar and are not taking strong pain medications that could make you drowsy. - A quality audit representative may visit you at home to fit you with a bone stimulator device to wear for a few hours each day to help your bones heal. Explained imaging findings in detail. Discussed that surgical options include a C3-7 ACDF and posterior instrumented fusion. Explained the surgery in detail. Explained risks and benefits of the surgery. Explained the progressive nature of cervical myelopathy. Discussed this procedure in detail and explained the risks, benefits and alternatives. The risks of surgery include but are not limited to infection, bleeding, injury to nerves and vessels, hematoma formation, dysphagia, dysphonia, recurrent laryngeal nerve injury, Flores syndrome, DVT, pulmonary embolism, pneumonia, atelectasis, cardiopulmonary event, pseudoarthrosis, hardware failure, adjacent segment degeneration, need for further surgery, nerve root injury, spinal cord injury. Answered all questions to the patient?s satisfaction. Patient understands and agrees to proceed with surgery. Consent was signed.Follow up two weeks post operatively or sooner if pain, swelling, numbness or associated symptoms, or concerns develop.All questions answered. Patient in agreement of plan.
[2025-07-30] MEDS: Lidocaine 1% (5 ml sdv) 5 ML Vial 8 ML IV (08:28)
[2025-07-30] MEDS: fentaNYL 100 MCG/2 ML Ampul IV (08:37)
--- NOTE | 2025-07-30 08:40 | RAD_ITS ---
PROCEDURE: CERV SPINE 4 OR 5 VIEWS 07/30/2025 REASON FOR EXAM: ANTERIOR FUSION, C3-4, C4-5, C5-6, C6-7 TECHNIQUE: Procedure Code: RADSPC Modality: DX Procedure: CERV SPINE 4 OR 5 VIEWS Intraoperative fluoroscopic images. Fluoroscopy time 260.5 seconds. Radiation dose 25.2 mGy. COMPARISON: Radiographs on 07/30/2025. FINDINGS: Anterior cervical fusion at C3, C4, C5, C6 and C7. Unremarkable disc spacer at C2-C3, C3-C4, C4-C5 and C5-C6 levels. RAD/Cerv Spine 4 or 5 Views IMPRESSION: Intraoperative images for anterior cervical fusion. Reading Location: [facility]
[2025-07-30] MEDS: Cefazolin 1 GM/5 ML Vial 4 GM IV (12:30)
[2025-07-30] MEDS: REMIFENTANIL HCL 1 MG VIAL 2.75 MG IV (12:43)
[2025-07-30] MEDS: Bupiv/Epi 0.25% 30 ML Vial (12:45)
[2025-07-30] MEDS: TRANEXAMIC ACID 1,000 MG/10 ML ML 2000 MG IV (14:16)
--- NOTE | 2025-07-30 14:49 | PCM.OPRPT ---
Procedures Musculoskeletal [id number]-29xxx: Other Procedure See Report Operative Report (Standard) Operative Information Date of Procedure: 07/30/25 Pre-Operative Diagnosis: C3-7 stenosis with cord compression, myelopathy Post-Operative Diagnosis: Same Surgery/Procedure Performed: C3-7 ACDF stereo plotter operator: Yes Office Services Assistant: Didi Chung Tasks completed by administrative assistant receptionist: Closing, Removing tissue, Implanting device, Hemostasis: Electrocautery and Retracting Type of Anesthesia: General RN Documented Start/Stop Times: Operation Date: 07/30/25 08:00 Case Time Into Pre-Op 07/30/25 06:03 Out of Pre-Op 07/30/25 08:16 Anesthesia Start 07/30/25 08:22 Into Room 07/30/25 08:22 Procedure Start 07/30/25 09:01 Procedure End 07/30/25 14:36 Anesthesia End 07/30/25 14:43 Out of Room 07/30/25 14:43 Into Recovery 07/30/25 14:47 Procedure Start Time: 09:01 Procedure Stop Time: 14:36 Select all DRAINS/GRAFTS/IMPLANTS that apply: Drains Drain details: [place] , Graft Graft details: Structural allograft cortical cancellous strut, DBX and Implanted device Implanted device details: Medtronic [place] Elite plate instrumentation Estimated Blood Loss: 50 cc Specimen collected: No Description of surgery: Preoperative diagnosis: C3-7 disc degeneration with stenosis, cord compression, myelopathy Postoperative diagnosis: Same Name of procedure: C3-7 anterior cervical discectomy and fusion with plate instrumentation - Anterior cervical fusion C3-4, CPT code 92448 - Anterior plate instrumentation C3-7, CPT code 08824/59 - Anterior cervical fusion C4-5, CPT code 48343/51 - Anterior cervical fusion C5-6, CPT code 33008/51 - Anterior cervical fusion C6-7, CPT code 31972/51 -C3-4 structural allograft bone with DBX, CPT code 95952 - C4-5 structural allograft bone with DBX, CPT code 02633 - C5-6 structural allograft bone with DBX, CPT code 54608 - C6-7 structural allograft bone with DBX, CPT code 93191 Attending surgeon: Frank Hong M.D. Anesthesia: Gen. endotracheal Estimated blood loss: 50 mL Complications: None Instrumentation used: Medtronic [place] Elite plate, LASR corticocancellous block Indications: The patient is a pleasant 60-year-old lady who presented with neck pain, worsening dyspnea difficulty with dexterity and balance, upper extremity weakness. MRI showed C3-7 disc degeneration with stenosis with cord compression. In order to halt the progression of myelopathy, the patient requested surgical treatment. All risks and benefits of the procedure were explained to the patient. The risks include but are not limited to infection, bleeding, injury to nerves and vessels, vertebral artery injury, spinal cord injury, paralysis, vocal cord paralysis, injury to esophagus, pseudoarthrosis, need for further procedures, adjacent segment degeneration. Procedure: The patient was identified in the preoperative suite using unique patient identifiers. Skin was marked consent was taken and all questions were answered. The patient was then brought back to the operative room and a timeout was performed. General endotracheal anesthesia was given. Intraoperative neuro monitoring leads were applied. The patient was carefully positioned supine on a regular OR table. A lateral view with a C-arm was done to identify the level and to define the incision. The anterior neck was then prepped and draped in the usual fashion. A final timeout was then performed. A longitudinal oblique skin incision was taken to the left of midline. Subcutaneous tissue was then divided with Bovie. Platysma was identified and cut along the incision with scissors. The fascial interval between the sternocleidomastoid and the larynx was developed. Omohyoid was identified and retracted. The esophagus with the larynx was retracted medially to reach the prevertebral fascia. Marker x-ray was performed with bent spinal needle and disc space and levels were confirmed. Longus coli muscle was elevated on both sides at and above and below C3-7 discs. Self-retaining retractors were then placed. A long handle knife was then used to perform annulotomy at C3-4. Disc fragments were removed with the pituitary. [place] pins were placed in C3 and C4 for disc distraction. Curettes and bur was utilized to remove cartilage from the endplates. Discectomy was performed laterally up to the uncovertebral joints. Posterior osteophytes were thinned down with the bur and adequate decompression in the central and foraminal areas were performed and PLL was thinned out. Once the disc space was prepared, trials of various sizes were utilized. Thorough irrigation was given. 6 mm LASR cortical cancellous allograft bone large footprint was then fashioned in such a way that concavities were burred out inferiorly and superiorly and half cc of DBX (demineralized bone matrix) was squeezed into the cancellous portion. The graft was then inserted into the C3-4 disc space. The retractors were then repositioned and the procedure was repeated for C4-5, C5-6, C6-7 discs with complete discectomy. Graft sizes were 6 mm at with large footprint at C4-5, C5-6, C6-7. The grafts were found to be in good apposition with good pullout strength. A 75 mm Medtronic [place] Elite plate was then fixed to C3-7 with 16 mm screws. A lateral x-ray was then taken to check the length of the screws. Both AP and lateral x-rays showed good positioning of plate and screws. The locking mechanism over the screw heads was then turned. Thorough irrigation was again given. Hemostasis was achieved. A [place] drain was then inserted. Closure was done with 3-0 Vicryl for the platysma and subcutaneous tissue layers and 4-0 Monocryl for the skin. Closure was done around the drain. Steri-Strips were applied and dressing was done with 4 x 4 gauze and Tegaderm. A cervical collar was then applied. The patient was then woken up from anesthesia extubated and taken to PACU in stable condition. From here, the patient will be transitioned to the floor. Intraoperative neuro monitoring was performed throughout this procedure. Motor evoked potentials were run periodically. All potentials remained at baseline throughout the procedure. I was present for the entire surgery and performed the surgery myself. Hoist Mechanic Didi Chung PA-C. My physician assistant professor of geography was a vital part of this case. They were important in appropriate retraction during the case, and protection of soft tissues during the procedure. Their intimate knowledge of the case and my steps aided in safe and expedient completion of the procedure as well as appropriate position of the patient during the surgery. They were also vital in assisting with closure under my direct supervision. Surgical Findings: See operative note Complications Complications: No
--- NOTE | 2025-07-30 14:56 | OP.PCM_ITS ---
Procedures Musculoskeletal [id number]-29xxx: Other Procedure See Report Operative Report (Standard) Operative Information Date of Procedure: 07/30/25 Pre-Operative Diagnosis: C3-7 stenosis with cord compression, myelopathy Post-Operative Diagnosis: Same Surgery/Procedure Performed: C3-7 posterior spinal instrumented fusion manager massage department: Yes Chalk Extruding Machine Operator: Didi Chung Tasks completed by food and beverage assistant: Closing, Removing tissue, Implanting device, Hemostasis: Electrocautery and Retracting Type of Anesthesia: General RN Documented Start/Stop Times: Operation Date: 07/30/25 08:00 Case Time Into Pre-Op 07/30/25 06:03 Out of Pre-Op 07/30/25 08:16 Anesthesia Start 07/30/25 08:22 Into Room 07/30/25 08:22 Procedure Start 07/30/25 09:01 Procedure End 07/30/25 14:36 Anesthesia End 07/30/25 14:43 Out of Room 07/30/25 14:43 Into Recovery 07/30/25 14:47 Procedure Start Time: 09:01 Procedure Stop Time: 14:36 Select all DRAINS/GRAFTS/IMPLANTS that apply: Graft Graft details: DBX and Implanted device Implanted device details: [place] PCSS Estimated Blood Loss: 50 cc Specimen collected: No Description of surgery: Preoperative diagnosis: C3-7 disc degeneration with stenosis, myelopathy Postoperative diagnosis: Same Name of procedures: C3-7 posterior instrumented fusion, prone: ? C3-4 posterior spinal fusion 27168 ? C3-7 posterior pedicle screw instrumentation 87834 ? C4-5 posterior fusion 97798/51 ? C5-6 posterior fusion 35841/51 ? C6-7 posterior fusion 52293/51 ? Allograft cancellous chips Attending Surgeon: Dr. Frank Hong Estimated blood loss: 50 mL (total for entire case) Anesthesia: General Complications: None Instrumentation: [place] [employer] PCSS Procedure: After the anterior procedure was complete, the patient was then carefully positioned prone on a regular OR table over parallel gel rolls and molded face pillow. All bony prominences were well-padded. Abdomen was free. Reverse Trendelenburg position was given. 2 C arm machines were positioned for AP and lateral views. A lateral C-arm was passed underneath and tilted away to allow the AP C arm to come from the head end. Post-flip Baseline neuro monitoring potentials were recorded. AP and lateral views were taken to make sure the patient was positioned with neutral rotation and levels were confirmed. Skin was then prepped and draped in the usual fashion. A final time-out was then performed. Skin marker was utilized to flor on the skin in the midline, medial facet line, lateral facet line bilaterally. End on view of the facets was taken and transversely marked on the skin. Spinal needle was then passed entering at the medial facet line going slightly laterally towards the facet joint starting at C6-7 on the left. Marcaine with epi was injected through this tract. Paramedian incision was made a centimeter above and below the needle. The same knife was utilized to make a vertical incision over the fascia as well. Facet finder #1 instrument was then passed vertically and then turned transversely and this was entered into the C6-7 left facet joint such that it was in the midline of the facet and directed somewhat laterally but still within the facet joint. After entering the facet joint this was malleted up to the stop. This was confirmed on AP and lateral view. Once adequate position was confirmed, guide instruments were passed to guide the rasps and the facet finder was removed. Rasps were used to decorticate the facet process above and below. Straight drill was then used. A 4 mm x 10 mm [place] PCSS titanium cage was then packed with DBX was then inserted. This was confirmed again on AP lateral view to be in good position. 2 screws were placed 1 superiorly and 1 inferiorly at the facet process through the cage. Additional DBX was then packed on top of the cage and guide instruments were removed. This process was then repeated for C5-6, C4-5 facets on the left as well as C5-6, C4-5, C3-4 facets on the right. Instrumentation for left C3-4 facet was also attempted however the facet was diastases enough and the c ancellous bone did not allow good fixation and the cage was removed. Hemostasis was achieved. Closure was done in layers with 0 Vicryls for the fascia, 2-0 Vicryls for the subcutaneous tissue, and les for the skin. Dressings were applied covered with Tegaderm. The patient was then turned supine onto a hospital bed. Cervical collar was applied. The patient was extubated and taken to PACU in stable condition. The patient tolerated the procedure well and no complications occurred. [place] PCSS instrumentation system was utilized in this case. No dural tear was identified intraoperatively. Neuromonitoring potentials stayed at baseline throughout the case. I was present for the entirety of the case and performed the surgery. Director Quality Systems Didi Chung PA-C. My physician assistant plant manager was a vital part of this case. They were important in appropriate retraction during the case, and protection of soft tissues during the procedure. Their intimate knowledge of the case and my steps aided in safe and expedient completion of the procedure as well as appropriate position of the patient during the surgery. They were also vital in assisting with closure under my direct supervision. Surgical Findings: See operative note Complications Complications: No
--- NOTE | 2025-07-30 15:01 | PCM.POST.ANE ---
Anesthesia: Postop Eval I Current Vital Signs Temperature: 98.7 F Pulse Rate: 114 Blood Pressure: 165/97 (RN to call Dr. Smiley for BP control) Respiratory Rate: 16 Pulse Ox: 100 Oxygen Delivery Method: Room Air Assessment Airway patent: Yes Spontaneous unlabored respirations: Yes Mental status: Awake and Calm nausea: No Vomiting: No Anesthesia Complication: No Fluid Hydration Crystalloid volume administer (ml): 2,500 Total IV fluid infused: 2,500 Progress Note Anesthesia document: Postop Eval 1 completed: Yes
[2025-07-30] MEDS: Cefazolin 2 GM in 0.9% Normal Saline (100mL Bag) 100 ML IV ×2 (17:08→23:56)
[2025-07-30] MEDS: 0.9% Normal Saline (250mL Bag) 250 ML 15 ML IV (17:08)
--- NOTE | 2025-07-30 17:38 | POSTOPAN2_ITS ---
Anesthesia Postop Eval I Sum Postop Eval Completion status Anesthesia document: Postop Eval 1 completed: Yes Anesthesia Postop Eval I Summary Anesthesia Postop Eval I Summary: Anesthesia Postop Eval I: Assessment Summary Airway patent Yes 07/30/25 15:02 BEHAVIORAL [email or web address] [email or web address] Spontaneous unlabored Yes 07/30/25 15:02 BEHAVIORAL HEALTH [email or web address] respirations Mental status Awake,Calm 07/30/25 15:02 BEHAVIORAL HEALTH [email or web address] nausea No 07/30/25 15:02 BEHAVIORAL HEALTH [email or web address] Vomiting No 07/30/25 15:02 BEHAVIORAL HEALTH [email or web address] Anesthesia Postop Eval I: Fluid Summary Crystalloid volume administer 2,500 07/30/25 15:02 BEHAVIORAL HEALTH [email or web address] (ml) Colloids volume administered ( ml) Blood Product volume administered (ml) Total IV fluid infused 2,500 07/30/25 15:02 BEHAVIORAL HEALTH [email or web address] Anesthesia Postop Eval I: Summary Notes Anesthesia Complication No 07/30/25 15:02 BEHAVIORAL HEALTH [email or web address] Anesthesia Complication Comment: Post-operative progress note Anesthesia: Postop Eval II Evaluation Mental status: Awake and Calm Pain Level: 3 nausea: No Vomiting: No Complications Anesthesia Complication: No
--- NOTE | 2025-07-30 17:38 | PCM.POSTANE2 ---
Anesthesia Postop Eval I Sum Postop Eval Completion status Anesthesia document: Postop Eval 1 completed: Yes Anesthesia Postop Eval I Summary Anesthesia Postop Eval I Summary: Anesthesia Postop Eval I: Assessment Summary Airway patent Yes 07/30/25 15:02 [email or web address] Spontaneous unlabored Yes 07/30/25 15:02 [email or web address] respirations Mental status Awake,Calm 07/30/25 15:02 [email or web address] nausea No 07/30/25 15:02 [email or web address] Vomiting No 07/30/25 15:02 [email or web address] Anesthesia Postop Eval I: Fluid Summary Crystalloid volume administer 2,500 07/30/25 15:02 [email or web address] [email or web address] (ml) Colloids volume administered ( ml) Blood Product volume administered (ml) Total IV fluid infused 2,500 07/30/25 15:02 [email or web address] Anesthesia Postop Eval I: Summary Notes Anesthesia Complication No 07/30/25 15:02 [email or web address] Anesthesia Complication Comment: Post-operative progress note Anesthesia: Postop Eval II Evaluation Mental status: Awake and Calm Pain Level: 3 nausea: No Vomiting: No Complications Anesthesia Complication: No
--- NOTE | 2025-07-30 18:15 | PCM.PN.HOSP ---
Subjective Subjective 60-year-old female presented to the hospital for an elective C3-7 ACDF for stenosis and cord compression with myelopathy. Doing well after surgery was complaining about some eye pain likely dry eyes, will continue with the saline drops. Objective Data Objective Data Vital Signs: Vital Signs Temp Pulse Resp BP Pulse Ox O2 Del Method O2 Flow Rate 97.3 F L 95 16 145/96 H 96 Nasal Cannula 4 07/30/25 16:46 07/30/25 16:46 07/30/25 16:46 07/30/25 16:46 07/30/25 16:46 07/30/25 16:46 07/30/25 16:46 Oxygen Flow Rate (L/min) 4 Oxygen Delivery Method Nasal Cannula Weight: 143 lb 4.807 oz Body Mass Index (BMI) 27.1 Intake & Output: Intake and Output for Last 24 Hours 07/29/25 07/30/25 07/31/25 03:59 03:59 03:59 Intake Total 4237 / 4237 Output Total 425 / 425 Balance 3812 / 3812 Lab / Micro Data 07/31/25 05:49 07/31/25 05:49 Labs: Laboratory Results - last 24 hr 07/30/25 06:42: POC Glucose 82 Micro: Microbiology 07/29/25 13:13 Swab (Method) Nasal Screen MRSA/MSSA - Final Physical Exam Narrative General: Alert, Oriented x3, Cooperative, No apparent distress HEENT: Atraumatic, PERRLA, EOMI, Normocephalic Oral: Moist Mucosa Neck: C-collar Lungs: Diminished, Normal air movement, No rhonchi, No wheeze, No rales Cardiovascular: Regular rate, Regular Rhythm, Normal S1, Normal S2, No murmurs Abdomen: Soft, Non Tender, Non-Distended, No Hepato-splenomegaly Extremities: No edema, Capillary Refill Less than 3 Seconds Skin: No rashes, No breakdown Musculoskeletal: No Tenderness to Palpation of Joints or Extremities Neurological: No focal neurological deficits, moves all extremities Psych/Mental Status: Normal Affect, Appropriate Assessment & Plan Assessment/Plan (1) Cervical stenosis of spinal canal: (2) Status post cervical spinal fusion: PLAN: Plan 1. Cervical cord stenosis status post C3-7 ACDF ? PT/OT ? Pain management per primary ? Will obtain lab work in the morning ? Discharge planning per primary 2. Essential HTN ? Blood pressures are stable ? Continue with her home medications 3. Hypothyroidism ? Stable ? Continue with Synthroid 4. GERD ? Stable ? Continue with PPI DVT: Per primary Charges/Coding Visit Charges Office Visits / Consults: 63989 OV L3 New 30min
[2025-07-30] MEDS: 0.9% Saline Lock 10 ML Syringe IV ×2 (20:04→22:53)
[2025-07-30] MEDS: Glycerin/Hypromellose/PEG400 15 ml Bottle 1 DRP RIGHT EYE ×2 (21:02→22:54)
[2025-07-30] MEDS: Senna/Docusate Sodium 1 Tablet 2 TABLET PO (22:54)
[2025-07-31 03:24] VITALS: BP 141/88; PULSE 100; RESP 18; TEMP 36.9; O2SAT 97
--- NOTE | 2025-07-31 05:20 | RAD_ITS ---
PROCEDURE: CERV SPINE 2 OR 3 VIEWS 07/31/2025 REASON FOR EXAM: S/P CERVICAL FUSION TECHNIQUE: Procedure Code: RADSPCL Modality: DX Procedure: CERV SPINE 2 OR 3 VIEWS COMPARISON: 06/30/2025 FINDINGS: Reduced cervical curve in keeping with muscle spasm. Newly appreciated anterior cervical fixation with intervertebral disc cages. No hardware complications. Diffuse soft tissue swelling is noted. RAD/Cerv Spine 2 or 3 Views IMPRESSION: Reduced cervical curve in keeping with muscle spasm Cervical ORIF changes with no hardware complications. [facility]
[2025-07-31] MEDS: 0.9% Saline Lock 10 ML Syringe IV ×2 (05:44→10:35)
[2025-07-31 06:26] LABS: Hematocrit 32.5 % (37-47); Hemoglobin 10.4 g/dL (12.0-15.0); Immature Granulocytes Count 0.050 X10^3/uL (0.0-0.0); Mean Corp Hgb Conc 32.0 g/dL (32-36); Mean Corpuscular Volume 86.2 fL (81-99); Mean Platelet Vol. 9.4 fl (6.2-12.0); NRBC Flagged by Analyzer 0 % (0-5); Platelet Count 256 K/mm3 (150-450); RBC Distribution Width CV 13.8 % (11.6-14.6); RBC Distribution Width SD 43.5 fl (35.1-43.9); Red Blood Count 3.77 M/mm3 (4.2-5.4); White Blood Count 12.2 K/mm3 (4.4-11.0)
[2025-07-31 07:00] LABS: Anion Gap 13 (5-15); BUN 7 mg/dL (4-19); BUN/Creat Ratio 9.0 RATIO (10-20); Calcium,Total 9.4 mg/dL (7.6-11.0); Carbon Dioxide 22.5 mmol/L (21.0-32.0); Chloride 105 mmol/L (98-108); Estimated Creatinine Clearance 68.91 ml/min (50-250); Glucose 223 mg/dL (70-99); Potassium 4.3 mmol/L (3.3-5.1)
[2025-07-31 08:15] VITALS: BP 146/96; PULSE 103; RESP 18; TEMP 37.2; O2SAT 94
[2025-07-31] MEDS: Senna/Docusate Sodium 1 Tablet 2 TABLET PO (08:30)
--- NOTE | 2025-07-31 10:13 | PCM.PN.BLA ---
Progress Note Eye pain is improved with eyedrops, she is complaining of surgical pain. Lab work is okay continue with her home medications. Medically stable for discharge pending surgical evaluation.
--- NOTE | 2025-07-31 12:05 | CASEMGMT ---
Noted PT eval, pt does not demonstrate a need for further therapy. Pt has a walker at home if needed.
--- NOTE | 2025-07-31 12:54 | DCINST_ITS ---
Discharge Instructions DC O2, CPAP, BIPAP needs Home O2 Discharge instructions: No Follow Up Care Test Results: Test results from this visit will be discussed in further detail at your follow- up appointment, if applicable. Discharge Plan Admission Admit Date/Time: 07/30/25 14:44 Attending Provider: Frank Hong Primary Care Provider: Jabari Murillo Consulting Providers: [place] Instructions Patient Instructions: Cervical Fusion Dc Additional Instructions / Restrictions: Keep Tegaderm and gauze clean and dry. After 5 days remove the Tegaderm and gauze and cover incision with a Band-Aid. Replace Band-Aid daily thereafter. Wear cervical collar full-time for the first 2 weeks. Eat soft solid foods as needed for dysphagia. Sleep in a recliner to help with swelling. No bending, lifting, twisting. Follow-up in clinic in 2 weeks. Discharge Orders/Prescriptions Prescriptions: New acetaminophen 500 mg Tablet 1,000 mg PO Q6H Qty: 30 0RF methocarbamol 500 mg Tablet 750 mg PO TID PRN (Reason: pain/spasms) Qty: 30 0RF oxycodone 5 mg Tablet 2.5 - 5 mg PO Q6H PRN (Reason: pain) 7 Days Qty: 28 0RF sennosides-docusate sodium [Stimulant Laxative Plus] 8.6-50 mg Tablet 2 tab PO BID PRN (Reason: constipation) Qty: 14 0RF Continued amlodipine 5 mg tablet 5 mg PO QDAY omeprazole 40 mg capsule,delayed release(DR/EC) 40 mg PO QDAY losartan 25 mg tablet 25 mg PO QDAY gabapentin 300 mg capsule 900 mg PO BID Dupixent Pen 300 mg/2 mL pen injector 300 mg subcut Q15D Patient Comments: [NO ORIGINAL SIG] levothyroxine 88 MCG tablet 88 mcg PO DAILY Patient Comments: THYROID ergocalciferol (vitamin D2) 1,250 mcg (50,000 unit) capsule 1,250 mcg PO QWEEK Trulicity 4.5 mg/0.5 mL pen injector 4.5 mg subcut QWEEK Discontinued tizanidine 4 mg tablet 8 mg PO Q8H Other Ambulatory Orders: 12 Lead EKG (Routine) Timeframe: 1 Day Location: None Selected Ordered By: Dr. Frank Hong Referrals / Follow Up: Jabari Murillo MD [Primary Care Provider, Internal Medicine] Disposition Disposition (needs filled in before D/C Order can be placed): Home, Self Care
[2025-07-31 13:20] VITALS: BP 152/94; PULSE 110; RESP 17; TEMP 36.7; O2SAT 95
--- NOTE | 2025-07-31 13:41 | PHA.DC.COU.R ---
Pharmacy [facility] has performed discharge medication counseling for this patient. The patient was counseled on the following discharge medications and changes in medications for homegoing review. - Acetaminophen 500 mg tablet, Methocarbamol 500 mg tablet, Oxycodone 5 mg tablet, Sennosides/docusate 8.6/50 mg tablet The Reason for Use, instructions for use, and potential side effects were reviewed for all new medications. The patient's questions regarding all of their medications were answered. The patient was able to verbally demonstrate an understanding of their discharge medications. Medications at Discharge Home Medications levothyroxine 88 mcg tablet 88 mcg PO DAILY 05/28/14 amlodipine 5 mg tablet 5 mg PO QDAY 07/04/25 dupilumab 300 mg/2 mL subcutaneous pen injector (Dupixent) 300 mg subcut Q15D 07/04/25 gabapentin 300 mg capsule 900 mg PO BID 07/04/25 losartan 25 mg tablet 25 mg PO QDAY 07/04/25 omeprazole 40 mg capsule,delayed release 40 mg PO QDAY 07/04/25 dulaglutide 4.5 mg/0.5 mL subcutaneous pen injector (Trulicity) 4.5 mg subcut QWEEK 07/29/25 ergocalciferol (vitamin D2) 1,250 mcg (50,000 unit) capsule 1,250 mcg PO QWEEK 07/29/25 acetaminophen 500 mg tablet 1,000 mg (2 x 500 mg) PO Q6H #30 tabs 07/31/25 methocarbamol 500 mg tablet 750 mg (1.5 x 500 mg) PO TID PRN pain/spasms #30 tabs 07/31/25 oxycodone 5 mg tablet 2.5 - 5 mg (0.5 - 1 x 5 mg) PO Q6H PRN pain 7 days #28 tabs 07/31/25 sennosides 8.6 mg-docusate sodium 50 mg tablet (Stimulant Laxative Plus) 2 tab PO BID PRN constipation #14 tabs 07/31/25
== END 2025-07-31 17:04 | disposition home or self-care (01) ==
LOC: SDC 15:47 → MS3 15:47
PROVIDERS: Anesthesiology; Student in an Organized Health Care Education/Training Program; Admitting Provider Orthopaedic Surgery Orthopaedic Surgery of the Spine; PCP Internal Medicine; Referring Provider Orthopaedic Surgery Orthopaedic Surgery of the Spine; Visit Provider Orthopaedic Surgery Orthopaedic Surgery of the Spine
PROC: (CPT 22551; principal; 2025-07-30 07:30)
DX: M48.02 Spinal stenosis, cervical region (principal); E11.9 Type 2 diabetes mellitus without complications; M50.01 Cervical disc disorder with myelopathy, high cervical region; M50.11 Cervical disc disorder with radiculopathy, high cervical region; Z79.899 Other long term (current) drug therapy; I10 Essential (primary) hypertension; Z79.85 Long-term (current) use of injectable non-insulin antidiabetic drugs; Z98.84 Bariatric surgery status; E03.9 Hypothyroidism, unspecified; Z79.890 Hormone replacement therapy; K21.9 Gastro-esophageal reflux disease without esophagitis
CPT/HCPCS: 22551; 22552 ×3; 20930; 20931; 22614 ×3; 22600; 22845; 22843; 36415; 72040; 72050; 76000; 80048; 82962; 83036; 83735; 84443; 85025; 86850; 86900; 86901; 87077; 87081; 93005; 94668; 96365; 96366; 96375; 96376; 97162; 99221; C1713; A4216; G0378; J2405; J3475